=== PATIENT | female | born 1955 | race Caucasian/White ===

== ENCOUNTER 2020-08-11 02:09 | Outpatient (RCR) | payer MEDICARE, OTHER, SELFPAY ==
[2020-08-11] MEDS: COVID-19 VACC, MRNA(PFIZER)/PF 30 MCG/0.3 ML SYRINGE IM (18:42)
[2020-09-01] MEDS: COVID-19 VACC, MRNA(PFIZER)/PF 30 MCG/0.3 ML SYRINGE IM (18:24)
== END 2020-11-10 23:59 ==
LOC: IMMUN 02:09
PROVIDERS: PCP Nurse Practitioner Family; Visit Provider Family Medicine
DX: Z23 Encounter for immunization (principal)
CPT/HCPCS: 0001A; 0002A; 91300

== ENCOUNTER 2023-05-15 14:37 | Inpatient (IN) | payer MEDICARE, OTHER, SELFPAY ==
[2023-05-15 15:30] VITALS: BP 129/69; PULSE 67; RESP 18; TEMP 36.9; O2SAT 98; BMI 26.9
[2023-05-15] MEDS: Oxycodone/Apap 5/325 Tablet PO (18:23)
[2023-05-15 20:15] VITALS: O2SAT 97
[2023-05-15] MEDS: Senna/Docusate Sodium 1 Tablet 2 TABLET PO (21:06)
[2023-05-15] MEDS: Acetaminophen 325 MG Tablet 650 MG PO (21:08)
[2023-05-15 22:00] VITALS: BP 127/75; PULSE 72; RESP 18; TEMP 37.2; O2SAT 97
[2023-05-16] MEDS: Oxycodone/Apap 5/325 Tablet PO ×4 (02:22→21:43)
[2023-05-16 06:02] LABS: Absolute Lymphocyte Count 1.49 X10^3/uL (0.83-4.51); Absolute Neutrophil Count 4.4 X10^3/uL (2.0-7.7); Basophil# 0.04 X10^3/uL; Basophil% 0.5 % (0-1); Eosinophil# 0.51 X10^3/uL; Hematocrit 29.2 % (37-47); Hemoglobin 9.4 g/dL (12.0-15.0); Lymphocyte # 1.49 X10^3/ul (0.83-4.51); Lymphocyte % 20.4 % (19-41); Mean Corp Hgb Conc 32.2 g/dL (32-36); Mean Corpuscular Volume 93.3 fL (81-99); Mean Platelet Vol. 9.7 fl (6.2-12.0); Monocyte# 0.88 X10^3/uL; Monocyte% 12.1 % (0-10); NRBC Flagged by Analyzer 0 % (0-5); Neutrophil # 4.35 X10^3/uL (2.7-7.7); Neutrophil % 59.6 % (47-70); Platelet Count 296 K/mm3 (150-450); RBC Distribution Width CV 12.6 % (11.6-14.6); RBC Distribution Width SD 42.7 fl (35.1-43.9); Red Blood Count 3.13 M/mm3 (4.2-5.4); White Blood Count 7.3 K/mm3 (4.4-11.0)
--- NOTE | 2023-05-16 06:23 | NURSING ---
Dressing changed per order, cleansed with NS and DSD applied. 43 pb intact to surgical incision. No drainage or s/sx of infection noted at this time.
[2023-05-16 06:31] LABS: ALB/GLOB Ratio 0.6 RATIO (0.9-2.4); AST(SGOT) 53 U/L (15-37); Alanine Aminotransfer ALT/SGPT 48 U/L (13-56); Albumin, Serum 2.2 g/dL (3.2-5.0); Alkaline Phosphatase 60 U/L (45-117); Anion Gap 4 (5-15); BUN 19 mg/dL (7-18); BUN/Creat Ratio 28.4 RATIO (10-20); Calcium,Total 8.3 mg/dL (8.5-10.1); Chloride 106 mmol/L (98-107); Creatinine, Serum 0.67 mg/dL (0.55-1.02); EST Glomerular Filtration Rate 93 mL/min (>60); Est Glom Filt Rate - Afr Amer 112 mL/min (>60); Estimated Creatinine Clearance 54.71 ml/min; Globulin 3.5 g/dL (2.2-4.2); Glucose 96 mg/dL (74-106); Magnesium 2.3 mg/dL (1.6-2.6); Phosphorus 3.9 mg/dL (2.5-4.9); Potassium 4.1 mmol/L (3.5-5.1); Protein, Total 5.7 g/dL (6.4-8.2); Sodium Level 139 mmol/L (136-145)
[2023-05-16] MEDS: Acetaminophen 325 MG Tablet 650 MG PO ×2 (07:55→19:49)
[2023-05-16] MEDS: Losartan Potassium 50 MG Tablet PO (07:55)
[2023-05-16] MEDS: Venlafaxine XR 75 MG Capsule PO (07:55)
[2023-05-16] MEDS: Senna/Docusate Sodium 1 Tablet 2 TABLET PO ×2 (07:55→19:50)
[2023-05-16] MEDS: Multivitamins,Therapeutic Tablet 1 TABLET PO (07:55)
[2023-05-16 09:55] VITALS: BP 136/79; PULSE 63; RESP 18; TEMP 36.8; O2SAT 94
--- NOTE | 2023-05-16 10:14 | EX.PCM.HP.RE ---
HPI - General General Date of Admission: 05/15/23 Date of Service: 05/16/23 Chief Complaint: Debility - S/p Hemilaminectomy and fusion HPI Narrative FILIBERTO CORMIER, is a 68 F with PMH HTN, HLD, Anxiety who presents as a transfer from [facility] for physical and occupational therapy. The patient was admitted for an elective hemilaminectomy and fusion of her lumbar spine. The patient reports she has had problems with her back for about 15 years. She tried conservative therapy without improvement and her symptoms were progressively worsening, prompting surgery. The surgery was completed on 05/09, on the day of admission, which went well without complications. The patient clinically improved. Therapy saw the patient who felt she would benefit from rehab. Once stable, she was transferred to [facility] inpatient rehab for 3 hours of daily rehab and strengthening with a goal to return home with [facility]. The patient reports that she is feeling pretty good. She reports her left leg was hurting earlier, but the pain medications must have kicked in. She reports only mild aching in her back and leg currently. She reports her appetite is slowly improving and she is moving her bowels. She thought she did well with therapy this morning. [facility] Medical History Basal cell carcinoma COVID Endometriosis GERD (gastroesophageal reflux disease) IBS (irritable bowel syndrome) Migraine Scoliosis Smoker Home Medications atorvastatin 40 mg tablet 40 mg PO QHS cholesterol 05/15/23 [History Last Taken Unknown] ergocalciferol (vitamin D2) 1,250 mcg (50,000 unit) capsule 50,000 unit PO QMONTH supplement 05/15/23 [History Last Taken 05/09/23] multivitamin 1 tab PO DAILY supplement 05/15/23 [History Last Taken Unknown] oxycodone-acetaminophen 5 mg-325 mg tablet 2 tab PO Q6H PRN pain 05/15/23 [History Last Taken Unknown] valsartan 160 mg tablet 160 mg PO DAILY blood pressure 05/15/23 [History Last Taken Unknown] venlafaxine 75 mg capsule,extended release 24 hr (Effexor XR) 75 mg PO DAILY depression 05/15/23 [History Last Taken Unknown] Allergy/AdvReac Type Severity Reaction Status Date / Time No Known Allergies Allergy Verified 05/15/23 14:47 Family History (Updated 05/16/23 @ 11:[address] Evonne Bishop MD) Father Heart failure Family History no significant family his Surgical History (Updated 05/16/23 @ 11:[address] Evonne Bishop MD) Cataract extraction status History of appendectomy History of tonsillectomy S/P hemilaminotomy S/P ORIF (open reduction internal fixation) fracture Social History (Updated 05/16/23 @ 11:[address] Evonne Bishop MD) household members: none current occupational status: retired current occupation: Worked at [employer] pets and animals: Yes pets and animals: cat(s) and dog(s) Smoking Status: Current every day smoker tobacco type: cigarettes Smoking packs per day: 1.5 Smoking cigarettes per day: 30.0 Years smoked: 5 Smoking pack-years: 7.50 quit status: considering quitting alcohol intake: current alcohol intake frequency: 0-2 drinks per day Alcohol type: beer substance use type: does not use do you feel safe at home: Yes ROS Constitutional Constitutional: Reports weakness; Denies anorexia, change in weight or fever(s) Eyes Eyes: Denies blurry vision or change in vision ENT HEENT: Reports other Details: dry mouth ; Denies abnormal hearing, dizziness, headache(s), nasal congestion or sore throat Cardiovascular Cardiovascular: Reports lightheadedness; Denies abdominal pain, chest pain, dizziness, dyspnea, edema, irregular heart rhythm, leg edema, nausea, numbness in extremities, palpitations, pedal edema, pounding heartbeat, rapid heart rate, vomiting or weight gain Respiratory/Chest Respiratory/Chest: Denies chest tightness, cough or dyspnea Gastrointestinal Gastrointestinal: Denies abdominal pain, constipation, diarrhea, nausea, vomiting or weight changes Genitourinary Genitourinary: Denies burning urination, difficulty urinating or dysuria Musculoskeletal Musculoskeletal: Reports back pain; Denies joint swelling, numbness or tingling Integumentary Integumentary: Denies rash or wounds Neurologic Neurologic: Denies dizziness, frequent falls, headache(s), numbness, syncope, tingling or weakness Psychiatric Psychiatric: Denies anxiety, confusion, depression, suicidal ideation or suicidal thoughts Vital Signs Vital Signs Vital Signs: 05/15/23 15:30 05/15/23 23:00 05/15/23 22:00 Temperature 98.4 F 99.0 F Temperature Source Temporal Temporal Pulse Rate 67 72 Respiratory Rate 18 18 Respiratory Effort Respiratory Depth Respiratory Pattern Blood Pressure 129/69 H 127/75 H Blood Pressure Mean 89 92 Blood Pressure Source Monitor Monitor Blood Pressure Position Semi-Fowlers Semi-Fowlers Blood Pressure Location Left Arm Left Arm Pulse Ox 98 97 Oxygen Delivery Method Room Air Room Air Room Air 05/15/23 20:15 05/16/23 09:55 Temperature 98.3 F Temperature Source Temporal Pulse Rate 63 Respiratory Rate 18 Respiratory Effort Normal Non-Labored Respiratory Depth Normal Respiratory Pattern Normal Blood Pressure 136/79 H Blood Pressure Mean 98 Blood Pressure Source Monitor Blood Pressure Position Semi-Fowlers Blood Pressure Location Right Arm Pulse Ox 97 94 Oxygen Delivery Method Room Air Room Air Weight Weight: 182 lb 2 oz Body Mass Index (BMI) 26.9 Indicators for Scoring Admitted with or Primary Diagnosis of CVA/Stroke: No Hx of CVA/Stroke: No Physical Exam Const alert, oriented x3, no apparent distress and well nourished Constitutional Narrative: Laying in bed General Appearance: cooperative and comfortable; Negative for in distress, ill appearing or diaphoretic Orientation / Consciousness: awake, oriented to person, oriented to place and oriented to time Exam Limitations: Negative for altered mental status HEENT normocephalic, head/scalp atraumatic, moist oral mucous membranes and oropharynx normal Head and Scalp: normocephalic and atraumatic Face and Sinus: normal facial exam Eyes PERRL General Eye: normal appearance of both eyes Chest inspection of chest normal Chest: symmetrical chest wall rise Resp normal respiratory effort, normal air movement, no use of accessory muscles and clear to auscultation bilaterally Effort and Inspection: able to speak in complete sentences and symmetric chest movement; Negative for respiratory distress or audible wheezes Auscultation: clear to auscultation bilaterally Cardio regular rate, regular rhythm and no murmurs Rate: regular rate Rhythm: regular rhythm Heart Sounds: Negative for murmur GI normal to inspection, nondistended, normoactive bowel sounds, soft to palpation, non-tender and non-distended Auscultation: normoactive bowel sounds Palpation: soft; Negative for tender or guarding Back/Spine Back/Spine Narrative: Dressing in place, which is clean, dry and intact Extremity normal to inspection General Extremity: Negative for edema Skin no rashes or lesions noted General Skin Exam: no breakdown Lesions: no lesions Rashes: no rashes Neuro oriented x3 Sensorium / Orientation: awake, alert, oriented to person, oriented to place and oriented to time Speech: speech normal Psych mental status grossly normal, cooperative, affect normal and speech normal Appearance: grossly normal Attitude: calm Results Medical Records Data Attestation: I reviewed the patient's medical records Lab / Micro Data Attestation: I reviewed the patient's lab results. 05/16/23 05:12 05/16/23 05:12 Labs: Laboratory Results - last 24 hr 05/16/23 05:12: WBC 7.3, RBC 3.13 L, Hgb 9.4 L, Hct 29.2 L, MCV 93.3, MCH 30.0, MCHC 32.2, RDW Std Deviation 42.7, RDW Coeff of Lizzy 12.6, Plt Count 296, MPV 9.7, Immature Gran % (Auto) 0.400, Neut % (Auto) 59.6, Lymph % (Auto) 20.4, Flagler % (Auto) 12.1 H, Eos % (Auto) 7.0 H, Baso % (Auto) 0.5, Absolute Neuts (auto) 4.4, Absolute Lymphs (auto) 1.49, Nucleated RBC % 0, Sodium 139, Potassium 4.1, Chloride 106, Carbon Dioxide 29.0, Anion Gap 4 L, BUN 19 H, Creatinine 0.67, Estim Creat Clear Calc 54.71, Est GFR (MDRD) Af Amer 112, Est GFR (MDRD) Non-Af 93, BUN/Creatinine Ratio 28.4 H, Glucose 96, Calcium 8.3 L, Phosphorus 3.9, Magnesium 2.3, Total Bilirubin 0.30, AST 53 H, ALT 48, Alkaline Phosphatase 60, Total Protein 5.7 L, Albumin 2.2 L, Globulin 3.5, Albumin/Globulin Ratio 0.6 L Assessment & Plan Assessment/Plan (1) Debility: PLAN: Will admit to the inpatient rehab for physical and occupational therapy. Will continue with 3 hours of daily therapy for strengthening with a goal to return home with [facility]. Will continue with pain control as needed, a bowel regimen and fall precautions. DVT prophylaxis with ambulation and JAKOB hose. Patient will need to follow up with the spine surgeon upon discharge from rehab unit. (2) S/P hemilaminotomy: PLAN: As above. Patient will wear her brace when out of bed and dressing will be changed daily. Dressing can be removed 7-10 days post op. (3) Chronic back pain: QUALIFIERS: Back pain laterality: midline Back pain location: low back pain Sciatica presence: unspecified whether sciatica present Qualified Code(s): M54.50 - Low back pain, unspecified; G89.29 - Other chronic pain PLAN: As above. (4) Acute blood loss anemia: PLAN: Patient's hemoglobin level was 9.4 on arrival to the rehab unit. Her last hemoglobin at [facility] was 10.7 on 05/12. Will continue to monitor closely. (5) Essential hypertension: PLAN: Blood pressure shows good control. Will continue current management and monitor. (6) Mixed hyperlipidemia: PLAN: Stable. Will continue home medications. (7) Anxiety: PLAN: Stable. Will continue home medications. She denies any current concerns about her mental health nor any thoughts of suicide. (8) Vitamin D deficiency: PLAN: Patient takes monthly vitamin D supplements. Will continue current management. (9) Smokes cigarettes: PLAN: Patient declined nicotine patches. She reports she has been without cigarettes for a week since her hospitalization and hasn't had any cravings. She reports she may want patches upon discharge to ensure she doesn't return to them. Charges/Coding Visit Charges Inpatient E&M: 46758 Init Hosp L2
--- NOTE | 2023-05-16 11:13 | REHABEVAL_ITS ---
Admission Information Primary Diagnosis:: Debility - s/p Hemilaminectomy and fusion Actual Problem List:: Bleeding, Skin Intergrity, Pain, ALteration in Cmfrt, Mobility Impaired, Self Care Deficit and BP, Hypertension Potential Problem List:: DVT, Bleeding, Infection, UTI, Falls, Skin Integrity and Depression Risk of Complications DVT: JAKOB Hose and - (Ambulation) Bleeding: Monitor Lab Values Infection: Clinical Staff to Monitor for S/S of infection: and S/S of infection include fever, redness, warmth, etc. Urinary Tract Infection: Monitor for frequency, burning, discomfort, or incontinence. and Nursing will obtain urine sample for urinalysis and C&S when ordered. Falls: Patient will be evaluated for Fall Precautions and Patient will be placed on Fall Precautions as indicated per protocol. Skin Breakdown: Nursing will assess skin daily using assessment tool. and Nursing will place on Skin Breakdown Precautions as indicated. Pain: Clinical staff will assess patient's pain level per protocol. and Medications will be given, if needed, and the pain level reassessed. Plan of Care Patient needs Physical Therapy: For a minimum of 1 hour and At least 5 out of 7 days Patient needs Physical Therapy to improve:: Mobility, Strengthening, Transfers, ROM, Endurance, Stairs, Gait and Balance Patient needs Occupational Therapy: For a minimum of 1 hour and At least 5 out of 7 days Patient needs Occupational Therapy to improve ADL's incl.: Grooming, Bathing, Dressing, Toileting, Toilet transfers and Household tasks Patient requires 24/7 Rehabilitation Nursing for: Pain Issues, Identifying and preventing risk factors, Monitoring and reporting current medical conditions, Assisting with ambulation, transfer, and all ADL's, Teaching patients about disease process and medications, Family teaching, Providing safe environment, Skin integrity and Medication Management Patient needs Phlebotomy Program Coordinator/ Case Management for: Discharge Planning, Arranging Home Equipment or Services and Family Interventions Patient needs Dietary and Nutrition Services for: Adequate Nutrition Goals Patient will remain: free from falls and or injury at time of discharge. Patient will perform bed mobility at: MOD I level of assist. Patient will complete transfers from bed to chair at: MOD I level of assist. Patient will complete upper body dressing at: MOD I level of assist. Patient will complete lower body dressing at: MOD I level of assist. Patient will complete toileting at: MOD I level of assist. Patient will complete grooming at: MOD I level of assist. Patient's skin will: remain intact and free from infection. Patient will receive: adequate nutrition. Discharge Planning Pt Prognosis for Sig. Practical Improv. w/in Reasonable Time: Fair Estimated Length of stay (days): 7 Anticipated D/C Destination: Home with Home Health
--- NOTE | 2023-05-16 11:52 | CASEMGMT ---
Social Work Pt states has LW/POA, not on file here, in safe at home, not able to have them brought in. Alysia Moctezuma is pt's healthcare POA. OLI Alejandro
--- NOTE | 2023-05-16 12:02 | CASEMGMT ---
Social Work See assessment for full details, pt plans to return home at discharge, open to home health if needed, SW will continue to follow. OLI Alejandro
[2023-05-16 19:39] VITALS: BP 131/75; PULSE 58; RESP 17; TEMP 37.1; O2SAT 100
[2023-05-16] MEDS: Atorvastatin Calcium 40 MG Tablet PO (19:49)
[2023-05-17] MEDS: Acetaminophen 325 MG Tablet 650 MG PO (04:06)
[2023-05-17 07:12] VITALS: BP 152/85; PULSE 64; RESP 16; TEMP 36.7; O2SAT 99
[2023-05-17] MEDS: Losartan Potassium 50 MG Tablet PO (08:57)
[2023-05-17] MEDS: Venlafaxine XR 75 MG Capsule PO (08:57)
[2023-05-17] MEDS: Senna/Docusate Sodium 1 Tablet 2 TABLET PO ×2 (08:57→20:18)
--- NOTE | 2023-05-17 10:05 | EX.PCM.PN.RE ---
Subjective Subjective Patient was admitted for daily rehab following a hospital stay for an elective hemilaminectomy and fusion of her lumbar spine. No events overnight. She reports her back pain is pretty well controlled currently. She does request a different pain medication reporting the percocet seems to cause abnormal dreams for her. She reports some mild nausea without vomiting. She continues to eat well, but still notes a lot of food is not appealing. She is moving her bowels regularly. She has no other questions or concerns at this time. Objective Data Objective Data Vital Signs: Vital Signs Temp Pulse Resp BP Pulse Ox O2 Del Method 98.0 F 64 16 152/85 H 99 Room Air 05/17/23 07:12 05/17/23 07:12 05/17/23 07:12 05/17/23 07:12 05/17/23 07:12 05/17/23 07:12 Oxygen Delivery Method Room Air Weight: 182 lb 2 oz Body Mass Index (BMI) 26.9 Intake & Output: Intake and Output for Last 24 Hours 05/15/23 05/16/23 05/17/23 23:59 23:59 23:59 Intake Total 240 / 800 2080 / 2080 360 / 360 Balance 240 / 800 2080 / 2080 360 / 360 Lab / Micro Data Attestation: I reviewed the patient's lab results. 05/16/23 05:12 05/16/23 05:12 Indicators for Scoring Admitted with or Primary Diagnosis of CVA/Stroke: No Hx of CVA/Stroke: No Physical Exam Const alert, oriented x3, no apparent distress and well nourished Constitutional Narrative: Laying in bed General Appearance: cooperative and comfortable; Negative for in distress, ill appearing or diaphoretic Orientation / Consciousness: awake, oriented to person, oriented to place and oriented to time Exam Limitations: Negative for altered mental status HEENT normocephalic and head/scalp atraumatic Head and Scalp: normocephalic and atraumatic Face and Sinus: normal facial exam Eyes General Eye: normal appearance of both eyes Chest inspection of chest normal Chest: symmetrical chest wall rise Resp normal respiratory effort, normal air movement, no use of accessory muscles and clear to auscultation bilaterally Effort and Inspection: able to speak in complete sentences and symmetric chest movement; Negative for respiratory distress or audible wheezes Auscultation: clear to auscultation bilaterally Cardio regular rate, regular rhythm and no murmurs Rate: regular rate Rhythm: regular rhythm Heart Sounds: Negative for murmur GI normal to inspection, nondistended, normoactive bowel sounds, soft to palpation, non-tender and non-distended Auscultation: normoactive bowel sounds Palpation: soft; Negative for tender or guarding Extremity normal to inspection General Extremity: Negative for edema Skin no rashes or lesions noted General Skin Exam: no breakdown Lesions: no lesions Rashes: no rashes Neuro oriented x3 Sensorium / Orientation: awake, alert, oriented to person, oriented to place and oriented to time Speech: speech normal Psych mental status grossly normal, cooperative, affect normal and speech normal Appearance: grossly normal Attitude: calm Assessment & Plan Assessment/Plan (1) Debility: PLAN: Will continue with PT/OT and follow up on findings and recommendations. Continue with PRN pain management, bowel regimen and fall precautions. The patient is requesting a different pain medication, so will change to norco and monitor. (2) S/P hemilaminotomy: PLAN: As above. Patient will wear her brace when out of bed and dressing will be changed daily. Dressing can be removed 7-10 days post op. Patient will need to follow up with the spine surgeon upon discharge from rehab unit. (3) Chronic back pain: QUALIFIERS: Back pain laterality: midline Back pain location: low back pain Sciatica presence: unspecified whether sciatica present Qualified Code(s): M54.50 - Low back pain, unspecified; G89.29 - Other chronic pain PLAN: As above. (4) Acute blood loss anemia: PLAN: Patient's hemoglobin level was 9.4 on arrival to the rehab unit. Her last hemoglobin at [facility] was 10.7 on 05/12. Will continue to monitor closely and repeat on 05/22. (5) Essential hypertension: PLAN: Blood pressure shows good control. Will continue current management and monitor. (6) Mixed hyperlipidemia: PLAN: Stable. Will continue home medications. (7) Anxiety: PLAN: Stable. Will continue home medications. She denies any current concerns about her mental health nor any thoughts of suicide. (8) Vitamin D deficiency: PLAN: Patient takes monthly vitamin D supplements. Will continue current management. (9) Smokes cigarettes: PLAN: Patient declined nicotine patches. She reports she has been without cigarettes for a week since her hospitalization and hasn't had any cravings. She reports she may want patches upon discharge to ensure she doesn't return to them. Charges/Coding Visit Charges Inpatient E&M: 51678 Subs Hosp L1
[2023-05-17] MEDS: Multivitamins,Therapeutic Tablet 1 TABLET PO (11:58)
[2023-05-17] MEDS: HYDROcodone Bitartrate/Apap 5/325 Tablet PO ×2 (13:52→20:17)
[2023-05-17] MEDS: Atorvastatin Calcium 40 MG Tablet PO (20:18)
[2023-05-17 20:27] VITALS: BP 148/76; PULSE 60; RESP 17; TEMP 36.7; O2SAT 97
[2023-05-17 22:00] VITALS: PULSE 71; RESP 14; O2SAT 95
[2023-05-18] MEDS: Acetaminophen 325 MG Tablet 650 MG PO ×3 (00:34→15:32)
[2023-05-18] MEDS: HYDROcodone Bitartrate/Apap 5/325 Tablet PO ×3 (03:41→19:56)
[2023-05-18] MEDS: Senna/Docusate Sodium 1 Tablet 2 TABLET PO ×2 (07:58→20:19)
[2023-05-18] MEDS: Losartan Potassium 50 MG Tablet PO (07:58)
[2023-05-18] MEDS: Venlafaxine XR 75 MG Capsule PO (07:58)
[2023-05-18 08:12] VITALS: BP 172/78; PULSE 79; RESP 15; TEMP 36.2; O2SAT 96
--- NOTE | 2023-05-18 08:24 | PN.REHAB_ITS ---
Subjective Subjective Patient was admitted for daily rehab following a hospital stay for an elective hemilaminectomy and fusion of her lumbar spine. No events overnight. She was seen today on TEAM rounds. Per therapy, she is overall doing well. She requires min assist with bathing, although is noted to be impulsive and tries to bend, which she is not supposed to be doing. She is able to dress her upper body, but does require assistance with lower body dressing. She is at contact guard assist for toilet transfers and stand by assist for getting in/out of bed. Yesterday, the patient's pain medications were adjusted. She does think that it is doing better today and rates her pain 3/10 currently. She reports her nausea has resolved. She is eating well and moving her bowels. She has no other questions or concerns at this time. Objective Data Objective Data Vital Signs: Vital Signs Temp Pulse Resp BP Pulse Ox O2 Del Method 97.2 F L 79 15 172/78 H 96 Room Air 05/18/23 08:12 05/18/23 08:12 05/18/23 08:12 05/18/23 08:12 05/18/23 08:12 05/18/23 08:12 Oxygen Delivery Method Room Air Weight: 182 lb 2 oz Body Mass Index (BMI) 26.9 Intake & Output: Intake and Output for Last 24 Hours 05/16/23 05/17/23 05/18/23 23:59 23:59 23:59 Intake Total 2079 / 0 1100 / 1220 480 / 480 Output Total 600 / 800 400 / 400 Balance 2079 / 0 500 / 420 80 / 80 Lab / Micro Data Attestation: I reviewed the patient's lab results. 05/16/23 05:12 05/16/23 05:12 Indicators for Scoring Admitted with or Primary Diagnosis of CVA/Stroke: No Hx of CVA/Stroke: No Physical Exam Const alert, oriented x3, no apparent distress and well nourished Constitutional Narrative: Sitting up in the chair, working with therapy General Appearance: cooperative and comfortable; Negative for in distress, ill appearing or diaphoretic Orientation / Consciousness: awake, oriented to person, oriented to place and oriented to time Exam Limitations: Negative for altered mental status HEENT normocephalic and head/scalp atraumatic Head and Scalp: normocephalic and atraumatic Face and Sinus: normal facial exam Eyes General Eye: normal appearance of both eyes Chest inspection of chest normal Chest: symmetrical chest wall rise Resp normal respiratory effort, normal air movement, no use of accessory muscles and clear to auscultation bilaterally Effort and Inspection: able to speak in complete sentences and symmetric chest movement; Negative for respiratory distress or audible wheezes Auscultation: clear to auscultation bilaterally Cardio regular rate, regular rhythm and no murmurs Rate: regular rate Rhythm: regular rhythm Heart Sounds: Negative for murmur GI normal to inspection, nondistended, normoactive bowel sounds, soft to palpation, non-tender and non-distended Auscultation: normoactive bowel sounds Palpation: soft; Negative for tender or guarding Back/Spine Back/Spine Narrative: Back brace in place. Dressing was removed. Susan intact. Extremity normal to inspection General Extremity: Negative for edema Skin no rashes or lesions noted General Skin Exam: no breakdown Lesions: no lesions Rashes: no rashes Neuro oriented x3 Sensorium / Orientation: awake, alert, oriented to person, oriented to place and oriented to time Speech: speech normal Psych mental status grossly normal, cooperative, affect normal and speech normal Appearance: grossly normal Attitude: calm Assessment & Plan Assessment/Plan (1) Debility: PLAN: Will continue with PT/OT and follow up on findings and recommendations. Discharge is planned for 05/28 and will be either home with [facility] versus discharge to a SNF since she lives at home alone. Continue with PRN pain management, bowel regimen and fall precautions. (2) S/P hemilaminotomy: PLAN: As above. Patient will continue to wear her brace when out of bed. Patient will need to follow up with the spine surgeon upon discharge from inpatient rehab unit. (3) Chronic back pain: QUALIFIERS: Back pain laterality: midline Back pain location: low back pain Sciatica presence: unspecified whether sciatica present Qualified Code(s): M54.50 - Low back pain, unspecified; G89.29 - Other chronic pain PLAN: As above. (4) Acute blood loss anemia: PLAN: Patient's hemoglobin level was 9.4 on arrival to the rehab unit. [facility] at [facility] was 10.7 on 05/12. Will continue to monitor closely and repeat on 05/22. (5) Essential hypertension: PLAN: Blood pressure is quite elevated this morning. She denies any pain curre ntly, but nursing did report she complained of pain in her back earlier, which may be contributing. Will continue current management and monitor closely. If it remains elevated, will increase patient's losartan dosing. (6) Mixed hyperlipidemia: PLAN: Stable. Will continue home medications. (7) Anxiety: PLAN: Stable. Will continue home medications. She denies any current concerns about her mental health nor any thoughts of suicide. (8) Vitamin D deficiency: PLAN: Patient takes monthly vitamin D supplements. Will continue current management. (9) Smokes cigarettes: PLAN: Patient declined nicotine patches. She reports she has been without cigarettes for a week since her hospitalization and hasn't had any cravings. She reports she may want patches upon discharge to ensure she doesn't return to them. Charges/Coding Visit Charges Inpatient E&M: 57456 Subs Hosp L2
--- NOTE | 2023-05-18 09:05 | CASEMGMT ---
Social Work IDT met with patient for Team meeting. Offered to contact friend or family, but pt denied. DIscussed patient's progress in PT/OT/ST/SN. Educated to Medicare approval of 13 days with DC 05/28. Pt lives home alone and noted limited support. Pt stated she would hire someone to help her. SW provided and educated to [facility] resources. Also offered SNF stay, if needed at time of DC. Will ReTeam next week. SW will continue to follow for DC planning. MARIUSZ MorrellW
[2023-05-18] MEDS: Multivitamins,Therapeutic Tablet 1 TABLET PO (12:08)
[2023-05-18 20:15] VITALS: BP 141/76; PULSE 57; RESP 18; TEMP 36.2; O2SAT 98
[2023-05-18] MEDS: Atorvastatin Calcium 40 MG Tablet PO (20:19)
[2023-05-19] MEDS: HYDROcodone Bitartrate/Apap 5/325 Tablet PO ×3 (02:08→20:48)
--- NOTE | 2023-05-19 02:34 | NURSING ---
0212 pt was tearful and very painful in her back and hips, staff was unable to medicate until this time. pt had been requesting pain medication since 2299. pt had been medicated at the beginning of the shift for the same pain
[2023-05-19 06:00] VITALS: BMI 26.4
[2023-05-19 07:52] VITALS: BP 171/83; PULSE 65; RESP 17; TEMP 36.8; O2SAT 96
[2023-05-19] MEDS: Venlafaxine XR 75 MG Capsule PO (07:53)
[2023-05-19] MEDS: Senna/Docusate Sodium 1 Tablet 2 TABLET PO (07:53)
[2023-05-19] MEDS: Losartan Potassium 50 MG Tablet PO (07:53)
[2023-05-19] MEDS: Losartan Potassium 25 MG Tablet PO (09:47)
[2023-05-19] MEDS: Multivitamins,Therapeutic Tablet 1 TABLET PO (11:30)
[2023-05-19] MEDS: Acetaminophen 325 MG Tablet 650 MG PO (12:44)
[2023-05-19 20:40] VITALS: BP 128/89; PULSE 61; RESP 16; TEMP 36.9; O2SAT 96
[2023-05-19] MEDS: Atorvastatin Calcium 40 MG Tablet PO (20:49)
[2023-05-20] MEDS: HYDROcodone Bitartrate/Apap 5/325 Tablet PO ×4 (03:47→21:42)
[2023-05-20 07:00] VITALS: BP 169/56; PULSE 65; RESP 18; TEMP 36.4; O2SAT 100
[2023-05-20] MEDS: Venlafaxine XR 75 MG Capsule PO (10:01)
[2023-05-20] MEDS: Multivitamins,Therapeutic Tablet 1 TABLET PO (11:38)
[2023-05-20] MEDS: Losartan Potassium 25 MG Tablet 75 MG PO (11:38)
[2023-05-20] MEDS: Acetaminophen 325 MG Tablet 650 MG PO (13:50)
[2023-05-20 19:30] VITALS: BP 159/85; PULSE 64; RESP 15; TEMP 36.8; O2SAT 97
[2023-05-20] MEDS: Senna/Docusate Sodium 1 Tablet 2 TABLET PO (21:42)
[2023-05-20] MEDS: Atorvastatin Calcium 40 MG Tablet PO (21:42)
[2023-05-20 22:00] VITALS: PULSE 64; RESP 15; O2SAT 97
[2023-05-21] MEDS: Acetaminophen 325 MG Tablet 650 MG PO (01:58)
[2023-05-21] MEDS: HYDROcodone Bitartrate/Apap 5/325 Tablet PO ×4 (05:23→21:44)
[2023-05-21 07:24] VITALS: BP 161/80; PULSE 62; RESP 16; TEMP 36.3; O2SAT 95
[2023-05-21] MEDS: Senna/Docusate Sodium 1 Tablet 2 TABLET PO ×2 (09:02→21:45)
[2023-05-21] MEDS: Venlafaxine XR 75 MG Capsule PO (09:03)
[2023-05-21] MEDS: Losartan Potassium 25 MG Tablet 75 MG PO (09:03)
[2023-05-21] MEDS: Multivitamins,Therapeutic Tablet 1 TABLET PO (11:41)
[2023-05-21 19:39] VITALS: BP 168/82; PULSE 65; RESP 15; TEMP 37.1; O2SAT 99
[2023-05-21] MEDS: Atorvastatin Calcium 40 MG Tablet PO (21:45)
[2023-05-21 22:00] VITALS: PULSE 73; RESP 15; O2SAT 99
[2023-05-22] MEDS: Acetaminophen 325 MG Tablet 650 MG PO ×2 (03:20→19:43)
[2023-05-22 07:21] LABS: Hematocrit 34.9 % (37-47); Hemoglobin 11.1 g/dL (12.0-15.0)
[2023-05-22 08:04] VITALS: BP 152/84; PULSE 64; RESP 17; TEMP 36.8; O2SAT 98
[2023-05-22] MEDS: Losartan Potassium 25 MG Tablet 75 MG PO (08:07)
[2023-05-22] MEDS: Senna/Docusate Sodium 1 Tablet 2 TABLET PO (08:07)
[2023-05-22] MEDS: Venlafaxine XR 75 MG Capsule PO (08:07)
[2023-05-22] MEDS: HYDROcodone Bitartrate/Apap 5/325 Tablet PO ×3 (08:10→21:49)
--- NOTE | 2023-05-22 12:02 | PN.REHAB_ITS ---
Subjective Subjective Patient was admitted for daily rehab following a hospital stay for an elective hemilaminectomy and fusion of her lumbar spine. No events overnight. She reports her pain is pretty well controlled, rating it 2-3/10 currently, but does wonder if she is getting used to the pain medications. She just worked with therapy and thought she is did well, although states she is feeling tired now. She is eating well. She does report a bit of diarrhea from her IBS and is trying to avoid foods that trigger it in her diet. She has no questions or concerns at this time. Objective Data Objective Data Vital Signs: Vital Signs Temp Pulse Resp BP Pulse Ox O2 Del Method 98.3 F 64 17 152/84 H 98 Room Air 05/22/23 08:04 05/22/23 08:04 05/22/23 08:04 05/22/23 08:04 05/22/23 08:04 05/22/23 08:04 Oxygen Delivery Method Room Air Weight: 178 lb 8 oz Body Mass Index (BMI) 26.4 Intake & Output: Intake and Output for Last 24 Hours 05/20/23 05/21/23 05/22/23 23:59 23:59 23:59 Intake Total 1969 1380 / 1380 610 / 610 Output Total 750 / 750 Balance 1969 630 / 630 610 / 610 Lab / Micro Data Attestation: I reviewed the patient's lab results. 05/22/23 05:47 05/16/23 05:12 Labs: Laboratory Results - last 24 hr 05/22/23 05:47: Hgb 11.1 L, Hct 34.9 L Indicators for Scoring Admitted with or Primary Diagnosis of CVA/Stroke: No Hx of CVA/Stroke: No Physical Exam Const alert, oriented x3, no apparent distress and well nourished Constitutional Narrative: Sitting up in the wheelchair, working with therapy General Appearance: cooperative and comfortable; Negative for in distress, ill appearing or diaphoretic Orientation / Consciousness: awake, oriented to person, oriented to place and oriented to time Exam Limitations: Negative for altered mental status HEENT normocephalic and head/scalp atraumatic Head and Scalp: normocephalic and atraumatic Face and Sinus: normal facial exam Eyes General Eye: normal appearance of both eyes Chest inspection of chest normal Chest: symmetrical chest wall rise Resp normal respiratory effort, normal air movement, no use of accessory muscles and clear to auscultation bilaterally Effort and Inspection: able to speak in complete sentences and symmetric chest movement; Negative for respiratory distress or audible wheezes Auscultation: clear to auscultation bilaterally Cardio regular rate, regular rhythm and no murmurs Rate: regular rate Rhythm: regular rhythm Heart Sounds: Negative for murmur GI normal to inspection, nondistended, normoactive bowel sounds, soft to palpation, non-tender and non-distended Auscultation: normoactive bowel sounds Palpation: soft; Negative for tender or guarding Back/Spine Back/Spine Narrative: Back brace in place. Extremity normal to inspection General Extremity: Negative for edema Skin no rashes or lesions noted General Skin Exam: no breakdown Lesions: no lesions Rashes: no rashes Neuro oriented x3 Sensorium / Orientation: awake, alert, oriented to person, oriented to place and oriented to time Speech: speech normal Psych mental status grossly normal, cooperative, affect normal and speech normal Appearance: grossly normal Attitude: calm Assessment & Plan Assessment/Plan (1) Debility: PLAN: Will continue with PT/OT and follow up on findings and recommendations. Discharge is planned for 05/28 to a SNF. Continue with PRN pain management, bowel regimen and fall precautions. (2) S/P hemilaminotomy: PLAN: As above. Patient will continue to wear her brace when out of bed. Patient will need to follow up with the spine surgeon upon discharge from inpatient rehab unit. (3) Chronic back pain: QUALIFIERS: Back pain location: low back pain Back pain lat erality: midline Sciatica presence: unspecified whether sciatica present Qualified Code(s): M54.50 - Low back pain, unspecified; G89.29 - Other chronic pain PLAN: As above. (4) Acute blood loss anemia: PLAN: Resolved. Patient's hemoglobin level was 9.4 on arrival to the rehab unit. Repeat this am was 11.1. Will continue to monitor. (5) Essential hypertension: PLAN: Blood pressure remains slightly elevated, but is improved. Losartan dose was increased last week. Will continue current management and monitor closely. If it remains elevated, will increase patient's losartan dosing further. (6) Mixed hyperlipidemia: PLAN: Stable. Will continue home medications. (7) Anxiety: PLAN: Stable. Will continue home medications. She denies any current concerns about her mental health nor any thoughts of suicide. (8) Vitamin D deficiency: PLAN: Patient takes monthly vitamin D supplements. Will continue current management. (9) Smokes cigarettes: PLAN: Patient declined nicotine patches. She reports she has been without cigarettes for a week since her hospitalization and hasn't had any cravings. She reports she may want patches upon discharge to ensure she doesn't return to them. Charges/Coding Visit Charges Inpatient E&M: 21416 Subs Hosp L1
[2023-05-22] MEDS: Multivitamins,Therapeutic Tablet 1 TABLET PO (12:27)
--- NOTE | 2023-05-22 15:16 | CASEMGMT ---
Social Work SW spoke with pt to follow up on DC plans. Pt states d/t to no support, she would like to DC to a SNF short term. SW offered SNF list in area with quality and resource data but pt inquired about TCU. SW noted pt is INN with insurance and offered to make referral. Pt would prefer to stay in [facility] and agreeable to referral. SW phoned referral and TCU can accept. SW updated pt. Plan: DC 05/28 to TCU, skilled MARIUSZ MorrellW
[2023-05-22 19:28] VITALS: BP 142/88; PULSE 64; RESP 17; TEMP 37.2; O2SAT 99
[2023-05-22 19:51] VITALS: PULSE 64; RESP 17; O2SAT 99
[2023-05-22] MEDS: Atorvastatin Calcium 40 MG Tablet PO (21:50)
[2023-05-23] MEDS: HYDROcodone Bitartrate/Apap 5/325 Tablet PO ×3 (03:42→22:51)
[2023-05-23] MEDS: Losartan Potassium 25 MG Tablet 75 MG PO (07:41)
[2023-05-23] MEDS: Venlafaxine XR 75 MG Capsule PO (07:42)
[2023-05-23 07:49] VITALS: BP 141/81; PULSE 78; RESP 16; TEMP 36.6; O2SAT 96
[2023-05-23 08:51] VITALS: PULSE 78; O2SAT 96
--- NOTE | 2023-05-23 09:29 | NURSING ---
Contacted Dr Chappell's office to reschedule appt. Waiting for return call.
[2023-05-23] MEDS: Multivitamins,Therapeutic Tablet 1 TABLET PO (11:58)
[2023-05-23 14:18] VITALS: BP 124/70; PULSE 62; RESP 19; TEMP 36.1; O2SAT 97
[2023-05-23] MEDS: Acetaminophen 325 MG Tablet 650 MG PO (19:33)
[2023-05-23 22:00] VITALS: BP 124/70; PULSE 68; RESP 19; TEMP 36.1; O2SAT 97
[2023-05-23] MEDS: Atorvastatin Calcium 40 MG Tablet PO (22:51)
[2023-05-24] MEDS: HYDROcodone Bitartrate/Apap 5/325 Tablet PO ×3 (04:12→20:29)
[2023-05-24 08:08] VITALS: BP 161/80; PULSE 61; RESP 18; TEMP 36.8; O2SAT 97
[2023-05-24] MEDS: Losartan Potassium 25 MG Tablet 75 MG PO (08:24)
[2023-05-24] MEDS: Venlafaxine XR 75 MG Capsule PO (08:24)
--- NOTE | 2023-05-24 09:20 | EX.PCM.PN.RE ---
Subjective Subjective Patient was admitted for daily rehab following a hospital stay for an elective hemilaminectomy and fusion of her lumbar spine. No events overnight. She reports her pain is pretty well controlled, rating it 4/10 currently. She thinks the medications take a while to kick in, which does delay her ability to fall asleep. Once she falls asleep, however, she reports she sleeps well. She continues to feel that she is doing well with therapy and making progress. She is still eating well and moving her bowels, although didn't have a BM yesterday. She has no questions or concerns at this time. Objective Data Objective Data Vital Signs: Vital Signs Temp Pulse Resp BP Pulse Ox O2 Del Method 98.2 F 61 18 161/80 H 97 Room Air 05/24/23 08:08 05/24/23 08:08 05/24/23 08:08 05/24/23 08:08 05/24/23 08:08 05/24/23 08:08 Oxygen Delivery Method Room Air Weight: 178 lb 8 oz Body Mass Index (BMI) 26.4 Intake & Output: Intake and Output for Last 24 Hours 05/22/23 05/23/23 05/24/23 23:59 23:59 23:59 Intake Total 1850 / 1850 1340 / 1340 660 / 660 Output Total 800 / 800 Balance 1850 / 1850 540 / 540 660 / 660 Lab / Micro Data Attestation: I reviewed the patient's lab results. 05/22/23 05:47 05/16/23 05:12 Indicators for Scoring Admitted with or Primary Diagnosis of CVA/Stroke: No Hx of CVA/Stroke: No Physical Exam Const alert, oriented x3, no apparent distress and well nourished Constitutional Narrative: Laying in bed General Appearance: cooperative and comfortable; Negative for in distress, ill appearing or diaphoretic Orientation / Consciousness: awake, oriented to person, oriented to place and oriented to time Exam Limitations: Negative for altered mental status HEENT normocephalic and head/scalp atraumatic Head and Scalp: normocephalic and atraumatic Face and Sinus: normal facial exam Eyes General Eye: normal appearance of both eyes Chest inspection of chest normal Chest: symmetrical chest wall rise Resp normal respiratory effort, normal air movement, no use of accessory muscles and clear to auscultation bilaterally Effort and Inspection: able to speak in complete sentences and symmetric chest movement; Negative for respiratory distress or audible wheezes Auscultation: clear to auscultation bilaterally Cardio regular rate, regular rhythm and no murmurs Rate: regular rate Rhythm: regular rhythm Heart Sounds: Negative for murmur GI normal to inspection, nondistended, normoactive bowel sounds, soft to palpation, non-tender and non-distended Auscultation: normoactive bowel sounds Palpation: soft; Negative for tender or guarding Back/Spine Back/Spine Narrative: [place] in place with some scabbing over. Minimal erythema around incision/pb. Extremity normal to inspection General Extremity: Negative for edema Skin no rashes or lesions noted General Skin Exam: no breakdown Lesions: no lesions Rashes: no rashes Neuro oriented x3 Sensorium / Orientation: awake, alert, oriented to person, oriented to place and oriented to time Speech: speech normal Psych mental status grossly normal, cooperative, affect normal and speech normal Appearance: grossly normal Attitude: calm Assessment & Plan Assessment/Plan (1) Debility: PLAN: Will continue with PT/OT and follow up on findings and recommendations. Discharge is planned for 05/28 to a SNF. Continue with PRN pain management, bowel regimen and fall precautions. (2) S/P hemilaminotomy: PLAN: As above. Patient will continue to wear her brace when out of bed. Patient will need to follow up with the spine surgeon upon discharge from inpatient rehab unit. (3) Chronic back pain: QUALIFIERS: Back pain laterality: midline Back pain location: low back pain Sciatica presence: unspecified whether sciatica present Qualified Code(s): M54.50 - Low back pain, unspecified; G89.29 - Other chronic pain PLAN: As above. (4) Acute blood loss anemia: PLAN: Resolved. Patient's hemoglobin level was 9.4 on arrival to the rehab unit. Repeat yesterday was 11.1. Will continue to monitor. (5) Essential hypertension: PLAN: Blood pressure remains slightly elevated. Losartan dose was increased last week. Will continue current management and monitor closely. If it remains elevated, will increase patient's losartan dosing further. (6) Mixed hyperlipidemia: PLAN: Stable. Will continue home medications. (7) Anxiety: PLAN: Stable. Will continue home medications. She denies any current concerns about her mental health nor any thoughts of suicide. (8) Vitamin D deficiency: PLAN: Patient takes monthly vitamin D supplements. Will continue current management. (9) Smokes cigarettes: PLAN: Patient declined nicotine patches. She reports she has been without cigarettes for a week since her hospitalization and hasn't had any cravings. She reports she may want patches upon discharge to ensure she doesn't return to them. Charges/Coding Visit Charges Inpatient E&M: 51289 Subs Hosp L1
[2023-05-24] MEDS: Multivitamins,Therapeutic Tablet 1 TABLET PO (11:55)
[2023-05-24] MEDS: Senna/Docusate Sodium 1 Tablet 2 TABLET PO ×2 (11:56→20:26)
[2023-05-24 20:15] VITALS: BP 130/69; PULSE 73; RESP 12; TEMP 36.6; O2SAT 96
[2023-05-24] MEDS: Atorvastatin Calcium 40 MG Tablet PO (20:29)
[2023-05-25] MEDS: HYDROcodone Bitartrate/Apap 5/325 Tablet PO ×3 (02:59→19:49)
[2023-05-25] MEDS: Senna/Docusate Sodium 1 Tablet 2 TABLET PO ×2 (09:05→19:49)
[2023-05-25] MEDS: Venlafaxine XR 75 MG Capsule PO (09:05)
[2023-05-25] MEDS: Losartan Potassium 25 MG Tablet 75 MG PO (09:06)
[2023-05-25 09:11] VITALS: BP 111/67; PULSE 68; RESP 17; TEMP 36.3; O2SAT 98
[2023-05-25] MEDS: Multivitamins,Therapeutic Tablet 1 TABLET PO (11:13)
--- NOTE | 2023-05-25 13:15 | CASEMGMT ---
Social Work IDT met with patient for Team meeting. Discussed patient's progress in PT/OT/SN. Pt's f/u appt with the surgeon is scheduled for 06/09. D/t the holiday, pt is agreeable to DC to TCU on 05/27. Pt's goal is to DC home before f/u appt. No other issues noted. Plan: DC 05/27 to TCU MARIUSZ MorrellW
--- NOTE | 2023-05-25 14:11 | PN_ITS ---
Subjective Subjective Tran was seen on team rounds today. There was no family to participate. Afebrile VSS-occasionally mildly elevated blood pressure, most likely secondary to pain. Maintaining appropriate oxygen saturation on RA Oral intake is good Discussed with nursing - no problems that need addressed Reviewed the PT/OT notes Medication list reviewed. she is c/o not sleeping well at night due to uncontrolled pain. She has local pain around the incision that is exacerbated by lying on her back and by sitting in the chair. She also is having radicular pain in the BL anterior thighs. She tells me that the numbness in her legs and the pain was better almost immediately after surgery. Tran denies lightheadedness, vertigo, CP, SOB at rest, SOB with exertion, cough, nausea, vomiting, abd pain, diarrhea, constipati on, dysuria, calf pain and ankle swelling. Objective Data Objective Data Vital Signs: Vital Signs Temp Pulse Resp BP Pulse Ox O2 Del Method 97.4 F L 68 17 111/67 98 Room Air 05/25/23 09:11 05/25/23 09:11 05/25/23 09:11 05/25/23 09:11 05/25/23 09:11 05/25/23 09:11 Oxygen Delivery Method Room Air Weight: 178 lb 8 oz Body Mass Index (BMI) 26.4 Intake & Output: Intake and Output for Last 24 Hours 05/23/23 05/24/23 05/25/23 23:59 23:59 23:59 Intake Total 1340 / 1340 1300 / 1300 1040 / 1040 Output Total 800 / 800 Balance 540 / 540 1300 / 1300 1040 / 1040 Lab / Micro Data 05/22/23 05:47 05/16/23 05:12 Assessment & Plan Assessment/Plan (1) Debility: (2) S/P hemilaminotomy: (3) Acute blood loss anemia: (4) Radicular pain of both lower extremities: (5) Essential hypertension: (6) Mixed hyperlipidemia: (7) Anxiety: (8) Vitamin D deficiency: (9) Smokes cigarettes: PLAN: Plan 1. Continue therapy 2. And gabapentin 300 mg at 8 PM nightly to help with radicular pain in the anterior thighs that she has while sleeping that awakens her. Continue narcotics as previously ordered. 3. Plan discharge tomorrow to TCU. Patient lives alone and has no help available when she is discharged so additional therapy is recommended prior to discharge home. Charges/Coding Visit Charges Inpatient E&M: 76330 Subs Hosp L2
[2023-05-25] MEDS: Gabapentin 300 MG Capsule PO (19:49)
[2023-05-25] MEDS: Atorvastatin Calcium 40 MG Tablet PO (19:49)
[2023-05-25 19:50] VITALS: BP 145/81; PULSE 74; RESP 15; TEMP 36.7; O2SAT 94
[2023-05-26] MEDS: Acetaminophen 325 MG Tablet 650 MG PO (05:16)
[2023-05-26 08:01] VITALS: BP 179/85; PULSE 64; RESP 16; TEMP 36.3; O2SAT 97
[2023-05-26 08:02] VITALS: BMI 25.4
[2023-05-26] MEDS: Venlafaxine XR 75 MG Capsule PO (10:32)
[2023-05-26] MEDS: Losartan Potassium 25 MG Tablet 75 MG PO (10:32)
[2023-05-26] MEDS: Senna/Docusate Sodium 1 Tablet 2 TABLET PO ×2 (10:32→21:29)
[2023-05-26] MEDS: Multivitamins,Therapeutic Tablet 1 TABLET PO (10:33)
[2023-05-26] MEDS: HYDROcodone Bitartrate/Apap 5/325 Tablet PO ×2 (13:07→21:29)
--- NOTE | 2023-05-26 14:07 | TREXTCAR_ITS ---
Diet Diet Order/Speech Therapy: 05/15/23 15:04 low fat/cholesterol Routine Orders/Code Status Enema Type: Fleetz Enema Frequency: Daily PRN Suppository Type: Dulcolax 10mg Suppository Frequency: Daily PRN O2 Frequency: PRN Keep PO Greater than or Equal to (%): 90 Code Status: Full Code Wound(s) Back: Wound Type: Surgical Incision to the top rt of the incision: Wound Type: Surgical Incision Therapies Weight Bearing: Full weight bearing Extremity Affected:: Bilateral Lower Physical Therapy: Eval and Treat Occupational Therapy: Eval and Treat Problem/Diagnosis (1) Debility: Status: Acute Code(s): R53.81 - Other malaise (2) Hx of decompressive lumbar laminectomy: Status: Acute Code(s): Z98.890 - Other specified postprocedural states Comment: With fusion (3) Acute blood loss anemia: Status: Acute Code(s): D62 - Acute posthemorrhagic anemia (4) Radicular pain of both lower extremities: Status: Chronic Code(s): M54.10 - Radiculopathy, site unspecified (5) Essential hypertension: Status: Chronic Code(s): I10 - Essential (primary) hypertension (6) Mixed hyperlipidemia: Status: Chronic Code(s): E78.2 - Mixed hyperlipidemia (7) Anxiety: Status: Chronic Code(s): F41.9 - Anxiety disorder, unspecified (8) Vitamin D deficiency: Status: Chronic Code(s): E55.9 - Vitamin D deficiency, unspecified (9) Smokes cigarettes: Status: Chronic Code(s): F17.210 - Nicotine dependence, cigarettes, uncomplicated Plan Transfer to TCU tomorrow for additional therapy prior to returning home. She lives alone. Allergies/Procedures Done in Hospital Allergies No Known Allergies Allergy (Verified 05/15/23 14:47) Procedures: None Type of Care/Length of Stay Estimated LOS: Convalescent Care Less Than 30 days Type of Care Needed: Skilled Rehab Potential: Good Prognosis: Good Additional Orders/Day of Discharge H&P will serve as current which was dated: 05/16/23 Day of Discharge: 05/27/23 Dietary and Speech Recommendations Dietitian Recommendations/Changes: Continue Regular diet to optimize oral intakes. Follow Up Care Please follow up with your Primary Care Physician in: Following discharge from TCU. Please Follow Up With: J Luis Leon MD When: Following DC from TCU Discharge Plan Admission Admit Date/Time: 05/15/23 14:37 Primary Reason for Your Visit: Physical debility due to spinal stenosis with laminectomy/fusion LS spine Attending Provider: Ava Castle Primary Care Provider: Donte Woodson [employer] Providers: Kwan Lai Instructions Patient Instructions: Laminectomy, Laminectomy Dc, Caring for Your Incision Additional Instructions / Restrictions: 1. No bending, Lifting or twisting. 2. Do not sit or lie in bed for more than 1 hour during the day without getting up and taking a walk.......this will help with stiffness/pain and will also help to prevent blood clots in the legs. 3. It is going to take at least a few months before you are back to your baseline. You will fatigue more easily and will need more sleep than normal to allow your body to heal. 4. I have started you on Gabapentin at night to help with the nerve pain in your anterior thighs. I am hoping as the swelling decreases the nerve pain will go away. Discharge Orders/Prescriptions Prescriptions: New hydrocodone-acetaminophen 5-325 mg Tablet 1 - 2 tab PO Q6H PRN PRN (Reason: Pain Score 4-10) 1 Days Qty: 1 0RF Rx Instructions: 5 mg for pain 4-6 and 10 mg for pain 7 and above. hydrocodone-acetaminophen 5-325 mg Tablet 2 tab PO QHS 1 Days Qty: 2 0RF sennosides-docusate sodium [Stool Softener-Stimulant Laxat] 8.6-50 mg Tablet 2 tab PO BID Qty: 1 0RF magnesium hydroxide 400 mg/5 mL Suspension 30 ml PO X1 PRN (Reason: Constipation) Qty: 30 0RF bisacodyl 10 mg Suppository 10 mg [place] X1 PRN (Reason: Constipation) Qty: 1 0RF gabapentin 300 mg Capsule 300 mg PO 2000 Qty: 1 0RF losartan [Cozaar] 100 mg tablet 100 mg PO DAILY Qty: 1 0RF tizanidine 2 mg capsule 2 mg PO QHS Qty: 1 0RF Continued atorvastatin 40 mg tablet 40 mg PO QHS ergocalciferol (vitamin D2) 1,250 mcg (50,000 unit) capsule 50,000 unit PO QMONTH venlafaxine [Effexor XR] 75 mg capsule,extended release 24hr 75 mg PO DAILY No Action oxycodone-acetaminophen 5-325 mg tablet 2 tab PO Q6H PRN (Reason: pain) multivitamin Tablet 1 tab PO DAILY valsartan 160 mg tablet 160 mg PO DAILY Referrals / Follow Up: Rosie, Surgeon [Other] - 06/09/23 9:00 am ([phone] Lawson Environmental Health Nurse for all questions or appt changes ) Donte Woodson [employer], [employer] [Primary Care Provider] - Disposition Disposition (needs filled in before D/C Order can be placed): Retirement Facility
--- NOTE | 2023-05-26 15:10 | DS.PCM_ITS ---
Providers Date of Admission: 05/15/23 Date of Discharge: 05/27/23 Primary Care Physician: Donte Woodson, HEALTH DIRECTOR-C Dr. Kwan Lai Reason For Visit: Lumbar laminectomy and fusion Diagnosis Discharge Diagnosis (1) Debility: Status: Acute Code(s): R53.81 - Other malaise (2) Hx of decompressive lumbar laminectomy: Status: Acute Code(s): Z98.890 - Other specified postprocedural states Plan: At the [facility] on 05/09/[address] J Luis Leon (3) Acute blood loss anemia: Status: Acute Code(s): D62 - Acute posthemorrhagic anemia (4) Radicular pain of both lower extremities: Status: Chronic Code(s): M54.10 - Radiculopathy, site unspecified Plan: Anterior thighs and Left lateral knee. (5) Essential hypertension: Status: Chronic Code(s): I10 - Essential (primary) hypertension (6) Mixed hyperlipidemia: Status: Chronic Code(s): E78.2 - Mixed hyperlipidemia (7) Anxiety: Status: Chronic Code(s): F41.9 - Anxiety disorder, unspecified (8) Vitamin D deficiency: Status: Chronic Code(s): E55.9 - Vitamin D deficiency, unspecified (9) Smokes cigarettes: Status: Chronic Code(s): F17.210 - Nicotine dependence, cigarettes, uncomplicated Plan Transfer to TCU tomorrow for additional therapy prior to returning home. She lives alone. Medications at Discharge Home Medications atorvastatin 40 mg tablet 40 mg PO QHS cholesterol 05/15/23 ergocalciferol (vitamin D2) 1,250 mcg (50,000 unit) capsule 50,000 unit PO QMONTH supplement 05/15/23 multivitamin 1 tab PO DAILY supplement 05/15/23 venlafaxine 75 mg capsule,extended release 24 hr (Effexor XR) 75 mg PO DAILY depression 05/15/23 bisacodyl 10 mg rectal suppository 10 mg FL X1 PRN Constipation #1 ea 05/26/23 gabapentin 300 mg capsule 300 mg PO 2000 #1 cap 05/26/23 hydrocodone-acetaminophen 5-325mg 5mg-325mg 1 - 2 tab PO Q6H PRN PRN Pain Score 4-10 1 day #1 TAB 05/26/23 hydrocodone-acetaminophen 5-325mg 5mg-325mg 2 tab PO QHS 1 day #2 tabs 05/26/23 losartan 100 mg tablet (Cozaar) 100 mg PO DAILY #1 TAB 05/26/23 magnesium hydroxide 400 mg/5 mL oral suspension 30 ml PO X1 PRN Constipation #30 mL 05/26/23 sennosides 8.6 mg-docusate sodium 50 mg tablet (Stool Softener-Stimulant Laxative) 2 tab PO BID #1 TAB 05/26/23 tizanidine 2 mg capsule 2 mg PO QHS #1 cap 05/26/23 Hospital Course Operations - (Lumbar laminectomy/fusion at the [facility] on 05/09/[address] J Luis Leon ) Procedures None Summary of Care Provided Minutes Spent on Discharge: 40 Hospital Course: FILIBERTO CORMIER, is a 68 F with PMH of HTN, HLD, Anxiety, chronic back pain with radiculopathy to the BL extremities, vitamin D deficiency and tobacco dependence who underwent a lumbar laminectomy and fusion at the [facility] by Dr. J Luis Leon on 05/09/2023. There were no post surgical complications and she was transferred to the acute inpt rehab unit at [facility] on 05/15/23 for 3 hours of therapy daily. She lives alone. Lab at admission revealed a hemoglobin of 9.4 but a recheck on 05/22/2023 showed that it had increased to 11.1. CMP was unremarkable. At the time of DC from acute rehab Filiberto did not feel ready/safe to go home by herself and she has no one to help her at home. She is currently supervision/set up for eating, grooming, upper body dressing, lower body dressing, toileting and toilet transfer. She is standby assist for tub/shower transfer and needs minimal assistance with bathing. She is standby assist for ambulation with a front wheeled walker and she walked 150 feet x 2 on 05/26/2023. She is able to do 5 sit to stands using her upper extremities in 30 seconds. She completed the tug test and 25.62 seconds with a front wheeled walker at standby assist. She is able to ascend/descend 8 steps with 2 handrails at contact-guard assist using a step to pattern. Physical Exam Const alert, oriented x3 and no apparent distress Constitutional Narrative: Lying in bed at the time of my exam she appeared comfortable. She does tell me that she slept better last night with the addition of Neurontin to her drug regimen to control the anterior thigh pain. The anterior thigh pain is better but she still having some left lateral knee nerve pain. General Appearance: cooperative Resp clear to auscultation bilaterally Cardio regular rate, regular rhythm, no murmurs, no rub and no gallops Cardio Narrative: No ectopy GI normal to inspection, nondistended, normoactive bowel sounds, soft to palpation, non-tender and non-distended Extremity no calf tenderness General Extremity: Negative for edema Skin Rashes: no rashes Wound Narrative: The lumbar incision is intact and pb are still present. There is no dehiscence, no rubio-incisional erythema, no rubio-incisional edema and no discharge. Neuro CN's II-XII intact bilaterally and no focal motor deficits Speech: speech normal Psych affect normal Appearance: appropriate Attitude: No agitated Weight / BMI Weight Weight: 172 lb 2.896 oz Body Mass Index (BMI) 25.4 ABG / Lab / Microbiology Data 05/22/23 05:47 05/16/23 05:12 Microbiology: Microbiology 05/25/23 13:30 Nasal Secretion SARS-CoV-2 Antigen (Rapid) - Final D/C Instructions Please Follow Up With: J Luis Leon MD Meaningful Use Info Meaningful Use Diagnoses (Choose all that apply): None applicable Discharge Plan Admission Admit Date/Time: 05/15/23 14:37 Primary Reason for Your Visit: Physical debility due to spinal stenosis with laminectomy/fusion LS spine Attending Provider: Ava Castle Primary Care Provider: Donte Woodson HEALTH DIRECTOR Consulting Providers: Kwan Lai Instructions Patient Instructions: Laminectomy, Laminectomy Dc, Caring for Your Incision Additional Instructions / Restrictions: 1. No bending, Lifting or twisting. 2. Do not sit or lie in bed for more than 1 hour during the day without getting up and taking a walk.......this will help with stiffness/pain and will also help to prevent blood clots in the legs. 3. It is going to take at least a few months before you are back to your baseline. You will fatigue more easily and will need more sleep than normal to allow your body to heal. 4. I have started you on Gabapentin at night to help with the nerve pain in your anterior thighs. I am hoping as the swelling decreases the nerve pain will go away. Discharge Orders/Prescriptions Prescriptions: New hydrocodone-acetaminophen 5-325 mg Tablet 1 - 2 tab PO Q6H PRN PRN (Reason: Pain Score 4-10) 1 Days Qty: 1 0RF Rx Instructions: 5 mg for pain 4-6 and 10 mg for pain 7 and above. hydrocodone-acetaminophen 5-325 mg Tablet 2 tab PO QHS 1 Days Qty: 2 0RF sennosides-docusate sodium [Stool Softener-Stimulant Laxat] 8.6-50 mg Tablet 2 tab PO BID Qty: 1 0RF magnesium hydroxide 400 mg/5 mL Suspension 30 ml PO X1 PRN (Reason: Constipation) Qty: 30 0RF bisacodyl 10 mg Suppository 10 mg FL X1 PRN (Reason: Constipation) Qty: 1 0RF gabapentin 300 mg Capsule 300 mg PO 1999 Qty: 1 0RF losartan [Cozaar] 100 mg tablet 100 mg PO DAILY Qty: 1 0RF tizanidine 2 mg capsule 2 mg PO QHS Qty: 1 0RF Continued atorvastatin 40 mg tablet 40 mg PO QHS ergocalciferol (vitamin D2) 1,250 mcg (50,000 unit) capsule 50,000 unit PO QMONTH venlafaxine [Effexor XR] 75 mg capsule,extended release 24hr 75 mg PO DAILY Discontinued oxycodone-acetaminophen 5-325 mg tablet 2 tab PO Q6H PRN (Reason: pain) valsartan 160 mg tablet 160 mg PO DAILY No Action multivitamin Tablet 1 tab PO DAILY Referrals / Follow Up: Rosie, Surgeon [Other] - 06/09/23 9:00 am ([phone] Lawson Design Consultant for all questions or appt changes ) Donte Woodson HEALTH DIRECTOR, HEALTH DIRECTOR-C [Primary Care Provider] - Disposition Disposition (needs filled in before D/C Order can be placed): Jail Facility Charges/Coding Visit Charges Inpatient E&M: 27748 Disch Hosp >30min
[2023-05-26 20:13] VITALS: BP 143/88; PULSE 65; RESP 16; TEMP 37.1; O2SAT 100
[2023-05-26] MEDS: Gabapentin 300 MG Capsule PO (20:29)
[2023-05-26] MEDS: Atorvastatin Calcium 40 MG Tablet PO (21:29)
[2023-05-27 07:44] VITALS: BP 162/94; PULSE 63; RESP 16; TEMP 36.4; O2SAT 98
[2023-05-27] MEDS: Losartan Potassium 25 MG Tablet 75 MG PO (08:43)
[2023-05-27] MEDS: Venlafaxine XR 75 MG Capsule PO (08:44)
== END 2023-05-27 10:45 | disposition skilled nursing facility (03) | DRG 560 ==
PROVIDERS: Internal Medicine; Admitting Provider Internal Medicine; PCP Nurse Practitioner Family; Visit Provider Internal Medicine
DX: Z47.89 Encounter for other orthopedic aftercare (principal); D62 Acute posthemorrhagic anemia; I10 Essential (primary) hypertension; E55.9 Vitamin D deficiency, unspecified; F17.210 Nicotine dependence, cigarettes, uncomplicated; E78.2 Mixed hyperlipidemia; M41.9 Scoliosis, unspecified; F41.9 Anxiety disorder, unspecified; Z86.16 Personal history of COVID-19; Z98.1 Arthrodesis status; Z79.899 Other long term (current) drug therapy; G89.29 Other chronic pain
CPT/HCPCS: 36415; 80053; 83735; 84100; 85014; 85018; 85025; 87811; 94668; 97110; 97116; 97162; 97166; 97530; 97535; 97802; 99406

== ENCOUNTER 2023-05-27 10:50 | Inpatient (IN) | payer MEDICARE, OTHER, SELFPAY ==
[2023-05-27 11:12] VITALS: BP 149/81; PULSE 66; PULSE 78; RESP 18; RESP 21; TEMP 35.9; O2SAT 94; O2SAT 97; BMI 25.4
--- OUTSIDE RECORDS SUMMARY | 2023-05-27 11:17 | XMS RPT_ITS | CCD ---
Author Name Unknown Address [address] [place] [address] Organization [facility] Care Team Providers Care Broadcast Field Supervisor Name Role Phone REFERRING, MONTSE MANRIQUEZ Unavailable Unavailable NILECANDY Unavailable Unavailable NILE, CANDY Unavailable Unavailable NILE ELECTRIC TRUCK CRANE OPERATOR - PICKLE WATER PUMP OPERATOR, CANDY [facility] ELECTRIC TRUCK CRANE OPERATOR - PICKLE WATER PUMP OPERATOR, CANDY Radford Attending U navailable NILE ELECTRIC TRUCK CRANE OPERATOR - PICKLE WATER PUMP OPERATOR, CANDY Radford Primary Care U navailable NILE ELECTRIC TRUCK CRANE OPERATOR - PICKLE WATER PUMP OPERATOR, CANDY Radford Attending U navailable NILE ELECTRIC TRUCK CRANE OPERATOR - PICKLE WATER PUMP OPERATOR, CANDY Radford Primary Care U navailable NILE ELECTRIC TRUCK CRANE OPERATOR - PICKLE WATER PUMP OPERATOR, CANDY Radford Attending U navailable NILE ELECTRIC TRUCK CRANE OPERATOR - PICKLE WATER PUMP OPERATOR, CANDY Radford Primary Care U navailable NILE ELECTRIC TRUCK CRANE OPERATOR - PICKLE WATER PUMP OPERATOR, CANDY Radford Attending U navailable NILE ELECTRIC TRUCK CRANE OPERATOR - PICKLE WATER PUMP OPERATOR, CANDY Radford Primary Care U navailable FAHAD MENDEZ, DR WEBBER Attending Unavailabl e NILE ELECTRIC TRUCK CRANE OPERATOR - PICKLE WATER PUMP OPERATOR, CANDY Radford Primary Care U navailable NILE ELECTRIC TRUCK CRANE OPERATOR - PICKLE WATER PUMP OPERATOR, CANDY Radford Attending U navailable NILE ELECTRIC TRUCK CRANE OPERATOR - PICKLE WATER PUMP OPERATOR, CANDY Radford Primary Care U navailable Allergies Allergy Classification Reported Allergen(s) Allergy Type Date of Onset Reaction(s) Facility (4 sources) Azithromycin; Translations: [azithromycin] Drug Allergy Headache (finding), Dizziness (finding) [facility] Work Phone: (4 sources) Cephalexin; Translations: [cephalexin] Drug Allergy Diarrhea (finding) [facility] Work Phone: Medications Current Medications Medication Drug Class(es) Dates Sig (Normalized) Sig (Original) atorvastatin 40 mg oral tablet (4 sources) HMG-CoA Reductase Inhibitor Start: 11-22-2022 atorvastatin 40 mg oral tablet Dose : 40 mg = 1 tab(s), Oral, qDay, # 90 tab(s), 1 Refill(s), Pharmacy: [id number], Hyperlipidemia LDL goal Start Date: 11/22/22 Status: Ordered Problems Active Problems Problem Classification Problem Date Documented Da te Episodic/Chronic Anxiety disorders (5 sources) Generalized anxiety disorder; Translations: [Generalized anxiety disorder] 10-20-2020 Chronic Disorders of lipid metabolism (9 sources) Hyperlipidemia; Translations: [Hypertriglyceridemia] 04-23-2019 Chronic Essential hypertension (5 sources) Hypertensive disorder; Translations: [Essential hypertension] 04-23-2019 Chronic Fluid and electrolyte disorders (1 source) Hyperkalemia 03-16-2023 Episodic Heart valve disorders (8 sources) Mitral valve regurgitation; Translations: [Tricuspid valve regurgitation] 04-22-2019 Chronic Past or Other Problems Problem Classification Problem Date Documented Da te Episodic/Chronic Unclassified (1 source) MA MAMMOGRAM SCREENING BILATERAL W/CARLOS Onset: 12-08-2016 Results Test Name Value Interpretation Reference Range Facil ity Encounters Encounter Date Encounter Type Care Provider Facility Start: 03-21-2023 End: 03-22-2023 ambulatory CANDY DOWD ELECTRIC TRUCK CRANE OPERATOR - PICKLE WATER PUMP OPERATOR Facility:B Start: 03-21-2023 End: 03-21-2023 Patient encounter procedure CANDY DOWD ELECTRIC TRUCK CRANE OPERATOR - PICKLE WATER PUMP OPERATOR [facility] Start: 03-13-2023 End: 03-14-2023 ambulatory CANDY DOWD ELECTRIC TRUCK CRANE OPERATOR - PICKLE WATER PUMP OPERATOR Facility:[facility] Start: 11-15-2022 End: 11-16-2022 ambulatory CANDY DOWD ELECTRIC TRUCK CRANE OPERATOR - PICKLE WATER PUMP OPERATOR Facility:[facility] Start: 11-14-2022 End: 11-14-[address] LAWANDA VÁSQUEZ MD Facility:[facility] Start: 06-28-2022 End: 06-29-2022 ambulatory CANDY DOWD ELECTRIC TRUCK CRANE OPERATOR - PICKLE WATER PUMP OPERATOR Facility:[facility] Start: 06-28-2022 End: 06-28-2022 Patient encounter procedure CANDY DOWD ELECTRIC TRUCK CRANE OPERATOR - PICKLE WATER PUMP OPERATOR [facility] Start: 05-04-2022 End: 05-05-2022 ambulatory CANDY Radford NILE ELECTRIC TRUCK CRANE OPERATOR - PICKLE WATER PUMP OPERATOR Facility:B Start: 05-04-2022 End: 05-04-2022 Patient encounter procedure CANDY DOWD ELECTRIC TRUCK CRANE OPERATOR - PICKLE WATER PUMP OPERATOR [facility] Start: 04-22-2021 End: 04-22-2021 Patient encounter procedure CANDY DOWD ELECTRIC TRUCK CRANE OPERATOR - PICKLE WATER PUMP OPERATOR [facility] Start: 12-08-2016 End: 12-09-2016 Ambulatory PHY WO ID REFERRING Facility:[facility] Procedures Date Procedure Procedure Detail Performing Clinician Start: 05-02-2017 Bone density scan SAI GEMMA DOWD ELECTRIC TRUCK CRANE OPERATOR - PICKLE WATER PUMP OPERATOR Start: 06-05-2011 Colonoscopy CANYD TURNER ELECTRIC TRUCK CRANE OPERATOR - PICKLE WATER PUMP OPERATOR Immunizations Immunization Date Immunization Notes Care Provider Fa cility 03-06-2023 influenza, high dose seasonal, preservative-free; Translations: [Fluad Quadrivalent PF ] CANDY DOWD ELECTRIC TRUCK CRANE OPERATOR - PICKLE WATER PUMP OPERATOR [facility] 03-29-2022 influenza, high dose seasonal, preservative-free CANDY DOWD ELECTRIC TRUCK CRANE OPERATOR - PICKLE WATER PUMP OPERATOR [facility] 05-11-2021 influenza, high dose seasonal, preservative-free; Translations: [Fluad Quadrivalent PF ] CANDY DOWD ELECTRIC TRUCK CRANE OPERATOR - PICKLE WATER PUMP OPERATOR [facility] 04-08-2021 SARS-CoV-2 mRNA (tozinameran) vaccine CANDY DOWD ELECTRIC TRUCK CRANE OPERATOR - PICKLE WATER PUMP OPERATOR [facility] Payers Date Payer Category Payer Medicare [id number] 2022 Unknown [id number] 2004 Unknown [id number] 1953 Unknown [id number] 2.16.8 [id number] 1953 Unknown [id number] 2.16.8 [id number] 1953 Unknown [id number] 2.16.8 [id number] 1953 Unknown [id number] 2.16.8 [id number] 1953 Unknown [id number] 2.16.8 [id number] 1953 Unknown [id number] 2.16.8 [id number] Social History Date Type Detail Facility Start: 04-23-2019 Heavy tobacco smoker (f inding) [facility] Evaluation + Plan note Note Date & Type Note Facility Evaluation + Plan note Future Appointments Appointment Date:05/11/2021 09:00:00 AM Scheduled Provider:CANDY DOWD APRN, CNP Location:[facility] Appointment Type:PC OV Follow Up [facility] Evaluation + Plan note Laboratory Note Date & Type Note Facility Evaluation + Plan note Future Appointments Appointment Date:05/12/2022 10:20:00 AM Scheduled Provider:CANDY DOWD APRN, CNP Location:[facility] Appointment Type:PC OV Follow Up Future Scheduled TestsMicroalbumin Level Urine 02/09/22 [facility] Evaluation + Plan note Laboratory Note Date & Type Note Facility Evaluation + Plan note Future Appointments Appointment Date:11/10/2022 10:20:00 AM Scheduled Provider:CANDY DOWD APRN, CNP Location:[facility] Appointment Type:PC OV Follow Up Future Scheduled TestsLipid Profile 11/10/22Microalbumin Level Urine 02/09/22Microalbumin Level Urine 11/10/22Vitamin D Level 11/10/22Complete Metabolic Panel 11/10/22 [facility] Evaluation + Plan note Laboratory Note Date & Type Note Facility Evaluation + Plan note Future Appointments Appointment Date:05/09/2023 09:40:00 AM Scheduled Provider:CANDY DOWD APRN, CNP Location:[facility] Appointment Type:PC OV Follow Up Future Scheduled TestsComplete Blood Count 05/24/23Lipid Profile 05/24/23Albumin/Creatinine Ratio, Random Urine 05/24/23Vitamin D Level 05/24/23Complete Metabolic Panel 05/24/23 [facility] Hospital course Narrative Note Date & Type Note Facility Hospital course Narrative No data available for this section [facility] Hospital Discharge instructions Note Date & Type Note Facility Hospital Discharge instructions No data available for this section [facility] Progress note Note Date & Type Note Facility Progress note No data available for this section [facility] Summary Purpose Family History No Family History Records Found No data available for this section No Family History Records Found Advance Directives No Advanced Directives Records FoundNo Advanced Directives Records Found Additional Source Comments INFORMATION SOURCE (unrecogn ized section and content) DATE CREATED AUTHOR AUTHOR'S ORGANIZ ATION 04/06/2023 [facility] ([place]) Care Team (unrecognized sect ion and content) Care Team Personnel Name: CANDY DOWD APRN, CNP Position: P4 Advanced Practice Nurse Member Role: Primary Care Physician Address: Address: [address] [place] [address] Care Team Related Persons Name: NIDIA LEACH Care Team Personnel Name: CANDY DOWD APRN, CNP Position: P4 Advanced Practice Nurse Member Role: Primary Care Physician Address: Address: [address] [place] [address] Care Team Related Persons Name: NIDIA LEACH Patient Care team informatio n (unrecognized section and content) Care Team Personnel Name: CANDY DOWD APRN - WALDO Position: P4 Advanced Recycle Driver Member Role: Primary Care Physician Address: Address: [address] [place] [address]- Care Team Related Persons Name: NIDIA LEACH FOR RECORDS PERTAINING TO PATIENTS WHO ARE OR HAVE BEEN ENROLLED IN A CHEMICAL DEPENDENCY/SUBSTANCEABUSE PROGRAM, SOME INFORMATION MAY BE OMITTED. This clinical summary was aggregated from multiple sources. Caution should be exercised in using it in the provision of clinical care. This summary normalizes information from multiple sources, and as a consequence, information in this document may materially change the coding, format and clinical context of patient data. In addition, data may be omitted in some cases. CLINICAL DECISIONS SHOULD BE BASED ON THE PRIMARY CLINICAL RECORDS. [facility] [employer] [facility]. provides no warranty or guarantee of the accuracy or completeness of information in this document.
[2023-05-27] MEDS: HYDROcodone Bitartrate/Apap 5/325 Tablet PO ×3 (12:36→21:31)
[2023-05-27 14:46] VITALS: BMI 25.4
[2023-05-27 15:48] VITALS: BP 140/76; PULSE 69; RESP 19; TEMP 36.9; O2SAT 96
--- NOTE | 2023-05-27 21:21 | NURSING ---
Spoke w/ Dr. Kent via phone to update pt admitted to unit. He notes Dr. Castle will see tomorrow. No issues per nursing at this time. Will continue to monitor.
[2023-05-27] MEDS: Atorvastatin Calcium 40 MG Tablet PO (21:30)
[2023-05-27] MEDS: Gabapentin 300 MG Capsule PO (21:30)
[2023-05-27] MEDS: tiZANidine HCl 2 MG Tablet PO (21:30)
[2023-05-28 06:47] LABS: Absolute Lymphocyte Count 1.44 X10^3/uL (0.83-4.51); Absolute Neutrophil Count 3.2 X10^3/uL (2.0-7.7); Basophil# 0.04 X10^3/uL; Basophil% 0.7 % (0-1); Eosinophil# 0.26 X10^3/uL; Eosinophils% 4.7 % (0-5); Hematocrit 32.9 % (37-47); Lymphocyte # 1.44 X10^3/ul (0.83-4.51); Lymphocyte % 25.8 % (19-41); Mean Corp Hgb Conc 30.4 g/dL (32-36); Mean Corpuscular Hgb 28.8 pg (27.0-32.0); Mean Corpuscular Volume 94.8 fL (81-99); Monocyte# 0.67 X10^3/uL; NRBC Flagged by Analyzer 0 % (0-5); Neutrophil # 3.15 X10^3/uL (2.7-7.7); Neutrophil % 56.4 % (47-70); Platelet Count 430 K/mm3 (150-450); RBC Distribution Width CV 12.7 % (11.6-14.6); Red Blood Count 3.47 M/mm3 (4.2-5.4); White Blood Count 5.6 K/mm3 (4.4-11.0)
[2023-05-28] MEDS: HYDROcodone Bitartrate/Apap 5/325 Tablet PO ×3 (07:00→20:54)
[2023-05-28 07:16] LABS: Anion Gap 3 (5-15); BUN 18 mg/dL (7-18); BUN/Creat Ratio 26.6 RATIO (10-20); Calcium,Total 9.2 mg/dL (8.5-10.1); Chloride 106 mmol/L (98-107); Creatinine, Serum 0.68 mg/dL (0.55-1.02); EST Glomerular Filtration Rate 92 mL/min (>60); Est Glom Filt Rate - Afr Amer 111 mL/min (>60); Estimated Creatinine Clearance 54.71 ml/min; Glucose 95 mg/dL (74-106); Potassium 4.3 mmol/L (3.5-5.1); Sodium Level 137 mmol/L (136-145)
[2023-05-28] MEDS: Venlafaxine XR 75 MG Capsule PO (09:47)
[2023-05-28] MEDS: Losartan Potassium 100 MG Tablet PO (09:47)
[2023-05-28] MEDS: Tuberculin,Purif.prot.deriv. 50 TU/ML Vial 0.100000000000000006 ML ID (09:52)
[2023-05-28 15:14] VITALS: BP 124/76; PULSE 72; RESP 16; TEMP 36.6; O2SAT 97
[2023-05-28] MEDS: Atorvastatin Calcium 40 MG Tablet PO (20:54)
[2023-05-28] MEDS: Gabapentin 300 MG Capsule PO (20:54)
[2023-05-28] MEDS: Senna/Docusate Sodium 1 Tablet 2 TABLET PO (20:54)
[2023-05-28] MEDS: tiZANidine HCl 2 MG Tablet PO (20:54)
[2023-05-29] MEDS: HYDROcodone Bitartrate/Apap 5/325 Tablet PO ×3 (06:43→19:27)
[2023-05-29] MEDS: Senna/Docusate Sodium 1 Tablet 2 TABLET PO ×2 (08:57→19:31)
[2023-05-29] MEDS: Venlafaxine XR 75 MG Capsule PO (08:57)
[2023-05-29] MEDS: Losartan Potassium 100 MG Tablet PO (08:57)
--- NOTE | 2023-05-29 10:07 | HP.PCM_ITS ---
HPI - General General Date of Admission: 05/27/23 Date of Service: 05/29/23 Chief Complaint: Debility secondary to lumbar laminectomy/fusion. HPI Narrative FILIBERTO CORMIER, is a 68 F with a PMH of hypertension, hyperlipidemia, anxiety, chronic back pain, vitamin D deficiency and tobacco dependence who is well known to me from recent admission to acute rehab. She was admitted to acute rehab following a lumbar laminectomy and fusion on 05/09/23 for spinal canal stenosis. She lives alone and has no one to help her. She did not feel ready to be discharged home when her days in acute rehab and she was transferred to transitional care for additional therapy to strengthen prior to returning to her home. All lab drawn 05/28/2023 was personally reviewed and is stable. [facility] Medical History Basal cell carcinoma COVID Endometriosis GERD (gastroesophageal reflux disease) IBS (irritable bowel syndrome) Migraine Scoliosis Smoker Home Medications atorvastatin 40 mg tablet 40 mg PO QHS cholesterol 05/15/23 [History Last Taken Unknown] ergocalciferol (vitamin D2) 1,250 mcg (50,000 unit) capsule 50,000 unit PO QMONTH supplement 05/15/23 [History Last Taken 05/09/23] multivitamin 1 tab PO DAILY supplement 05/15/23 [History Last Taken Unknown] venlafaxine 75 mg capsule,extended release 24 hr (Effexor XR) 75 mg PO DAILY depression 05/15/23 [History Last Taken Unknown] bisacodyl 10 mg rectal suppository 10 mg MD X1 PRN Constipation #1 ea 05/26/23 [Rx Last Taken Unknown] gabapentin 300 mg capsule 300 mg PO 2000 #1 cap 05/26/23 [Rx Last Taken Unknown] hydrocodone-acetaminophen 5-325mg 5mg-325mg 1 - 2 tab PO Q6H PRN PRN Pain Score 4-10 1 day #1 TAB 05/26/23 [Rx Last Taken Unknown] hydrocodone-acetaminophen 5-325mg 5mg-325mg 2 tab PO QHS 1 day #2 tabs 05/26/23 [Rx Last Taken Unknown] losartan 100 mg tablet (Cozaar) 100 mg PO DAILY #1 TAB 05/26/23 [Rx Last Taken Unknown] magnesium hydroxide 400 mg/5 mL oral suspension 30 ml PO X1 PRN Constipation #30 mL 05/26/23 [Rx Last Taken Unknown] sennosides 8.6 mg-docusate sodium 50 mg tablet (Stool Softener-Stimulant Laxative) 2 tab PO BID #1 TAB 05/26/23 [Rx Last Taken Unknown] tizanidine 2 mg capsule 2 mg PO QHS #1 cap 05/26/23 [Rx Last Taken Unknown] Allergy/AdvReac Type Severity Reaction Status Date / Time No Known Allergies Allergy Verified 05/15/23 14:47 Family History Father Heart failure Surgical History Cataract extraction status History of appendectomy History of tonsillectomy S/P ORIF (open reduction internal fixation) fracture Social History household members: none current occupational status: retired current occupation: Worked at [employer] pets and animals: Yes pets and animals: cat(s) and dog(s) Smoking Status: Current every day smoker tobacco type: cigarettes quit status: considering quitting alcohol intake: current alcohol intake frequency: 0-2 drinks per day Alcohol type: beer substance use type: does not use do you feel safe at home: Yes ROS Constitutional Constitutional: Reports weakness; Denies anorexia, change in weight, chills, fatigue, fever(s) or night sweats Eyes Eyes: Denies blurry vision, change in vision, eye pain or loss of vision ENT HEENT: Denies abnormal hearing, dysphagia, headache(s), hearing loss, nasal congestion or sore throat Cardiovascular Cardiovascular: Denies chest pain, dyspnea on exertion, edema, lightheadedness, orthopnea, palpitations, paroxysmal nocturnal dyspnea or syncope Respiratory/Chest Respiratory/Chest: Denies cough, dyspnea, shortness of breath at rest, shortness of breath with exertion or wheezing Gastrointestinal Gastrointestinal: Denies abdominal pain, constipation, diarrhea, dyspepsia, hematemesis, hematochezia, nausea or vomiting Genitourinary Genitourinary: Denies dysuria, hematuria, nocturia, urinary frequency, urinary hesitancy, urinary incontinence or urinary urgency Musculoskeletal Musculoskeletal: Reports back pain and extremity pain; Denies joint pain, joint swelling or neck pain Neurologic Neurologic: Denies confusion, disequilibrium, dizziness, focal weakness, headache(s), paresthesias, seizures or tremor(s) Psychiatric Psychiatric: Denies anxiety, depression, homicidal ideation or suicidal ideation Endocrine Endocrinology: Denies change in body appearance, polydipsia or polyuria Hematologic/Lymphatic Hematologic/Lymphatic: Denies easy bleeding, easy bruising or lymphadenopathy Allergic/Immunologic Allergic/Immunologic: Denies rhinitis, eczemia or asthma Vital Signs Vital Signs Vital Signs: 05/28/23 15:14 Temperature 97.9 F Temperature Source Temporal Pulse Rate 72 Respiratory Rate 16 Blood Pressure 124/76 H Blood Pressure Mean 92 Pulse Ox 97 Oxygen Delivery Method Room Air Weight Weight: 174 lb 8.992 oz Body Mass Index (BMI) 25.4 Physical Exam Const alert, oriented x3 and no apparent distress Constitutional Narrative: Making good eye contact, appropriate General Appearance: cooperative and comfortable HEENT moist oral mucous membranes Neck no lymphadenopathy, supple, no JVD and no carotid bruits Resp normal respiratory effort, no use of accessory muscles and clear to auscultation bilaterally Resp Narrative: Not tachypneic and no conversational dyspnea. Cardio regular rate, regular rhythm, S1 normal heart sound, S2 normal heart sound, no murmurs, no rub and no gallops GI normal to inspection, nondistended, normoactive bowel sounds and non-tender GI Narrative: No guarding with palpation. Extremity no clubbing, cyanosis or edema Extremity Narrative: Negative Lucian's and Vasiliy's signs Skin Skin Narrative: No rashes, no skin breakdown. The incision is intact with no dehiscence, no pu rulent discharge and no rubio-incisional erythema. No significant swelling around the incision. Neuro oriented x3, CN's II-XII intact bilaterally and no focal motor deficits Motor Exam: strength 5/5 throughout Psych affect normal Psych Narrative: Appropriate, making good eye contact. Able to stay on topic and focus. No flight of ideas. Does not appear anxious or depressed. Conversant and relating well to staff. Results Lab / Micro Data 05/28/23 06:20 05/28/23 06:20 Assessment & Plan Assessment/Plan (1) Debility: (2) Hx of decompressive lumbar laminectomy: (3) Radicular pain of both lower extremities: (4) Acute blood loss anemia: (5) Chronic back pain: QUALIFIERS: Back pain location: low back pain Back pain laterality: midline Sciatica presence: unspecified whether sciatica present Qualified Code(s): M54.50 - Low back pain, unspecified; G89.29 - Other chronic pain (6) Essential hypertension: (7) Mixed hyperlipidemia: (8) Anxiety: (9) Vitamin D deficiency: (10) Smokes cigarettes: PLAN: Plan PLAN PT for gait stability OT for ADL's Analgesics as needed Bowel protocol Fall precautions Assess for Anxiety/Depression GI prophylaxis-patient is asymptomatic with no complaints of heartburn, nausea, vomiting or abdominal pain. DVT prophylaxis with JAKOB hose and ambulation. No pharmacologic prophylaxis for DVT per surgery. Follow up with surgery and PCP following DC from [facility] Rehab 1. Antipsychotic no [] 2. Antianxiety no [] 3. Antidepressant yes for treatment of chronic depression 4. Hypnotic no [] 5. Anticoagulant no [] 6. Antibiotic no [] 7. Diuretic no [] 8. Opioid yes for treatment of chronic back pain and acute postoperative pain. 9. Antiplatelet no [] 10. Hypoglycemic agent no [] Charges/Coding Visit Charges Inpatient E&M: 44889 SNF Init L2
[2023-05-29] MEDS: Magnesium Hydroxide 30 ML UDC PO (12:58)
[2023-05-29] MEDS: Gabapentin 100 MG Capsule PO ×2 (13:36→17:38)
[2023-05-29 13:52] VITALS: BMI 25.4
[2023-05-29 15:23] VITALS: BP 122/75; PULSE 65; RESP 16; TEMP 36.2; O2SAT 95
--- NOTE | 2023-05-29 16:24 | NURSING ---
Patient found repeatedly self transferring throughout shift. Patient was educated on importance of call light for safety. Patient still non compliant. Order for Alarm placed
[2023-05-29] MEDS: tiZANidine HCl 2 MG Tablet PO (19:31)
[2023-05-29] MEDS: Gabapentin 300 MG Capsule PO (19:31)
[2023-05-29] MEDS: Atorvastatin Calcium 40 MG Tablet PO (19:33)
[2023-05-29 21:26] VITALS: PULSE 65
[2023-05-30] MEDS: HYDROcodone Bitartrate/Apap 5/325 Tablet PO ×4 (04:24→20:20)
[2023-05-30] MEDS: Gabapentin 100 MG Capsule PO ×2 (08:29→16:18)
[2023-05-30] MEDS: Losartan Potassium 100 MG Tablet PO (08:30)
[2023-05-30] MEDS: Venlafaxine XR 75 MG Capsule PO (08:30)
[2023-05-30] MEDS: Senna/Docusate Sodium 1 Tablet 2 TABLET PO ×2 (08:30→20:19)
[2023-05-30 08:32] VITALS: BP 101/68; PULSE 93
--- NOTE | 2023-05-30 10:39 | NURSING ---
MESSAGE LEFT FOR DR ROSAS'S OFFICE TO CALL BACK AND GIVE CLARIFICATION ON STAPLE D/C DATE. PT SURGERY WAS 05/09/23, F/U APPT WAS SCHED FOR 05/26 BUT RESCHED FOR 06/09 PT WAS IN REHAB 05/26.
[2023-05-30 14:00] VITALS: BMI 25.8
--- NOTE | 2023-05-30 14:17 | CASEMGMT ---
Social Work: SW Assessment completed. Pt admitted from where ROXANE has been working with pt prior. Plan: DC home alone with support from friend and/or sister in law. ROXANE will continue for to follow for DC planning. CHUY Narayan
[2023-05-30 16:00] VITALS: BP 110/62; PULSE 68; RESP 16; TEMP 36.7
[2023-05-30] MEDS: Atorvastatin Calcium 40 MG Tablet PO (20:19)
[2023-05-30] MEDS: Gabapentin 300 MG Capsule PO (20:20)
[2023-05-30] MEDS: tiZANidine HCl 2 MG Tablet PO (20:20)
[2023-05-31] MEDS: HYDROcodone Bitartrate/Apap 5/325 Tablet PO ×3 (05:55→18:45)
[2023-05-31] MEDS: Venlafaxine XR 75 MG Capsule PO (09:05)
[2023-05-31] MEDS: Losartan Potassium 100 MG Tablet PO (09:05)
[2023-05-31] MEDS: Gabapentin 100 MG Capsule PO ×2 (09:05→17:09)
[2023-05-31] MEDS: Senna/Docusate Sodium 1 Tablet 2 TABLET PO ×2 (09:05→22:28)
[2023-05-31 09:53] VITALS: BP 112/66; PULSE 68
[2023-05-31 14:30] VITALS: BP 131/70; PULSE 69; RESP 16; TEMP 35.7; O2SAT 95
--- NOTE | 2023-05-31 15:40 | NURSING ---
Manager Clinical Research Note; Activity Asset: Deisi Mayfield is independent in her choice of daily activities. She welcomes visits from the instructor adjunct pharmacy technician and therapy dog when available. She will watch tv, read and enjoys all kinds of word puzzles and sudoku. Friends will come and visit and bring her items she may need. Staff will continue to remind her of daily activities and respect her right to say no.
[2023-05-31] MEDS: COVID VAC 23-24(12UP)(ANDU)/PF 50 MCG/0.5 ML SYRINGE IM (15:59)
--- NOTE | 2023-05-31 16:11 | PCM.PN.DRR ---
TCU RX Drug Regimen Review Subjective/Objective Subjective/Objective: Subjective: TCU Admission. 68 YOF admitted to acute rehab following a lumbar laminectomy and fusion on 05/09/23 for spinal canal stenosis. Admitted to TCU with debility for strengthening and rehabilitation. Objective: Allergies No Known Allergies Allergy (Verified 05/15/23 14:47) Current Medications Generic Name Dose Route Start Last Admin Trade Name Freq PRN Reason Stop Dose Admin Hydrocodone Bitart/Acetaminophen 2 tablet 05/27/23 22:00 05/30/23 20:20 Hydrocodone Bitartrate/Apap 5/325 Tablet PO 2 tablet HS JOEY Administration Hydrocodone Bitart/Acetaminophen 0 tablet 05/31/23 15:15 Hydrocodone Bitartrate/Apap 5/325 Tablet PO Q6H PRN PRN Pain Score 4-10 Atorvastatin Calcium 40 mg 05/27/23 22:00 05/30/23 20:19 Atorvastatin Calcium 40 Mg Tablet PO 40 mg QHS JOEY Administration Bisacodyl 10 mg 05/27/23 11:16 Bisacodyl 10 Mg Suppository RC DAILY PRN Constipation Ergocalciferol 1.25 mg 06/26/23 10:00 Ergocalciferol 1.25 Mg (50, 000 Unit) Capsule PO QMONTH@1000 JOEY Gabapentin 300 mg 05/27/23 22:00 05/30/23 20:20 Gabapentin 300 Mg Capsule PO 300 mg HS JOEY Administration Gabapentin 100 mg 05/29/23 13:30 05/31/23 09:05 Gabapentin 100 Mg Capsule PO 100 mg BIDCM JOEY Administration Losartan Potassium 100 mg 05/28/23 10:00 05/31/23 09:05 Losartan Potassium 100 Mg Tablet PO 100 mg DAILY JOEY Administration Protocol Magnesium Hydroxide 30 ml 05/27/23 11:26 05/29/23 12:58 Magnesium Hydroxide 30 Ml Udc PO 30 ml DAILY PRN Administration CONSTIPATION Senna/Docusate Sodium 2 tablet 05/27/23 22:00 05/31/23 09:05 Senna/Docusate Sodium 1 Tablet PO 2 tablet BID JOEY Administration Tizanidine HCl 2 mg 05/27/23 22:00 05/30/23 20:20 Tizanidine Hcl 2 Mg Tablet PO 2 mg HS JOEY Administration Tuberculin PPD 0.1 ml 06/04/23 10:00 Tuberculin,Purif.Prot.Deriv. 50 Tu/Ml Vial ID 06/04/23 10:01 X1 ONE Venlafaxine HCl 75 mg 05/28/23 10:00 05/31/23 09:05 Venlafaxine Xr 75 Mg Capsule PO 75 mg DAILY JOEY Administration Problem List (Updated 05/26/23 @ 14:[address] Ava Castle, DO) Hx of decompressive lumbar laminectomy (Acute) Radicular pain of both lower extremities (Chronic) Smokes cigarettes (Chronic) Vitamin D deficiency (Chronic) Anxiety (Chronic) Acute blood loss anemia (Acute) Mixed hyperlipidemia (Chronic) Essential hypertension (Chronic) Chronic back pain (Chronic) Debility (Acute) Vital Signs Temp Pulse Resp BP Pulse Ox O2 Del Method 96.3 F L 69 16 131/70 H 95 Room Air 05/31/23 14:30 05/31/23 14:30 05/31/23 14:30 05/31/23 14:30 05/31/23 14:30 05/31/23 14:30 Oxygen Delivery Method Room Air Weight: 80.422 kg Body Mass Index (BMI) 25.8 Sodium 137 mmol/L (136-145) 05/28/23 06:20 Potassium 4.3 mmol/L (3.5-5.1) 05/28/23 06:20 Chloride 106 mmol/L (98-107) 05/28/23 06:20 Carbon Dioxide 28.0 mmol/L (21.0-32.0) 05/28/23 06:20 Anion Gap 3 (5-15) L 05/28/23 06:20 BUN 18 mg/dL (7-18) 05/28/23 06:20 Creatinine 0.68 mg/dL (0.55-1.02) 05/28/23 06:20 Est GFR (MDRD) Af Amer 111 mL/min (>60) 05/28/23 06:20 Est GFR (MDRD) Non-Af 92 mL/min (>60) 05/28/23 06:20 BUN/Creatinine Ratio 26.6 RATIO (10-20) H 05/28/23 06:20 Glucose 95 mg/dL (74-106) 05/28/23 06:20 Assessment/Plan: 1. Pain (chronic back pain): [place] 5/325mg 2T PO QHS and 1-2T PO Q6H PRN pain 4-10, tizanidine 2mg PO QHS. Resident has not had any PRN doses. Please continue to monitor for increased pain, PRN usage, constipation, respiratory depression, hypotension, dry mouth and drowsiness. 2. Bowel: senna/docusate 2T PO BID, MOM 30mL PO daily PRN constipation and bisacodyl 10mg RC daily PRN constipation. Resident has had 1 dose of MOM and no doses of bisacodyl. Last documented bowel movement 05/26. Please continue to monitor for constipation and PRN usage. 3. Hyperlipidemia: atorvastatin 40mg PO QHS. Please consider adding a lipid panel as there is no panel in the chart. Thanks. Please continue to monitor LFTs (last 05/16/23) and muscle pain. 4. Hypertension: losartan 100mg PO daily. Please continue to monitor BP (last 131/70), potassium (last 4.3mmol/L) and renal function. 5. Vitamin D deficiency: ergocalciferol 1.25mg PO monthly. Please consider ordering a vitamin D level as there is no level in the chart. Thanks. Assessment/Plan for indications treated with psychotropic medications: 1. Back pain: gabapentin 100mg PO BIDCM and 300mg QHS. GDR not appropriate as this medication is being used for pain. Please continue to monitor for confusion, falls/fractures (BEERs medication) and renal function. 2. Anxiety: venlafaxine XR 75mg PO daily. Please consider a GDR by 11/2023 if clinically appropriate. Thanks. Please continue to monitor for suicidal ideation (black box warning), falls/fractures (BEERs medication) and sodium (last 137mmol/L). Medical chart and medication regimen reviewed. The following medication irregularities or issues were identified: 1. Atorvastatin 40mg PO QHS. Please consider adding a lipid panel as there is no panel in the chart. Thanks. 2. Ergocalciferol 1.25mg PO monthly. Please consider ordering a vitamin D level as there is no level in the chart. Thanks. 3. Venlafaxine XR 75mg PO daily. Please consider a GDR by 11/2023 if clinically appropriate. Thanks. Date Date of Note:: 05/31/23
--- NOTE | 2023-05-31 16:20 | CASEMGMT ---
Addendum entered by Praveena Sales 06/02/23 09:30: Pt presented to this worker's office requesting a hospital bed for home. SW reviewed dx and cannot guarantee insurance will cover cost. Inquired about pt paying OOP. Pt agreed to cost at [email or web address] quoted $150 for 10-12 mos, rent to own. 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 SW sent referral to [email or web address] via [employer]. Original Note: Social Work SW and SW trainee spoke with pt about DC plans. Pt is adlib in room and unit. Pt agreeable to DC 06/07 and requesting FWW and 3-in-1 commode. Therapy recommending outpatient PT and offered [facility] to coordinate with [facility] since pt is unable to drive and no consistent support. Pt agreeable. SW sent referral to [email or web address] via [employer] for DME. SW faxed referral to [facility] for PT and to coordinate with [facility]. Plan: DC home alone 06/07, [facility] PT, FWW, 3-in-1 commode Praveena Sales, MARIUSZ VICKW
--- NOTE | 2023-05-31 16:27 | NURSING ---
Spoke with Yue from [facility] and they were calling back to state that it is okay to remove pb today. No further orders.
--- NOTE | 2023-05-31 20:31 | NURSING ---
43 pb removed from surgical incision, pt jacque. removal well. DSD applied for protection. Incision site is well approximated with no s/sx of infection noted.
[2023-05-31] MEDS: tiZANidine HCl 2 MG Tablet PO (22:27)
[2023-05-31] MEDS: Atorvastatin Calcium 40 MG Tablet PO (22:28)
[2023-05-31] MEDS: Gabapentin 300 MG Capsule PO (22:28)
[2023-06-01] MEDS: HYDROcodone Bitartrate/Apap 5/325 Tablet PO ×4 (04:18→20:57)
[2023-06-01] MEDS: Losartan Potassium 100 MG Tablet PO (09:16)
[2023-06-01] MEDS: Gabapentin 100 MG Capsule PO ×2 (09:16→16:33)
[2023-06-01] MEDS: Senna/Docusate Sodium 1 Tablet 2 TABLET PO ×2 (09:22→20:57)
[2023-06-01] MEDS: Venlafaxine XR 75 MG Capsule PO (09:22)
[2023-06-01 10:21] VITALS: BP 101/69; PULSE 73; RESP 15; TEMP 37
--- NOTE | 2023-06-01 11:49 | NURSING ---
Spoke with Amparo with [facility] and updated her on the d/c date for pt.
[2023-06-01 16:00] VITALS: BP 127/59; PULSE 76; RESP 17; TEMP 37; O2SAT 96
[2023-06-01] MEDS: Atorvastatin Calcium 40 MG Tablet PO (20:57)
[2023-06-01] MEDS: Gabapentin 300 MG Capsule PO (20:57)
[2023-06-01] MEDS: tiZANidine HCl 2 MG Tablet PO (20:57)
[2023-06-02] MEDS: HYDROcodone Bitartrate/Apap 5/325 Tablet PO ×3 (06:53→20:09)
[2023-06-02] MEDS: Venlafaxine XR 75 MG Capsule PO (08:43)
[2023-06-02] MEDS: Senna/Docusate Sodium 1 Tablet 2 TABLET PO ×2 (08:43→20:10)
[2023-06-02] MEDS: Losartan Potassium 100 MG Tablet PO (08:43)
[2023-06-02] MEDS: Gabapentin 100 MG Capsule PO ×2 (08:45→16:48)
[2023-06-02 08:46] VITALS: BP 113/69; PULSE 83
--- NOTE | 2023-06-02 10:34 | MDS.RN ---
Pain assessment for mds completed.
[2023-06-02 16:00] VITALS: BP 132/76; PULSE 69; RESP 16; TEMP 36.5; O2SAT 96
--- NOTE | 2023-06-02 17:12 | PCM.PN.BLA ---
Progress Note Continues to c/o R buttock pain. No radiation down the R leg. Able to sleep at night when she gets 300 mg of Gabapentin. She is very alert today and denies any adverse effects with the Gabapentin. Will increase the dose to 20 mg BID and continue the 300 mg at HS. Patient is unable to access bathroom safely and requires a 3-in-1 commode. Patient is unsafe to use a cane and requires a walker for ambulation in the home and the community. Patient requires a hospital bed d/t (choose corresponding phrase: needing frequent changes in position to alleviate pain, prevent ongoing pressure areas, assist in healing of current pressure areas, prevent aspiration or d/t respiratory condition) that is not feasible in an ordinary bed. Related to Dx Lumbar fusion and laminectomy.
--- NOTE | 2023-06-02 17:36 | CASEMGMT ---
Social Work BIMS () and PHQ-2 () completed for MDS assessment. Praveena Sales MSW [employer] MACHINE OPERATOR
[2023-06-02 20:00] VITALS: PULSE 92; RESP 16; O2SAT 99
[2023-06-02] MEDS: Atorvastatin Calcium 40 MG Tablet PO (20:09)
[2023-06-02] MEDS: Gabapentin 300 MG Capsule PO (20:09)
[2023-06-02] MEDS: tiZANidine HCl 2 MG Tablet PO (20:10)
[2023-06-03] MEDS: HYDROcodone Bitartrate/Apap 5/325 Tablet PO ×3 (07:19→20:07)
[2023-06-03] MEDS: Gabapentin 100 MG Capsule 200 MG PO ×2 (07:19→16:59)
[2023-06-03] MEDS: Venlafaxine XR 75 MG Capsule PO (08:23)
[2023-06-03] MEDS: Senna/Docusate Sodium 1 Tablet 2 TABLET PO (08:23)
[2023-06-03] MEDS: Losartan Potassium 100 MG Tablet PO (08:23)
[2023-06-03 08:42] VITALS: PULSE 93; RESP 16; O2SAT 99
[2023-06-03 16:00] VITALS: BP 118/68; PULSE 68; RESP 16; TEMP 36.2; O2SAT 95
[2023-06-03] MEDS: Gabapentin 300 MG Capsule PO (20:07)
[2023-06-03] MEDS: Atorvastatin Calcium 40 MG Tablet PO (20:08)
[2023-06-03] MEDS: tiZANidine HCl 2 MG Tablet PO (20:09)
[2023-06-04] MEDS: HYDROcodone Bitartrate/Apap 5/325 Tablet PO ×4 (04:04→21:48)
[2023-06-04 05:18] LABS: Absolute Lymphocyte Count 1.52 X10^3/uL (0.83-4.51); Absolute Neutrophil Count 2.5 X10^3/uL (2.0-7.7); Basophil# 0.02 X10^3/uL; Basophil% 0.4 % (0-1); Eosinophil# 0.34 X10^3/uL; Eosinophils% 6.8 % (0-5); Hematocrit 30.9 % (37-47); Hemoglobin 9.7 g/dL (12.0-15.0); Lymphocyte # 1.52 X10^3/ul (0.83-4.51); Lymphocyte % 30.3 % (19-41); Mean Corp Hgb Conc 31.4 g/dL (32-36); Mean Corpuscular Hgb 29.1 pg (27.0-32.0); Mean Corpuscular Volume 92.8 fL (81-99); Mean Platelet Vol. 9.2 fl (6.2-12.0); Monocyte# 0.63 X10^3/uL; Monocyte% 12.5 % (0-10); NRBC Flagged by Analyzer 0 % (0-5); Neutrophil # 2.48 X10^3/uL (2.7-7.7); Neutrophil % 49.4 % (47-70); Platelet Count 295 K/mm3 (150-450); RBC Distribution Width CV 12.5 % (11.6-14.6); RBC Distribution Width SD 42.5 fl (35.1-43.9); Red Blood Count 3.33 M/mm3 (4.2-5.4)
[2023-06-04 05:33] LABS: Anion Gap 3 (5-15); BUN 19 mg/dL (7-18); BUN/Creat Ratio 25.1 RATIO (10-20); Calcium,Total 8.4 mg/dL (8.5-10.1); Chloride 107 mmol/L (98-107); Creatinine, Serum 0.76 mg/dL (0.55-1.02); EST Glomerular Filtration Rate 80 mL/min (>60); Est Glom Filt Rate - Afr Amer 97 mL/min (>60); Estimated Creatinine Clearance 54.71 ml/min; Glucose 91 mg/dL (74-106); Potassium 4.7 mmol/L (3.5-5.1); Sodium Level 139 mmol/L (136-145)
[2023-06-04 08:30] VITALS: BP 126/69; PULSE 88; RESP 18; TEMP 36.3; O2SAT 98
[2023-06-04] MEDS: Gabapentin 100 MG Capsule 200 MG PO ×2 (08:42→16:08)
[2023-06-04] MEDS: Losartan Potassium 100 MG Tablet PO (08:42)
[2023-06-04] MEDS: Venlafaxine XR 75 MG Capsule PO (08:42)
[2023-06-04] MEDS: Tuberculin,Purif.prot.deriv. 50 TU/ML Vial 0.100000000000000006 ML ID (10:05)
[2023-06-04 14:24] VITALS: BP 122/77; PULSE 71; RESP 14; TEMP 36.8; O2SAT 98
--- NOTE | 2023-06-04 20:15 | NURSING ---
Pt calls for hs medication. Informed pt d/t the various medications ordered at that time, they cannot be administered until after 2100. Pt also asks this nurse if she can have someone come out to the home when she discharges on 06/07, to give her medications a couple times per day. Informed pt that private pay aides are not permitted to administer medications in the home and this is not a skilled service provided in the home. Suggested she may wish to have a family member, neighbor, or friend who is trustworthy to assist. Also suggested to keep a log of all medications being administered on a daily basis to prevent incorrect dosing. Educated on side effects of [place], Gabapentin, and Zanaflex. Further education needed.
[2023-06-04] MEDS: Atorvastatin Calcium 40 MG Tablet PO (21:47)
[2023-06-04] MEDS: tiZANidine HCl 2 MG Tablet PO (21:47)
[2023-06-04] MEDS: Gabapentin 300 MG Capsule PO (21:47)
[2023-06-05] MEDS: HYDROcodone Bitartrate/Apap 5/325 Tablet PO ×4 (03:48→21:41)
--- NOTE | 2023-06-05 05:04 | NURSING ---
Addendum entered by Praveena Sales 06/06/23 08:58: SW received RN voicemail. Pt is progressing well that OP therapy is most appropriate, per IDT. However, d/t to new concerns with medications, SW referred pt to [facility] for possible assistance. Original Note: Left vm for Praveena BETTS, to update on conversation this nurse held w/ pt last hs re: additional care at home. Pt may benefit from skilled home health for SN and PT initially upon dc from TCU.
[2023-06-05] MEDS: Senna/Docusate Sodium 1 Tablet 2 TABLET PO ×2 (09:12→21:42)
[2023-06-05] MEDS: Losartan Potassium 100 MG Tablet PO (09:12)
[2023-06-05] MEDS: Gabapentin 100 MG Capsule 200 MG PO ×2 (09:12→16:37)
[2023-06-05] MEDS: Venlafaxine XR 75 MG Capsule PO (09:12)
[2023-06-05 09:15] VITALS: BP 123/82; PULSE 87
[2023-06-05 14:38] VITALS: BP 115/70; PULSE 66; RESP 17; TEMP 35.9; O2SAT 97
[2023-06-05] MEDS: Magnesium Hydroxide 30 ML UDC PO (18:35)
[2023-06-05] MEDS: Gabapentin 300 MG Capsule PO (21:40)
[2023-06-05] MEDS: tiZANidine HCl 2 MG Tablet PO (21:42)
[2023-06-05] MEDS: Atorvastatin Calcium 40 MG Tablet PO (21:42)
[2023-06-06] MEDS: HYDROcodone Bitartrate/Apap 5/325 Tablet PO ×3 (05:41→18:49)
[2023-06-06 05:47] VITALS: PULSE 68; RESP 16; O2SAT 98
[2023-06-06] MEDS: Losartan Potassium 100 MG Tablet PO (08:14)
[2023-06-06] MEDS: Senna/Docusate Sodium 1 Tablet 2 TABLET PO ×2 (08:14→21:53)
[2023-06-06] MEDS: Venlafaxine XR 75 MG Capsule PO (08:14)
[2023-06-06] MEDS: Gabapentin 100 MG Capsule 200 MG PO ×2 (08:14→16:20)
[2023-06-06 10:00] VITALS: BP 127/78; PULSE 81; RESP 18; TEMP 36.6; O2SAT 95
--- NOTE | 2023-06-06 10:32 | NURSING ---
Cleat Feeder Note; MDS for 06/03/2023 Complete
[2023-06-06 11:13] VITALS: BMI 26.4
--- NOTE | 2023-06-06 13:44 | DCINST_ITS ---
Discharge Instructions Diet Discharge Diet: No restrictions Activity Discharge Activity: May Not Drive, May Shower (No tub baths until okayed by Dr. Leon. ), Use Walker and - (Maintain back precautions: No bending, lifting more than 5 pounds or twisting.) Weight Bearing Status: Full weight bearing Keep extremity elevated above heart level: Legs Dressing / Incision Call your doctor if your incision/area has: Sudden Increased Bleeding, Increased Pain/ Swelling, Increased Redness, Foul Smelling Discharge, Swelling at the incision site and - (Examine the incision daily or have someone else look at it daily. If there is any separation of the incision, rubio-incisional redness with increased warmth, purulent or foul-smelling discharge please call the surgeon and get advice on what to do. ) Call your doctor if you observe: Fever of 101 or Higher, Numbness or Tingling, Inability to urinate, Inability to have a bowel movement, Shortness of breath, Dizziness, Fainting spells, Chest pain, Increased palpitations (irregular heartbeat), Calf discomfort and Uncontrolled pain Suture Line Care: Avoid Pulling/Pushing and Avoid Pinching/Bending Cleanse incision/area with: Soap & Water Additional Dressing/Incision Instructions:: No dressing is necessary unless the incision is open and then apply a dry dressing. If your clothes irritate the incision then you may cover the incision with a dry dressing no pad it. Follow Up Care Please Follow Up With: Dr. Velez Test Results: Test results from this visit will be discussed in further detail at your follow- up appointment, if applicable. Pending Tests Upon Discharge: none Discharge Plan Admission Admit Date/Time: 05/27/23 10:50 Primary Reason for Your Visit: Debility secondary to lumbar canal stenosis/lumbar laminectomy/fusion Attending Provider: Larry Kent Chi Primary Care Provider: Donte Woodson COURT STENOGRAPHER Instructions Patient Instructions: Caring for Your Incision, Managing Post-Op Pain at Home Additional Instructions / Restrictions: 1. No bending, no lifting and no twisting. 2. Do not sit for longer than 1 hours without getting up to take a walk. It helps with stiffness and pain control. If you get too stiff the pain will increase and then you won't want to get up and walk. 3. I do not want to increase the daytime Gabapentin dose yet because it has only been a few days and you have gotten somewhat better. This drug can cause sleepiness, lightheadedness, dysequilibrium and a slowing of thought processes and I do not want you to fall and potentially injure your back. 4. No driving. Riding in a car will be painful so try and limit car rides to 30 minutes or less. 5. You have done very well in therapy and I suspect you will continue to do well. you will need ongoing home health or outpatient therapy after discharge. OP therapy is better. 6. It has been a pleasure meeting you and if you ever need our services again will be here for you. If you have any questions after discharge please do not hesitate to call me. Happy new year. OFFICE: [phone] CELL: [phone] Discharge Orders/Prescriptions Prescriptions: New gabapentin 100 mg Capsule See Rx Instructions .ROUTE .COMPLEX 14 Days Qty: 75 1RF Rx Instructions: 200 mg (2 caps) orally twice daily and 300 mg (3 caps) at HS cyclobenzaprine 5 mg tablet 5 mg PO TID PRN (Reason: muscle spasm) Qty: 30 0RF Rx Instructions: 1 tab up to 3 times daily as needed for muscle spasm. Continued atorvastatin 40 mg tablet 40 mg PO QHS ergocalciferol (vitamin D2) 1,250 mcg (50,000 unit) capsule 50,000 unit PO QMONTH multivitamin Tablet 1 tab PO DAILY venlafaxine [Effexor XR] 75 mg capsule,extended release 24hr 75 mg PO DAILY losartan [Cozaar] 100 mg tablet 100 mg PO DAILY Qty: 1 0RF sennosides-docusate sodium [Stool Softener-Stimulant Laxat] 8.6-50 mg Tablet 2 tab PO BID Qty: 120 0RF magnesium hydroxide 400 mg/5 mL Suspension 30 ml PO X1 PRN (Reason: Constipation) Qty: 1 0RF Rx Instructions: This is an over the counter drug and not covered by insurance Changed hydrocodone-acetaminophen 5-325 mg Tablet 2 tab PO Q6H PRN (Reason: pain) 7 Days Qty: 42 0RF Rx Instructions: Take 1 tab for pain 3-6 and 2 tabs for pain > 6. Discontinued hydrocodone-acetaminophen 5-325 mg Tablet 1 - 2 tab PO Q6H PRN PRN (Reason: Pain Score 4-10) 1 Days Qty: 1 0RF Rx Instructions: 5 mg for pain 4-6 and 10 mg for pain 7 and above. bisacodyl 10 mg Suppository 10 mg ND X1 PRN (Reason: Constipation) Qty: 1 0RF gabapentin 300 mg Capsule 300 mg PO 1999 Qty: 1 0RF tizanidine 2 mg capsule 2 mg PO QHS Qty: 1 0RF Referrals / Follow Up: J Luis Leon MD [Non-Staff] - 06/09/23 9:00 am Donte Woodson NP, COURT STENOGRAPHER-C [Primary Care Provider] - (Tran to make this appointment) Disposition Disposition (needs filled in before D/C Order can be placed): Home, Self Care
--- NOTE | 2023-06-06 17:25 | DS.PCM_ITS ---
Providers Date of Admission: 05/27/23 Date of Discharge: 06/07/23 Primary Care Physician: Donte Woodson, [employer] Reason For Visit: LAMINECTOMY Diagnosis Discharge Diagnosis (1) Debility: Status: Acute Code(s): R53.81 - Other malaise (2) Hx of decompressive lumbar laminectomy: Status: Acute Code(s): Z98.890 - Other specified postprocedural states (3) Radicular pain of both lower extremities: Status: Chronic Code(s): M54.10 - Radiculopathy, site unspecified (4) Acute blood loss anemia: Status: Acute Code(s): D62 - Acute posthemorrhagic anemia (5) Chronic back pain: Status: Inactive Code(s): M54.9 - Dorsalgia, unspecified; G89.29 - Other chronic pain Qualifiers: Back pain location: low back pain Back pain laterality: midline Sciatica presence: unspecified whether sciatica present Qualified Code(s): M54.50 - Low back pain, unspecified; G89.29 - Other chronic pain (6) Essential hypertension: Status: Inactive Code(s): I10 - Essential (primary) hypertension (7) Mixed hyperlipidemia: Status: Inactive Code(s): E78.2 - Mixed hyperlipidemia (8) Anxiety: Status: Inactive Code(s): F41.9 - Anxiety disorder, unspecified (9) Vitamin D deficiency: Status: Inactive Code(s): E55.9 - Vitamin D deficiency, unspecified (10) Smokes cigarettes: Status: Inactive Code(s): F17.210 - Nicotine dependence, cigarettes, uncomplicated Plan 1. Discharge home with outpatient therapy at [facility] 2. Patient is unsafe to use a cane and requires a front wheeled walker for amb ulation in the home and in the community. 3. Patient requires a hospital bed due to needing frequent changes in position to alleviate pain that is not feasible in an ordinary bed. Diagnosis is lumbar canal stenosis with radiculopathy. 4. Patient is unable to access her bathroom safely with a front wheeled walker and requires a 3 in 1 commode. 5. She will follow up with Dr. Leon and with Dr. Shaw post DC Medications at Discharge Home Medications atorvastatin 40 mg tablet 40 mg PO QHS cholesterol 05/15/23 ergocalciferol (vitamin D2) 1,250 mcg (50,000 unit) capsule 50,000 unit PO QMONTH supplement 05/15/23 multivitamin 1 tab PO DAILY supplement 05/15/23 venlafaxine 75 mg capsule,extended release 24 hr (Effexor XR) 75 mg PO DAILY depression 05/15/23 losartan 100 mg tablet (Cozaar) 100 mg PO DAILY #1 TAB 05/26/23 cyclobenzaprine 5 mg tablet 5 mg PO TID PRN muscle spasm #30 tabs 06/06/23 gabapentin 100 mg capsule See Rx Instructions .Route .COMPLEX 14 days #75 caps 06/06/23 hydrocodone-acetaminophen 5-325mg 5mg-325mg 2 tab PO Q6H PRN pain 7 days #42 ta bs 06/06/23 magnesium hydroxide 400 mg/5 mL oral suspension 30 ml PO X1 PRN Constipation #1 mL 06/06/23 sennosides 8.6 mg-docusate sodium 50 mg tablet (Stool Softener-Stimulant Laxative) 2 tab PO BID #120 tabs 06/06/23 Hospital Course Operations TURP (Lumbar laminectomy and fusion on 05/09/2023 at the [facility] by Dr. Leon) Procedures None Summary of Care Provided Minutes Spent on Discharge: 35 Hospital Course: FILIBERTO CORMIER, is a 68 F with PMH of HTN, HLD, Anxiety, chronic back pain with radiculopathy to the BL extremities, vitamin D deficiency and tobacco dependence who underwent a lumbar laminectomy and fusion at the [facility] by Dr. J Luis Leon on 05/09/2023. There were no post surgical complications and she was transferred to the acute inpt rehab unit at [facility] on 05/15/23 for 3 hours of therapy daily. She lives alone. She will not be able to drive post discharge. At the time of DC from acute rehab Filiberto did not feel ready/safe to go home by herself and she has no one to help her at home. She was transferred to the transitional care unit at [facility] on 05/27/2023 for additional therapy prior to returning home. Hina had recurrent R buttock pain while on TCU and it was impairing her sleep. She was started on 300 mg of gabapentin at bedtime and her sleep i mproved significantly. She continued to complain of right buttock pain and 100 mg twice daily of gabapentin was added to the drug regimen. After several days the pain was a little better but she still had pain. The dose was increased to 200 mg twice daily and 300 mg at bedtime. On this regimen she has mild pain in her right buttock but it is tolerable and certainly much improved. She is now h aving some drowsiness during the day and I did not feel it was prudent to increase the daytime dose to 300 mg. She was discharged on 200 mg twice daily and 300 mg at bedtime and will discuss with Dr. J Luis Leon at her next visit. She is using 5 mg of [place] 5/325mg 2-3 times a day and 2 tabs at HS at the time of DC. The hemoglobin at discharge is 9.7 and stable. It was 9.4 at admission to acute rehab. Kidney function is stable but the BUN/creatinine ratio is always elevated above 20 and she has been encouraged to increase her fluid intake on multiple occasions. At the time of discharge from TCU she is independent with eating and supervision/set up for grooming. She is independent with upper body dressing and lower body dressing and supervision/set up for bathing. She is in dependent with toilet transfer and toileting and standby assist for tub/shower transfer. She has ambulated up to 400 feet with a wheeled walker independently and ascended/descended 13 steps with 2 handrails at standby assist/contact-guard assist. she is going to have continued PT/OT at [place] [facility] an OP at [facility] and the has arranged for the hospital van to transport her since she lives alone and is unable to drive currently. She will follow-up with Dr. Calderon her PCP and also with Dr. J Luis Leon, orthopedic surgeon. Physical Exam Const alert, oriented x3 and no apparent distress Constitutional Narrative: Making good eye contact, appropriate General Appearance: cooperative and comfortable HEENT moist oral mucous membranes Neck no lymphadenopathy, supple, no JVD and no carotid bruits Resp normal respiratory effort, no use of accessory muscles and clear to auscultation bilaterally Resp Narrative: Not tachypneic and no conversational dyspnea. Cardio regular rate, regular rhythm, S1 normal heart sound, S2 normal heart sound, no murmurs, no rub and no gallops GI normal to inspection, nondistended, normoactive bowel sounds and non-tender GI Narrative: No guarding with palpation. Extremity no clubbing, cyanosis or edema Extremity Narrative: Negative Lucian's and Vasiliy's signs Skin Skin Narrative: No rashes, no skin breakdown. The incision is intact with no dehiscence, no purulent discharge and no rubio-incisional erythema. No significant swelling around the incision. Neuro oriented x3, CN's II-XII intact bilaterally and no focal motor deficits Motor Exam: strength 5/5 throughout Psych affect normal Psych Narrative: Appropriate, making good eye contact. Able to stay on topic and focus. No flight of ideas. Does not appear anxious or depressed. Conversant and relating well to staff. Weight / BMI Weight Weight: 181 lb 8 oz Body Mass Index (BMI) 26.4 ABG / Lab / Microbiology Data 06/04/23 04:46 06/04/23 04:46 Microbiology: Microbiology 06/06/23 05:34 Nasal Secretion SARS-CoV-2 Antigen (Rapid) - Final 05/31/23 12:42 Nasal Secretion SARS-CoV-2 Antigen (Rapid) - Final D/C Instructions Discharge Diet: No restrictions Weight Bearing Status: Full weight bearing Keep extremity elevated above heart level: Legs Call your doctor if your incision/area has: Sudden Increased Bleeding, Increased Pain/ Swelling, Increased Redness, Foul Smelling Discharge, Swelling at the incision site and - (Examine the incision daily or have someone else look at it daily. If there is any separation of the incision, rubio-incisional redness with increased warmth, purulent or foul-smelling discharge please call the surgeon and get advice on what to do. ) Call your doctor if you observe: Fever of 101 or Higher, Numbness or Tingling, Inability to urinate, Inability to have a bowel movement, Shortness of breath, Dizziness, Fainting spells, Chest pain, Increased palpitations (irregular heartbeat), Calf discomfort and Uncontrolled pain Suture Line Care: Avoid Pulling/Pushing and Avoid Pinching/Bending Cleanse incision/area with: Soap & Water Additional Dressing/Incision Instructions: No dressing is necessary unless the incision is open and then apply a dry dressing. If your clothes irritate the incision then you may cover the incision with a dry dressing no pad it. Pending Tests Upon Discharge: none Please Follow Up With: Dr. Velez Meaningful Use Info Meaningful Use Diagnoses (Choose all that apply): None applicable Discharge Plan Admission Admit Date/Time: 05/27/23 10:50 Primary Reason for Your Visit: Debility secondary to lumbar canal atif nosis/lumbar laminectomy/fusion Attending Provider: Larry Kent Chi Primary Care Provider: Donte Woodson [employer] Instructions Patient Instructions: Caring for Your Incision, Managing Post-Op Pain at Home Additional Instructions / Restrictions: 1. No bending, no lifting and no twisting. 2. Do not sit for longer than 1 hours without getting up to take a walk. It helps with stiffness and pain control. If you get too stiff the pain will increase and then you won't want to get up and walk. 3. I do not want to increase the daytime Gabapentin dose yet because it has only been a few days and you have gotten somewhat better. This drug can cause sleepiness, lightheadedness, dysequilibrium and a slowing of thought processes and I do not want you to fall and potentially injure your back. 4. No driving. Riding in a car will be painful so try and limit car rides to 30 minutes or less. 5. You have done very well in therapy and I suspect you will continue to do well. you will need ongoing home health or outpatient therapy after discharge. OP therapy is better. 6. It has been a pleasure meeting you and if you ever need our services again will be here for you. If you have any questions after discharge please do not hesitate to call me. Happy new year. OFFICE: [phone] CELL: [phone] Discharge Orders/Prescriptions Prescriptions: New gabapentin 100 mg Capsule See Rx Instructions .ROUTE .COMPLEX 14 Days Qty: 75 1RF Rx Instructions: 200 mg (2 caps) orally twice daily and 300 mg (3 caps) at HS cyclobenzaprine 5 mg tablet 5 mg PO TID PRN (Reason: muscle spasm) Qty: 30 0RF Rx Instructions: 1 tab up to 3 times daily as needed for muscle spasm. Continued atorvastatin 40 mg tablet 40 mg PO QHS ergocalciferol (vitamin D2) 1,250 mcg (50,000 unit) capsule 50,000 unit PO QMONTH multivitamin Tablet 1 tab PO DAILY venlafaxine [Effexor XR] 75 mg capsule,extended release 24hr 75 mg PO DAILY losartan [Cozaar] 100 mg tablet 100 mg PO DAILY Qty: 1 0RF sennosides-docusate sodium [Stool Softener-Stimulant Laxat] 8.6-50 mg Tablet 2 tab PO BID Qty: 120 0RF magnesium hydroxide 400 mg/5 mL Suspension 30 ml PO X1 PRN (Reason: Constipation) Qty: 1 0RF Rx Instructions: This is an over the counter drug and not covered by insurance Changed hydrocodone-acetaminophen 5-325 mg Tablet 2 tab PO Q6H PRN (Reason: pain) 7 Days Qty: 42 0RF Rx Instructions: Take 1 tab for pain 3-6 and 2 tabs for pain > 6. Discontinued hydrocodone-acetaminophen 5-325 mg Tablet 1 - 2 tab PO Q6H PRN PRN (Reason: Pain Score 4-10) 1 Days Qty: 1 0RF Rx Instructions: 5 mg for pain 4-6 and 10 mg for pain 7 and above. bisacodyl 10 mg Suppository 10 mg MO X1 PRN (Reason: Constipation) Qty: 1 0RF gabapentin 300 mg Capsule 300 mg PO 2000 Qty: 1 0RF tizanidine 2 mg capsule 2 mg PO QHS Qty: 1 0RF Referrals / Follow Up: J Luis Leon MD [Non-Staff] - 06/09/23 9:00 am Donte Woodson NP, [employer] [Primary Care Provider] - (Filiberto to make this appointment) Disposition Disposition (needs filled in before D/C Order can be placed): Home, Self Care Charges/Coding Visit Charges Inpatient E&M: 81324 SNF Disch >30 Min
[2023-06-06] MEDS: Gabapentin 300 MG Capsule PO (21:52)
[2023-06-06] MEDS: tiZANidine HCl 2 MG Tablet PO (21:53)
[2023-06-06] MEDS: Atorvastatin Calcium 40 MG Tablet PO (21:53)
[2023-06-07 06:50] VITALS: PULSE 61; RESP 18; O2SAT 96
[2023-06-07] MEDS: HYDROcodone Bitartrate/Apap 5/325 Tablet PO (07:02)
[2023-06-07] MEDS: Losartan Potassium 100 MG Tablet PO (09:11)
[2023-06-07] MEDS: Venlafaxine XR 75 MG Capsule PO (09:11)
[2023-06-07] MEDS: Gabapentin 100 MG Capsule 200 MG PO (09:13)
[2023-06-07 11:00] VITALS: BP 128/87; PULSE 87; RESP 18; TEMP 36.4; O2SAT 97
--- NOTE | 2023-06-08 11:20 | MDS.RN ---
Information for the mds was obtained from review of the clinical record, interview of resident, staff, and direct observation of resident's care.
== END 2023-06-07 11:00 | disposition home or self-care (01) | DRG 561 ==
PROVIDERS: Internal Medicine; Admitting Provider Family Medicine Geriatric Medicine; PCP Nurse Practitioner Family; Visit Provider Family Medicine Geriatric Medicine
DX: Z47.89 Encounter for other orthopedic aftercare (principal); E55.9 Vitamin D deficiency, unspecified; I10 Essential (primary) hypertension; F32.A Depression, unspecified; F17.210 Nicotine dependence, cigarettes, uncomplicated; E78.2 Mixed hyperlipidemia; M48.061 Spinal stenosis, lumbar region without neurogenic claudication; G89.29 Other chronic pain; Z98.1 Arthrodesis status; Z79.899 Other long term (current) drug therapy; Z23 Encounter for immunization
CPT/HCPCS: 36415; 80048; 85025; 87811; 90480; 97110; 97116; 97150; 97162; 97165; 97530; 97535; 97802; 91322

== ENCOUNTER 2023-06-12 12:04 | Observation (INO) | payer MEDICARE, OTHER, SELFPAY ==
[2023-06-12 12:04] VITALS: BP 164/115; PULSE 108; RESP 20; TEMP 35.9; O2SAT 94
--- NOTE | 2023-06-12 12:26 | EDS_ITS ---
HPI <SCOOTER Valdes - Last Filed: 06/12/23 18:04> History of Present Illness Chief Complaint: Diarrhea Narrative Narrative: Patient is a 68-year-old female with history of chronic back pain who recently had back surgery in early May 2023, she was at the TCU to receive PT/OT, and returned home on June 07, 2023. Patient has been doing well at home, she does live alone and gets around by a wheeled walker. Patient states that over the last 3 days she has been having multiple episodes of diarrhea and feeling of increased weakness. Patient denies any fever or chills. Patient denies any significant pain. Patient has not been on any antibiotics. She is currently on gabapentin and Wolf. She states that she has 3-4 loose bowel movements and then will have a solid bowel movement throughout the day. She called her PCP who referred her to the emergency department for fluids, stool cultures as well as some laboratory values. She does state to have some dark stool however this could be related to the Pepto-Bismol that she did try. She denies any sick contacts. PFSH <SCOOTER Valdes - Last Filed: 06/12/23 18:04> PFSH Medical History Basal cell carcinoma COVID Endometriosis GERD (gastroesophageal reflux disease) IBS (irritable bowel syndrome) Migraine Scoliosis Smoker Home Medications atorvastatin 40 mg tablet 40 mg PO QHS CHOLESTEROL 05/15/23 [History Last Taken Unknown] ergocalciferol (vitamin D2) 1,250 mcg (50,000 unit) capsule 50,000 unit PO QMONTH SUPPLEMENT 05/15/23 [History Last Taken 05/09/23] multivitamin 1 tab PO DAILY HEALTH MAINTENACE 05/15/23 [History Last Taken Unknown] venlafaxine 75 mg capsule,extended release 24 hr (Effexor XR) 75 mg PO DAILY DEPRESSION 05/15/23 [History Last Taken Unknown] losartan 100 mg tablet (Cozaar) 100 mg PO DAILY BLOOD PRESSURE #1 TAB 05/26/23 [Rx Last Taken Unknown] sennosides 8.6 mg-docusate sodium 50 mg tablet (Stool Softener-Stimulant Laxative) 2 tab PO BID STOOL SOFTENER #120 tabs 06/06/23 [Rx Last Taken Unknown] cyclobenzaprine 5 mg tablet 5 mg PO TID PRN MUSCLE SPASMS 06/12/23 [History Last Taken Unknown] gabapentin 100 mg capsule 200 mg PO BID NERVE PAIN 06/12/23 [History Last Taken Unknown] gabapentin 100 mg capsule 300 mg PO QHS NERVE PAIN 06/12/23 [History Last Taken Unknown] hydrocodone-acetaminophen 5-325mg 5mg-325mg 1 - 2 tab PO Q6H PRN PAIN 06/12/23 [History Last Taken Unknown] magnesium hydroxide 400 mg/5 mL oral suspension 30 ml PO X1 PRN CONSTIPATION 06/12/23 [History Last Taken Unknown] Allergy/AdvReac Type Severity Reaction Status Date / Time No Known Allergies Allergy Verified 06/12/23 12:04 Family History Father Heart failure Surgical History Cataract extraction status History of appendectomy History of tonsillectomy S/P ORIF (open reduction internal fixation) fracture Social History household members: none current occupational status: retired current occupation: Worked at [employer] pets and animals: Yes pets and animals: cat(s) and dog(s) Smoking Status: Current some day smoker tobacco type: cigarettes quit status: considering quitting alcohol intake: current alcohol intake frequency: 0-2 drinks per day Alcohol type: beer substance use type: does not use do you feel safe at home: Yes ROS <SCOOTER Valdes - Last Filed: 06/12/23 18:04> ROS ED ROS Narrative Constitutional: Negative for fever, chills, weight loss. Positive for weakness Eyes: Negative for vision loss, vision change, double vision ENT: Negative for any sore throat, ear pain, congestion Cardiovascular: Negative for any chest pain, tightness, palpitations Respiratory: Negative for any cough, sputum production, hemoptysis, dyspnea, dyspnea on exertion, orthopnea Gastrointestinal: Negative for any nausea, vomiting, constipation, blood in stool, blood in vomit. Positive for abdominal cramping, positive for diarrhea : Negative for any urinary frequency, dysuria, retention, blood in urine Muscle skeletal: Negative for any myalgias, arthralgias, neck pain, back pain Neurological: Negative for any headache, syncope, paresthesias, dizziness Skin: Negative for any rashes, lumps, itching, abrasions, lacerations Psychiatric: Negative for any depression, anxiety, stress, suicidal ideation, homicidal ideation Hematologic: Negative for any easy bruising, excessive bruising, easy bleeding Allergies: Negative for any eczema, hives, rash EXAM <SCOOTER Valdes - Last Filed: 06/12/23 18:04> Physical Exam Narrative Exam Narrative: Vital signs reviewed. HEET: Head normocephalic atraumatic, TMs clear bilaterally. Posterior pharynx is clear, moist mucous membranes. Nares clear bilaterally. Neck: Supple with no lymphadenopathy or tenderness. No signs of meningismus. Cardiac: Regular rate and rhythm no murmurs gallops or rubs, equal peripheral pulses bilaterally. Respiratory: Lungs clear to auscultation bilaterally. No chest tenderness. Abdomen: Soft, nontender, nondistended. No abdominal bruit or pulsatile masses. No hepatosplenomegaly. Patient has active bowel sounds in all quadrants. Extremities: No peripheral edema, no signs of gross trauma or deformity. Active full range of motion of all extremities. Neuro: Cranial nerves II through XII intact, no focal neurological deficits. Skin: Clean dry and intact with no rash, purpura, petechiae, vesicles or pustules. Backs/flank: No CVA tenderness, no midline spinal tenderness, no deformity. Psych: Normal mood and affect. No SI, HI or acute psychosis. Const Vital Signs: 06/12/23 12:04 Temperature 96.6 F L Temperature Source Temporal Pulse Rate 108 H Respiratory Rate 20 H Blood Pressure 164/115 H Blood Pressure Mean 131 Pulse Ox 94 Oxygen Delivery Method Room Air Positive well nourished and well developed General Appearance ED: well developed <Dr. Ash Geller DO - Last Filed: 06/12/23 15:35> Physical Exam Const Vital Signs: 06/12/23 12:04 Temperature 96.6 F L Temperature Source Temporal Pulse Rate 108 H Respiratory Rate 20 H Blood Pressure 164/115 H Blood Pressure Mean 131 Pulse Ox 94 Oxygen Delivery Method Room Air MDM <SCOOTER Valdes - Last Filed: 06/12/23 18:04> [facility] Lab Data Labs: Laboratory Results - last 24 hr 06/12/23 06/12/23 12:30 14:05 WBC 6.8 RBC 4.19 L Hgb 12.0 Hct 37.3 MCV 89.0 MCH 28.6 MCHC 32.2 RDW Std Deviation 41.6 RDW Coeff of Lizzy 12.9 Plt Count 404 MPV 9.0 Immature Gran % (Auto) 0.400 Neut % (Auto) 78.9 H Lymph % (Auto) 12.3 L Archuleta % (Auto) 7.7 Eos % (Auto) 0.4 Baso % (Auto) 0.3 Absolute Neuts (auto) 5.3 Absolute Lymphs (auto) 0.83 Nucleated RBC % 0 Sodium 138 Potassium 3.7 Chloride 108 H Carbon Dioxide 25.0 Anion Gap 5 BUN 24 H Creatinine 1.02 Est GFR (MDRD) Af Amer 69 Est GFR (MDRD) Non-Af 57 L BUN/Creatinine Ratio 23.5 H Glucose 117 H Calcium 9.6 Urine Color Yellow Urine Clarity Sl. Cloudy Urine pH 5.0 Ur Specific [place] 1.020 Urine Protein 100 H Urine Glucose (UA) Normal Urine Ketones 5 H Urine Occult Blood 10 H Urine Nitrite Negative Urine Bilirubin Negative Urine Urobilinogen 1 H Ur Leukocyte Esterase 100 H Urine RBC 0-5 SEEN Urine WBC 10-25 SEEN Ur Squamous Epith Cells 10-25 SEEN Urine Bacteria 2+ Hyaline Casts 0-5 SEEN Urine Mucus 0 SEEN Treatment and Re-Evaluation :: Patient appears generally well, patient appears nontoxic, vital signs are stable. Presenting to the emergency department for complaints of abdominal cramping, diarrhea, generalized weakness. Differential diagnosis includes stool pathogen, viral syndromes, constipation secondary to chronic narcotic use. Physical examination yielded no red flag signs. Abdomen was soft nontender. Patient will be given IV fluids, Zofran, as well as basic laboratory values. I will order stool studies. I have low suspicion for any C. difficile as the patient has not had any antibiotics recently, patient also does not exhibit any infectious-like symptoms. Patient's laboratory values showed normal CBC, patient's chemistries were unremarkable. Patient was able to provide a stool sample. Urinalysis shows contamination however did show 2+ bacteria, 10-25 squamous cells, no nitrites, this will be sent for culture. At this time, I do not believe the patient requires any admission. However patient states that she is too weak to go home, and she would like to be evaluated further at rehab. I did have the patient be seen by social work, she did have a PT/OT evaluation. Per PT and OT, she did well and is stable for discharge. However patient is still uncomfortable going home secondary to living alone. There could be some possible depression secondary to the patient's loneliness. The social work will now go over self- pay options with the patient. The skilled nursing/rehab facility was unable to have a bed until tomorrow. I will without call for admission for observation for the patient. The patient feels unsafe going home and feels that she needs rehab. <Dr. Ash Geller, DO - Last Filed: 06/12/23 15:35> [facility] MDM Narrative Medical decision making narrative: I have personally performed a face to face assessment of the patient and have reviewed the [facility] Note. I performed a substantive portion of the visit including all aspects of the following. My de [place]ant[place] findings include: History: Patient presents with diarrhea that has been constant for the past 3 days. Patient states it came on gradually. Patient describes it as loose and watery. Patient states that intermittently she will have a solid bowel movement. Patient denies any melena or hematochezia. Patient denies any vomiting. Patient admits to decreased appetite. Patient also admits to some subjective chills and some general weakness. Patient states nothing makes her symptoms any better or worse. Exam: Vital signs are stable except for mild tachycardia of 108. Patient is in no acute distress. Patient is afebrile. Oral mucosa is pink and moist. Neck is supple. Trachea is midline. There is no JVD. Heart was regular rate and rh ythm. Lungs are clear and equal bilaterally. Abdomen is soft. Bowel sounds are normal. There is some mild left-sided tenderness. There is no rebound or guarding noted. Cranial nerves II through XII are intact. There are no focal motor or sensory deficits noted. Medical Decision Making: Differential diagnosis includes gastroenteritis, colitis, viral illness, dehydration, and electrolyte abnormality. CBC will be obtained to assess for leukocytosis and anemia. Basic metabolic profile will be obtained to assess for electrolyte abnormality and renal function. Urinalysis will be obtained to assess for urinary tract infection and hematuria. Stool will be sent for enteric pathogens. CBC was reviewed and was within normal limits. Basic metabolic profile was reviewed and was essentially within normal limits. Urinalysis was reviewed. There is a contaminated specimen with 10-25 epithelial cells and 10-25 white blood cells. There is 2+ bacteria. Urine cult ure will be ordered. Patient does not feel she is safe to go home. diversified crops i farmworker was in to evaluate the patient and states that the patient does qualify for rehab. She contacted the TCU. They stated that patient would need a PT/OT evaluation before they can accept her into their unit. diversified crops i farmworker is checking to see if this can be done in the emergency department or if she will need to be a 23-hour observation to have this done before she can go to the TCU. Patient and family understand and are agreeable with the plan. All questions were answered. Lab Data Labs: Laboratory Results - last 24 hr 06/12/23 06/12/23 12:30 14:05 WBC 6.8 RBC 4.19 L Hgb 12.0 Hct 37.3 MCV 89.0 MCH 28.6 MCHC 32.2 RDW Std Deviation 41.6 RDW Coeff of Lizzy 12.9 Plt Count 404 MPV 9.0 Immature Gran % (Auto) 0.400 Neut % (Auto) 78.9 H Lymph % (Auto) 12.3 L Archuleta % (Auto) 7.7 Eos % (Auto) 0.4 Baso % (Auto) 0.3 Absolute Neuts (auto) 5.3 Absolute Lymphs (auto) 0.83 Nucleated RBC % 0 Sodium 138 Potassium 3.7 Chloride 108 H Carbon Dioxide 25.0 Anion Gap 5 BUN 24 H Creatinine 1.02 Est GFR (MDRD) Af Amer 69 Est GFR (MDRD) Non-Af 57 L BUN/Creatinine Ratio 23.5 H Glucose 117 H Calcium 9.6 Urine Color Yellow Urine Clarity Sl. Cloudy Urine pH 5.0 Ur Specific [place] 1.020 Urine Protein 100 H Urine Glucose (UA) Normal Urine Ketones 5 H Urine Occult Blood 10 H Urine Nitrite Negative Urine Bilirubin Negative Urine Urobilinogen 1 H Ur Leukocyte Esterase 100 H Urine RBC 0-5 SEEN Urine WBC 10-25 SEEN Ur Squamous Epith Cells 10-25 SEEN Urine Bacteria 2+ Hyaline Casts 0-5 SEEN Urine Mucus 0 SEEN Discharge Plan Dx/Rx/DC Orders Clinical Impression: Adult failure to thrive, Debility, Hx of decompressive lumbar laminectomy, Diarrhea Disposition Disposition: Acute Care Hospital [facility]
[2023-06-12] MEDS: Ondansetron 4 MG/2 ML Vial IV (12:35)
[2023-06-12] MEDS: 0.9% Normal Saline (1000mL) 1,000 ML 1000 ML IV (12:36)
[2023-06-12 12:46] LABS: Absolute Lymphocyte Count 0.83 X10^3/uL (0.83-4.51); Absolute Neutrophil Count 5.3 X10^3/uL (2.0-7.7); Basophil# 0.02 X10^3/uL; Basophil% 0.3 % (0-1); Eosinophil# 0.03 X10^3/uL; Eosinophils% 0.4 % (0-5); Hematocrit 37.3 % (37-47); Lymphocyte # 0.83 X10^3/ul (0.83-4.51); Lymphocyte % 12.3 % (19-41); Mean Corp Hgb Conc 32.2 g/dL (32-36); Mean Corpuscular Hgb 28.6 pg (27.0-32.0); Monocyte# 0.52 X10^3/uL; Monocyte% 7.7 % (0-10); NRBC Flagged by Analyzer 0 % (0-5); Neutrophil # 5.33 X10^3/uL (2.7-7.7); Neutrophil % 78.9 % (47-70); Platelet Count 404 K/mm3 (150-450); RBC Distribution Width CV 12.9 % (11.6-14.6); RBC Distribution Width SD 41.6 fl (35.1-43.9); Red Blood Count 4.19 M/mm3 (4.2-5.4); White Blood Count 6.8 K/mm3 (4.4-11.0)
[2023-06-12 12:58] LABS: Anion Gap 5 (5-15); BUN 24 mg/dL (7-18); BUN/Creat Ratio 23.5 RATIO (10-20); Calcium,Total 9.6 mg/dL (8.5-10.1); Chloride 108 mmol/L (98-107); Creatinine, Serum 1.02 mg/dL (0.55-1.02); EST Glomerular Filtration Rate 57 mL/min (>60); Est Glom Filt Rate - Afr Amer 69 mL/min (>60); Glucose 117 mg/dL (74-106); Potassium 3.7 mmol/L (3.5-5.1); Sodium Level 138 mmol/L (136-145)
--- OUTSIDE RECORDS SUMMARY | 2023-06-12 13:19 | XMS RPT_ITS | CCD ---
Author Name Unknown Address [address] [place] [address] Organization [facility] Care Team Providers Care Book Shelver Name Role Phone REFERRING, MONTSE MANRIQUEZ Unavailable Unavailable NILECANDY Unavailable Unavailable NILE, CANDY Unavailable Unavailable NILE DISTRIBUTION LEAD - SILVERING APPLICATOR, CANDY [facility] NILE DISTRIBUTION LEAD - SILVERING APPLICATOR, CANDY Radford Attending U navailable NILE DISTRIBUTION LEAD - SILVERING APPLICATOR, CANDY [facility] Primary [facility] U navailable NILE DISTRIBUTION LEAD - SILVERING APPLICATOR, CANDY Radford Attending U navailable NILE DISTRIBUTION LEAD - SILVERING APPLICATOR, CANDY Radford Primary Care U navailable NILE DISTRIBUTION LEAD - SILVERING APPLICATOR, CANDY Radford Attending U navailable NILE DISTRIBUTION LEAD - SILVERING APPLICATOR, CANDY Radford Primary Care U navailable NILE DISTRIBUTION LEAD - SILVERING APPLICATOR, CANDY Radford Attending U navailable NILE DISTRIBUTION LEAD - SILVERING APPLICATOR, CANDY Radford Primary Care U navailable FAHAD MENDEZ, DR WEBBER Attending Unavailabl e NILE DISTRIBUTION LEAD - SILVERING APPLICATOR, CANDY [facility]ford [facility] U navailable NILE DISTRIBUTION LEAD - SILVERING APPLICATOR, CANDY Radford Attending U navailable NILE DISTRIBUTION LEAD - SILVERING APPLICATOR, CANDY Radford Primary Care U navailable Allergies Allergy Classification Reported Allergen(s) Allergy Type Date of Onset Reaction(s) Facility (4 sources) Azithromycin; Translations: [azithromycin] Drug Allergy Headache (finding), Dizziness (finding) [facility] Work Phone: (4 sources) Cephalexin; Translations: [cephalexin] Drug Allergy Diarrhea (finding) [facility] Work Phone: Medications Current Medications Medication Drug Class(es) Dates Sig (Normalized) Sig (Original) atorvastatin 40 mg oral tablet (4 sources) HMG-CoA Reductase Inhibitor Start: 11-22-2022 atorvastatin 40 mg oral tablet Dose : 40 mg = 1 tab(s), Oral, qDay, # 90 tab(s), 1 Refill(s), Pharmacy: [id number], Hyperlipidemia LDL goal Start Date: 11/22/22 [...] Start: 03-21-2023 End: 03-22-2023 ambulatory CANDY DOWD DISTRIBUTION LEAD - SILVERING APPLICATOR Facility:B Start: 03-21-2023 End: 03-21-2023 Patient encounter procedure CANDY DOWD DISTRIBUTION LEAD - SILVERING APPLICATOR [facility] Start: 03-13-2023 End: 03-14-2023 ambulatory CANDY DOWD DISTRIBUTION LEAD - SILVERING APPLICATOR Facility:[facility] Start: 11-15-2022 End: 11-16-2022 ambulatory CANDY DOWD DISTRIBUTION LEAD - SILVERING APPLICATOR Facility:[facility] Start: 11-14-2022 End: 11-14-[address] LAWANDA VÁSQUEZ MD Facility:[facility] Start: 06-28-2022 End: 06-29-2022 ambulatory CANDY DOWD DISTRIBUTION LEAD - SILVERING APPLICATOR Facility:[facility] Start: 06-28-2022 End: 06-28-2022 Patient encounter procedure CANDY DOWD DISTRIBUTION LEAD - SILVERING APPLICATOR [facility] Start: 05-04-2022 End: 05-05-2022 ambulatory CANDY Radford NILE DISTRIBUTION LEAD - SILVERING APPLICATOR Facility:[facility] Start: 05-04-2022 End: 05-04-2022 Patient encounter procedure CANDY DOWD DISTRIBUTION LEAD - SILVERING APPLICATOR [facility] Start: 04-22-2021 End: 04-22-2021 Patient encounter procedure CANDY DOWD DISTRIBUTION LEAD - SILVERING APPLICATOR [facility] Start: 12-08-2016 End: 12-09-2016 Ambulatory PHY WO ID REFERRING Facility:[facility] Procedures Date Procedure Procedure Detail Performing Clinician Start: 05-02-2017 Bone density scan SAI GEMMA DOWD DISTRIBUTION LEAD - SILVERING APPLICATOR Start: 06-05-2011 Colonoscopy CANDY TURNER DISTRIBUTION LEAD - SILVERING APPLICATOR Immunizations Immunization Date Immunization Notes Care Provider Fa cility 03-06-2023 influenza, high dose seasonal, preservative-free; Translations: [Fluad Quadrivalent PF ] CANDY DOWD DISTRIBUTION LEAD - SILVERING APPLICATOR [facility] 03-29-2022 influenza, high dose seasonal, preservative-free CANDY DOWD DISTRIBUTION LEAD - SILVERING APPLICATOR [facility] 05-11-2021 influenza, high dose seasonal, preservative-free; Translations: [Fluad Quadrivalent PF ] CANDY DOWD DISTRIBUTION LEAD - SILVERING APPLICATOR [facility] 04-08-2021 SARS-CoV-2 mRNA (tozinameran) vaccine CANDY DOWD DISTRIBUTION LEAD - SILVERING APPLICATOR [facility] Payers Date Payer Category Payer Medicare [id number] 2022 Unknown [id number] 2004 Unknown [id number] 1955 Unknown [id number] 2.16.8 [id number] 1953 Unknown [id number] 2.16.8 [id number] 1953 Unknown [id number] 2.16.8 [id number] 1953 Unknown [id number] 2.16.8 [id number] 1953 Unknown [id number] 2.16.8 [id number] 1953 Unknown [id number] [id number] [id number] Social History Date Type Detail Facility Start: 04-23-2019 Heavy tobacco smoker (f inding) [facility] Evaluation + Plan note Note Date & Type Note Facility Evaluation + Plan note Future Appointments Appointment Date:05/11/2021 09:00:00 AM Scheduled Provider:CANDY DOWD APRN, CNP Location:[facility] Appointment Type:PC OV Follow Up [facility] Evaluation + Plan note Laboratory Note Date & Type Note Facility Evaluation + Plan note Future Appointments Appointment Date:05/12/2022 10:20:00 AM Scheduled Provider:CANDY DOWD APRN, CNP Location:[facility] Appointment Type:PC OV Follow Up Future Scheduled TestsMicroalbumin Level Urine 02/09/22 [facility] Evaluation + Plan note Laboratory Note Date & Type Note Facility Evaluation + Plan note Future Appointments Appointment Date:11/10/2022 10:20:00 AM Scheduled Provider:CANDY DOWD APRN, CNP Location:[facility] Appointment Type:PC OV Follow Up Future Scheduled TestsLipid Profile 11/10/22Microalbumin Level Urine 02/09/22Microalbumin Level Urine 11/10/22Vitamin D Level 11/10/22Complete Metabolic Panel 11/10/22 [facility] Evaluation + Plan note Laboratory Note Date & Type Note Facility Evaluation + Plan note Future Appointments Appointment Date:05/09/2023 09:40:00 AM Scheduled Provider:CANDY DOWD APRN, CNP Location:[facility] Appointment Type:PC OV Follow Up Future Scheduled TestsComplete Blood Count 05/24/23Lipid Profile 05/24/23Albumin/Creatinine Ratio, Random Urine 05/24/23Vitamin D Level 05/24/23Complete Metabolic Panel 05/24/23 [facility] Hospital course Narrative Note Date & Type Note Facility Hospital course Narrative No data available for this section [facility] Hospital Discharge instructions Note Date & Type Note Facility Hospital Discharge instructions No data available for this section [facility] Progress note Note Date & Type Note Facility Progress note No data available for this section [facility] Summary Purpose Family History No Family History Records Found No data available for this section No Family History Records Found Advance Directives No Advanced Directives Records FoundNo Advanced Directives Records Found Additional Source Comments INFORMATION SOURCE (unrecogn ized section and content) DATE CREATED AUTHOR AUTHOR'S ORGANIZ ATION 04/06/2023 [facility] ([place]) Care Team (unrecognized sect ion and content) Care Team Personnel Name: CANDY DOWD APRN, CNP Position: P4 Advanced Practice Nurse Member Role: Primary Care Physician Address: Address: [address] [place] [address] Care Team Related Persons Name: NIDIA LEACH Care Team Personnel Name: CANDY DOWD APRN, CNP Position: P4 Advanced Practice Nurse Member Role: Primary Care Physician Address: Address: [address] [place] [address] Care Team Related Persons Name: NIDIA LEACH Patient Care team informatio n (unrecognized section and content) Care Team Personnel Name: CANDY DOWD APRN - WALDO Position: P4 Advanced Office Specialist Member Role: Primary Care Physician Address: Address: [address] [place] [address]- Care Team Related Persons Name: NIDIA LEACH [...] BE BASED ON THE PRIMARY CLINICAL RECORDS. [facility]. provides no warranty or guarantee of the accuracy or completeness of information in this document.
[2023-06-12 14:14] VITALS: BMI 26.2
[2023-06-12 14:14] LABS: Mucous, Urine 0 SEEN /hpf (<or=2+)
[2023-06-12 14:23] LABS: Color, Urine Yellow (Yellow); Glucose, Dipstick Normal (Normal); Ketone-Dipstick 5 mg/dl (Negative); Leukocyte Esterase-Dipstick 100 /ul (Negative); Nitrite-Dipstick Negative (Negative); Occult Blood-Urine 10 /ul (Negative); Protein-Dipstick 100 mg/dl (Negative); Urine Bilirubin Dipstick Negative (Negative); Urine Clarity Sl. Cloudy (Clear); Urine Urobilinogen 1 mg/dl (Normal)
[2023-06-12 14:35] LABS: Bacteria 2+ /hpf (None Seen); Hyaline Cast 0-5 SEEN /lpf (0-5); Red Blood Cells-Urine 0-5 SEEN /hpf (0-5); Squamous Epithelial Cells - UA 10-25 SEEN /hpf (5-10); White Blood Cells 10-25 SEEN /hpf (0-5)
[2023-06-12] MEDS: HYDROcodone Bitartrate/Apap 5/325 Tablet PO ×2 (14:52→18:27)
--- NOTE | 2023-06-12 17:19 | CM.ED ---
Social Work SW introduced self and role to patient. Pt reports feeling weak, not eating well, loss of appetite and difficulty caring for herself at home. Pt reports her sister in law is helping her as she is able but she has limitations and health concerns. Pt reports her friend that helps has RSV and is unable to help currently. Pt reports her has passed and she has no children. Pt discharged from TCU last week. Pt reports she spoke with Dr. Castle about her weakness today and she recommend her to come to the ED. Pt is requesting SNF placement and to return to TCU if possible. SW spoke with Ciera from TCU, PT/OT evaluations requested due to recent discharge and how well patient was doing physically at that time. PT/OT were able to come to evaluate in the ED. PT/OT reports patient is physically doing well. Pt is resistant to going home and reports being afraid to be home alone currently. Pt reports this has not been an issue in the past. Pt presents as depressed and reports she has had negative thoughts and difficulty making herself eat/no appetite. SW provided patient with home delivery meals info, private duty HHC list, private pay snf list, [employer] and [email or web address] day program information. SW reviewed that patient would not be skillable for TCU or other SNF. Pt reports she feels like she needs to go somewhere for a week or two and is insistent she cannot go home alone. Pt reviewed lists and would like to go to [facility] private pay. Pt would also like to set up meals and a home health aide for when she is home. SW spoke with [facility] and they report no room currently but that a room should be available tomorrow. Requested referral via [facility]. SW notified patient and ED providers. SW sending patient information via [employer] for review. Cristal Lomax MECHANICAL TEST ENGINEER, HOUSE MOVING SUPERVISOR
--- NOTE | 2023-06-12 17:53 | PCM.HP.STD ---
HPI - General General Date of Admission: 06/12/23 Date of Service: 06/12/23 Chief Complaint: Fatigue, weakness, loose stools. HPI Narrative The patient is a 68 y/o F w/ PMHx: GERD, Chronic migraines, Hx COVID, Tobacco use, HTN, HLD, Anxiety and Depression, Chronic back pain with bilateral lower extremity radiculopathy with recent back surgery specifically hemilaminectomy per record report 05/2023 with transition following to TCU with return to home 06/07/2023 initially doing well at home however she lives alone and does use a wheeled walker and over the last 3 days she has been having loose stools with increased weakness and debility not on any recent antibiotics with reportedly 3-4 loose bowel movements and then a solid bowel movement prompting call to her PCP who referred to the ED for IV fluids and stool cultures. She does report taking Pepto-Bismol and occasionally has had dark stools following this. She denies any recent ill contacts. She notes currently no diarrhea since this AM. She notes also pain in the lumbar spine dull aching, sharp with activity attempts, rated currently 5/10 in severity. She denies any recent fever, chills, URI symptoms, abdominal pain, nausea or emesis associated. Workup in the ED included T96.6, heart rate 108, BP 164/115, respiratory rate 20, 94% on room air, CBC with WBC 6.8, hemoglobin 12, platelet 404 without marked shift, BMP with chloride 108, BUN/creatinine 24/1.02, glucose 117, urinalysis noted to be cloudy with specific gravity 1.020, protein 100, ketone 5, occult blood 10, negative nitrite, leukocyte Estrace 100 with urine WBCs 10-25 however is a poor sample with squamous epithelial cells noted to be also 10-25 with 2+ urine bacteria. In the ED patient ministered 1 L normal saline, Zofran 4 mg IV x 1 as well as hydrocodone 1 tablet x 1. [facility] Medical History Anxiety Basal cell carcinoma Chronic back pain COVID Endometriosis Essential hypertension GERD (gastroesophageal reflux disease) IBS (irritable bowel syndrome) Migraine Mixed hyperlipidemia Scoliosis Smoker Smokes cigarettes Vitamin D deficiency Home Medications atorvastatin 40 mg tablet 40 mg PO QHS CHOLESTEROL 05/15/23 [History Last Taken Unknown] ergocalciferol (vitamin D2) 1,250 mcg (50,000 unit) capsule 50,000 unit PO QMONTH SUPPLEMENT 05/15/23 [History Last Taken 05/09/23] multivitamin 1 tab PO DAILY HEALTH MAINTENACE 05/15/23 [History Last Taken Unknown] venlafaxine 75 mg capsule,extended release 24 hr (Effexor XR) 75 mg PO DAILY DEPRESSION 05/15/23 [History Last Taken Unknown] losartan 100 mg tablet (Cozaar) 100 mg PO DAILY BLOOD PRESSURE #1 TAB 05/26/23 [Rx Last Taken Unknown] sennosides 8.6 mg-docusate sodium 50 mg tablet (Stool Softener-Stimulant Laxative) 2 tab PO BID STOOL SOFTENER #120 tabs 06/06/23 [Rx Last Taken Unknown] cyclobenzaprine 5 mg tablet 5 mg PO TID PRN MUSCLE SPASMS 06/12/23 [History Last Taken Unknown] gabapentin 100 mg capsule 200 mg PO BID NERVE PAIN 06/12/23 [History Last Taken Unknown] gabapentin 100 mg capsule 300 mg PO QHS NERVE PAIN 06/12/23 [History Last Taken Unknown] hydrocodone-acetaminophen 5-325mg 5mg-325mg 1 - 2 tab PO Q6H PRN PAIN 06/12/23 [History Last Taken Unknown] magnesium hydroxide 400 mg/5 mL oral suspension 30 ml PO X1 PRN CONSTIPATION 06/12/23 [History Last Taken Unknown] Allergy/AdvReac Type Severity Reaction Status Date / Time No Known Allergies Allergy Verified 06/12/23 12:04 Family History Father Heart failure Mother Kidney disease Alzheimer disease Surgical History (Updated 06/12/23 @ 19:[address] Jeri Burns MD) Cataract extraction status History of appendectomy History of hemilaminectomy History of tonsillectomy S/P ORIF (open reduction internal fixation) fracture Social History (Updated 06/12/23 @ 19:[address] Jeri Burns MD) household members: none current occupational status: retired current occupation: Worked at [employer] pets and animals: Yes pets and animals: cat(s) and dog(s) Smoking Status: Current some day smoker tobacco type: cigarettes quit status: considering quitting alcohol intake: current alcohol intake frequency: 0-2 drinks per day Alcohol type: beer substance use type: does not use do you feel safe at home: Yes ROS ROS Narrative Admission Review of Systems: CONSTITUTIONAL: No weight loss, fever, chills, + weakness or fatigue. HEENT: Eyes: No visual loss, blurred vision, double vision or yellow sclerae. Ears, Nose, Throat: No hearing loss, sneezing, congestion, runny nose or sore throat. SKIN: No rash or itching, lesions, wounds. CARDIOVASCULAR: No chest pain, chest pressure or chest discomfort, palpitations, edema, orthopnea, syncopal events. RESPIRATORY: No shortness of breath, cough or sputum, wheezing, hemoptysis. GASTROINTESTINAL: + Diarrhea. No anorexia, nausea, vomiting, abdominal pain, melena, BRBPR. GENITOURINARY: No dysuria, frequency, urgency or retention. NEUROLOGICAL: No headache, dizziness, syncope, paralysis, ataxia, numbness or tingling in the extremities, focal weakness, change in bowel or bladder control, seizure. MUSCULOSKELETAL: + muscle, back pain, joint pain or stiffness. HEMATOLOGIC: No anemia, bleeding or bruising. LYMPHATICS: No enlarged nodes. No history of splenectomy. PSYCHIATRIC: + history of depression or anxiety. ENDOCRINOLOGIC: No reports of sweating, cold or heat intolerance. No polyuria or polydipsia. ALLERGIES: No history of asthma, hives, eczema or rhinitis. Vital Signs Vital Signs Vital Signs: 06/12/23 12:04 Temperature 96.6 F L Temperature Source Temporal Pulse Rate 108 H Respiratory Rate 20 H Blood Pressure 164/115 H Blood Pressure Mean 131 Pulse Ox 94 Oxygen Delivery Method Room Air Weight Weight: 182 lb 8.684 oz Body Mass Index (BMI) 26.2 Physical Exam Narrative Physical Examination: General: Awake, alert, oriented x 3 and cooperative, laying in the ED bed, fatigued appearing, notes back discomfort currently 5/10 in severity. Skin: Normal color, normal turgor, no icterus, no cyanosis. HEENT: AT/NC, EOMI, PERRLA, mildly dry MM, no carotid bruits or JVD noted. Lungs: CTA bilaterally, moderate effort, mild decrease BL bases, no rales, ronchi or wheezing. Heart: Mildly tachycardic with regular rhythm; no gallop, rub audible. Abdomen: Soft, NTTP, ND, hyperactive BS, no HSM. Extremities: No cyanosis, clubbing, or edema. Neurological: Patient awake, alert, oriented as noted, cognitive function intact; pupils equally reactive to light and accommodation, cranial nerves grossly normal, moving all 4 extremities, no focal deficits, strength moderately to severely global decrease secondary to acute presentation complaints compounded by recent lumbar surgery. Psychiatric: Affect appears flat, fatigued, no acute evidence of depressive or anxiety feelings but does have underlying history. Results Lab / Micro Data 06/12/23 12:30 06/12/23 12:30 Labs: Laboratory Results - last 24 hr 06/12/23 12:30: WBC 6.8, RBC 4.19 L, Hgb 12.0, Hct 37.3, MCV 89.0, MCH 28.6, MCHC 32.2, RDW Std Deviation 41.6, RDW Coeff of Lizzy 12.9, Plt Count 404, MPV 9.0, Immature Gran % (Auto) 0.400, Neut % (Auto) 78.9 H, Lymph % (Auto) 12.3 L, [place] % (Auto) 7.7, Eos % (Auto) 0.4, Baso % (Auto) 0.3, Absolute Neuts (auto) 5.3, Absolute Lymphs (auto) 0.83, Nucleated RBC % 0, Sodium 138, Potassium 3.7, Chloride 108 H, Carbon Dioxide 25.0, Anion Gap 5, BUN 24 H, Creatinine 1.02, Est GFR (MDRD) Af Amer 69, Est GFR (MDRD) Non-Af 57 L, BUN/Creatinine Ratio 23.5 H, Glucose 117 H, Calcium 9.6 06/12/23 14:05: Urine Color Yellow, Urine Clarity Sl. Cloudy, Urine pH 5.0, Ur Specific [place] 1.020, Urine Protein 100 H, Urine Glucose (UA) Normal, Urine Ketones 5 H, Urine Occult Blood 10 H, Urine Nitrite Negative, Urine Bilirubin Negative, Urine Urobilinogen 1 H, Ur Leukocyte Esterase 100 H, Urine RBC 0-5 SEEN, Urine WBC 10-25 SEEN, Ur Squamous Epith Cells 10-25 SEEN, Urine Bacteria 2+, Hyaline Casts 0-5 SEEN, Urine Mucus 0 SEEN Assessment & Plan Assessment/Plan (1) Diarrhea: PLAN: Plan The patient is a 68 y/o F w/ PMHx: GERD, Chronic migraines, Hx COVID, Tobacco use, HTN, HLD, Anxiety and Depression, Chronic back pain with bilateral lower extremity radiculopathy with recent back surgery specifically hemilaminectomy per record report 05/2023 with transition following to TCU with return to home 06/07/2023 initially doing well at home however she lives alone and does use a wheeled walker and over the last 3 days she has been having loose stools with increased weakness and debility not on any recent antibiotics with reportedly 3-4 loose bowel movements and then a solid bowel movement prompting call to her PCP who referred to the ED for IV fluids and stool cultures. #1. Adult Failure to Thrive complicated by #2 with increase fatigue, weakness, difficulty caring for self in home: Will admit to medical surgical floor to be cautious, maintain on judicious IV fluids, assessing stools as noted, will monitor I&Os, maintain on fall precautions, PT/OT/case management consulted for discharge planning. Given the situation patient may potentially need repeat skilled facility placement temporarily. Procalcitonin requested. #2. Persistent loose stools, possible gastroenteritis: Will continue hydration, requested C. difficile and stool culture as well as respiratory viral panel. Will not start antibiotics at this time given unclear source pending stool studies as may be viral gastroenteritis or alternate etiology. #3. Chronic lumbar back pain with recent history of hemilaminectomy: Encourage positional changes, PT/OT/case management consulted for discharge planning, maintain on fall precautions, continue gabapentin as well as patient home hydrocodone regimen. #4. Anxiety and depression: We will continue patient home venlafaxine regimen. #5. Tobacco Abuse: Encouraged cessation, inpatient consultation per RT, NR if desired. #6. Hypertension: Continue home regimen including losartan, PRN hydralazine. #7. Hyperlipidemia: We will continue patient on statin therapy. #8. DVT prophylaxis: Lovenox. #9. CODE status: Patient HCPJOSE L is Phylicia Quiñonez her friend and living will is currently in place. Discussed CODE status at length including difference between FULL code, DNR-CCA and DNR-CC status. Following discussions about the differences in these status, requested Full Code status. Advanced Care Planning Face to Face Time: 16 minutes. Charges/Coding Visit Charges Inpatient E&M: 89610 Init Hosp L2 Procedures Hospitalists Procedures: 94325 Advncd Care Plan 30 Min
[2023-06-12 18:54] LABS: Magnesium 2.3 mg/dL (1.6-2.6); Phosphorus 3.8 mg/dL (2.5-4.9)
[2023-06-12 19:47] LABS: Procalcitonin 0.04 ng/mL (0.00-0.09)
[2023-06-12 20:00] VITALS: RESP 16
--- OUTSIDE RECORDS SUMMARY | 2023-06-12 20:32 | XMS RPT_ITS | CCD ---
Author Name Unknown Address [address] [place] [address] Organization [facility] Care Team Providers Care Afterschool Babysitter Name Role Phone REFERRING, MONTSE MANRIQUEZ Unavailable Unavailable NILECANDY Unavailable Unavailable NILE, CANDY Unavailable Unavailable NILE RETAIL FINANCIAL ANALYST - [employer], CANDY [place] [facility] NILE RETAIL FINANCIAL ANALYST - [employer], CANDY [place] Attending U navailable NILE RETAIL FINANCIAL ANALYST - [employer], CANDY [place] Primary Care U navailable NILE RETAIL FINANCIAL ANALYST - [employer], CANDY [place] Attending U navailable NILE RETAIL FINANCIAL ANALYST - [employer], CANDY [place] Primary Care U navailable NILE RETAIL FINANCIAL ANALYST - [employer], CANDY [place] Attending U navailable NILE RETAIL FINANCIAL ANALYST - [employer], CANDY [place] Primary Care U navailable NILE RETAIL FINANCIAL ANALYST - [employer], CANDY [place] Attending U navailable NILE RETAIL FINANCIAL ANALYST - [employer], CANDY [place] Primary Care U navailable FAHAD MENDEZ, DR WEBBER Attending Unavailabl e NILE RETAIL FINANCIAL ANALYST - [employer], CANDY [place] Primary Care U navailable NILE RETAIL FINANCIAL ANALYST - [employer], CANDY [place] Attending U navailable NILE RETAIL FINANCIAL ANALYST - [employer], CANDY [place] Primary Care U navailable Allergies Allergy Classification Reported Allergen(s) Allergy Type Date of Onset Reaction(s) Facility (4 sources) Azithromycin; Translations: [azithromycin] Drug Allergy Headache (finding), Dizziness (finding) [facility] Work Phone: (4 sources) Cephalexin; Translations: [cephalexin] Drug Allergy Diarrhea (finding) [facility] Work Phone: Medications Current Medications Medication Drug Class(es) Dates Sig (Normalized) Sig (Original) atorvastatin 40 mg oral tablet (4 sources) HMG-CoA Reductase Inhibitor Start: 11-22-2022 atorvastatin 40 mg oral tablet Dose : 40 mg = 1 tab(s), Oral, qDay, # 90 tab(s), 1 Refill(s), Pharmacy: [facility], Hyperlipidemia LDL goal Start Date: 11/22/22 [...] Start: 03-21-2023 End: 03-22-2023 ambulatory CANDY DOWD RETAIL FIN[employer]CIAL ANALYST - [employer] Facility:B Start: 03-21-2023 End: 03-21-2023 Patient encounter procedure CANDY DOWD RETAIL FIN[employer]CIAL ANALYST - [employer] [facility] Start: 03-13-2023 End: 03-14-2023 ambulatory CANDY DOWD RETAIL FIN[employer]CIAL ANALYST - [employer] Facility:[facility] Start: 11-15-2022 End: 11-16-2022 ambulatory CANDY DOWD RETAIL FIN[employer]CIAL ANALYST - [employer] Facility:[facility] Start: 11-14-2022 End: 11-14-[address] LAWANDA VÁSQUEZ MD Facility:[facility] Start: 06-28-2022 End: 06-29-2022 ambulatory CANDY DOWD RETAIL FIN[employer]CIAL ANALYST [employer] Facility:[facility] Start: 06-28-2022 End: 06-28-2022 Patient encounter procedure CANDY DOWD RETAIL FIN[employer]CIAL ANALYST - [employer] [facility] Start: 05-04-2022 End: 05-05-2022 ambulatory CANDY Radford NILE RETAIL FINANCIAL ANALYST - [employer] Facility:[facility] Start: 05-04-2022 End: 05-04-2022 Patient encounter procedure CANDY DOWD RETAIL [employer] ANA[employer] - [employer] [facility] Start: 04-22-2021 End: 04-22-2021 Patient encounter procedure CANDY DOWD RETAIL FIN[employer]CIAL ANALY[employer] - [employer] [facility] Start: 12-08-2016 End: 12-09-2016 Ambulatory PHY WO ID REFERRING Facility:[facility] [place] Procedures Date Procedure Procedure Detail Performing Clinician Start: 05-02-2017 Bone density scan SAI GEMMA DOWD RETAIL [employer] ANA[employer] Start: 06-05-2011 Colonoscopy CANDY TURNER RETAIL FIN[employer]CIAL ANALYST - [employer] Immunizations Immunization Date Immunization Notes Care Provider Fa cility 03-06-2023 influenza, high dose seasonal, preservative-free; Translations: [Fluad Quadrivalent PF ] CANDY DOWD RETAIL FIN[employer]CIAL ANALYST [employer] [facility] 03-29-2022 influenza, high dose seasonal, preservative-free CANDY DOWD RETAIL FINANCIAL ANALYST - [employer] [facility] 05-11-2021 influenza, high dose seasonal, preservative-free; Translations: [Fluad Quadrivalent PF ] CANDY DOWD RETAIL FINANCIAL ANALYST [employer] [facility] 04-08-2021 SARS-CoV-2 mRNA (tozinameran) vaccine CANDY DOWD RETAIL FINANCIAL ANALYST [employer] [facility] Payers Date Payer Category Payer Medicare [id number] 2022 Unknown [id number] 2004 Unknown [id number] 1955 Unknown [id number] 2.16.8 [id number] 1955 Unknown [id number] 2.16.8 [id number] 1953 Unknown [id number] 2.16.8 [id number] 1953 Unknown [id number] 2.16.8 [id number] 1953 Unknown [id number] 2.16.8 [id number] 1955 Unknown [id number] 2.16.8 [id number] Social History Date Type Detail Facility Start: 04-23-2019 Heavy tobacco smoker (f inding) [facility] Evaluation + Plan note Note Date & Type Note Facility Evaluation + Plan note Future Appointments Appointment Date:05/11/2021 09:00:00 AM Scheduled Provider:CANDY DOWD APRN, CNP Location:[facility] Appointment Type:PC OV Follow Up [facility] Evaluation + Plan note Laboratory Note Date & Type Note Facility Evaluation + Plan note Future Appointments Appointment Date:05/12/2022 10:20:00 AM Scheduled Provider:CANDY DOWD APRN, CNP Location:[facility] Appointment Type:PC OV Follow Up Future Scheduled TestsMicroalbumin Level Urine 02/09/22 [facility] Evaluation + Plan note Laboratory Note Date & Type Note Facility Evaluation + Plan note Future Appointments Appointment Date:11/10/2022 10:20:00 AM Scheduled Provider:CANDY DOWD APRN, CNP Location:[facility] Appointment Type:PC OV Follow Up Future Scheduled TestsLipid Profile 11/10/22Microalbumin Level Urine 02/09/22Microalbumin Level Urine 11/10/22Vitamin D Level 11/10/22Complete Metabolic Panel 11/10/22 [facility] Evaluation + Plan note Laboratory Note Date & Type Note Facility Evaluation + Plan note Future Appointments Appointment Date:05/09/2023 09:40:00 AM Scheduled Provider:CANDY DOWD APRN, CNP Location:[facility] Appointment Type:PC OV Follow Up Future Scheduled TestsComplete Blood Count 05/24/23Lipid Profile 05/24/23Albumin/Creatinine Ratio, Random Urine 05/24/23Vitamin D Level 05/24/23Complete Metabolic Panel 05/24/23 [facility] Hospital course Narrative Note Date & Type Note Facility Hospital course Narrative No data available for this section [facility] Hospital Discharge instructions Note Date & Type Note Facility Hospital Discharge instructions No data available for this section [facility] Progress note Note Date & Type Note Facility Progress note No data available for this section [facility] Summary Purpose Family History No Family History Records Found No data available for this section No Family History Records Found Advance Directives No Advanced Directives Records FoundNo Advanced Directives Records Found Additional Source Comments INFORMATION SOURCE (unrecogn ized section and content) DATE CREATED AUTHOR AUTHOR'S ORGANIZ ATION 04/06/2023 [facility] ([place]) Care Team (unrecognized sect ion and content) Care Team Personnel Name: CANDY DOWD APRN, CNP Position: P4 Advanced Practice Nurse Member Role: Primary Care Physician Address: Address: [address] [place] [address] Care Team Related Persons Name: NIDIA LEACH Care Team Personnel Name: CANDY DOWD APRN, CNP Position: P4 Advanced Practice Nurse Member Role: Primary Care Physician Address: Address: [address] [place] [address] Care Team Related Persons Name: NIDIA LEACH Patient Care team informatio n (unrecognized section and content) Care Team Personnel Name: CANDY DOWD APRN - WALDO Position: P4 Advanced Refresh Technician Member Role: Primary Care Physician Address: Address: [address] [place] [address]- Care Team Related Persons Name: NIDIA LEACH [...] BE BASED ON THE PRIMARY CLINICAL RECORDS. [facility]. provides no warranty or guarantee of the accuracy or completeness of information in this document.
--- OUTSIDE RECORDS SUMMARY | 2023-06-12 21:04 | XMS RPT_ITS | CCD ---
Author Name Unknown Address [address] [place] [address] Organization [facility] Care Team Providers Care [employer] Re[employer]er Name Role Phone REFERRING, MONTSE MANRIQUEZ Unavailable Unavailable NILECANDY Unavailable Unavailable NILE, CANDY Unavailable Unavailable NILE CLINICAL SECRETARY - ASSOCIATE SPA DIRECTOR, CANDY Radford [facility] NILE CLINICAL SECRETARY - ASSOCIATE SPA DIRECTOR, CANDY Radford Attending U navailable NILE CLINICAL SECRETARY - ASSOCIATE SPA DIRECTOR, CANDY Radford Primary Care U navailable NILE CLINICAL SECRETARY - ASSOCIATE SPA DIRECTOR, CANDY Radford Attending U navailable NILE CLINICAL SECRETARY - ASSOCIATE SPA DIRECTOR, CANDY Radford Primary Care U navailable NILE CLINICAL SECRETARY - ASSOCIATE SPA DIRECTOR, CANDY Radford Attending U navailable NILE CLINICAL SECRETARY - ASSOCIATE SPA DIRECTOR, CANDY Radford Primary Care U navailable NILE CLINICAL SECRETARY - ASSOCIATE SPA DIRECTOR, CANDY Radford Attending U navailable NILE CLINICAL SECRETARY - ASSOCIATE SPA DIRECTOR, CANDY Radford Primary Care U navailable FAHAD MENDEZ, DR WEBBER Attending Unavailabl e NILE CLINICAL SECRETARY - ASSOCIATE SPA DIRECTOR, CANDY Radford Primary Care U navailable NILE CLINICAL SECRETARY - ASSOCIATE SPA DIRECTOR, CANDY Radford Attending U navailable NILE CLINICAL SECRETARY - ASSOCIATE SPA DIRECTOR, CANDY Radford Primary Care U navailable Allergies Allergy Classification Reported Allergen(s) Allergy Type Date of Onset Reaction(s) Facility (4 sources) Azithromycin; Translations: [azithromycin] Drug Allergy Headache (finding), Dizziness (finding) [facility] Work Phone: (4 sources) Cephalexin; Translations: [cephalexin] Drug Allergy Diarrhea (finding) [facility] Work Phone: Medications Current Medications Medication Drug Class(es) Dates Sig (Normalized) Sig (Original) atorvastatin 40 mg oral tablet (4 sources) HMG-CoA Reductase Inhibitor Start: 11-22-2022 atorvastatin 40 mg oral tablet Dose : 40 mg = 1 tab(s), Oral, qDay, # 90 tab(s), 1 Refill(s), Pharmacy: [id number], Hyperlipidemia LDL goal Start Date: 11/22/22 [...] Start: 03-21-2023 End: 03-22-2023 ambulatory CANDY DOWD CLINICAL SECRETARY - ASSOCIATE SPA DIRECTOR Facility:B Start: 03-21-2023 End: 03-21-2023 Patient encounter procedure CANDY DOWD CLINICAL SECRETARY - ASSOCIATE SPA DIRECTOR [facility] Start: 03-13-2023 End: 03-14-2023 ambulatory CANDY DOWD CLINICAL SECRETARY - ASSOCIATE SPA DIRECTOR Facility:[facility] Start: 11-15-2022 End: 11-16-2022 ambulatory CANDY DOWD CLINICAL SECRETARY - ASSOCIATE SPA DIRECTOR Facility:[facility] Start: 11-14-2022 End: 11-14-[address] LAWANDA VÁSQUEZ MD Facility:[facility] Start: 06-28-2022 End: 06-29-2022 ambulatory CANDY DOWD CLINICAL SECRETARY - ASSOCIATE SPA DIRECTOR Facility:[facility] Start: 06-28-2022 End: 06-28-2022 Patient encounter procedure CANDY DOWD CLINICAL SECRETARY - ASSOCIATE SPA DIRECTOR [facility] Start: 05-04-2022 End: 05-05-2022 ambulatory CANDY Radford NILE CLINICAL SECRETARY - ASSOCIATE SPA DIRECTOR Facility:[facility] Start: 05-04-2022 End: 05-04-2022 Patient encounter procedure CANDY DOWD CLINICAL SECRETARY - ASSOCIATE SPA DIRECTOR [facility] Start: 04-22-2021 End: 04-22-2021 Patient encounter procedure CANDY DOWD CLINICAL SECRETARY - ASSOCIATE SPA DIRECTOR [facility] Start: 12-08-2016 End: 12-09-2016 Ambulatory PHY WO ID REFERRING Facility:[facility] Procedures Date Procedure Procedure Detail Performing Clinician Start: 05-02-2017 Bone density scan SAI GEMMA DOWD CLINICAL SECRETARY - ASSOCIATE SPA DIRECTOR Start: 06-05-2011 Colonoscopy CANDY TURNER CLINICAL SECRETARY - ASSOCIATE SPA DIRECTOR Immunizations Immunization Date Immunization Notes Care Provider Fa cility 03-06-2023 influenza, high dose seasonal, preservative-free; Translations: [Fluad Quadrivalent PF ] CANDY DOWD CLINICAL SECRETARY - ASSOCIATE SPA DIRECTOR [facility] 03-29-2022 influenza, high dose seasonal, preservative-free CANDY DOWD CLINICAL SECRETARY - ASSOCIATE SPA DIRECTOR [facility] 05-11-2021 influenza, high dose seasonal, preservative-free; Translations: [Fluad Quadrivalent PF ] CANDY DOWD CLINICAL SECRETARY - ASSOCIATE SPA DIRECTOR [facility] 04-08-2021 SARS-CoV-2 mRNA (tozinameran) vaccine CANDY DOWD CLINICAL SECRETARY - ASSOCIATE SPA DIRECTOR [facility] Payers Date Payer Category Payer Medicare [id number] 2022 Unknown [id number] 2004 Unknown [id number] 1955 Unknown [id number] 1955 Unknown [id number] [id number] [id number] 1953 Unknown [id number] [id number] [id number] 1953 Unknown [id number] [id number] [id number] 1953 Unknown [id number] [id number] [id number] 1953 Unknown [id number] [id number] Social History Date Type Detail Facility Start: 04-23-2019 Heavy tobacco smoker (f inding) [facility] Evaluation + Plan note Note Date & Type Note Facility Evaluation + Plan note Future Appointments Appointment Date:05/11/2021 09:00:00 AM Scheduled Provider:CANDY DOWD APRN, CNP Location:[facility] Appointment Type:PC OV Follow Up [facility] Evaluation + Plan note Laboratory Note Date & Type Note Facility Evaluation + Plan note Future Appointments Appointment Date:05/12/2022 10:20:00 AM Scheduled Provider:CANDY DOWD APRN, CNP Location:[facility] Appointment Type:PC OV Follow Up Future Scheduled TestsMicroalbumin Level Urine 02/09/22 [facility] Evaluation + Plan note Laboratory Note Date & Type Note Facility Evaluation + Plan note Future Appointments Appointment Date:11/10/2022 10:20:00 AM Scheduled Provider:CANDY DOWD APRN, CNP Location:[facility] Appointment Type:PC OV Follow Up Future Scheduled TestsLipid Profile 11/10/22Microalbumin Level Urine 02/09/22Microalbumin Level Urine 11/10/22Vitamin D Level 11/10/22Complete Metabolic Panel 11/10/22 [facility] Evaluation + Plan note Laboratory Note Date & Type Note Facility Evaluation + Plan note Future Appointments Appointment Date:05/09/2023 09:40:00 AM Scheduled Provider:CANDY DOWD APRN, CNP Location:[facility] Appointment Type:PC OV Follow Up Future Scheduled TestsComplete Blood Count 05/24/23Lipid Profile 05/24/23Albumin/Creatinine Ratio, Random Urine 05/24/23Vitamin D Level 05/24/23Complete Metabolic Panel 05/24/23 [facility] Hospital course Narrative Note Date & Type Note Facility Hospital course Narrative No data available for this section [facility] Hospital Discharge instructions Note Date & Type Note Facility Hospital Discharge instructions No data available for this section [facility] Progress note Note Date & Type Note Facility Progress note No data available for this section [facility] Summary Purpose Family History No Family [...] Member Role: Primary Care Physician Address: Address: [address] [place] [address] Care Team Related Persons Name: NIDIA LEACH Care Team Personnel Name: CANDY DOWD APRN, CNP Position: P4 Advanced Practice Nurse Member Role: Primary Care Physician Address: Address: [address] [place] [address] Care Team Related Persons Name: NIDIA LEACH Patient Care team informatio n (unrecognized section and content) Care Team Personnel Name: CANDY DOWD APRN - WALDO Position: P4 Advanced State Inspector Member Role: Primary Care Physician Address: Address: [address] [place] [address]- Care Team Related Persons Name: NIDIA LEACH [...] BE BASED ON THE PRIMARY CLINICAL RECORDS. [facility]. provides no warranty or guarantee of the accuracy or completeness of information in this document.
[2023-06-12 21:20] VITALS: BMI 25.9
[2023-06-12 21:22] VITALS: BP 176/100; PULSE 68; RESP 17; TEMP 36.6; O2SAT 98
[2023-06-12 21:40] VITALS: O2SAT 95
[2023-06-12 22:08] VITALS: BP 176/100; PULSE 68
[2023-06-12] MEDS: hydrALAZINE 20 MG/ML Vial 10 MG IV (22:08)
[2023-06-12] MEDS: 0.9% Saline Lock 10 ML Syringe IV (22:08)
[2023-06-12] MEDS: Gabapentin 300 MG Capsule PO (22:08)
[2023-06-12] MEDS: Atorvastatin Calcium 40 MG Tablet PO (22:08)
[2023-06-13] VITALS: BP 135/74; PULSE 67; RESP 16; TEMP 36.5; O2SAT 100
[2023-06-13 04:00] VITALS: BP 155/93; PULSE 66; RESP 16; TEMP 36.6; O2SAT 97
[2023-06-13 04:49] VITALS: BMI 26.0
[2023-06-13] MEDS: Gabapentin 100 MG Capsule 200 MG PO ×2 (05:27→14:33)
[2023-06-13] MEDS: HYDROcodone Bitartrate/Apap 5/325 Tablet PO (05:28)
[2023-06-13 07:39] VITALS: BP 133/86; PULSE 68; RESP 18; TEMP 36.3; O2SAT 98
[2023-06-13 07:56] LABS: Absolute Lymphocyte Count 1.35 X10^3/uL (0.83-4.51); Absolute Neutrophil Count 4.2 X10^3/uL (2.0-7.7); Basophil# 0.03 X10^3/uL; Basophil% 0.5 % (0-1); Eosinophil# 0.17 X10^3/uL; Eosinophils% 2.7 % (0-5); Hematocrit 31.5 % (37-47); Hemoglobin 10.1 g/dL (12.0-15.0); Lymphocyte # 1.35 X10^3/ul (0.83-4.51); Lymphocyte % 21.1 % (19-41); Mean Corp Hgb Conc 32.1 g/dL (32-36); Mean Corpuscular Hgb 28.7 pg (27.0-32.0); Mean Corpuscular Volume 89.5 fL (81-99); Mean Platelet Vol. 9.3 fl (6.2-12.0); Monocyte# 0.66 X10^3/uL; Monocyte% 10.3 % (0-10); NRBC Flagged by Analyzer 0 % (0-5); Neutrophil # 4.15 X10^3/uL (2.7-7.7); Neutrophil % 64.9 % (47-70); Platelet Count 348 K/mm3 (150-450); RBC Distribution Width SD 42.4 fl (35.1-43.9); Red Blood Count 3.52 M/mm3 (4.2-5.4); White Blood Count 6.4 K/mm3 (4.4-11.0)
[2023-06-13 08:33] LABS: ALB/GLOB Ratio 0.8 RATIO (0.9-2.4); AST(SGOT) 14 U/L (15-37); Alanine Aminotransfer ALT/SGPT 15 U/L (13-56); Albumin, Serum 2.7 g/dL (3.2-5.0); Alkaline Phosphatase 96 U/L (45-117); Anion Gap 6 (5-15); BUN 15 mg/dL (7-18); BUN/Creat Ratio 23.7 RATIO (10-20); Calcium,Total 8.6 mg/dL (8.5-10.1); Chloride 112 mmol/L (98-107); Creatinine, Serum 0.63 mg/dL (0.55-1.02); EST Glomerular Filtration Rate 99 mL/min (>60); Est Glom Filt Rate - Afr Amer 119 mL/min (>60); Estimated Creatinine Clearance 54.71 ml/min; Globulin 3.5 g/dL (2.2-4.2); Glucose 90 mg/dL (74-106); Potassium 3.7 mmol/L (3.5-5.1); Protein, Total 6.2 g/dL (6.4-8.2); Sodium Level 141 mmol/L (136-145)
[2023-06-13 09:10] VITALS: BP 141/81; PULSE 82; RESP 18; TEMP 37.1; O2SAT 99
[2023-06-13] MEDS: Multivitamins,Therapeutic Tablet 1 TABLET PO (09:12)
[2023-06-13] MEDS: Losartan Potassium 100 MG Tablet PO (09:12)
[2023-06-13] MEDS: Venlafaxine XR 75 MG Capsule PO (09:12)
[2023-06-13] MEDS: Enoxaparin 40 MG/0.4 ML Syringe SC (09:12)
--- NOTE | 2023-06-13 10:25 | PCM.PN.HOSP ---
Reason for Visit Reason for Visit: Diagnoses Diarrhea, unspecified (06/12/23) Objective Data Objective Data Vital Signs: Vital Signs Temp Pulse Resp BP Pulse Ox O2 Del Method 98.7 F 82 18 141/81 H 99 Room Air 06/13/23 09:10 06/13/23 09:10 06/13/23 09:10 06/13/23 09:10 06/13/23 09:10 06/13/23 09:10 Oxygen Delivery Method Room Air Weight: 175 lb 14.862 oz Body Mass Index (BMI) 26.0 Intake & Output: Intake and Output for Last 24 Hours 06/11/23 06/12/23 06/13/23 23:59 23:59 23:59 Intake Total 1000 / 1000 Balance 1000 / 1000 Lab / Micro Data 06/13/23 06:59 06/13/23 06:59 Labs: Laboratory Results - last 24 hr 06/12/23 12:30: WBC 6.8, RBC 4.19 L, Hgb 12.0, Hct 37.3, MCV 89.0, MCH 28.6, MCHC 32.2, RDW Std Deviation 41.6, RDW Coeff of Lizzy 12.9, Plt Count 404, MPV 9.0, Immature Gran % (Auto) 0.400, Neut % (Auto) 78.9 H, Lymph % (Auto) 12.3 L, [place] % (Auto) 7.7, Eos % (Auto) 0.4, Baso % (Auto) 0.3, Absolute Neuts (auto) 5.3, Absolute Lymphs (auto) 0.83, Nucleated RBC % 0, Sodium 138, Potassium 3.7, Chloride 108 H, Carbon Dioxide 25.0, Anion Gap 5, BUN 24 H, Creatinine 1.02, Est GFR (MDRD) Af Amer 69, Est GFR (MDRD) Non-Af 57 L, BUN/Creatinine Ratio 23.5 H, Glucose 117 H, Calcium 9.6, Phosphorus 3.8, Magnesium 2.3 06/12/23 14:05: Urine Color Yellow, Urine Clarity Sl. Cloudy, Urine pH 5.0, Ur Specific [place] 1.020, Urine Protein 100 H, Urine Glucose (UA) Normal, Urine Ketones 5 H, Urine Occult Blood 10 H, Urine Nitrite Negative, Urine Bilirubin Negative, Urine Urobilinogen 1 H, Ur Leukocyte Esterase 100 H, Urine RBC 0-5 SEEN, Urine WBC 10-25 SEEN, Ur Squamous Epith Cells 10-25 SEEN, Urine Bacteria 2+, Hyaline Casts 0-5 SEEN, Urine Mucus 0 SEEN 06/12/23 19:19: Procalcitonin 0.04 06/13/23 06:59: WBC 6.4, RBC 3.52 L, Hgb 10.1 L, Hct 31.5 L, MCV 89.5, MCH 28.7, MCHC 32.1, RDW Std Deviation 42.4, RDW Coeff of Lizzy 13.0, Plt Count 348, MPV 9.3, Immature Gran % (Auto) 0.500, Neut % (Auto) 64.9, Lymph % (Auto) 21.1, [place] % (Auto) 10.3 H, Eos % (Auto) 2.7, Baso % (Auto) 0.5, Absolute Neuts (auto) 4.2, Absolute Lymphs (auto) 1.35, Nucleated RBC % 0, Sodium 141, Potassium 3.7, Chloride 112 H, Carbon Dioxide 23.0, Anion Gap 6, BUN 15, Creatinine 0.63, Estim Creat Clear Calc 54.71, Est GFR (MDRD) Af Amer 119, Est GFR (MDRD) Non-Af 99, BUN/Creatinine Ratio 23.7 H, Glucose 90, Calcium 8.6, Total Bilirubin 0.40, AST 14 L, ALT 15, Alkaline Phosphatase 96, Total Protein 6.2 L, Albumin 2.7 L, Globulin 3.5, Albumin/Globulin Ratio 0.8 L Micro: Microbiology 06/12/23 18:48 Mucosa - Nasopharyngeal Respiratory Panel (PCR) - Final Physical Exam Narrative Seen and examined. Patient complained of diarrhea for 3 days. Patient's latest mostly liquid with some fecal content. Did not see any blood or mucus. Denies any change in the diet. Patient stool-based that hard to walk or move. Denies abdominal pain. Physical exam General: Alert, Oriented x3, Cooperative HEENT: Atraumatic, PERRLA, EOMI, Normocephalic Oral: No Gingival or Mucosal Lesions/ Ulcerations Neck: Supple, No JVD, Negative Carotid Bruits Lungs: Air entry diminished in bilateral lung bases. No crepitation/rhonchi Cardiovascular: Regular rate, Regular Rhythm, Normal S1, Normal S2, No murmurs Abdomen: Bowel Sounds Present, Soft, Non Tender, Non-Distended : No renal angle tenderness. No suprapubic tenderness. Extremities: No edema, Capillary Refill Less than 3 Seconds Skin: No rashes, No breakdown Musculoskeletal: No Tenderness to Palpation of Joints or Extremities Neurological: Cranial nerves II-XII grossly intact, DTR 2+/4. No acute focal neurological deficit. Psych/Mental Status: Normal Affect, Appropriate. Assessment & Plan Assessment/Plan (1) Diarrhea: PLAN: Plan The patient is a 68 y/o F with multiple comorbidities was admitted for multiple episodes of diarrhea feeling of generalized weakness for last 3 days. Denies abdominal pain. Not on antibiotics. She has chronic lower back pain with recent back surgery of hemilaminectomy in May 2023 by [facility]. #1. 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 Stool for enteric pathogen is negative. Stool for C. difficile negative negative for C. difficile PCR. Her diarrhea is improving and solidifying. She is unclear but said she might have IBS.Procalcitonin negative. Abdominal exam is benign with no tenderness/distention or guarding or rigidity. #2. Diarrhea as mentioned above, improving. #3. Chronic lumbar back pain with recent history of hemilaminectomy: Patient recently had back surgery in May 2023 outside and was on rehab at TCU and was discharged home on June 07, 2023. Usually gets around on wheeled walker but she felt too weak to get up. Encourage positional changes, PT/OT/case management consulted for discharge planning, maintain on fall precautions, continue gabapentin as well as patient home hydrocodone regimen. #4. Anxiety and depression: We will continue patient home venlafaxine regimen. #5. Tobacco Abuse: Encouraged cessation, inpatient consultation per RT, NR if desired. #6. Hypertension: Continue home regimen including losartan, PRN hydralazine. #7. Hyperlipidemia: We will continue patient on statin therapy. #8. DVT prophylaxis: Lovenox. #9. CODE status: Patient HCPOA is Phylicia Quiñonez her friend and living will is currently in place. Discussed CODE status at length including difference between FULL code, DNR-CCA and DNR-CC status. Following discussions about the differences in these status, requested Full Code status. Charges/Coding Visit Charges Inpatient E&M: 55732 Subs Hosp L2
--- NOTE | 2023-06-13 14:27 | CASEMGMT ---
Addendum entered by Praveena Sales 06/13/23 16:51: [facility] can accept pt 06/14. Pt is medically ready for DC. SW scheduled w/c transport through [place] for 1100. Pt to pay privately for transport. SW updated pt that [facility] is requesting two weeks of payment at admission as well as $20.32 for the [place] ride. PASRR completed. Plan: DC 06/14 to [facility], private pay, part B therapies, [place] transport Original Note: Social Work SW sent message to [facility] in [facility] requesting update. SW spoke with pt to follow up on DC plan status. Informed pt [facility] has not officially accepted yet. SW to update pt with outcome once known. SW inquired about how things were going at home and reason for hospitalization. Pt explained she was having bad diarrhea, poor appetite and felt herself getting weaker as a result. SW inquired if she had spoken to her PCP. Pt confirmed she called PCP first, then was instructed to call her most recent provider from her TCU/RU stay, then called Dr. Castle, whom recommended pt present to the ED noting she sounded weaker than at [place]. SW commended pt for contacting a provider for instruction. Inquired if there were any other issues at home. Pt expressed she felt there was an emotional component to being alone while she wasn't feeling well. Pt stated her BAYLEE did visit often, but still felt alone. SW discussed services like [facility], [facility] or a membership to [employer] for additional socialization. Pt denied stating, I dont feel I need that. Just 5-7 days at a facility to get stronger and then I will feel better . Pt stated she was interested in hiring a [employer]ATCH [employer]ER and MOW. SW agreed and offered to provide resources again. Pt agreed and appreciative. SW to keep pt updated on DC planning. Provided [place], [employer] and [employer] lists to pt. Plan: pending approval, private pay with part B therapies to [facility] Praveena Sales, [facility]
[2023-06-13 14:37] VITALS: BP 153/83; PULSE 76; RESP 18; TEMP 36.4; O2SAT 99
--- NOTE | 2023-06-13 16:23 | CASEMGMT ---
Spoke with?patient via phone to complete LYNN form. LYNN form explained to patient who voiced understanding. Original form placed in pt?s chart and copy provided to?patient. Kiki Cheng, Discharge Planning Asst
--- NOTE | 2023-06-13 18:08 | NURSING ---
per Saranya in lab, will try to run stool specimen ordered off of stool sent earlier
[2023-06-13 21:00] VITALS: BP 158/93; PULSE 73; RESP 16; TEMP 36.6; O2SAT 97
[2023-06-13] MEDS: Gabapentin 300 MG Capsule PO (21:15)
[2023-06-13] MEDS: Atorvastatin Calcium 40 MG Tablet PO (21:15)
[2023-06-13] MEDS: Acetaminophen 325 MG Tablet 650 MG PO (21:15)
[2023-06-14 02:04] VITALS: BP 148/91; PULSE 60; RESP 16; TEMP 36.6; O2SAT 97
[2023-06-14 03:22] VITALS: BMI 26.0
[2023-06-14] MEDS: Gabapentin 100 MG Capsule 200 MG PO (05:24)
[2023-06-14 07:34] LABS: Absolute Lymphocyte Count 1.19 X10^3/uL (0.83-4.51); Absolute Neutrophil Count 3.4 X10^3/uL (2.0-7.7); Basophil# 0.02 X10^3/uL; Basophil% 0.4 % (0-1); Eosinophil# 0.22 X10^3/uL; Eosinophils% 4.1 % (0-5); Hematocrit 32.9 % (37-47); Hemoglobin 10.7 g/dL (12.0-15.0); Lymphocyte # 1.19 X10^3/ul (0.83-4.51); Mean Corp Hgb Conc 32.5 g/dL (32-36); Mean Corpuscular Hgb 28.7 pg (27.0-32.0); Mean Corpuscular Volume 88.2 fL (81-99); Mean Platelet Vol. 9.3 fl (6.2-12.0); Monocyte# 0.58 X10^3/uL; Monocyte% 10.7 % (0-10); NRBC Flagged by Analyzer 0 % (0-5); Neutrophil # 3.38 X10^3/uL (2.7-7.7); Neutrophil % 62.4 % (47-70); Platelet Count 357 K/mm3 (150-450); RBC Distribution Width CV 13.1 % (11.6-14.6); RBC Distribution Width SD 42.3 fl (35.1-43.9); Red Blood Count 3.73 M/mm3 (4.2-5.4); White Blood Count 5.4 K/mm3 (4.4-11.0)
[2023-06-14 07:42] VITALS: O2SAT 95
[2023-06-14 08:07] LABS: Anion Gap 5 (5-15); BUN 16 mg/dL (7-18); BUN/Creat Ratio 23.8 RATIO (10-20); Chloride 111 mmol/L (98-107); Creatinine, Serum 0.67 mg/dL (0.55-1.02); EST Glomerular Filtration Rate 92 mL/min (>60); Est Glom Filt Rate - Afr Amer 112 mL/min (>60); Glucose 93 mg/dL (74-106); Sodium Level 141 mmol/L (136-145)
[2023-06-14 08:52] VITALS: BP 159/96; PULSE 69; RESP 18; TEMP 36.3; O2SAT 98
[2023-06-14] MEDS: Enoxaparin 40 MG/0.4 ML Syringe SC (08:55)
[2023-06-14] MEDS: Venlafaxine XR 75 MG Capsule PO (08:56)
[2023-06-14] MEDS: Multivitamins,Therapeutic Tablet 1 TABLET PO (08:56)
[2023-06-14] MEDS: Losartan Potassium 100 MG Tablet PO (08:56)
--- NOTE | 2023-06-14 10:08 | PCM.TXEXTCAR ---
Diet Diet Order/Speech Therapy: 06/12/23 21:10 Diet: Cardiac - Heart Healthy Food consistency:: Regular Liquid Consistency:: Regular/Thin Routine Orders/Code Status Suppository Type: Dulcolax 10mg Suppository Frequency: Daily PRN Code Status: Full Code Therapies Weight Bearing: Weight bearing as tolerated Extremity Affected:: Bilateral Lower Physical Therapy: Eval and Treat Occupational Therapy: Eval and Treat Speech Therapy: Eval and Treat Problem/Diagnosis (1) Diarrhea: Status: Acute Code(s): R19.7 - Diarrhea, unspecified Plan The patient is a 68 y/o F with multiple comorbidities was admitted for multiple episodes of diarrhea feeling of generalized weakness for last 3 days. Denies abdominal pain. Not on antibiotics. She has chronic lower back pain with recent back surgery of hemilaminectomy in May 2023 by [facility]. #1. 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 Stool for enteric pathogen is negative. Stool for C. difficile negative negative for C. difficile PCR. Her diarrhea is improving and solidifying. She is unclear but said she might have IBS.Procalcitonin negative. Abdominal exam is benign with no tenderness/distention or guarding or rigidity. #2. Diarrhea as mentioned above, improving. #3. Chronic lumbar back pain with recent history of hemilaminectomy: Patient recently had back surgery in May 2023 outside and was on rehab at TCU and was discharged home on June 07, 2023. Usually gets around on wheeled walker but she felt too weak to get up. Encourage positional changes, PT/OT/case management consulted for discharge planning, maintain on fall precautions, continue gabapentin as well as patient home hydrocodone regimen. #4. Anxiety and depression: We will continue patient home venlafaxine regimen. #5. Tobacco Abuse: Encouraged cessation, inpatient consultation per RT, NR if desired. #6. Hypertension: Continue home regimen including losartan, PRN hydralazine. #7. Hyperlipidemia: We will continue patient on statin therapy. #8. DVT prophylaxis: Lovenox. #9. CODE status: Patient HCPOA is Phylicia Quiñonez her friend and living will is currently in place. Discussed CODE status at length including difference between FULL code, DNR-CCA and DNR-CC status. Following discussions about the differences in these status, requested Full Code status. Allergies/Procedures Done in Hospital Allergies No Known Allergies Allergy (Verified 06/12/23 12:04) Type of Care/Length of Stay Estimated LOS: Convalescent Care Less Than 30 days Type of Care Needed: Intermediate Rehab Potential: Good Prognosis: Good Additional Orders/Day of Discharge Additional Orders: part B therapies Day of Discharge: 06/14/23 Discharge Plan Admission Admit Date/Time: 06/12/23 18:18 Primary Reason for Your Visit: Failure to thrive. Diarrhea resolved. Attending Provider: Adán Khalil Primary Care Provider: Donte Woodson NP Consulting Providers: Jeri Burns; Ken Lopez Discharge Orders/Prescriptions Prescriptions: Continued atorvastatin 40 mg tablet 40 mg PO QHS ergocalciferol (vitamin D2) 1,250 mcg (50,000 unit) capsule 50,000 unit PO QMONTH multivitamin Tablet 1 tab PO DAILY venlafaxine [Effexor XR] 75 mg capsule,extended release 24hr 75 mg PO DAILY losartan [Cozaar] 100 mg tablet 100 mg PO DAILY Qty: 1 0RF cyclobenzaprine 5 mg tablet 5 mg PO TID PRN (Reason: MUSCLE SPASMS) gabapentin 100 mg capsule 300 mg PO QHS Rx Instructions: TAKE TWO CAPSULES (200MG) BY MOUTH TWICE DAILY WELL THREE CAPSULES (300MG) AT BEDTIME. hydrocodone-acetaminophen 5-325 mg Tablet 1 - 2 tab PO Q6H PRN (Reason: PAIN ) Rx Instructions: TAKE ONE TABLET BY MOUTH EVERY 6 HOURS FOR A PAIN SCORE OF 3-6 AND TAKE TWO TABLETS FOR A PAIN SCORE >6 magnesium hydroxide 400 mg/5 mL Suspension 30 ml PO X1 PRN (Reason: CONSTIPATION ) gabapentin 100 mg Capsule 200 mg PO BID Rx Instructions: TAKE TWO CAPSULES (200MG) BY MOUTH TWICE DAILY WELL THREE CAPSULES (300MG) AT BEDTIME. Changed sennosides-docusate sodium [Stool Softener-Stimulant Laxat] 8.6-50 mg Tablet 2 tab PO BID PRN (Reason: STOOL SOFTENER) Qty: 120 0RF Referrals / Follow Up: Donte Woodson NP, [facility] [Primary Care Provider] - Disposition Disposition (needs filled in before D/C Order can be placed): NonSkilled NH/Intermed Care
--- NOTE | 2023-06-14 10:12 | DS.PCM_ITS ---
Providers Date of Admission: 06/12/23 Date of Discharge: 06/14/23 Primary Care Physician: Donte Woodson, AIRCRAFT MOTOR MECHANIC-C Reason For Visit: ADULT FTT, DIARRHEA Diagnosis Discharge Diagnosis (1) Diarrhea: Status: Acute Code(s): R19.7 - Diarrhea, unspecified Plan The patient is a 68 y/o F with multiple comorbidities was admitted for multiple episodes of diarrhea feeling of generalized weakness for last 3 days. Denies abdominal pain. Not on antibiotics. She has chronic lower back pain with recent back surgery of hemilaminectomy in May 2023 by [facility]. #1. Adult Failure to Thrive complicated by recent back surgery as mentioned below and diarrhea: [facility] Stool for enteric pathogen is negative. Stool for C. difficile negative negative for C. difficile PCR. Her diarrhea is improving and solidifying. She is unclear but said she might have IBS.Procalcitonin negative. Abdominal exam is benign with no tenderness/distention or guarding or rigidity. #2. Diarrhea as mentioned above, improving. 06/15: Diarrhea resolved.Enteric bacteriology panel negative. Diarrhea probably due to medication or food induced. #3. Chronic lumbar back pain with recent history of hemilaminectomy: Patient recently had back surgery in May 2023 outside and [facility] and was discharged home on June 07, 2023. Usually gets around on wheeled walker but she felt too weak to get up. Encourage positional changes, PT/OT/case management consulted for discharge planning, maintain on fall precautions, continue gabapentin as well as patient home hydrocodone regimen. #4. Anxiety and depression: We will continue patient home venlafaxine regimen. #5. Tobacco Abuse: Encouraged cessation, inpatient consultation per RT, NR if desired. #6. Hypertension: Continue home regimen including losartan, PRN hydralazine. #7. Hyperlipidemia: We will continue patient on statin therapy. #8. DVT prophylaxis: Lovenox. #9. CODE status: Patient POLO is Phylicia Quiñonez her friend and living will is currently in place. Discussed CODE status at length including difference between FULL code, DNR-CCA and DNR-CC status. Following discussions about the diffe rences in these status, requested Full Code status. Discharge medication reconciliation done. Discharge follow-up instructions completed. Discharge process discussed with the patient and all questions were answered to patient's satisfaction. Follow with PCP in 1 to 2 weeks Total time spent, exact 35 minutes on discharge meds reconciliation, examination, coordination of care with nurses and ancillary staff, review of imaging and blood test and discussion with the patient on follow-up inst ructions. Medications at Discharge Home Medications atorvastatin 40 mg tablet 40 mg PO QHS CHOLESTEROL 05/15/23 ergocalciferol (vitamin D2) 1,250 mcg (50,000 unit) capsule 50,000 unit PO QMONTH SUPPLEMENT 05/15/23 multivitamin 1 tab PO DAILY HEALTH MAINTENACE 05/15/23 venlafaxine 75 mg capsule,extended release 24 hr (Effexor XR) 75 mg PO DAILY DEPRESSION 05/15/23 losartan 100 mg tablet (Cozaar) 100 mg PO DAILY BLOOD PRESSURE #1 TAB 05/26/23 cyclobenzaprine 5 mg tablet 5 mg PO TID PRN MUSCLE SPASMS 06/12/23 gabapentin 100 mg capsule 200 mg PO BID NERVE PAIN 06/12/23 gabapentin 100 mg capsule 300 mg PO QHS NERVE PAIN 06/12/23 magnesium hydroxide 400 mg/5 mL oral suspension 30 ml PO X1 PRN CONSTIPATION 06/12/23 hydrocodone-acetaminophen 5-325mg 5mg-325mg 1 tab PO Q6H PRN pain 5 days #20 tabs 06/14/23 sennosides 8.6 mg-docusate sodium 50 mg tablet (Stool Softener-Stimulant Laxative) 2 tab PO BID PRN STOOL SOFTENER #120 tabs 06/14/23 Physical Exam Narrative Seen and examined. Diarrhea resolved. Stool consistency has solidified. Did not see any blood or mucus. Patient is hard to walk or move. Denies abdominal pain. Physical exam General: Alert, Oriented x3, Cooperative HEENT: Atraumatic, PERRLA, EOMI, Normocephalic Oral: No Gingival or Mucosal Lesions/ Ulcerations Neck: Supple, No JVD, Negative Carotid Bruits Lungs: Air entry diminished in bilateral lung bases. No crepitation/rhonchi Cardiovascular: Regular rate, Regular Rhythm, Normal S1, Normal S2, No murmurs Abdomen: Bowel Sounds Present, Soft, Non Tender, Non-Distended : No renal angle tenderness. No suprapubic tenderness. Extremities: No edema, Capillary Refill Less than 3 Seconds Skin: No rashes, No breakdown Musculoskeletal: No Tenderness to Palpation of Joints or Extremities Spine: Lumbar surgical spine incision has healed. No discharge. Mild restriction of lumbar spine movement. Neurological: Cranial nerves II-XII grossly intact, DTR 2+/4. No acute focal neurological deficit. Psych/Mental Status: Normal Affect, Appropriate. Weight / BMI Weight Weight: 175 lb 14.862 oz Body Mass Index (BMI) 26.0 ABG / Lab / Microbiology Data 06/14/23 06:45 06/14/23 06:45 Laboratory: Laboratory Results - last 24 hr 06/14/23 06:45: WBC 5.4, RBC 3.73 L, Hgb 10.7 L, Hct 32.9 L, MCV 88.2, MCH 28.7, MCHC 32.5, RDW Std Deviation 42.3, RDW Coeff of Lizzy 13.1, Plt Count 357, MPV 9.3, Immature Gran % (Auto) 0.400, Neut % (Auto) 62.4, Lymph % (Auto) 22.0, [place] % (Auto) 10.7 H, Eos % (Auto) 4.1, Baso % (Auto) 0.4, Absolute Neuts (auto) 3.4, Absolute Lymphs (auto) 1.19, Nucleated RBC % 0, Sodium 141, Potassium 4.0, Chloride 111 H, Carbon Dioxide 25.0, Anion Gap 5, BUN 16, Creatinine 0.67, Estim Creat Clear Calc 74.00, Est GFR (MDRD) Af Amer 112, Est GFR (MDRD) Non-Af 92, BUN/Creatinine Ratio 23.8 H, Glucose 93, Calcium 9.0 Microbiology: Microbiology 06/12/23 14:25 Urine, Clean Catch Urine Culture - Final Mixed Gram Pos & Gram Neg Org 06/13/23 11:10 Stool Enteric Bacteriology - Final 06/13/23 11:10 Stool Clostridioides difficile (PCR) - Final 06/12/23 18:48 Mucosa - Nasopharyngeal Respiratory Panel (PCR) - Final Meaningful Use Info Meaningful Use Diagnoses (Choose all that apply): None applicable Discharge Plan Admission Admit Date/Time: 06/12/23 18:18 Primary Reason for Your Visit: Failure to thrive. Diarrhea resolved. Attending Provider: Adán Khalil Primary Care Provider: Donte Woodson AIRCRAFT MOTOR MECHANIC Consulting Providers: Jeri Burns; Ken Lopez Discharge Orders/Prescriptions Prescriptions: Continued atorvastatin 40 mg tablet 40 mg PO QHS ergocalciferol (vitamin D2) 1,250 mcg (50,000 unit) capsule 50,000 unit PO QMONTH multivitamin Tablet 1 tab PO DAILY venlafaxine [Effexor XR] 75 mg capsule,extended release 24hr 75 mg PO DAILY losartan [Cozaar] 100 mg tablet 100 mg PO DAILY Qty: 1 0RF cyclobenzaprine 5 mg tablet 5 mg PO TID PRN (Reason: MUSCLE SPASMS) gabapentin 100 mg capsule 300 mg PO QHS Rx Instructions: TAKE TWO CAPSULES (200MG) BY MOUTH TWICE DAILY WELL THREE CAPSULES (300MG) AT BEDTIME. magnesium hydroxide 400 mg/5 mL Suspension 30 ml PO X1 PRN (Reason: CONSTIPATION ) gabapentin 100 mg Capsule 200 mg PO BID Rx Instructions: TAKE TWO CAPSULES (200MG) BY MOUTH TWICE DAILY WELL THREE CAPSULES (300MG) AT BEDTIME. Changed sennosides-docusate sodium [Stool Softener-Stimulant Laxat] 8.6-50 mg Tablet 2 tab PO BID PRN (Reason: STOOL SOFTENER) Qty: 120 0RF No Action hydrocodone-acetaminophen 5-325 mg tablet 1 tab PO Q6H PRN (Reason: pain) 5 Days Qty: 20 0RF Referrals / Follow Up: Donte Woodson NP, AIRCRA[employer] MOTOR MECHANIC-C [Primary Care Provider] - Disposition Disposition (needs filled in before D/C Order can be placed): NonSkilled NH/Intermed Care Charges/Coding Visit Charges Inpatient E&M: 18358 Disch Hosp >30min
--- NOTE | 2023-06-14 10:34 | CASEMGMT ---
Discharge Planning Discharge orders, signed med list, covid results, and transport time sent to [facility] via [facility]. Patient will be transported by [facility] at 11a. Kiki Cheng, Discharge Planning Asst.
--- NOTE | 2023-06-14 10:43 | PHA.DC_ITS ---
Pharmacy PA Med Reconciliation Pharmacy Service has performed discharge medication reconciliation for this patient. The patient's discharge medication list was reviewed for discrepancies and discrepancies were resolved. Medications at Discharge Home Medications atorvastatin 40 mg tablet 40 mg PO QHS CHOLESTEROL 05/15/23 ergocalciferol (vitamin D2) 1,250 mcg (50,000 unit) capsule 50,000 unit PO QMONTH SUPPLEMENT 05/15/23 multivitamin 1 tab PO DAILY HEALTH MAINTENACE 05/15/23 venlafaxine 75 mg capsule,extended release 24 hr (Effexor XR) 75 mg PO DAILY DEPRESSION 05/15/23 losartan 100 mg tablet (Cozaar) 100 mg PO DAILY BLOOD PRESSURE #1 TAB 05/26/23 cyclobenzaprine 5 mg tablet 5 mg PO TID PRN MUSCLE SPASMS 06/12/23 gabapentin 100 mg capsule 200 mg PO BID NERVE PAIN 06/12/23 gabapentin 100 mg capsule 300 mg PO QHS NERVE PAIN 06/12/23 hydrocodone-acetaminophen 5-325mg 5mg-325mg 1 - 2 tab PO Q6H PRN PAIN 06/12/23 magnesium hydroxide 400 mg/5 mL oral suspension 30 ml PO X1 PRN CONSTIPATION 06/12/23 sennosides 8.6 mg-docusate sodium 50 mg tablet (Stool Softener-Stimulant Laxat francisca) 2 tab PO BID PRN STOOL SOFTENER #120 tabs 06/14/23
--- NOTE | 2023-06-14 10:52 | CASEMGMT ---
Social Work SW met with pt and a family member in the room. Pt is aware that she will be discharging to [facility] today at 11am. All questions answered regarding discharge process and follow up care at [facility]. Pt concerned as she has appointment scheduled at [facility]. Phone call to [facility] PT and cancelled appointment. Pt can call and reschedule once home from [facility]. Pt updated and appreciative of information. DC environmental services assistant notified and will complete dc. Disposition: [facility], private pay. CHUY Vaughn
== END 2023-06-14 11:14 | disposition intermediate care facility (04) ==
LOC: ED 18:32 → MS3 21:02
PROVIDERS: Nurse Practitioner; Admitting Provider Family Medicine; Emergency Provider Emergency Medicine; PCP Nurse Practitioner Family; Visit Provider Internal Medicine
DX: R62.7 Adult failure to thrive (principal); R19.7 Diarrhea, unspecified; F41.9 Anxiety disorder, unspecified; F17.210 Nicotine dependence, cigarettes, uncomplicated; I10 Essential (primary) hypertension; E78.2 Mixed hyperlipidemia; R53.1 Weakness; R53.81 Other malaise; Z86.16 Personal history of COVID-19; K58.9 Irritable bowel syndrome, unspecified; K21.9 Gastro-esophageal reflux disease without esophagitis; Z79.899 Other long term (current) drug therapy; F32.A Depression, unspecified; E55.9 Vitamin D deficiency, unspecified
CPT/HCPCS: 36415; 80048; 80053; 81001; 83735; 84100; 84145; 85025; 87086; 87088; 87426; 87493; 87506; 87633; 94668; 96361; 96372; 96374; 96375; 97162; 97166; 99221; 99284; J7030; A4216; G0378; J2405

== ENCOUNTER → 2023-06-15 | Outpatient (REF) | payer MEDICARE, OTHER, SELFPAY ==
--- OUTSIDE RECORDS SUMMARY | 2023-06-15 04:56 | XMS RPT_ITS | CCD ---
Author Name Unknown Address [address] [place] [address] Organization [facility] Care Team Providers Care Event Management Consultant Name Role Phone REFERRING, MONTSE MANRIQUEZ Unavailable Unavailable NILECANDY Unavailable Unavailable NILE, CANDY Unavailable Unavailable NILE TOP TAPER MACHINE - COATER CARBON PAPER, CANDY [facility] TOP TAPER MACHINE - COATER CARBON PAPER, CANDY [place] Attending [facility] navailable NILE TOP TAPER MACHINE - COATER CARBON PAPER, ACNDY [facility] navailable NILE TOP TAPER MACHINE - COATER CARBON PAPER, CANDY [place] Attending [facility] navailable NILE TOP TAPER MACHINE - COATER CARBON PAPER, CANDY [facility] navailable NILE TOP TAPER MACHINE - COATER CARBON PAPER, CANDY [place] Attending [facility] navailable NILE TOP TAPER MACHINE - COATER CARBON PAPER, CANDY [facility] navailable NILE TOP TAPER MACHINE - COATER CARBON PAPER, CANDY [place] Attending [facility] navailable NILE TOP TAPER MACHINE - COATER CARBON PAPER, CANDY [facility] navailable FAHAD MENDEZ, DR WEBBER Attending Unavailabl e NILE TOP TAPER MACHINE - COATER CARBON PAPER, CANDY [facility] navailable NILE TOP TAPER MACHINE - COATER CARBON PAPER, CADNY [facility] Attending [facility] navailable NILE TOP TAPER MACHINE - COATER CARBON PAPER, CANDY [facility] navailable Allergies Allergy Classification Reported Allergen(s) Allergy Type Date of Onset Reaction(s) Facility (4 sources) Azithromycin; Translations: [azithromycin] Drug Allergy Headache (finding), Dizziness (finding) [facility] Work Phone: (4 sources) Cephalexin; Translations: [cephalexin] Drug Allergy Diarrhea (finding) [facility] Work Phone: Medications Current Medications Medication Drug Class(es) Dates Sig (Normalized) Sig (Original) atorvastatin 40 mg oral tablet (4 sources) HMG-CoA Reductase Inhibitor Start: 11-22-2022 atorvastatin 40 mg oral tablet Dose : 40 mg = 1 tab(s), Oral, qDay, # 90 tab(s), 1 Refill(s), Pharmacy: [id number], Hyperlipidemia LDL goal Start Date: 11/22/22 [...] Start: 03-21-2023 End: 03-22-2023 ambulatory CANDY DOWD TOP TAPER MACHINE - COATER CARBON PAPER Facility:[facility] Start: 03-21-2023 End: 03-21-2023 Patient encounter procedure CANDY DOWD TOP TAPER MACHINE - COATER CARBON PAPER [facility] Start: 03-13-2023 End: 03-14-2023 ambulatory CANDY DOWD TOP TAPER MACHINE - COATER CARBON PAPER Facility:[facility] Start: 11-15-2022 End: 11-16-2022 ambulatory CANDY DOWD TOP TAPER MACHINE - COATER CARBON PAPER Facility:[facility] Start: 11-14-2022 End: 11-14-[address] LAWANDA VÁSQUEZ MD Facility:[facility] Start: 06-28-2022 End: 06-29-2022 ambulatory CANDY DOWD TOP TAPER MACHINE - COATER CARBON PAPER Facility:[facility] Start: 06-28-2022 End: 06-28-2022 Patient encounter procedure CANDY DOWD TOP TAPER MACHINE - COATER CARBON PAPER [facility] Start: 05-04-2022 End: 05-05-2022 ambulatory CANDY Radford NILE TOP TAPER MACHINE - COATER CARBON PAPER Facility:[facility] Start: 05-04-2022 End: 05-04-2022 Patient encounter procedure CANDY DOWD TOP TAPER MACHINE - COATER CARBON PAPER [facility] Start: 04-22-2021 End: 04-22-2021 Patient encounter procedure CANDY DOWD TOP TAPER MACHINE - COATER CARBON PAPER [facility] Start: 12-08-2016 End: 12-09-2016 Ambulatory PHY WO ID REFERRING Facility:[facility] Procedures Date Procedure Procedure Detail Performing Clinician Start: 05-02-2017 Bone density scan SAI GEMMA DOWD TOP TAPER MACHINE - COATER CARBON PAPER Start: 06-05-2011 Colonoscopy CANDY TURNER TOP TAPER MACHINE - COATER CARBON PAPER Immunizations Immunization Date Immunization Notes Care Provider Fa cility 03-06-2023 influenza, high dose seasonal, preservative-free; Translations: [Fluad Quadrivalent PF ] CANDY DOWD TOP TAPER MACHINE - COATER CARBON PAPER [facility] 03-29-2022 influenza, high dose seasonal, preservative-free CANDY DOWD TOP TAPER MACHINE - COATER CARBON PAPER [facility] 05-11-2021 influenza, high dose seasonal, preservative-free; Translations: [Fluad Quadrivalent PF ] CANDY DOWD TOP TAPER MACHINE - COATER CARBON PAPER [facility] 04-08-2021 SARS-CoV-2 mRNA (tozinameran) vaccine CANDY DOWD TOP TAPER MACHINE - COATER CARBON PAPER [facility] Payers Date Payer Category Payer Medicare [id number] 2022 Unknown [id number] 2004 Unknown [id number] 1955 Unknown [id number] [id number] [id number] 1953 Unknown [id number] 2.16.8 [id number] 1953 Unknown [id number] 2.16.8 [id number] 1953 Unknown [id number] 2.16.8 [id number] 1953 Unknown [id number] 2.16.8 [id number] 1953 Unknown [id number] 2.16.8 [id number] Social History Date Type Detail Facility Start: 04-23-2019 Heavy tobacco smoker (f inding) [facility] Evaluation + Plan note Note Date & Type Note Facility Evaluation + Plan note Future Appointments Appointment Date:05/11/2021 09:00:00 AM Scheduled Provider:CANDY DOWD APRN, CNP Location:[facility] Appointment Type:PC OV Follow Up [facility] Evaluation + Plan note Laboratory Note Date & Type Note Facility Evaluation + Plan note Future Appointments Appointment Date:05/12/2022 10:20:00 AM Scheduled Provider:CANDY DOWD APRN, CNP Location:[facility] Appointment Type:PC OV Follow Up Future Scheduled TestsMicroalbumin Level Urine 02/09/22 [facility] Evaluation + Plan note Laboratory Note Date & Type Note Facility Evaluation + Plan note Future Appointments Appointment Date:11/10/2022 10:20:00 AM Scheduled Provider:CANDY DOWD APRN, CNP Location:[facility] Appointment Type:PC OV Follow Up Future Scheduled TestsLipid Profile 11/10/22Microalbumin Level Urine 02/09/22Microalbumin Level Urine 11/10/22Vitamin D Level 11/10/22Complete Metabolic Panel 11/10/22 [facility] Evaluation + Plan note Laboratory Note Date & Type Note Facility Evaluation + Plan note Future Appointments Appointment Date:05/09/2023 09:40:00 AM Scheduled Provider:CANDY DOWD APRN, CNP Location:[facility] Appointment Type:PC OV Follow Up Future Scheduled TestsComplete Blood Count 05/24/23Lipid Profile 05/24/23Albumin/Creatinine Ratio, Random Urine 05/24/23Vitamin D Level 05/24/23Complete Metabolic Panel 05/24/23 [facility] Hospital course Narrative Note Date & Type Note Facility Hospital course Narrative No data available for this section [facility] Discharge instructions Note Date & Type Note Facility Hospital Discharge instructions No data available for this section [facility] Progress note Note Date & Type Note Facility Progress note No data available for this section [facility] Summary Purpose Family History No Family History Records Found No data available for this section No Family History Records Found Advance Directives No Advanced Directives Records FoundNo Advanced Directives Records Found Additional Source Comments INFORMATION SOURCE (unrecogn ized section and content) DATE CREATED AUTHOR AUTHOR'S ORGANIZ ATION 04/06/2023 [facility] ([place]) Care Team (unrecognized sect ion and content) Care Team Personnel Name: CANDY DOWD APRN, CNP Position: P4 Advanced Practice Nurse Member Role: Primary Care Physician Address: Address: [address] [place] [address] Care Team Related Persons Name: NIDIA LEACH Care Team Personnel Name: CANDY DOWD APRN, CNP Position: P4 Advanced Practice Nurse Member Role: Primary Care Physician Address: Address: [address] [place] [address] Care Team Related Persons Name: NIDIA LEACH Patient Care team informatio n (unrecognized section and content) Care Team Personnel Name: CANDY DOWD APRN - WALDO Position: P4 Advanced Validation Specialist Member Role: Primary Care Physician Address: Address: [address] [place] [address]- Care Team Related Persons Name: NIDIA LEACH [...] BE BASED ON THE PRIMARY CLINICAL RECORDS. [facility] [employer] [facility] provides no warranty or guarantee of the accuracy or completeness of information in this document.
[2023-06-15 08:33] LABS: Absolute Lymphocyte Count 1.48 X10^3/uL (0.83-4.51); Absolute Neutrophil Count 3.6 X10^3/uL (2.0-7.7); Basophil# 0.02 X10^3/uL; Basophil% 0.3 % (0-1); Eosinophil# 0.15 X10^3/uL; Eosinophils% 2.6 % (0-5); Hematocrit 31.9 % (37-47); Hemoglobin 10.4 g/dL (12.0-15.0); Lymphocyte # 1.48 X10^3/ul (0.83-4.51); Lymphocyte % 25.2 % (19-41); Mean Corp Hgb Conc 32.6 g/dL (32-36); Mean Corpuscular Hgb 28.7 pg (27.0-32.0); Mean Corpuscular Volume 88.1 fL (81-99); Mean Platelet Vol. 9.5 fl (6.2-12.0); Monocyte# 0.65 X10^3/uL; Monocyte% 11.1 % (0-10); NRBC Flagged by Analyzer 0 % (0-5); Neutrophil # 3.56 X10^3/uL (2.7-7.7); Neutrophil % 60.5 % (47-70); Platelet Count 372 K/mm3 (150-450); RBC Distribution Width CV 13.2 % (11.6-14.6); RBC Distribution Width SD 42.2 fl (35.1-43.9); Red Blood Count 3.62 M/mm3 (4.2-5.4); White Blood Count 5.9 K/mm3 (4.4-11.0)
[2023-06-15 09:01] LABS: ALB/GLOB Ratio 0.7 RATIO (0.9-2.4); AST(SGOT) 13 U/L (15-37); Alanine Aminotransfer ALT/SGPT 15 U/L (13-56); Albumin, Serum 2.6 g/dL (3.2-5.0); Alkaline Phosphatase 97 U/L (45-117); Anion Gap 7 (5-15); BUN 16 mg/dL (7-18); BUN/Creat Ratio 21.6 RATIO (10-20); Calcium,Total 8.9 mg/dL (8.5-10.1); Chloride 110 mmol/L (98-107); Cholesterol 133 mg/dL (200); Creatinine, Serum 0.74 mg/dL (0.55-1.02); EST Glomerular Filtration Rate 82 mL/min (>60); Est Glom Filt Rate - Afr Amer 99 mL/min (>60); Globulin 3.9 g/dL (2.2-4.2); Glucose 85 mg/dL (74-106); High Density Lipoprotein 39 mg/dL; Potassium 4.1 mmol/L (3.5-5.1); Protein, Total 6.5 g/dL (6.4-8.2); Sodium Level 140 mmol/L (136-145); Triglycerides 114 mg/dL; Very Low Density Lipoprotein 23 mg/dL (5-40)
[2023-06-15 10:55] LABS: Vitamin D,25 Hydroxy 50.6 ng/mL
== END ==
LOC: OLS.WHLEAS 05:00
PROVIDERS: PCP Nurse Practitioner Family; Visit Provider Internal Medicine
DX: E78.5 Hyperlipidemia, unspecified (principal); E55.9 Vitamin D deficiency, unspecified; M54.16 Radiculopathy, lumbar region; F32.A Depression, unspecified
CPT/HCPCS: 36415; 80053; 80061; 82306; 85025

== ENCOUNTER → 2023-06-22 | Outpatient (REF) | payer MEDICARE, OTHER, SELFPAY ==
--- OUTSIDE RECORDS SUMMARY | 2023-06-22 04:22 | XMS RPT_ITS | CCD ---
Author Name Unknown Address [address] [place] [address] Organization [facility] Care Team Providers Care Auto Parker Name Role Phone REFERRING, MONTSE MANRIQUEZ Unavailable Unavailable NILECANDY Unavailable Unavailable NILE, CANDY Unavailable Unavailable NILE PLUNGER SCOOP OPERATOR - BUFFET ATTENDANT, CANDY [facility] NILE PLUNGER SCOOP OPERATOR - BUFFET ATTENDANT, CANDY Radford Attending U navailable NILE PLUNGER SCOOP OPERATOR - BUFFET ATTENDANT, CANDY [facility] NILE PLUNGER SCOOP OPERATOR - BUFFET ATTENDANT, CANDY Radford Attending U navailable NILE PLUNGER SCOOP OPERATOR - BUFFET ATTENDANT, CANDY [facility] NILE PLUNGER SCOOP OPERATOR - BUFFET ATTENDANT, CANDY Radford Attending U navailable NILE PLUNGER SCOOP OPERATOR - BUFFET ATTENDANT, CANDY [facility] NILE PLUNGER SCOOP OPERATOR - BUFFET ATTENDANT, CANDY Radford Attending U navailable NILE PLUNGER SCOOP OPERATOR - BUFFET ATTENDANT, CANDY [facility] navailable FAHAD MENDEZ, DR WEBBER Attending Unavailabl e NILE PLUNGER SCOOP OPERATOR - BUFFET ATTENDANT, CANDY [facility] NILE PLUNGER SCOOP OPERATOR - BUFFET ATTENDANT, CANDY Radford Attending U navailable NILE PLUNGER SCOOP OPERATOR - BUFFET ATTENDANT, CANDY [facility] Allergies Allergy Classification Reported Allergen(s) Allergy Type Date of Onset Reaction(s) Facility (4 sources) Azithromycin; Translations: [azithromycin] Drug Allergy Headache (finding), Dizziness (finding) [facility] Work Phone: (4 sources) Cephalexin; Translations: [cephalexin] Drug Allergy Diarrhea (finding) [facility] Work Phone: Medications Current Medications Medication Drug Class(es) Dates Sig (Normalized) Sig (Original) atorvastatin 40 mg oral tablet (4 sources) HMG-CoA Reductase Inhibitor Start: 11-22-2022 atorvastatin 40 mg oral tablet Dose : 40 mg = 1 tab(s), Oral, qDay, # 90 tab(s), 1 Refill(s), Pharmacy: [id number], Hyperlipidemia LDL goal Start Date: 11/22/22 [...] Start: 03-21-2023 End: 03-22-2023 ambulatory CANDY DOWD PLUNGER SCOOP OPERATOR - BUFFET ATTENDANT Facility:[facility] Start: 03-21-2023 End: 03-21-2023 Patient encounter procedure CANDY DOWD PLUNGER SCOOP OPERATOR - BUFFET ATTENDANT [facility] Start: 03-13-2023 End: 03-14-2023 ambulatory CANDY DOWD PLUNGER SCOOP OPERATOR - BUFFET ATTENDANT Facility:[facility] Start: 11-15-2022 End: 11-16-2022 ambulatory CANDY DOWD PLUNGER SCOOP OPERATOR - BUFFET ATTENDANT Facility:[facility] Start: 11-14-2022 End: 11-14-[address] LAWANDA VÁSQUEZ MD Facility:[facility] Start: 06-28-2022 End: 06-29-2022 ambulatory CANDY DOWD PLUNGER SCOOP OPERATOR - BUFFET ATTENDANT Facility:[facility] Start: 06-28-2022 End: 06-28-2022 Patient encounter procedure CANDY DOWD PLUNGER SCOOP OPERATOR - BUFFET ATTENDANT [facility] Start: 05-04-2022 End: 05-05-2022 ambulatory CANDY Radford NILE PLUNGER SCOOP OPERATOR - BUFFET ATTENDANT Facility:[facility] Start: 05-04-2022 End: 05-04-2022 Patient encounter procedure CANDY DOWD PLUNGER SCOOP OPERATOR - BUFFET ATTENDANT [facility] Start: 04-22-2021 End: 04-22-2021 Patient encounter procedure CANDY DOWD PLUNGER SCOOP OPERATOR - BUFFET ATTENDANT [facility] Start: 12-08-2016 End: 12-09-2016 Ambulatory PHY WO ID REFERRING Facility:[facility] Procedures Date Procedure Procedure Detail Performing Clinician Start: 05-02-2017 Bone density scan SAI GEMMA DOWD PLUNGER SCOOP OPERATOR - BUFFET ATTENDANT Start: 06-05-2011 Colonoscopy CANDY TURNER PLUNGER SCOOP OPERATOR - BUFFET ATTENDANT Immunizations Immunization Date Immunization Notes Care Provider Fa cility 03-06-2023 influenza, high dose seasonal, preservative-free; Translations: [Fluad Quadrivalent PF ] CANDY DOWD PLUNGER SCOOP OPERATOR - BUFFET ATTENDANT [facility] 03-29-2022 influenza, high dose seasonal, preservative-free CANDY DOWD PLUNGER SCOOP OPERATOR - BUFFET ATTENDANT [facility] 05-11-2021 influenza, high dose seasonal, preservative-free; Translations: [Fluad Quadrivalent PF ] CANDY DOWD PLUNGER SCOOP OPERATOR - BUFFET ATTENDANT [facility] 04-08-2021 SARS-CoV-2 mRNA (tozinameran) vaccine CANDY DOWD PLUNGER SCOOP OPERATOR - BUFFET ATTENDANT [facility] Payers Date Payer Category Payer Medicare [id number] 2022 Unknown [id number] 2004 Unknown [id number] 1955 Unknown [id number] [id number] 1955 Unknown [id number] 2.16.8 [id number] 1955 Unknown [id number] 2.16.8 [id number] 1953 Unknown [id number] 2.16.8 [id number] 1953 Unknown [id number] 2.16.8 [id number] 1955 Unknown [id number] 2.16.8 [id number] Social History Date Type Detail Facility Start: 04-23-2019 Heavy tobacco smoker (f inding) [facility] Evaluation + Plan note Note Date & Type Note Facility Evaluation + Plan note Future Appointments Appointment Date:05/11/2021 09:00:00 AM Scheduled Provider:CANDY DOWD APRN, CNP Location:[facility] Appointment Type:PC OV Follow Up [facility] Evaluation + Plan note Laboratory Note Date & Type Note Facility Evaluation + Plan note Future Appointments Appointment Date:05/12/2022 10:20:00 AM Scheduled Provider:CANDY DOWD APRN, CNP Location:[facility] Appointment Type:PC OV Follow Up Future Scheduled TestsMicroalbumin Level Urine 02/09/22 [facility] Evaluation + Plan note Laboratory Note Date & Type Note Facility Evaluation + Plan note Future Appointments Appointment Date:11/10/2022 10:20:00 AM Scheduled Provider:CANDY DOWD APRN, CNP Location:[facility] Appointment Type:PC OV Follow Up Future Scheduled TestsLipid Profile 11/10/22Microalbumin Level Urine 02/09/22Microalbumin Level Urine 11/10/22Vitamin D Level 11/10/22Complete Metabolic Panel 11/10/22 [facility] Evaluation + Plan note Laboratory Note Date & Type Note Facility Evaluation + Plan note Future Appointments Appointment Date:05/09/2023 09:40:00 AM Scheduled Provider:CANDY DOWD APRN, CNP Location:[facility] Appointment Type:PC OV Follow Up Future Scheduled TestsComplete Blood Count 05/24/23Lipid Profile 05/24/23Albumin/Creatinine Ratio, Random Urine 05/24/23Vitamin D Level 05/24/23Complete Metabolic Panel 05/24/23 [facility] Hospital course Narrative Note Date & Type Note Facility Hospital course Narrative No data available for this section [facility] Hospital Discharge instructions Note Date & Type Note Facility Hospital Discharge instructions No data available for this section [facility] Progress note Note Date & Type Note Facility Progress note No data available for this section [facility] Summary Purpose Family History No Family History Records Found No data available for this section No Family History Records Found Advance Directives No Advanced Directives Records FoundNo Advanced Directives Records Found Additional Source Comments INFORMATION SOURCE (unrecogn ized section and content) DATE CREATED AUTHOR AUTHOR'S ORGANIZ ATION 04/06/2023 [facility] ([place]) Care Team (unrecognized sect ion and content) Care Team Personnel Name: CANDY DOWD APRN, CNP Position: P4 Advanced Practice Nurse Member Role: Primary Care Physician Address: Address: [address] [place] [address] Care Team Related Persons Name: NIDIA LEACH Care Team Personnel Name: CANDY DOWD APRN, CNP Position: P4 Advanced Practice Nurse Member Role: Primary Care Physician Address: Address: [address] [place] [address] Care Team Related Persons Name: NIDIA LEACH Patient Care team informatio n (unrecognized section and content) Care Team Personnel Name: CANDY DOWD APRN - [place] Position: P4 Advanced Metal Box Maker Member Role: Primary Care Physician Address: Address: [address] [place] [address]- Care Team Related Persons Name: NIDIA LEACH [...] BE BASED ON THE PRIMARY CLINICAL RECORDS. [facility] [employer] [facility]. provides no warranty or guarantee of the accuracy or completeness of information in this document.
[2023-06-22 08:37] LABS: Absolute Lymphocyte Count 1.71 X10^3/uL (0.83-4.51); Absolute Neutrophil Count 2.6 X10^3/uL (2.0-7.7); Basophil# 0.03 X10^3/uL; Basophil% 0.6 % (0-1); Eosinophil# 0.17 X10^3/uL; Eosinophils% 3.3 % (0-5); Hematocrit 33.9 % (37-47); Hemoglobin 10.7 g/dL (12.0-15.0); Lymphocyte # 1.71 X10^3/ul (0.83-4.51); Lymphocyte % 33.5 % (19-41); Mean Corp Hgb Conc 31.6 g/dL (32-36); Mean Corpuscular Hgb 28.5 pg (27.0-32.0); Mean Corpuscular Volume 90.4 fL (81-99); Mean Platelet Vol. 9.9 fl (6.2-12.0); Monocyte# 0.63 X10^3/uL; Monocyte% 12.3 % (0-10); NRBC Flagged by Analyzer 0 % (0-5); Neutrophil # 2.55 X10^3/uL (2.7-7.7); Neutrophil % 49.9 % (47-70); Platelet Count 327 K/mm3 (150-450); RBC Distribution Width CV 13.2 % (11.6-14.6); RBC Distribution Width SD 43.4 fl (35.1-43.9); Red Blood Count 3.75 M/mm3 (4.2-5.4); White Blood Count 5.1 K/mm3 (4.4-11.0)
[2023-06-22 08:55] LABS: Anion Gap 4 (5-15); BUN 17 mg/dL (7-18); BUN/Creat Ratio 22.2 RATIO (10-20); Calcium,Total 9.1 mg/dL (8.5-10.1); Chloride 108 mmol/L (98-107); Creatinine, Serum 0.77 mg/dL (0.55-1.02); EST Glomerular Filtration Rate 79 mL/min (>60); Est Glom Filt Rate - Afr Amer 96 mL/min (>60); Glucose 88 mg/dL (74-106); Potassium 4.2 mmol/L (3.5-5.1); Sodium Level 138 mmol/L (136-145)
== END ==
LOC: OLS.WHLEAS 05:00
PROVIDERS: PCP Nurse Practitioner Family; Visit Provider Internal Medicine
DX: I10 Essential (primary) hypertension (principal); M54.16 Radiculopathy, lumbar region; K58.8 Other irritable bowel syndrome
CPT/HCPCS: 36415; 80048; 85025

== ENCOUNTER 2023-09-29 10:00 | Outpatient (RCR) | payer MEDICARE, OTHER, SELFPAY ==
--- NOTE | 2023-07-31 11:45 | HP.PTEVAL_ITS ---
Patient's Visit Information Visit Information Visit Information: FILIBERTO CORMIER is a 68 year old F referred to Physical Therapy by Dr. Ava Castle DO with a diagnosis of Decompressive Lumbar laminectomy 05/09/23. Date of Evaluation: 07/31/23 Physical Therapist: Sukhi Evans, PT, ATC Visit Plan Frequency: 2x /Week Duration: 4-6 Weeks Plan: B LE strengthening, LE stretching, core stab ex's, gait training, stair negotiation, nustep, and HEP Subjective Subjective: DOS: 05/09/23. Pt reports she had a lumbar laminectomy performed at that time. Pt reports she had severe LBP and R LE radiculopathy prior to her surgery. Pt reports she was in the [facility] for one week after surgery, then went to the rehab unit at the hospital for over a week staying in the rehab unit and TCU. Pt reports she went home at that time, but experienced a bowel issue and had to go to the ER and was then sent to [facility] for 10 days. Pt reports she has been home now for 5 weeks. No HEP at this time. Pt has been walking a lot and performing house chores such as cooking. Pt notes she has a bed up stairs at her house, and is able to negotiate her stairs one step at a time. Pt reports no LBP at this time, although she does have pain after sitting for a long period of time. No LE radiculopathy at this time. Pt notes she is glad she had the surgery at this time. Pt reports her pain ranges from 0-4/10 at this time. Pt reports she has a difficult time finding a comfortable position while trying to sleep at night. Pain LBP: Pain Intensity (Out of 10): 0 Pain Intensity Range: 4 Objective Objective: Neuro: B LE sensation is WNL to light touch. B patellar reflex= 2/3 ROM: Pt is significantly limited with L/S extension, and is moderately limited in all other planes at this time. MMT: B LE's are grossly rated at 4-/5 throughout Gait: Pt is able to ambulate 340 feet until needing to rest secondary to LE fatigue Balance/Special Test Scores Oswestry Low Back Score: 24 Goals Goal 1:: Decrease LBP x 50% to aid with sleep Goal Time Frame: 4-6 Weeks Goal 2:: Increase B LE strength x 1 grade to aid with stair negotiation Goal Time Frame: 4-6 Weeks Goal 3:: Pt will be able to ambulate greater than 1000 feet with LRD to aid with community ambulation Goal Time Frame: 4-6 Weeks Goal 4:: I with HEP Goal Time Frame: 4-6 Weeks Rehabilitation Potential Physical Therapy Diagnosis: Pt has LBP, LE weakness, and intolerance for prolonged ambulation secondary to L/S fusion Rehabilitation Potential: Good Anticipated Interventions Patient/Client Instruction: Educate patient on: Condition and Plan of Care For the Purpose of:: To improve self management Therapeutic Exercise to Include: Strength training, Endurance training, Postural training, Flexibilty training, Active ROM and Dynamic Lumbar Stabilization For the Purpose of:: To decrease pain, To increase ROM and To improve muscle performance and motor function Cryotherapy (ice pack, ice massage): Yes For the Purpose of:: To decrease pain Text: Thank you for the opportunity to evaluate your patient. For Medicare and Medicare HMO plans, please review the plan of care and approve it. It will need to be FAXED BACK to us at [phone] for Medicare purposes. For Medicare only, by signing this I certify the plan of care. Please let me know if there are questions or concerns regarding this plan of care. Physician Signature: Date:
--- NOTE | 2023-09-01 10:36 | HP.PTREVAL ---
Re-Evaluation Intro: Dr. Ava Castle, DO, It has been my pleasure to treat FILIBERTO CORMIER over the last 9 visits for Decompressive Lumbar laminectomy 05/09/23. Please see the progress note below for an update on the physical therapy plan of care! Subjective Subjective: I am getting better, but i am still very limited with house hold chores Objective Objective/Function: LBP ranges from 1-4/10 B LE MMT 4/5 throughout Pt is able to ambulate approximately 340 feet until needing to sit secondary to pain and fatigue Plan Plan Plan: Continue to progress with core and R LE strengthening at this time Balance/Gait/Functional tests Balance/Special Test Scores Oswestry Low Back Score: 16 Goals Goals Goal 1:: Decrease LBP x 50% to aid with sleep Goal Time Frame: 4-6 Weeks Goal Progress: Goal Met Goal 2:: Increase B LE strength x 1 grade to aid with stair negotiation Goal Time Frame: 4-6 Weeks Goal Progress: Progressing Goal 3:: Pt will be able to ambulate greater than 1000 feet with LRD to aid with community ambulation Goal Time Frame: 4-6 Weeks Goal Progress: Progressing Goal 4:: I with HEP Goal Time Frame: 4-6 Weeks Anticipated Interventions Anticipated Interventions Patient/Client Instruction: Educate patient on: Condition and Plan of Care For the Purpose of:: To improve self management Therapeutic Exercise to Include: Strength training, Endurance training, Postural training, Flexibilty training, Active ROM and Dynamic Lumbar Stabilization For the Purpose of:: To decrease pain, To increase ROM and To improve muscle performance and motor function Cryotherapy (ice pack, ice massage): Yes For the Purpose of:: To decrease pain Re-Evaluation Ending Re-evaluation ending: Please do not hesitate to contact me at [phone] by phone or if you have questions or concerns regarding this new plan of care! Sincerely, Sukhi Evans, PT, ATC
--- NOTE | 2024-01-09 10:04 | HP.PT.NRP ---
Patient Information Patient Information: FILIBERTO CORMIER was seen in my office for initial evaluation on 07/31/23. The following Plan of Care was established for this patient: POC Established Initial Frequency: 2x /Week Initial Duration: 4-6 Weeks Anticipated Interventions Patient/Client Instruction: Educate patient on: Condition and Plan of Care For the Purpose of:: To improve self management Therapeutic Exercise to Include: Strength training, Endurance training, Postural training, Flexibilty training, Active ROM and Dynamic Lumbar Stabilization For the Purpose of:: To decrease pain, To increase ROM and To improve muscle performance and motor function Cryotherapy (ice pack, ice massage): Yes For the Purpose of:: To decrease pain Last Seen Last Seen: This patient was last seen in our office . Pertinent comments regarding their Physical therapy will appear below: Pt was treated for 14 PT visits for low back pain through the date of 09/29/23. Pt has not returned through todays date and is discontinued at this time. At this point I will be discontinuing this patient from physical therapy. I would be happy to see this patient again in the future if found appropriate by the physician. Thank you! Sukhi Evans, PT, ATC Balance/Gait/Functional tests Balance/Special Test Scores Oswestry Low Back Score: 16
== END 2023-09-29 19:00 | disposition home or self-care (01) ==
LOC: PT 10:00
PROVIDERS: PCP Nurse Practitioner Family; Referring Provider Internal Medicine; Visit Provider Internal Medicine
DX: M96.1 Postlaminectomy syndrome, not elsewhere classified (principal)
CPT/HCPCS: 97110; 97161; 97164

== ENCOUNTER → 2023-10-20 | Outpatient (CLI) | payer MEDICARE, OTHER, SELFPAY ==
--- NOTE | 2023-10-20 14:17 | BI_ITS ---
MAMMOGRAPHY - BILATERAL DIAGNOSTIC REASON FOR EXAM: Female, 68 years old. Right breast lump. PERTINENT HISTORY: Non-contributory. TECHNIQUE: Digital bilateral breast mariano (3D mammographic acquisition) in the CC and MLO projections. 2-D mediolateral oblique (MLO) and craniocaudad (CC) views of both breasts were obtained. CAD: Full Field Digital Mammography with Computer Added Detection was performed. COMPARISON: Comparison is made with prior outside examination dated December 26, 2022. FINDINGS: Breast Composition: The breasts are heterogeneously dense, which may obscure small masses. There are no dominant masses or suspicious calcifications. No other significant abnormalities are identified. There has been no significant change since the prior study. BI/DIAG MAMM W/CAD, BILAT IMPRESSION: Negative diagnostic mammogram. With the patient''s history of a palpable lump in the inferior anterior medial aspect of the right breast, correlation with ultrasound is recommended. ASSESSMENT CATEGORY: BIRADS Category 0: Incomplete. Need additional imaging evaluation. A letter regarding these results will be sent to the patient by the facility within 30 days. Approximately 10% of breast cancers are not detected by mammography. A normal mammogram should not delay biopsy of a clinically suspicious abnormality. Electronically Signed: Yaniv Pitts MD at 15:04 EDT ,
--- NOTE | 2023-10-20 14:17 | US_ITS ---
STUDY: ULTRASOUND BREAST - RIGHT REASON FOR EXAM: Female, 68 years old. Palpable mass TECHNIQUE: Axial and longitudinal images of the RIGHT breast were performed with a high resolution ultrasound transducer. # OF IMAGES: 14 COMPARISON: Diagnostic mammogram earlier today FINDINGS: RIGHT Breast: Heterogeneous background echotexture. Multiple longitudinal and transverse ultrasound images of the inferior right breast in the area of the palpable abnormality do not demonstrate a discrete solid or cystic mass most consistent with normal breast parenchyma.: US/Breast Limited Unilateral IMPRESSION: Normal diagnostic mammogram and right breast ultrasound. However, biopsy of any palpable abnormality should be performed if clinically indicated. ASSESSMENT CATEGORY: BIRADS Category 1: Negative. A letter regarding these results will be sent to the patient by the facility within 30 days. Electronically Signed: Donte Tao MD at 11:16 EDT ,
== END | disposition home or self-care (01) ==
LOC: OPBI 14:15
PROVIDERS: PCP Nurse Practitioner Family; Referring Provider Nurse Practitioner Family; Visit Provider Nurse Practitioner Family
DX: R92.2 Inconclusive mammogram (principal); N63.10 Unspecified lump in the right breast, unspecified quadrant
CPT/HCPCS: 76642; 77062; 77066; G0279

== ENCOUNTER → 2024-08-19 | Outpatient (CLI) | payer MEDICARE, OTHER, SELFPAY ==
--- NOTE | 2024-08-19 12:17 | RAD_ITS ---
PROCEDURE: LUMBAR MYELOGRAM 08/19/2024 REASON FOR EXAM: LUMBAR BACK PAIN WITH RADICULOPAHTY Prior multilevel spinal fusion. TECHNIQUE: The procedure as well as the benefits and possible complications including infection and bleeding and headache were explained to the patient. Informed consent was obtained. The patient was in the prone position. The overlying skin was prepped and draped in usual sterile fashion. Following local anesthetic application and under direct fluoroscopic guidance, a lumbar puncture was performed at the L2-L3 level. Clear CSF was not visualized. 10 cc of Isovue M [address] scan will follow. Fluoroscopy time: 34 seconds 4 images were obtained. COMPARISON: None. FINDINGS: The patient is status post multilevel intrapedicular screw and urbano fixation. No evidence of nerve root impingement or spinal stenosis seen at this examination. The patient tolerated the procedure well. CT scan will follow. RAD/Lumbar Myelogram IMPRESSION: Successful lumbar puncture and myelogram. The patient tolerated the procedure well. CT we will follow. Reading Location: [facility]-
--- NOTE | 2024-08-19 12:17 | CT_ITS ---
PROCEDURE: SPINE LUMBAR WITH CONTRAST REASON FOR EXAM: BILATERAL LUMBAR RADICULOPATHY Prior multilevel laminectomy and fusion.. TECHNIQUE: Lumbar spine CT with intrathecal Isovue M 200 contrast. CONTRAST: Isovue M 200 VOLUME: 10mL One or more dose reduction techniques were used (e.g., Automated exposure control, adjustment of the mA and/or kV according to patient size, use of iterative reconstruction technique). RADIATION DOSE SUMMARY: CTDlvol: 15.14 mGy DLP: 531.77 mGycm COMPARISON: None. FINDINGS: Vertebrae: Normal lumbar vertebral body heights. No evidence of fracture. No spondylolysis. Alignment: Normal lumbar lordosis. L1-2: Marked degree of disc space narrowing. Prior laminectomy and intrapedicular screw fixation. There is evidence of facet joint osteoarthritis and hypertrophy with bilateral neural foraminal stenosis right greater than left and mild degree of central canal stenosis due to hypertrophy of the ligamentum flava and minimal retrolisthesis of L1 on L2. L2-3: Moderate degree of disc space narrowing. Prior laminectomy and fusion. No significant stenosis seen. L3-4: Mild degree of retrolisthesis of L3 on L4. Facet joint osteoarthritis and hypertrophy. Bilateral neural foraminal stenosis worse on the left side. L4-5: Moderate degree of disc space narrowing. Prior laminectomy and intrapedicular screw fixation. No significant stenosis seen. L5-S1: Marked degree of disc space narrowing. Spondylosis. Marked degree of bilateral neural foraminal and central canal stenosis. Sacrum: Unremarkable CT/Spine Lumbar WITH Contrast IMPRESSION: Multilevel laminectomy and fusion as described. Spinal stenosis at multiple le vels worse at the L5-S1 level. Reading Location: [place] [address]
[2024-08-19 12:32] VITALS: BP 184/108; PULSE 59; RESP 18; O2SAT 97; BMI 25.1
[2024-08-19 12:39] LABS: Absolute Lymphocyte Count 1.85 X10^3/uL (0.83-4.51); Absolute Neutrophil Count 4.8 X10^3/uL (2.0-7.7); Basophil# 0.02 X10^3/uL; Basophil% 0.3 % (0-1); Eosinophil# 0.07 X10^3/uL; Hematocrit 42.6 % (37-47); Lymphocyte # 1.85 X10^3/ul (0.83-4.51); Lymphocyte % 25.2 % (19-41); Mean Corp Hgb Conc 32.9 g/dL (32-36); Mean Corpuscular Hgb 30.6 pg (27.0-32.0); Mean Corpuscular Volume 93.2 fL (81-99); Mean Platelet Vol. 10.4 fl (6.2-12.0); Monocyte# 0.59 X10^3/uL; NRBC Flagged by Analyzer 0 % (0-5); Neutrophil # 4.78 X10^3/uL (2.7-7.7); Neutrophil % 65.1 % (47-70); Platelet Count 275 K/mm3 (150-450); RBC Distribution Width CV 14.3 % (11.6-14.6); RBC Distribution Width SD 49.1 fl (35.1-43.9); Red Blood Count 4.57 M/mm3 (4.2-5.4); White Blood Count 7.3 K/mm3 (4.4-11.0)
[2024-08-19 12:51] LABS: Prothrombin Time (Protime)PT. 13.1 SECONDS (11.7-14.9)
[2024-08-19 12:52] LABS: Partial Thromboplast Time 23.6 Seconds (24.1-36.2)
[2024-08-19] MEDS: Lidocaine 2% (5ml sdv) 5 ML VIAL.MPF INFILT (13:20)
[2024-08-19 13:35] VITALS: BP 198/107; PULSE 65; RESP 18; O2SAT 99
[2024-08-19 14:24] VITALS: BP 184/108; BP 186/98; PULSE 64; RESP 18; O2SAT 97
== END | disposition home or self-care (01) ==
PROVIDERS: Radiology Diagnostic Radiology; PCP Nurse Practitioner Family; Referring Provider Physician Assistant; Visit Provider Physician Assistant
DX: Z01.818 Encounter for other preprocedural examination (principal); M54.16 Radiculopathy, lumbar region; Z98.890 Other specified postprocedural states
CPT/HCPCS: 36415; 62304; 72132; 85025; 85610; 85730

== ENCOUNTER 2025-04-22 08:47 | Inpatient (IN) | payer MEDICARE, OTHER, SELFPAY ==
[2025-04-22] VITALS (24 sets, daily range): BP systolic 87–170; BP diastolic 62–108; PULSE 52–83; RESP 12–24; TEMP -17.7–36.8; O2SAT 92–100; BMI 26.7
--- NOTE | 2025-04-22 08:51 | EDS_ITS ---
HPI History of Present Illness Chief Complaint: Chest Pain Detail of Chief Complaint: Chest pressure that awoke patient from sleep at 0530 Informant: patient and EMS Onset/Context/Timing Onset: Today and Hours Context: Sudden Onset Timing: Continuous Quality: Pressure Location: Midsternal Current Severity: Moderate Maximum Severity: Severe Worsened by: Nothing Relieved by: Nothing Associated Symptoms Associated Symptoms: chest pain Narrative Narrative: Patient is a 70-year-old woman. She has a history of anemia due to blood loss, debility, hypertension, hyperlipidemia who arrived by ambulance. She was awakened from sleep at 0530 with substernal chest pressure. She was short of breath and sick to her stomach. Prehospital EKG reveals an acute anterolateral ST elevation AK. She does have premature ventricular beats noted as well. Prehospital blood pressures revealed no hemodynamic instability. She has no other complaints. Prior similar symptoms: No Recent Illness/Hospitalization: No PFSH PFS Medical History COVID Migraine Basal cell carcinoma IBS (irritable bowel syndrome) Smokes cigarettes Vitamin D deficiency Anxiety Mixed hyperlipidemia Essential hypertension Chronic back pain Scoliosis Endometriosis Smoker GERD (gastroesophageal reflux disease) Home Medications ?Medication ?Instructions ?Recorded ?Last Taken ?Type atorvastatin 40 mg tablet 40 mg PO QHS CHOLESTEROL 04/27 Unknown History ergocalciferol (vitamin D2) 1,250 50,000 unit PO QMONT H SUPPLEMENT 05/15/23 05/09/23 History mcg (50,000 unit) capsule venlafaxine 75 mg capsule,extended 75 mg PO DAILY DEPR ESSION 05/15/23 Unknown History release 24 hr (Effexor XR) losartan 100 mg tablet (Cozaar) 100 mg PO DAILY BLOOD PRESSURE #1 05/26/23 Unknown Rx TAB cyclobenzaprine 5 mg tablet 5 mg PO TID PRN MUSCLE SPA SMS 06/12/23 Unknown History magnesium hydroxide 400 mg/5 mL 30 ml PO X1 PRN CONSTI PATION 06/12/23 Unknown History oral suspension Allergy/AdvReac Type Severity Reaction Status Date / Time No Known Allergies Allergy Verified 06/12/23 12:04 Family History Father Heart failure Mother Kidney disease Alzheimer disease Surgical History History of hemilaminectomy Cataract extraction status S/P ORIF (open reduction internal fixation) fracture History of tonsillectomy History of appendectomy Social History household members: none current occupational status: retired current occupation: Worked at [employer] pets and animals: Yes pets and animals: cat(s) and dog(s) Smoking Status: Current some day smoker tobacco type: cigarettes quit status: considering quitting alcohol intake: current alcohol intake frequency: 0-2 drinks per day Alcohol type: beer substance use type: does not use do you feel safe at home: Yes ROS ROS ED Review of Systems ROS Unobtainable: other Details: STEMI, rapid exam/to [facility] Cardiovascular Cardiovascular: Reports chest pain and paroxysmal nocturnal dyspnea; Denies orthopnea Respiratory/Chest Respiratory/Chest: Reports dyspnea and paroxysmal nocturnal dyspnea; Denies orthopnea Gastrointestinal Gastrointestinal: Reports nausea EXAM Physical Exam Narrative Exam Narrative: Patient's initial blood pressure was 120 systolic. Repeat blood pressure 178/108. Heart rate is approximately 75. She is no respiratory distress. She appears pale. Const Positive well nourished and well developed General Appearance ED: well developed and pallor HEENT normocephalic and atraumatic Eyes PERRL and EOMs intact bilaterally General Eye ED: Negative for pale conjunctiva or scleral icterus Neck full ROM, no lymphadenopathy and no JVD Resp Resp Narrative: Lungs are clear to auscultation with symmetric breath sounds. Cardio regular rate, regular rhythm, S1 normal heart sound, S2 normal heart sound and no murmurs GI non-tender and non-distended Palpation: soft Extremity Extremity Narrative: Lower extremity exam. Normal. There is no mottling or cyanosis. Neuro oriented x3 and CN's II-XII intact bilaterally Sensorium / Orientation: alert Psych Mood & Affect: depressed Skin General Skin Exam: pallor MDM MDM MDM Narrative Medical decision making narrative: Patient with a prehospital ST elevation AK. This was called. Spoke with Dr. Baker and prior to patient's arrival. He was made aware of the EKG findings. EKG was sent to him. Verbal order to squad to administer Brilinta and heparin since they had already administered 4 baby aspirin. EKG Initial EKG: Attestation: I personally reviewed and interpreted this EKG as follows: Interpretation: Sinus Rhythm (Interpreted by me at 0828. Rate is 78. NV interval is 136 ms. QRS duration 396 ms. [place] is normal. Consistent with a acute ST elevation in anterior lateral AK.) Management Discussion w/another healthcare provider: Hospitalist (Hospitalist was paged to notify patient went to the [facility].) and [place] Department Supervisor (Spoke to policyholder information clerk and informed of EKG findings and reason for STEMI alert.) Treatment and Re-Evaluation Narrative: Orders for aspirin, heparin and Brilinta prehospital. Critical Care Time Critical Care Time: Yes Critical care time (excluding procedures): 30-74 minutes (15 minutes), Discussing w/Patient &/or Family/Application Security Engineer (To inform patient she was having a heart attack, obtain consent for emergent cardiac catheterization), Discussing w/Consultants (Hospitalist and policyholder information clerk) and Arranging Admission or Transfer Discharge Plan Dx/Rx/DC Orders Clinical Impression: Acute AK, anterolateral wall, initial episode of care, Hypertension, Dyslipidemia, Premature ventricular beats Disposition Disposition: Acute Care Hospital [facility]
--- NOTE | 2025-04-22 08:52 | ED.RN ---
Alexis Mackey notified of pt arrival.
[2025-04-22 08:58] LABS: Hematocrit 42.0 % (37-47); Hemoglobin 14.1 g/dL (12.0-15.0); Immature Granulocytes Count 0.040 X10^3/uL (0.0-0.0); Mean Corp Hgb Conc 33.6 g/dL (32-36); Mean Corpuscular Volume 91.9 fL (81-99); Mean Platelet Vol. 10.0 fl (6.2-12.0); NRBC Flagged by Analyzer 0 % (0-5); Platelet Count 316 K/mm3 (150-450); RBC Distribution Width CV 12.0 % (11.6-14.6); RBC Distribution Width SD 40.9 fl (35.1-43.9); Red Blood Count 4.57 M/mm3 (4.2-5.4); White Blood Count 9.2 K/mm3 (4.4-11.0)
[2025-04-22 09:08] LABS: Prothrombin Time (Protime)PT. 13.6 SECONDS (11.7-14.9)
[2025-04-22 09:09] LABS: Partial Thromboplast Time 26.8 Seconds (24.1-36.2)
[2025-04-22 09:15] LABS: Anion Gap 14 (5-15); BUN 21 mg/dL (4-19); BUN/Creat Ratio 24.2 RATIO (10-20); Calcium,Total 9.4 mg/dL (7.6-11.0); Carbon Dioxide 21.6 mmol/L (21.0-32.0); Chloride 104 mmol/L (98-108); Glucose 147 mg/dL (70-99); Potassium 4.7 mmol/L (3.3-5.1)
[2025-04-22 09:17] LABS: Troponin T High Sensitivity 156 ng/L (<=14)
--- OUTSIDE RECORDS SUMMARY | 2025-04-22 09:48 | XMS RPT_ITS | CCD ---
Author Organization [facility] Care Team Providers Care Pony Rougher Name Role Phone REFERRING, MONTSE WO ID Unavailable Unavailable CHINTAN, CANDY Unavailable Unavailable CHINTAN, CANDY Unavailable Unavailable CHINTAN CHACKO - WALDO, CANDY Radford Primary Care Phys ician Chintan WASH OIL PUMP OPERATOR HELPER, WASH OIL PUMP OPERATOR HELPER-C Candy Schwarz Primary Care Pr ovider Dr. Mavis Vásquez Admit Provider Dr. Mavis Vásquez Other Provider Dr. Evonne Bishop Attending Provider [phone] Evonne Bishop Other Provider Dr. Kwan Lai Other Provider Unavailable Dr. Ava Castle Attending Provider Dr. Ava Castle Other Provider Dr. Larry Kent Chi Admit Provider Dr. Larry Kent Chi Other Provider Dr. Ash Geller Emergency Provider Dr. Jeri Burns Attending Provider Dr. Jeri Burns Admit Provider Dr. Jeri Burns Other Provider Dr. Adán Khalil Attending Provider Dr. Adán Khalil Other Provider Dr. Ken Lopez Other Provider [phone] FAHAD MENDEZ, DR WEBBER Attending Unavailabl e CHINTAN DEVELOPMENT SYSTEM EFFICIENCY MANAGER - CANDY HAAS Primary Care U navailable [facility] [employer]ELOP[employer] SYSTEM EFFICIENCY MANAGER - PUBLIC SAFETY DISPATCHER, CANDY Radford Attending U navailable [facility]ELOP[employer] SYSTEM EFFICIENCY MANAGER - PUBLIC SAFETY DISPATCHER, CANDY Radford Primary Care U navailable [facility]ELOP[employer] SYSTEM EFFICIENCY MANAGER - PUBLIC SAFETY DISPATCHER, ACNDY Radford Attending U navailable [facility]ELOP[employer] SYSTEM EFFICIENCY MANAGER - PUBLIC SAFETY DISPATCHER, CANDY Radford Primary Care U navailable [employer]INTAN DEVELOPMENT SYSTEM EFFICIENCY MANAGER - PUBLIC SAFETY DISPATCHER, CANDY Radford Attending U navailable CHINTAN DEVELOPMENT SYSTEM EFFICIENCY MANAGER - PUBLIC SAFETY DISPATCHER, CANDY Radford Primary Care U navailable CHINTAN [employer]ELOP[employer] SYSTEM EFFICIENCY MANAGER - PUBLIC SAFETY DISPATCHER, CANDY Radford Attending U navailable CHINTAN [employer]ELOP[employer] SYSTEM EFFICIENCY MANAGER - PUBLIC SAFETY DISPATCHER, CANDY Radford Primary Care U navailable HELIO CASTILLO Attending Unavailab le [facility] [employer]EL[employer] SYSTEM EFFICIENCY MANAGER - PUBLIC SAFETY DISPATCHER, CANDY Radford Primary Care U navailable [employer]EL[employer] SYSTEM EFFICIENCY MANAGER - PUBLIC SAFETY DISPATCHER, CANDY Radford Primary Care U navailable HELIO CASTILLO Attending Unavailab le Chintan WASH OIL PUMP OPERATOR HELPER, Candy Schwarz Primary Care Unav ailYaniv Escobar Consulting Unavailable Danielle Castillo Referring Unavailable Jonathan, Danielle Perkins Attending Unavailable [place] WASH OIL PUMP OPERATOR HELPER, Candy Schwarz Primary Care Unav ailable Sementi, Ava Knox Referring Unavaila ble Sementi, Ava Knox Attending Unavaila ble Chintan WASH OIL PUMP OPERATOR HELPER, Candy Schwarz Primary Care Unav ailable Chintan WASH OIL PUMP OPERATOR HELPER, Candy Schwarz Referring Unav ailable [place] WASH OIL PUMP OPERATOR HELPER, Candy Schwarz Attending Unav ailable Chintan WASH OIL PUMP OPERATOR HELPER-C, Candy Schwarz Primary Care Provi melissa Danielle Castillo PA-C Attending Provider Danielle Castillo PA-C Referring Provider Gisselle MENDEZ, Dr. Purvis Other Provider Unava ilable CHINTAN DEVELOPMENT SYSTEM EFFICIENCY MANAGER - WALDO, CANDY Radford Attending U navailable CHINTAN DEVELOPMENT SYSTEM EFFICIENCY MANAGER - PUBLIC SAFETY DISPATCHER, CANDY Radford Primary Care U leonid PENA MD, MAUIRZIO Mcallister Attending Unavailable CHINTAN DEVELOPMENT SYSTEM EFFICIENCY MANAGER - PUBLIC SAFETY DISPATCHER, CNADY Radford Primary Care U navailable [place] DEVELOPMENT SYSTEM EFFICIENCY MANAGER - PUBLIC SAFETY DISPATCHER, CANDY Radford Primary Care U leonid PENA MD, MAURIZIO Mcallister Attending Unavailable CHINTAN DEVELOPMENT SYSTEM EFFICIENCY MANAGER - PUBLIC SAFETY DISPATCHER, CANDY Radford Primary Care U navailable CHINTAN [employer]ELOP[employer] SYSTEM EFFICIENCY MANAGER - PUBLIC SAFETY DISPATCHER, CANDY Radford Attending U MAURIZIO Camilo MD Attending Unavailable [facility]AN DEVELOPMENT SYSTEM EFFICIENCY MANAGER - PUBLIC SAFETY DISPATCHER, CANDY [facility]ford [facility] DEVELOPMENT SYSTEM EFFICIENCY MANAGER - PUBLIC SAFETY DISPATCHER, CANDY Radford [facility]AN DEVELOPMENT SYSTEM EFFICIENCY MANAGER - PUBLIC SAFETY DISPATCHER, CANDY Radford Primary Care U navailable CHINTAN DEVELOPMENT SYSTEM EFFICIENCY MANAGER - PUBLIC SAFETY DISPATCHER, CANDY Radford [facility]AN DEVELOPMENT SYSTEM EFFICIENCY MANAGER - PUBLIC SAFETY DISPATCHER, CANDY Radford [facility]AN DEVELOPMENT SYSTEM EFFICIENCY MANAGER - PUBLIC SAFETY DISPATCHER, CANDY Radford Attending [facility] CHINTAN DEVELOPMENT SYSTEM EFFICIENCY MANAGER - PUBLIC SAFETY DISPATCHER, CANDY Radford [facility]AN DEVELOPMENT SYSTEM EFFICIENCY MANAGER - PUBLIC SAFETY DISPATCHER, CANDY Radford Attending [facility] CH[facility]AN DEVELOPMENT SYSTEM EFFICIENCY MANAGER - PUBLIC SAFETY DISPATCHER, CANDY Radford [facility] CHINTAN DEVELOPMENT SYSTEM EFFICIENCY MANAGER - PUBLIC SAFETY DISPATCHER, CANDY Radford [facility]AN DEVELOPMENT SYSTEM EFFICIENCY MANAGER - PUBLIC SAFETY DISPATCHER, CANDY Radford Attending U leonid Unavailable Unavailable Unavailable Allergies Allergy Classification Reported Allergen(s) Allergy Type Date of Onset Reaction(s) Facility (14 sources) Azithromycin; Translations: [azithromycin] Drug Allergy Headache (finding), Dizziness (finding) [facility] (14 sources) Cephalexin; Translations: [cephalexin] Drug Allergy Diarrhea (finding) [facility] (8 sources) gabapentin; Translations: [gabapentin] Drug Allergy Nausea (finding) [facility] PM Medications Current Medications Medication Drug Class(es) Dates Sig (Normalized) Sig (Original) atorvastatin 40 mg oral tablet (16 sources) HMG-CoA Reductase Inhibitor Start: 12-10-2024 atorvastatin 40 mg oral tablet Dose : 40 mg = 1 tab(s), Oral, qDay, # 90 tab(s), 1 Refill(s), Pharmacy: [id number], Hyperlipidemia LDL goal Start Date: 12/10/24 Status: Ordered Medication Dispense Status: Completed Quantity: 90.0 Unit: tab(s) Total Allowed Fills: 2 Fills Dispensed: 0 Indications: Pure hyperglyceridemia; Hyperlipidemia, unspecified; Start: 05-05-2023 atorvastatin 4 0 mg oral tablet Dose : 40 mg = 1 tab(s), Oral, qDay, # 90 tab(s), 1 Refill(s), Pharmacy: [facility], Hyperlipidemia LDL goal Start Date: 04/30/24 Status: Ordered Quantity: 90.0 Unit: tab(s) Repeat number: 2 Indications: Pure hyperglyceridemia; Hyperlipidemia, unspecified; Start: 11-22-2022 atorvastatin 4 0 mg oral tablet Dose : 40 mg = 1 tab(s), Oral, qDay, # 90 tab(s), 1 Refill(s), Pharmacy: [facility], Hyperlipidemia LDL goal Start Date: 11/22/22 Status: Ordered Start: 05-12-2022 atorvastatin 4 0 mg oral tablet Dose : 40 mg = 1 tab(s), Oral, qDay, # 90 tab(s), 1 Refill(s), Pharmacy: [facility], Hyperlipidemia LDL goal Start Date: 05/12/22 Status: Ordered Start: 11-09-2021 End: 05-08-2022 atorvastatin 20 mg oral tabl et Dose : 20 mg = 1 tab(s), Oral, qDay, # 90 tab(s), 1 Refill(s), Pharmacy: [facility], Hyperlipidemia LDL goal Start Date: 11/09/21 Stop Date: 05/08/22 Status: Ordered Start: 10-20-2020 End: 07-17-2021 atorvastatin 20 mg oral tabl et Dose : 20 mg = 1 tab(s), Oral, qDay, # 90 tab(s), 2 Refill(s), Pharmacy: [facility], Hyperlipidemia LDL goal Start Date: 10/20/20 Stop Date: 07/17/21 Status: Ordered calcium carbonate 600 MG / ergocalciferol 200 UNT Oral Capsule (8 sources) Provitamin D2 Compound Start: 04-23-2019 take 1 capsule by mouth once daily calcium-vitamin D 600 mg-200 intl units oral capsule Dose = 1 cap(s), Oral, Daily, 0 Refill(s) Start Date: 04/23/19 Status: Ordered Repeat number: 1 Start: 04-23-2019 take 1 capsule by [facility] once daily calcium-vitamin D 600 mg-200 intl units oral capsule Dose = 1 cap(s), Oral, Daily, 0 Refill(s) Start Date: 04/23/19 Status: Ordered DME MISCellaneous (3 sources) Start: 11-20-2020 DME MISCellaneous See Instructions, Automated BP Cuff, # 1 EA, 0 Refill(s), HTN, goal below 140/90 Holosystolic murmur, 08/08, 82.2 Start Date: 11/20/20 Status: Ordered dorzolamide 20 mg/ml / timolol 5 mg/ml ophthalmic solution (2 sources) Carbonic Anhydrase Inhibitor, beta-Adrenergic Sean Start: 12-10-2024 dorzolamide hydrochloride-timolo l maleate 2.23%-0.68% (2%-0.5% base) ophthalmic solution 0 Refill(s) Start Date: 12/10/24 Status: Ordered Medication Dispense Status: Completed Total Allowed Fills: 1 Fills Dispensed: 0 ergocalciferol 1.25 mg oral capsule (16 sources) Provitamin D2 Compound Start: 12-10-2024 End: 06-08-2025 take 1 capsule by mouth once, then take 1 capsule by mouth every month ergocalciferol 50,000 intl units (1.25 mg) oral capsule Dose : 50,000 International_Unit = 1 cap(s), Oral, qmonth, # 4 cap(s), 1 Refill(s), Pharmacy: [facility], Vitamin D deficiency, 172, cm, 12/10/24 12:59:00 EDT, Height, kg, 12/10/24 12:59:00 EDT, Dosing Weight Start Date: 12/10/24 Stop Date: 06/08/25 Status: Ordered Medication Dispense Status: Completed Quantity: 4.0 Unit: cap(s) Total Allowed Fills: 2 Fills Dispensed: 0 Indications: Vitamin D deficiency, unspecified; Start: 04-30-2024 End: 10-27-2024 take 1 capsule by mouth once, then take 1 capsule by mouth every month ergocalciferol 50,000 intl units (1.25 mg) oral capsule Dose : 50,000 International_Unit = 1 cap(s), Oral, qmonth, # 4 cap(s), 1 Refill(s), Pharmacy: [facility], Vitamin D deficiency, 176, cm, 04/30/24 12:56:00 EST, Height, kg, 04/30/24 12:56:00 EST, Dosing Weight Start Date: 04/30/24 Stop Date: 10/27/24 Status: Ordered Quantity: 4.0 Unit: cap(s) Repeat number: 2 Indications: Vitamin D deficiency, unspecified; Start: 05-15-2023 Ergocalciferol (Vitamin D2) 1,250 mcg (50,000 unit) capsule Active 34121 U PO EVERY MONTH May 15, 2023 1:00am Start: 05-15-2023 take 96062 [IU] by m outh every month Ergocalciferol (Vitamin D2) Active 86472 UNIT PO EVERY MONTH May 15, 2023 12:00am Start: 05-05-2023 End: 04-09-2024 ergocalciferol 50,000 intl u nits (1.25 mg) oral capsule Dose : 50,000 International_Unit = 1 cap(s), Oral, qmonth, # 4 cap(s), 1 Refill(s), Pharmacy: [facility], Vitamin D deficiency, 176, cm, 10/12/23 8:49:00 EDT, Height, kg, 10/12/23 8:49:00 EDT, Dosing Weight Start Date: 10/12/23 Stop Date: 04/09/24 Status: Ordered Start: 11-22-2022 End: 05-21-2023 ergocalciferol 50,000 intl u nits (1.25 mg) oral capsule Dose : 50,000 International_Unit = 1 cap(s), Oral, qmonth, # 4 cap(s), 1 Refill(s), Pharmacy: [facility], Vitamin D deficiency, 173, cm, 11/22/22 10:23:00 EDT, Height, kg, 11/22/22 10:23:00 EDT, Dosing Weight Start Date: 11/22/22 Stop Date: 05/21/23 Status: Ordered Start: 05-12-2022 End: 11-08-2022 ergocalciferol 50,000 intl u nits (1.25 mg) oral capsule Dose : 50,000 International_Unit = 1 cap(s), Oral, qmonth, # 4 cap(s), 1 Refill(s), Pharmacy: [facility], Vitamin D deficiency, 173, cm, 05/12/22 10:31:00 EST, Height, kg, 05/12/22 10:31:00 EST, Dosing Weight Start Date: 05/12/22 Stop Date: 11/08/22 Status: Ordered Start: 11-09-2021 End: 05-08-2022 ergocalciferol 50,000 intl u nits (1.25 mg) oral capsule Dose : 50,000 International_Unit = 1 cap(s), Oral, qmonth, # 4 cap(s), 1 Refill(s), Pharmacy: [facility], Vitamin D deficiency, 175, cm, 11/09/21 9:03:00 EDT, Height, kg, 11/09/21 9:03:00 EDT, Dosing Weight Start Date: 11/09/21 Stop Date: 05/08/22 Status: Ordered Start: 10-20-2020 End: 07-17-2021 ergocalciferol 50,000 intl u nits (1.25 mg) oral capsule Dose : 50,000 International_Unit = 1 cap(s), Oral, qWeek, # 13 cap(s), 2 Refill(s), Pharmacy: [facility], Vitamin D deficiency, 175, cm, 10/20/20 10:15:00 EDT, Height, kg, 10/20/20 10:15:00 EDT, Dosing Weight Start Date: 10/20/20 Stop Date: 07/17/21 Status: Ordered gabapentin 100 mg oral capsule (20 sources) Anti-epileptic Agent Start: 03-19-2024 End: 05-18-2024 gabapentin 100 mg oral capsule Dose : 100 mg = 1 cap(s), Oral, TID, Fill Date: 03/19/2024, # 90 cap(s), 1 Refill(s), Pharmacy: [facility], Back pain with right-sided sciatica Spinal stenosis, 176, cm, 03/19/24 12:52:00 EDT, Height, 83.3, kg, 03/19/24 12:52:00 EDT, Dosing Weight Start Date: 03/19/24 Stop Date: 05/18/24 Status: Ordered Start: 06-29-2023 gabapentin 100 mg oral capsule Dose : 100 mg = 1 cap(s), Oral, BID, # 60 cap(s), 0 Refill(s), 80.7 Start Date: 06/29/23 Status: Ordered Start: 06-12-2023 take 2 capsules by m outh twice daily at bedtime, then take 3 capsules by mouth at bedtime Gabapentin Active 300 MG PO AT BEDTIME June 12, 2023 12:00am TAKE TWO CAPSULES (200MG) BY MOUTH TWICE DAILY WELL THREE CAPSULES (300MG) AT BEDTIME. Start: 06-12-2023 take 2 capsules by m outh twice daily, then take 3 capsules by mouth at bedtime Gabapentin Active 200 MG PO TWICE A DAY June 12, 2023 12:00am TAKE TWO CAPSULES (200MG) BY MOUTH TWICE DAILY WELL THREE CAPSULES (300MG) AT BEDTIME. Start: 06-06-2023 End: 08-19-2024 take 2 capsules by mouth twice daily at bedtime, then take 3 capsules by mouth at bedtime Gabapentin 100 mg capsule Discontinued 300 mg PO AT BEDTIME June 12, 2023 1:00am August 19, 2024 12:31pm TAKE TWO CAPSULES (200MG) BY MOUTH TWICE DAILY WELL THREE CAPSULES (300MG) AT BEDTIME. Start: 06-06-2023 End: 06-12-2023 Gabapentin Discontinued 0 .R OUTE .COMPLEX 75 June 06, 2023 12:00am June 12, 2023 4:19pm 200 mg (2 caps) orally twice daily and 300 mg (3 caps) at HS Start: 05-26-2023 End: 06-06-2023 Gabapentin 300 mg Capsule Discontinued 300 mg PO 1999 06May 26, 2023 1:00am June 06, 2023 6:05pm losartan potassium 100 mg oral tablet (6 sources) Angiotensin 2 Receptor Sean Start: 05-26-2023 take 1 tablet by mouth once daily Losartan (Cozaar) 100 mg tablet Active 100 mg PO DAILY May 26, 2023 1:00am Magnesium Hydroxide (17 sources) Start: 06-12-2023 take 1 mL by mouth once as needed for constipation Magnesium Hydroxide 400 mg/5 mL Suspension Active 30 mL PO ONE TIME as needed for CONSTIPATION June 12, 2023 1:00am Start: 06-12-2023 take 1 mL by mouth once Magnes ium Hydroxide Active 30 ML PO ONE TIME June 12, 2023 12:00am Start: 06-06-2023 End: 06-12-2023 take 1 mL by mouth once as needed for constipation Magnesium Hydroxide 400 mg/5 mL Suspension Discontinued 30 mL PO ONE TIME as needed for Constipation June 06, 2023 6:21pm June 12, 2023 5:19pm This is an over the counter drug and not covered by insurance Start: 06-06-2023 End: 06-12-2023 take 1 mL by mouth once Magnesium Hydroxide Disconti nued 30 ML PO ONE TIME June 06, 2023 5:21pm June 12, 2023 4:19pm This is an over the counter drug and not covered by insurance Start: 06-06-2023 take 1 mL by mouth once Magnes ium Hydroxide Active 30 ML PO ONE TIME June 06, 2023 5:21pm This is an over the counter drug and not covered by insurance Start: 05-26-2023 End: 06-06-2023 take 1 mL by mouth once as needed for constipation Magnesium Hydroxide 400 mg/5 mL Suspension Discontinued 30 mL PO ONE TIME as needed for Constipation May 26, 2023 1:00am June 06, 2023 6:22pm Start: 05-26-2023 End: 06-06-2023 take 1 mL by mouth once Magnesium Hydroxide Disconti nued 30 ML PO ONE TIME May 26, 2023 12:00am June 06, 2023 5:22pm 24 hr metoprolol succinate 25 mg extended release oral tablet (6 sources) beta-Adrenergic Sean Start: 12-10-2024 metopr olol succinate 25 mg oral TABLET extended release Dose : 25 mg = 1 tab(s), Oral, qDay, # 90 tab(s), 1 Refill(s), Pharmacy: [facility], Uncontrolled hypertension, 172, cm, 12/10/24 12:59:00 EDT, Height, kg, 12/10/24 12:59:00 EDT, Dosing Weight Start Date: 12/10/24 Status: Ordered Medication Dispense Status: Completed Quantity: 90.0 Unit: tab(s) Total Allowed Fills: 2 Fills Dispensed: 0 Indications: Essential (primary) hypertension; Start: 04-30-2024 metoprolol suc cinate 25 mg oral TABLET extended release Dose : 25 mg = 1 tab(s), Oral, qDay, # 90 tab(s), 1 Refill(s), Pharmacy: [facility], Uncontrolled hypertension, 176, cm, 04/30/24 12:56:00 EST, Height, kg, 04/30/24 12:56:00 EST, Dosing Weight Start Date: 04/30/24 Status: Ordered Quantity: 90.0 Unit: tab(s) Repeat number: 2 Indications: Essential (primary) hypertension; Start: 10-12-2023 metoprolol suc cinate 25 mg oral TABLET extended release Dose : 25 mg = 1 tab(s), Oral, qDay, # 90 tab(s), 1 Refill(s), Pharmacy: [facility], Uncontrolled hypertension, 176, cm, 10/12/23 8:49:00 EDT, Height, kg, 10/12/23 8:49:00 EDT, Dosing Weight Start Date: 10/12/23 Status: Ordered Start: 05-05-2023 metoprolol suc cinate 25 mg oral TABLET extended release Dose : 25 mg = 1 tab(s), Oral, qDay, # 30 tab(s), 1 Refill(s), Pharmacy: [facility], Uncontrolled hypertension, 176, cm, 05/05/23 14:38:00 EST, Height, kg, 05/05/23 14:38:00 EST, Dosing Weight Start Date: 05/05/23 Status: Ordered Misc Medication (5 sources) Start: 03-19-2024 Misc Medicatio n Provision, 0 Refill(s), 81.7 Start Date: 03/19/24 Status: Ordered Medication Dispense Status: Completed Total Allowed Fills: 1 Fills Dispensed: 0 Start: 03-19-2024 Misc Medicatio n Provision, 0 Refill(s), 81.7 Start Date: 03/19/24 Status: Ordered Repeat number: 1 Start: 03-19-2024 Misc Medicatio n Provision, 0 Refill(s), 81.7 Start Date: 03/19/24 Status: Ordered Multivitamin preparation (6 sources) Start: 05-15-2023 take 1 tablet by mouth once daily Multivitamin Active 1 TABLET PO DAILY May 15, 2023 12:00am Start: 04-23-2019 take 1 tablet by mikie th once daily Multivitamin Dose = 1 tab(s), Oral, Daily, 0 Refill(s) Start Date: 04/23/19 Status: Ordered ofloxacin 3 mg/ml ophthalmic solution (2 sources) Quinolone Antimicrobial Start: 02-23-2023 ofloxa bishop 0.3% ophthalmic solution 0 Refill(s) Start Date: 02/23/23 Status: Ordered ramipril 10 mg oral capsule (3 sources) Angiotensin Converting Enzyme Inhibitor Start: 12-10-2024 ramipril 10 mg oral capsule Dose : 10 mg = 1 cap(s), Oral, qDay, D/c Diovan, # 90 cap(s), 1 Refill(s), Pharmacy: [facility], HTN, goal below 140/90, 172, cm, 12/10/24 12:59:00 EDT, Height, kg, 12/10/24 12:59:00 EDT, Dosing Weight Start Date: 12/10/24 Status: Ordered Medication Dispense Status: Completed Quantity: 90.0 Unit: cap(s) Total Allowed Fills: 2 Fills Dispensed: 0 Indications: Essential (primary) hypertension; Start: 06-11-2024 End: 08-10-2024 ramipril 10 mg oral capsule Dose : 10 mg = 1 cap(s), Oral, qDay, D/c Diovan, # 90 cap(s), 1 Refill(s), Pharmacy: [facility], HTN, goal below 140/90, 176, cm, 06/11/24 12:52:00 EST, Height, kg, 06/11/24 12:52:00 EST, Dosing Weight Start Date: 06/11/24 Stop Date: 08/10/24 Status: Ordered Quantity: 90.0 Unit: cap(s) Repeat number: 2 Indications: Essential (primary) hypertension; traMADol hydrochloride 50 mg oral tablet (2 sources) Opioid Agonist Start: 04-02-2024 End: 06-01-2024 traMADol 50 mg oral tablet Dose : 50 mg = 1 tab(s), Oral, TID, Fill Date: 04/02/2024, X 30 day(s), # 90 tab(s), 1 Refill(s), 06/01/24 11:35:00 AM EST, Pharmacy: [facility], Back pain with right-sided sciatica Spinal stenosis, 170, cm, 04/02/24 10:59:00 EDT, Height, 83.3, kg, 04/02/24 10:59:00 EDT, Dosing Weight Start Date: 04/02/24 Stop Date: 06/01/24 Status: Ordered valsartan 160 mg oral tablet (13 sources) Angiotensin 2 Receptor Sean Start: 10-12-2023 Diovan 160 mg oral tablet Dose : 160 mg = 1 tab(s), Oral, qDay, # 90 tab(s), 1 Refill(s), Pharmacy: [facility], HTN, goal below 140/90, 176, cm, 10/12/23 8:49:00 EDT, Height, kg, 10/12/23 8:49:00 EDT, Dosing Weight Start Date: 10/12/23 Status: Ordered Start: 05-05-2023 End: 05-26-2023 take 1 tablet by mouth once daily Valsartan 160 mg tablet Discontinued 160 mg PO DAILY May 15, 2023 1:00am May 26, 2023 4:16pm Start: 11-22-2022 Diovan 160 mg oral tablet Dose : 160 mg = 1 tab(s), Oral, qDay, # 90 tab(s), 1 Refill(s), Pharmacy: [facility], HTN, goal below 140/90, 173, cm, 11/22/22 10:23:00 EDT, Height, kg, 11/22/22 10:23:00 EDT, Dosing Weight Start Date: 11/22/22 Status: Ordered Start: 05-12-2022 Diovan 160 mg oral tablet Dose : 160 mg = 1 tab(s), Oral, qDay, # 90 tab(s), 1 Refill(s), Pharmacy: [facility], HTN, goal below 140/90, 173, cm, 05/12/22 10:31:00 EST, Height Start Date: 05/12/22 Status: Ordered Start: 11-09-2021 End: 05-08-2022 Diovan 80 mg oral tablet Dos e : 80 mg = 1 tab(s), Oral, qDay, Discontinue the 40 mg Rx, # 90 tab(s), 1 Refill(s), Pharmacy: [facility], HTN, goal below 140/90, 175, cm, 11/09/21 9:03:00 EDT, Height, kg, 11/09/21 9:03:00 EDT, Dosing Weight Start Date: 11/09/21 Stop Date: 05/08/22 Status: Ordered Start: 10-20-2020 End: 07-17-2021 Diovan 80 mg oral tablet Dos e : 80 mg = 1 tab(s), Oral, qDay, Discontinue the 40 mg Rx, # 90 tab(s), 2 Refill(s), Pharmacy: [facility], HTN, goal below 140/90, 175, cm, 10/20/20 10:15:00 EDT, Height, kg, 10/20/20 10:15:00 EDT, Dosing Weight Start Date: 10/20/20 Stop Date: 07/17/21 Status: Ordered 24 hr venlafaxine 75 mg extended release oral capsule (16 sources) Serotonin and Norepinephrine Reuptake Inhibitor Start: 12-10-2024 End: 06-08-2025 venlafaxine 75 mg oral capsule, extended release Dose : 75 mg = 1 cap(s), Oral, qDay, # 90 cap(s), 1 Refill(s), Pharmacy: [facility], JOSÉ MIGUEL (generalized anxiety disorder), 172, cm, 12/10/24 12:59:00 EDT, Height, kg, 12/10/24 12:59:00 EDT, Dosing Weight Start Date: 12/10/24 Stop Date: 06/08/25 Status: Ordered Medication Dispense Status: Completed Quantity: 90.0 Unit: cap(s) Total Allowed Fills: 2 Fills Dispensed: 0 Indications: Generalized anxiety disorder; Start: 04-30-2024 End: 10-27-2024 venlafaxine 75 mg oral capsu le, extended release Dose : 75 mg = 1 cap(s), Oral, qDay, # 90 cap(s), 1 Refill(s), Pharmacy: [facility], JOSÉ MIGUEL (generalized anxiety disorder), 176, cm, 04/30/24 12:56:00 EST, Height, kg, 04/30/24 12:56:00 EST, Dosing Weight Start Date: 04/30/24 Stop Date: 10/27/24 Status: Ordered Quantity: 90.0 Unit: cap(s) Repeat number: 2 Indications: Generalized anxiety disorder; Start: 11-22-2022 End: 04-09-2024 take 1 capsule by mouth once daily Venlafaxine (Effexor Xr) 75 mg capsule,extended release 24hr Active 75 mg PO DAILY May 15, 2023 1:00am Start: 05-12-2022 End: 11-08-2022 venlafaxine 75 mg oral capsu le, extended release Dose : 75 mg = 1 cap(s), Oral, qDay, # 90 cap(s), 1 Refill(s), Pharmacy: [facility], JOSÉ MIGUEL (generalized anxiety disorder), 173, cm, 05/12/22 10:31:00 EST, Height, kg, 05/12/22 10:31:00 EST, Dosing Weight Start Date: 05/12/22 Stop Date: 11/08/22 Status: Ordered Start: 11-09-2021 End: 05-08-2022 venlafaxine 75 mg oral capsu le, extended release Dose : 75 mg = 1 cap(s), Oral, qDay, # 90 cap(s), 1 Refill(s), Pharmacy: [facility], JOSÉ MIGUEL (generalized anxiety disorder), 175, cm, 11/09/21 9:03:00 EDT, Height, kg, 11/09/21 9:03:00 EDT, Dosing Weight Start Date: 11/09/21 Stop Date: 05/08/22 Status: Ordered Start: 10-20-2020 End: 07-17-2021 venlafaxine 75 mg oral capsu le, extended release Dose : 75 mg = 1 cap(s), Oral, qDay, # 90 cap(s), 2 Refill(s), Pharmacy: [facility], JOSÉ MIGUEL (generalized anxiety disorder), 175, cm, 10/20/20 10:15:00 EDT, Height, kg, 10/20/20 10:15:00 EDT, Dosing Weight Start Date: 10/20/20 Stop Date: 07/17/21 Status: Ordered Completed/Discontinued Medications Medication Drug Class(es) Dates Sig (Normalized) Sig (Original) acetaminophen 325 mg / HYDROcodone bitartrate 5 mg oral tablet (20 sources) Opioid Agonist Start: 05-26-2023 End: 06-19-2023 Hydrocodone-Acetami nophen 5-325 mg tablet Discontinued 1 {tbl} PO EVERY 6 HOURS as needed for pain 22 10June 14, 2023 June 18, 2023 1:00am June 19, 2023 1:04am acetaminophen 325 mg / oxyCODONE hydrochloride 5 mg oral tablet (6 sources) Opioid Agonist Start: 05-15-2023 End: 05-26-2023 Oxycodone-Acetamino phen 5-325 mg tablet Discontinued 2 {tbl} PO EVERY 6 HOURS as needed for pain May 15, 2023 1:00am May 26, 2023 4:16pm Start: 05-15-2023 End: 05-26-2023 take 2 tablets by mouth every six hours Oxycodone-Acetaminophen Discontinued 2 TABLET PO EVERY 6 HOURS May 15, 2023 12:00am May 26, 2023 3:16pm bisacodyl 10 mg rectal suppository (6 sources) Stimulant Laxative Start: 05-26-2023 End: 06-06-2023 Bisacodyl 10 mg Suppository Discontinued 10 mg RC ONE TIME as needed for Constipation May 26, 2023 1:00am June 06, 2023 6:04pm Start: 05-26-2023 End: 06-06-2023 Bisacodyl Discontinued 10 MG RC ONE TIME May 26, 2023 12:00am June 06, 2023 5:04pm chlorhexidine gluconate 20 mg/ml topical solution (1 source) Start: 05-05-2023 End: 05-15-2023 apply 1 dose topically once daily chlorhexidine 2% topical liquid Dose = 1 eliseo, Topical, Daily, # 120 mL, 1 Refill(s), Pharmacy: [facility] #[id number], Pre-op evaluation, 176, cm, 05/05/23 14:38:00 EST, Height, kg, 05/05/23 14:38:00 EST, Dosing Weight Start Date: 05/05/23 Stop Date: 05/15/23 Status: Ordered cyclobenzaprine hydrochloride 5 mg oral tablet (12 sources) Muscle Relaxant Start: 06-06-2023 End: 07-12-2023 cyclobenzaprine 5 mg oral tablet Dose : 5 mg = 1 tab(s), Oral, TID, # 42 tab(s), 0 Refill(s) Start Date: 06/29/23 Stop Date: 07/12/23 Status: Ordered docusate sodium 50 mg / sennosides, residential 8.6 mg oral tablet (16 sources) Start: 05-26-2023 End: 08-19-2024 Sennosides-Docusate Sodium (Stool Softener-Stimulant Laxat) 8.6-50 mg Tablet Discontinued 2 {tbl} PO TWICE A DAY 120 June 06, 2023 6:21pm June 14, 2023 11:10am meloxicam 15 mg oral tablet (8 sources) Nonsteroidal Anti-inflammatory Drug Start: 11-19-2024 End: 01-18-2025 Mobic 15 mg oral tablet Dose : 15 mg = 1 tab(s), Oral, qDay, # 30 tab(s), 1 Refill(s), Pharmacy: [id number], Back pain with right-sided sciatica Spinal stenosis, 172, cm, 08/16/24 10:12:00 EDT, Height, kg, 08/16/24 10:12:00 EDT, Dosing Weight Start Date: 11/19/24 Stop Date: 01/18/25 Status: Ordered Medication Dispense Status: Completed Quantity: 30.0 Unit: tab(s) Total Allowed Fills: 2 Fills Dispensed: 0 Indications: Sciatica, right side; Spinal stenosis, site unspecified; Start: 04-02-2024 End: 06-01-2024 Mobic 15 mg oral tablet Dose : 15 mg = 1 tab(s), Oral, qDay, # 30 tab(s), 1 Refill(s), Pharmacy: [id number], Back pain with right-sided sciatica Spinal stenosis, 170, cm, 04/02/24 10:59:00 EDT, Height, kg, 04/02/24 10:59:00 EDT, Dosing Weight Start Date: 04/02/24 Stop Date: 06/01/24 Status: Ordered Start: 05-12-2022 End: 11-08-2022 meloxicam 15 mg oral tablet Dose : 15 mg = 1 tab(s), Oral, qDay, # 90 tab(s), 1 Refill(s), Pharmacy: [id number], Arthritis, 173, cm, 05/12/22 10:31:00 EST, Height, kg, 05/12/22 10:31:00 EST, Dosing Weight Start Date: 05/12/22 Stop Date: 11/08/22 Status: Ordered Start: 11-09-2021 End: 05-08-2022 meloxicam 15 mg oral tablet Dose : 15 mg = 1 tab(s), Oral, qDay, # 90 tab(s), 1 Refill(s), Pharmacy: [id number], Arthritis, 175, cm, 11/09/21 9:03:00 EDT, Height, kg, 11/09/21 9:03:00 EDT, Dosing Weight Start Date: 11/09/21 Stop Date: 05/08/22 Status: Ordered Start: 10-20-2020 End: 07-17-2021 meloxicam 15 mg oral tablet Dose : 15 mg = 1 tab(s), Oral, qDay, # 90 tab(s), 2 Refill(s), Pharmacy: [id number], Arthritis, 175, cm, 10/20/20 10:15:00 EDT, Height, kg, 10/20/20 10:15:00 EDT, Dosing Weight Start Date: 10/20/20 Stop Date: 07/17/21 Status: Ordered Multivitamin tablet (1 source) Start: 05-15-2023 End: 08-19-2024 Multivitamin tablet Disconti nued 1 {tbl} PO DAILY May 15, 2023 1:00am August 19, 2024 12:32pm pregabalin 50 mg oral capsul e (5 sources) Start: 08-09-2024 End: 11-07-2024 Lyrica 50 mg oral capsule Do se : 50 mg = 1 cap(s), Oral, BID, Fill Date: 08/09/2024, # 60 cap(s), 2 Refill(s), Pharmacy: [id number], Chronic back pain Back pain with right-sided sciatica, 176, cm, 08/09/24 10:01:00 EST, Height, 77, kg, 08/09/24 10:01:00 EST, Dosing Weight Start Date: 08/09/24 Stop Date: 11/07/24 Status: Ordered Medication Dispense Status: Completed Quantity: 60.0 Unit: cap(s) Total Allowed Fills: 3 Fills Dispensed: 0 Indications: Dorsalgia, unspecified; Sciatica, right side; Start: 04-19-2024 End: 07-18-2024 pregabalin 50 mg oral capsul e Dose : 50 mg = 1 cap(s), Oral, qDay, # 30 cap(s), 2 Refill(s), Pharmacy: [id number], Failed back surgical syndrome Arthritis of right hip, 177.8, cm, 04/19/24 9:12:00 EST, Height, 83, kg, 04/19/24 9:12:00 EST, Dosing Weight Start Date: 04/19/24 Stop Date: 07/18/24 Status: Ordered tiZANidine 2 mg oral capsule (6 sources) 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-2 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 Start: 05-26-2023 End: 06-06-2023 take 1 capsule by mouth at bedtime Tizanidine 2 mg capsule Discontinued 2 mg PO AT BEDTIME May 26, 2023 1:00am June 06, 2023 6:14pm Problems Active Problems Problem Classification Problem Date Documented Da te Episodic/Chronic Acute posthemorrhagic anemia (16 sources) Acute posthemorrhagic anemia; Translations: [Acute posthemorrhagic anemia] 06-04-2023 Episodic Anxiety disorders (20 sources) Generalized anxiety disorder; Translations: [Generalized anxiety disorder] 10-20-2020 Chronic Disorders of lipid metabolism (20 sources) Hyperlipidemia; Translations: [Hypertriglyceridemia ] 04-23-2019 Chronic Essential hypertension (20 sources) Hypertensive disorder; Translations: [Essential hypertension] 04-23-2019 Chronic Fluid and electrolyte disorders (12 sources) Hyperkalemia; Translations: [Dehydration] 03-16-2023 Episodic Heart valve disorders (20 sources) Mitral valve regurgitation; Translations: [Tricuspid valve regurgitation] 04-22-2019 Chronic Comment on above: 11/17/2020- Echocard iogram Summary: 1. Left ventricle: The cavity size is normal. Wall thickness is normal. Systolic function is normal. The estimated ejection fraction is 55-60%. Wall motion is normal; there are no regional wall motion abnormalities. Normal diastolic function. 2. Mitral valve: There is mild regurgitation. 3. Right ventricle: The RV systolic pressure by Doppler is 31 mm Hg. 4. Right atrium: The estimated right atrial pressure is 3 mm Hg. Heart valve disorders (14 sources) Pansystolic murmur 11-17-2020 Episodic Comment on above: Echocardiogram Summa ry (11/2020): 1. Left ventricle: The cavity size is normal. Wall thickness is normal. Systolic function is normal. The estimated ejection fraction is 55-60%. Wall motion is normal; there are no regional wall motion abnormalities. Normal diastolic function. 2. Mitral valve: There is mild regurgitation. 3. Right ventricle: The RV systolic pressure by Doppler is 31 mm Hg. 4. Right atrium: The estimated right atrial pressure is 3 mm Hg. Intestinal infection (8 sources) Infectious diarrheal disease 06-29-2023 Episodic Malaise and fatigue (20 sources) Asthenia; Translations: [Other malaise] 06-04-2023 Episodic Nonmalignant breast conditions (18 sources) Breast lump 10-12-2023 Episodic Comment on above: 10/20/2023 Ultrasoun d Breast RIGHT FINDINGS: Multiple longitudinal and transverse ultrasound images of the inferior right breast in the area of of the palpable abnormality do not demonstrate a discrete solid or cystic mass most consistent with normal breast parenchyma. IMPRESSION: 1. Normal diagnostic mammogram with right breast ultrasound. 2. However, biopsy of any palpable abnormality should be performed if clinically indicated. ASSESSMENT CATEGORY: BI-RADS Category 1 10/20/2023 Diagnosti c Bilateral Mammogram FINDINGS: Breast composition: The breasts are heterogeneously dense, with many obscure small masses. There is no dominant masses or suspicious calcifications. No other significant abnormalities are identified. There is been no significant change since last/prior study. IMPRESSION: 1. Negative diagnostic mammogram. 2. With the patient's history of palpable lump in the inferior anterior medial aspect of the right breast, correlation with ultrasound is recommended. ASSESSMENT CATEGORY: BI-RADS Category 0: Incomplete Nutritional deficiencies (20 sources) Vitamin D deficiency; Translations: [Vitamin D deficiency, unspecified] 04-22-2019 Chronic Osteoarthritis (18 sources) Arthritis; Translations: [Osteoarthritis] Onset: 05-23-2024 10-20-2020 Chronic Comment on above: OA (osteoarthritis) Other aftercare (1 source) Post-discharge follow-up 06-29-2023 Episodic Other connective tissue disease (1 source) Musculoskeletal test abnormal; Translations: [Other symptoms and signs involving the musculoskeletal system] Episodic Other connective tissue disease (1 source) Trochanteric bursitis 06-14-2024 Episodic Other gastrointestinal disorders (14 sources) Irritable bowel syndrome 04-22-2019 Chronic Other gastrointestinal disorders (10 sources) Diarrhea; Translations: [Diarrhea, unspecified] 06-12-2023 Episodic Other gastrointestinal disorders (4 sources) Diarrhea, unspecified; Translations: [Diarrhea] 06-12-2023 Episodic Other nervous system disorders (8 sources) Post-surgery back pain 04-19-2024 Episodic Comment on above: (11/17/2016 11:44 ED T XR Spine Lumbar W/Obliques 4 Views) FINDINGS: There is a mild dextroscoliosis of lumbar spine. 5 none rib-bearing lumbar vertebrae are demonstrated. Minimal retrolisthesis of L2 on L3 is noted. Remainder of lumbar vertebral bodies are normally aligned. There are no pars defects. Marginal osteophytes are present at several levels. Facet degenerative change is most severe in the lower lumbar spine. There appears to be vacuum disc phenomenon at the L2/3 level. IMPRESSION: 1. No compression deformity or significant listhesis. 2. Degenerative changes throughout the lumbar spine, as above. 01/03/2023 MRI Spine Lumbar without contrast: IMPRESSION: 1. Mild right-sided renal hydronephrosis. 2. Moderate lumbar scoliosis with multilevel lateral subluxation and retrolithiasis. 3. Advanced discogenic and facet degenerative changes with multilevel disc bulge. Slightly more focal small disc herniation on the right lateral recess L4-L5 and far laterally on the right at L5-S1. 4. Findings contributed to a moderate to severe spinal canal stenosis most pronounced at L3-L4. 5. Other moderate diffuse spinal canal stenosis noted throughout the lumbar spine. 6. There is advanced multilevel neuroforaminal narrowing which is severe on the left side at L2-L3 and L3-L4 and on the right side at L4-L5. Other significant foraminal stenosis also noted. (04/19/2024 10:31 EST XR Spine Lumbar Ap/Lat) FINDINGS: There is interval surgery in the thoracal lumbar spine. Multilevel laminectomy is present in the lower lumbar region and there are pedicle screws extending through the entire lumbar spine to the S1 level and also in to the T11 and T12 vertebra. There may be some lucency around the S1 screws on the AP view. No other hardware complication is seen. Disc space narrowing and endplate spurring at L5-S1 with other degenerative changes. No vertebral compression deformity or significant listhesis. IMPRESSION: 1. Degenerative and postop changes. 2. Question mild loosening of the S1 pedicle screws. Other non-epithelial cancer of skin (11 sources) Basal cell carcinoma of face 02-24-2023 Episodic Other non-traumatic joint disorders (8 sources) Arthritis of hip 04-19-2024 Chronic Comment on above: (06/14/2024 11:44 ES T XR Hip 2-3 Views Left) FINDINGS: There is no fracture or dislocation of the left hip. The left hip joint space is mildly narrowed. There is moderate acetabular spur formation. Left femoral head is normal in contour there is no sign of avascular necrosis. Trochanteric region is remarkable for mild enthesopathic spur formation. IMPRESSION: 1. [id number] osteoarthritis of the left hip. Other nutritional; endocrine; and metabolic disorders (5 sources) Adult failure to thrive syndrome; Translations: [Adult failure to thrive] 06-12-2023 Episodic Other nutritional; endocrine; and metabolic disorders (4 sources) Adult failure to thrive; Translations: [Adult failure to thrive] 06-12-2023 Episodic Other screening for suspected conditions (not mental disorders or infectious disease) (5 sources) Mammography abnormal; Translations: [Inconclusive mammogram] Onset: 11-01-2023 06-11-2024 Episodic Paralysis (7 sources) Monoparesis - leg 03-19-2024 Chronic Residual codes; unclassified (14 sources) Increased body mass index 10-20-2020 Episodic Residual codes; unclassified (14 sources) Postmenopausal state 04-22-2019 Episodic Residual codes; unclassified (11 sources) Chronic back pain 02-23-2023 Episodic Comment on above: (11/17/2016 11:44 ED T XR Spine Lumbar W/Obliques 4 Views) FINDINGS: There is a mild dextroscoliosis of lumbar spine. 5 none rib-bearing lumbar vertebrae are demonstrated. Minimal retrolisthesis of L2 on L3 is noted. Remainder of lumbar vertebral bodies are normally aligned. There are no pars defects. Marginal osteophytes are present at several levels. Facet degenerative change is most severe in the lower lumbar spine. There appears to be vacuum disc phenomenon at the L2/3 level. IMPRESSION: 1. No compression deformity or significant listhesis. 2. Degenerative changes throughout the lumbar spine, as above. 01/03/2023 MRI Spine Lumbar without contrast: IMPRESSION: 1. Mild right-sided renal hydronephrosis. 2. Moderate lumbar scoliosis with multilevel lateral subluxation and retrolithiasis. 3. Advanced discogenic and facet degenerative changes with multilevel disc bulge. Slightly more focal small disc herniation on the right lateral recess L4-L5 and far laterally on the right at L5-S1. 4. Findings contributed to a moderate to severe spinal canal stenosis most pronounced at L3-L4. 5. Other moderate diffuse spinal canal stenosis noted throughout the lumbar spine. 6. There is advanced multilevel neuroforaminal narrowing which is severe on the left side at L2-L3 and L3-L4 and on the right side at L4-L5. Other significant foraminal stenosis also noted. (04/19/2024 10:31 EST XR Spine Lumbar Ap/Lat) FINDINGS: There is interval surgery in the thoracal lumbar spine. Multilevel laminectomy is present in the lower lumbar region and there are pedicle screws extending through the entire lumbar spine to the S1 level and also in to the T11 and T12 vertebra. There may be some lucency around the S1 screws on the AP view. No other hardware complication is seen. Disc space narrowing and endplate spurring at L5-S1 with other degenerative changes. No vertebral compression deformity or significant listhesis. IMPRESSION: 1. Degenerative and postop changes. 2. Question mild loosening of the S1 pedicle screws. Residual codes; unclassified (14 sources) Other specified postprocedural states; Translations: [Other postprocedural status] 05-27-2023 Episodic Residual codes; unclassified (10 sources) H/O Spinal surgery 06-29-2023 Episodic Substance-related disorders (6 sources) Cigarette smoker ; Translations: [Nicotine dependence, cigarettes, uncomplicated] 06-04-2023 Chronic Syncope (2 sources) Near syncope 12-10-2024 Episodic Unclassified (1 source) Unknown / UNK(Unknown) Onset: 12-08-2016 Unclassified (20 sources) Patient encounter status 10-22-2019 Comment on above: 08/16/2024 Unclassified (9 sources) History of lumbar fusion 03-19-2024 Past or Other Problems Problem Classification Problem Date Documented Date Episodic/Chronic Spondylosis; intervertebral disc disorders; other back problems (20 sources) Spinal stenosis; Translations: [Radicular pain] Onset: 08-16-2024 02-23-2023 Episodic Comment on above: 01/03/2023 MRI Spine Lumbar without contrast: IMPRESSION: 1. Mild right-sided renal hydronephrosis. 2. Moderate lumbar scoliosis with multilevel lateral subluxation and retrolithiasis. 3. Advanced discogenic and facet degenerative changes with multilevel disc bulge. Slightly more focal small disc herniation on the right lateral recess L4-L5 and far laterally on the right at L5-S1. 4. Findings contributed to a moderate to severe spinal canal stenosis most pronounced at L3-L4. 5. Other moderate diffuse spinal canal stenosis noted throughout the lumbar spine. 6. There is advanced multilevel neuroforaminal narrowing which is severe on the left side at L2-L3 and L3-L4 and on the right side at L4-L5. Other significant foraminal stenosis also noted. (11/17/2016 11:44 ED T XR Spine Lumbar W/Obliques 4 Views) FINDINGS: There is a mild dextroscoliosis of lumbar spine. 5 none rib-bearing lumbar vertebrae are demonstrated. Minimal retrolisthesis of L2 on L3 is noted. Remainder of lumbar vertebral bodies are normally aligned. There are no pars defects. Marginal osteophytes are present at several levels. Facet degenerative change is most severe in the lower lumbar spine. There appears to be vacuum disc phenomenon at the L2/3 level. IMPRESSION: 1. No compression deformity or significant listhesis. 2. Degenerative changes throughout the lumbar spine, as above. (11/17/2016 11:44 ED T XR Spine Lumbar W/Obliques 4 Views) FINDINGS: There is a mild dextroscoliosis of lumbar spine. 5 none rib-bearing lumbar vertebrae are demonstrated. Minimal retrolisthesis of L2 on L3 is noted. Remainder of lumbar vertebral bodies are normally aligned. There are no pars defects. Marginal osteophytes are present at several levels. Facet degenerative change is most severe in the lower lumbar spine. There appears to be vacuum disc phenomenon at the L2/3 level. IMPRESSION: 1. No compression deformity or significant listhesis. 2. Degenerative changes throughout the lumbar spine, as above. 01/03/2023 MRI Spine Lumbar without contrast: IMPRESSION: 1. Mild right-sided renal hydronephrosis. 2. Moderate lumbar scoliosis with multilevel lateral subluxation and retrolithiasis. 3. Advanced discogenic and facet degenerative changes with multilevel disc bulge. Slightly more focal small disc herniation on the right lateral recess L4-L5 and far laterally on the right at L5-S1. 4. Findings contributed to a moderate to severe spinal canal stenosis most pronounced at L3-L4. 5. Other moderate diffuse spinal canal stenosis noted throughout the lumbar spine. 6. There is advanced multilevel neuroforaminal narrowing which is severe on the left side at L2-L3 and L3-L4 and on the right side at L4-L5. Other significant foraminal stenosis also noted. (04/19/2024 10:31 EST XR Spine Lumbar Ap/Lat) FINDINGS: There is interval surgery in the thoracal lumbar spine. Multilevel laminectomy is present in the lower lumbar region and there are pedicle screws extending through the entire lumbar spine to the S1 level and also in to the T11 and T12 vertebra. There may be some lucency around the S1 screws on the AP view. No other hardware complication is seen. Disc space narrowing and endplate spurring at L5-S1 with other degenerative changes. No vertebral compression deformity or significant listhesis. IMPRESSION: 1. Degenerative and postop changes. 2. Question mild loosening of the S1 pedicle screws. 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 Permanently stored images were reviewed. COMPARISON: 05/30/2024, 06/28/2022 HISTORY: Six-month follow-up right breast mass 5 o'clock FINDINGS: The 7 mm oval circumscribed hypoechoic mass in the right breast at 5 o'clock middle depth 6 cm from the nipple described on the previous ultrasound has not significantly changed. There are internal echoes. There is no vascularity present. IMPRESSION: The 7 mm mass in the right breast at 5 o'clock is most likely a complicated cyst and appears probably benign. A 6 month follow up ultrasound and diagnostic bilateral mammogram is recommended to demonstrate stability. BIRADS: BI-RADS: 3: Probably Benign RECALL: 6 month follow-up RECALL TYPE: Mammo+US LETTER SENT: Probably Benign BI-RADS 3 Interpreted by: Kwan Thomas MD Preliminary Report By: Kwan Thomas MD Electronically signed By Kwan Thomas MD Dictated Date: 12/26/2024 6:58:29 PM Prelim Date: 12/26/2024 7:00:43 PM Sign Date: 12/26/2024 7:00:43 PM Ordering Provider: CANDY WOODSON Paginator: TRACEY INIGUEZ RT(Howard)(M) RDVT letter sent: Probably Benign BI-RADS 3 Ultrasound BI-RADS: 3 Probably benign Normal [facility] .GFRon 12-03-2024 Estimated Glomerular Filtration Rate 64 ml/min/1.73sqm Normal [facility] Comment on above: Result Comment: Stages of Chronic Kidney Disease (CKD) Stage Description eGFR(ml/min/1.73 sq.m.) CKD 1 Normal kidney function or >=90 normal kindney function with possible kidney damage (ex. Proteinuria) CKD 2 Kidney damage with mild loss 60-89 of kidney function CKD 3a Mild to moderate loss of kidney 45-59 function CKD 3b Moderate to severe loss of 30-44 of kindey function CKD 4 Severe loss of kidney function 15-29 CKD 5 Kidney failure <15 Note: (go live 2024) the eGFR calculation was updated to the 2020 CKD-EPI creatinine equation without a race factor to calculate the eGFR results. Performed By: #### C MP, VIDH, GFR, LIPID ####[id number] [place], [place] [address] CMPon 12-03-2024 Albumin Level 3.4 G/dL Normal 3.4-4.8 [facility] Comment on above: Performed By: #### C MP, VIDH, GFR, LIPID ####[id number] [place], [place] [address] Albumin/Globulin [Mass ratio] 0.8 {ratio} Low 1.1-2.5 [facility] Comment on above: Performed By: #### C MP, VIDH, GFR, LIPID ####[id number] [place], [place] [address] ALP [Catalytic activity/Vol] 96 U/L Normal 40-135 [facility] Comment on above: Performed By: #### C MP, VIDH, GFR, LIPID ####[facility] [place], [place] [address] ALT [Catalytic activity/Vol] 29 U/L Normal 14-59 [facility] Comment on above: Performed By: #### C MP, VIDH, GFR, LIPID ####[id number] [place], [place] [address] AST [Catalytic activity/Vol] 21 U/L Normal 10-40 [facility] Comment on above: Performed By: #### C MP, VIDH, GFR, LIPID ####[id number] [place], [place] [address] Bili Total 0.3 mg/dL Normal 0.2-1.0 [facility] Comment on above: Result Comment: Use of this assay is not recommended for patients undergoing treatment with eltrombopag due to the potential for falsely elevated results. Performed By: #### C MP, VIDH, GFR, LIPID ####[address] [address] BUN/Creatinine Ratio 27 ratio Normal 7-27 [facility] Comment on above: Performed By: #### C MP, VIDH, GFR, LIPID ####[address] [address] Calcium [Mass/Vol] 8.8 mg/dL Normal 8.4-10.2 [facility] Comment on above: Performed By: #### C MP, VIDH, GFR, LIPID ####[address] [address] Chloride [Moles/Vol] 106 mmol/L Normal 98-107 [facility] Comment on above: Performed By: #### C MP, VIDH, GFR, LIPID ####[address] [address] CO2 [Moles/Vol] 26 mmol/L Normal 23-31 [facility] Comment on above: Performed By: #### C MP, VIDH, GFR, LIPID ####[address] [place], [place] [address] Creatinine [Mass/Vol] 0.95 mg/dL Normal 0.51-0.95 [facility] Comment on above: Performed By: #### C MP, VIDH, GFR, LIPID ####[id number] [place], [place] [address] Electrolyte Balance 8.0 mEq/L Normal 4.0-15.0 [facility] Comment on above: Performed By: #### C MP, VIDH, GFR, LIPID ####[address] [place], [place] [address] Globulin 4.0 G/dL Normal 2.7-4.4 [facility] Comment on above: Performed By: #### C MP, VIDH, GFR, LIPID ####[address] [place], [place] [address] Glucose [Mass/Vol] 77 mg/dL Low 83-110 [facility] Comment on above: Performed By: #### C MP, VIDH, GFR, LIPID ####[id number] [place], [place] [address] Potassium [Moles/Vol] 5.1 mmol/L Normal 3.5-5.1 [facility] Comment on above: Performed By: #### C MP, VIDH, GFR, LIPID ####[address] [place], [place] [address] Sodium [Moles/Vol] 140 mmol/L Normal 136-145 [facility] Comment on above: Performed By: #### C MP, VIDH, GFR, LIPID ####[address] [place], [place] [address] Total Protein 7.4 G/dL Normal 6.4-8.2 [facility] Comment on above: Performed By: #### C MP, VIDH, GFR, LIPID ####[address] [place], [place] [address] Urea nitrogen [Mass/Vol] 26 mg/dL High 7-18 [facility] Comment on above: Performed By: #### C MP, VIDH, GFR, LIPID ####[address] [place], [place] [address] LABORATORYOrdered By: SYSTEM SYSTEM on 12-03-2024 25-hydroxyvitamin D3 [Mass/Vol] 32.8 ng/mL Invalid Interpretation Code AO ADM SS Comment on above: Interpretive Data: I nterpretive Values Based on Total 25(OH) Vitamin D: Deficient <20 ng/mL Insufficient 20 - <30 ng/mL Sufficient 30-100 ng/mL Albumin BCP dye [Mass/Vol] 3.4 G/dL Normal 3.4 - 4.8 G/dL AO ADM SS Albumin/Globulin [Mass ratio] 0.8 {ratio} Low 1.1 - 2.5 ratio AO ADM SS ALP [Catalytic activity/Vol] 96 U/L Normal 40 - 135 U/L AO ADM SS ALT With P-5'-P [Catalytic activity/Vol] 29 U/L Normal 14 - 59 U/L AO ADM SS AST With P-5'-P [Catalytic activity/Vol] 21 U/L Normal 10 - 40 U/L AO ADM SS Bilirubin [Mass/Vol] 0.3 mg/dL Normal 0.2 - 1 .0 mg/dL AO ADM SS Comment on above: Interpretive Data: U se of this assay is not recommended for patients undergoing treatment with eltrombopag due to the potential for falsely elevated results. Calcium [Mass/Vol] 8.8 mg/dL Normal 8.4 - 10. 2 mg/dL AO ADM SS Chloride [Moles/Vol] 106 mmol/L Normal 98 - 10 7 mmol/L AO ADM SS CO2 [Moles/Vol] 26 mmol/L Normal 23 - 31 mmol/L AO ADM SS Creatinine [Mass/Vol] 0.95 mg/dL Normal 0.51 - 0.95 mg/dL AO ADM SS Electrolyte Balance 8.0 mEq/L Normal 4.0 - 15 .0 mEq/L AO ADM SS Estimated Glomerular Filtration Rate 64 ml/min/1.73sqm Invalid Interpretation Code AO Chemistry S Comment on above: Interpretive Data: Stages of Chronic Kidney Disease (CKD) Stage Description eGFR(ml/min/1.73 sq.m.) CKD 1 Normal kidney function or >=90 normal kindney function with possible kidney damage (ex. Proteinuria) CKD 2 Kidney damage with mild loss 60-89 of kidney function CKD 3a Mild to moderate loss of kidney 45-59 function CKD 3b Moderate to severe loss of 30-44 of kindey function CKD 4 Severe loss of kidney function 15-29 CKD 5 Kidney failure <15 Note: (go live 2024) the eGFR calculation was updated to the 2020 CKD-EPI creatinine equation without a race factor to calculate the eGFR results. Globulin 4.0 G/dL Normal 2.7 - 4.4 G/dL AO ADM SS Glucose [Mass/Vol] 77 mg/dL Low 83 - 110 mg/dL AO ADM SS Potassium [Moles/Vol] 5.1 mmol/L Normal 3.5 - 5.1 mmol/L AO ADM SS Protein [Mass/Vol] 7.4 G/dL Normal 6.4 - 8.2 G/dL AO ADM SS Sodium [Moles/Vol] 140 mmol/L Normal 136 - 145 mmol/L AO ADM SS Urea nitrogen [Mass/Vol] 26 mg/dL High 7 - 18 mg/d L AO ADM SS Urea nitrogen/Creatinine [Mass ratio] 27 ratio Normal 7 - 27 ratio AO ADM SS LABORATORYOrdered By: Eliseo Christensen on 12-03-2024 Cholesterol [Mass/Vol] 171 mg/dL Normal 0 - 2 00 mg/dL AO ADM SS Comment on above: Interpretive Data: C holesterol Reference Interval: Less than 200 Desirable 200-239 Borderline high risk 240 and above High risk Cholesterol in HDL [Mass/Vol] 49 mg/dL Normal 40 - 60 mg/dL AO ADM SS Cholesterol in LDL [Mass/Vol] 93 mg/dL Normal 0 - 130 mg/dL AO ADM SS Triglyceride [Mass/Vol] 144 mg/dL Normal 0 - 150 mg/dL AO ADM SS Comment on above: Interpretive Data: T riglyceride Reference Interval: Less than 150 Normal 150-199 Borderline high risk 200-499 High risk 500 or higher Very high risk LIPIDon 12-03-2024 Cholesterol [Mass/Vol] 171 mg/dL Normal 0-200 [facility] Comment on above: Result Comment: Chol esterol Reference Interval: Less than 200 Desirable 200-239 Borderline high risk 240 and above High risk Performed By: #### C NICOLE, VIDH, GFR, LIPID ####[address] [place], [place] [address] Cholesterol in HDL [Mass/Vol] 49 mg/dL Normal 40-60 [facility] Comment on above: Performed By: #### C NICOLE, VILORENA, GFR, LIPID ####[facility] [place], [place] [address] Cholesterol in LDL [Mass/Vol] 93 mg/dL Normal 0-130 [facility] Comment on above: Performed By: #### C NICOLE, VIDH, GFR, LIPID ####[address] [place], [place] [address] Triglyceride [Mass/Vol] 144 mg/dL Normal 0-150 [facility] Comment on above: Result Comment: Trig lyceride Reference Interval: Less than 150 Normal 150-199 Borderline high risk 200-499 High risk 500 or higher Very high risk Performed By: #### C MP, VIDH, GFR, LIPID ####[address] [place], [place] [address] VIDHon 12-03-2024 Vit. D 25-Hydroxy 32.8 ng/mL Normal [facility] Comment on above: Result Comment: Inte rpretive Values Based on Total 25([place]) Vitamin D: Deficient <20 ng/mL Insufficient 20 - <30 ng/mL Sufficient 30-100 ng/mL Performed By: #### C MP, VIDH, GFR, LIPID ####[address] [place], [place] [address] Absolute neutrophil countOrd ered By: Yaniv Pitts on 08-19-2024 Neutrophils (Bld) [#/Vol] 4.8 10*3/uL 2.0-7.7 [facility] Basophil percentageOrdered B y: Yaniv Pitts on 08-19-2024 Basophils/100 WBC (Bld) 0.3 % 0-1 [facility] CBC W/Diff, Automatedon 08-03 Absolute Lymph 1.85 X10 3/uL Normal 0.83-4.51 [facility] Comment on above: Performed By: #### L 300.3900, L100.0100, L300.4310 #### [facility] [address] [place], [address] Absolute Neut 4.8 X10 3/uL Normal 2.0-7.7 [facility] Comment on above: Performed By: #### L 300.3900, L100.0100, L300.4310 #### [facility] [address] [place], [address] Basophils/100 WBC (Bld) 0.3 % Normal 0-1 [facility] Comment on above: Performed By: #### L 300.3900, L100.0100, L300.4310 #### [facility] [address] [place], [address] Eosinophils/100 WBC (Bld) 1.0 % Normal 0-5 [facility] Comment on above: Performed By: #### L 300.3900, L100.0100, L300.4310 #### [facility] [address] [place], [address] Erythrocyte distribution width (RBC) [Ratio] 14.3 % Normal 11.6-14.6 [facility] Comment on above: Performed By: #### L 300.3900, L100.0100, L300.4310 #### [facility] [address] [place], [address] Hematocrit (Bld) [Volume fraction] 42.6 % Normal 37-47 [facility] Comment on above: Performed By: #### L 300.3900, L100.0100, L300.4310 #### [facility] [address] [place], [address] Hemoglobin (Bld) [Mass/Vol] 14.0 g/dL Normal 12.0-15.0 [facility] Comment on above: Performed By: #### L 300.3900, L100.0100, L300.4310 #### [facility] [address] [place], [address] IG% 0.400 Normal 0.0-0.9 [facility] Comment on above: Result Comment: IG% - Immature Granulocytes (promyelocytes, myelocytes and metamyelocytes) > 1% indicates that a LEFT SHIFT is Present. Performed By: #### L 300.3900, L100.0100, L300.4310 #### [facility] [address] [place], [address] Lymphocytes/100 WBC (Bld) 25.2 % Normal 19-41 [facility] Comment on above: Performed By: #### L 300.3900, L100.0100, L300.4310 #### [facility] [address] [place], [address] MCH (RBC) [Entitic mass] 30.6 pg Normal 27.0-32.0 [facility] Comment on above: Performed By: #### L 300.3900, L100.0100, L300.4310 #### [facility] [address] [place], [address] MCHC (RBC) [Mass/Vol] 32.9 g/dL Normal 32-36 [facility] Comment on above: Performed By: #### L 300.3900, L100.0100, L300.4310 #### [facility] [address] [place], [address] MCV (RBC) [Entitic vol] 93.2 fL Normal 81-99 [facility] Comment on above: Performed By: #### L 300.3900, L100.0100, L300.4310 #### [facility] [address] [place], [address] Monocytes/100 WBC (Bld) 8.0 % Normal 0-10 [facility] Comment on above: Performed By: #### L 300.3900, L100.0100, L300.4310 #### [facility] [address] [place], [address] Neutrophils/100 WBC (Bld) 65.1 % Normal 47-70 [facility] Comment on above: Performed By: #### L 300.3900, L100.0100, L300.4310 #### [facility] [address] [place], [address] Nucleated RBC (Bld) [#/Vol] 0 10*3/uL Normal 0-5 [facility] Comment on above: Performed By: #### L 300.3900, L100.0100, L300.4310 #### [facility] [address] [place], [address] Platelet mean volume (Bld) [Entitic vol] 10.4 fL Normal 6.2-12.0 [facility] Comment on above: Performed By: #### L 300.3900, L100.0100, L300.4310 #### [facility] [address] [place], [address] Platelets (Bld) [#/Vol] 275 10*3/uL Normal 150-450 [facility] Comment on above: Performed By: #### L 300.3900, L100.0100, L300.4310 #### [facility] [address] [place], [address] RBC (Bld) [#/Vol] 4.57 10*6/uL Normal 4.2-5.4 [facility] Comment on above: Performed By: #### L 300.3900, L100.0100, L300.4310 #### [facility] [address] [place], [address] RDW SD 49.1 fl High 35.1-43.9 [facility] Comment on above: Performed By: #### L 300.3900, L100.0100, L300.4310 #### [facility] [address] [place], [address] WBC (Bld) [#/Vol] 7.3 10*3/uL Normal 4.4-11.0 [facility] Comment on above: Performed By: #### L 300.3900, L100.0100, L300.4310 #### [facility] [address] [place], [address] Eosinophil percentageOrdered By: Yaniv Pitts on 08-19-2024 Eosinophils/100 WBC (Bld) 1.0 % 0-5 [facility] Erythrocyte distribution wid th ratioOrdered By: Yaniv Pitts on 08-19-2024 Erythrocyte distribution width (RBC) [Ratio] 14.3 % 11.6-14.6 [facility] Erythrocyte distribution wid th standard deviationOrdered By: Yaniv Pitts on 08-19-2024 Erythrocyte distribution width (RBC) [Entitic vol] 49.1 fL High 35.1-43.9 [facility] Hematocrit Auto (Bld) [Volum e fraction]Ordered By: Yaniv Pitts on 08-19-2024 Hematocrit (Bld) [Volume fraction] 42.6 % 37-47 [facility] Hemoglobin measurementOrdere d By: Yaniv Pitts on 08-19-2024 Hemoglobin (Bld) [Mass/Vol] 14.0 g/dL 12.0-15.0 [facility] Immature granulocytes/100 WB C Auto (Bld)Ordered By: Yaniv Pitts on 08-19-2024 Immature granulocytes/100 WBC (Bld) 0.400 % 0.0-0.9 [facility] Comment on above: IG% - Immature Granu locytes (promyelocytes, myelocytes and metamyelocytes) > 1% indicates that a LEFT SHIFT is Present. 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 TECHNIQUE: The procedure as well as the benefits and possible complications including infection and bleeding and headache were explained to the patient. Informed consent was obtained. The patient was in the prone position. The overlying skin was prepped and draped in usual sterile fashion. Following local anesthetic application and under direct fluoroscopic guidance, a lumbar puncture was performed at the L2-L3 level. Clear CSF was not visualized. 10 cc of Isovue M [address] scan will follow. Fluoroscopy time: 34 seconds 4 images were obtained. COMPARISON: None. FINDINGS: The patient is status post multilevel intrapedicular screw and urbano fixation. No evidence of nerve root impingement or spinal stenosis seen at this examination. The patient tolerated the procedure well. CT scan will follow. RAD/Lumbar Myelogram IMPRESSION: Successful lumbar puncture and myelogram. The patient tolerated the procedure well. CT we will follow. Reading Location: [place] [address] CC: WASH OIL PUMP OPERATOR HELPERСергей Woodson; HELIO Castillo Jr. Java Developer: Signed Normal [facility] Lymphocytes Auto (Unsp spec) [#/Vol]Ordered By: Yaniv Pitts on 08-19-2024 Lymphocytes (Bld) [#/Vol] 1.85 10*3/uL 0.83-4.51 [facility] Lymphocytes/100 WBC Auto (Un sp spec)Ordered By: Yaniv Pitts on 08-19-2024 Lymphocytes/100 WBC (Bld) 25.2 % 19-41 [facility] MCV (mean corpuscular volume ) determinationOrdered By: Yaniv Pitts on 08-19-2024 MCV (RBC) [Entitic vol] 93.2 fL 81-99 [facility] Mean corpuscular hemoglobin (MCH) determinationOrdered By: Yaniv Pitts on 08-19-2024 MCH (RBC) [Entitic mass] 30.6 pg 27.0-32.0 [facility] Mean corpuscular hemoglobin concentration (MCHC) determinationOrdered By: Yaniv Pitts on 08-19-2024 MCHC (RBC) [Mass/Vol] 32.9 g/dL 32-36 [facility] Mean platelet volume determi nationOrdered By: Yaniv Pitts on 08-19-2024 Platelet mean volume (Bld) [Entitic vol] 10.4 fL 6.2-12.0 [facility] Monocyte percentageOrdered B y: Yaniv Pitts on 08-19-2024 Monocytes/100 WBC (Bld) 8.0 % 0-10 [facility] Neutrophil percentageOrdered By: Yaniv Pitts on 08-19-2024 Neutrophils/100 WBC (Bld) 65.1 % 47-70 [facility] Nucleated red blood cell per centageOrdered By: Yaniv Pitts on 08-19-2024 Nucleated RBC/100 WBC (Bld) [Ratio] 0 % 0-5 [facility] Partial Thromboplast Timeon 08-19-2024 aPTT Coag (Bld) [Time] 23.6 s Low 24.1-36.2 [facility] Comment on above: Performed By: #### L 300.3900, L100.0100, L300.4310 #### [facility] [address] [facility] [place], [place], [id number] Platelet countOrdered By: Galindo Pitts on 08-19-2024 Platelets (Bld) [#/Vol] 275 10*3/uL 150-450 [facility] Prothrombin Time w/INRon INR Coag (PPP) [Relative time] 1.0 {INR} Normal [facility] Comment on above: Performed By: #### L 300.3900, L100.0100, L300.4310 #### [facility] [address] [place], [place], [id number] PT Coag (PPP) [Time] 13.1 s Normal 11.7-14.9 [facility] Comment on above: Performed By: #### L 300.3900, L100.0100, L300.4310 #### [facility] [address] [place], [address] Prothrombin timeOrdered By: Yaniv Pitts on 08-19-2024 PT Coag (PPP) [Time] 13.1 s 11.7-14.9 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 TECHNIQUE: Lumbar spine CT with intrathecal Isovue M 200 contrast. CONTRAST: Isovue M 200 VOLUME: 10mL One or more dose reduction techniques were used (e.g., Automated exposure control, adjustment of the mA and/or kV according to patient size, use of iterative reconstruction technique). RADIATION DOSE SUMMARY: CTDlvol: 15.14 mGy DLP: 531.77 mGycm COMPARISON: None. FINDINGS: Vertebrae: Normal lumbar vertebral body heights. No evidence of fracture. No spondylolysis. Alignment: Normal lumbar lordosis. L1-2: Marked degree of disc space narrowing. Prior laminectomy and intrapedicular screw fixation. There is evidence of facet joint osteoarthritis and hypertrophy with bilateral neural foraminal stenosis right greater than left and mild degree of central canal stenosis due to hypertrophy of the ligamentum flava and minimal retrolisthesis of L1 on L2. L2-3: Moderate degree of disc space narrowing. Prior laminectomy and fusion. No significant stenosis seen. L3-4: Mild degree of retrolisthesis of L3 on L4. Facet joint osteoarthritis and hypertrophy. Bilateral neural foraminal stenosis worse on the left side. L4-5: Moderate degree of disc space narrowing. Prior laminectomy and intrapedicular screw fixation. No significant stenosis seen. L5-S1: Marked degree of disc space narrowing. Spondylosis. Marked degree of bilateral neural foraminal and central canal stenosis. Sacrum: Unremarkable CT/Spine Lumbar WITH Contrast IMPRESSION: Multilevel laminectomy and fusion as described. Spinal stenosis at multiple levels worse at the L5- S1 level. Reading Location: [place] [address] CC: SCOOTER Woodson; HELIO Castillo Jr. Java Developer: Signed Normal [facility] White blood cell (WBC) count Ordered By: Yaniv Pitts on 08-19-2024 WBC (Bld) [#/Vol] 7.3 10*3/uL 4.4-11.0 [facility] aPTT Coag (PPP) [Time]Ordere d By: Yaniv Pitts on 08-19-2024 aPTT Coag (Bld) [Time] 23.6 s Low 24.1-36.2 [facility] UDRUGon 08-16-2024 Amphetamine (u) Negative Normal Negative [facility] Comment on above: Performed By: #### U DRUG #### [address] [address] Barbiturate (u) Negative Normal Negative [facility] Comment on above: Performed By: #### U DRUG #### [address] [address] Benzodiazepine (u) Negative Normal Negative [facility] Comment on above: Performed By: #### U DRUG #### [address] [address] Cannabinoid (u) Negative Normal Negative [facility] Comment on above: Performed By: #### U DRUG #### [address] [address] Cocaine Ql (U) Negative Normal Negative [facility] Comment on above: Performed By: #### U DRUG #### [address] [address] Methadone Ql (U) Negative Normal Negative [facility] Comment on above: Performed By: #### U DRUG #### [place] [address] Opiate (u) Negative Normal Negative [facility] Comment on above: Performed By: #### U DRUG #### [place] [address] PCP (u) Negative Normal Negative [facility] Comment on above: Performed By: #### U DRUG #### [place] [address] Urine Drugs screened: See Below Normal [facility] Comment on above: Result Comment: This drug screen is a presumptive screening only. No confirmation will be performed unless requested. Drugs screened include: Threshold Amphetamines/Methamphetamines 1,000 ng/mL Barbiturates 200 ng/mL Benzodiazepine metabolites 200 ng/mL Cannabinoids (THC metabolites) 50 ng/mL Cocaine 300 ng/mL Opiates 300 ng/mL Methadone 300 ng/mL Phencyclidine (PCP) 25 ng/mL Testing has been performed FOR MEDICAL PURPOSES ONLY. Performed By: #### U DRUG #### [place] [address] XR HIP 2-3 VIEWS LEFTon 06-05 XR HIP 2-3 VIEWS LEFT ORIGINAL EXAMINATION: 2 XRAY VIEWS OF THE LEFT HIP 06/14/2024 11:44 am COMPARISON: Right hip x-ray on 04/19/2024. HISTORY: ORDERING SYSTEM PROVIDED HISTORY: Reason for Exam: M16.12, pain lt sciatica radiating into hip thigh and knee FINDINGS: There is no fracture or dislocation of the left hip. The left hip joint space is mildly narrowed. There is moderate acetabular spur formation. Left femoral head is normal in contour there is no sign of avascular necrosis. Trochanteric region is remarkable for mild enthesopathic spur formation. IMPRESSION: [id number] osteoarthritis of the left hip. 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 2D standard and 3D tomosynthesis combination imaging performed. Current study was also evaluated with a Computer Aided Detection (CAD) system. COMPARISON: Prior mammography dated 06/28/2022, 11/17/2020, 10/25/2019. HISTORY: ORDERING SYSTEM PROVIDED HISTORY: Reason for Exam: Follow up 6 months continued monitoring of right breast mass to ensure stability FINDINGS: BREAST DENSITY: There are scattered areas of fibroglandular density. Stable scattered benign-appearing calcifications are seen of the breasts bilaterally. A 5 focal asymmetry within the left breast at the 9 o'clock position middle depth appears more prominent on CC view compared to priors however compresses into normal fibroglandular tissue on spot compression tomographic views. Spot-compression demographic views of the right breast at the area of palpable abnormality appears to demonstrate a persistent asymmetry on the right MLO spot compression views. The asymmetry measures 6 mm seen 6.4 cm from the nipple. IMPRESSION: Persistent 6 mm asymmetry of the right breast corresponding with the patient's palpable abnormality. An ultrasound will be performed today and will be reported separately. Johny Rojo risk calculations, generated with the history provided, report this patient's 10 year risk and lifetime risk for developing breast cancer at 3.7% and 5.4%, respectively. Based on this assessment tool, if the patient's calculated lifetime risk is below 20%, then the patient is considered at average risk for developing breast cancer. If the patient's calculated lifetime risk is at or above 20%, then the patient is considered high risk for developing breast cancer and may be a candidate for supplemental breast MRI screening in addition to annual mammographic screening per the [employer]. BIRADS: BI-RADS: 0: Incomplete: Need Additional Imaging Evaluation RECALL: immediate RECALL TYPE: US LETTER SENT: Abnormal-Needs additional work up BI-RADS 0 Interpreted by: Felisa De Leon MD Preliminary Report By: Felisa DeL eon MD Electronically signed By Felisa De Leon MD Dictated Date: 05/30/2024 9:15:15 AM Prelim Date: 05/30/2024 10:06:40 AM Sign Date: 05/30/2024 10:06:40 AM Ordering Provider: CANDY WOODSON CLINICAL: PALPABLE LUMP RIGHT BREAST. 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 Permanently stored images were reviewed. COMPARISON: Same day mammogram. HISTORY: ORDERING SYSTEM PROVIDED HISTORY: Reason for Exam: Follow up 6 months continued monitoring of right breast mass to ensure stability FINDINGS: Ultrasonographic evaluation of the right breast was performed. At the 5 o'clock position 6 cm from the nipple there is a 0.6 x 0.2 x 0.6 cm hypoechoic lesion that is wider than tall with a slightly lobular border. There are internal echogenicities. No internal vascularity is seen. There appears to be some posterior shadowing. Overall appearance is on the basis of a probably benign likely complex cyst, fibroadenoma, or possibly dilated duct. IMPRESSION: 0.6 cm probably benign likely complex cyst, fibroadenoma, or dilated duct as described above. A 6 month follow up right breast ultrasound is recommended to demonstrate stability. Tyrer Cuzick risk calculations, generated with the history provided, report this patient's 10 year risk and lifetime risk for developing breast cancer at 3.7% and 5.4%, respectively. Based on this assessment tool, if the patient's calculated lifetime risk is below 20%, then the patient is considered at average risk for developing breast cancer. If the patient's calculated lifetime risk is at or above 20%, then the patient is considered high risk for developing breast cancer and may be a candidate for supplemental breast MRI screening in addition to annual mammographic screening per the [employer]. BIRADS: BI-RADS: 3: Probably Benign RECALL: 6 month follow-up RECALL TYPE: US LETTER SENT: Probably Benign BI-RADS 3 Interpreted by: Felisa De Leon MD Preliminary Report By: Felisa De Leon MD Electronically signed By Felisa De Leon MD Dictated Date: 05/30/2024 10:06:53 AM Prelim Date: 05/30/2024 10:09:20 AM Sign Date: 05/30/2024 10:09:20 AM Ordering Provider: CANDY WOODSON CLINICAL: PALPABLE LUMP RIGHT BREAST. Paginator: TRACEY INIGUEZ RT(R)(M) RDMS letter sent: Probably Benign BI-RADS 3 Ultrasound BI-RADS: 3 Probably benign Normal [facility] XR HIP 2-3 VIEWS RIGHTon XR HIP 2-3 VIEWS RIGHT ORIGINAL EXAMINATION: 2 XRAY VIEWS OF THE RIGHT HIP 04/19/2024 10:30 am COMPARISON: None. 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 Acetabular over coverage versus remodeling at the superolateral joint space. There is some increased heterogeneous sclerosis of the femoral head which may be related to subchondral sclerosis and cystic change however underlying avascular necrosis cannot be excluded. No acute fracture. Degenerative changes of the partially visualized SI joint. Interpreted by: Stephenie Gómez Preliminary Report By: Stephenie Gómez Electronically signed By Stephenie Gómez Dictated Date: 04/19/2024 2:45:07 PM Prelim Date: 04/19/2024 2:46:28 PM Sign Date: 04/19/2024 2:46:28 PM Ordering Provider: MAURIZIO Shirley [facility] XR SPINE LUMBAR AP/LATon XR SPINE LUMBAR AP/LAT ORIGINAL EXAMINATION: AP and lateral 3 XRAY VIEWS OF THE LUMBAR SPINE04/19/2024 10:31 am COMPARISON: 11/17/2016 HISTORY: ORDERING SYSTEM PROVIDED HISTORY: Reason for Exam: M96.1, FINDINGS: There is interval surgery in the thoraco lumbar spine. Multilevel laminectomy is present in the lower lumbar region and there are pedicle screws extending through the entire lumbar spine to the S1 level and also in to the T11 and T12 vertebra. There may be some lucency around the S1 screws on the AP view. No other hardware complication is seen. Disc space narrowing and endplate spurring at L5-S1 with other degenerative changes. No vertebral compression deformity or significant listhesis. IMPRESSION: Degenerative and postop changes. Question mild loosening of the S1 pedicle screws. Interpreted by: Ayo Bajwa MD Preliminary Report By: Ayo Bajwa MD Electronically signed By Ayo Bajwa MD Dictated Date: 04/19/2024 2:51:11 PM Prelim Date: 04/19/2024 2:52:45 PM Sign Date: 04/19/2024 2:52:45 PM Ordering Provider: MAURIZIO Shirley [facility] .Auto Diffon 04-15-2024 Basophil, Absolute 0.0 10 3/mcL Normal 0.0-0.2 [facility] Comment on above: Performed By: #### C BC, GFR, ADIFF, LIPID, CMP, VIDH, ANEU #### [address] [address] Basophils/100 WBC (Bld) 0.5 % Normal 0.0-2.5 [facility] Comment on above: Performed By: #### C BC, GFR, ADIFF, LIPID, CMP, VIDH, ANEU #### [address] [address] Eosinophil, Absolute 0.3 10 3/mcL Normal 0.0-0.7 [facility] Comment on above: Performed By: #### C BC, GFR, ADIFF, LIPID, CMP, VIDH, ANEU #### [address] [address] Eosinophils/100 WBC (Bld) 4.1 % Normal 0.0-7.0 [facility] Comment on above: Performed By: #### C BC, GFR, ADIFF, LIPID, CMP, VIDH, ANEU #### [address] [address] Lymphocyte, Absolute 1.8 10 3/mcL Normal 0.9-4.3 [facility] Comment on above: Performed By: #### C BC, GFR, ADIFF, LIPID, CMP, VIDH, ANEU #### [address] [address] Lymphocytes/100 WBC (Bld) 23.4 % Normal 20.0-40.0 [facility] Comment on above: Performed By: #### C BC, GFR, ADIFF, LIPID, CMP, VIDH, ANEU #### [address] [address] Monocyte, Absolute 0.8 10 3/mcL Normal 0.1-1.4 [facility] Comment on above: Performed By: #### C BC, GFR, ADIFF, LIPID, CMP, VIDH, ANEU #### [address] [address] Monocytes/100 WBC (Bld) 10.1 % Normal 2.0-13.0 [facility] Comment on above: Performed By: #### C BC, GFR, ADIFF, LIPID, CMP, VIDH, ANEU #### [address] [address] Neutrophils/100 WBC (Bld) 61.9 % Normal 50.0-75.0 [facility] Comment on above: Performed By: #### C BC, GFR, ADIFF, LIPID, CMP, VIDH, ANEU #### [address] [address] .GFRon 04-15-2024 GFR 72 ml/min/1.73sqm Normal [facility] Comment on above: Result Comment: GFR Population mean for , Non- Americans Ages 20-29 = 116 mL/min/1.73 sq.m. Ages 30-39 = 107 mL/min/1.73 sq.m. Ages 40-49 = 99 mL/min/1.73 sq.m. Ages 50-59 = 93 mL/min/1.73 sq.m. Ages 60-69 = 85 mL/min/1.73 sq.m. Ages 70+ = 75 mL/min/1.73 sq.m. Chronic Kidney Disease: Less than 60 mL/min/1.73 square meters End Stage Renal Disease: Less than 15 mL/min/1.73 square meters Performed By: #### C BC, GFR, ADIFF, LIPID, CMP, VIDH, ANEU #### [address] [address] GFR Non- 60 ml/min/1.73sqm Normal [facility] Comment on above: Result Comment: GFR Population mean for , Non- Americans Ages 20-29 = 116 mL/min/1.73 sq.m. Ages 30-39 = 107 mL/min/1.73 sq.m. Ages 40-49 = 99 mL/min/1.73 sq.m. Ages 50-59 = 93 mL/min/1.73 sq.m. Ages 60-69 = 85 mL/min/1.73 sq.m. Ages 70+ = 75 mL/min/1.73 sq.m. Chronic Kidney Disease: Less than 60 mL/min/1.73 square meters End Stage Renal Disease: Less than 15 mL/min/1.73 square meters Performed By: #### C BC, GFR, ADIFF, LIPID, CMP, VIDH, ANEU #### [address] [address] .NEUABSon 04-15-2024 Neutrophil, Absolute 4.6 10 3/mcL Normal 2.3-8.1 [facility] Comment on above: Performed By: #### C BC, GFR, ADIFF, LIPID, CMP, VIDH, ANEU #### [address] [address] CBCon 04-15-2024 Erythrocyte distribution width (RBC) [Ratio] 14.2 % Normal 11.5-15.5 [facility] Comment on above: Performed By: #### C BC, GFR, ADIFF, LIPID, CMP, VIDH, ANEU #### [place] [address] Hematocrit (Bld) [Volume fraction] 40.2 % Normal 34.0-46.0 [facility] Comment on above: Performed By: #### C BC, GFR, ADIFF, LIPID, CMP, VIDH, ANEU #### [place] [id number] Hgb 13.4 G/dL Normal 12.0-16.0 [facility] Comment on above: Performed By: #### C BC, GFR, ADIFF, LIPID, CMP, VIDH, ANEU #### [place] [address] MCH (RBC) [Entitic mass] 30.7 pg Normal 27.0-33.0 [facility] Comment on above: Performed By: #### C BC, GFR, ADIFF, LIPID, CMP, VIDH, ANEU #### [address] [address] MCHC 33.2 G/dL Normal 32.0-36.0 [facility] Comment on above: Performed By: #### C BC, GFR, ADIFF, LIPID, CMP, VIDH, ANEU #### [address] [address] MCV (RBC) [Entitic vol] 92.5 fL Normal 80.0-99.0 [facility] Comment on above: Performed By: #### C BC, GFR, ADIFF, LIPID, CMP, VIDH, ANEU #### [address] [address] Platelet 290 10 3/mcL Normal 150-450 [facility] Comment on above: Performed By: #### C BC, GFR, ADIFF, LIPID, CMP, VIDH, ANEU #### [address] [address] Platelet mean volume (Bld) [Entitic vol] 8.4 fL Normal 6.6-10.5 [facility] Comment on above: Performed By: #### C BC, GFR, ADIFF, LIPID, CMP, VIDH, ANEU #### [address] [address] RBC 4.35 10 6/mcL Normal 4.10-5.30 [facility] Comment on above: Performed By: #### C BC, GFR, ADIFF, LIPID, CMP, VIDH, ANEU #### [address] [address] WBC 7.5 10 3/mcL Normal 4.5-10.8 [facility] Comment on above: Performed By: #### C BC, GFR, ADIFF, LIPID, CMP, VIDH, ANEU #### [address] [address] CMPon 04-15-2024 Albumin Level 3.6 G/dL Normal 3.4-4.8 [facility] Comment on above: Performed By: #### C BC, GFR, ADIFF, LIPID, CMP, VIDH, ANEU #### [address] [address] Albumin/Globulin [Mass ratio] 1.2 {ratio} Normal 1.1-2.5 [facility] Comment on above: Performed By: #### C BC, GFR, ADIFF, LIPID, CMP, VIDH, ANEU #### [address] [address] ALP [Catalytic activity/Vol] 117 U/L Normal 40-135 [facility] Comment on above: Performed By: #### C BC, GFR, ADIFF, LIPID, CMP, VIDH, ANEU #### [address] [address] ALT [Catalytic activity/Vol] 30 U/L Normal 14-59 [facility] Comment on above: Performed By: #### C BC, GFR, ADIFF, LIPID, CMP, VIDH, ANEU #### [place] [address] AST [Catalytic activity/Vol] 29 U/L Normal 10-40 [facility] Comment on above: Performed By: #### C BC, GFR, ADIFF, LIPID, CMP, VIDH, ANEU #### [address] [address] Bili Total 0.4 mg/dL Normal 0.2-1.0 [facility] Comment on above: Result Comment: Use of this assay is not recommended for patients undergoing treatment with eltrombopag due to the potential for falsely elevated results. Performed By: #### C BC, GFR, ADIFF, LIPID, CMP, VIDH, ANEU #### [address] [address] BUN/Creatinine Ratio 24 ratio Normal 7-27 [facility] Comment on above: Performed By: #### C BC, GFR, ADIFF, LIPID, CMP, VIDH, ANEU #### [address] [address] Calcium [Mass/Vol] 9.5 mg/dL Normal 8.4-10.2 [facility] Comment on above: Performed By: #### C BC, GFR, ADIFF, LIPID, CMP, VIDH, ANEU #### [address] [address] Chloride [Moles/Vol] 105 mmol/L Normal 98-107 [facility] Comment on above: Performed By: #### C BC, GFR, ADIFF, LIPID, CMP, VIDH, ANEU #### [address] [address] CO2 [Moles/Vol] 31 mmol/L Normal 23-31 [facility] Comment on above: Performed By: #### C BC, GFR, ADIFF, LIPID, CMP, VIDH, ANEU #### [place] [phone] Creatinine [Mass/Vol] 0.93 mg/dL Normal 0.55-1.02 [facility] Comment on above: Result Comment: Test ing performed on Siemens Dimension EXL analyzer using a modified kinetic Tish technique. Performed By: #### C BC, GFR, ADIFF, LIPID, CMP, VIDH, ANEU #### [address] [address] Electrolyte Balance 3.0 mEq/L Low 4.0-15.0 [facility] Comment on above: Performed By: #### C BC, GFR, ADIFF, LIPID, CMP, VIDH, ANEU #### [address] [address] Globulin 3.1 G/dL Normal [facility] Comment on above: Performed By: #### C BC, GFR, ADIFF, LIPID, CMP, VIDH, ANEU #### [address] [address] Glucose [Mass/Vol] 80 mg/dL Low 83-110 [facility] Comment on above: Performed By: #### C BC, GFR, ADIFF, LIPID, CMP, VIDH, ANEU #### [address] [address] Potassium [Moles/Vol] 6.0 mmol/L High 3.5-5.1 [facility] Comment on above: Performed By: #### C BC, GFR, ADIFF, LIPID, CMP, VIDH, ANEU #### [address] [address] Sodium [Moles/Vol] 139 mmol/L Normal 136-145 [facility] Comment on above: Performed By: #### C BC, GFR, ADIFF, LIPID, CMP, VIDH, ANEU #### [address] [address] Total Protein 6.7 G/dL Normal 6.4-8.2 [facility] Comment on above: Performed By: #### C BC, GFR, ADIFF, LIPID, CMP, VIDH, ANEU #### [address] [address] Urea nitrogen [Mass/Vol] 22 mg/dL High 7-18 [facility] Comment on above: Performed By: #### C BC, GFR, ADIFF, LIPID, CMP, VIDH, ANEU #### [address] [address] LABORATORYOrdered By: Susan Quinones on 04-15-2024 Albumin DL <= 20 mg/L (U) [Mass/Vol] 1495 mcg/dL Invalid Interpretation Code AO ADM SS Albumin/Creatinine DL <= 20 mg/L (U) [Mass ratio] 13 mcg/mg Normal 0 - 30 mcg/mg AO ADM SS Creatinine (U) [Mass/Vol] 113.3 mg/dL Normal 28.0 - 117.0 mg/dL AO ADM SS Cholesterol [Mass/Vol] 168 mg/dL Normal 0 - 2 00 mg/dL AO ADM SS Comment on above: Interpretive Data: C holesterol Reference Interval: Less than 200 Desirable 200-239 Borderline high risk 240 and above High risk Cholesterol in HDL [Mass/Vol] 49 mg/dL Normal 40 - 60 mg/dL AO ADM SS Cholesterol in LDL [Mass/Vol] 97 mg/dL Normal 0 - 130 mg/dL AO ADM SS Triglyceride [Mass/Vol] 112 mg/dL Normal 0 - 150 mg/dL AO ADM SS Comment on above: Interpretive Data: T riglyceride Reference Interval: Less than 150 Normal 150-199 Borderline high risk 200-499 High risk 500 or higher Very high risk LABORATORYOrdered By: SYSTEM SYSTEM on 04-15-2024 25-hydroxyvitamin D3 [Mass/Vol] 46.2 ng/mL Invalid Interpretation Code AO ADM SS Comment on above: Interpretive Data: I nterpretive Values Based on Total 25(OH) Vitamin D: Deficient <20 ng/mL Insufficient 20 - <30 ng/mL Sufficient 30-100 ng/mL Albumin BCP dye [Mass/Vol] 3.6 G/dL Normal 3.4 - 4.8 G/dL AO ADM SS Albumin/Globulin [Mass ratio] 1.2 {ratio} Normal 1.1 - 2.5 ratio AO ADM SS ALP [Catalytic activity/Vol] 117 U/L Normal 40 - 135 U/L AO ADM SS ALT With P-5'-P [Catalytic activity/Vol] 30 U/L Normal 14 - 59 U/L AO ADM SS AST With P-5'-P [Catalytic activity/Vol] 29 U/L Normal 10 - 40 U/L AO ADM SS Basophils (Bld) [#/Vol] 0.0 103/mcL Normal 0.0 - 0.2 10^3/mcL AO Workflow SS Basophils/100 WBC (Bld) 0.5 % Normal 0.0 - 2.5 % AO Workflow SS Bilirubin [Mass/Vol] 0.4 mg/dL Normal 0.2 - 1 .0 mg/dL AO ADM SS Comment on above: Interpretive Data: U se of this assay is not recommended for patients undergoing treatment with eltrombopag due to the potential for falsely elevated results. Calcium [Mass/Vol] 9.5 mg/dL Normal 8.4 - 10. 2 mg/dL AO ADM SS Chloride [Moles/Vol] 105 mmol/L Normal 98 - 10 7 mmol/L AO ADM SS CO2 [Moles/Vol] 31 mmol/L Normal 23 - 31 mmol/L AO ADM SS Creatinine [Mass/Vol] 0.93 mg/dL Normal 0.55 - 1.02 mg/dL AO ADM SS Comment on above: Interpretive Data: T esting performed on Siemens Dimension EXL analyzer using a modified kinetic Tish technique. Electrolyte Balance 3.0 mEq/L Low 4.0 - 15 .0 mEq/L AO ADM SS Eosinophil, Absolute 0.3 103/mcL Normal 0.0 - 0 .7 10^3/mcL AO Workflow SS Eosinophils/100 WBC (Bld) 4.1 % Normal 0.0 - 7.0 % AO Workflow SS Erythrocyte distribution width (RBC) [Ratio] 14.2 % Normal 11.5 - 15.5 % AO Workflow SS GFR/1.73 sq M.predicted among blacks MDRD (S/P/Bld) [Vol rate/Area] 72 ml/min/1.73sqm Invalid Interpretation Code AO Chemistry S Comment on above: Interpretive Data: GFR Population mean for , Non- Americans Ages 20-29 = 116 mL/min/1.73 sq.m. Ages 30-39 = 107 mL/min/1.73 sq.m. Ages 40-49 = 99 mL/min/1.73 sq.m. Ages 50-59 = 93 mL/min/1.73 sq.m. Ages 60-69 = 85 mL/min/1.73 sq.m. Ages 70+ = 75 mL/min/1.73 sq.m. Chronic Kidney Disease: Less than 60 mL/min/1.73 square meters End Stage Renal Disease: Less than 15 mL/min/1.73 square meters GFR/1.73 sq M.predicted among non-blacks MDRD (S/P/Bld) [Vol rate/Area] 60 ml/min/1.73sqm Invalid Interpretation Code AO Chemistry S Comment on above: Interpretive Data: GFR Population mean for , Non- Americans Ages 20-29 = 116 mL/min/1.73 sq.m. Ages 30-39 = 107 mL/min/1.73 sq.m. Ages 40-49 = 99 mL/min/1.73 sq.m. Ages 50-59 = 93 mL/min/1.73 sq.m. Ages 60-69 = 85 mL/min/1.73 sq.m. Ages 70+ = 75 mL/min/1.73 sq.m. Chronic Kidney Disease: Less than 60 mL/min/1.73 square meters End Stage Renal Disease: Less than 15 mL/min/1.73 square meters Globulin 3.1 G/dL Invalid Interpretation Code AO ADM SS Glucose [Mass/Vol] 80 mg/dL Low 83 - 110 mg/dL AO ADM SS Hematocrit (Bld) [Volume fraction] 40.2 % Normal 34.0 - 46.0 % AO Workflow SS Hemoglobin (Bld) [Mass/Vol] 13.4 G/dL Normal 12.0 - 16.0 G/dL AO Workflow SS Lymphocytes (Bld) [#/Vol] 1.8 103/mcL Normal 0.9 - 4.3 10^3/mcL AO Workflow SS Lymphocytes/100 WBC (Bld) 23.4 % Normal 20.0 - 40.0 % AO Workflow SS MCH (RBC) [Entitic mass] 30.7 pg Normal 27. 0 - 33.0 pg AO Workflow SS MCHC 33.2 G/dL Normal 32.0 - 36.0 G/dL AO Workflow SS MCV (RBC) [Entitic vol] 92.5 fL Normal 80.0 - 99.0 fL AO Workflow SS Monocytes (Bld) [#/Vol] 0.8 103/mcL Normal 0.1 - 1.4 10^3/mcL AO Workflow SS Monocytes/100 WBC (Bld) 10.1 % Normal 2.0 - 13.0 % AO Workflow SS Neutrophils (Bld) [#/Vol] 4.6 103/mcL Normal 2.3 - 8.1 10^3/mcL AO Workflow SS Neutrophils/100 WBC (Bld) 61.9 % Normal 50.0 - 75.0 % AO Workflow SS Platelet mean volume (Bld) [Entitic vol] 8.4 fL Normal 6.6 - 10.5 fL AO Workflow SS Platelets (Bld) [#/Vol] 290 103/mcL Normal 150 - 450 10^3/mcL AO Workflow SS Potassium [Moles/Vol] 6.0 mmol/L High 3.5 - 5.1 mmol/L AO ADM SS Protein [Mass/Vol] 6.7 G/dL Normal 6.4 - 8.2 G/dL AO ADM SS RBC (Bld) [#/Vol] 4.35 106/mcL Normal 4.10 - 5.3 0 10^6/mcL AO Workflow SS Sodium [Moles/Vol] 139 mmol/L Normal 136 - 145 mmol/L AO ADM SS Urea nitrogen [Mass/Vol] 22 mg/dL High 7 - 18 mg/d L AO ADM SS Urea nitrogen/Creatinine [Mass ratio] 24 ratio Normal 7 - 27 ratio AO ADM SS WBC (Bld) [#/Vol] 7.5 103/mcL Normal 4.5 - 10.8 10^3/mcL AO Workflow SS LIPIDon 04-15-2024 Cholesterol [Mass/Vol] 168 mg/dL Normal 0-200 [facility] Comment on above: Result Comment: Chol esterol Reference Interval: Less than 200 Desirable 200-239 Borderline high risk 240 and above High risk Performed By: #### C BC, GFR, ADIFF, LIPID, CMP, VIDH, ANEU #### [address] [address] Cholesterol in HDL [Mass/Vol] 49 mg/dL Normal 40-60 [facility] Comment on above: Performed By: #### C BC, GFR, ADIFF, LIPID, CMP, VIDH, ANEU #### [address] [address] Cholesterol in LDL [Mass/Vol] 97 mg/dL Normal 0-130 [facility] Comment on above: Performed By: #### C BC, GFR, ADIFF, LIPID, CMP, VIDH, ANEU #### [address] [address] Triglyceride [Mass/Vol] 112 mg/dL Normal 0-150 [facility] Comment on above: Result Comment: Trig lyceride Reference Interval: Less than 150 Normal 150-199 Borderline high risk 200-499 High risk 500 or higher Very high risk Performed By: #### C BC, GFR, ADIFF, LIPID, CMP, VIDH, ANEU #### [address] [address] MALBRon 04-15-2024 U Creatinine 113.3 mg/dL Normal 28.0-117.0 [facility] Comment on above: Performed By: #### M ALBR ####[address] [address] U Microalb 1495 mcg/dL Normal [facility] Comment on above: Performed By: #### M ALBR ####[address] [address] U Ratio Alb/Cre 13 mcg/mg Normal 0-30 [facility] Comment on above: Performed By: #### M ALBR ####[facility] [place], [place] [address] VIDHon 04-15-2024 Vit. D 25-Hydroxy 46.2 ng/mL Normal [facility] Comment on above: Result Comment: Inte rpretive Values Based on Total 25(OH) Vitamin D: Deficient <20 ng/mL Insufficient 20 - <30 ng/mL Sufficient 30-100 ng/mL Performed By: #### C BC, GFR, ADIFF, LIPID, CMP, VIDH, ANEU #### [facility] [address] [place], [place] [address] Breast Limited Unilateralon 10-20-2023 Breast Limited Unilateral [facility] Imaging Services [address] [place] [id number] Breast Limited Unilateral MR#: [id number] Acct: [id number] Name: FILIBERTO VALDIVIA Rep #: [id number] : 1955 F 68 From: Candy Tao MD PCP: SCOOTER Newton Status: [facility] CLI Study: Breast Limited Unilateral Date of Exam: Exam# [id number] Ordering Dr: Candy Woodson NP [employer] PU[employer] OPERATOR HELPER-C -[id number] STUDY: ULTRASOUND BREAST - RIGHT REASON FOR EXAM: Female, 68 years old. Palpable mass TECHNIQUE: Axial and longitudinal images of the RIGHT breast were performed with a high resolution ultrasound transducer. # OF IMAGES: 14 COMPARISON: Diagnostic mammogram earlier today FINDINGS: RIGHT Breast: Heterogeneous background echotexture. Multiple longitudinal and transverse ultrasound images of the inferior right breast in the area of the palpable abnormality do not demonstrate a discrete solid or cystic mass most consistent with normal breast parenchyma.: US/Breast Limited Unilateral IMPRESSION: Normal diagnostic mammogram and right breast ultrasound. However, biopsy of any palpable abnormality should be performed if clinically indicated. ASSESSMENT CATEGORY: BIRADS Category 1: Negative. A letter regarding these results will be sent to the patient by the facility within 30 days. Electronically Signed: Candy Tao MD at 11:16 EDT , CC: W[employer] PU[employer] OPERATOR HELPER-C Candy Woodson Jr. Java Developer: Signed Normal [facility] DIAG MAMM W/CAD, BILATon DIAG MAMM W/CAD, [facility] Imaging Services [address] [place] [address] DIAG MAMM W/CAD, BIL MR#: [id number] Acct: [id number] Name: FILIBERTO VALDIVIA Rep #: [id number] : 1955 F 68 From: Yaniv willams MD PCP: SCOOTER Newton Status: [facility] I Study: DIAG MAMM W/CAD, BILAT Date of Exam: 10/20/23 Exam# [id number] Ordering Dr: Candy Woodson NP -[id number] MAMMOGRAPHY - BILATERAL DIAGNOSTIC REASON FOR EXAM: Female, 68 years old. Right breast lump. PERTINENT HISTORY: Non-contributory. TECHNIQUE: Digital bilateral breast trav (3D mammographic acquisition) in the CC and MLO projections. 2-D mediolateral oblique (MLO) and craniocaudad (CC) views of both breasts were obtained. CAD: Full Field Digital Mammography with Computer Added Detection was performed. COMPARISON: Comparison is made with prior outside examination dated December 26, 2022. FINDINGS: Breast Composition: The breasts are heterogeneously dense, which may obscure small masses. There are no dominant masses or suspicious calcifications. No other significant abnormalities are identified. There has been no significant change since the prior study. BI/DIAG MAMM W/CAD, BILAT IMPRESSION: Negative diagnostic mammogram. With the patient''s history of a palpable lump in the inferior anterior medial aspect of the right breast, correlation with ultrasound is recommended. ASSESSMENT CATEGORY: BIRADS Category 0: Incomplete. Need additional imaging evaluation. A letter regarding these results will be sent to the patient by the facility within 30 days. Approximately 10% of breast cancers are not detected by mammography. A normal mammogram should not delay biopsy of a clinically suspicious abnormality. Electronically Signed: Yaniv Pitts MD at 15:04 EDT Reading Location ID and State: [facility] / [place] , Service support , CC: SCOOTER Wodoson Jr. Java Developer: Signed Normal [facility] .GFRon 10-06-2023 GFR 80 ml/min/1.73sqm Normal [facility] ([place]) Comment on above: Result Comment: GFR Population mean for , Non- Americans Ages 20-29 = 116 mL/min/1.73 sq.m. Ages 30-39 = 107 mL/min/1.73 sq.m. Ages 40-49 = 99 mL/min/1.73 sq.m. Ages 50-59 = 93 mL/min/1.73 sq.m. Ages 60-69 = 85 mL/min/1.73 sq.m. Ages 70+ = 75 mL/min/1.73 sq.m. Chronic Kidney Disease: Less than 60 mL/min/1.73 square meters End Stage Renal Disease: Less than 15 mL/min/1.73 square meters Performed By: #### C MP, LIPID, VIDH, GFR #### [address] [address] GFR Non- 66 ml/min/1.73sqm Normal [facility] ([place]) Comment on above: Result Comment: GFR Population mean for , Non- Americans Ages 20-29 = 116 mL/min/1.73 sq.m. Ages 30-39 = 107 mL/min/1.73 sq.m. Ages 40-49 = 99 mL/min/1.73 sq.m. Ages 50-59 = 93 mL/min/1.73 sq.m. Ages 60-69 = 85 mL/min/1.73 sq.m. Ages 70+ = 75 mL/min/1.73 sq.m. Chronic Kidney Disease: Less than 60 mL/min/1.73 square meters End Stage Renal Disease: Less than 15 mL/min/1.73 square meters Performed By: #### C MP, LIPID, VIDH, GFR #### [address] [address] CMPon 10-06-2023 Albumin Level 3.6 G/dL Normal 3.4-4.8 [facility] ([place]) Comment on above: Performed By: #### C MP, LIPID, VIDH, GFR #### [address] [address] Albumin/Globulin [Mass ratio] 1.0 {ratio} Low 1.1-2.5 [facility] ([place]) Comment on above: Performed By: #### C MP, LIPID, VIDH, GFR #### [address] [address] ALP [Catalytic activity/Vol] 132 U/L Normal 40-135 [facility] ([place]) Comment on above: Performed By: #### C MP, LIPID, VIDH, GFR #### [address] [address] ALT [Catalytic activity/Vol] 25 U/L Normal 14-59 [facility] ([place]) Comment on above: Performed By: #### C MP, LIPID, VIDH, GFR #### [address] [address] AST [Catalytic activity/Vol] 18 U/L Normal 10-40 [facility] ([place]) Comment on above: Performed By: #### C MP, LIPID, VIDH, GFR #### [address] [address] Bili Total 0.4 mg/dL Normal 0.2-1.0 [facility] ([place]) Comment on above: Result Comment: Use of this assay is not recommended for patients undergoing treatment with eltrombopag due to the potential for falsely elevated results. Performed By: #### C MP, LIPID, VIDH, GFR #### [place] [address] BUN/Creatinine Ratio 22 ratio Normal 7-27 [facility] ([place]) Comment on above: Performed By: #### C MP, LIPID, VIDH, GFR #### [address] [address] Calcium [Mass/Vol] 9.2 mg/dL Normal 8.4-10.2 [facility] ([place]) Comment on above: Performed By: #### C MP, LIPID, VIDH, GFR #### [address] [address] Chloride [Moles/Vol] 104 mmol/L Normal 98-107 [facility] ([place]) Comment on above: Performed By: #### C MP, LIPID, VIDH, GFR #### [address] [address] CO2 [Moles/Vol] 27 mmol/L Normal 23-31 [facility] ([place]) Comment on above: Performed By: #### C MP, LIPID, VIDH, GFR #### [address] [address] Creatinine [Mass/Vol] 0.85 mg/dL Normal 0.55-1.02 [facility] ([place]) Comment on above: Performed By: #### C MP, LIPID, VIDH, GFR #### [address] [address] Electrolyte Balance 11.0 mEq/L Normal 4.0-15.0 [facility] ([place]) Comment on above: Performed By: #### C MP, LIPID, VIDH, GFR #### [address] [address] Globulin 3.6 G/dL Normal [facility] ([place]) Comment on above: Performed By: #### C MP, LIPID, VIDH, GFR #### [address] [address] Glucose [Mass/Vol] 87 mg/dL Normal 83-110 [facility] ([place] Comment on above: Performed By: #### C MP, LIPID, VIDH, GFR #### [address] [address] Potassium [Moles/Vol] 4.9 mmol/L Normal 3.5-5.1 [facility] ([place]) Comment on above: Performed By: #### C MP, LIPID, VIDH, GFR #### [address] [address] Sodium [Moles/Vol] 142 mmol/L Normal 136-145 [facility] ([place] Comment on above: Performed By: #### C MP, LIPID, VIDH, GFR #### [address] [address] Total Protein 7.2 G/dL Normal 6.4-8.2 [facility] ([place]) Comment on above: Performed By: #### C MP, LIPID, VIDH, GFR #### [address] [address] Urea nitrogen [Mass/Vol] 19 mg/dL High 7-18 [facility] ([place]) Comment on above: Performed By: #### C MP, LIPID, VIDH, GFR #### [address] [address] LABORATORYOrdered By: SYSTEM SYSTEM on 10-06-2023 25-hydroxyvitamin D3 [Mass/Vol] 37.7 ng/mL Invalid Interpretation Code AO ADM SS Comment on above: Interpretive Data: I nterpretive Values Based on Total 25(OH) Vitamin D: Deficient <20 ng/mL Insufficient 20 - <30 ng/mL Sufficient 30-100 ng/mL Albumin BCP dye [Mass/Vol] 3.6 G/dL Normal 3.4 - 4.8 G/dL AO ADM SS Albumin/Globulin [Mass ratio] 1.0 {ratio} Low 1.1 - 2.5 ratio AO ADM SS ALP [Catalytic activity/Vol] 132 U/L Normal 40 - 135 U/L AO ADM SS ALT With P-5'-P [Catalytic activity/Vol] 25 U/L Normal 14 - 59 U/L AO ADM SS AST With P-5'-P [Catalytic activity/Vol] 18 U/L Normal 10 - 40 U/L AO ADM SS Bilirubin [Mass/Vol] 0.4 mg/dL Normal 0.2 - 1 .0 mg/dL AO ADM SS Comment on above: Interpretive Data: U se of this assay is not recommended for patients undergoing treatment with eltrombopag due to the potential for falsely elevated results. Calcium [Mass/Vol] 9.2 mg/dL Normal 8.4 - 10. 2 mg/dL AO ADM SS Chloride [Moles/Vol] 104 mmol/L Normal 98 - 10 7 mmol/L AO ADM SS CO2 [Moles/Vol] 27 mmol/L Normal 23 - 31 mmol/L AO ADM SS Creatinine [Mass/Vol] 0.85 mg/dL Normal 0.55 - 1.02 mg/dL AO ADM SS Electrolyte Balance 11.0 mEq/L Normal 4.0 - 15 .0 mEq/L AO ADM SS GFR/1.73 sq M.predicted among blacks MDRD (S/P/Bld) [Vol rate/Area] 80 ml/min/1.73sqm Invalid Interpretation Code AO Chemistry S Comment on above: Interpretive Data: GFR Population mean for , Non- Americans Ages 20-29 = 116 mL/min/1.73 sq.m. Ages 30-39 = 107 mL/min/1.73 sq.m. Ages 40-49 = 99 mL/min/1.73 sq.m. Ages 50-59 = 93 mL/min/1.73 sq.m. Ages 60-69 = 85 mL/min/1.73 sq.m. Ages 70+ = 75 mL/min/1.73 sq.m. Chronic Kidney Disease: Less than 60 mL/min/1.73 square meters End Stage Renal Disease: Less than 15 mL/min/1.73 square meters GFR/1.73 sq M.predicted among non-blacks MDRD (S/P/Bld) [Vol rate/Area] 66 ml/min/1.73sqm Invalid Interpretation Code AO Chemistry S Comment on above: Interpretive Data: GFR Population mean for , Non- Americans Ages 20-29 = 116 mL/min/1.73 sq.m. Ages 30-39 = 107 mL/min/1.73 sq.m. Ages 40-49 = 99 mL/min/1.73 sq.m. Ages 50-59 = 93 mL/min/1.73 sq.m. Ages 60-69 = 85 mL/min/1.73 sq.m. Ages 70+ = 75 mL/min/1.73 sq.m. Chronic Kidney Disease: Less than 60 mL/min/1.73 square meters End Stage Renal Disease: Less than 15 mL/min/1.73 square meters Globulin 3.6 G/dL Invalid Interpretation Code AO ADM SS Glucose [Mass/Vol] 87 mg/dL Normal 83 - 110 mg/dL AO ADM SS Potassium [Moles/Vol] 4.9 mmol/L Normal 3.5 - 5.1 mmol/L AO ADM SS Protein [Mass/Vol] 7.2 G/dL Normal 6.4 - 8.2 G/dL AO ADM SS Sodium [Moles/Vol] 142 mmol/L Normal 136 - 145 mmol/L AO ADM SS Urea nitrogen [Mass/Vol] 19 mg/dL High 7 - 18 mg/d L AO ADM SS Urea nitrogen/Creatinine [Mass ratio] 22 ratio Normal 7 - 27 ratio AO ADM SS LABORATORYOrdered By: Fatuma Gupta on 10-06-2023 Cholesterol [Mass/Vol] 195 mg/dL Normal 0 - 2 00 mg/dL AO ADM SS Comment on above: Interpretive Data: C holesterol Reference Interval: Less than 200 Desirable 200-239 Borderline high risk 240 and above High risk Cholesterol in HDL [Mass/Vol] 55 mg/dL Normal 40 - 60 mg/dL AO ADM SS Cholesterol in LDL [Mass/Vol] 104 mg/dL Normal 0 - 130 mg/dL AO ADM SS Triglyceride [Mass/Vol] 179 mg/dL High 0 - 150 mg/dL AO ADM SS Comment on above: Interpretive Data: T riglyceride Reference Interval: Less than 150 Normal 150-199 Borderline high risk 200-499 High risk 500 or higher Very high risk LIPIDon 10-06-2023 Cholesterol [Mass/Vol] 195 mg/dL Normal 0-200 [facility] ([place]) Comment on above: Result Comment: Chol esterol Reference Interval: Less than 200 Desirable 200-239 Borderline high risk 240 and above High risk Performed By: #### C MP, LIPID, VIDH, GFR #### [address] [address] Cholesterol in HDL [Mass/Vol] 55 mg/dL Normal 40-60 [facility] ([place]) Comment on above: Performed By: #### C MP, LIPID, VIDH, GFR #### [address] [address] Cholesterol in LDL [Mass/Vol] 104 mg/dL Normal 0-130 [facility] ([place]) Comment on above: Performed By: #### C MP, LIPID, VIDH, GFR #### [address] [address] Triglyceride [Mass/Vol] 179 mg/dL High 0-150 [facility] ([place]) Comment on above: Result Comment: Trig lyceride Reference Interval: Less than 150 Normal 150-199 Borderline high risk 200-499 High risk 500 or higher Very high risk Performed By: #### C MP, LIPID, VIDH, GFR #### [address] [address] VIDHon 10-06-2023 Vit. D 25-Hydroxy 37.7 ng/mL Normal [facility] ([place]) Comment on above: Result Comment: Inte rpretive Values Based on Total 25(OH) Vitamin D: Deficient <20 ng/mL Insufficient 20 - <30 ng/mL Sufficient 30-100 ng/mL Performed By: #### C MP, LIPID, VIDH, GFR #### [address] [address] Re-Evaluation - PT (1)on Re-Evaluation - PT (1) [facility] Physical Therapy [facility] [address] [place] [address] / REEVALUATION / MEDICARE RECERTIFICATION PHYSICAL THERAPY MR#: [id number] Acct: [id number] Name: FILIBERTO VALDIVIA Rep #: [id number] : 1955 68 From: Sukhi Evans PT, ATC Referring Dr.: Dr. Ava Castle DO Status: REG RCR Insurance: MEDICARE PART A B [facility] Re-Evaluation Intro: Dr. Ava Castle, , It has been my pleasure to treat FILIBERTO CORMIER over the last 9 visits for Decompressive Lumbar laminectomy 05/09/23. Please see the progress note below for an update on the physical therapy plan of care! Subjective Subjective: I am getting better, but i am still very limited with house hold chores Objective Objective/Function: LBP ranges from 1-4/10 B LE MMT 4/5 throughout Pt is able to ambulate approximately 340 feet until needing to sit secondary to pain and fatigue Plan Plan Plan: Continue to progress with core and R LE strengthening at this time Balance/Gait/Functi onal tests Balance/Special Test Scores Oswestry Low Back Score: 16 Goals Goals Goal 1:: Decrease LBP x 50% to aid with sleep Goal Time Frame: 4-6 Weeks Goal Progress: Goal Met Goal 2:: Increase B LE strength x 1 grade to aid with stair negotiation Goal Time Frame: 4-6 Weeks Goal Progress: Progressing Goal 3:: Pt will be able to ambulate greater than 1000 feet with LRD to aid with community ambulation Goal Time Frame: 4-6 Weeks Goal Progress: Progressing Goal 4:: I with HEP Goal Time Frame: 4-6 Weeks Anticipated Interventions Anticipated Interventions Patient/Client Instruction: Educate patient on: Condition and Plan of Care For the Purpose of:: To improve self management Therapeutic Exercise to Include: Strength training, Endurance training, Postural training, Flexibilty training, Active ROM and Dynamic Lumbar Stabilization For the Purpose of:: To decrease pain, To increase ROM and To improve muscle performance and motor function Cryotherapy (ice pack, ice massage): Yes For the Purpose of:: To decrease pain Re-Evaluation Ending Re-evaluation ending: Please do not hesitate to contact me at [phone] by phone or if you have questions or concerns regarding this new plan of care! Sincerely, Sukhi Evans, PT, ATC 09/01/23 1036 CC: SCOOTER Woodson; Dr. Ava Castle, [facility] Signed For Medicare only, by signing this I certify the plan of care. _ Physicians Signature Date Normal [facility] Absolute lymphocyte countOrd ered By: connerameskimberli Mark on 06-22-2023 Lymphocytes Auto (Unsp spec) [#/Vol] 1.71 10*3/uL 0.83-4.51 [facility] Automated lymphocyte count a s percentage of total leukocytesOrdered By: connerameskimberli Mark on 06-22-2023 Lymphocytes/100 WBC Auto (Unsp spec) 33.5 % 19-41 [facility] Basophil percentageOrdered B y: Jessica Mark on 06-22-2023 Basophils/100 WBC (Bld) 0.6 % 0-1 [facility] Chloride [Moles/Vol] 108 mmol/L 98-107 [facility] Eosinophils/100 WBC (Bld) 3.3 % 0-5 [facility] Glucose [Mass/Vol] 88 mg/dL 74-106 [facility] Hemoglobin (Bld) [Mass/Vol] 10.7 g/dL 12.0-15.0 [facility] Monocytes/100 WBC (Bld) 12.3 % 0-10 [facility] Neutrophils (Bld) [#/Vol] 2.6 10*3/uL 2.0-7.7 [facility] Neutrophils/100 WBC (Bld) 49.9 % 47-70 [facility] Potassium [Moles/Vol] 4.2 mmol/L 3.5-5.1 [facility] Sodium [Moles/Vol] 138 mmol/L 136-145 [facility] WBC (Bld) [#/Vol] 5.1 10*3/uL 4.4-11.0 [facility] Determination of erythrocyte mean corpuscular volume (MCV)Ordered By: Jessica Mark on 06-22-2023 MCV (RBC) [Entitic vol] 90.4 fL 81-99 [facility] Erythrocyte distribution wid th ratioOrdered By: [facility] on 06-22-2023 Erythrocyte distribution width (RBC) [Ratio] 13.2 % 11.6-14.6 [facility] Erythrocyte distribution wid th standard deviationOrdered By: Marco Aameskimberli [place] on 06-22-2023 Erythrocyte distribution width (RBC) [Entitic vol] 43.4 fL 35.1-43.9 [facility] Hematocrit Auto (Bld) [Volum e fraction]Ordered By: Jessica Mark on 06-22-2023 Hematocrit (Bld) [Volume fraction] 33.9 % 37-47 [facility] Immature granulocytes/100 WB C Auto (Bld)Ordered By: [facility] [place] on 06-22-2023 Immature granulocytes/100 WBC (Bld) 0.400 % 0.0-0.9 [facility] Comment on above: IG% - Immature Granu locytes (promyelocytes, myelocytes and metamyelocytes) > 1% indicates that a LEFT SHIFT is Present. Laboratory - Chemistry and C hemistry - challengeOrdered By: Jessica Mark on 06-22-2023 CO2 [Moles/Vol] 26.0 mmol/L 21.0-32.0 [facility] Urea nitrogen/Creatinine [Mass ratio] 22.2 mg/mg 10-20 [facility] Laboratory - Hematology and Cell countsOrdered By: Jessica Mark on 06-22-2023 MCH (RBC) [Entitic mass] 28.5 pg 27.0-32.0 [facility] MCHC (RBC) [Mass/Vol] 31.6 g/dL 32-36 [facility] Nucleated RBC/100 WBC (Bld) [Ratio] 0 % 0-5 [facility] Platelets (Bld) [#/Vol] 327 10*3/uL 150-450 [facility] No Panel InformationOrdered By: Jessica Mark on 06-22-2023 Estimated GFR (MDRD) Amer 96 mL/min >60 [facility] Comment on above: GFR Calc Estimated GFR (MDRD) Non-Af Amer 79 mL/min >60 [facility] Comment on above: Non- GFR Calc Platelet mean volume Navi-Ec ker (Bld) [Entitic vol]Ordered By: Jessica Mark on 06-22-2023 Platelet mean volume (Bld) [Entitic vol] 9.9 fL 6.2-12.0 [facility] RBC Auto (Bld) [#/Vol]Ordere d By: Jessica Mark on 06-22-2023 RBC (Bld) [#/Vol] 3.75 10*6/uL 4.2-5.4 [facility] Serum or plasma calcium marlon urement (mass/volume)Ordered By: Jessica Mark on 06-22-2023 Calcium [Mass/Vol] 9.1 mg/dL 8.5-10.1 [facility] Serum or plasma creatinine m easurement (mass/volume)Ordered By: Jessica Mark on 06-22-2023 Creatinine [Mass/Vol] 0.77 mg/dL 0.55-1.02 [facility] Comment on above: The validity of the calculated GFR & GFRAA in patients over 70 years has not been determined. Clinical correlation is essential. Serum or plasma urea nitroge n measurement (mass/volume)Ordered By: Jessica Mark on 06-22-2023 Urea nitrogen [Mass/Vol] 17 mg/dL 7-18 [facility] Thin prep Papanicolaou smear with manual screeningOrdered By: Jessica Mark on 06-22-2023 Thin prep Papanicolaou smear with manual screening 4 5-15 [facility] Absolute lymphocyte countOrd ered By: Jessica Mark on 06-15-2023 Lymphocytes Auto (Unsp spec) [#/Vol] 1.48 10*3/uL 0.83-4.51 [facility] Basophil percentageOrdered B y: Jessica Mark on 06-15-2023 Basophils/100 WBC (Bld) 0.3 % 0-1 [facility] Bilirubin [Mass/Vol] 0.40 mg/dL 0.20-1.00 [facility] Comment on above: For patients on eltr ombopag therapy, use of Dimension [place] TBIL is not recommended. Chloride [Moles/Vol] 110 mmol/L 98-107 [facility] Cholesterol [Mass/Vol] 133 mg/dL <200 [facility] Comment on above: <200 mg/dL Desirable 200-240 mg/dL Borderline >240 mg/dL High Risk Eosinophils/100 WBC (Bld) 2.6 % 0-5 [facility] Glucose [Mass/Vol] 85 mg/dL 74-106 [facility] Neutrophils (Bld) [#/Vol] 3.6 10*3/uL 2.0-7.7 [facility] Neutrophils/100 WBC (Bld) 60.5 % 47-70 [facility] Potassium [Moles/Vol] 4.1 mmol/L 3.5-5.1 [facility] Protein [Mass/Vol] 6.5 g/dL 6.4-8.2 [facility] Sodium [Moles/Vol] 140 mmol/L 136-145 [facility] Triglyceride [Mass/Vol] 114 mg/dL <199 [facility] Comment on above: The drugs N-Acetylcy steine and Metamizole may falsely depress this assay.Serum Triglycerides Reference Interval Normal <150 mg/dL Borderline high 150 - 199 mg/dL High 200 - 499 mg/dL Very High > or = 500 mg/dL WBC (Bld) [#/Vol] 5.9 10*3/uL 4.4-11.0 [facility] Blood erythrocytes count (nu mber/volume)Ordered By: Jessica Mark on 06-15-2023 RBC (Bld) [#/Vol] 3.62 10*6/uL 4.2-5.4 [facility] Blood hemoglobin measurement (mass/volume)Ordered By: Jessica Mark on 06-15-2023 Hemoglobin (Bld) [Mass/Vol] 10.4 g/dL 12.0-15.0 [facility] Blood lymphocytes/100 leukoc ytesOrdered By: naeem Mark on 06-15-2023 Lymphocytes/100 WBC (Bld) 25.2 % 19-41 [facility] Blood monocytes/100 leukocyt esOrdered By: [facility] on 06-15-2023 Monocytes/100 WBC (Bld) 11.1 % 0-10 [facility] Blood platelet mean volumeOr dered By: naeem Mark on 06-15-2023 Platelet mean volume (Bld) [Entitic vol] 9.5 fL 6.2-12.0 [facility] Determination of erythrocyte mean corpuscular volume (MCV)Ordered By: naeem Mark on 06-15-2023 MCV (RBC) [Entitic vol] 88.1 fL 81-99 [facility] Hematocrit Auto (Bld) [Volum e fraction]Ordered By: Jessica Mark on 06-15-2023 Hematocrit (Bld) [Volume fraction] 31.9 % 37-47 [facility] Laboratory - Chemistry and C hemistry - challengeOrdered By: Jessica Mark on 06-15-2023 ALP [Catalytic activity/Vol] 97 U/L 45-117 [facility] ALT [Catalytic activity/Vol] 15 U/L 13-56 [facility] CO2 [Moles/Vol] 23.0 mmol/L 21.0-32.0 [facility] Globulin (S) [Mass/Vol] 3.9 g/dL 2.2-4.2 [facility] Urea nitrogen/Creatinine [Mass ratio] 21.6 mg/mg 10-20 [facility] Laboratory - Hematology and Cell countsOrdered By: naeem Mark on 06-15-2023 Erythrocyte distribution width (RBC) [Entitic vol] 42.2 fL 35.1-43.9 [facility] Erythrocyte distribution width (RBC) [Ratio] 13.2 % 11.6-14.6 [facility] Immature granulocytes/100 WBC (Bld) 0.300 % 0.0-0.9 [facility] Comment on above: IG% - Immature Granu locytes (promyelocytes, myelocytes and metamyelocytes) > 1% indicates that a LEFT SHIFT is Present. MCH (RBC) [Entitic mass] 28.7 pg 27.0-32.0 [facility] Nucleated RBC/100 WBC (Bld) [Ratio] 0 % 0-5 [facility] MCHC Auto (RBC) [Mass/Vol]Or dered By: Jessica Mrak on 06-15-2023 MCHC (RBC) [Mass/Vol] 32.6 g/dL 32-36 [facility] No Panel InformationOrdered By: Jessica Mark on 06-15-2023 Estimated GFR (MDRD) Amer 99 mL/min >60 [facility] Comment on above: GFR Calc Estimated GFR (MDRD) Non-Af Amer 82 mL/min >60 [facility] Comment on above: Non- GFR Calc Vitamin D 25-Hydroxy 50.6 ng/mL [facility] Comment on above: Vitamin D 25(OH) Sta tus Range Deficiency <20 ng/mL (50nmol/L) Insufficiency 20 - 30 ng/mL (50 - 75 nmol/L) Sufficiency 30 - 100 ng/mL (75 - 250 nmol/L) Toxicity >100 ng/mL (>250 nmol/L) Platelets bldOrdered By: Mj Mark on 06-15-2023 Platelets (Bld) [#/Vol] 372 10*3/uL 150-450 [facility] Serum or plasma albumin marlon urement (mass/volume)Ordered By: Jessica Mark on 06-15-2023 Albumin [Mass/Vol] 2.6 g/dL 3.2-5.0 [facility] Serum or plasma albumin/glob ulin mass ratioOrdered By: Jessica Mark on 06-15-2023 Albumin/Globulin [Mass ratio] 0.7 {ratio} 0.9-2.4 [facility] Serum or plasma calcium marlon urement (mass/volume)Ordered By: Jessica Mark on 06-15-2023 Calcium [Mass/Vol] 8.9 mg/dL 8.5-10.1 [facility] Serum or plasma cholesterol in HDL measurement (mass/volume)Ordered By: Jessica Mark on 06-15-2023 Cholesterol in HDL [Mass/Vol] 39 mg/dL >40 [facility] Comment on above: The drugs N-Acetylcy steine and Metamizole may falsely depress this assay. Reference Range HDL <40 mg/dL Low HDL Cholesterol HDL >or= 60 mg/dL High HDL Cholesterol Serum or plasma cholesterol in VLDL measurement (mass/volume)Ordered By: Jessica Mark on 06-15-2023 Cholesterol in VLDL [Mass/Vol] 23 mg/dL 5-40 [facility] Serum or plasma creatinine m easurement (mass/volume)Ordered By: Jessica Mark on 06-15-2023 Creatinine [Mass/Vol] 0.74 mg/dL 0.55-1.02 [facility] Comment on above: The validity of the calculated GFR & GFRAA in patients over 70 years has not been determined. Clinical correlation is essential. Serum or plasma low density lipoprotein (LDL) cholesterol measurement (mass/volume)Ordered By: Jessica Mark on 06-15-2023 Cholesterol in LDL [Mass/Vol] 71 mg/dL 0-130 [facility] Serum or plasma urea nitroge n measurement (mass/volume)Ordered By: Jessica Mark on 06-15-2023 Urea nitrogen [Mass/Vol] 16 mg/dL 7-18 [facility] Thin prep Papanicolaou smear with manual screeningOrdered By: Jessica Mark on 06-15-2023 Thin prep Papanicolaou smear with manual screening 13 U/L 15-37 [facility] Thin prep Papanicolaou smear with manual screening 7 5-15 [facility] Absolute lymphocyte countOrd ered By: Adán Khalil on 06-14-2023 Lymphocytes Auto (Unsp spec) [#/Vol] 1.19 10*3/uL 0.83-4.51 [facility] Basophil percentageOrdered B y: Adán Khalil on 06-14-2023 Basophils/100 WBC (Bld) 0.4 % 0-1 [facility] Chloride [Moles/Vol] 111 mmol/L 98-107 [facility] Eosinophils/100 WBC (Bld) 4.1 % 0-5 [facility] Glucose [Mass/Vol] 93 mg/dL 74-106 [facility] Neutrophils (Bld) [#/Vol] 3.4 10*3/uL 2.0-7.7 [facility] Neutrophils/100 WBC (Bld) 62.4 % 47-70 [facility] Potassium [Moles/Vol] 4.0 mmol/L 3.5-5.1 [facility] Sodium [Moles/Vol] 141 mmol/L 136-145 [facility] WBC (Bld) [#/Vol] 5.4 10*3/uL 4.4-11.0 [facility] Blood erythrocytes count (nu mber/volume)Ordered By: Adán Khalil on 06-14-2023 RBC (Bld) [#/Vol] 3.73 10*6/uL 4.2-5.4 [facility] Blood hemoglobin measurement (mass/volume)Ordered By: Adán Khalil on 06-14-2023 Hemoglobin (Bld) [Mass/Vol] 10.7 g/dL 12.0-15.0 [facility] Blood lymphocytes/100 leukoc ytesOrdered By: Adán Khalil on 06-14-2023 Lymphocytes/100 WBC (Bld) 22.0 % 19-41 [facility] Blood monocytes/100 leukocyt esOrdered By: Adán Khalil on 06-14-2023 Monocytes/100 WBC (Bld) 10.7 % 0-10 [facility] Blood platelet mean volumeOr dered By: Adán Khalil on 06-14-2023 Platelet mean volume (Bld) [Entitic vol] 9.3 fL 6.2-12.0 [facility] COVID-19 virus antigen assay Ordered By: Adán Khalil on 06-14-2023 SARS-CoV-2 (COVID-19) Ag IA.rapid Ql (Resp) [facility] Determination of erythrocyte mean corpuscular volume (MCV)Ordered By: Adán Khalil on 06-14-2023 MCV (RBC) [Entitic vol] 88.2 fL 81-99 [facility] Hematocrit Auto (Bld) [Volum e fraction]Ordered By: Adán Khalil on 06-14-2023 Hematocrit (Bld) [Volume fraction] 32.9 % 37-47 [facility] Laboratory - Chemistry and C hemistry - challengeOrdered By: Adán Khalil on 06-14-2023 CO2 [Moles/Vol] 25.0 mmol/L 21.0-32.0 [facility] Urea nitrogen/Creatinine [Mass ratio] 23.8 mg/mg 10-20 [facility] Laboratory - Hematology and Cell countsOrdered By: Adán Khalil on 06-14-2023 Erythrocyte distribution width (RBC) [Entitic vol] 42.3 fL 35.1-43.9 [facility] Erythrocyte distribution width (RBC) [Ratio] 13.1 % 11.6-14.6 [facility] Immature granulocytes/100 WBC (Bld) 0.400 % 0.0-0.9 [facility] Comment on above: IG% - Immature Granu locytes (promyelocytes, myelocytes and metamyelocytes) > 1% indicates that a LEFT SHIFT is Present. MCH (RBC) [Entitic mass] 28.7 pg 27.0-32.0 [facility] Nucleated RBC/100 WBC (Bld) [Ratio] 0 % 0-5 [facility] MCHC Auto (RBC) [Mass/Vol]Or dered By: Adán Khalil on 06-14-2023 MCHC (RBC) [Mass/Vol] 32.5 g/dL 32-36 [facility] No Panel InformationOrdered By: Adán Khalil on 06-14-2023 Estimated Creatinine Clearance Calc 74.00 ml/min [facility] Estimated GFR (MDRD) Amer 112 mL/min >60 [facility] Comment on above: GFR Calc Estimated GFR (MDRD) Non-Af Amer 92 mL/min >60 [facility] Comment on above: Non- GFR Calc Platelets bldOrdered By: Sneha Khalil on 06-14-2023 Platelets (Bld) [#/Vol] 357 10*3/uL 150-450 [facility] Serum or plasma calcium marlon urement (mass/volume)Ordered By: Adán Khalil on 06-14-2023 Calcium [Mass/Vol] 9.0 mg/dL 8.5-10.1 [facility] Serum or plasma creatinine m easurement (mass/volume)Ordered By: Adán Khalil on 06-14-2023 Creatinine [Mass/Vol] 0.67 mg/dL 0.55-1.02 [facility] Comment on above: The validity of the calculated GFR & GFRAA in patients over 70 years has not been determined. Clinical correlation is essential. Serum or plasma urea nitroge n measurement (mass/volume)Ordered By: Adán Khalil on 06-14-2023 Urea nitrogen [Mass/Vol] 16 mg/dL 7-18 [facility] Thin prep Papanicolaou smear with manual screeningOrdered By: Adán Khalil on 06-14-2023 Thin prep Papanicolaou smear with manual screening 5 5-15 [facility] Basophil percentageOrdered B y: Jeri Burns on 06-13-2023 Bilirubin [Mass/Vol] 0.40 mg/dL 0.20-1.00 [facility] Comment on above: For patients on eltr ombopag therapy, use of Dimension [place] TBIL is not recommended. Protein [Mass/Vol] 6.2 g/dL 6.4-8.2 [facility] Laboratory - Chemistry and C hemistry - challengeOrdered By: Jeri Burns on 06-13-2023 ALP [Catalytic activity/Vol] 96 U/L 45-117 [facility] ALT [Catalytic activity/Vol] 15 U/L 13-56 [facility] Globulin (S) [Mass/Vol] 3.5 g/dL 2.2-4.2 [facility] Serum or plasma albumin marlon urement (mass/volume)Ordered By: Jeri Burns on 06-13-2023 Albumin [Mass/Vol] 2.7 g/dL 3.2-5.0 [facility] Serum or plasma albumin/glob ulin mass ratioOrdered By: Jeri Burns on 06-13-2023 Albumin/Globulin [Mass ratio] 0.8 {ratio} 0.9-2.4 [facility] Stool enteric pathogen panel by probe and target amplification methodOrdered By: Jabari Baig on 06-13-2023 Gastrointestinal pathogens panel VIKASH+probe (Stl) [facility] Thin prep Papanicolaou smear with manual screeningOrdered By: Jeri Burns on 06-13-2023 Thin prep Papanicolaou smear with manual screening 14 U/L 15-37 [facility] Absolute lymphocyte countOrd ered By: Jabari Baig on 06-12-2023 Lymphocytes Auto (Unsp spec) [#/Vol] 0.83 10*3/uL 0.83-4.51 [facility] Basophil percentageOrdered B y: Jabari Baig on 06-12-2023 Basophil percentage 10-25 SEEN /hpf 0-5 [facility] Basophils/100 WBC (Bld) 0.3 % 0-1 [facility] Chloride [Moles/Vol] 108 mmol/L 98-107 [facility] Eosinophils/100 WBC (Bld) 0.4 % 0-5 [facility] Glucose [Mass/Vol] 117 mg/dL 74-106 [facility] Comment on above: Fasting Glucose resu lt from 100 to 125 mg/dL suggests IMPAIRED HOMEOSTASIS per A.D.A. criteria. Neutrophils (Bld) [#/Vol] 5.3 10*3/uL 2.0-7.7 [facility] Neutrophils/100 WBC (Bld) 78.9 % 47-70 [facility] Potassium [Moles/Vol] 3.7 mmol/L 3.5-5.1 [facility] Sodium [Moles/Vol] 138 mmol/L 136-145 [facility] WBC (Bld) [#/Vol] 6.8 10*3/uL 4.4-11.0 [facility] Basophil percentageOrdered B y: Jeri White on 06-12-2023 Basophil percentage 3.8 mg/dL 2.5-4.9 [facility] Bilirubin Test strip Ql (U)O rdered By: Jabari Baig on 06-12-2023 Bilirubin Ql (U) Negative Negative [facility] Blood erythrocytes count (nu mber/volume)Ordered By: Jabari Baig on 06-12-2023 RBC (Bld) [#/Vol] 4.19 10*6/uL 4.2-5.4 [facility] Blood hemoglobin measurement (mass/volume)Ordered By: Jabari Baig on 06-12-2023 Hemoglobin (Bld) [Mass/Vol] 12.0 g/dL 12.0-15.0 [facility] Blood lymphocytes/100 leukoc ytesOrdered By: Jabari Baig on 06-12-2023 Lymphocytes/100 WBC (Bld) 12.3 % 19-41 [facility] Blood monocytes/100 leukocyt esOrdered By: Jabari Baig on 06-12-2023 Monocytes/100 WBC (Bld) 7.7 % 0-10 [facility] Blood platelet mean volumeOr dered By: Jabari Baig on 06-12-2023 Platelet mean volume (Bld) [Entitic vol] 9.0 fL 6.2-12.0 [facility] Culture, urineOrdered By: Yuniel Baig on 06-12-2023 Bacteria identified Cx Nom (U) Mixed Gram Pos & Gram Neg Org [facility] Determination of erythrocyte mean corpuscular volume (MCV)Ordered By: Jabari Baig on 06-12-2023 MCV (RBC) [Entitic vol] 89.0 fL 81-99 [facility] Hematocrit Auto (Bld) [Volum e fraction]Ordered By: Jabari Baig on 06-12-2023 Hematocrit (Bld) [Volume fraction] 37.3 % 37-47 [facility] Hyaline casts LM.LPF (Urine sed) [#/Area]Ordered By: Jabari Baig on 06-12-2023 Hyaline casts (Urine sed) [#/Area] 0 /[LPF] 0-5 [facility] Ketones Test strip Ql (U)Ord ered By: Jabari Baig on 06-12-2023 Ketones Ql (U) 5 mg/dl Negative [facility] Laboratory - Chemistry and C hemistry - challengeOrdered By: Jabari Baig on 06-12-2023 CO2 [Moles/Vol] 25.0 mmol/L 21.0-32.0 [facility] Urea nitrogen/Creatinine [Mass ratio] 23.5 mg/mg 10-20 [facility] Laboratory - Chemistry and C hemistry - challengeOrdered By: Jeri Burns on 06-12-2023 Magnesium [Mass/Vol] 2.3 mg/dL 1.6-2.6 [facility] Laboratory - Hematology and Cell countsOrdered By: Jabari Baig on 06-12-2023 Erythrocyte distribution width (RBC) [Entitic vol] 41.6 fL 35.1-43.9 [facility] Erythrocyte distribution width (RBC) [Ratio] 12.9 % 11.6-14.6 [facility] Immature granulocytes/100 WBC (Bld) 0.400 % 0.0-0.9 [facility] Comment on above: IG% - Immature Granu locytes (promyelocytes, myelocytes and metamyelocytes) > 1% indicates that a LEFT SHIFT is Present. MCH (RBC) [Entitic mass] 28.6 pg 27.0-32.0 [facility] Nucleated RBC/100 WBC (Bld) [Ratio] 0 % 0-5 [facility] MCHC Auto (RBC) [Mass/Vol]Or dered By: Jabari Baig on 06-12-2023 MCHC (RBC) [Mass/Vol] 32.2 g/dL 32-36 [facility] Mucus LM Ql (Urine sed)Order ed By: Jabari Baig on 06-12-2023 Mucus Ql (Urine sed) 0 SEEN /hpf [facility] Nitrite Test strip Ql (U)Ord ered By: Jabari Baig on 06-12-2023 Nitrite Ql (U) Negative Negative [facility] No Panel InformationOrdered By: Jabari Baig on 06-12-2023 Estimated GFR (MDRD) Amer 69 mL/min >60 [facility] Comment on above: GFR Calc Estimated GFR (MDRD) Non-Af Amer 57 mL/min >60 [facility] Comment on above: Non- GFR Calc Platelets bldOrdered By: Amanda Baig on 06-12-2023 Platelets (Bld) [#/Vol] 404 10*3/uL 150-450 [facility] Protein Test strip Ql (U)Ord ered By: Jabari Baig on 06-12-2023 Protein Ql (U) 100 mg/dl Negative [facility] Serum or plasma calcium marlon urement (mass/volume)Ordered By: Jabari Baig on 06-12-2023 Calcium [Mass/Vol] 9.6 mg/dL 8.5-10.1 [facility] Serum or plasma creatinine m easurement (mass/volume)Ordered By: Jabari Baig on 06-12-2023 Creatinine [Mass/Vol] 1.02 mg/dL 0.55-1.02 [facility] Comment on above: The validity of the calculated GFR & GFRAA in patients over 70 years has not been determined. Clinical correlation is essential. Serum or plasma urea nitroge n measurement (mass/volume)Ordered By: Jabari Baig on 06-12-2023 Urea nitrogen [Mass/Vol] 24 mg/dL 7-18 [facility] Serum procalcitonin measurem entOrdered By: Jeri Burns on 06-12-2023 Procalcitonin [Mass/Vol] 0.04 ng/mL 0.00-0.09 [facility] Comment on above: A procalcitonin (PCT ) level above 2.0 ng/mL on the first day of ICU admission is associated with a high risk for progression to severe sepsis and/or septic shock. A PCT level below 0.5 ng/mL on the first day of ICU admission is associated with a low risk for progression to severe and/or septic shock. Note: Concentrations <0.5 ng/mL do not exclude an infection on account of localized infections (without systemic signs) which can be associated with such low concentrations, or a systemic infection in its initial stages (<6 hours). Furthermore, increased procalcitonin can occur without infection. PCT concentrations between 0.5 and 2.0 ng/mL should be interpreted taking into account the patient's history. It is recommended to retest PCT within 6-24 hours if any concentrations <2 ng/mL are obtained. Squamous epithelial cells de tection in urine sediment by light microscopyOrdered By: Jabari Baig on 06-12-2023 Epithelial cells.squamous LM Ql (Urine sed) 10-25 SEEN /hpf 5-10 [facility] Thin prep Papanicolaou smear with manual screeningOrdered By: Jabair Baig on 06-12-2023 Thin prep Papanicolaou smear with manual screening 5 5-15 [facility] Urine blood detectionOrdered By: Jabari Baig on 06-12-2023 RBC Ql (U) 10 /ul Negative [facility] RBC Ql (U) 0-5 SEEN /hpf 0-5 [facility] Urine clarityOrdered By: Amanda Baig on 06-12-2023 Clarity (U) Sl. Cloudy Clear [facility] Urine color determinationOrd ered By: Jabari Baig on 06-12-2023 Color (U) Yellow Yellow [facility] Urine glucose detectionOrder ed By: Jabari Baig on 06-12-2023 Glucose Ql (U) Normal mg/dl Normal [facility] Urine leukocyte esterase det ection by dipstickOrdered By: Jabari Baig on 06-12-2023 Leukocyte esterase Test strip Ql (U) 100 /ul Negative [facility] Urine pHOrdered By: Jabari melissa on 06-12-2023 pH (U) 5.0 [pH] 5.0 - 8.0 [facility] Urine sediment bacteria coun t by microscopy (number/high power field)Ordered By: Jabari Baig on 06-12-2023 Bacteria LM.HPF (Urine sed) [#/Area] 2 /[HPF] None Seen [facility] Urine specific gravity measu rementOrdered By: Jabari Baig on 06-12-2023 Specific gravity (U) [Rel density] 1.020 1.002-1.030 [facility] Urobilinogen Auto test strip Ql (U)Ordered By: Jabari Baig on 06-12-2023 Urobilinogen Ql (U) 1 mg/dl Normal [facility] COVID-19 virus antigen assay Ordered By: Ava Castle on 06-06-2023 SARS-CoV-2 (COVID-19) Ag IA.rapid Ql (Resp) [facility] Absolute lymphocyte countOrd ered By: Ava Castle on 06-04-2023 Lymphocytes Auto (Unsp spec) [#/Vol] 1.52 10*3/uL 0.83-4.51 [facility] Basophil percentageOrdered B y: Ava Castle on 06-04-2023 Basophils/100 WBC (Bld) 0.4 % 0-1 [facility] Chloride [Moles/Vol] 107 mmol/L 98-107 [facility] Eosinophils/100 WBC (Bld) 6.8 % 0-5 [facility] Glucose [Mass/Vol] 91 mg/dL 74-106 [facility] Neutrophils (Bld) [#/Vol] 2.5 10*3/uL 2.0-7.7 [facility] Neutrophils/100 WBC (Bld) 49.4 % 47-70 [facility] Potassium [Moles/Vol] 4.7 mmol/L 3.5-5.1 [facility] Sodium [Moles/Vol] 139 mmol/L 136-145 [facility] WBC (Bld) [#/Vol] 5.0 10*3/uL 4.4-11.0 [facility] Blood erythrocytes count (nu mber/volume)Ordered By: Ava Castle on 06-04-2023 RBC (Bld) [#/Vol] 3.33 10*6/uL 4.2-5.4 [facility] Blood hemoglobin measurement (mass/volume)Ordered By: Ava Castle on 06-04-2023 Hemoglobin (Bld) [Mass/Vol] 9.7 g/dL 12.0-15.0 [facility] Blood lymphocytes/100 leukoc ytesOrdered By: Ava Castle on 06-04-2023 Lymphocytes/100 WBC (Bld) 30.3 % 19-41 [facility] Blood monocytes/100 leukocyt esOrdered By: Ava Castle on 06-04-2023 Monocytes/100 WBC (Bld) 12.5 % 0-10 [facility] Blood platelet mean volumeOr dered By: Ava Castle on 06-04-2023 Platelet mean volume (Bld) [Entitic vol] 9.2 fL 6.2-12.0 [facility] Determination of erythrocyte mean corpuscular volume (MCV)Ordered By: Ava Castle on 06-04-2023 MCV (RBC) [Entitic vol] 92.8 fL 81-99 [facility] Hematocrit Auto (Bld) [Volum e fraction]Ordered By: Ava Castle on 06-04-2023 Hematocrit (Bld) [Volume fraction] 30.9 % 37-47 [facility] Laboratory - Chemistry and C hemistry - challengeOrdered By: Ava Castle on 06-04-2023 CO2 [Moles/Vol] 29.0 mmol/L 21.0-32.0 [facility] Urea nitrogen/Creatinine [Mass ratio] 25.1 mg/mg 10-20 [facility] Laboratory - Hematology and Cell countsOrdered By: Ava Castle on 06-04-2023 Erythrocyte distribution width (RBC) [Entitic vol] 42.5 fL 35.1-43.9 [facility] Erythrocyte distribution width (RBC) [Ratio] 12.5 % 11.6-14.6 [facility] Immature granulocytes/100 WBC (Bld) 0.600 % 0.0-0.9 [facility] Comment on above: IG% - Immature Granu locytes (promyelocytes, myelocytes and metamyelocytes) > 1% indicates that a LEFT SHIFT is Present. MCH (RBC) [Entitic mass] 29.1 pg 27.0-32.0 [facility] Nucleated RBC/100 WBC (Bld) [Ratio] 0 % 0-5 [facility] MCHC Auto (RBC) [Mass/Vol]Or dered By: Ava Castle on 06-04-2023 MCHC (RBC) [Mass/Vol] 31.4 g/dL 32-36 [facility] No Panel InformationOrdered By: Ava Castle on 06-04-2023 Estimated Creatinine Clearance Calc 54.71 ml/min [facility] Estimated GFR (MDRD) Amer 97 mL/min >60 [facility] Comment on above: GFR Calc Estimated GFR (MDRD) Non-Af Amer 80 mL/min >60 [facility] Comment on above: Non- GFR Calc Platelets bldOrdered By: Yudy Castle on 06-04-2023 Platelets (Bld) [#/Vol] 295 10*3/uL 150-450 [facility] Serum or plasma calcium marlon urement (mass/volume)Ordered By: Ava Castle on 06-04-2023 Calcium [Mass/Vol] 8.4 mg/dL 8.5-10.1 [facility] Serum or plasma creatinine m easurement (mass/volume)Ordered By: Ava Castle on 06-04-2023 Creatinine [Mass/Vol] 0.76 mg/dL 0.55-1.02 [facility] Comment on above: The validity of the calculated GFR & GFRAA in patients over 70 years has not been determined. Clinical correlation is essential. Serum or plasma urea nitroge n measurement (mass/volume)Ordered By: Ava Castle on 06-04-2023 Urea nitrogen [Mass/Vol] 19 mg/dL 7-18 [facility] Thin prep Papanicolaou smear with manual screeningOrdered By: Ava Montanodelbert on 06-04-2023 Thin prep Papanicolaou smear with manual screening 3 5-15 [facility] COVID-19 virus antigen assay Ordered By: Ava Montanodelbert on 05-25-2023 SARS-CoV-2 (COVID-19) Ag IA.rapid Ql (Resp) [facility] Blood hemoglobin measurement (mass/volume)Ordered By: Evonne Bishop on 05-22-2023 Hemoglobin (Bld) [Mass/Vol] 11.1 g/dL 12.0-15.0 [facility] Hematocrit Auto (Bld) [Volum e fraction]Ordered By: Evonne Bishop on 05-22-2023 Hematocrit (Bld) [Volume fraction] 34.9 % 37-47 [facility] Absolute lymphocyte countOrd ered By: Mavis Vásquez on 05-16-2023 Lymphocytes Auto (Unsp spec) [#/Vol] 1.49 10*3/uL 0.83-4.51 [facility] Basophil percentageOrdered B y: Mavis Vásquez on 05-16-2023 Basophil percentage 3.9 mg/dL 2.5-4.9 [facility] Basophils/100 WBC (Bld) 0.5 % 0-1 [facility] Bilirubin [Mass/Vol] 0.30 mg/dL 0.20-1.00 [facility] Comment on above: For patients on eltr ombopag therapy, use of Dimension [place] TBIL is not recommended. Chloride [Moles/Vol] 106 mmol/L 98-107 [facility] Eosinophils/100 WBC (Bld) 7.0 % 0-5 [facility] Glucose [Mass/Vol] 96 mg/dL 74-106 [facility] Neutrophils (Bld) [#/Vol] 4.4 10*3/uL 2.0-7.7 [facility] Neutrophils/100 WBC (Bld) 59.6 % 47-70 [facility] Potassium [Moles/Vol] 4.1 mmol/L 3.5-5.1 [facility] Protein [Mass/Vol] 5.7 g/dL 6.4-8.2 [facility] Sodium [Moles/Vol] 139 mmol/L 136-145 [facility] WBC (Bld) [#/Vol] 7.3 10*3/uL 4.4-11.0 [facility] Blood erythrocytes count (nu mber/volume)Ordered By: Mavis Vásquez on 05-16-2023 RBC (Bld) [#/Vol] 3.13 10*6/uL 4.2-5.4 [facility] Blood lymphocytes/100 leukoc ytesOrdered By: Mavis Vásquez on 05-16-2023 Lymphocytes/100 WBC (Bld) 20.4 % 19-41 [facility] Blood monocytes/100 leukocyt esOrdered By: Mavis Vásquez on 05-16-2023 Monocytes/100 WBC (Bld) 12.1 % 0-10 [facility] Blood platelet mean volumeOr dered By: Mavis Vásquez on 05-16-2023 Platelet mean volume (Bld) [Entitic vol] 9.7 fL 6.2-12.0 [facility] Determination of erythrocyte mean corpuscular volume (MCV)Ordered By: Mavis Vásquez on 05-16-2023 MCV (RBC) [Entitic vol] 93.3 fL 81-99 [facility] Laboratory - Chemistry and C hemistry - challengeOrdered By: Mavis Vásquez on 05-16-2023 ALP [Catalytic activity/Vol] 60 U/L 45-117 [facility] ALT [Catalytic activity/Vol] 48 U/L 13-56 [facility] CO2 [Moles/Vol] 29.0 mmol/L 21.0-32.0 [facility] Globulin (S) [Mass/Vol] 3.5 g/dL 2.2-4.2 [facility] Magnesium [Mass/Vol] 2.3 mg/dL 1.6-2.6 [facility] Urea nitrogen/Creatinine [Mass ratio] 28.4 mg/mg 10-20 [facility] Laboratory - Hematology and Cell countsOrdered By: Mavis Vásquez on 05-16-2023 Erythrocyte distribution width (RBC) [Entitic vol] 42.7 fL 35.1-43.9 [facility] Erythrocyte distribution width (RBC) [Ratio] 12.6 % 11.6-14.6 [facility] Immature granulocytes/100 WBC (Bld) 0.400 % 0.0-0.9 [facility] Comment on above: IG% - Immature Granu locytes (promyelocytes, myelocytes and metamyelocytes) > 1% indicates that a LEFT SHIFT is Present. MCH (RBC) [Entitic mass] 30.0 pg 27.0-32.0 [facility] Nucleated RBC/100 WBC (Bld) [Ratio] 0 % 0-5 [facility] MCHC Auto (RBC) [Mass/Vol]Or dered By: Mavis Vásquez on 05-16-2023 MCHC (RBC) [Mass/Vol] 32.2 g/dL 32-36 [facility] No Panel InformationOrdered By: Mavis Vásquez on 05-16-2023 Estimated Creatinine Clearance Calc 54.71 ml/min [facility] Estimated GFR (MDRD) Amer 112 mL/min >60 [facility] Comment on above: GFR Calc Estimated GFR (MDRD) Non-Af Amer 93 mL/min >60 [facility] Comment on above: Non- GFR Calc Platelets bldOrdered By: Nohemy Vásquez on 05-16-2023 Platelets (Bld) [#/Vol] 296 10*3/uL 150-450 [facility] Serum or plasma albumin marlon urement (mass/volume)Ordered By: Mavis Vásquez on 05-16-2023 Albumin [Mass/Vol] 2.2 g/dL 3.2-5.0 [facility] Serum or plasma albumin/glob ulin mass ratioOrdered By: Mavis Vásquez on 05-16-2023 Albumin/Globulin [Mass ratio] 0.6 {ratio} 0.9-2.4 [facility] Serum or plasma calcium marlon urement (mass/volume)Ordered By: Mavis Vásquez on 05-16-2023 Calcium [Mass/Vol] 8.3 mg/dL 8.5-10.1 [facility] Serum or plasma creatinine m easurement (mass/volume)Ordered By: Mavis Vásquez on 05-16-2023 Creatinine [Mass/Vol] 0.67 mg/dL 0.55-1.02 [facility] Comment on above: The validity of the calculated GFR & GFRAA in patients over 70 years has not been determined. Clinical correlation is essential. Serum or plasma urea nitroge n measurement (mass/volume)Ordered By: Mavis Vásquez on 05-16-2023 Urea nitrogen [Mass/Vol] 19 mg/dL 12-20 [facility] Thin prep Papanicolaou smear with manual screeningOrdered By: Mavis Vásquez on 05-16-2023 Thin prep Papanicolaou smear with manual screening 53 U/L [facility] Thin prep Papanicolaou smear with manual screening 4 10-17 [facility] .GFRon 03-21-2023 GFR 102 ml/min/1.73sqm Normal [facility] ([place]) Comment on above: Result Comment: GFR Population mean for , Non- Americans Ages 20-29 = 116 mL/min/1.73 sq.m. Ages 30-39 = 107 mL/min/1.73 sq.m. Ages 40-49 = 99 mL/min/1.73 sq.m. Ages 50-59 = 93 mL/min/1.73 sq.m. Ages 60-69 = 85 mL/min/1.73 sq.m. Ages 70+ = 75 mL/min/1.73 sq.m. Chronic Kidney Disease: Less than 60 mL/min/1.73 square meters End Stage Renal Disease: Less than 15 mL/min/1.73 square meters Performed By: #### C MP, GFR #### [place] [id number] GFR Non- 84 ml/min/1.73sqm Normal [facility] ([place]) Comment on above: Result Comment: GFR Population mean for , Non- Americans Ages 20-29 = 116 mL/min/1.73 sq.m. Ages 30-39 = 107 mL/min/1.73 sq.m. Ages 40-49 = 99 mL/min/1.73 sq.m. Ages 50-59 = 93 mL/min/1.73 sq.m. Ages 60-69 = 85 mL/min/1.73 sq.m. Ages 70+ = 75 mL/min/1.73 sq.m. Chronic Kidney Disease: Less than 60 mL/min/1.73 square meters End Stage Renal Disease: Less than 15 mL/min/1.73 square meters Performed By: #### C MP, GFR #### [address] [address] CMPon 03-21-2023 Albumin Level 4.0 G/dL Normal 3.4-4.8 [facility] ([place]) Comment on above: Performed By: #### C MP, GFR #### [address] [address] Albumin/Globulin [Mass ratio] 1.1 {ratio} Normal 1.1-2.5 [facility] ([place]) Comment on above: Performed By: #### C MP, GFR #### [address] [address] ALP [Catalytic activity/Vol] 138 U/L High 40-135 [facility] ([place]) Comment on above: Performed By: #### C MP, GFR #### [address] [address] ALT [Catalytic activity/Vol] 21 U/L Normal 14-59 [facility] ([place]) Comment on above: Performed By: #### C MP, GFR #### [address] [address] AST [Catalytic activity/Vol] 19 U/L Normal 10-40 [facility] ([place]) Comment on above: Performed By: #### C MP, GFR #### [address] [address] Bili Total 0.5 mg/dL Normal 0.2-1.0 [facility] ([place]) Comment on above: Result Comment: Use of this assay is not recommended for patients undergoing treatment with eltrombopag due to the potential for falsely elevated results. Performed By: #### C MP, GFR #### [address] [address] BUN/Creatinine Ratio 29 ratio High 7-27 [facility] ([place]) Comment on above: Performed By: #### C MP, GFR #### [address] [address] Calcium [Mass/Vol] 9.2 mg/dL Normal 8.4-10.2 [facility] ([place]) Comment on above: Performed By: #### C MP, GFR #### [address] [address] Chloride [Moles/Vol] 102 mmol/L Normal 98-107 [facility] ([place]) Comment on above: Performed By: #### C MP, GFR #### [address] [address] CO2 [Moles/Vol] 27 mmol/L Normal 23-31 [facility] ([place]) Comment on above: Performed By: #### C MP, GFR #### [address] [address] Creatinine [Mass/Vol] 0.69 mg/dL Normal 0.55-1.02 [facility] ([place]) Comment on above: Performed By: #### C MP, GFR #### [address] [address] Electrolyte Balance 13.0 mEq/L Normal 4.0-15.0 [facility] ([place]) Comment on above: Performed By: #### C MP, GFR #### [address] [address] Globulin 3.8 G/dL Normal [facility] ([place]) Comment on above: Performed By: #### C MP, GFR #### [address] [address] Glucose [Mass/Vol] 94 mg/dL Normal 80-115 [facility] ([place]) Comment on above: Performed By: #### C MP, GFR #### [address] [address] Potassium [Moles/Vol] 4.8 mmol/L Normal 3.5-5.1 [facility] ([place]) Comment on above: Performed By: #### C MP, GFR #### [address] [address] Sodium [Moles/Vol] 142 mmol/L Normal 136-145 [facility] ([place]) Comment on above: Performed By: #### C MP, GFR #### [address] [address] Total Protein 7.8 G/dL Normal 6.4-8.2 [facility] ([place]) Comment on above: Performed By: #### C MP, GFR #### [address] [address] Urea nitrogen [Mass/Vol] 20 mg/dL High 7-18 [facility] ([place]) Comment on above: Performed By: #### C MP, GFR #### [address] [address] LABORATORYOrdered By: SYSTEM SYSTEM on 03-20-2023 Albumin BCP dye [Mass/Vol] 4.0 G/dL Invalid Interpretation Code 3.4 - 4.8 G/dL AO ADM SS Albumin/Globulin [Mass ratio] 1.1 {ratio} Invalid Interpretation Code 1.1 - 2.5 ratio AO ADM SS ALP [Catalytic activity/Vol] 138 U/L Invalid Interpretation Code 40 - 135 U/L AO ADM SS ALT With P-5'-P [Catalytic activity/Vol] 21 U/L Invalid Interpretation Code 14 - 59 U/L AO ADM SS AST With P-5'-P [Catalytic activity/Vol] 19 U/L Invalid Interpretation Code 10 - 40 U/L AO ADM SS Bilirubin [Mass/Vol] 0.5 mg/dL Invalid Interpretation Code 0.2 - 1.0 mg/dL AO ADM SS Comment on above: Interpretive Data: U se of this assay is not recommended for patients undergoing treatment with eltrombopag due to the potential for falsely elevated results. Calcium [Mass/Vol] 9.2 mg/dL Invalid Interpretation Code 8.4 - 10.2 mg/dL AO ADM SS Chloride [Moles/Vol] 102 mmol/L Invalid Interpretation Code 98 - 107 mmol/L AO ADM SS CO2 [Moles/Vol] 27 mmol/L Invalid Interpretation Code 23 - 31 mmol/L AO ADM SS Creatinine [Mass/Vol] 0.69 mg/dL Invalid Interpretation Code 0.55 - 1.02 mg/dL AO ADM SS Electrolyte Balance 13.0 mEq/L Invalid Interpretation Code 4.0 - 15.0 mEq/L AO ADM SS GFR/1.73 sq M.predicted among blacks MDRD (S/P/Bld) [Vol rate/Area] 102 ml/min/1.73sqm Invalid Interpretation Code AO Chemistry S Comment on above: Interpretive Data: GFR Population mean for , Non- Americans Ages 20-29 = 116 mL/min/1.73 sq.m. Ages 30-39 = 107 mL/min/1.73 sq.m. Ages 40-49 = 99 mL/min/1.73 sq.m. Ages 50-59 = 93 mL/min/1.73 sq.m. Ages 60-69 = 85 mL/min/1.73 sq.m. Ages 70+ = 75 mL/min/1.73 sq.m. Chronic Kidney Disease: Less than 60 mL/min/1.73 square meters End Stage Renal Disease: Less than 15 mL/min/1.73 square meters GFR/1.73 sq M.predicted among non-blacks MDRD (S/P/Bld) [Vol rate/Area] 84 ml/min/1.73sqm Invalid Interpretation Code AO Chemistry S Comment on above: Interpretive Data: GFR Population mean for , Non- Americans Ages 20-29 = 116 mL/min/1.73 sq.m. Ages 30-39 = 107 mL/min/1.73 sq.m. Ages 40-49 = 99 mL/min/1.73 sq.m. Ages 50-59 = 93 mL/min/1.73 sq.m. Ages 60-69 = 85 mL/min/1.73 sq.m. Ages 70+ = 75 mL/min/1.73 sq.m. Chronic Kidney Disease: Less than 60 mL/min/1.73 square meters End Stage Renal Disease: Less than 15 mL/min/1.73 square meters Globulin 3.8 G/dL Invalid Interpretation Code AO ADM SS Glucose [Mass/Vol] 94 mg/dL Invalid Interpretation Code 80 - 115 mg/dL AO ADM SS Potassium [Moles/Vol] 4.8 mmol/L Invalid Interpretation Code 3.5 - 5.1 mmol/L AO ADM SS Protein [Mass/Vol] 7.8 G/dL Invalid Interpretation Code 6.4 - 8.2 G/dL AO ADM SS Sodium [Moles/Vol] 142 mmol/L Invalid Interpretation Code 136 - 145 mmol/L AO ADM SS Urea nitrogen [Mass/Vol] 20 mg/dL Invalid Interpretation Code 7 - 18 mg/dL AO ADM SS Urea nitrogen/Creatinine [Mass ratio] 29 ratio Invalid Interpretation Code 7 - 27 ratio AO ADM SS .GFRon 03-13-2023 GFR 79 ml/min/1.73sqm Normal [facility] ([place]) Comment on above: Result Comment: GFR Population mean for , Non- Americans Ages 20-29 = 116 mL/min/1.73 sq.m. Ages 30-39 = 107 mL/min/1.73 sq.m. Ages 40-49 = 99 mL/min/1.73 sq.m. Ages 50-59 = 93 mL/min/1.73 sq.m. Ages 60-69 = 85 mL/min/1.73 sq.m. Ages 70+ = 75 mL/min/1.73 sq.m. Chronic Kidney Disease: Less than 60 mL/min/1.73 square meters End Stage Renal Disease: Less than 15 mL/min/1.73 square meters Performed By: #### G , CMP #### [address] [address] GFR Non- 65 ml/min/1.73sqm Normal [facility] ([place]) Comment on above: Result Comment: GFR Population mean for , Non- Americans Ages 20-29 = 116 mL/min/1.73 sq.m. Ages 30-39 = 107 mL/min/1.73 sq.m. Ages 40-49 = 99 mL/min/1.73 sq.m. Ages 50-59 = 93 mL/min/1.73 sq.m. Ages 60-69 = 85 mL/min/1.73 sq.m. Ages 70+ = 75 mL/min/1.73 sq.m. Chronic Kidney Disease: Less than 60 mL/min/1.73 square meters End Stage Renal Disease: Less than 15 mL/min/1.73 square meters Performed By: #### G FR, CMP #### [address] [address] CMPon 03-13-2023 Albumin Level 4.0 G/dL Normal 3.4-4.8 [facility] ([place]) Comment on above: Performed By: #### Smith RODRIGUEZ, CMP #### [address] [address] Albumin/Globulin [Mass ratio] 1.1 {ratio} Normal 1.1-2.5 [facility] ([place]) Comment on above: Performed By: #### Smith RODRIGUEZ, CMP #### [address] [address] ALP [Catalytic activity/Vol] 118 U/L Normal 40-135 [facility] ([place]) Comment on above: Performed By: #### Smith RODRIGUEZ, CMP #### [address] [address] ALT [Catalytic activity/Vol] 25 U/L Normal 14-59 [facility] ([place]) Comment on above: Performed By: #### Smith RODRIGUEZ, CMP #### [address] [address] AST [Catalytic activity/Vol] 22 U/L Normal 10-40 [facility] ([place]) Comment on above: Performed By: #### Smith RODRIGUEZ, CMP #### [address] [address] Bili Total 0.5 mg/dL Normal 0.2-1.0 [facility] ([place]) Comment on above: Result Comment: Use of this assay is not recommended for patients undergoing treatment with eltrombopag due to the potential for falsely elevated results. Performed By: #### Smith RODRIGUEZ, CMP #### [address] [address] BUN/Creatinine Ratio 26 ratio Normal 7-27 [facility] ([place]) Comment on above: Performed By: #### Smith RODRIGUEZ, CMP #### [address] [address] Calcium [Mass/Vol] 9.6 mg/dL Normal 8.4-10.2 [facility] ([place]) Comment on above: Performed By: #### Smith RODRIGUEZ, CMP #### [address] [address] Chloride [Moles/Vol] 101 mmol/L Normal 98-107 [facility] ([place]) Comment on above: Performed By: #### G FR, CMP #### [address] [address] CO2 [Moles/Vol] 26 mmol/L Normal 23-31 [facility] ([place]) Comment on above: Performed By: #### G , CMP #### [address] [address] Creatinine [Mass/Vol] 0.86 mg/dL Normal 0.55-1.02 [facility] ([place]) Comment on above: Performed By: #### Smith RODRIGUEZ, CMP #### [address] [address] Electrolyte Balance 9.0 mEq/L Normal 4.0-15.0 [facility] ([place]) Comment on above: Performed By: #### Smith RODRIGUEZ, CMP #### [address] [address] Globulin 3.7 G/dL Normal [facility] ([place]) Comment on above: Performed By: #### Smith RODRIGUEZ, CMP #### [address] [address] Glucose [Mass/Vol] 90 mg/dL Normal 80-115 [facility] ([place]) Comment on above: Performed By: #### G , CMP #### [address] [address] Potassium [Moles/Vol] 5.7 mmol/L High 3.5-5.1 [facility] ([place]) Comment on above: Performed By: #### G FR, CMP #### [address] [address] Sodium [Moles/Vol] 136 mmol/L Normal 136-145 [facility] ([place]) Comment on above: Performed By: #### G , CMP #### [address] [address] Total Protein 7.7 G/dL Normal 6.4-8.2 [facility] ([place]) Comment on above: Performed By: #### G , CMP #### [address] [address] Urea nitrogen [Mass/Vol] 22 mg/dL High 7-18 [facility] ([place]) Comment on above: Performed By: #### G , CMP #### [address] [address] .GFRon 11-15-2022 GFR 86 ml/min/1.73sqm Normal [facility] ([place]) Comment on above: Result Comment: GFR Population mean for , Non- Americans Ages 20-29 = 116 mL/min/1.73 sq.m. Ages 30-39 = 107 mL/min/1.73 sq.m. Ages 40-49 = 99 mL/min/1.73 sq.m. Ages 50-59 = 93 mL/min/1.73 sq.m. Ages 60-69 = 85 mL/min/1.73 sq.m. Ages 70+ = 75 mL/min/1.73 sq.m. Chronic Kidney Disease: Less than 60 mL/min/1.73 square meters End Stage Renal Disease: Less than 15 mL/min/1.73 square meters Performed By: #### G , CMP #### [address] [address] GFR Non- 71 ml/min/1.73sqm Normal [facility] ([place]) Comment on above: Result Comment: GFR Population mean for , Non- Americans Ages 20-29 = 116 mL/min/1.73 sq.m. Ages 30-39 = 107 mL/min/1.73 sq.m. Ages 40-49 = 99 mL/min/1.73 sq.m. Ages 50-59 = 93 mL/min/1.73 sq.m. Ages 60-69 = 85 mL/min/1.73 sq.m. Ages 70+ = 75 mL/min/1.73 sq.m. Chronic Kidney Disease: Less than 60 mL/min/1.73 square meters End Stage Renal Disease: Less than 15 mL/min/1.73 square meters Performed By: #### G FR, CMP #### [address] [address] CMPon 11-15-2022 Albumin Level 3.8 G/dL Normal 3.4-4.8 [facility] ([place]) Comment on above: Performed By: #### V IDH, LIPID, CMP, GFR #### [address] [address] Albumin/Globulin [Mass ratio] 1.3 {ratio} Normal 1.1-2.5 [facility] ([place]) Comment on above: Performed By: #### V IDH, LIPID, CMP, GFR #### [address] [address] ALP [Catalytic activity/Vol] 101 U/L Normal 40-135 [facility] ([place]) Comment on above: Performed By: #### V IDH, LIPID, CMP, GFR #### [address] [address] ALT [Catalytic activity/Vol] 25 U/L Normal 14-59 [facility] ([place]) Comment on above: Performed By: #### V IDH, LIPID, CMP, GFR #### [address] [address] AST [Catalytic activity/Vol] 23 U/L Normal 10-40 [facility] ([place]) Comment on above: Performed By: #### V IDH, LIPID, CMP, GFR #### [address] [address] Bili Total 0.5 mg/dL Normal 0.2-1.0 [facility] ([place]) Comment on above: Result Comment: Use of this assay is not recommended for patients undergoing treatment with eltrombopag due to the potential for falsely elevated results. Performed By: #### V IDH, LIPID, CMP, GFR #### [address] [address] BUN/Creatinine Ratio 25 ratio Normal 7-27 [facility] ([place]) Comment on above: Performed By: #### V IDH, LIPID, CMP, GFR #### [address] [address] Calcium [Mass/Vol] 8.7 mg/dL Normal 8.4-10.2 [facility] ([place]) Comment on above: Performed By: #### V IDH, LIPID, CMP, GFR #### [address] [address] Chloride [Moles/Vol] 106 mmol/L Normal 98-107 [facility] ([place]) Comment on above: Performed By: #### V IDH, LIPID, CMP, GFR #### [address] [address] CO2 [Moles/Vol] 29 mmol/L Normal 23-31 [facility] ([place]) Comment on above: Performed By: #### V IDH, LIPID, CMP, GFR #### [address] [address] Creatinine [Mass/Vol] 0.80 mg/dL Normal 0.55-1.02 [facility] ([place]) Comment on above: Performed By: #### V IDH, LIPID, CMP, GFR #### [address] [address] Electrolyte Balance 7.0 mEq/L Normal 4.0-15.0 [facility] ([place]) Comment on above: Performed By: #### V IDH, LIPID, CMP, GFR #### [address] [address] Globulin 2.9 G/dL Normal [facility] ([place]) Comment on above: Performed By: #### V IDH, LIPID, CMP, GFR #### [address] [address] Glucose [Mass/Vol] 80 mg/dL Normal 80-115 [facility] ([place]) Comment on above: Performed By: #### V IDH, LIPID, CMP, GFR #### [address] [address] Potassium [Moles/Vol] 5.0 mmol/L Normal 3.5-5.1 [facility] ([place]) Comment on above: Performed By: #### V IDH, LIPID, CMP, GFR #### [address] [address] Sodium [Moles/Vol] 142 mmol/L Normal 136-145 [facility] ([place]) Comment on above: Performed By: #### V IDH, LIPID, CMP, GFR #### [address] [address] Total Protein 6.7 G/dL Normal 6.4-8.2 [facility] ([place]) Comment on above: Performed By: #### V IDH, LIPID, CMP, GFR #### [address] [address] Urea nitrogen [Mass/Vol] 20 mg/dL High 7-18 [facility] ([place]) Comment on above: Performed By: #### V IDH, LIPID, CMP, GFR #### [address] [address] LIPIDon 11-15-2022 Cholesterol [Mass/Vol] 158 mg/dL Normal 0-200 [facility] ([place]) Comment on above: Result Comment: Chol esterol Reference Interval: Less than 200 Desirable 200-239 Borderline high risk 240 and above High risk Performed By: #### G FR, CMP #### [address] [address] Cholesterol in HDL [Mass/Vol] 53 mg/dL Normal 40-60 [facility] ([place]) Comment on above: Performed By: #### G FR, CMP #### [address] [address] Cholesterol in LDL [Mass/Vol] 83 mg/dL Normal 0-130 [facility] ([place]) Comment on above: Performed By: #### G FR, CMP #### [address] [address] Triglyceride [Mass/Vol] 111 mg/dL Normal 0-150 [facility] ([place]) Comment on above: Result Comment: Trig lyceride Reference Interval: Less than 150 Normal 150-199 Borderline high risk 200-499 High risk 500 or higher Very high risk Performed By: #### G FR, CMP #### [place] [id number] MALBRon 11-15-2022 U Creatinine 109.9 mg/dL Normal 28.0-117.0 [facility] ([place]) Comment on above: Performed By: #### G FR, CMP #### [address] [address] U Microalb 7702 mcg/dL Normal [facility] ([place]) Comment on above: Performed By: #### G FR, CMP #### [address] [address] U Ratio Alb/Cre 70 mcg/mg High 0-30 [facility] ([place]) Comment on above: Performed By: #### G , CMP #### [place] [address] VIDHon 11-15-2022 Vit. D 25-Hydroxy 52.1 ng/mL Normal [facility] ([place]) Comment on above: Result Comment: Inte rpretive Values Based on Total 25(OH) Vitamin D: Deficient <20 ng/mL Insufficient 20 - <30 ng/mL Sufficient 30-100 ng/mL Performed By: #### V IDH, LIPID, CMP, GFR #### [place] [address] LABORATORYOrdered By: Susan Quinones on 05-04-2022 Albumin BCP dye [Mass/Vol] 3.9 G/dL Invalid Interpretation Code 3.4 - 4.8 G/dL AO ADM SS Albumin/Globulin [Mass ratio] 1.1 {ratio} Invalid Interpretation Code 1.1 - 2.5 ratio AO ADM SS ALP [Catalytic activity/Vol] 109 U/L Invalid Interpretation Code 40 - 135 U/L AO ADM SS ALT With P-5'-P [Catalytic activity/Vol] 25 U/L Invalid Interpretation Code 14 - 59 U/L AO ADM SS AST With P-5'-P [Catalytic activity/Vol] 25 U/L Invalid Interpretation Code 10 - 40 U/L AO ADM SS Bilirubin [Mass/Vol] 0.4 mg/dL Invalid Interpretation Code 0.2 - 1.0 mg/dL AO ADM SS Calcium [Mass/Vol] 10.0 mg/dL Invalid Interpretation Code 8.4 - 10.2 mg/dL AO ADM SS Chloride [Moles/Vol] 105 mmol/L Invalid Interpretation Code 98 - 107 mmol/L AO ADM SS Cholesterol [Mass/Vol] 214 mg/dL Invalid Interpretation Code 0 - 200 mg/dL AO ADM SS Cholesterol in HDL [Mass/Vol] 58 mg/dL Invalid Interpretation Code 40 - 60 mg/dL AO ADM SS Cholesterol in LDL [Mass/Vol] 126 mg/dL Invalid Interpretation Code 0 - 130 mg/dL AO ADM SS CO2 [Moles/Vol] 29 mmol/L Invalid Interpretation Code 23 - 31 mmol/L AO ADM SS Creatinine [Mass/Vol] 0.85 mg/dL Invalid Interpretation Code 0.55 - 1.02 mg/dL AO ADM SS Electrolyte Balance 6.0 mEq/L Invalid Interpretation Code 4.0 - 15.0 mEq/L AO ADM SS Globulin 3.6 G/dL Invalid Interpretation Code AO ADM SS Glucose [Mass/Vol] 87 mg/dL Invalid Interpretation Code 80 - 115 mg/dL AO ADM SS Potassium [Moles/Vol] 5.8 mmol/L Invalid Interpretation Code 3.5 - 5.1 mmol/L AO ADM SS Protein [Mass/Vol] 7.5 G/dL Invalid Interpretation Code 6.4 - 8.2 G/dL AO ADM SS Sodium [Moles/Vol] 140 mmol/L Invalid Interpretation Code 136 - 145 mmol/L AO ADM SS Triglyceride [Mass/Vol] 150 mg/dL Invalid Interpretation Code 0 - 150 mg/dL AO ADM SS Urea nitrogen [Mass/Vol] 18 mg/dL Invalid Interpretation Code 7 - 18 mg/dL AO ADM SS Urea nitrogen/Creatinine [Mass ratio] 21 ratio Invalid Interpretation Code 7 - 27 ratio AO ADM SS Vit. D 25-Hydroxy 61.7 ng/mL Invalid Interpretation Code AO ADM SS LABORATORYOrdered By: SYSTEM SYSTEM on 05-04-2022 GFR 80 ml/min/1.73sqm Invalid Interpretation Code AO Chemistry S GFR Non- 66 ml/min/1.73sqm Inval id Interpretation Code AO Chemistry S LABORATORYOrdered By: Gavi Bennett on 04-22-2021 Albumin BCP dye [Mass/Vol] 3.9 G/dL Invalid Interpretation Code 3.4 - 4.8 G/dL AO ADM SS Albumin/Globulin [Mass ratio] 1.2 {ratio} Invalid Interpretation Code 1.1 - 2.5 ratio AO ADM SS ALP [Catalytic activity/Vol] 90 U/L Invalid Interpretation Code 40 - 135 U/L AO ADM SS ALT With P-5'-P [Catalytic activity/Vol] 27 U/L Invalid Interpretation Code 14 - 59 U/L AO ADM SS AST With P-5'-P [Catalytic activity/Vol] 23 U/L Invalid Interpretation Code 10 - 40 U/L AO ADM SS Bilirubin [Mass/Vol] 0.4 mg/dL Invalid Interpretation Code 0.2 - 1.0 mg/dL AO ADM SS Calcium [Mass/Vol] 9.5 mg/dL Invalid Interpretation Code 8.4 - 10.2 mg/dL AO ADM SS Chloride [Moles/Vol] 104 mmol/L Invalid Interpretation Code 98 - 107 mmol/L AO ADM SS Cholesterol [Mass/Vol] 180 mg/dL Invalid Interpretation Code 0 - 200 mg/dL AO ADM SS Cholesterol in HDL [Mass/Vol] 59 mg/dL Invalid Interpretation Code 40 - 60 mg/dL AO ADM SS Cholesterol in LDL [Mass/Vol] 104 mg/dL Invalid Interpretation Code 0 - 130 mg/dL AO ADM SS CO2 [Moles/Vol] 28 mmol/L Invalid Interpretation Code 23 - 31 mmol/L AO ADM SS Creatinine [Mass/Vol] 0.88 mg/dL Invalid Interpretation Code 0.55 - 1.02 mg/dL AO ADM SS Electrolyte Balance 9.0 mEq/L Invalid Interpretation Code AO ADM SS Globulin 3.2 G/dL Invalid Interpretation Code AO ADM SS Glucose [Mass/Vol] 86 mg/dL Invalid Interpretation Code 80 - 115 mg/dL AO ADM SS Potassium [Moles/Vol] 5.6 mmol/L Invalid Interpretation Code 3.5 - 5.1 mmol/L AO ADM SS Protein [Mass/Vol] 7.1 G/dL Invalid Interpretation Code 6.4 - 8.2 G/dL AO ADM SS Sodium [Moles/Vol] 141 mmol/L Invalid Interpretation Code 136 - 145 mmol/L AO ADM SS Triglyceride [Mass/Vol] 83 mg/dL Invalid Interpretation Code 0 - 150 mg/dL AO ADM SS Urea nitrogen [Mass/Vol] 21 mg/dL Invalid Interpretation Code 7 - 18 mg/dL AO ADM SS Urea nitrogen/Creatinine [Mass ratio] 24 ratio Invalid Interpretation Code 7 - 27 ratio AO ADM SS Vit. D 25-Hydroxy 96.4 ng/mL Invalid Interpretation Code AO ADM SS LABORATORYOrdered By: Susan Quinones on 04-22-2021 Basophil, Absolute 0.00 103/mcL Invalid Interpretation Code 0.00 - 0.19 10^3/mcL AO Auto Heme SS Basophils/100 WBC (Bld) 0.6 % Invalid Interpretation Code 0.0 - 2.5 % AO Auto Heme SS Eosinophil, Absolute 0.20 103/mcL Invalid Interpretation Code 0.00 - 0.40 10^3/mcL AO Auto Heme SS Eosinophils/100 WBC (Bld) 3.6 % Invalid Interpretation Code 0.0 - 7.0 % AO Auto Heme SS Erythrocyte distribution width (RBC) [Ratio] 13.3 % Invalid Interpretation Code 11.5 - 14.5 % AO Auto Heme SS Hematocrit (Bld) [Volume fraction] 42.4 % Invalid Interpretation Code 37.0 - 47.0 % AO Auto Heme SS Hemoglobin (Bld) [Mass/Vol] 14.2 G/dL Invalid Interpretation Code 12.0 - 16.0 G/dL AO Auto Heme SS Lymphocyte, Absolute 1.80 103/mcL Invalid Interpretation Code 0.77 - 3.85 10^3/mcL AO Auto Heme SS Lymphocytes/100 WBC (Bld) 30.2 % Invalid Interpretation Code 10.0 - 50.0 % AO Auto Heme SS MCH (RBC) [Entitic mass] 30.7 pg Invalid Interpretation Code 27.0 - 31.2 pg AO Auto Heme SS MCHC (RBC) [Mass/Vol] 33.4 G/dL Invalid Interpretation Code 33.0 - 37.0 G/dL AO Auto Heme SS MCV (RBC) [Entitic vol] 92.1 fL Invalid Interpretation Code 80.0 - 94.0 fL AO Auto Heme SS Monocyte, Absolute 0.60 103/mcL Invalid Interpretation Code 0.15 - 1.00 10^3/mcL AO Auto Heme SS Monocytes/100 WBC (Bld) 9.9 % Invalid Interpretation Code 1.7 - 13.0 % AO Auto Heme SS Neutrophil, Absolute 3.30 103/mcL Invalid Interpretation Code 2.85 - 6.16 10^3/mcL AO Auto Heme SS Neutrophils/100 WBC (Bld) 55.7 % Invalid Interpretation Code 37.0 - 80.0 % AO Auto Heme SS Platelet mean volume (Bld) [Entitic vol] 8.9 fL Invalid Interpretation Code 7.4 - 10.4 fL AO Auto Heme SS Platelets (Bld) [#/Vol] 279 103/mcL Invalid Interpretation Code 130 - 400 10^3/mcL AO Auto Heme SS RBC (Bld) [#/Vol] 4.60 106/mcL Invalid Interpretation Code 4.20 - 5.40 10^6/mcL AO Auto Heme SS WBC (Bld) [#/Vol] 6.00 103/mcL Invalid Interpretation Code 4.60 - 10.80 10^3/mcL AO Auto Heme SS LABORATORYOrdered By: SYSTEM SYSTEM on 04-22-2021 GFR 77 ml/min/1.73sqm Invalid Interpretation Code AO Chemistry S GFR Non- 64 ml/min/1.73sqm Inval id Interpretation Code AO Chemistry S MA MAMMOGRAM SCREENING BILAT ERAL W/TOMOon 12-08-2016 MA MAMMOGRAM SCREENING BILATERAL W/TRAV ORIGINALFROM:[address] [address]Gmjgr: [phone] PROCEDURE FOR:[id number] [place], [place] [address]Zyev: [phone]#: [id number]#: [id number]#: [id number]: 3Age: 61 TO:CANDY WOODSON [address] [place], [place] [address] #[id number] DIGITAL SCREENING MAMMOGRAM 3D/2D WITH CAD WITH MEDIOLATERAL OBLIQUE CRANIOCAUDAL: 12/08/2016Comparison is made to exams dated: 09/17/2015 mammogram and 09/09/2014 mammogram - [facility]. There are scattered fibroglandular elements in both breasts. Current study was also evaluated with a Computer Aided Detection (CAD) system. There are benign calcifications in both breasts. No significant masses, calcifications, or other findings are seen in either breast. There has been no significant interval change. IMPRESSION: BENIGNThere is no mammographic evidence of malignancy. A 1 year screening mammogram is recommended. HENNA padgett/cliff:12/09/2016 10:52:33 Paginator: MANUEL COLIN RT(R)(M)(CT) [facility] BI-RADS 1&2 Mammogram BI-RADS: 2 Benign Normal [facility] Vital Signs Date Time Vital Sign Value Performing Clinician Jorge Alberto rutlegde 08-19-2024 14:24-0400 Diastolic blood pressure 98 mm[Hg] Candy Chintan WASH OIL PUMP OPERATOR HELPER-C Work Phone: [facility] 08-19-2024 14:24-0400 Heart rate 64 /min Candy Chintan WASH OIL PU[employer] OPERATOR HELPER-C Work Phone: [facility] 08-19-2024 14:24-0400 Respiratory rate 18 /min Candy Stonewall WASH OIL PU[employer] OPERATOR HELPER-C Work Phone: [facility] 08-19-2024 14:24-0400 SaO2% (BldA) [Mass fraction] 97 % Candy Chintan WASH OIL PUMP OPERATOR HELPER-C Work Phone: [facility] 08-19-2024 14:24-0400 Systolic blood pressure 186 mm[Hg] Candy Chintan WASH OIL PUMP OPERATOR HELPER-C Work Phone: [facility] 08-19-2024 12:32-0400 Body height 175.26 cm Candy Chintan WASH OIL PU[employer] OPERATOR HELPER-C Work Phone: [facility] 08-19-2024 12:32-0400 Body mass index (BMI) [Ratio] 25.1 kg/m2 Candy Chintan WASH OIL PU[employer] OPERATOR HELPER-C Work Phone: [facility] 08-19-2024 12:32-0400 Body weight 77.11 kg Candy Stonewall WASH OIL PUMP OPERATOR HELPER-C Work Phone: [facility] 05-24-2024 10:29-0500 Body height 176 cm MAURIZIO PENA MD [facility] 05-24-2024 10:29-0500 Body weight 82.7 kg MAURIZIO PENA MD [facility] 05-24-2024 10:29-0500 Body weight 26.7 kg/m2 MAURIZIO PENA MD [facility] 05-24-2024 10:23-0500 Body height 176 cm MAURIZIO PENA MD [facility] 05-24-2024 10:23-0500 Body weight 82.7 kg MAURIZIO PENA MD [facility] 06-14-2023 08:52-0500 Body temperature 97.4 [degF] WASH OIL PUMP OPERATOR HELPER-C Candy Woodson WASH OIL PUMP OPERATOR HELPER Work Phone: [facility] 06-14-2023 08:52-0500 Diastolic blood pressure 96 mm[Hg] WASH OIL PUMP OPERATOR HELPER-C Candy Woodson WASH OIL PUMP OPERATOR HELPER Work Phone: [facility] 06-14-2023 08:52-0500 Heart rate 69 /min WASH OIL PUMP OPERATOR HELPER-C Candy Woodson WASH OIL PUMP OPERATOR HELPER Work Phone: [facility] 06-14-2023 08:52-0500 Respiratory rate 18 /min WASH OIL PUMP OPERATOR HELPER-C Candy Woodson WASH OIL PUMP OPERATOR HELPER Work Phone: [facility] 06-14-2023 08:52-0500 SaO2% (BldA) [Mass fraction] 98 % WASH OIL PUMP OPERATOR HELPER-C Candy Woodson WASH OIL PUMP OPERATOR HELPER Work Phone: [facility] 06-14-2023 08:52-0500 Systolic blood pressure 159 mm[Hg] WASH OIL PUMP OPERATOR HELPER-C Candy Woodson WASH OIL PUMP OPERATOR HELPER Work Phone: [facility] 06-14-2023 03:22-0500 Body mass index (BMI) [Ratio] 26 kg/m2 WASH OIL PUMP OPERATOR HELPER-C Candy Woodson WASH OIL PUMP OPERATOR HELPER Work Phone: [facility] 06-14-2023 03:22-0500 Body weight 79.8 kg WASH OIL PUMP OPERATOR HELPER-C Candy Woodson WASH OIL PUMP OPERATOR HELPER Work Phone: [facility] 06-12-2023 21:20-0500 Body height 175.26 cm WASH OIL PUMP OPERATOR HELPER-C Candy Woodson WASH OIL PUMP OPERATOR HELPER Work Phone: [facility] 06-12-2023 20:00-0500 Respiratory rate 16 /min WASH OIL PUMP OPERATOR HELPER-C Candy Woodson WASH OIL PUMP OPERATOR HELPER Work Phone: [facility] 06-12-2023 14:14-0500 Body mass index (BMI) [Ratio] 26.2 kg/m2 WASH OIL PUMP OPERATOR HELPER-C Candy Woodson WASH OIL PUMP OPERATOR HELPER Work Phone: [facility] 06-12-2023 14:14-0500 Body weight 82.8 kg WASH OIL PUMP OPERATOR HELPER-C Candy Woodson WASH OIL PUMP OPERATOR HELPER Work Phone: [facility] 06-12-2023 12:04-0500 Body height 177.8 cm WASH OIL PUMP OPERATOR HELPER-C Candy Woodson WASH OIL PUMP OPERATOR HELPER Work Phone: [facility] 06-12-2023 12:04-0500 Body temperature 96.6 [degF] WASH OIL PUMP OPERATOR HELPER-C Candy Woodson WASH OIL PUMP OPERATOR HELPER Work Phone: [facility] 06-12-2023 12:04-0500 Diastolic blood pressure 115 mm[Hg] WASH OIL PUMP OPERATOR HELPER-C Candy Woodson WASH OIL PUMP OPERATOR HELPER Work Phone: [facility] 06-12-2023 12:04-0500 Heart rate 108 /min WASH OIL PUMP OPERATOR HELPER-C Candy Woodson WASH OIL PUMP OPERATOR HELPER Work Phone: [facility] 06-12-2023 12:04-0500 SaO2% (BldA) [Mass fraction] 94 % WASH OIL PUMP OPERATOR HELPER-C Candy Woodson WASH OIL PUMP OPERATOR HELPER Work Phone: [facility] 06-12-2023 12:04-0500 Systolic blood pressure 164 mm[Hg] WASH OIL PUMP OPERATOR HELPER-C Candy Woodson WASH OIL PUMP OPERATOR HELPER Work Phone: [facility] 06-07-2023 11:00-0500 Body temperature 97.6 [degF] WASH OIL PUMP OPERATOR HELPER-C Candy Woodson WASH OIL PUMP OPERATOR HELPER Work Phone: [facility] 06-07-2023 11:00-0500 Diastolic blood pressure 87 mm[Hg] WASH OIL PUMP OPERATOR HELPER-C Candy Woodson WASH OIL PUMP OPERATOR HELPER Work Phone: [facility] 06-07-2023 11:00-0500 Heart rate 87 /min WASH OIL PUMP OPERATOR HELPER-C Candy Woodson WASH OIL PUMP OPERATOR HELPER Work Phone: [facility] 06-07-2023 11:00-0500 Respiratory rate 18 /min WASH OIL PUMP OPERATOR HELPER-C Candy Woodson WASH OIL PUMP OPERATOR HELPER Work Phone: [facility] 06-07-2023 11:00-0500 SaO2% (BldA) [Mass fraction] 97 % WASH OIL PUMP OPERATOR HELPER-C Candy Woodson WASH OIL PUMP OPERATOR HELPER Work Phone: [facility] 06-07-2023 11:00-0500 Systolic blood pressure 128 mm[Hg] WASH OIL PUMP OPERATOR HELPER-C Candy Woodson WASH OIL PUMP OPERATOR HELPER Work Phone: [facility] 06-06-2023 11:13-0500 Body mass index (BMI) [Ratio] 26.4 kg/m2 WASH OIL PUMP OPERATOR HELPER-C Candy Woodson WASH OIL PUMP OPERATOR HELPER Work Phone: [facility] 06-06-2023 11:13-0500 Body weight 82.32 kg WASH OIL PUMP OPERATOR HELPER-C Candy Woodson WASH OIL PUMP OPERATOR HELPER Work Phone: [facility] 05-31-2023 13:29-0500 Body height 176.53 cm WASH OIL PUMP OPERATOR HELPER-C Candy Woodson WASH OIL PUMP OPERATOR HELPER Work Phone: [facility] 05-27-2023 07:44-0500 Body temperature 97.6 [degF] WASH OIL PUMP OPERATOR HELPER-C Candy Woodson WASH OIL PUMP OPERATOR HELPER Work Phone: [facility] 05-27-2023 07:44-0500 Diastolic blood pressure 94 mm[Hg] WASH OIL PUMP OPERATOR HELPER-C Candy Woodson WASH OIL PUMP OPERATOR HELPER Work Phone: [facility] 05-27-2023 07:44-0500 Heart rate 63 /min WASH OIL PUMP OPERATOR HELPER-C Candy Woodson WASH OIL PUMP OPERATOR HELPER Work Phone: [facility] 05-27-2023 07:44-0500 Respiratory rate 16 /min WASH OIL PUMP OPERATOR HELPER-C Candy Woodson WASH OIL PUMP OPERATOR HELPER Work Phone: [facility] 05-27-2023 07:44-0500 SaO2% (BldA) [Mass fraction] 98 % WASH OIL PUMP OPERATOR HELPER-C Candy Woodson WASH OIL PUMP OPERATOR HELPER Work Phone: [facility] 05-27-2023 07:44-0500 Systolic blood pressure 162 mm[Hg] WASH OIL PUMP OPERATOR HELPER-C Candy Woodson WASH OIL PUMP OPERATOR HELPER Work Phone: [facility] 05-26-2023 08:02-0500 Body mass index (BMI) [Ratio] 25.4 kg/m2 WASH OIL PUMP OPERATOR HELPER-C Candy Woodson WASH OIL PUMP OPERATOR HELPER Work Phone: [facility] 05-26-2023 08:02-0500 Body weight 78.1 kg WASH OIL PUMP OPERATOR HELPER-C Candy Velasquezpkins WASH OIL PUMP OPERATOR HELPER Work Phone: [facility] Encounters Encounter Date Encounter Type Care Provider Facility Start: 04-09-2025 End: 04-09-2025 ambulatory CANDY WOODSON DEVELOPMENT SYSTEM EFFICIENCY MANAGER - PUBLIC SAFETY DISPATCHER Facility:[facility] Start: 04-09-2025 End: 04-09-2025 Patient encounter procedure CANDY ELLISKINS DEVELOPMENT SYSTEM EFFICIENCY MANAGER - PUBLIC SAFETY DISPATCHER [facility] Start: 12-26-2024 End: 12-26-2024 ambulatory CANDY WOODSON DEVELOPMENT SYSTEM EFFICIENCY MANAGER - PUBLIC SAFETY DISPATCHER Facility:[facility] Start: 12-26-2024 End: 12-26-2024 Patient encounter procedure CANDY WOODSON DEVELOPMENT SYSTEM EFFICIENCY MANAGER - PUBLIC SAFETY DISPATCHER [facility] Start: 12-03-2024 End: 12-03-2024 ambulatory CANDY WOODSON DEVELOPMENT SYSTEM EFFICIENCY MANAGER - PUBLIC SAFETY DISPATCHER Facility:[facility] Start: 12-03-2024 End: 12-03-2024 Patient encounter procedure CANDY WOODSON DEVELOPMENT SYSTEM EFFICIENCY MANAGER - PUBLIC SAFETY DISPATCHER [facility] Start: 08-28-2024 Encounter for other preprocedural examination Danielle Castillo [facility] Start: 08-19-2024 End: 08-19-2024 ambulatory Candy Woodson WASH OIL PUMP OPERATOR HELPER-C Work Phone: [facility] Work Phone: Start: 08-19-2024 End: 08-19-2024 Patient encounter procedure Danielle Castillo PA-C -Radiology, [facility] Work Phone: Start: 08-19-2024 End: 08-19-2024 ambulatory Candy Woodson WASH OIL PUMP OPERATOR HELPER Facility:[facility] Start: 08-16-2024 End: 08-20-2024 ambulatory CANDY WOODSON DEVELOPMENT SYSTEM EFFICIENCY MANAGER - PUBLIC SAFETY DISPATCHER Facility:[facility] Start: 07-15-2024 ambulatory HELIO CASTILLO Facility:[facility] Start: 07-05-2024 ambulatory CANDY SANDOVAL DEVELOPMENT SYSTEM EFFICIENCY MANAGER - PUBLIC SAFETY DISPATCHER Facility:[facility] Start: 06-14-2024 End: 06-14-2024 ambulatory MAURIZIO PENA MD Facility:[facility] Start: 06-14-2024 End: 06-14-2024 Patient encounter procedure MAURIZIO PENA MD [facility] Start: 06-13-2024 ambulatory CANDY Prabhakar VELASQUEZMimi JAIME DEVELOPMENT SYSTEM EFFICIENCY MANAGER - PUBLIC SAFETY DISPATCHER Facility:[facility] Start: 05-30-2024 End: 05-30-2024 ambulatory CANDY Radford CHINTAN DEVELOPMENT SYSTEM EFFICIENCY MANAGER - PUBLIC SAFETY DISPATCHER Facility:[facility] Start: 05-30-2024 End: 05-30-2024 Patient encounter procedure CANDY Prabhakar VELASQUEZCHINTAN DEVELOPMENT SYSTEM EFFICIENCY MANAGER - PUBLIC SAFETY DISPATCHER [facility] Start: 05-24-2024 End: 05-24-2024 ambulatory MAURIZIO PENA MD Facility:[facility] Start: 05-24-2024 End: 05-24-2024 SAME DAY STAY MAURIZIO PENA MD [facility] Start: 04-19-2024 End: 04-19-2024 ambulatory CANDY WOODSON DEVELOPMENT SYSTEM EFFICIENCY MANAGER - PUBLIC SAFETY DISPATCHER Facility:[facility] Start: 04-19-2024 End: 04-19-2024 Patient encounter procedure MAURIZIO PENA MD [facility] Start: 04-15-2024 End: 04-15-2024 ambulatory CANDY WOODSON DEVELOPMENT SYSTEM EFFICIENCY MANAGER - PUBLIC SAFETY DISPATCHER Facility:[facility] Start: 04-15-2024 End: 04-15-2024 Patient encounter procedure CANDY WOODSON DEVELOPMENT SYSTEM EFFICIENCY MANAGER - PUBLIC SAFETY DISPATCHER [facility] Start: 04-08-2024 End: 05-22-2024 Physical therapy management CANDY WOODSON DEVELOPMENT SYSTEM EFFICIENCY MANAGER - PUBLIC SAFETY DISPATCHER [facility] Start: 10-20-2023 End: 10-20-2023 ambulatory Candy Woodson WASH OIL PUMP OPERATOR HELPER Facility:[facility] Start: 10-06-2023 End: 10-07-2023 ambulatory CANDY WOODSON DEVELOPMENT SYSTEM EFFICIENCY MANAGER - PUBLIC SAFETY DISPATCHER Facility: Start: 10-06-2023 End: 10-06-2023 Patient encounter procedure CANDY WOODSON DEVELOPMENT SYSTEM EFFICIENCY MANAGER - PUBLIC SAFETY DISPATCHER [facility] Start: 09-29-2023 End: 09-29-2023 ambulatory Candy Woodson WASH OIL PUMP OPERATOR HELPER Facility:[facility] Start: 06-22-2023 End: 06-22-2023 ambulatory WASH OIL PUMP OPERATOR HELPER-C Candy Woodson WASH OIL PUMP OPERATOR HELPER Work Phone: [facility] Work Phone: Start: 06-22-2023 End: 06-22-2023 Departed Referred WASH OIL PUMP OPERATOR HELPER-C Candy Woodson WASH OIL PUMP OPERATOR HELPER Work Phone: [facility] Start: 06-22-2023 Registered Referred WASH OIL PUMP OPERATOR HELPER-C Sai Woodson WASH OIL PUMP OPERATOR HELPER Work Phone: [facility] Start: 06-15-2023 End: 06-15-2023 ambulatory WASH OIL PUMP OPERATOR HELPER-C Candy Woodson WASH OIL PUMP OPERATOR HELPER Work Phone: [facility] Work Phone: Start: 06-15-2023 End: 06-15-2023 Departed Referred WASH OIL PUMP OPERATOR HELPER-C Candy Velasquezpkins WASH OIL PUMP OPERATOR HELPER Work Phone: [facility] Start: 06-14-2023 Non-patient / Non-visit WASH OIL PUMP OPERATOR HELPER-C Howard Woodson WASH OIL PUMP OPERATOR HELPER Work Phone: [facility] Work Phone: Start: 06-13-2023 Non-patient / Non-visit WASH OIL PUMP OPERATOR HELPER-C Howard Woodson WASH OIL PUMP OPERATOR HELPER Work Phone: [facility] Work Phone: Start: 06-12-2023 Evaluation and manag ement of inpatient WASH OIL PUMP OPERATOR HELPER-C Candy Woodson WASH OIL PUMP OPERATOR HELPER [facility]: Start: 06-12-2023 observation encounter WASH OIL PUMP OPERATOR HELPER-C Antony kim Chong Chintan WASH OIL PUMP OPERATOR HELPER Work Phone: [facility] Work Phone: Start: 06-12-2023 End: 06-14-2023 Evaluation and management of inpatient WASH OIL PUMP OPERATOR HELPER-C Candy Chintan WASH OIL PUMP OPERATOR HELPER [facility] Work [facility]: Start: 06-12-2023 End: 06-14-2023 observation encounter WASH OIL PUMP OPERATOR HELPER-C Candy Chongalvaro VelasquezChintan WASH OIL PUMP OPERATOR HELPER Work Phone: [facility] Work Phone: Start: 06-12-2023 Non-patient / Non-visit WASH OIL PUMP OPERATOR HELPER-C Howard Woodson WASH OIL PUMP OPERATOR HELPER Work Phone: [facility] Work Phone: Start: 06-06-2023 Non-patient / Non-visit WASH OIL PUMP OPERATOR HELPER-C Howard Woodson WASH OIL PUMP OPERATOR HELPER Work Phone: [facility] Work Phone: Start: 06-02-2023 Non-patient / Non-visit WASH OIL PUMP OPERATOR HELPER-C R adeel Velasquezpkins WASH OIL PUMP OPERATOR HELPER Work Phone: [facility] Work Phone: Start: 05-29-2023 Non-patient / Non-visit WASH OIL PUMP OPERATOR HELPER-C R adeel Velasquezpkins WASH OIL PUMP OPERATOR HELPER Work Phone: [facility] Work Phone: Start: 05-27-2023 End: 06-07-2023 Evaluation and management of inpatient WASH OIL PUMP OPERATOR HELPER-C Candy Velasquezpkins WASH OIL PUMP OPERATOR HELPER [facility] Start: 05-26-2023 Non-patient / Non-visit WASH OIL PUMP OPERATOR HELPER-C R adeel Velasquezpkins WASH OIL PUMP OPERATOR HELPER Work Phone: [facility] Work Phone: Start: 05-25-2023 Non-patient / Non-visit WASH OIL PUMP OPERATOR HELPER-C R adeel Velasquezpkins WASH OIL PUMP OPERATOR HELPER Work Phone: [facility] Work Phone: Start: 05-24-2023 Non-patient / Non-visit WASH OIL PUMP OPERATOR HELPER-C R adeel Velasquezpkins WASH OIL PUMP OPERATOR HELPER Work Phone: [facility] Work Phone: Start: 05-22-2023 Non-patient / Non-visit WASH OIL PUMP OPERATOR HELPER-C R adeel Velasquezpkins WASH OIL PUMP OPERATOR HELPER Work Phone: [facility] Work Phone: Start: 05-18-2023 Non-patient / Non-visit WASH OIL PUMP OPERATOR HELPER-C R ichfrank Stonewall WASH OIL PUMP OPERATOR HELPER Work Phone: [facility] Work Phone: Start: 05-17-2023 Non-patient / Non-visit WASH OIL PUMP OPERATOR HELPER-C R ichfrank Stonewall WASH OIL PUMP OPERATOR HELPER Work Phone: [facility] Work Phone: Start: 05-16-2023 Non-patient / Non-visit WASH OIL PUMP OPERATOR HELPER-C Howard Woodson WASH OIL PUMP OPERATOR HELPER Work Phone: [facility] Work Phone: Start: 05-15-2023 End: 05-27-2023 Evaluation and management of inpatient WASH OIL PUMP OPERATOR HELPER-C Candy Woodson WASH OIL PUMP OPERATOR HELPER Work Phone: [facility] Work Phone: Start: 03-21-2023 End: 03-22-2023 ambulatory CANDY WOODSON DEVELOPMENT SYSTEM EFFICIENCY MANAGER - PUBLIC SAFETY DISPATCHER Facility:[facility] Start: 03-21-2023 End: 03-21-2023 Patient encounter procedure CANDY WOODSON DEVELOPMENT SYSTEM EFFICIENCY MANAGER - PUBLIC SAFETY DISPATCHER [facility] Start: 03-13-2023 End: 03-14-2023 ambulatory CANDY WOODSON DEVELOPMENT SYSTEM EFFICIENCY MANAGER - PUBLIC SAFETY DISPATCHER Facility:[facility] Start: 11-15-2022 End: 11-16-2022 ambulatory CANDY WOODSON DEVELOPMENT SYSTEM EFFICIENCY MANAGER - PUBLIC SAFETY DISPATCHER Facility:[facility] Start: 11-14-2022 End: 11-14-[address] LAWANDA VÁSQUEZ MD Facility:[facility] Start: 06-28-2022 End: 06-28-2022 Patient encounter procedure CANDY WOODSON DEVELOPMENT SYSTEM EFFICIENCY MANAGER - PUBLIC SAFETY DISPATCHER [facility] Start: 05-04-2022 End: 05-04-2022 Patient encounter procedure CANDY WOODSON DEVELOPMENT SYSTEM EFFICIENCY MANAGER - PUBLIC SAFETY DISPATCHER [facility] Start: 04-22-2021 End: 04-22-2021 Patient encounter procedure CANDY WOODSON DEVELOPMENT SYSTEM EFFICIENCY MANAGER - PUBLIC SAFETY DISPATCHER [facility] Start: 08-11-2020 End: 08-11-2020 Discharged Recurring [facility] Start: 12-08-2016 End: 12-09-2016 Ambulatory PHY WO ID REFERRING Facility[facility] Procedures Date Procedure Procedure Detail Performing Clinician Start: 08-19-2024 Computerized axial tomography of lumbar spine with contrast Candy Woodson WASH OIL PUMP OPERATOR HELPER-C Work Phone: Start: 08-19-2024 Myelogram Candy To mpkins WASH OIL PUMP OPERATOR HELPER-C Work Phone: Start: 05-24-2024 Case Cancelled in me Day 1 MAURIZIO PENA MD Comment on above: auto-populated from documented surgical case Start: 06-14-2023 Viral antigen assay WASH OIL PUMP OPERATOR HELPER- C Candy Woodson WASH OIL PUMP OPERATOR HELPER Work Phone: Start: 06-13-2023 Nucleic acid assay WASH OIL PUMP OPERATOR HELPER-C Candy Woodson WASH OIL PUMP OPERATOR HELPER Work Phone: Start: 06-12-2023 Urine culture WASH OIL PUMP OPERATOR HELPER-C Rich frank Woodson WASH OIL PUMP OPERATOR HELPER Work Phone: Start: 06-06-2023 Viral antigen assay WASH OIL PUMP OPERATOR HELPER- C Candy Woodson WASH OIL PUMP OPERATOR HELPER Work Phone: Start: 05-25-2023 Viral antigen assay WASH OIL PUMP OPERATOR HELPER- C Candy Woodson WASH OIL PUMP OPERATOR HELPER Work Phone: Start: 05-05-2023 Lumbar spine structu re (body structure) MAURIZIO PENA MD Start: 05-02-2017 Bone density scan SAI GEMMA WOODSON DEVELOPMENT SYSTEM EFFICIENCY MANAGER - PUBLIC SAFETY DISPATCHER Start: 06-05-2011 Colonoscopy CANDY TO MPKINS DEVELOPMENT SYSTEM EFFICIENCY MANAGER - PUBLIC SAFETY DISPATCHER Comment on above: 2021 Start: 06-05-1985 Colposcopy CANDY TO MPKINS DEVELOPMENT SYSTEM EFFICIENCY MANAGER - PUBLIC SAFETY DISPATCHER Start: 06-05-1961 Appendectomy CANDY TO MPKINS DEVELOPMENT SYSTEM EFFICIENCY MANAGER - PUBLIC SAFETY DISPATCHER History of excision of lamina of lumbar vertebra for decompression of spinal cord Hx of decompressive lumbar laminectomy WASH OIL PUMP OPERATOR HELPER-C Candy Woodson WASH OIL PUMP OPERATOR HELPER Work Phone: Comment on above: With fusion Plan of Treatment Date Care Activity Detail Author Start: 06-15-2023 Blood chemistry [facility] Start: 06-14-2023 Patient discharge [facility] Start: 06-13-2023 Measurement of occult blood in stool specimen using immunoassay [facility] Start: 06-13-2023 Protein measurement [facility] Start: 06-12-2023 Following clinical pathway protocol [facility] Start: 06-12-2023 Assessment of risk of venous thromboembolism [facility] Start: 06-12-2023 Fall prevention [facility] Start: 06-12-2023 Incentive spirometry [facility] Start: 06-12-2023 Inhalation therapy procedure [facility] Start: 06-12-2023 Insertion of catheter into peripheral vein [facility] Start: 06-12-2023 Introduction of urinary catheter [facility] Start: 06-12-2023 Measuring intake and output [facility] Start: 06-12-2023 Oxygen therapy [facility] Start: 06-12-2023 Providing care according to standard [facility] Start: 06-12-2023 Provision of activity privileges [facility] Start: 06-12-2023 Referral to occupational therapist [facility] Start: 06-12-2023 Referral to service [facility] Start: 06-12-2023 Tobacco use cessation education [facility] Start: 06-12-2023 [facility] Start: 06-12-2023 Verification routine [facility] Start: 06-12-2023 Admission procedure [facility] Start: 06-12-2023 Hospital admission, emergency, from emergency room, medical nature [facility] Start: 06-12-2023 Clostridioides difficile DNA [Presence] in Unspecified specimen by VIKASH with probe detection [facility] Start: 06-12-2023 Enteric precautions [facility] Start: 06-12-2023 Referral to occupational therapist [facility] Start: 06-12-2023 Referral to service [facility] Start: 06-12-2023 [facility] Start: 06-12-2023 Bacteria identified in Urine by Culture Urine Culture [facility] Start: 06-12-2023 Respiratory Panel (PCR) Respiratory Panel (PCR) [facility] Start: 06-06-2023 Patient discharge [facility] Start: 06-06-2023 Development of care plan [facility] Start: 05-31-2023 [facility] Start: 05-31-2023 Removal of device [facility] Start: 05-28-2023 Developing a treatment plan [facility] Start: 05-28-2023 Development of care plan [facility] Start: 05-28-2023 End: 05-29-2023 [facility] Start: 05-27-2023 Recommendation to continue with treatment [facility] Start: 05-27-2023 Admission procedure [facility] Start: 05-27-2023 Measuring intake and output [facility] Start: 05-27-2023 Patient referral to dietitian [facility] Start: 05-27-2023 Referral to occupational therapist [facility] Start: 05-27-2023 Referral to service [facility] Start: 05-27-2023 Vital signs measurements [facility] Start: 05-27-2023 [facility] Start: 05-27-2023 Referral to service [facility] Start: 05-27-2023 Referral to occupational therapist [facility] Start: 05-27-2023 Provision of activity privileges [facility] Start: 05-26-2023 Patient discharge [facility] Start: 05-15-2023 Recommendation to continue with treatment [facility] Start: 05-15-2023 Referral to service [facility] Start: 05-15-2023 Urinary bladder training [facility] Start: 05-15-2023 Wound care [facility] Start: 05-15-2023 Admission procedure [facility] Start: 05-15-2023 Patient referral to dietitian [facility] Start: 05-15-2023 Referral to occupational therapist [facility] Start: 05-15-2023 Vital signs measurements [facility] Start: 05-15-2023 End: 05-15-2023 [facility] Gastrointestinal pat [facility] panel - Stool by VIKASH with probe detection [facility] Giardia lamblia Ag [Presence] in Stool by Immunoassay [facility] Lactoferrin [Presenc e] in Stool by Immunoassay [facility] Patient Education [facility] Work Phone: Patient referral [facility] Work Phone: Respiratory pathogen s DNA and RNA panel - Respiratory specimen by VIKASH with probe detection [facility] Immunizations Immunization Date Immunization Notes Care Provider Rogelio carreon 03-19-2024 influenza, high dose seasonal, preservative-free; Translations: [Fluad PF Prefilled Syringe ] CANDY WOODSON DEVELOPMENT SYSTEM EFFICIENCY MANAGER - PUBLIC SAFETY DISPATCHER [facility] 05-31-2023 Covid (Spikevax) WASH OIL PUMP OPERATOR HELPER-C Rolando Woodson WASH OIL PUMP OPERATOR HELPER Work Phone: [facility] 03-06-2023 influenza, injectabl e, quadrivalent, preservative free WASH OIL PUMP OPERATOR HELPER-C Candy Woodson WASH OIL PUMP OPERATOR HELPER Work Phone: [facility] 03-06-2023 influenza, high dose seasonal, preservative-free; Translations: [Fluad Quadrivalent PF ] CANDY WOODSON DEVELOPMENT SYSTEM EFFICIENCY MANAGER - PUBLIC SAFETY DISPATCHER [facility] 05-05-2022 Covid Pfizer Bivalen t Booster WASH OIL PUMP OPERATOR HELPER-C Candy Woodson WASH OIL PUMP OPERATOR HELPER Work Phone: [facility] 03-29-2022 influenza, high dose seasonal, preservative-free CANDY WOODSON DEVELOPMENT SYSTEM EFFICIENCY MANAGER - PUBLIC SAFETY DISPATCHER [facility] 05-11-2021 influenza, high dose seasonal, preservative-free; Translations: [Fluad Quadrivalent PF ] CANDY WOODSON DEVELOPMENT SYSTEM EFFICIENCY MANAGER - PUBLIC SAFETY DISPATCHER [facility] 04-08-2021 SARS-CoV-2 mRNA (tozinameran) vaccine CANDY WOODSON DEVELOPMENT SYSTEM EFFICIENCY MANAGER - PUBLIC SAFETY DISPATCHER [facility] Comment on above: Result Comment: 2020: [id number] 09-01-2020 Covid (Pfizer) [facility] Work Phone: 08-11-2020 Covid (Pfizer) [facility] Work Phone: Comment on above: Result Comment: 2020: [id number] 2020 influenza, injectabl e, quadrivalent, preservative free; Translations: [Fluarix PF Quadrivalent ] CANDY ELLISKINS DEVELOPMENT SYSTEM EFFICIENCY MANAGER - PUBLIC SAFETY DISPATCHER [facility] 04-25-2019 influenza, injectabl e, quadrivalent, preservative free; Translations: [Fluarix PF Quadrivalent ] CANDY WOODSON DEVELOPMENT SYSTEM EFFICIENCY MANAGER - PUBLIC SAFETY DISPATCHER [facility] Comment on above: Early/Late Reason: O ther: 08-21-2018 pneumococcal conjuga te vaccine, 13 valent CANDY WOODSON DEVELOPMENT SYSTEM EFFICIENCY MANAGER - PUBLIC SAFETY DISPATCHER [facility] 04-17-2018 influenza virus vacc ine, unspecified formulation CANDY WOODSON DEVELOPMENT SYSTEM EFFICIENCY MANAGER - PUBLIC SAFETY DISPATCHER [facility] 04-20-2017 influenza virus vacc ine, unspecified formulation CANDY WOODSON DEVELOPMENT SYSTEM EFFICIENCY MANAGER - PUBLIC SAFETY DISPATCHER [facility] 06-09-2016 zoster vaccine, live CANDY WOODSON DEVELOPMENT SYSTEM EFFICIENCY MANAGER - PUBLIC SAFETY DISPATCHER [facility] 05-10-2016 influenza virus vacc ine, unspecified formulation CANDY WOODSON DEVELOPMENT SYSTEM EFFICIENCY MANAGER - PUBLIC SAFETY DISPATCHER [facility] 05-10-2016 pneumococcal polysaccharide vaccine, 23 valent CANDY WOODSON DEVELOPMENT SYSTEM EFFICIENCY MANAGER - PUBLIC SAFETY DISPATCHER [facility] 08-29-2013 tetanus toxoid, redu montrell diphtheria toxoid, and acellular pertussis vaccine, adsorbed CANDY WOODSON [employer]ELOP[employer] SYSTEM EFFICIENCY MANAGER - PUBLIC SAFETY DISPATCHER [facility] Payers Date Payer Category Payer Private Health Insurance [id number] 2023 Unknown [id number] 2023 Self-pay [id number] 2021 Unknown [id number] 2019 Medicare [id number] 2018 Medicare [id number] 2004 Unknown [id number] 1955 Unknown [id number] 2.16.8 40.1.863314.3.579.2.627 1953 Unknown [id number] 2.16.8 40.1.805322.3.579.2.62 1953 Unknown [id number] 2.16.8 40.1.608197.3.579.2.627 1953 Unknown [id number] 2.16.8 40.1.330616.3.579.2.627 1953 Unknown [id number] 2.16.8 40.1.606918.3.579.2.627 1953 Unknown [id number] 2.16.8 40.1.913904.3.579.2.627 1953 Unknown [id number] 2.16.8 40.1.688759.3.579.2.62 1953 Unknown [id number] 2.16. 840.1.205037.3.579.2.62 1953 Unknown [id number] 2.16. 840.1.657373.3.579.2. 1953 Unknown [id number] 2.16. 840.1.714312.3.579.2.62 1953 Unknown [id number] 2.16.8 40.1.386828.3.579.2. 1955 Unknown [id number] 2.16.8 40.1.230451.3.579.2. 1953 Unknown [id number] 2.16.8 40.1.277761.3.579.2. 1953 Unknown [id number] 2.16.8 40.1.350593.3.579.2.62 1953 Unknown [id number] 2.16.8 40.1.197265.3.579.2. 1953 Unknown [id number] 2.16.8 40.1.707190.3.579.2.627 1953 Unknown [id number] 2.16.8 40.1.850297.3.579.2.627 Unknown [id number] Unknown [id number] 2.16.8 40.1.963494.3.579.2.462 Unknown [id number] 2.16.8 40.1.319116.3.579.2.462 Unknown [id number] 2.16.8 40.1.169784.3.579.2.462 Social History Date Type Detail Facility [facility] Work Phone: Start: 1955 Sex Assigned At Female W [facility] Work Phone: Start: 04-23-2019 End: 12-10-2024 Heavy tobacco smoker (finding) [facility] Comment on above: Daily smoke exposure Start: 05-27-2023 End: 06-12-2023 Tobacco smoking status NHIS Unknown if ever smoked [facility] Start: 11-28-2018 End: 08-28-2024 Sex Female (finding) [facility] Start: 06-12-2023 Tobacco smoking stat us NHIS Current some day smoker [facility] Goals Date Patient Goal Desired Activity /State Functional Status Date Assessment Result Facility 05-24-2024 Functional Status Up to chair [facility] 06-14-2023 Functional status Ambulates [facility] Work Phone: 06-07-2023 Functional status Up ad olga [facility] Work Phone: 06-06-2023 Functional status Tolerates Activity Well [facility] Work Phone: 05-27-2023 Functional status Ambulates [facility] Work Phone: 05-26-2023 Functional status Tolerates Activity Well [facility] Work Phone: Mental Status Date Assessment Result Facility 08-19-2024 Cognitive function Level Of Cons ciousness Awake;Alert;Appropriate [facility] Work Phone: 08-19-2024 Cognitive function Patient Orien tation Person;Place;Time [facility] Work Phone: 05-24-2024 Mental Status Orientation Oriented x 4 [facility] 06-13-2023 Cognitive function Voice/Name [facility] Work Phone: 06-07-2023 Cognitive function Voice/Name [facility] Work Phone: 06-03-2023 Cognitive function Appropriate;Cooperdeepthi gama [facility] Work Phone: 05-27-2023 Cognitive function Voice/Name [facility] Work Phone: Clinical Notes 05-29-2023 to 08-19-2024 Note Date & Type Note Facility 08-19-2024 Radiology Diagnostic study note [facility] Imaging Services [address] [place] [address] Spine Lumbar WITH Contrast MR#: [id number] Acct: [id number] Name: FILIBERTO VALDIVIA Rep #: [id number] : 1955 F 69 From: Doc Pitts MD PCP: Candy Woodson NP-C Status: REG CLI Study:Spine Lumbar WITH Contrast Date of Exam : 08/19/24 Exam# [id number] Ordering Dr: Danielle Hong PA-C PROCEDURE: SPINE LUMBAR WITH CONTRAST REASON FOR EXAM: BILATERAL LUMBAR RADICULOPATHY Prior multilevel laminectomy and fusion.. TECHNIQUE: Lumbar spine CT with intrathecal Isovue M 200 contrast. CONTRAST: Isovue M 200 VOLUME: 10mL One or more dose reduction techniques were used (e.g., Automated exposure control, adjustment of the mA and/or kV according to patient size, use of iterative reconstruction technique). RADIATION DOSE SUMMARY: CTDlvol: 15.14 mGy DLP: 531.77 mGycm COMPARISON: None. FINDINGS: Vertebrae: Normal lumbar vertebral body heights. No evidence of fracture. No spondylolysis. Alignment: Normal lumbar lordosis. L1-2: Marked degree of disc space narrowing. Prior laminectomy and intrapedicular screw fixation. There is evidence of facet joint osteoarthritis and hypertrophy with bilateral neural foraminal stenosis right greater than left and mild degree of central canal stenosis due to hypertrophy of the ligamentum flava and minimal retrolisthesis of L1 on L2. L2-3: Moderate degree of disc space narrowing. Prior laminectomy and fusion. No significant stenosis seen. L3-4: Mild degree of retrolisthesis of L3 on L4. Facet joint osteoarthritis andhypertrophy. Bilateral neural foraminal stenosis worse on the left side. L4-5: Moderate degree of disc space narrowing. Prior laminectomy and intrapedicular screw fixation. No significant stenosis seen. L5-S1: Marked degree of disc space narrowing. Spondylosis. Marked degree of bilateral neural foraminal and central canal stenosis. Sacrum: Unremarkable CT/Spine Lumbar WITH Contrast IMPRESSION: Multilevel laminectomy and fusion as described. Spinal stenosis at multiple levels worse at the L5-S1 level. Reading Location: [facility] CC: SCOOTER Woodson; HELIO Castillo ~ Jr. Java Developer: Signed [facility] 08-19-2024 Radiology Diagnostic study note [facility] Imaging Services [address] [place] [address] Lumbar Myelogram MR#: [id number] Acct: [id number] Name: FILIBERTO VALDIVIA Rep #: [id number] : 1955 F 69 From: Doc Pitts MD PCP: SCOOTER Newton Status: REG CLI Study:Lumbar Myelogram Date of Exam: Exam# [id number] Ordering Dr: Danielle Hong PA-C PROCEDURE: LUMBAR MYELOGRAM 08/19/2024 REASON FOR EXAM: LUMBAR BACK PAIN WITH RADICULOPAHTY Prior multilevel spinal fusion. TECHNIQUE: The procedure as well as the benefits and possible complications including infection and bleeding and headache were explained to the patient. Informed consent was obtained. The patient was in the prone position. The overlying skin was prepped and draped in usual sterile fashion. Following local anesthetic application and under direct fluoroscopic guidance, a lumbar puncturewas performed at the L2-L3 level. Clear CSF was not visualized. 10 cc of Isovue M [address] scan willfollow. Fluoroscopy time: 34 seconds 4 images were obtained. COMPARISON: None. FINDINGS: The patient is status post multilevel intrapedicular screw and urbano fixation. Noevidence of nerve root impingement or spinal stenosis seen at this examination. The patient tolerated the procedure well. CT scan will follow. RAD/Lumbar Myelogram IMPRESSION: Successful lumbar puncture and myelogram. The patient tolerated the procedure well. CT we will follow. Reading Location: [place] [address] CC: SCOOTER Woodson; HELIO Castillo ~ Jr. Java Developer: Signed [facility] 06-14-2024 Note Exam Date Time Procedure Performing Provider Status 06/14/24 11:44 AM XR Hip 2-3 Views Left CURT RAPHAEL MD; Auth (Verified) [id number] ORIGINAL EXAMINATION: 2 XRAY VIEWS OF THE LEFT HIP 06/14/2024 11:44 am COMPARISON: Right hip x-ray on 04/19/2024. HISTORY: ORDERING SYSTEM PROVIDED HISTORY: Reason for Exam: M16.12, pain lt sciatica radiating into hip thigh and knee FINDINGS: There is no fracture or dislocation of the left hip. The left hip joint space is mildly narrowed. There is moderate acetabular spur formation. Left femoral head is normal in contour there is no sign of avascular necrosis. Trochanteric region is remarkable for mild enthesopathic spur formation. IMPRESSION: Gcca-oc-zyqpdhen osteoarthritis of the left hip. Interpreted by: Curt Raphael MD Preliminary Report By: Curt Raphael MD Electronically signed By Curt Raphael MD Dictated Date: 06/15/2024 12:22:47 AM Prelim Date: 06/15/2024 12:24:31 AM Sign Date: 06/15/2024 12:24:31 AM Ordering Provider: MAURIZIO PENA [facility]12-26-2024 Note* Exam Date Time Procedure Performing Provider Status 05/30/24 9:57 AM US Breast Right Limited FELISA DE LEON MD; Auth (Verified) [id number] ORIGINAL FROM: [address] [address] PROCEDURE FOR: FILIBERTO CORMIER [address] [place] [address] Home: PID#: [id number] Exam#: [id number] : 1955 Age: 69 TO: CANDY WOODSON DEVELOPMENT SYSTEM EFFICIENCY MANAGER [facility] [address] [place] [address] Fax: NO FAX EXAMINATION: ULTRASOUND OF THE RIGHT BREAST 05/30/2024 8:46 am TECHNIQUE: Color flow and vides scale targeted ultrasound of the right breast were performed. Permanently stored images were reviewed. COMPARISON: Same day mammogram. HISTORY: ORDERING SYSTEM PROVIDED HISTORY: Reason for Exam: Follow up 6 months continued monitoring of right breast mass to ensure stability FINDINGS: Ultrasonographic evaluation of the right breast was performed. At the 5 o'clock position 6 cm from the nipple there is a 0.6 x 0.2 x 0.6 cm hypoechoic lesion that is wider than tall with a slightly lobular border. There are internal echogenicities. No internal vascularity is seen. There appears to be some posterior shadowing. Overall appearance is on the basis of a probably benign likely complex cyst, fibroadenoma, or possibly dilated duct. IMPRESSION: 0.6 cm probably benign likely complex cyst, fibroadenoma, or dilated duct as described above. A 6 month follow up right breast ultrasound is recommended to demonstrate stability. Tyrer Cuzick risk calculations, generated with the history provided, report this patient's 10 year risk and lifetime risk for developing breast cancer at 3.7% and 5.4%, respectively. Based on this assessment tool, if the patient's calculated lifetime risk is below 20%, then the patient is considered at average risk for developing breast cancer. If the patient's calculated lifetime risk is at or above 20%, then the patient is considered high risk for developing breast cancer and may be a candidate for supplemental breast MRI screening in addition to annual mammographic screening per the [place] [employer]. BIRADS: BI-RADS: 3: Probably Benign RECALL: 6 month follow-up RECALL TYPE: US LETTER SENT: Probably Benign BI-RADS 3 Interpreted by: Felisa De Leon MD Preliminary Report By: Felisa De Leon MD Electronically signed By Felisa De Leon MD Dictated Date: 05/30/2024 10:06:53 AM Prelim Date: 05/30/2024 10:09:20 AM Sign Date: 05/30/2024 10:09:20 AM Ordering Provider: CANDY WOODSON CLINICAL: PALPABLE LUMP RIGHT BREAST. Paginator: TRACEY INIGUEZ RT(R)(M) RDMS letter sent: Probably Benign BI-RADS 3 Ultrasound BI-RADS: 3 Probably benign [facility]12-26-2024 Note* Exam Date Time Procedure Performing Provider Status 05/30/24 9:04 AM MA Mammo Diagnostic Bilateral w/FELISA Cifuentes MD; Auth (Verified) [id number] ORIGINAL FROM: [facility] [address] [place] [address] PROCEDURE FOR: FILIBERTO Lane CORMIER [address] [place] [address] Home: PID#: [id number] Exam#: [id number] : 1955 Age: 69 TO: CANDY WOODSON DEVELOPMENT SYSTEM EFFICIENCY MANAGER PUBLIC SAFETY DISPATCHER [address] [place] [phone] Fax: NO FAX EXAMINATION: DIAGNOSTIC BILATERAL MAMMOGRAM WITH TOMOSYNTHESIS, 05/30/2024 8:46 am TECHNIQUE: Tomosynthesis was performed as part of the diagnostic bilateral mammogram. 2D standard and 3D tomosynthesis combination imaging performed. Current study was also evaluated with a Computer Aided Detection (CAD) system. COMPARISON: Prior mammography dated 06/28/2022, 11/17/2020, 10/25/2019. HISTORY: ORDERING SYSTEM PROVIDED HISTORY: Reason for Exam: Follow up 6 months continued monitoring of right breast mass to ensure stability FINDINGS: BREAST DENSITY: There are scattered areas of fibroglandular density. Stable scattered benign-appearing calcifications are seen of the breasts bilaterally. A 5 focal asymmetry within the left breast at the 9 o'clock position middle depth appears more prominent on CC view compared to priors however compresses into normal fibroglandular tissue on spot compression tomographic views. Spot-compression demographic views of the right breast at the area of palpable abnormality appears to demonstrate a persistent asymmetry on the right MLO spot compression views. The asymmetry measures 6 mm seen 6.4 cm from the nipple. IMPRESSION: Persistent 6 mm asymmetry of the right breast corresponding with the patient's palpable abnormality. An ultrasound will be performed today and will be reported separately. Malachimarce Marsmanuelck risk calculations, generated with the history provided, report this patient's 10 year risk and lifetime risk for developing breast cancer at 3.7% and 5.4%, respectively. Based on this assessment tool, if the patient's calculated lifetime risk is below 20%, then the patient is considered at average risk for developing breast cancer. If the patient's calculated lifetime risk is at or above 20%, then the patient is considered high risk for developing breast cancer and may be a candidate for supplemental breast MRI screening in addition to annual mammographic screening per the [place] [employer]. BIRADS: BI-RADS: 0: Incomplete: Need Additional Imaging Evaluation RECALL: immediate RECALL TYPE: US LETTER SENT: Abnormal-Needs additional work up BI-RADS 0 Interpreted by: Felisa De Leon MD Preliminary Report By: Felisa De Leon MD Electronically signed By Felisa De Leon MD Dictated Date: 05/30/2024 9:15:15 AM Prelim Date: 05/30/2024 10:06:40 AM Sign Date: 05/30/2024 10:06:40 AM Ordering Provider: CANDY WOODSON CLINICAL: PALPABLE LUMP RIGHT BREAST. Paginator: MC YAÑEZ RT(R)(M)(CT) letter sent: Abnormal-Needs additional work up BI-RADS 0 Mammogram BI-RADS: 0 Indeterminate [facility]11-15-2024 Note ORIGINAL EXAMINATION: AP and lateral 3 XRAY VIEWS OF THE LUMBAR SPINE04/19/2024 10:31 am COMPARISON: 11/17/2016 HISTORY: ORDERING SYSTEM PROVIDED HISTORY: Reason for Exam: M96.1, FINDINGS: There is interval surgery in the thoraco lumbar spine. Multilevel laminectomy is present in the lower lumbar region and there are pedicle screws extending through the entire lumbar spine to the S1 level and also in to the T11 and T12 vertebra. There may be some lucency around the S1 screws on the AP view. No other hardware complication is seen. Disc space narrowing and endplate spurring at L5-S1 with other degenerative changes. No vertebral compression deformity or significant listhesis. IMPRESSION: Degenerative and postop changes. Question mild loosening of the S1 pedicle screws. Interpreted by: Ayo Bajwa MD Preliminary Report By: Ayo Bajwa MD Electronically signed By Ayo Bajwa MD Dictated Date: 04/19/2024 2:51:11 PM Prelim Date: 04/19/2024 2:52:45 PM Sign Date: 04/19/2024 2:52:45 PM Ordering Provider: [facility]11-15-2024 Note ORIGINAL EXAMINATION: 2 XRAY VIEWS OF THE RIGHT HIP 04/19/2024 10:30 am COMPARISON: None. 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 Acetabular over coverage versus remodeling at the superolateral joint space. There is some increased heterogeneous sclerosis of the femoral head which may be related to subchondral sclerosis and cystic change however underlying avascular necrosis cannot be excluded. No acute fracture. Degenerative changes of the partially visualized SI joint. Interpreted by: Stephenie Gómez Preliminary Report By: Stephenie Gómez Electronically signed By Stephenie Gómez Dictated Date: 04/19/2024 2:45:07 PM Prelim Date: 04/19/2024 2:46:28 PM Sign Date: 04/19/2024 2:46:28 PM Ordering Provider: [facility]01-09-2024 Progress note Author Adán Khalil [facility] June 13, 2023 5:05pm Note Date/Time June 13, 2023 10 :26am [facility] Medical Records Department [address] [place] [address] Progress Note - Hospitalist 06/13/23 1025 MR#: [id number] Acct: [id number] Name: FILIBERTO VALDIVIA Rep #: [id number] : 1955 68 From: Adán Radford PCP: SCOOTER Newton Sta tus:ADM TESS Location: [address] Reason for Visit Reason for Visit: Diagnoses Diarrhea, unspecified (06/12/23) Objective Data Objective Data Vital Signs: Vital Signs Temp Pulse Resp BP Pulse Ox O2 Del Method 98.7 F 82 18 141/81 H 99 Room Air 01/09/24 09:10 06/13/23 09:10 06/13/23 09:10 06/13/23 09:10 06/13/23 09:10 06/13/23 09:10 Oxygen Delivery Method Room Air Weight: 175 lb 14.862 oz Body Mass Index (BMI) 26.0 Intake & Output: Intake and Output for Last 24 Hours 06/11/23 06/12/23 06/13/23 23:59 23:59 23:59 Intake Total 1000 / 1000 Balance 1000 / 1000 Lab / Micro Data 06/13/23 06:59 06/13/23 06:59 Labs: Laboratory Results - last 24 hr 06/12/23 12:30: WBC 6.8, RBC 4.19 L, Hgb 12.0, Hct 37.3, MCV 89.0, MCH 28.6, MCHC 32.2, RDW Std Deviation 41.6, RDW Coeff of Lizzy 12.9, Plt Count 404, MPV 9.0, Immature Gran % (Auto) 0.400, Neut % (Auto) 78.9 H, Lymph % (Auto) 12.3 L, [place] % (Auto) 7.7, Eos % (Auto) 0.4, Baso % (Auto) 0.3, Absolute Neuts (auto) 5.3, Absolute Lymphs (auto) 0.83, Nucleated RBC % 0, Sodium 138, Potassium 3.7, Chloride 108 H, Carbon Dioxide 25.0, Anion Gap 5, BUN 24 H, Creatinine 1.02, EstGFR (MDRD) Af Amer 69, Est GFR (MDRD) Non-Af 57 L, BUN/Creatinine Ratio 23.5 H, Glucose 117 H, Calcium 9.6, Phosphorus 3.8, Magnesium 2.3 06/12/23 14:05: Urine Color Yellow, Urine Clarity Sl. Cloudy, Urine pH 5.0, Ur Specific [place] 1.020, Urine Protein 100 H, Urine Glucose (UA) Normal, Urine Ketones 5 H, Urine Occult Blood 10 H, Urine Nitrite Negative, Urine Bilirubin Negative, Urine Urobilinogen 1 H, Ur Leukocyte Esterase 100 H, Urine RBC 0-5 SEEN, Urine WBC 10- 25 SEEN, Ur Squamous Epith Cells 10-25 SEEN, Urine Bacteria 2+, Hyaline Casts 0-5 SEEN, Urine Mucus 0 SEEN 06/12/23 19:19: Procalcitonin 0.04 06/13/23 06:59: WBC 6.4, RBC 3.52 L, Hgb 10.1 L, Hct 31.5 L, MCV 89.5, MCH 28.7,MCHC 32.1, RDW Std Deviation 42.4, RDW Coeff of Lizzy 13.0, Plt Count 348, MPV 9.3, Immature Gran % (Auto) 0.500, Neut % (Auto) 64.9, Lymph % (Auto) 21.1, [place]% (Auto) 10.3 H, Eos % (Auto) 2.7, Baso % (Auto) 0.5, Absolute Neuts (auto) 4.2,Absolute Lymphs (auto) 1.35, Nucleated RBC % 0, Sodium 141, Potassium 3.7, Chloride 112 H, Carbon Dioxide 23.0, Anion Gap 6, BUN 15, Creatinine 0.63, EstimCreat Clear Calc 54.71, Est GFR (MDRD) Af Amer 119, Est GFR (MDRD) Non-Af 99, BUN/Creatinine Ratio 23.7 H, Glucose 90, Calcium 8.6, Total Bilirubin 0.40, AST 14 L, ALT 15, Alkaline Phosphatase 96, Total Protein 6.2 L, Albumin 2.7 L, Globulin 3.5, Albumin/Globulin Ratio 0.8 L Micro: Microbiology 06/12/23 18:48 Mucosa - Nasopharyngeal Respiratory Panel (PCR) - Final Physical Exam Narrative Seen and examined. Patient complained of diarrhea for 3 days. Patient's latest mostly liquid with some fecal content. Did not see any blood or mucus. Denies any change in the diet. Patient stool-based that hard to walk or move. Denies abdominal pain. Physical exam General: Alert, Oriented x3, Cooperative HEENT: Atraumatic, PERRLA, EOMI, Normocephalic Oral: No Gingival or Mucosal Lesions/ Ulcerations Neck: Supple, No JVD, Negative Carotid Bruits Lungs: Air entry diminished in bilateral lung bases. No crepitation/rhonchi Cardiovascular: Regular rate, Regular Rhythm, Normal S1, Normal S2, No murmurs Abdomen: Bowel Sounds Present, Soft, Non Tender, Non-Distended : No renal angle tenderness. No suprapubic tenderness. Extremities: No edema, Capillary Refill Less than 3 Seconds Skin: No rashes, No breakdown Musculoskeletal: No Tenderness to Palpation of Joints or Extremities Neurological: Cranial nerves II-XII grossly intact, DTR 2+/4. No acute focal neurological deficit. Psych/Mental Status: Normal Affect, Appropriate. Assessment & Plan Assessment/Plan (1) Diarrhea: PLAN: Plan The patient is a 68 y/o F with multiple comorbidities was admitted for multiple episodes of diarrhea feeling of generalized weakness for last 3 days. Denies abdominal pain. Not on antibiotics. She has chronic lower back pain with recent back surgery of hemilaminectomy in May 2023 by [facility]. #1. 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 Stool for enteric pathogen is negative. Stool for C. difficile negative negative for C. difficilePCR. Her diarrhea is improving and solidifying. She is unclear but said she might have IBS.Procalcitonin negative. Abdominal exam is benign with no tenderness/distention or guarding or rigidity. #2. Diarrhea as mentioned above, improving. #3. Chronic lumbar back pain with recent history of hemilaminectomy: Patient recently had back surgery in May 2023 outside and was on rehab at TCU and was discharged home on June 07, 2023. Usually gets around on wheeled walker but she felt too weak to get up. Encourage positional changes, PT/OT/case management consulted for discharge planning, maintain on fall precautions, continue gabapentin as well as patient home hydrocodone regimen. #4. Anxiety and depression: We will continue patient home venlafaxine regimen. #5. Tobacco Abuse: Encouraged cessation, inpatient consultation per RT, NR if desired. #6. Hypertension: Continue home regimen including losartan, PRN hydralazine. #7. Hyperlipidemia: We will continue patient on statin therapy. #8. DVT prophylaxis: Lovenox. #9. CODE status: Patient HCPOA is Beau Leach her friend and living will is currently in place. Discussed CODE status at length including difference betweenFULL code, DNR-CCA and DNR-CC status. Following discussions about the differences in these status, requested Full Code status. Charges/Coding Visit Charges Inpatient E&M: 22101 Subs Hosp L2 06/13/23 1916 <Electronically signed by Adán Khalil MD> Cosigner Signature (if applicable): CC: ~ Signed [facility] Work Phone: 1(520) 509-816701-09-2024 Discharge summary Author Ash Geller [facility] June 13, 2023 3:19pm Note Date/Time June 12, 2023 12 :29pm [facility] Medical Records Department [address] [place] [address] Emergency Department Summary 06/12/23 MR#: [id number] Acct: [id number] Name: FILIBERTO VALDIVIA Rep #: [id number] : 1955 68 From: Ash Cartagena PCP: SCOOTER Newton tus:ADM TESS Location: [place] [address]1 HPI <SCOOTER Valdes - Last Filed: 06/12/23 18:04> History of Present Illness Chief Complaint: Diarrhea Narrative Narrative: Patient is a 68-year-old female with history of chronic back pain who recently had back surgery in early May 2023, she was at the [facility]CU to receive PT/OT, and returned home on June 07, 2023. Patient has been doing well at home, she does live alone and gets around by a wheeled walker. Patient states that over the last 3 days she has been having multiple episodes of diarrhea and feeling ofincreased weakness. Patient denies any fever or chills. Patient denies any significant pain. Patient has not been on any antibiotics. She is currently ongabapentin and [place]. She states that she has 3-4 loose bowel movements and then will have a solid bowel movement throughout the day. She called her PCP who referred her to the emergency department for fluids, stool cultures as well as some laboratory values. She does state to have some dark stool however this could be related to the Pepto-Bismol that she did try. She denies any sick contacts. PFSH <SCOOTER Valdes - Last Filed: 06/12/23 18:04> PFS Medical History Basal cell carcinoma COVID Endometriosis GERD (gastroesophageal reflux disease) IBS (irritable bowel syndrome) Migraine Scoliosis Smoker Home Medications atorvastatin 40 mg tablet 40 mg PO QHS CHOLESTEROL 05/15/23 [History Last Taken Unknown] ergocalciferol (vitamin D2) 1,250 mcg (50,000 unit) capsule 50,000 unit PO QMONTH SUPPLEMENT 05/15/23 [History Last Taken 05/09/23] multivitamin 1 tab PO DAILY HEALTH MAINTENACE 05/15/23 [History Last Taken Unknown] venlafaxine 75 mg capsule,extended release 24 hr (Effexor XR) 75 mg PO DAILY DEPRESSION 05/15/23 [History Last Taken Unknown] losartan 100 mg tablet (Cozaar) 100 mg PO DAILY BLOOD PRESSURE #1 TAB 05/26/23 [Rx Last Taken Unknown] sennosides 8.6 mg-docusate sodium 50 mg tablet (Stool Softener-Stimulant Laxative) 2 tab PO BID STOOL SOFTENER #120 tabs 06/06/23 [Rx Last Taken Unknown] cyclobenzaprine 5 mg tablet 5 mg PO TID PRN MUSCLE SPASMS 06/12/23 [History Last Taken Unknown] gabapentin 100 mg capsule 200 mg PO BID NERVE PAIN 06/12/23 [History Last Taken Unknown] gabapentin 100 mg capsule 300 mg PO QHS NERVE PAIN 06/12/23 [History Last Taken Unknown] hydrocodone-acetaminophen 5-325mg 5mg-325mg 1 - 2 tab PO Q6H PRN PAIN 06/12/23 [History Last Taken Unknown] magnesium hydroxide 400 mg/5 mL oral suspension 30 ml PO X1 PRN CONSTIPATION 06/12/23 [History Last Taken Unknown] Allergy/AdvReac Type Severity Reaction Status Date / Time No Known Allergies Allergy Verified 06/12/23 12:04 Family History Father Heart failure Surgical History Cataract extraction status History of appendectomy History of tonsillectomy S/P ORIF (open reduction internal fixation) fracture Social History household members: none current occupational status: retired current occupation: Worked at [employer] pets and animals: Yes pets and animals: cat(s) and dog(s) Smoking Status: Current some day smoker tobacco type: cigarettes quit status: considering quitting alcohol intake: current alcohol intake frequency: 0-2 drinks per day Alcohol type: beer substance use type: does not use do you feel safe at home: Yes ROS <SCOOTER Valdes - Last Filed: 06/12/23 18:04> ROS ED ROS Narrative Constitutional: Negative for fever, chills, weight loss. Positive for weakness Eyes: Negative for vision loss, vision change, double vision ENT: Negative for any sore throat, ear pain, congestion Cardiovascular: Negative for any chest pain, tightness, palpitations Respiratory: Negative for any cough, sputum production, hemoptysis, dyspnea, dyspnea on exertion, orthopnea Gastrointestinal: Negative for any nausea, vomiting, constipation, blood in stool, blood in vomit. Positive for abdominal cramping, positive for diarrhea : Negative for any urinary frequency, dysuria, retention, blood in urine Muscle skeletal: Negative for any myalgias, arthralgias, neck pain, back pain Neurological: Negative for any headache, syncope, paresthesias, dizziness Skin: Negative for any rashes, lumps, itching, abrasions, lacerations Psychiatric: Negative for any depression, anxiety, stress, suicidal ideation, homicidal ideation Hematologic: Negative for any easy bruising, excessive bruising, easy bleeding Allergies: Negative for any eczema, hives, rash EXAM <SCOOTER Valdes - Last Filed: 06/12/23 18:04> Physical Exam Narrative Exam Narrative: Vital signs reviewed. HEET: Head normocephalic atraumatic, TMs clear bilaterally. Posterior pharynx is clear, moist mucous membranes. Nares clear bilaterally. Neck: Supple with no lymphadenopathy or tenderness. No signs of meningismus. Cardiac: Regular rate and rhythm no murmurs gallops or rubs, equal peripheral pulses bilaterally. Respiratory: Lungs clear to auscultation bilaterally. No chest tenderness. Abdomen: Soft, nontender, nondistended. No abdominal bruit or pulsatile masses. No hepatosplenomegaly. Patient has active bowel sounds in all quadrants. Extremities: No peripheral edema, no signs of gross trauma or deformity. Activefull range of motion of all extremities. Neuro: Cranial nerves II through XII intact, no focal neurological deficits. Skin: Clean dry and intact with no rash, purpura, petechiae, vesicles or pustules. Backs/flank: No CVA tenderness, no midline spinal tenderness, no deformity. Psych: Normal mood and affect. No SI, HI or acute psychosis. Const Vital Signs: 06/12/23 12:04 Temperature 96.6 F L Temperature Source Temporal Pulse Rate 108 H Respiratory Rate 20 H Blood Pressure 164/115 H Blood Pressure Mean 131 Pulse Ox 94 Oxygen Delivery Method Room Air Positive well nourished and well developed General Appearance ED: well developed <Dr. Ash Geller, DO - Last Filed: 06/12/23 15:35> Physical Exam Const Vital Signs: 06/12/23 12:04 Temperature 96.6 F L Temperature Source Temporal Pulse Rate 108 H Respiratory Rate 20 H Blood Pressure 164/115 H Blood Pressure Mean 131 Pulse Ox 94 Oxygen Delivery Method Room Air MDM <SCOOTER Valdes - Last Filed: 06/12/23 18:04> MDM Lab Data Labs: Laboratory Results - last 24 hr 06/12/23 06/12/23 12:30 14:05 WBC 6.8 RBC 4.19 L Hgb 12.0 Hct 37.3 MCV 89.0 MCH 28.6 MCHC 32.2 RDW Std Deviation 41.6 RDW Coeff of Lizzy 12.9 Plt Count 404 MPV 9.0 Immature Gran % (Auto) 0.400 Neut % (Auto) 78.9 H Lymph % (Auto) 12.3 L [place] % (Auto) 7.7 Eos % (Auto) 0.4 Baso % (Auto) 0.3 Absolute Neuts (auto) 5.3 Absolute Lymphs (auto) 0.83 Nucleated RBC % 0 Sodium 138 Potassium 3.7 Chloride 108 H Carbon Dioxide 25.0 Anion Gap 5 BUN 24 H Creatinine 1.02 Est GFR (MDRD) Af Amer 69 Est GFR (MDRD) Non-Af 57 L BUN/Creatinine Ratio 23.5 H Glucose 117 H Calcium 9.6 Urine Color Yellow Urine Clarity Sl. Cloudy Urine pH 5.0 Ur Specific [place] 1.020 Urine Protein 100 H Urine Glucose (UA) Normal Urine Ketones 5 H Urine Occult Blood 10 H Urine Nitrite Negative Urine Bilirubin Negative Urine Urobilinogen 1 H Ur Leukocyte Esterase 100 H Urine RBC 0-5 SEEN Urine WBC 10-25 SEEN Ur Squamous Epith Cells 10-25 SEEN Urine Bacteria 2+ Hyaline Casts 0-5 SEEN Urine Mucus 0 SEEN Treatment and Re-Evaluation :: Patient appears generally well, patient appears nontoxic, vital signs are stable. Presenting to the emergency department for complaints of abdominal cramping, diarrhea, generalized weakness. Differential diagnosis includes stoolpathogen, viral syndromes, constipation secondary to chronic narcotic use. Physical examination yielded no red flag signs. Abdomen was soft nontender. Patient will be given IV fluids, Zofran, as well as basic laboratory values. I will order stool studies. I have low suspicion for any C. difficile as the patient has not had any antibiotics recently, patient also does not exhibit any infectious-like symptoms. Patient's laboratory values showed normal CBC, patient's chemistries were unremarkable. Patient was able to provide a stool sample. Urinalysis shows contamination however did show 2+ bacteria, 10-25 squamous cells, no nitrites, this will be sent for culture. At this time, I do not believe the patient requires any admission. However patient states that she is too weak to go home,and she would like to be evaluated further at rehab. I did have the patient be seen by social work, she did have a PT/OT evaluation. Per PT and OT, she did well and is stable for discharge. However patient is still uncomfortable going home secondary to living alone. There could be some possible depression secondary to the patient's loneliness. The social work will now go over self-pay options with the patient. [facility] [place] [facility] unable to have a bed until tomorrow. I willwithout call for admission for observation for the patient. The patient feels unsafe going home and feels that she needs rehab. <Dr. Ash Geller, DO - Last Filed: 06/12/23 15:35> [facility] Narrative Medical decision making narrative: I have personally performed a face to face assessment of the patient and have reviewed the ELISEO Note. I performed a substantive portion of the visit including all aspects of the following. My [place] findings include: History: Patient presents with diarrhea that has been constant for the past 3 days. Patient states it came on gradually. Patient describes it as loose and watery. Patient states that intermittently she will have a solid bowel movement. Patient denies any melena or hematochezia. Patient denies any vomiting. Patient admits to decreased appetite. Patient also admits to some subjective chills and some general weakness. Patient states nothing makes her symptoms any better or worse. Exam: Vital signs are stable except for mild tachycardia of 108. Patient is in no acute distress. Patient is afebrile. Oral mucosa is pink and moist. Neck is supple. Trachea is midline. There is no JVD. Heart was regular rate and rhythm. Lungs are clear and equal bilaterally. Abdomen is soft. Bowel sounds are normal. There is some mild left-sided tenderness. There is no rebound or guarding noted. Cranial nerves II through XII are intact. There are no focal motor or sensory deficits noted. Medical Decision Making: Differential diagnosis includes gastroenteritis, colitis, viral illness, dehydration, and electrolyte abnormality. CBC will be obtained to assess for leukocytosis and anemia. Basic metabolic profile will beobtained to assess for electrolyte abnormality and renal function. Urinalysis will be obtained to assess for urinary tract infection and hematuria. Stool will be sent for enteric pathogens. CBC was reviewed and was within normal limits. Basic metabolic profile was reviewed and was essentially within normal limits. Urinalysis was reviewed. There is a contaminated specimen with 10-25 epithelial cells and 10-25 white blood cells. There is 2+ bacteria. Urine culture will be ordered. Patient does not feel she is safe to go home. mental health social worker was in to evaluate the patient and states that the patient does qualify for rehab. She contacted the TCU. They stated that patient would need a PT/OT evaluation before they can accept her into their unit. mental health social worker is checking to see if this can be done in the emergency department or if she will need to be a 23-hour observation to have this done before she can go to the TCU. Patient and family understand and are agreeable with the plan. All questions were answered. Lab Data Labs: Laboratory Results - last 24 hr 06/12/23 06/12/23 12:30 14:05 WBC 6.8 RBC 4.19 L Hgb 12.0 Hct 37.3 MCV 89.0 MCH 28.6 MCHC 32.2 RDW Std Deviation 41.6 RDW Coeff of Lizzy 12.9 Plt Count 404 MPV 9.0 Immature Gran % (Auto) 0.400 Neut % (Auto) 78.9 H Lymph % (Auto) 12.3 L [place] % (Auto) 7.7 Eos % (Auto) 0.4 Baso % (Auto) 0.3 Absolute Neuts (auto) 5.3 Absolute Lymphs (auto) 0.83 Nucleated RBC % 0 Sodium 138 Potassium 3.7 Chloride 108 H Carbon Dioxide 25.0 Anion Gap 5 BUN 24 H Creatinine 1.02 Est GFR (MDRD) Af Amer 69 Est GFR (MDRD) Non-Af 57 L BUN/Creatinine Ratio 23.5 H Glucose 117 H Calcium 9.6 Urine Color Yellow Urine Clarity Sl. Cloudy Urine pH 5.0 Ur Specific [place] 1.020 Urine Protein 100 H Urine Glucose (UA) Normal Urine Ketones 5 H Urine Occult Blood 10 H Urine Nitrite Negative Urine Bilirubin Negative Urine Urobilinogen 1 H Ur Leukocyte Esterase 100 H Urine RBC 0-5 SEEN Urine WBC 10-25 SEEN Ur Squamous Epith Cells 10-25 SEEN Urine Bacteria 2+ Hyaline Casts 0-5 SEEN Urine Mucus 0 SEEN Discharge Plan Dx/Rx/DC Orders Clinical Impression: Adult failure to thrive, Debility, Hx of decompressive lumbar laminectomy, Diarrhea Disposition Disposition: [facility] What to do if you have Problems For any increased pain, shortness of breath, bleeding, nausea or vomiting, chestpain, or any unexpected problems, contact your Primary Care Provider. Call [facility] ([phone]) or report to the closest Emergency Room. Call 911 if necessary. 06/13/23 1519 <Electronically signed by Ash Geller DO> Cosigner Signature (if applicable): 06/12/23 1804 <Electronically signed by Jabari HELMS> CC: SCOOTER Woodson ~ Signed [facility] Work Phone: 1(520) 930-967101-08-2024 History and physical note Author Jeri Burns [facility] June 12, 2023 7:18pm Note Date/Time June 12, 2023 5: 53pm [facility] Medical Records Department [address] [place] [address] H&P Exam - Hospitalist 06/12/23 1753 MR#: [id number] Acct: [id number] Name: FILIBERTO VALDIVIA Rep #: [id number] : 1955 68 From: Jeri Burns MD PCP: SCOOTER Newton Sta tus:REG ER Location: ED HPI - General General Date of Admission: 06/12/23 Date of Service: 06/12/23 Chief Complaint: Fatigue, weakness, loose stools. HPI Narrative The patient is a 68 y/o F w/ PMHx: GERD, Chronic migraines, Hx COVID, Tobacco use, HTN, HLD, Anxiety and Depression, Chronic back pain with bilateral lower extremity radiculopathy with recent back surgery specifically hemilaminectomy per record report 05/2023 with transition following to TCU with return to home 06/07/2023 initially doing well at home however she lives alone and does use a wheeled walker and over the last 3 days she has been having loose stools with increased weakness and debility not on any recent antibiotics with reportedly 3-4 loose bowel movements and then a solid bowel movement prompting call to her PCP who referred to the ED for IV fluids and stool cultures. She does report taking Pepto-Bismol and occasionally has had dark stools following this. She denies any recent ill contacts. She notes currently no diarrhea since this AM. She notes also pain in the lumbar spine dull aching, sharp with activity attempts, rated currently 5/10 in severity. She denies any recent fever, chills,URI symptoms, abdominal pain, nausea or emesis associated. Workup in the ED included T96.6, heart rate 108, BP 164/115, respiratory rate 20, 94% on room air, CBC with WBC 6.8, hemoglobin 12, platelet 404 without marked shift, BMP with chloride 108, BUN/creatinine 24/1.02, glucose 117, urinalysis noted to be cloudywith specific gravity 1.020, protein 100, ketone 5, occult blood 10, negative nitrite, leukocyte Estrace 100 with urine WBCs 10-25 however is a poor sample with squamous epithelial cells noted to be also 10-25 with 2+ urine bacteria. In the ED patient ministered 1 L normal saline, Zofran 4 mg IV x 1 as well as hydrocodone 1 tablet x 1. PFSH Medical History Anxiety Basal cell carcinoma Chronic back pain COVID Endometriosis Essential hypertension GERD (gastroesophageal reflux disease) IBS (irritable bowel syndrome) Migraine Mixed hyperlipidemia Scoliosis Smoker Smokes cigarettes Vitamin D deficiency Home Medications atorvastatin 40 mg tablet 40 mg PO QHS CHOLESTEROL 05/15/23 [History Last Taken Unknown] ergocalciferol (vitamin D2) 1,250 mcg (50,000 unit) capsule 50,000 unit PO QMONTH SUPPLEMENT 05/15/23 [History Last Taken 05/09/23] multivitamin 1 tab PO DAILY HEALTH MAINTENACE 05/15/23 [History Last Taken Unknown] venlafaxine 75 mg capsule,extended release 24 hr (Effexor XR) 75 mg PO DAILY DEPRESSION 05/15/23 [History Last Taken Unknown] losartan 100 mg tablet (Cozaar) 100 mg PO DAILY BLOOD PRESSURE #1 TAB 05/26/23 [Rx Last Taken Unknown] sennosides 8.6 mg-docusate sodium 50 mg tablet (Stool Softener-Stimulant Laxative) 2 tab PO BID STOOL SOFTENER #120 tabs 06/06/23 [Rx Last Taken Unknown] cyclobenzaprine 5 mg tablet 5 mg PO TID PRN MUSCLE SPASMS 06/12/23 [History Last Taken Unknown] gabapentin 100 mg capsule 200 mg PO BID NERVE PAIN 06/12/23 [History Last Taken Unknown] gabapentin 100 mg capsule 300 mg PO QHS NERVE PAIN 06/12/23 [History Last Taken Unknown] hydrocodone-acetaminophen 5-325mg 5mg-325mg 1 - 2 tab PO Q6H PRN PAIN 06/12/23 [History Last Taken Unknown] magnesium hydroxide 400 mg/5 mL oral suspension 30 ml PO X1 PRN CONSTIPATION 06/12/23 [History Last Taken Unknown] Allergy/AdvReac Type Severity Reaction Status Date / Time No Known Allergies Allergy Verified 06/12/23 12:04 Family History Father Heart failure Mother Kidney disease Alzheimer disease Surgical History (Updated 06/12/23 @ 19:[address] Jeri Burns MD) Cataract extraction status History of appendectomy History of hemilaminectomy History of tonsillectomy S/P ORIF (open reduction internal fixation) fracture Social History (Updated 06/12/23 @ 19:[address] Jeri Burns MD) household members: none current occupational status: retired current occupation: Worked at [employer] pets and animals: Yes pets and animals: cat(s) and dog(s) Smoking Status: Current some day smoker tobacco type: cigarettes quit status: considering quitting alcohol intake: current alcohol intake frequency: 0-2 drinks per day Alcohol type: beer substance use type: does not use do you feel safe at home: Yes ROS RUMA Narrative Admission Review of Systems: CONSTITUTIONAL: No weight loss, fever, chills, + weakness or fatigue. HEENT: Eyes: No visual loss, blurred vision, double vision or yellow sclerae. Ears, Nose, Throat: No hearing loss, sneezing, congestion, runny nose or sore throat. SKIN: No rash or itching, lesions, wounds. CARDIOVASCULAR: No chest pain, chest pressure or chest discomfort, palpitations,edema, orthopnea, syncopal events. RESPIRATORY: No shortness of breath, cough or sputum, wheezing, hemoptysis. GASTROINTESTINAL: + Diarrhea. No anorexia, nausea, vomiting, abdominal pain, melena, BRBPR. GENITOURINARY: No dysuria, frequency, urgency or retention. NEUROLOGICAL: No headache, dizziness, syncope, paralysis, ataxia, numbness or tingling in the extremities, focal weakness, change in bowel or bladder control, seizure. MUSCULOSKELETAL: + muscle, back pain, joint pain or stiffness. HEMATOLOGIC: No anemia, bleeding or bruising. LYMPHATICS: No enlarged nodes. No history of splenectomy. PSYCHIATRIC: + history of depression or anxiety. ENDOCRINOLOGIC: No reports of sweating, cold or heat intolerance. No polyuria orpolydipsia. ALLERGIES: No history of asthma, hives, eczema or rhinitis. Vital Signs Vital Signs Vital Signs: 06/12/23 12:04 Temperature 96.6 F L Temperature Source Temporal Pulse Rate 108 H Respiratory Rate 20 H Blood Pressure 164/115 H Blood Pressure Mean 131 Pulse Ox 94 Oxygen Delivery Method Room Air Weight Weight: 182 lb 8.684 oz Body Mass Index (BMI) 26.2 Physical Exam Narrative Physical Examination: General: Awake, alert, oriented x 3 and cooperative, laying in the ED bed, fatigued appearing, notes back discomfort currently 5/10 in severity. Skin: Normal color, normal turgor, no icterus, no cyanosis. HEENT: AT/NC, EOMI, PERRLA, mildly dry MM, no carotid bruits or JVD noted. Lungs: CTA bilaterally, moderate effort, mild decrease BL bases, no rales, ronchi or wheezing. Heart: Mildly tachycardic with regular rhythm; no gallop, rub audible. Abdomen: Soft, NTTP, ND, hyperactive BS, no HSM. Extremities: No cyanosis, clubbing, or edema. Neurological: Patient awake, alert, oriented as noted, cognitive function intact; pupils equally reactive to light and accommodation, cranial nerves grossly normal, moving all 4 extremities, no focal deficits, strength moderatelyto severely global decrease secondary to acute presentation complaints compounded by recent lumbar surgery. Psychiatric: Affect appears flat, fatigued, no acute evidence of depressive or anxiety feelings but does have underlying history. Results Lab / Micro Data 06/12/23 12:30 06/12/23 12:30 Labs: Laboratory Results - last 24 hr 06/12/23 12:30: WBC 6.8, RBC 4.19 L, Hgb 12.0, Hct 37.3, MCV 89.0, MCH 28.6, MCHC 32.2, RDW Std Deviation 41.6, RDW Coeff of Lizzy 12.9, Plt Count 404, MPV 9.0, Immature Gran % (Auto) 0.400, Neut % (Auto) 78.9 H, Lymph % (Auto) 12.3 L, [place] % (Auto) 7.7, Eos % (Auto) 0.4, Baso % (Auto) 0.3, Absolute Neuts (auto) 5.3, Absolute Lymphs (auto) 0.83, Nucleated RBC % 0, Sodium 138, Potassium 3.7, Chloride 108 H, Carbon Dioxide 25.0, Anion Gap 5, BUN 24 H, Creatinine 1.02, EstGFR (MDRD) Af Amer 69, Est GFR (MDRD) Non-Af 57 L, BUN/Creatinine Ratio 23.5 H, Glucose 117 H, Calcium 9.6 06/12/23 14:05: Urine Color Yellow, Urine Clarity Sl. Cloudy, Urine pH 5.0, Ur Specific [place] 1.020, Urine Protein 100 H, Urine Glucose (UA) Normal, Urine Ketones 5 H, Urine Occult Blood 10 H, Urine Nitrite Negative, Urine Bilirubin Negative, Urine Urobilinogen 1 H, Ur Leukocyte Esterase 100 H, Urine RBC 0-5 SEEN, Urine WBC 10- 25 SEEN, Ur Squamous Epith Cells 10-25 SEEN, Urine Bacteria 2+, Hyaline Casts 0-5 SEEN, Urine Mucus 0 SEEN Assessment & Plan Assessment/Plan (1) Diarrhea: PLAN: Plan The patient is a 68 y/o F w/ PMHx: GERD, Chronic migraines, Hx COVID, Tobacco use, HTN, HLD, Anxiety and Depression, Chronic back pain with bilateral lower extremity radiculopathy with recent back surgery specifically hemilaminectomy per record report 05/2023 with transition following to TCU with return to home 06/07/2023 initially doing well at home however she lives alone and does use a wheeled walker and over the last 3 days she has been having loose stools with increased weakness and debility not on any recent antibiotics with reportedly 3-4 loose bowel movements and then a solid bowel movement prompting call to her PCP who referred to the ED for IV fluids and stool cultures. #1. Adult Failure to Thrive complicated by #2 with increase fatigue, weakness, difficulty caring for self in home: Will admit to medical surgical floor to be cautious, maintain on judicious IV fluids, assessing stools as noted, will monitor I&Os, maintain on fall precautions, PT/OT/case management consulted for discharge planning. Given the situation patient may potentially need repeat skilled facility placement temporarily. Procalcitonin requested. #2. Persistent loose stools, possible gastroenteritis: Will continue hydration,requested C. difficile and stool culture as well as respiratory viral panel. Will not start antibiotics at this time given unclear source pending stool studies as may be viral gastroenteritis or alternate etiology. #3. Chronic lumbar back pain with recent history of hemilaminectomy: Encourage positional changes, PT/OT/case management consulted for discharge planning, maintain on fall precautions, continue gabapentin as well as patient home hydrocodone regimen. #4. Anxiety and depression: We will continue patient home venlafaxine regimen. #5. Tobacco Abuse: Encouraged cessation, inpatient consultation per RT, NR if desired. #6. Hypertension: Continue home regimen including losartan, PRN hydralazine. #7. Hyperlipidemia: We will continue patient on statin therapy. #8. DVT prophylaxis: Lovenox. #9. CODE status: Patient HCPOA is Beau Leach her friend and living will is currently in place. Discussed CODE status at length including difference betweenFULL code, DNR-CCA and DNR-CC status. Following discussions about the differences in these status, requested Full Code status. Advanced Care Planning Face to Face Time: 16 minutes. Charges/Coding Visit Charges Inpatient E&M: 60516 Init Hosp L2 Procedures Hospitalists Procedures: 44817 Advncd Care Plan 30 Min 06/12/231917 <Electronically signed by Jeri Burns MD> Cosigner Signature (if applicable): CC: SCOOTER Woodson; Dr. Jeri Burns MD~ Signed [facility] Work Phone: 1(279) 284-147401-08-2024 History and physical note Author Jeri Burns [facility] June 12, 2023 7:18pm Note Date/Time June 12, 2023 5: 53pm [facility] Medical Records Department [address] [place] [address] H&P Exam - Hospitalist 06/12/23 1753 MR#: [id number] Acct: [id number] Name: FILIBERTO VALDIVIA Rep #: [id number] : 1955 68 From: Jeri Burns MD PCP: SCOOTER Newton Sta tus:REG ER Location: ED HPI - General General Date of Admission: 06/12/23 Date of Service: 06/12/23 Chief Complaint: Fatigue, weakness, loose stools. HPI Narrative The patient is a 68 y/o F w/ PMHx: GERD, Chronic migraines, Hx COVID, Tobacco use, HTN, HLD, Anxiety and Depression, Chronic back pain with bilateral lower extremity radiculopathy with recent back surgery specifically hemilaminectomy per record report 05/2023 with transition following to TCU with return to home 06/07/2023 initially doing well at home however she lives alone and does use a wheeled walker and over the last 3 days she has been having loose stools with increased weakness and debility not on any recent antibiotics with reportedly 3-4 loose bowel movements and then a solid bowel movement prompting call to her PCP who referred to the ED for IV fluids and stool cultures. She does report taking Pepto-Bismol and occasionally has had dark stools following this. She denies any recent ill contacts. She notes currently no diarrhea since this AM. She notes also pain in the lumbar spine dull aching, sharp with activity attempts, rated currently 5/10 in severity. She denies any recent fever, chills,URI symptoms, abdominal pain, nausea or emesis associated. Workup in the ED included T96.6, heart rate 108, BP 164/115, respiratory rate 20, 94% on room air, CBC with WBC 6.8, hemoglobin 12, platelet 404 without marked shift, BMP with chloride 108, BUN/creatinine 24/1.02, glucose 117, urinalysis noted to be cloudywith specific gravity 1.020, protein 100, ketone 5, occult blood 10, negative nitrite, leukocyte Estrace 100 with urine WBCs 10-25 however is a poor sample with squamous epithelial cells noted to be also 10-25 with 2+ urine bacteria. In the ED patient ministered 1 L normal saline, Zofran 4 mg IV x 1 as well as hydrocodone 1 tablet x 1. [facility] Medical History Anxiety Basal cell carcinoma Chronic back pain COVID Endometriosis Essential hypertension GERD (gastroesophageal reflux disease) IBS (irritable bowel syndrome) Migraine Mixed hyperlipidemia Scoliosis Smoker Smokes cigarettes Vitamin D deficiency Home Medications atorvastatin 40 mg tablet 40 mg PO QHS CHOLESTEROL 05/15/23 [History Last Taken Unknown] ergocalciferol (vitamin D2) 1,250 mcg (50,000 unit) capsule 50,000 unit PO QMONTH SUPPLEMENT 05/15/23 [History Last Taken 05/09/23] multivitamin 1 tab PO DAILY HEALTH MAINTENACE 05/15/23 [History Last Taken Unknown] venlafaxine 75 mg capsule,extended release 24 hr (Effexor XR) 75 mg PO DAILY DEPRESSION 05/15/23 [History Last Taken Unknown] losartan 100 mg tablet (Cozaar) 100 mg PO DAILY BLOOD PRESSURE #1 TAB 05/26/23 [Rx Last Taken Unknown] sennosides 8.6 mg-docusate sodium 50 mg tablet (Stool Softener-Stimulant Laxative) 2 tab PO BID STOOL SOFTENER #120 tabs 06/06/23 [Rx Last Taken Unknown] cyclobenzaprine 5 mg tablet 5 mg PO TID PRN MUSCLE SPASMS 06/12/23 [History Last Taken Unknown] gabapentin 100 mg capsule 200 mg PO BID NERVE PAIN 06/12/23 [History Last Taken Unknown] gabapentin 100 mg capsule 300 mg PO QHS NERVE PAIN 06/12/23 [History Last Taken Unknown] hydrocodone-acetaminophen 5-325mg 5mg-325mg 1 - 2 tab PO Q6H PRN PAIN 06/12/23 [History Last Taken Unknown] magnesium hydroxide 400 mg/5 mL oral suspension 30 ml PO X1 PRN CONSTIPATION 06/12/23 [History Last Taken Unknown] Allergy/AdvReac Type Severity Reaction Status Date / Time No Known Allergies Allergy Verified 06/12/23 12:04 Family History Father Heart failure Mother Kidney disease Alzheimer disease Surgical History (Updated 06/12/23 @ 19:[address] Jeri Burns MD) Cataract extraction status History of appendectomy History of hemilaminectomy History of tonsillectomy S/P ORIF (open reduction internal fixation) fracture Social History (Updated 06/12/23 @ 19:[address] Jeri Burns MD) household members: none current occupational status: retired current occupation: Worked at [employer] pets and animals: Yes pets and animals: cat(s) and dog(s) Smoking Status: Current some day smoker tobacco type: cigarettes quit status: considering quitting alcohol intake: current alcohol intake frequency: 0-2 drinks per day Alcohol type: beer substance use type: does not use do you feel safe at home: Yes ROS ROS Narrative Admission Review of Systems: CONSTITUTIONAL: No weight loss, fever, chills, + weakness or fatigue. HEENT: Eyes: No visual loss, blurred vision, double vision or yellow sclerae. Ears, Nose, Throat: No hearing loss, sneezing, congestion, runny nose or sore throat. SKIN: No rash or itching, lesions, wounds. CARDIOVASCULAR: No chest pain, chest pressure or chest discomfort, palpitations,edema, orthopnea, syncopal events. RESPIRATORY: No shortness of breath, cough or sputum, wheezing, hemoptysis. GASTROINTESTINAL: + Diarrhea. No anorexia, nausea, vomiting, abdominal pain, melena, BRBPR. GENITOURINARY: No dysuria, frequency, urgency or retention. NEUROLOGICAL: No headache, dizziness, syncope, paralysis, ataxia, numbness or tingling in the extremities, focal weakness, change in bowel or bladder control, seizure. MUSCULOSKELETAL: + muscle, back pain, joint pain or stiffness. HEMATOLOGIC: No anemia, bleeding or bruising. LYMPHATICS: No enlarged nodes. No history of splenectomy. PSYCHIATRIC: + history of depression or anxiety. ENDOCRINOLOGIC: No reports of sweating, cold or heat intolerance. No polyuria orpolydipsia. ALLERGIES: No history of asthma, hives, eczema or rhinitis. Vital Signs Vital Signs Vital Signs: 06/12/23 12:04 Temperature 96.6 F L Temperature Source Temporal Pulse Rate 108 H Respiratory Rate 20 H Blood Pressure 164/115 H Blood Pressure Mean 131 Pulse Ox 94 Oxygen Delivery Method Room Air Weight Weight: 182 lb 8.684 oz Body Mass Index (BMI) 26.2 Physical Exam Narrative Physical Examination: General: Awake, alert, oriented x 3 and cooperative, laying in the ED bed, fatigued appearing, notes back discomfort currently 5/10 in severity. Skin: Normal color, normal turgor, no icterus, no cyanosis. HEENT: AT/NC, EOMI, PERRLA, mildly dry MM, no carotid bruits or JVD noted. Lungs: CTA bilaterally, moderate effort, mild decrease BL bases, no rales, ronchi or wheezing. Heart: Mildly tachycardic with regular rhythm; no gallop, rub audible. Abdomen: Soft, NTTP, ND, hyperactive BS, no HSM. Extremities: No cyanosis, clubbing, or edema. Neurological: Patient awake, alert, oriented as noted, cognitive function intact; pupils equally reactive to light and accommodation, cranial nerves grossly normal, moving all 4 extremities, no focal deficits, strength moderatelyto severely global decrease secondary to acute presentation complaints compounded by recent lumbar surgery. Psychiatric: Affect appears flat, fatigued, no acute evidence of depressive or anxiety feelings but does have underlying history. Results Lab / Micro Data 06/12/23 12:30 06/12/23 12:30 Labs: Laboratory Results - last 24 hr 06/12/23 12:30: WBC 6.8, RBC 4.19 L, Hgb 12.0, Hct 37.3, MCV 89.0, MCH 28.6, MCHC 32.2, RDW Std Deviation 41.6, RDW Coeff of Lizzy 12.9, Plt Count 404, MPV 9.0, Immature Gran % (Auto) 0.400, Neut % (Auto) 78.9 H, Lymph % (Auto) 12.3 L, [place] % (Auto) 7.7, Eos % (Auto) 0.4, Baso % (Auto) 0.3, Absolute Neuts (auto) 5.3, Absolute Lymphs (auto) 0.83, Nucleated RBC % 0, Sodium 138, Potassium 3.7, Chloride 108 H, Carbon Dioxide 25.0, Anion Gap 5, BUN 24 H, Creatinine 1.02, EstGFR (MDRD) Af Amer 69, Est GFR (MDRD) Non-Af 57 L, BUN/Creatinine Ratio 23.5 H, Glucose 117 H, Calcium 9.6 06/12/23 14:05: Urine Color Yellow, Urine Clarity Sl. Cloudy, Urine pH 5.0, Ur Specific [place] 1.020, Urine Protein 100 H, Urine Glucose (UA) Normal, Urine Ketones 5 H, Urine Occult Blood 10 H, Urine Nitrite Negative, Urine Bilirubin Negative, Urine Urobilinogen 1 H, Ur Leukocyte Esterase 100 H, Urine RBC 0-5 SEEN, Urine WBC 10- 25 SEEN, Ur Squamous Epith Cells 10-25 SEEN, Urine Bacteria 2+, Hyaline Casts 0-5 SEEN, Urine Mucus 0 SEEN Assessment & Plan Assessment/Plan (1) Diarrhea: PLAN: Plan The patient is a 68 y/o F w/ PMHx: GERD, Chronic migraines, Hx COVID, Tobacco use, HTN, HLD, Anxiety and Depression, Chronic back pain with bilateral lower extremity radiculopathy with recent back surgery specifically hemilaminectomy per record report 05/2023 with transition following to TCU with return to home 06/07/2023 initially doing well at home however she lives alone and does use a wheeled walker and over the last 3 days she has been having loose stools with increased weakness and debility not on any recent antibiotics with reportedly 3-4 loose bowel movements and then a solid bowel movement prompting call to her PCP who referred to the ED for IV fluids and stool cultures. #1. Adult Failure to Thrive complicated by #2 with increase fatigue, weakness, difficulty caring for self in home: Will admit to medical surgical floor to be cautious, maintain on judicious IV fluids, assessing stools as noted, will monitor I&Os, maintain on fall precautions, PT/OT/case management consulted for discharge planning. Given the situation patient may potentially need repeat skilled facility placement temporarily. Procalcitonin requested. #2. Persistent loose stools, possible gastroenteritis: Will continue hydration,requested C. difficile and stool culture as well as respiratory viral panel. Will not start antibiotics at this time given unclear source pending stool studies as may be viral gastroenteritis or alternate etiology. #3. Chronic lumbar back pain with recent history of hemilaminectomy: Encourage positional changes, PT/OT/case management consulted for discharge planning, maintain on fall precautions, continue gabapentin as well as patient home hydrocodone regimen. #4. Anxiety and depression: We will continue patient home venlafaxine regimen. #5. Tobacco Abuse: Encouraged cessation, inpatient consultation per RT, NR if desired. #6. Hypertension: Continue home regimen including losartan, PRN hydralazine. #7. Hyperlipidemia: We will continue patient on statin therapy. #8. DVT prophylaxis: Lovenox. #9. CODE status: Patient POLO is Beau Leach her friend and living will is currently in place. Discussed CODE status at length including difference betweenFULL code, DNR-CCA and DNR-CC status. Following discussions about the differences in these status, requested Full Code status. Advanced Care Planning Face to Face Time: 16 minutes. Charges/Coding Visit Charges Inpatient E&M: 15541 Init Hosp L2 Procedures Hospitalists Procedures: 28112 Advncd Care Plan 30 Min 06/12/231917 <Electronically signed by Jeri Burns MD> Cosigner Signature (if applicable): CC: SCOOTER Woodson; Dr. Jeri Burns MD~ Signed [facility] Work Phone: 1(982) 769-506201-02-2024 Discharge summary Author Ava Montanodelbert [facility] June 06, 2023 5:45pm Note Date/Time June 06, 2023 5: 45pm [facility] Medical Records Department [facility] [place] [address] Discharge Summary 06/06/23 1725 MR#: [id number] Acct: [id number] Name: FILIBERTO VALDIVIA Rep #: [id number] : 1955 68 From: Ava Castle DO PCP: SCOOTER Newton tus:ADM IN Location: [place] [id number] Providers Date of Admission: 05/27/23 Date of Discharge: 06/07/23 Primary Care Physician: SCOOTER Newton Reason For Visit: LAMINECTOMY Diagnosis Discharge Diagnosis (1) Debility: Status: Acute Code(s): R53.81 - Other malaise (2) Hx of decompressive lumbar laminectomy: Status: Acute Code(s): Z98.890 - Other specified postprocedural states (3) Radicular pain of both lower extremities: Status: Chronic Code(s): M54.10 - Radiculopathy, site unspecified (4) Acute blood loss anemia: Status: Acute Code(s): D62 - Acute posthemorrhagic anemia (5) Chronic back pain: Status: Inactive Code(s): M54.9 - Dorsalgia, unspecified; G89.29 - Other chronic pain Qualifiers: Back pain location: low back pain Back pain laterality: midline Sciatica presence: unspecified whether sciatica present Qualified Code(s): M54.50 - Low back pain, unspecified; G89.29 - Other chronic pain (6) Essential hypertension: Status: Inactive Code(s): I10 - Essential (primary) hypertension (7) Mixed hyperlipidemia: Status: Inactive Code(s): E78.2 - Mixed hyperlipidemia (8) Anxiety: Status: Inactive Code(s): F41.9 - Anxiety disorder, unspecified (9) Vitamin D deficiency: Status: Inactive Code(s): E55.9 - Vitamin D deficiency, unspecified (10) Smokes cigarettes: Status: Inactive Code(s): F17.210 - Nicotine dependence, cigarettes, uncomplicated Plan 1. Discharge home with outpatient therapy at [facility] 2. Patient is unsafe to use a cane and requires a front wheeled walker for ambulation in the home and in the community. 3. Patient requires a hospital bed due to needing frequent changes in position to alleviate pain that is not feasible in an ordinary bed. Diagnosis is lumbar canal stenosis with radiculopathy. 4. Patient is unable to access her bathroom safely with a front wheeled walker and requires a 3 in 1 commode. 5. She will follow up with Dr. Leon and with Dr. Shaw post DC Medications at Discharge Home Medications atorvastatin 40 mg tablet 40 mg PO QHS cholesterol 05/15/23 ergocalciferol (vitamin D2) 1,250 mcg (50,000 unit) capsule 50,000 unit PO QMONTH supplement 05/15/23 multivitamin 1 tab PO DAILY supplement 05/15/23 venlafaxine 75 mg capsule,extended release 24 hr (Effexor XR) 75 mg PO DAILY depression 05/15/23 losartan 100 mg tablet (Cozaar) 100 mg PO DAILY #1 TAB 05/26/23 cyclobenzaprine 5 mg tablet 5 mg PO TID PRN muscle spasm #30 tabs 06/06/23 gabapentin 100 mg capsule See Rx Instructions .Route .COMPLEX 14 days #75 caps 06/06/23 hydrocodone-acetaminophen 5-325mg 5mg-325mg 2 tab PO Q6H PRN pain 7 days #42 tabs 06/06/23 magnesium hydroxide 400 mg/5 mL oral suspension 30 ml PO X1 PRN Constipation #1 mL 06/06/23 sennosides 8.6 mg-docusate sodium 50 mg tablet (Stool Softener-Stimulant Laxative) 2 tab PO BID #120 tabs 06/06/23 Hospital Course Operations TURP (Lumbar laminectomy and fusion on 05/09/2023 at the [facility] by Dr. Leon) Procedures None Summary of Care Provided Minutes Spent on Discharge: 35 Hospital Course: FILIBERTO CORMIER, is a 68 F with PMH of HTN, HLD, Anxiety, chronic backpain with radiculopathy to the BL extremities, vitamin D deficiency and tobacco dependence who underwent a lumbar laminectomy and fusion at the [facility] by Dr. J Luis Leon on 05/09/2023. There were no post surgical complications and she was transferred to the acute inpt rehab unit at [facility] on 05/15/23 for 3 hours of therapy daily. She lives alone. She will not be able to drive post discharge. At the time of DC from acute rehab Filiberto did not feel ready/safe to go home by herself and she has no one to help her at home. She was transferred to the transitional care unit at [facility] on 05/27/2023 for additional therapy prior to returning home. Hina had recurrent R buttock pain while on TCU and it was impairing her sleep. She was started on 300 mg of gabapentin at bedtime and her sleep improved significantly. She continued to complain of right buttock pain and 100mg twice daily of gabapentin was added to the drug regimen. After several days the pain was a little better but she still had pain. The dose was increased to 200 mg twice daily and 300 mg at bedtime. On this regimen she has mild pain in her right buttock but it is tolerable and certainly much improved. She is now having some drowsiness during the day and I did not feel it was prudent to increase the daytime dose to 300 mg. She was discharged on 200 mg twice daily and 300 mg at bedtime and will discuss with Dr. J Luis Leon at her next visit. She is using 5 mg of [place] 5/325mg 2-3 times a day and 2 tabs at HS at the time of DC. The hemoglobin at discharge is 9.7 and stable. It was 9.4 at admission to acute rehab. Kidney function is stable but the BUN/creatinine ratio is always elevated above 20 and she has been encouraged to increase her fluid intake on multiple occasions. At the time of discharge from TCU she is independent with eating and supervision/set up for grooming. She is independent with upper body dressing and lower body dressing and supervision/set up for bathing. She is independent with toilet transfer and toileting and standby assist for tub/showertransfer. She has ambulated up to 400 feet with a wheeled walker independently and ascended/descended 13 steps with 2 handrails at standby assist/contact-guardassist. she is going to have continued PT/OT [place] an OP at [facility] and the has arranged for the hospital van to transport her since she lives alone and is unable to drive currently. She will follow-up with Dr. Calderon her PCP andalso with Dr. J Luis Leon, orthopedic surgeon. Physical Exam Const alert, oriented x3 and no apparent distress Constitutional Narrative: Making good eye contact, appropriate General Appearance: cooperative and comfortable HEENT moist oral mucous membranes Neck no lymphadenopathy, supple, no JVD and no carotid bruits Resp normal respiratory effort, no use of accessory muscles and clear to auscultationbilaterally Resp Narrative: Not tachypneic and no conversational dyspnea. Cardio regular rate, regular rhythm, S1 normal heart sound, S2 normal heart sound, no murmurs, no rub and no gallops GI normal to inspection, nondistended, normoactive bowel sounds and non-tender GI Narrative: No guarding with palpation. Extremity no clubbing, cyanosis or edema Extremity Narrative: Negative Lucian's and Vasiliy's signs Skin Skin Narrative: No rashes, no skin breakdown. The incision is intact with no dehiscence, no purulent discharge and no rubio-incisional erythema. No significant swelling around the incision. Neuro oriented x3, CN's II-XII intact bilaterally and no focal motor deficits Motor Exam: strength 5/5 throughout Psych affect normal Psych Narrative: Appropriate, making good eye contact. Able to stay on topic and focus. No flight of ideas. Does not appear anxious or depressed. Conversant and relating well to staff. Weight / BMI Weight Weight: 181 lb 8 oz Body Mass Index (BMI) 26.4 ABG / Lab / Microbiology Data 06/04/23 04:46 06/04/23 04:46 Microbiology: Microbiology 06/06/23 05:34 Nasal Secretion SARS-CoV-2 Antigen (Rapid) - Final 05/31/23 12:42 Nasal Secretion SARS-CoV-2 Antigen (Rapid) - Final D/C Instructions Discharge Diet: No restrictions Weight Bearing Status: Full weight bearing Keep extremity elevated above heart level: Legs Call your doctor if your incision/area has: Sudden Increased Bleeding, IncreasedPain/ Swelling, Increased Redness, Foul Smelling Discharge, Swelling at the incision site and - (Examine the incision daily or have someone else look at it daily. If there is any separation of the incision, rubio-incisional redness withincreased warmth, purulent or foul-smelling discharge please call the surgeon and get advice on what to do. ) Call your doctor if you observe: Fever of 101 or Higher, Numbness or Tingling, Inability to urinate, Inability to have a bowel movement, Shortness of breath, Dizziness, Fainting spells, Chest pain, Increased palpitations (irregular heartbeat), Calf discomfort and Uncontrolled pain Suture Line Care: Avoid Pulling/Pushing and Avoid Pinching/Bending Cleanse incision/area with: Soap & Water Additional Dressing/Incision Instructions: No dressing is necessary unless the incision is open and then apply a dry dressing. If your clothes irritate the incision then you may cover the incision with a dry dressing no pad it. Pending Tests Upon Discharge: none Please Follow Up With: Dr. Velez Meaningful Use Info Meaningful Use Diagnoses (Choose all that apply): None applicable Discharge Plan Admission Admit Date/Time: 12/23/23 10:50 Primary Reason for Your Visit: Debility secondary to lumbar canal stenosis/lumbar laminectomy/fusion Attending Provider: Larry Kent Chi Primary Care Provider: Candy Woodson WASH OIL PUMP OPERATOR HELPER Instructions Patient Instructions: Caring for Your Incision, Managing Post-Op Pain at Home Additional Instructions / Restrictions: 1. No bending, no lifting and no twisting. 2. Do not sit for longer than 1 hours without getting up to take a walk. It helps with stiffness and pain control. If you get too stiff the pain will increase and then you won't want to get up and walk. 3. I do not want to increase the daytime Gabapentin dose yet because it has only been a few days and you have gotten somewhat better. This drug can cause sleepiness, lightheadedness, dysequilibrium and a slowing of thought processes and I do not want you to fall and potentially injure your back. 4. No driving. Riding in a car will be painful so try and limit car rides to 30 minutes or less. 5. You have done very well in therapy and I suspect you will continue to do well. you will need ongoing home health or outpatient therapy after discharge. OP therapy is better. 6. It has been a pleasure meeting you and if you ever need our services again will be here for you. If you have any questions after discharge please do not hesitate to call me. Happy new year. OFFICE: [phone] CELL: [phone] Discharge Orders/Prescriptions Prescriptions: New gabapentin 100 mg Capsule See Rx Instructions .ROUTE .COMPLEX 14 Days Qty: 75 1RF Rx Instructions: 200 mg (2 caps) orally twice daily and 300 mg (3 caps) at HS cyclobenzaprine 5 mg tablet 5 mg PO TID PRN (Reason: muscle spasm) Qty: 30 0RF Rx Instructions: 1 tab up to 3 times daily as needed for muscle spasm. Continued atorvastatin 40 mg tablet 40 mg PO QHS ergocalciferol (vitamin D2) 1,250 mcg (50,000 unit) capsule 50,000 unit PO QMONTH multivitamin Tablet 1 tab PO DAILY venlafaxine [Effexor XR] 75 mg capsule,extended release 24hr 75 mg PO DAILY losartan [Cozaar] 100 mg tablet 100 mg PO DAILY Qty: 1 0RF sennosides-docusate sodium [Stool Softener-Stimulant Laxat] 8.6-50 mg Tablet 2 tab PO BID Qty: 120 0RF magnesium hydroxide 400 mg/5 mL Suspension 30 ml PO X1 PRN (Reason: Constipation) Qty: 1 0RF Rx Instructions: This is an over the counter drug and not covered by insurance Changed hydrocodone-acetaminophen 5-325 mg Tablet 2 tab PO Q6H PRN (Reason: pain) 7 Days Qty: 42 0RF Rx Instructions: Take 1 tab for pain 3-6 and 2 tabs for pain > 6. Discontinued hydrocodone-acetaminophen 5-325 mg Tablet 1 - 2 tab PO Q6H PRN PRN (Reason: Pain Score 4-10) 1 Days Qty: 1 0RF Rx Instructions: 5 mg for pain 4-6 and 10 mg for pain 7 and above. bisacodyl 10 mg Suppository 10 mg NM X1 PRN (Reason: Constipation) Qty: 1 0RF gabapentin 300 mg Capsule 300 mg PO 2000 Qty: 1 0RF tizanidine 2 mg capsule 2 mg PO QHS Qty: 1 0RF Referrals / Follow Up: J Luis Leon MD [Non-Staff] - 06/09/23 9:00 am Candy Woodson WASH OIL PUMP OPERATOR HELPER, WASH OIL PUMP OPERATOR HELPER-C [Primary Care Provider] - (Filiberto to make this appointment) Disposition Disposition (needs filled in before D/C Order can be placed): Home, Self Care Charges/Coding Visit Charges Inpatient E&M: 95683 SNF Disch >30 Min 06/06/23 4293 <Electronically signed by Ava Castle DO> Cosigner Signature (if applicable): CC: WASH OIL PUMP OPERATOR HELPER-C Candy Woodson; Dr. J Luis Leon MD; Dr. Ava Luque DO~ Signed [facility] Work Phone: 1(112) 594-296901-02-2024 Discharge summary Author Ava Castle [facility] June 06, 2023 5:25pm Note Date/Time June 06, 2023 1: 54pm [facility] Medical Records Department [address] [place] [address] Instructions for Home/Discharge Instructions 06/06/23 1344 MR#: [id number] Acct: [id number] Name: FILIBERTO VALDIVIA Rep #: [id number] : 1955 68 From: Ava Castle PCP: SCOOTER Newton tus:ADM IN Discharge Instructions Diet Discharge Diet: No restrictions Activity Discharge Activity: May Not Drive, May Shower (No tub baths until okayed by Dr. Leon. ), Use Walker and - (Maintain back precautions: No bending, lifting more than 5 pounds or twisting.) Weight Bearing Status: Full weight bearing Keep extremity elevated above heart level: Legs Dressing / Incision Call your doctor if your incision/area has: Sudden Increased Bleeding, IncreasedPain/ Swelling, Increased Redness, Foul Smelling Discharge, Swelling at the incision site and - (Examine the incision daily or have someone else look at it daily. If there is any separation of the incision, rubio-incisional redness withincreased warmth, purulent or foul-smelling discharge please call the surgeon and get advice on what to do. ) Call your doctor if you observe: Fever of 101 or Higher, Numbness or Tingling, Inability to urinate, Inability to have a bowel movement, Shortness of breath, Dizziness, Fainting spells, Chest pain, Increased palpitations (irregular heartbeat), Calf discomfort and Uncontrolled pain Suture Line Care: Avoid Pulling/Pushing and Avoid Pinching/Bending Cleanse incision/area with: Soap & Water Additional Dressing/Incision Instructions:: No dressing is necessary unless the incision is open and then apply a dry dressing. If your clothes irritate the incision then you may cover the incision with a dry dressing no pad it. Follow Up Care Please Follow Up With: Dr. Velez Test Results: Test results from this visit will be discussed in further detail at your follow- up appointment, if applicable. Pending Tests Upon Discharge: none Discharge Plan Admission Admit Date/Time: 05/27/23 10:50 Primary Reason for Your Visit: Debility secondary to lumbar canal stenosis/lumbar laminectomy/fusion Attending Provider: Larry Kent Chi Primary Care Provider: Candy Woodson NP Instructions Patient Instructions: Caring for Your Incision, Managing Post-Op Pain at Home Additional Instructions / Restrictions: 1. No bending, no lifting and no twisting. 2. Do not sit for longer than 1 hours without getting up to take a walk. It helps with stiffness and pain control. If you get too stiff the pain will increase and then you won't want to get up and walk. 3. I do not want to increase the daytime Gabapentin dose yet because it has only been a few days and you have gotten somewhat better. This drug can cause sleepiness, lightheadedness, dysequilibrium and a slowing of thought processes and I do not want you to fall and potentially injure your back. 4. No driving. Riding in a car will be painful so try and limit car rides to 30 minutes or less. 5. You have done very well in therapy and I suspect you will continue to do well. you will need ongoing home health or outpatient therapy after discharge. OP therapy is better. 6. It has been a pleasure meeting you and if you ever need our services again will be here for you. If you have any questions after discharge please do not hesitate to call me. Happy new year. OFFICE: [phone] CELL: [phone] Discharge Orders/Prescriptions Prescriptions: New gabapentin 100 mg Capsule See Rx Instructions .ROUTE .COMPLEX 14 Days Qty: 75 1RF Rx Instructions: 200 mg (2 caps) orally twice daily and 300 mg (3 caps) at HS cyclobenzaprine 5 mg tablet 5 mg PO TID PRN (Reason: muscle spasm) Qty: 30 0RF Rx Instructions: 1 tab up to 3 times daily as needed for muscle spasm. Continued atorvastatin 40 mg tablet 40 mg PO QHS ergocalciferol (vitamin D2) 1,250 mcg (50,000 unit) capsule 50,000 unit PO QMONTH multivitamin Tablet 1 tab PO DAILY venlafaxine [Effexor XR] 75 mg capsule,extended release 24hr 75 mg PO DAILY losartan [Cozaar] 100 mg tablet 100 mg PO DAILY Qty: 1 0RF sennosides-docusate sodium [Stool Softener-Stimulant Laxat] 8.6-50 mg Tablet 2 tab PO BID Qty: 120 0RF magnesium hydroxide 400 mg/5 mL Suspension 30 ml PO X1 PRN (Reason: Constipation) Qty: 1 0RF Rx Instructions: This is an over the counter drug and not covered by insurance Changed hydrocodone-acetaminophen 5-325 mg Tablet 2 tab PO Q6H PRN (Reason: pain) 7 Days Qty: 42 0RF Rx Instructions: Take 1 tab for pain 3-6 and 2 tabs for pain > 6. Discontinued hydrocodone-acetaminophen 5-325 mg Tablet 1 - 2 tab PO Q6H PRN PRN (Reason: Pain Score 4-10) 1 Days Qty: 1 0RF Rx Instructions: 5 mg for pain 4-6 and 10 mg for pain 7 and above. bisacodyl 10 mg Suppository 10 mg NM X1 PRN (Reason: Constipation) Qty: 1 0RF gabapentin 300 mg Capsule 300 mg PO 1999 Qty: 1 0RF tizanidine 2 mg capsule 2 mg PO QHS Qty: 1 0RF Referrals / Follow Up: J Luis Leon MD [Non-Staff] - 06/09/23 9:00 am Candy Woodson NP, [employer]PERATOR HELPER-[employer] [Primary Care Provider] - (Filiberto to make this appointment) Disposition Disposition (needs filled in before D/C Order can be placed): Home, Self Care 06/06/23 3160<Electronically signed by Ava Castle DO>Ava Castle DO CC: TWILAC Candy Woodson; Dr. J Luis Leon MD ~ Signed [facility] Work Phone: 1([phone]) 817-116212-29-2023 Progress note Author [facility] June 02, 2023 6:08pm Note Date/Time May 31, 2023 4:12pm [facility] Medical Records Department [address] [place] [address] Progress Note - Pharmacy 05/31/23 1611 MR#: [id number] Acct: [id number] Name: PATRIZIA CORMIERFILIBERTO RE Rep #: [id number] : 1955 68 From: Korin Matthew PCP: SCOOTER Newton Sta tus:ADM IN Location: TCU [facility] TCU RX Drug Regimen Review Subjective/Objective Subjective/Objective: Subjective: TCU Admission. 68 YOF admitted to acute rehab following a lumbar laminectomy and fusion on 05/09/23 for spinal canal stenosis. Admitted to TCU with debility for strengthening and rehabilitation. Objective: Allergies No Known Allergies Allergy (Verified 05/15/23 14:47) Current Medications Generic Name Dose Route Start Last Admin Trade Name Haider PRN Reason Stop Dose Admin Hydrocodone Bitart/Acetaminophen 2 tablet 05/27/23 22:00 05/30/23 20:20 Hydrocodone Bitartrate/Apap 5/325 Tablet PO 2 tablet HS JOEY Administration Hydrocodone Bitart/Acetaminophen 0 tablet 05/31/23 15:15 Hydrocodone Bitartrate/Apap 5/325 Tablet PO Q6H PRN PRN Pain Score 4-10 Atorvastatin Calcium 40 mg 05/27/23 22:00 05/30/23 20:19 Atorvastatin Calcium 40 Mg Tablet PO 40 mg QHS JOEY Administration Bisacodyl 10 mg 05/27/23 11:16 Bisacodyl 10 Mg Suppository RC DAILY PRN Constipation Ergocalciferol 1.25 mg 06/26/23 10:00 Ergocalciferol 1.25 Mg (50, 000 Unit) Capsule PO QMONTH@1000 JOEY Gabapentin 300 mg 05/27/23 22:00 05/30/23 20:20 Gabapentin 300 Mg Capsule PO 300 mg HS JOEY Administration Gabapentin 100 mg 05/29/23 13:30 05/31/23 09:05 Gabapentin 100 Mg Capsule PO 100 mg BIDCM JOEY Administration Losartan Potassium 100 mg 05/28/23 10:00 05/31/23 09:05 Losartan Potassium 100 Mg Tablet PO 100 mg DAILY JOEY Administration Protocol Magnesium Hydroxide 30 ml 05/27/23 11:26 05/29/23 12:58 Magnesium Hydroxide 30 Ml Udc PO 30 ml DAILY PRN Administration CONSTIPATION Senna/Docusate Sodium 2 tablet 05/27/23 22:00 05/31/23 09:05 Senna/Docusate Sodium 1 Tablet PO 2 tablet BID JOEY Administration Tizanidine HCl 2 mg 05/27/23 22:00 05/30/23 20:20 Tizanidine Hcl 2 Mg Tablet PO 2 mg HS JOEY Administration Tuberculin PPD 0.1 ml 06/04/23 10:00 Tuberculin,Purif.Prot.Deriv. 50 Tu/Ml Vial ID 06/04/23 10:01 X1 ONE Venlafaxine HCl 75 mg 05/28/23 10:00 05/31/23 09:05 Venlafaxine Xr 75 Mg Capsule PO 75 mg DAILY JOEY Administration Problem List (Updated 05/26/23 @ 14:[address] Chloe Sementi, DO) Hx of decompressive lumbar laminectomy (Acute) Radicular pain of both lower extremities (Chronic) Smokes cigarettes (Chronic) Vitamin D deficiency (Chronic) Anxiety (Chronic) Acute blood loss anemia (Acute) Mixed hyperlipidemia (Chronic) Essential hypertension (Chronic) Chronic back pain (Chronic) Debility (Acute) Vital Signs Temp Pulse Resp BP Pulse Ox O2 Del Method 96.3 F L 69 16 131/70 H 95 Room Air 05/31/23 14:30 05/31/23 14:30 05/31/23 14:30 05/31/23 14:30 05/31/23 14:30 05/31/23 14:30 Oxygen Delivery Method Room Air Weight: 80.422 kg Body Mass Index (BMI) 25.8 Sodium 137 mmol/L (136-145) 05/28/23 06:20 Potassium 4.3 mmol/L (3.5-5.1) 05/28/23 06:20 Chloride 106 mmol/L (98-107) 05/28/23 06:20 Carbon Dioxide 28.0 mmol/L (21.0-32.0) 05/28/23 06:20 Anion Gap 3 (5-15) L 05/28/23 06:20 BUN 18 mg/dL (7-18) 05/28/23 06:20 Creatinine 0.68 mg/dL (0.55-1.02) 05/28/23 06:20 Est GFR (MDRD) Af Amer 111 mL/min (>60) 05/28/23 06:20 Est GFR (MDRD) Non-Af 92 mL/min (>60) 05/28/23 06:20 BUN/Creatinine Ratio 26.6 RATIO (10-20) H 05/28/23 06:20 Glucose 95 mg/dL (74-106) 05/28/23 06:20 Assessment/Plan: 1. Pain (chronic back pain): [place] 5/325mg 2T PO QHS and 1-2T PO Q6H PRN pain 4- 10, tizanidine 2mg PO QHS. Resident has not had any PRN doses. Please continue to monitor for increased pain, PRN usage, constipation, respiratory depression, hypotension, dry mouth and drowsiness. 2. Bowel: senna/docusate 2T PO BID, MOM 30mL PO daily PRN constipation and bisacodyl 10mg RC daily PRN constipation. Resident has had 1 dose of MOM and no doses of bisacodyl. Last documented bowel movement 05/26. Please continue to monitor for constipation and PRN usage. 3. Hyperlipidemia: atorvastatin 40mg PO QHS. Please consider adding a lipid panel as there is no panel in the chart. Thanks. Please continue to monitor LFTs(last 05/16/23) and muscle pain. 4. Hypertension: losartan 100mg PO daily. Please continue to monitor BP (last 131/70), potassium (last 4.3mmol/L) and renal function. 5. Vitamin D deficiency: ergocalciferol 1.25mg PO monthly. Please consider ordering a vitamin D level as there is no level in the chart. Thanks. Assessment/Plan for indications treated with psychotropic medications: 1. Back pain: gabapentin 100mg PO BIDCM and 300mg QHS. GDR not appropriate as this medication is being used for pain. Please continue to monitor for confusion, falls/fractures (BEERs medication) and renal function. 2. Anxiety: venlafaxine XR 75mg PO daily. Please consider a GDR by 11/2023 if clinically appropriate. Thanks. Please continue to monitor for suicidal ideation(black box warning), falls/fractures (BEERs medication) and sodium (last 137mmol/L). Medical chart and medication regimen reviewed. The following medication irregularities or issues were identified: 1. Atorvastatin 40mg PO QHS. Please consider adding a lipid panel as there is nopanel in the chart. Thanks. 2. Ergocalciferol 1.25mg PO monthly. Please consider ordering a vitamin D level as there is no level in the chart. Thanks. 3. Venlafaxine XR 75mg PO daily. Please consider a GDR by 11/2023 if clinically appropriate. Thanks. Date Date of Note:: 05/31/23 05/31/23 1631 <Electronically signed by Korin Matthew> Korin Otero Signature (if applicable): 06/02/231807 <Electronically signed by Ava Castle DO> CC: ~ Signed [facility] Work Phone: 1(524) 502-607912-29-2023 Progress note Author Ava Castle [facility] June 02, 2023 5:15pm Note Date/Time June 02, 2023 5:15pm [facility] Medical Records Department [address] [place] [address] Progress Note 06/02/231711 MR#: [id number] Acct: [id number] Name: FILIBERTO VALDIVIA Rep #: [id number] : 1955 68 From: Ava Castle DO PCP: SCOOTER Newton tus:ADM IN Location: [place] 486983- Progress Note Continues to c/o R buttock pain. No radiation down the R leg. Able to sleep atnight when she gets 300 mg of Gabapentin. She is very alert today and denies any adverse effects with the Gabapentin. Will increase the dose to 20 mg BID andcontinue the 300 mg at HS. Patient is unable to access bathroom safely and requires a 3-in-1 commode. Patient is unsafe to use a cane and requires a walker for ambulation in the homeand the community. Patient requires a hospital bed d/t (choose corresponding phrase: needing frequent changes in position to alleviate pain, prevent ongoing pressure areas, assist in healing of current pressure areas, prevent aspiration or d/t respiratory condition) that is not feasible in an ordinary bed. Related to Dx Lumbar fusion and laminectomy. 06/02/231714 <Electronically signed by Ava Castle DO> Ava Castle DO Cosigner Signature (if applicable): CC: ~ Signed [facility] Work Phone: 1(380) 879-729812-25-2023 History and physical note Author Ava Montanodelbert [facility] May 29, 2023 2:58pm Note Date/Time May 29, 2023 10:30am [facility] Medical Records Department [address] [place] [address] History & Physical Exam 05/29/23 1007 MR#: [id number] Acct: [id number] Name: FILIBERTO VALDIVIA Rep #: [id number] : 1955 68 From: Ava Castle DO PCP: SCOOTER Newton tus:ADM IN Location: [place] [address] HPI - General General Date of Admission: 05/27/23 Date of Service: 05/29/23 Chief Complaint: Debility secondary to lumbar laminectomy/fusion. HPI Narrative FILIBERTO CORMIER, is a 68 F with a PMH of hypertension, hyperlipidemia, anxiety, chronic back pain, vitamin D deficiency and tobacco dependence who is well known to me from recent admission to acute rehab. She was admitted to acute rehab following a lumbar laminectomy and fusion on 05/09/23 for spinal canal stenosis. She lives alone and has no one to help her. She did not feel ready to be discharged home when her days in acute rehab and she was transferred to transitional care for additional therapy to strengthen prior to returning to her home. All lab drawn 05/28/2023 was personally reviewed and is stable. PFSH Medical History Basal cell carcinoma COVID Endometriosis GERD (gastroesophageal reflux disease) IBS (irritable bowel syndrome) Migraine Scoliosis Smoker Home Medications atorvastatin 40 mg tablet 40 mg PO QHS cholesterol 05/15/23 [History Last Taken Unknown] ergocalciferol (vitamin D2) 1,250 mcg (50,000 unit) capsule 50,000 unit PO QMONTH supplement 05/15/23 [History Last Taken 05/09/23] multivitamin 1 tab PO DAILY supplement 05/15/23 [History Last Taken Unknown] venlafaxine 75 mg capsule,extended release 24 hr (Effexor XR) 75 mg PO DAILY depression 05/15/23 [History Last Taken Unknown] bisacodyl 10 mg rectal suppository 10 mg NM X1 PRN Constipation #1 ea 05/26/23 [Rx Last Taken Unknown] gabapentin 300 mg capsule 300 mg PO 2000 #1 cap 05/26/23 [Rx Last Taken Unknown] hydrocodone-acetaminophen 5-325mg 5mg-325mg 1 - 2 tab PO Q6H PRN PRN Pain Score 4-10 1 day #1 TAB 05/26/23 [Rx Last Taken Unknown] hydrocodone-acetaminophen 5-325mg 5mg-325mg 2 tab PO QHS 1 day #2 tabs 05/26/23 [Rx Last Taken Unknown] losartan 100 mg tablet (Cozaar) 100 mg PO DAILY #1 TAB 05/26/23 [Rx Last Taken Unknown] magnesium hydroxide 400 mg/5 mL oral suspension 30 ml PO X1 PRN Constipation #30mL 05/26/23 [Rx Last Taken Unknown] sennosides 8.6 mg-docusate sodium 50 mg tablet (Stool Softener-Stimulant Laxative) 2 tab PO BID #1 TAB 05/26/23 [Rx Last Taken Unknown] tizanidine 2 mg capsule 2 mg PO QHS #1 cap 05/26/23 [Rx Last Taken Unknown] Allergy/AdvReac Type Severity Reaction Status Date / Time No Known Allergies Allergy Verified 05/15/23 14:47 Family History Father Heart failure Surgical History Cataract extraction status History of appendectomy History of tonsillectomy S/P ORIF (open reduction internal fixation) fracture Social History household members: none current occupational status: retired current occupation: Worked at [employer] pets and animals: Yes pets and animals: cat(s) and dog(s) Smoking Status: Current every day smoker tobacco type: cigarettes quit status: considering quitting alcohol intake: current alcohol intake frequency: 0-2 drinks per day Alcohol type: beer substance use type: does not use do you feel safe at home: Yes ROS Constitutional Constitutional: Reports weakness; Denies anorexia, change in weight, chills, fatigue, fever(s) or night sweats Eyes Eyes: Denies blurry vision, change in vision, eye pain or loss of vision ENT HEENT: Denies abnormal hearing, dysphagia, headache(s), hearing loss, nasal congestion or sore throat Cardiovascular Cardiovascular: Denies chest pain, dyspnea on exertion, edema, lightheadedness, orthopnea, palpitations, paroxysmal nocturnal dyspnea or syncope Respiratory/Chest Respiratory/Chest: Denies cough, dyspnea, shortness of breath at rest, shortnessof breath with exertion or wheezing Gastrointestinal Gastrointestinal: Denies abdominal pain, constipation, diarrhea, dyspepsia, hematemesis, hematochezia, nausea or vomiting Genitourinary Genitourinary: Denies dysuria, hematuria, nocturia, urinary frequency, urinary hesitancy, urinary incontinence or urinary urgency Musculoskeletal Musculoskeletal: Reports back pain and extremity pain; Denies joint pain, joint swelling or neck pain Neurologic Neurologic: Denies confusion, disequilibrium, dizziness, focal weakness, headache(s), paresthesias, seizures or tremor(s) Psychiatric Psychiatric: Denies anxiety, depression, homicidal ideation or suicidal ideation Endocrine Endocrinology: Denies change in body appearance, polydipsia or polyuria Hematologic/Lymphatic Hematologic/Lymphatic: Denies easy bleeding, easy bruising or lymphadenopathy Allergic/Immunologic Allergic/Immunologic: Denies rhinitis, eczemia or asthma Vital Signs Vital Signs Vital Signs: 05/28/23 15:14 Temperature 97.9 F Temperature Source Temporal Pulse Rate 72 Respiratory Rate 16 Blood Pressure 124/76 H Blood Pressure Mean 92 Pulse Ox 97 Oxygen Delivery Method Room Air Weight Weight: 174 lb 8.992 oz Body Mass Index (BMI) 25.4 Physical Exam Const alert, oriented x3 and no apparent distress Constitutional Narrative: Making good eye contact, appropriate General Appearance: cooperative and comfortable HEENT moist oral mucous membranes Neck no lymphadenopathy, supple, no JVD and no carotid bruits Resp normal respiratory effort, no use of accessory muscles and clear to auscultationbilaterally Resp Narrative: Not tachypneic and no conversational dyspnea. Cardio regular rate, regular rhythm, S1 normal heart sound, S2 normal heart sound, no murmurs, no rub and no gallops GI normal to inspection, nondistended, normoactive bowel sounds and non-tender GI Narrative: No guarding with palpation. Extremity no clubbing, cyanosis or edema Extremity Narrative: Negative Lucian's and Vasiliy's signs Skin Skin Narrative: No rashes, no skin breakdown. The incision is intact with no dehiscence, no purulent discharge and no rubio-incisional erythema. No significant swelling around the incision. Neuro oriented x3, CN's II-XII intact bilaterally and no focal motor deficits Motor Exam: strength 5/5 throughout Psych affect normal Psych Narrative: Appropriate, making good eye contact. Able to stay on topic and focus. No flight of ideas. Does not appear anxious or depressed. Conversant and relating well to staff. Results Lab / Micro Data 05/28/23 06:20 05/28/23 06:20 Assessment & Plan Assessment/Plan (1) Debility: (2) Hx of decompressive lumbar laminectomy: (3) Radicular pain of both lower extremities: (4) Acute blood loss anemia: (5) Chronic back pain: QUALIFIERS: Back pain location: low back pain Back pain laterality: midline Sciatica presence: unspecified whether sciatica present Qualified Code(s): M54.50 - Low back pain, unspecified; G89.29 - Other chronic pain (6) Essential hypertension: (7) Mixed hyperlipidemia: (8) Anxiety: (9) Vitamin D deficiency: (10) Smokes cigarettes: PLAN: Plan PLAN PT for gait stability OT for ADL's Analgesics as needed Bowel protocol Fall precautions Assess for Anxiety/Depression GI prophylaxis-patient is asymptomatic with no complaints of heartburn, nausea, vomiting or abdominal pain. DVT prophylaxis with JAKOB hose and ambulation. No pharmacologic prophylaxis for DVT per surgery. Follow up with surgery and PCP following DC from [facility] 1. Antipsychotic no [] 2. Antianxiety no [] 3. Antidepressant yes for treatment of chronic depression 4. Hypnotic no [] 5. Anticoagulant no [] 6. Antibiotic no [] 7. Diuretic no [] 8. Opioid yes for treatment of chronic back pain and acute postoperative pain. 9. Antiplatelet no [] 10. Hypoglycemic agent no [] Charges/Coding Visit Charges Inpatient E&M: 70350 SNF Init L2 05/29/23 1030 <Electronically signed by Ava Castle DO> Cosigner Signature (if applicable): CC: SCOOTER Woodson; Dr. Ava Castle DO~ Signed ADDENDUM by Dr. Aav Castle DO on 05/29/23 at 1254 Addendum Having Pain in the R sciatic notch. Will schedule Gabapentin 100 mg BID and continue 300 mg at HS. 05/29/23 1254<Electronically signed by Ava Castle DO> Cosigner Signature (if applicable): cc: SCOOTER Woodson; Dr. Ava Castle DO ~* Signed ADDENDUM by Dr. Ava Castle DO on 05/29/23 at 1458 Addendum 1. Antipsychotic no 2. Antianxiety no 3. Antidepressant yes-venlafaxine used for both chronic pain management and also for depression 4. Hypnotic no 5. Anticoagulant no -on SCDs and JAKOB hose for DVT prophylaxis 6. Antibiotic no no 7. Diuretic no 8. Opioid yes -hydrocodone and gabapentin for acute on chronic low back pain secondary to recent lumbar laminectomy and fusion 9. Antiplatelet no 10. Hypoglycemic agent no 05/29/23 1458<Electronically signed by Ava Castle DO> Cosigner Signature (if applicable): cc: SCOOTER Woodson; Dr. Ava Castle DO ~* Signed [facility] Work Phone: Consult note Author Korin Matthew [facility] June 14, 2023 10:43am Note Date/Time June 14, 2023 1 0:43am [facility] Medical Records Department [address] [place] [address] Counseling Note - Pharmacy 06/14/23 1043 MR#: [id number] Acct: [id number] Name: FILIBERTO VALDIVIA Rep #: [id number] : 1955 68 From: Korin Matthew PCP: SCOOTER Newton Sta tus:ADM TESS Y Location: [place] [address] Pharmacy [place] Med Reconciliation Pharmacy Service has performed discharge medication reconciliation for this patient. The patient's discharge medication list was reviewed for discrepancies and discrepancies were resolved. Medications at Discharge Home Medications atorvastatin 40 mg tablet 40 mg PO QHS CHOLESTEROL 05/15/23 ergocalciferol (vitamin D2) 1,250 mcg (50,000 unit) capsule 50,000 unit PO QMONTH SUPPLEMENT 05/15/23 multivitamin 1 tab PO DAILY HEALTH MAINTENACE 05/15/23 venlafaxine 75 mg capsule,extended release 24 hr (Effexor XR) 75 mg PO DAILY DEPRESSION 05/15/23 losartan 100 mg tablet (Cozaar) 100 mg PO DAILY BLOOD PRESSURE #1 TAB 05/26/23 cyclobenzaprine 5 mg tablet 5 mg PO TID PRN MUSCLE SPASMS 06/12/23 gabapentin 100 mg capsule 200 mg PO BID NERVE PAIN 06/12/23 gabapentin 100 mg capsule 300 mg PO QHS NERVE PAIN 06/12/23 hydrocodone-acetaminophen 5-325mg 5mg-325mg 1 - 2 tab PO Q6H PRN PAIN 06/12/23 magnesium hydroxide 400 mg/5 mL oral suspension 30 ml PO X1 PRN CONSTIPATION 06/12/23 sennosides 8.6 mg-docusate sodium 50 mg tablet (Stool Softener-Stimulant Laxative) 2 tab PO BID PRN STOOL SOFTENER #120 tabs 06/14/23 06/14/23 1043 <Electronically signed by Korin Matthew> Date _ Korin Matthew Cosigner Signature (if applicable): Date CC: ~ Signed [facility] Work Phone: Discharge summary Author Adán Khalil [facility] June 14, 2023 10:11am Note Date/Time June 14, 2023 1 0:09am [facility] Medical Records Department [address] [place] [id number] Transfer to [facility] MR#: [id number] Acct: [id number] Name: FILIBERTO VALDIVIA Rep #: [id number] : 1955 68 From: Adán Radford PCP: SCOOTER Newton tus:ADM TESS Certification of patient admission REQUIRED AT TIME OF ADMISSION. I CERTIFY THAT [facility] ARE REQUIRED TO BE GIVEN ON AN IN-PATIENT BASIS BECAUSE OF THE ABOVE NAMED PATIENT'S NEED FOR LONG TERM CARE ON A CONTINUING BASIS FOR THE CONDITION(S) FOR WHICH HE/SHE WAS RECEIVING IN-PATIENT HOSPITAL SERVICES PRIOR TO HIS/HER TRANSFER TO THE [facility]. 06/14/23 1011<Electronically signed by Adán Khalil MD> Diet Diet Order/Speech Therapy: 06/12/23 21:10 Diet: Cardiac - Heart Healthy Food consistency:: Regular Liquid Consistency:: Regular/Thin Routine Orders/Code Status Suppository Type: Dulcolax 10mg Suppository Frequency: Daily PRN Code Status: Full Code Therapies Weight Bearing: Weight bearing as tolerated Extremity Affected:: Bilateral Lower Physical Therapy: Eval and Treat Occupational Therapy: Eval and Treat Speech Therapy: Eval and Treat Problem/Diagnosis (1) Diarrhea: Status: Acute Code(s): R19.7 - Diarrhea, unspecified Plan The patient is a 68 y/o F with multiple comorbidities was admitted for multiple episodes of diarrhea feeling of generalized weakness for last 3 days. Denies abdominal pain. Not on antibiotics. She has chronic lower back pain with recent back surgery of hemilaminectomy in May 2023 by [facility]. #1. Adult Failure to Thrive complicated by recent back surgery as mentioned below and diarrhea: [facility] Stool for enteric pathogen is negative. Stool for C. difficile negative negative for C. difficilePCR. Her diarrhea is improving and solidifying. She is unclear but said she might have IBS.Procalcitonin negative. Abdominal exam is benign with no tenderness/distention or guarding or rigidity. #2. Diarrhea as mentioned above, improving. #3. Chronic lumbar back pain with recent history of hemilaminectomy: Patient recently had back surgery in May 2023 outside and was on rehab at [facility]CU and was discharged home on June 07, 2023. Usually gets around on wheeled walker but she felt too weak to get up. Encourage positional changes, PT/OT/case management consulted for discharge planning, maintain on fall precautions, continue gabapentin as well as patient home hydrocodone regimen. #4. Anxiety and depression: We will continue patient home venlafaxine regimen. #5. Tobacco Abuse: Encouraged cessation, inpatient consultation per RT, NR if desired. #6. Hypertension: Continue home regimen including losartan, PRN hydralazine. #7. Hyperlipidemia: We will continue patient on statin therapy. #8. DVT prophylaxis: Lovenox. #9. CODE status: Patient POLO is Beau Leach her friend and living will is currently in place. Discussed CODE status at length including difference betweenFULL code, DNR-CCA and DNR-CC status. Following discussions about the differences in these status, requested Full Code status. Allergies/Procedures Done in Hospital Allergies No Known Allergies Allergy (Verified 06/12/23 12:04) Type of Care/Length of Stay Estimated LOS: Convalescent Care Less Than 30 days Type of Care Needed: Intermediate Rehab Potential: Good Prognosis: Good Additional Orders/Day of Discharge Additional Orders: part B therapies Day of Discharge: 06/14/23 Discharge Plan Admission Admit Date/Time: 06/12/23 18:18 Primary Reason for Your Visit: Failure to thrive. Diarrhea resolved. Attending Provider: Adán Khalil Primary Care Provider: Candy Woodson WASH OIL PUMP OPERATOR HELPER Consulting Providers: Jeri Burns; Ken Lopez Discharge Orders/Prescriptions Prescriptions: Continued atorvastatin 40 mg tablet 40 mg PO QHS ergocalciferol (vitamin D2) 1,250 mcg (50,000 unit) capsule 50,000 unit PO QMONTH multivitamin Tablet 1 tab PO DAILY venlafaxine [Effexor XR] 75 mg capsule,extended release 24hr 75 mg PO DAILY losartan [Cozaar] 100 mg tablet 100 mg PO DAILY Qty: 1 0RF cyclobenzaprine 5 mg tablet 5 mg PO TID PRN (Reason: MUSCLE SPASMS) gabapentin 100 mg capsule 300 mg PO QHS Rx Instructions: TAKE TWO CAPSULES (200MG) BY MOUTH TWICE DAILY WELL THREE CAPSULES (300MG) AT BEDTIME. hydrocodone-acetaminophen 5-325 mg Tablet 1 - 2 tab PO Q6H PRN (Reason: PAIN ) Rx Instructions: TAKE ONE TABLET BY MOUTH EVERY 6 HOURS FOR A PAIN SCORE OF 3-6 AND TAKE TWO TABLETS FOR A PAIN SCORE >6 magnesium hydroxide 400 mg/5 mL Suspension 30 ml PO X1 PRN (Reason: CONSTIPATION ) gabapentin 100 mg Capsule 200 mg PO BID Rx Instructions: TAKE TWO CAPSULES (200MG) BY MOUTH TWICE DAILY WELL THREE CAPSULES (300MG) AT BEDTIME. Changed sennosides-docusate sodium [Stool Softener-Stimulant Laxat] 8.6-50 mg Tablet 2 tab PO BID PRN (Reason: STOOL SOFTENER) Qty: 120 0RF Referrals / Follow Up: Candy Woodson WASH OIL PUMP OPERATOR HELPER, WASH OIL PUMP OPERATOR HELPER-C [Primary Care Provider] - Disposition Disposition (needs filled in before D/C Order can be placed): NonSkilled NH/Intermed Care 06/14/23 1011 <Electronically signed by Adán Khalil MD> Cosigner Signature (if applicable): CC: SCOOTER Woodson; Dr. Ken Lopez, DO; Dr. Jeri Burns MD ~ [facility] Work Phone: Evaluation + Plan note Future Appointments Appointment Date:05/11/2021 09:00:00 AM Scheduled Provider:CANDY WOODSON APRN, CNP Location:[facility] [place] Appointment Type:PC OV Follow Up [facility] [employer] + Plan note Future Appointments Appointment Date:05/12/2022 10:20:00 AM Scheduled Provider:CANDY WOODSON APRN - [place] Location:[facility] [facility] [place] Appointment Type:PC OV Follow Up Future Scheduled Tests Laboratory* Microalbumin Level Urine 02/09/22 [facility] Evaluation + Plan note Future Appointments Appointment Date:11/10/2022 10:20:00 AM Scheduled Provider:CANDY WOODSON APRN - WALDO Location:[facility] [facility] [place] Appointment Type:PC OV Follow Up Future Scheduled Tests Laboratory* Lipid Profile 11/10/22 * Microalbumin Level Urine 02/09/22 * Microalbumin Level Urine 11/10/22 * Vitamin D Level 11/10/22 * Complete Metabolic Panel 11/10/22 [facility] [employer]uation + Plan note Future Appointments Appointment Date:05/09/2023 09:40:00 AM Scheduled Provider:CANDY WOODSON APRN - PUBLIC SAFETY DISPATCHER Location:[facility] [employer] [facility] [place] Appointment Type:PC OV Follow Up Future Scheduled Tests Laboratory* Complete Blood Count 05/24/23 * Lipid Profile 05/24/23 * Albumin/Creatinine Ratio, Random Urine 05/24/23 * Vitamin D Level 05/24/23 * Complete Metabolic Panel 05/24/23 [facility] [employer]uation + Plan note Future Appointments Appointment Date:10/12/2023 09:00:00 AM Scheduled Provider:CANDY WOODSON APRN - PUBLIC SAFETY DISPATCHER Location:[facility] [facility] [place] Appointment Type:PC OV Follow Up Future Scheduled Tests Laboratory* Complete Blood Count 05/24/23 * Lipid Profile 05/24/23 * Albumin/Creatinine Ratio, Random Urine 10/28/23 * Albumin/Creatinine Ratio, Random Urine 05/24/23 * Vitamin D Level 05/24/23 * Complete Metabolic Panel 05/24/23 [facility] Evaluation + Plan note Future Appointments Appointment Date:04/16/2024 10:30:00 AM Scheduled Provider: Location:[facility] Appointment Type:PT [facility] Appointment Date:04/18/2024 10:00:00 AM Scheduled Provider: Location:[facility] Appointment Type:PT [facility] Appointment Date:04/23/2024 10:30:00 AM Scheduled Provider: Location:[facility] Appointment Type:PT [facility] Appointment Date:04/23/2024 01:40:00 PM Scheduled Provider:CANDY WOODSON APRN, CNP Location:[facility] [place] Appointment Type:PC OV Follow Up Appointment Date:04/25/2024 11:00:00 AM Scheduled Provider: Location:[facility] Appointment Type:PT [facility] Appointment Date:04/30/2024 10:30:00 AM Scheduled Provider: Location:[facility] Appointment Type:PT [facility] Appointment Date:05/07/2024 10:30:00 AM Scheduled Provider: Location:[place] Appointment Type:PT [facility] Appointment Date:05/09/2024 10:30:00 AM Scheduled Provider: Location:[place] Appointment Type:[facility] Appointment Date:05/14/2024 10:30:00 AM Scheduled Provider: Location:[facility] Appointment Type:PT [facility] Future Scheduled Tests Laboratory* Lipid Profile 05/24/23 * Albumin/Creatinine Ratio, Random Urine 10/28/23 * Albumin/Creatinine Ratio, Random Urine 05/24/23 * Vitamin D Level 05/24/23 * Complete Metabolic Panel 05/24/23 Radiology* MA Mammo Diagnostic Right w/ Trav 05/04/24 * MA Mammo Diagnostic Right w/ Trav 10/13/23 * US Breast Right Complete 05/04/24 [facility] Evaluation + Plan note Future Appointments Appointment Date:04/23/2024 10:30:00 AM Scheduled Provider: Location:[facility] Appointment Type:[facility] Appointment Date:04/23/2024 01:40:00 PM Scheduled Provider:CANDY WOODSON APRN, CNP Location:[facility] [place] Appointment Type:PC OV Follow Up Appointment Date:04/25/2024 11:00:00 AM Scheduled Provider: Location:[facility] Appointment Type:PT Treatment - [place] Appointment Date:04/30/2024 10:30:00 AM Scheduled Provider: Location:[facility] Appointment Type:[facility] Appointment Date:05/07/2024 10:30:00 AM Scheduled Provider: Location:[facility] Appointment Type:[facility] Appointment Date:05/09/2024 10:30:00 AM Scheduled Provider: Location:[facility] Appointment Type:[facility] Appointment Date:05/10/2024 11:00:00 AM Scheduled Provider:MAURIZIO PENA MD Location:[facility] Appointment Type:PM OV Appointment Date:05/14/2024 10:30:00 AM Scheduled Provider: Location:[facility] Appointment Type:[facility] Future Scheduled Tests Laboratory* Lipid Profile 05/24/23 * Albumin/Creatinine Ratio, Random Urine 10/28/23 * Albumin/Creatinine Ratio, Random Urine 05/24/23 * Vitamin D Level 05/24/23 * Complete Metabolic Panel 05/24/23 Radiology* MA Mammo Diagnostic Right w/ Trav 05/04/24 * MA Mammo Diagnostic Right w/ Trav 10/13/23 * US Breast Right Complete 05/04/24 [facility] Evaluation + Plan note Future Appointments Appointment Date:05/24/2024 10:45:00 AM Scheduled Provider: Location:[facility] Pain Management Appointment Type:PM Major Joint Bursa Inj/Aspiration (AOH Appointment Date:05/27/2024 10:30:00 AM Scheduled Provider:[place] [id number] Location:[facility] Appointment Type:[facility] Appointment Date:05/30/2024 09:00:00 AM Scheduled Provider: Location:[facility] Appointment Type:[facility] Mammogram Diagnostic Right w/ Trav Appointment Date:05/30/2024 10:00:00 AM Scheduled Provider: Location:[facility] Appointment Type:US Breast Right Complete Appointment Date:06/11/2024 01:00:00 PM Scheduled Provider:CANDY WOODSON APRN - PUBLIC SAFETY DISPATCHER Location:[facility] [place] Appointment Type:PC OV Future Scheduled Tests Laboratory* Lipid Profile 10/28/24 * Lipid Profile 05/24/23 * Albumin/Creatinine Ratio, Random Urine 10/28/23 * Albumin/Creatinine Ratio, Random Urine 10/28/24 * Albumin/Creatinine Ratio, Random Urine 05/24/23 * Vitamin D Level 10/28/24 * Vitamin D Level 05/24/23 * Complete Metabolic Panel 10/28/24 * Complete Metabolic Panel 05/14/24 * Complete Metabolic Panel 05/24/23 Radiology* MA Mammo Diagnostic Right w/ Trav 05/30/24 * MA Mammo Diagnostic Right w/ Trav 10/13/23 * US Breast Right Complete 05/30/24 [facility] Evaluation + Plan note Future Appointments Appointment Date:05/27/2024 10:30:00 AM Scheduled Provider:[place] [id number] Location:[facility] Appointment Type:[facility] Appointment Date:05/30/2024 09:00:00 AM Scheduled Provider: Location:[facility] Appointment Type:[facility] Mammogram Diagnostic Right w/ Trav Appointment Date:05/30/2024 10:00:00 AM Scheduled Provider: Location:[facility] Appointment Type:US Breast Right Complete Appointment Date:06/11/2024 01:00:00 PM Scheduled Provider:CANDY WOODSON APRN - PUBLIC SAFETY DISPATCHER [facility] Appointment Type:PC OV Future Scheduled Tests Laboratory* Lipid Profile 10/28/24 * Lipid Profile 05/24/23 * Albumin/Creatinine Ratio, Random Urine 10/28/23 * Albumin/Creatinine Ratio, Random Urine 10/28/24 * Albumin/Creatinine Ratio, Random Urine 05/24/23 * Vitamin D Level 10/28/24 * Vitamin D Level 05/24/23 * Complete Metabolic Panel 10/28/24 * Complete Metabolic Panel 05/14/24 * Complete Metabolic Panel 05/24/23 Radiology* MA Mammo Diagnostic Right w/ Trav 05/30/24 * MA Mammo Diagnostic Right w/ Trav 10/13/23 * US Breast Right Complete 05/30/24 [facility] Evaluation + Plan note Future Appointments Appointment Date:06/11/2024 01:00:00 PM Scheduled Provider:CANDY WOODSON DEVELOPMENT SYSTEM EFFICIENCY MANAGER - PUBLIC SAFETY DISPATCHER Location:[facility] [place] Appointment Type:PC OV Future Scheduled Tests Laboratory* Lipid Profile 10/28/24 * Lipid Profile 05/24/23 * Albumin/Creatinine Ratio, Random Urine 10/28/23 * Albumin/Creatinine Ratio, Random Urine 10/28/24 * Albumin/Creatinine Ratio, Random Urine 05/24/23 * Vitamin D Level 10/28/24 * Vitamin D Level 05/24/23 * Complete Metabolic Panel 10/28/24 * Complete Metabolic Panel 05/14/24 * Complete Metabolic Panel 05/24/23 Radiology* MA Mammo Diagnostic Right w/ Trav 10/13/23 [facility] Evaluation + Plan note Future Appointments Appointment Date:06/18/2024 10:00:00 AM Scheduled Provider:[place] [id number] Location:[facility] Appointment Type:PT Outpatient Evaluation Appointment Date:12/10/2024 01:00:00 PM Scheduled Provider:CANDY WOODSON APRN, CNP Location:[facility] [place] Appointment Type:PC OV Future Scheduled Tests Laboratory* Lipid Profile 10/28/24 * Albumin/Creatinine Ratio, Random Urine 10/28/24 * Vitamin D Level 10/28/24 * Complete Metabolic Panel 10/28/24 Radiology* MA Mammo Diagnostic Right w/ Trav 12/09/24 * MA Mammo Diagnostic Right w/ Trav 10/13/23 * US Breast Right Complete 12/09/24 * US Breast Right Complete 06/06/24 [facility] Edfa[employer] + Plan note Future Appointments Appointment Date:12/10/2024 01:00:00 PM Scheduled Provider:CANDY WOODSON APRN, CNP Location:[facility] [place] Appointment Type:PC OV Future Scheduled Tests Laboratory* Albumin/Creatinine Ratio, Random Urine 10/28/24 Radiology* MA Mammo Diagnostic Right w/ Trav 12/09/24 * US Breast Right Complete 12/09/24 * US Breast Right Complete 06/06/24 [facility] Edfa[employer] + Plan note Future Appointments Appointment Date:06/10/2025 08:45:00 AM Scheduled Provider: [facility] Appointment Type:PC Nurse Lab Appointment Date:06/17/2025 01:00:00 PM Scheduled Provider:CANDY WOODSON APRN, CNP Location:[facility] [place] Appointment Type:PC OV Future Scheduled Tests Laboratory* Lipid Profile 06/12/25 * Albumin/Creatinine Ratio, Random Urine 10/28/24 * Albumin/Creatinine Ratio, Random Urine 06/12/25 * Vitamin D Level 06/12/25 * Complete Metabolic Panel 06/12/25 Radiology* US Breast Right Complete 06/06/24 [facility] Evaluation + Plan note Future Appointments Appointment Date:06/10/2025 08:45:00 AM Scheduled Provider: [facility] Appointment Type:PC Nurse Lab Appointment Date:06/17/2025 01:00:00 PM Scheduled Provider:CANDY WOODSON APRN, CNP Location:[facility] [place] Appointment Type:PC OV Future Scheduled Tests Laboratory* Lipid Profile 06/12/25 * Albumin/Creatinine Ratio, Random Urine 10/28/24 * Albumin/Creatinine Ratio, Random Urine 06/12/25 * Vitamin D Level 06/12/25 * Complete Metabolic Panel 06/12/25 Radiology* MA Mammo Diagnostic Bilateral w/Trav 06/29/25 * US Breast Bilateral Complete 06/29/25 * US Breast Right Complete 06/06/24 [facility] Evaluation note* Diagnosis Onset Date Resolution Status Acute blood loss anemia acut e Debility acute Hx of decompressive lumbar laminectomy acute Radicular pain of both lower extremities chronic Acute blood loss anemia acut e Debility acute Hx of decompressive lumbar laminectomy acute Radicular pain of both lower extremities chronic [facility] Work Phone: Evaluation note* Diagnosis Onset Date Resolution Status Acute blood loss anemia acut e Debility acute Hx of decompressive lumbar laminectomy acute Radicular pain of both lower extremities chronic Acute blood loss anemia acut e Debility acute Hx of decompressive lumbar laminectomy acute Radicular pain of both lower extremities chronic Adult failure to thrive acut e Debility acute Diarrhea acute Hx of decompressive lumbar laminectomy acute [facility] Work Phone: Evaluation note* Diagnosis Onset Date Resolution Status Acute blood loss anemia acut e Debility acute Hx of decompressive lumbar laminectomy acute Radicular pain of both lower extremities chronic Acute blood loss anemia acut e Debility acute Hx of decompressive lumbar laminectomy acute Radicular pain of both lower extremities chronic Adult failure to thrive acut e Debility acute Diarrhea resolved Hx of decompressive lumbar laminectomy acute [facility] Work Phone: Evaluation noteNo assessment information available [facility] Work Phone: Hospital course Narrative No data available for this section [facility] Hospital Discharge instructions No data available for this section [facility] Progress note No data available for this section [facility] Reason for referral (narrative)No reason for referral information [facility] Work Phone: Summary Purpose Family History No Family History Records Found Relationship Condition Age at Onset Recorded Date/T sarah father Heart failure Unknown Relationship Condition Age at Onset Recorded Date/T sarah father Heart failure Unknown mother Kidney disorder Unknown Alzheimer's disease Unknown Advance Directives No Advanced Directives Records Found Advance Directive Response Recorded Date/ Time Name of Medical Power of Display Designer Alysia Moctezuma May 16, 2023 11:54am Name of Medical Power of Display Designer MARIBEL Snider, in safe at home May 30, 2023 1:53pm Living Will Yes May 30 023 1:53pm Power of Display Designer Yes May 30, 2023 1:53pm Advance Directive Response Recorded Date/ Time Name of Medical Power of Display Designer Alysia Moctezuma May 16, 2023 11:54am Name of Medical Power of Display Designer BEAU LEACH June 12, 2023 12:38pm Living Will Yes June 12 12:38pm Power of Display Designer Yes June 12 024 12:38pm Name of Medical Power of Display Designer MARIBEL Snider, in safe at home May 30, 2023 1:53pm Advance Directive Response Recorded Date/ Time Name of Medical Power of Display Designer Alysia Moctezuma May 16, 2023 11:54am Name of Medical Power of Display Designer beau leach June 12, 2023 9:16pm Living Will Yes June 12 9:16pm Power of Display Designer Yes June 12 9:16pm Name of Medical Power of Display Designer MARIBEL Snider, in safe at home May 30, 2023 1:53pm Chief Complaint and Reason for Visit Chief Complaint PFIZER VACCINE Chief Complaint Lumbar laminectomy a nd fusion LAMINECTOMY LAMINECTOMY LAMINECTOMY LAMINECTOMY LAMINECTOMY LAMINECTOMY LAMINECTOMY LAMINECTOMY LAMINECTOMY LAMINECTOMY LAMINECTOMY Reason for Visit Acute blood loss ane matthew Debility Hx of decompressive lumbar laminectomy Radicular pain of both lower extremities Acute blood loss anemia Debility Hx of decompressive lumbar laminectomy Radicular pain of both lower extremities Chief Complaint Lumbar laminectomy a nd fusion LAMINECTOMY LAMINECTOMY LAMINECTOMY LAMINECTOMY LAMINECTOMY LAMINECTOMY LAMINECTOMY LAMINECTOMY LAMINECTOMY LAMINECTOMY LAMINECTOMY sob sob Reason for Visit Acute blood loss ane matthew Debility Hx of decompressive lumbar laminectomy Radicular pain of both lower extremities Acute blood loss anemia Debility Hx of decompressive lumbar laminectomy Radicular pain of both lower extremities Adult failure to thrive Debility Diarrhea Hx of decompressive lumbar laminectomy Chief Complaint Lumbar laminectomy a nd fusion LAMINECTOMY LAMINECTOMY LAMINECTOMY LAMINECTOMY LAMINECTOMY LAMINECTOMY LAMINECTOMY LAMINECTOMY LAMINECTOMY LAMINECTOMY LAMINECTOMY sob ADULT FTT, DIARRHEA ADULT FTT, DIARRHEA ADULT FTT, DIARRHEA Reason for Visit Acute blood loss ane matthew Debility Hx of decompressive lumbar laminectomy Radicular pain of both lower extremities Acute blood loss anemia Debility Hx of decompressive lumbar laminectomy Radicular pain of both lower extremities Adult failure to thrive Debility Diarrhea Hx of decompressive lumbar laminectomy Chief Complaint Lumbar laminectomy a nd fusion LAMINECTOMY LAMINECTOMY LAMINECTOMY LAMINECTOMY LAMINECTOMY LAMINECTOMY LAMINECTOMY LAMINECTOMY LAMINECTOMY LAMINECTOMY LAMINECTOMY sob ADULT FTT, DIARRHEA ADULT FTT, DIARRHEA ADULT FTT, DIARRHEA 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 Reason for Visit Acute blood loss ane matthew Debility Hx of decompressive lumbar laminectomy Radicular pain of both lower extremities Acute blood loss anemia Debility Hx of decompressive lumbar laminectomy Radicular pain of both lower extremities Adult failure to thrive Debility Diarrhea Hx of decompressive lumbar laminectomy Chief Complaint Lumbar laminectomy a nd fusion LAMINECTOMY LAMINECTOMY LAMINECTOMY LAMINECTOMY LAMINECTOMY LAMINECTOMY LAMINECTOMY LAMINECTOMY LAMINECTOMY LAMINECTOMY LAMINECTOMY sob ADULT FTT, DIARRHEA ADULT FTT, DIARRHEA ADULT FTT, DIARRHEA 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 Reason for Visit Acute blood loss ane matthew Debility Hx of decompressive lumbar laminectomy Radicular pain of both lower extremities Acute blood loss anemia Debility Hx of decompressive lumbar laminectomy Radicular pain of both lower extremities Adult failure to thrive Debility Diarrhea Hx of decompressive lumbar laminectomy Chief Complaint Admit Date LUMBAR RADICULOPATHY August 19, 2024 11 :39am Assessments No Assessments Information Available Additional Source Comments INFORMATION SOURCE (unrecogn ized section and content) DATE CREATED AUTHOR 11/29/2017 [facility] DATE CREATED AUTHOR AUTHOR'S ORGANIZ ATION 10/07/2023 [facility] ([place]) DATE CREATED AUTHOR AUTHOR'S ORGANIZ ATION 07/20/2024 [facility] DATE CREATED AUTHOR AUTHOR'S ORGANIZ ATION 08/29/2024 [facility] DATE CREATED AUTHOR AUTHOR'S ORGANIZ ATION 04/13/2025 [facility] Care Team (unrecognized sect ion and content) Care Team Personnel Name: CANDY WOODSON APRN PUBLIC SAFETY DISPATCHER Position: P4 Advanced Practice Nurse Member Role: Primary Care Physician Address: Address: [address] [place] [address] Care Team Related Persons Name: BEAU LEACH Care Team Personnel Name: CANDY WOODSON APRN PUBLIC SAFETY DISPATCHER Position: P4 Advanced Practice Nurse Member Role: Primary Care Physician Address: Address: [address] [place] [address] Care Team Related Persons Name: BEAU LEACH Patient Care team informatio n (unrecognized section and content) Team Status: Active Member Role Status Dates Dr. Kwan Rivera MD Family Provider Active Candy Woodson WASH OIL PUMP OPERATOR HELPER, WASH OIL PUMP OPERATOR HELPER-C Primary Care Provider Active Team Status: Active Member Role Status Dates Candy Woodson WASH OIL PUMP OPERATOR HELPER, WASH OIL PUMP OPERATOR HELPER-C Primary Care Provider Active Dr. Mavis Vásquez , Admit Provider, Other Provider Ac tive Dr. Evonne Bishop MD Attending Provider Active Team Status: Active Member Role Status Dates Candy Woodson WASH OIL PUMP OPERATOR HELPER, WASH OIL PUMP OPERATOR HELPER-C Primary Care Provider Active Dr. Mavis Vásquez , DO Admit Provider Active Dr. Evonne Bishop MD Attending Provider, Other Prov ider Active Dr. Kwan Lai MD Other Provider Active Team Status: Active Member Role Status Dates Candy Woodson WASH OIL PUMP OPERATOR HELPER, WASH OIL PUMP OPERATOR HELPER-C Primary Care Provider Active Dr. Mavis Vásquez , DO Admit Provider Active Dr. Kwan Lai MD Other Provider Active Dr. Ava Castle , DO Attending Provider, Ot her Provider Active Team Status: Active Member Role Status Dates Candy Woodson WASH OIL PUMP OPERATOR HELPER, WASH OIL PUMP OPERATOR HELPER-C Primary Care Provider Active Dr. Larry Kent MD Admit Provider, Other Provider A ctive Dr. Ava Castle , DO Attending Provider Act francisca Team Status: Inactive Member Role Status Dates Candy Woodson WASH OIL PUMP OPERATOR HELPER, WASH OIL PUMP OPERATOR HELPER-C Primary Care Provider Active Dr. Mavis Vásquez , DO Admit Provider Active Dr. Kwan Lai MD Other Provider Active Dr. Ava Castle , DO Attending Provider Act francisca Team Status: Inactive Member Role Status Dates Candy Woodson WASH OIL PUMP OPERATOR HELPER, WASH OIL PUMP OPERATOR HELPER-C Primary Care Provider Active Dr. Larry Kent MD Admit Provider, Attending Provid er Active Team Status: Active Member Role Status Dates Candy Woodson WASH OIL PUMP OPERATOR HELPER, WASH OIL PUMP OPERATOR HELPER-C Primary Care Provider Active Dr. Ash Geller , DO Emergency Provider Active Dr. Jeri Burns MD Attending Provider Active Team Status: Active Member Role Status Dates Candy Woodson WASH OIL PUMP OPERATOR HELPER, WASH OIL PUMP OPERATOR HELPER-C Primary Care Provider Active Dr. Ash Geller , DO Emergency Provider Active Dr. Jeri Burns MD Admit Provider, Attending Prov ider Active Team Status: Active Member Role Status Dates Candy Woodson WASH OIL PUMP OPERATOR HELPER, WASH OIL PUMP OPERATOR HELPER-C Primary Care Provider Active Dr. Ash Geller , DO Emergency Provider Active Dr. Jeri Burns MD Admit Provider, Other Provider Active Dr. Adán Khalil MD Attending Provider, Other Provi melissa Active Dr. Ken Lopez , DO Other Provider Active Team Status: Inactive Member Role Status Dates Candy Woodson WASH OIL PUMP OPERATOR HELPER, WASH OIL PUMP OPERATOR HELPER-C Primary Care Provider Active Dr. Ash Geller , DO Emergency Provider Active Dr. Jeri Burns MD Admit Provider, Other Provider Active Dr. Adán Khalil MD Attending Provider Active Dr. Ken Lopez DO Other Provider Active Team Status: Inactive Member Role Status Dates Candy Woodson WASH OIL PUMP OPERATOR HELPER, WASH OIL PUMP OPERATOR HELPER-C Primary Care Provider Active Jessica AVILES MD Attending Provider Active Team Status: Active Member Role Status Dates Candy Woodson WASH OIL PUMP OPERATOR HELPER, WASH OIL PUMP OPERATOR HELPER-C Primary Care Provider Active Jessica AVILES MD Attending Provider Active Team Status: Active Member Role Status Dates Candy Woodson WASH OIL PUMP OPERATOR HELPER, WASH OIL PUMP OPERATOR HELPER-C Primary Care Provider Active Team Status: Inactive Member Role Status Dates Candy Woodson WASH OIL PUMP OPERATOR HELPER, WASH OIL PUMP OPERATOR HELPER-C Primary Care Provider Active Start: August 19, 2024 End: August 19, 2024 Danielle Castillo PA-C Attending Provider Active Start: August 19, 2024 End: August 19, 2024 Danielle Castillo PA-C Referring Provider Active Start: August 19, 2024 End: August 19, 2024 Dr. Yaniv Pitts MD Other Provider Active Start: August 19, 2024 End: August 19, 2024 Goals (unrecognized section and content) Goals may be documented in a n alternate section FOR RECORDS PERTAINING TO PATIENTS WHO ARE [...] BE BASED ON THE PRIMARY CLINICAL RECORDS. [employer] provides no warranty or guarantee of the accuracy or completeness of information in this document.
--- NOTE | 2025-04-22 10:13 | PCM.CONS.C ---
Assessment & Plan Assessment/Plan (1) ST elevation myocardial infarction (STEMI) of anterior wall: PLAN: Emergent coronary angiography was performed. It showed total occlusion of the proximal LAD. Successful percutaneous revascularization was performed with balloon angioplasty, aspiration thrombectomy and placement of a 3.5 x 38 mm [place] drug-eluting stent. Excellent results were noted with denominational of EDSON-3 flow. Continue aspirin lifelong. P2 Y12 treatment for at least 6 months. (2) Coronary artery disease: PLAN: Patient is noted to have severe disease in the left circumflex and obtuse marginal branch. Will consider staged PCI as outpatient. (3) Ischemic cardiomyopathy: PLAN: Beta-blockers, ACEI, spironolactone, SGLT2 inhibitors. (4) Hypertension: PLAN: Beta-blockers and ACEI. (5) Dyslipidemia: PLAN: Atorvastatin. HPI Consult Data Date of Consult: 04/22/25 HPI Narrative Reason for Consultation: Acute anterior ST elevation myocardial infarction HPI Narrative: 70-year-old female with past medical history significant for hypertension and dyslipidemia. She developed anterior chest discomfort around 5:30 AM this morning. EMS was called. An ECG was done in the field. It showed changes consistent with acute anterior ST elevation myocardial infarction. Subsequently a STEMI alert was called. [facility] Medical History COVID Migraine Basal cell carcinoma IBS (irritable bowel syndrome) Smokes cigarettes Vitamin D deficiency Anxiety Mixed hyperlipidemia Essential hypertension Chronic back pain Scoliosis Endometriosis Smoker GERD (gastroesophageal reflux disease) Home Medications ?Medication ?Instructions ?Recorded ?Last Taken ?Type atorvastatin 40 mg tablet 40 mg PO QHS CHOLESTEROL 05/15/23 Unknown History ergocalciferol (vitamin D2) 1,250 50,000 unit PO QMONTH SUPPLEMENT 05/15/23 05/09/23 History mcg (50,000 unit) capsule venlafaxine 75 mg capsule,extended 75 mg PO DAILY DEPRESSION 05/15/23 Unknown History release 24 hr (Effexor XR) losartan 100 mg tablet (Cozaar) 100 mg PO DAILY BLOOD PRESSURE #1 05/26/23 Unknown Rx TAB cyclobenzaprine 5 mg tablet 5 mg PO TID PRN MUSCLE SPASMS 06/12/23 Unknown History magnesium hydroxide 400 mg/5 mL 30 ml PO X1 PRN CONSTIPATION 06/12/23 Unknown History oral suspension metoprolol succinate 25 mg 25 mg PO DAILY heart 04/22/25 Unknown History tablet,extended release 24 hr Allergy/AdvReac Type Severity Reaction Status Date / Time No Known Allergies Allergy Verified 04/22/25 09:00 Family History Father Heart failure Mother Kidney disease Alzheimer disease Surgical History History of hemilaminectomy Cataract extraction status S/P ORIF (open reduction internal fixation) fracture History of tonsillectomy History of appendectomy Social History household members: none current occupational status: retired current occupation: Worked at [email or web address] pets and animals: Yes pets and animals: cat(s) and dog(s) Smoking Status: Current some day smoker tobacco type: cigarettes quit status: considering quitting alcohol intake: current alcohol intake frequency: 0-2 drinks per day Alcohol type: beer substance use type: does not use do you feel safe at home: Yes Physical Exam Narrative Mildly anxious. Heart sounds 1 and 2 noted. Chest clear to auscultation bilaterally. Alert oriented x 3. No ankle edema. Objective Data Vital Signs: Vital Signs Temp Pulse Resp BP Pulse Ox 98.1 F 71 18 170/108 H 93 04/22/25 08:57 04/22/25 08:57 04/22/25 08:57 04/22/25 08:57 04/22/25 08:57 Lab / Micro Data 04/22/25 08:48 04/22/25 08:48 Labs: Laboratory Results - last 24 hr 04/22/25 08:48: WBC 9.2, RBC 4.57, Hgb 14.1, Hct 42.0, MCV 91.9, MCH 30.9, MCHC 33.6, RDW Std Deviation 40.9, RDW Coeff of Lizzy 12.0, Plt Count 316, MPV 10.0, Immature Gran % (Auto) 0.400, Neut % (Auto) 70.7 H, Lymph % (Auto) 20.6, [place] % (Auto) 7.1, Eos % (Auto) 1.0, Baso % (Auto) 0.2, Absolute Neuts (auto) 6.5, Absolute Lymphs (auto) 1.89, Nucleated RBC % 0, PT 13.6, INR 1.0, APTT 26.8, Sodium 139, Potassium 4.7, Chloride 104, Carbon Dioxide 21.6, Anion Gap 14, BUN 21 H, Creatinine 0.86, Est GFR (MDRD) Non-Af 72, BUN/Creatinine Ratio 24.2 H, Glucose 147 H, Calcium 9.4, Troponin T High Sens 156 H* Cardiology Labs/Tests 04/22/25 08:48: WBC 9.2, RBC 4.57, Hgb 14.1, Hct 42.0, MCV 91.9, MCH 30.9, MCHC 33.6, Plt Count 316, MPV 10.0, Immature Gran % (Auto) 0.400, Neut % (Auto) 70.7 H, Lymph % (Auto) 20.6, [place] % (Auto) 7.1, Eos % (Auto) 1.0, Baso % (Auto) 0.2, Absolute Neuts (auto) 6.5, Nucleated RBC % 0, PT 13.6, INR 1.0, APTT 26.8, Sodium 139, Potassium 4.7, Chloride 104, Carbon Dioxide 21.6, Anion Gap 14, BUN 21 H, Creatinine 0.86, Est GFR (MDRD) Non-Af 72, BUN/Creatinine Ratio 24.2 H, Glucose 147 H, Calcium 9.4 Rhythm: EKG: ECHO: Stress Test: Cardiac Cath: PCI: CT Surgery: Holter monitor: EPS: PPM: CXR: Chest CT Scan: EDSON Risk Score for UA/STEMI Assesmment (YES = 1) Risk Stratification Applicable: No
--- NOTE | 2025-04-22 10:30 | EKG12_ITS ---
Test Reason : post heart cath Blood Pressure : */* mmHG Vent. Rate : 59 BPM Atrial Rate : 59 BPM P-R Int : 134 ms QRS Dur : 84 ms QT Int : 482 ms P-R-T Axes : 17 62 68 degrees QTcB Int : 477 ms Sinus bradycardia Septal infarct , age undetermined Abnormal ECG No previous ECGs available Confirmed by NEVAEH MENDEZ, ARBEN ([id number]), acquisition editor XAVI AMARAL ([id number]) on 04/24/2025 6:31:49 AM Referred By: Sonya Longo Confirmed By: ARBEN HERRING MD
--- NOTE | 2025-04-22 10:44 | CL.I_ITS ---
Patient Name: FILIBERTO VALDIVIA Study Date: 04/22/2025 Performing: Sonya Longo MD Ht: 69 inches 175.26 cm : 1955 Wt: 182.2 lbs 82.55 kg Age: 70 Gender: female BSA: 1.98 PROCEDURE(S) PERFORMED DC01-(24453)LHC/COR/LV IC16-([id number])AMI, KAMAR OR PTCA, ARTERY/GRAFT, SINGLE VESSEL IC17-(26114)CORONARY MECHANICAL THROMBECTOMY (ANGIOJET,PENUMBRA) CLINICAL PROFILE AND CO-MORBIDITIES Indications: ACS <= 24 hrs Heart Failure: None CAD Presentations: STEMI. Symptom onset Date/Time: 04/22/2025 Time 5:30 am CONCLUSIONS Right Raidial Artery loop (straightened with 0.14 wire 100% Prox LAD 70% Mid LCX, 80% Prox OM1 50% Prox RCA LVEF 35% Successful Aspiration Thrombectomy/PTCA/KAMAR using [place] 3.5x38 mm RECOMMENDATIONS ASA Indefinitley P2Y12 inhibitors for atleast 6 months Staged PCI to LCX/OM DESCRIPTION OF PROCEDURE The patient arrived to the procedure lab. The risks and benefits of the procedure as well as a full description of our services here and lack of surgical backup were fully explained to the patient and/or their significant other prior to the catheterization. The Timeout was completed, verifying the correct patient and procedure. The patient's procedural site was prepped and draped in the usual fashion. Local anesthetic was given subcutaneously to right radial region with Lidocaine 2%. Using a modified Seldinger technique, arterial access was obtained via the right radial artery, a 6Fr sheath was inserted.. Left Coronary Artery selective angiography was performed in multiple views using a 5 Fr.. Right Coronary Artery selective angiography was then performed in multiple views using a 5 Fr. JR 4 catheterThe images were reviewed and options discussed. A decision was then made to proceed with an Intervention, IVUS or other adjunct procedure. xb3 Guide catheter was inserted and engaged into the LCA. runthrough Guide wire was advanced to the LAD. emerge 2.5 x 15 Balloon catheter was advanced across lesion in the LAD, proximal. PTCA balloon inflated at 6 atms for 5 secs. Angiogram performed post balloon dilatation. evie 3.5 x 38 Drug Eluting stent was advanced across the lesion in the LAD, proximal. Angiogram performed post stent deployment. runthrough Guide wire was advanced to the LAD. nc emerge 3.5 x 8 Balloon catheter was inserted post stent. Angiogram performed post balloon dilatation. The arterial sheath was pulled and a TR Band was applied for hemostasis CORONARY ANGIOGRAPHY DOMINANCE: Right Dominant LEFT HEART ASSESSMENT Left Ventricular Ejection Fraction: by LV Gram 35 % LVEDP: 28 mmHg Apical Dyskinesis LEFT MAIN: Angiographically normal LEFT ANTERIOR DESCENDING ARTERY: LAD: Complex 100% Proximal lesion in LAD OM 1: Tubular 80% Proximal lesion in MARG1 OM 2: Tubular 80% Proximal lesion in MARG1 RIGHT CORONARY ARTERY: RCA: Tubular 50% Proximal lesion in RCA INTERVENTION INFORMATION LESION SITE: LAD (Proximal) Lesion Complexity: High/C, thrombus present: Yes, lesion length: 36 mm, culprit lesion: Yes, In-stent restenosis: No Pre Stenosis: 100 % Pre intervention EDSON flow: 0 PROCEDURE: Aspiration Thrombectomy, Drug Eluting Stent with pre and post dilatation Post Stenosis: 0 % Post intervention EDSON flow: 3 Lesion Devices: Cordis 6 Fr XB3.0 100cm Guide Catheter Biodel 3.5 x 38 EVIE FRONTIER KAMAR Andrade Sci NC EMERGE MR 3.50x20 BALLOON Andrade Sci EMERGE MR 3.00x15 BALLOON Penumbra Penumbra engine canister Penumbra Indigo Penumbra CAT Rx 140cm large lumen Andrade Sci .014 182cm Choice Xtra Support wire Andrade Sci NC EMERGE MR 3.50x08 BALLOON COMPLICATIONS No Complications PROCEDURE MEDICATIONS Versed 2 mg IV Fentanyl 50 mcg IV Oxygen: 2 L/min via nasal cannula Amiodarone 150 mg/min @ 04/22/2025 09:16:34 Heparin 2000 unit(s) IV 04/22/2025 09:06:13 Heparin 2000 unit(s) IV 04/22/2025 09:06:13 Heparin 1000 unit(s) IV 04/22/2025 10:03:02 Verapamil 2.5mg, Ntg 200mcgs, given IA 04/22/2025 09:02:31 SUMMARY OF HEMODYNAMIC DATA Time AIR REST ECG 08:55:40 AO 170/106 (129) SA 09:06:31 LV 113/16, 25 09:59:13 LV 122/29, 36 09:59:39 LVp 127/22, 34 10:00:18 AOp 125/82 (102) 10:00:25 Signed By Sonya Longo MD On 04/22/2025 11:06:12 Sonya Longo MD
--- NOTE | 2025-04-22 11:14 | ECQM.STEMI ---
STEMI STEMI ED Door Time / Other REG STEMI EKG Time (1) Acute AL, anterolateral wall, initial episode of care: Acute 04/22/25 08:47 Balloon/Aspiration Date-Time Date of Balloon/Aspiration:: 04/22/25 Time of Balloon/Aspiration:: 09:13
[2025-04-22] MEDS: 0.9% Normal Saline (1000mL) 1,000 ML 75 ML IV (11:15)
--- NOTE | 2025-04-22 11:48 | HP.PCM.HOS_ITS ---
HPI - General General Date of Admission: 04/22/25 Date of Service: 04/22/25 Chief Complaint: chest pain. HPI Narrative FILIBERTO CORMIER, is a 70 F who presents with chest pain. Chest pain was midsternal, non-radiating. [place] like her reflux, but did not help with water. She presented to the ED and was found to have a STEMI. 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 She had 100% occlusion to the LAD and had stent placed. Afterwards, she felt better. Never had chest pain like this before. [ ] [facility] Medical History COVID Migraine Basal cell carcinoma IBS (irritable bowel syndrome) Smokes cigarettes Vitamin D deficiency Anxiety Mixed hyperlipidemia Essential hypertension Chronic back pain Scoliosis Endometriosis Smoker GERD (gastroesophageal reflux disease) Medical History unable to obtain Home Medications ?Medication ?Instructions ?Recorded ?Last Taken ?Type atorvastatin 40 mg tablet 40 mg PO QHS CHOLESTEROL 04/27 Unknown History ergocalciferol (vitamin D2) 1,250 50,000 unit PO QMONT H SUPPLEMENT 05/15/23 05/09/23 History mcg (50,000 unit) capsule venlafaxine 75 mg capsule,extended 75 mg PO DAILY DEPR ESSION 05/15/23 Unknown History release 24 hr (Effexor XR) cyclobenzaprine 5 mg tablet 5 mg PO TID PRN MUSCLE SPA SMS 06/12/23 Unknown History Held on 04/22/25. Instructions: Order Changed dorzolamide 22.3 mg-timolol 6.8 1 drp ophthalmic (eye) BID dr 04/22/25 Unknown History mg/mL eye drops ordered meloxicam 15 mg tablet 15 mg PO DAILY doctor prescr ibed 04/22/25 Unknown History metoprolol succinate 25 mg 25 mg PO DAILY heart Unknown History tablet,extended release 24 hr ramipril 10 mg capsule [address] ordered Unknown History vitamins A,C,T-kccq-bemlcr 2,[address] order ed 04/22/25 Unknown History mcg-113 mg-45 mg-17.4 mg tablet (Eye Multivitamin) Allergy/AdvReac Type Severity Reaction Status Date / Time No Known Allergies Allergy Verified 04/22/25 09:00 Family History Father Heart failure Mother Kidney disease Alzheimer disease Family History unable to obtain Surgical History History of hemilaminectomy Cataract extraction status S/P ORIF (open reduction internal fixation) fracture History of tonsillectomy History of appendectomy Surgical History unable to obtain Social History household members: none current occupational status: retired current occupation: Worked at [employer] pets and animals: Yes pets and animals: cat(s) and dog(s) Smoking Status: Current some day smoker tobacco type: cigarettes quit status: considering quitting alcohol intake: current alcohol intake frequency: 0-2 drinks per day Alcohol type: beer substance use type: does not use do you feel safe at home: Yes ROS ROS Narrative All review of systems were negative except as mentioned above in the history of present illness and the other review of systems. Vital Signs Vital Signs Vital Signs: 04/22/25 08:48 04/22/25 08:49 04/22/25 08:57 Temperature -17.7 C L 36.7 C Temperature Source Oral Pulse Rate 71 Respiratory Rate 18 18 Blood Pressure 170/108 H 170/108 H Blood Pressure Mean 128 Blood Pressure Source Blood Pressure Position Blood Pressure Location Pulse Ox 93 Oxygen Delivery Method Oxygen Flow Rate (L/min) 04/22/25 10:30 04/22/25 10:45 04/22/25 11:00 Temperature Temperature Source Pulse Rate 60 66 62 Respiratory Rate 16 18 22 H Blood Pressure 87/62 L 106/65 116/65 Blood Pressure Mean 70 78 82 Blood Pressure Source Monitor Monitor Monitor Blood Pressure Position Semi-Fowlers Semi-Fowlers Semi-Fowlers Blood Pressure Location Left Arm Left Arm Left Arm Pulse Ox 94 94 92 Oxygen Delivery Method Room Air Room Air Room Air Oxygen Flow Rate (L/min) 04/22/25 11:15 04/22/25 11:30 04/22/25 11:45 Temperature Temperature Source Pulse Rate 56 L 58 L 52 L Respiratory Rate 13 15 16 Blood Pressure 111/66 104/83 H 111/65 Blood Pressure Mean 81 90 80 Blood Pressure Source Monitor Monitor Monitor Blood Pressure Position Semi-Fowlers Semi-Fowlers Semi-Fowlers Blood Pressure Location Left Arm Left Arm Left Arm Pulse Ox 99 99 100 Oxygen Delivery Method Nasal Cannula Nasal Cannula Nasal Cannula Oxygen Flow Rate (L/min) 2 2 2 Weight Weight: 82 kg Body Mass Index (BMI) 26.7 Physical Exam Const alert and no apparent distress HEENT normocephalic and head/scalp atraumatic Resp normal respiratory effort, no retractions, no use of accessory muscles and clear to auscultation bilaterally Cardio regular rate, regular rhythm, S1 normal heart sound and S2 normal heart sound GI normal to inspection, nondistended, normoactive bowel sounds, soft to palpation, non-tender and non-distended Extremity normal to inspection and full ROM Neuro Sensorium / Orientation: awake and alert Psych affect normal Results Lab / Micro Data Attestation: I reviewed the patient's lab results. 04/22/25 08:48 04/22/25 08:48 Labs: Laboratory Results - last 24 hr 04/22/25 08:48: WBC 9.2, RBC 4.57, Hgb 14.1, Hct 42.0, MCV 91.9, MCH 30.9, MCHC 33.6, RDW Std Deviation 40.9, RDW Coeff of Lizzy 12.0, Plt Count 316, MPV 10.0, Immature Gran % (Auto) 0.400, Neut % (Auto) 70.7 H, Lymph % (Auto) 20.6, [place] % (Auto) 7.1, Eos % (Auto) 1.0, Baso % (Auto) 0.2, Absolute Neuts (auto) 6.5, Absolute Lymphs (auto) 1.89, Nucleated RBC % 0, PT 13.6, INR 1.0, APTT 26.8, Sodium 139, Potassium 4.7, Chloride 104, Carbon Dioxide 21.6, Anion Gap 14, BUN 21 H, Creatinine 0.86, Est GFR (MDRD) Non-Af 72, BUN/Creatinine Ratio 24.2 H, G lucose 147 H, Calcium 9.4, Troponin T High Sens 156 H* Assessment & Plan Assessment/Plan (1) ST elevation myocardial infarction (STEMI) of anterior wall: PLAN: s/p PCI to LAD. on ASA, Ticagrelo, carveidlol, lisinoppril, atorvastatin, empagliflozin, spironolactone follow up echo. PLAN: Plan cardiomyopathy: ischemic. meds as above. depression: venlafaxine VTE prophylaxis: LMWH. code status: full. Charges/Coding Visit Charges Inpatient E&M: 19985 Init Hosp L2
--- NOTE | 2025-04-22 13:47 | CASEMGMT ---
Social Work Pt informed SW that her HCPOA is her friend Phylicia Quiñonez listed in the demographics. She states Phylicia does not have a copy, and her copy is in her safe at home. She states that [facility] office would have them also if needed. SW reviewed chart in [employer], message left for medical records that the wrong HCPOA and LW are scanned into her chart. [facility] Alejandro
[2025-04-22 13:52] LABS: ACT Activated Clotting Time 250 sec (74-137)
[2025-04-22 13:52] LABS: ACT Activated Clotting Time 235 sec (74-137)
[2025-04-22 14:46] LABS: Cholesterol 174 mg/dL (<=200); Low Density Lipoprotein Calc. 97 mg/dL; Triglycerides 180 mg/dL; Very Low Density Lipoprotein 36 mg/dL (5-40); cholesterol:hdl ratio screen 3.82
--- NOTE | 2025-04-22 15:10 | CRPHASE1 ---
Patient Communication Patient Information Former Patient:: Phase I PHII Cardiac Rehab Discussed with Patient:: Yes Guide to Cardiac Rehab Given to Patient:: Yes Cardiac Rehab Facility Choice List Given to Patient:: Yes Communication to Cardiac Rehab Choice Program [facility] CR PHII:: Communication Given to CR and Refer to [facility] Choice Program Other:: Communication Given to CR Stem Setter:: Sonya Longo Phase II Cardiac Rehab:: Yes Sessions:: 36 sessions - 3 days/wk, 12 weeks Post Discharge Choice Letter Given to Patient:: Yes Guide to Cardiac Rehab Given by ICU Staff Prior to Discharge:: Yes PHII Cardiac Rehab Referral:: [facility] Phase I Charge:: Level I - Education Medical/Surgical History Medical History [place]:: Yes Angina:: Yes Cardiomyopathy:: Yes Hypertension:: Yes Dyslipidemia:: Yes CVA/TIA: Surgical History PTCA:: Yes Ambulation Ambulation Notes:: WALKS INDEPENDENTLY Cardiac Rehabilitation Info Program Information Cardiac Rehabilitation Program Information: Cardiac Rehab The cardiac rehab team at [facility] consists of highly skilled exercise physiologists, nurses, respiratory therapists and physicians working together with you. Our purpose is to help you have a full recovery and achieve the goals you set for yourself. Over the years many of our patients have returned to activities they assumed they would never do again! We can help restore your confidence and motivation to make lifestyle changes that can have a significant impact on your health and quality of life! We can help answer questions and concerns you may have about exercise, lifestyle, medications, diet, stress and anxiety which are common following a hospitalization. WE monitor ECG and vital signs during exercise and discuss your progress with you and report to your physician(s). Cardiac Rehab is proven to help reduce readmissions, improve functional capacity and lower recurrence of problems with your heart. Our Cardiac Rehab program is Certified by the [place] Association of Cardio-Vascular and Pulmonary Rehabilitation (AACVPR) and Accredited by the [place] [employer] of [employer] through our [facility]. You can contact us at . We invite you to call us with your questions or to get started in our program. If you have other questions or concerns be sure to ask your physician/provider during your follow-up visit. WE look forward to seeing you!
--- NOTE | 2025-04-22 15:12 | CRPH1.INSTRU ---
General Education Discussed with Patient CAD and cardiac anatomy and function:: Patient communicates acknowledgment Explanation of diagnoses and procedures:: Patient communicates acknowledgment Sign/Symptoms of AK:: Patient communicates acknowledgment Antiplatelet therapy: Patient communicates acknowledgment Proper use of NTG-SL: Patient communicates acknowledgment Emergency procedures and activation of EMS: Patient communicates acknowledgment Compliance of all prescribed medications: Patient communicates acknowledgment Smoking Risk Factors Patient Nicotine/Smoking Risk Factors Are:: Never smoked Response Code Nicotine/Smoking Response Code:: Not instructed Dyslipidemia Recommendations Recommendations Include:: Lipid profile not available Response Code Dyslipidemia Response Code:: Not instructed Overweight/Obesity Risk Factors Patient Overweight/Obesity Risk Factors Are:: Overweight = 26-29 (26.8) Recommendations Recommendations Include:: Weight loss of 5-10%, Reduced calorie diet and Exercise 5-7 times/week Response Code Overweight/Obesity:: Patient communicates acknowledgment Hypertension Recommendations Recommendations Include:: Maintain BP <130/85, DASH dietary guidelines and Decrease/maintain normal body weight Response Code Hypertension:: Patient communicates acknowledgment Heart Disease Risk Factors Patient Heart Disease Risk Factors Are:: Family history of heart disease < 65 years old Response Code Heart Disease Response Code:: Patient communicates acknowledgment Diabetes Risk Factors Patient Diabetes Risk Factors Are:: No documented hx of diabetes Response Code Diabetes:: Not instructed Metabolic Syndrome Risk Factors Patient Metabolic Syndrome Risk Factors Are [3 of 5]:: Hypertension Recommendations Recommendations Include:: Encouraged follow-up with Primary Care Physician Response Code Metabolic Syndrome Response Code:: Patient communicates acknowledgment Sedentary Risk Factors Patient Sedentary Risk Factors Are:: Lack of regular exercise Recommendations Recommendations Include:: Aerobic exercise 5-7 times/week for 20-30 minutes continuously, Benefits of regular exercise, Discussed home walking program and Monitored Outpatient Cardiac Rehab Response Code Sedentary Response Code:: Patient communicates acknowledgment Stress Risk Factors Patient Stress Risk Factors Are:: Patient denies stress as a risk factor Response Code Stress Response Code:: Not instructed
[2025-04-22] MEDS: TICAGRELOR 90 MG TABLET PO (21:23)
[2025-04-23] VITALS (24 sets, daily range): BP systolic 114–151; BP diastolic 70–112; PULSE 57–96; RESP 14–22; TEMP 36.4–36.8; O2SAT 93–100; BMI 26.0; BMI 25.9
[2025-04-23 03:30] LABS: Hematocrit 36.4 % (37-47); Hemoglobin 12.2 g/dL (12.0-15.0); Immature Granulocytes Count 0.030 X10^3/uL (0.0-0.0); Mean Corp Hgb Conc 33.5 g/dL (32-36); Mean Corpuscular Volume 91.5 fL (81-99); Mean Platelet Vol. 10.2 fl (6.2-12.0); NRBC Flagged by Analyzer 0 % (0-5); POSITIVE COUNT YES; RBC Distribution Width CV 12.1 % (11.6-14.6); RBC Distribution Width SD 40.6 fl (35.1-43.9); Red Blood Count 3.98 M/mm3 (4.2-5.4); White Blood Count 8.4 K/mm3 (4.4-11.0)
[2025-04-23 04:03] LABS: AST(SGOT) 234 U/L (<=31); Alanine Aminotransfer ALT/SGPT 25 U/L (<=34); Albumin, Serum 3.6 g/dL (3.4-4.8); Alkaline Phosphatase 107 U/L (35-104); Anion Gap 11 (5-15); BUN 23 mg/dL (4-19); BUN/Creat Ratio 22.6 RATIO (10-20); Calcium,Total 8.9 mg/dL (7.6-11.0); Carbon Dioxide 22.0 mmol/L (21.0-32.0); Chloride 107 mmol/L (98-108); Estimated Creatinine Clearance 55.45 ml/min (50-250); Globulin 3.0 g/dL (2.2-4.2); Glucose 95 mg/dL (70-99); Potassium 4.3 mmol/L (3.3-5.1)
[2025-04-23 04:29] LABS: Differential Indicated SCAN CRITERIA MET
--- NOTE | 2025-04-23 05:13 | EKG12_ITS ---
Test Reason : POST PCI Blood Pressure : */* mmHG Vent. Rate : 66 BPM Atrial Rate : 66 BPM P-R Int : 166 ms QRS Dur : 72 ms QT Int : 482 ms P-R-T Axes : 68 71 128 degrees QTcB Int : 505 ms Normal sinus rhythm with sinus arrhythmia Possible Left atrial enlargement Anteroseptal infarct , age undetermined ST & T wave abnormality, consider lateral ischemia Abnormal ECG No previous ECGs available Confirmed by NEVAEH MENDEZ, ARBEN ([id number]), deputy editor in chief XAVI AMARAL ([id number]) on 04/24/2025 6:30:41 AM Referred By: Sonya Longo Confirmed By: ARBEN HERRING MD
--- NOTE | 2025-04-23 06:44 | PN.HOSP_ITS ---
Reason for Visit Chief Complaint: chest pain. Subjective Subjective Feeling well. Objective Data Objective Data Vital Signs: Vital Signs Temp Pulse Resp BP Pulse Ox O2 Del Method O2 Flow Rate 36.6 C 61 14 151/97 H 96 Room Air 2 04/23/25 04:00 04/23/25 06:00 04/23/25 06:00 04/23/25 06:00 04/23/25 06:00 04/23/25 06:00 04/22/25 13:07 Oxygen Flow Rate (L/min) 2 Oxygen Delivery Method Room Air Weight: 79.7 kg Body Mass Index (BMI) 26.0 Intake & Output: Intake and Output for Last 24 Hours 04/21/25 04/22/25 04/23/25 23:59 23:59 23:59 Intake Total 1015 / 1015 Output Total 0 / 0 Balance 1015 / 1015 0 / 0 Lab / Micro Data 04/23/25 03:18 04/23/25 03:18 Labs: Laboratory Results - last 24 hr 04/22/25 08:48: WBC 9.2, RBC 4.57, Hgb 14.1, Hct 42.0, MCV 91.9, MCH 30.9, MCHC 33.6, RDW Std Deviation 40.9, RDW Coeff of Lizzy 12.0, Plt Count 316, MPV 10.0, Immature Gran % (Auto) 0.400, Neut % (Auto) 70.7 H, Lymph % (Auto) 20.6, [place] % (Auto) 7.1, Eos % (Auto) 1.0, Baso % (Auto) 0.2, Absolute Neuts (auto) 6.5, Absolute Lymphs (auto) 1.89, Nucleated RBC % 0, PT 13.6, INR 1.0, APTT 26.8, Sodium 139, Potassium 4.7, Chloride 104, Carbon Dioxide 21.6, Anion Gap 14, BUN 21 H, Creatinine 0.86, Est GFR (MDRD) Non-Af 72, BUN/Creatinine Ratio 24.2 H, G lucose 147 H, Calcium 9.4, Troponin T High Sens 156 H*, Triglycerides 180, Cholesterol 174, LDL Cholesterol, Calc 97, VLDL Cholesterol 36, HDL Cholesterol 46, Cholesterol/HDL Ratio 3.82 04/22/25 09:02: Activated Clotting Time 235 H 04/22/25 09:56: Activated Clotting Time 250 H 04/23/25 03:18: WBC 8.4, RBC 3.98 L, Hgb 12.2, Hct 36.4 L, MCV 91.5, MCH 30.7, MCHC 33.5, RDW Std Deviation 40.6, RDW Coeff of Lizzy 12.1, Plt Count Not Reportable, MPV 10.2, Immature Gran % (Auto) 0.400, Neut % (Auto) 64.2, Lymph % (Auto) 24.3, [place] % (Auto) 10.3 H, Eos % (Auto) 0.6, Baso % (Auto) 0.2, Absolute Neuts (auto) 5.4, Absolute Lymphs (auto) 2.04, Nucleated RBC % 0, Platelet Estimate SLT DEC, Sodium 139, Potassium 4.3, Chloride 107, Carbon Dioxide 22.0, Anion Gap 11, BUN 23 H, Creatinine 1.03, Estim Creat Clear Calc 55.45, Est GFR (MDRD) Non-Af 58 L, BUN/Creatinine Ratio 22.6 H, Glucose 95, Calcium 8.9, Total Bilirubin 0.37, AST 234 H, ALT 25, Alkaline Phosphatase 107 H, Total Protein 6.6, Albumin 3.6, Globulin 3.0, Albumin/Globulin Ratio 1.2 Physical Exam Const alert and no apparent distress HEENT head/scalp atraumatic and moist oral mucous membranes Resp normal respiratory effort, no retractions, no use of accessory muscles and clear to auscultation bilaterally Cardio regular rate, regular rhythm, S1 normal heart sound and S2 normal heart sound GI normal to inspection, nondistended, normoactive bowel sounds and soft to palpation Neuro Sensorium / Orientation: awake, alert, oriented to person, oriented to place and oriented to time Psych affect normal Assessment & Plan Assessment/Plan (1) ST elevation myocardial infarction (STEMI) of anterior wall: PLAN: s/p PCI to LAD. Noted also to have 70% stenosis mid LCx and 80% Prox OM1. EF 35% on LHC. on ASA, Ticagrelor, carvedilol, lisinopril, atorvastatin, empagliflozin, spironolactone Echo shows an EF 40-45%. Mild-mod GA. Mild AR. PLAN: Plan cardiomyopathy: ischemic. meds as above. depression: venlafaxine VTE prophylaxis: LMWH. code status: full. Charges/Coding Visit Charges Inpatient E&M: 22455 Subs Hosp L2
--- NOTE | 2025-04-23 07:20 | PN.CARD_ITS ---
Subjective Subjective Seen and evaluated. Doing much better this morning. No complaints. Objective Data Vital Signs: Vital Signs Temp Pulse Resp BP Pulse Ox O2 Del Method O2 Flow Rate 97.8 F 85 22 H 134/93 H 96 Room Air 2 04/23/25 04:00 04/23/25 07:00 04/23/25 07:00 04/23/25 07:00 04/23/25 07:00 04/23/25 07:00 04/22/25 13:07 Oxygen Flow Rate (L/min) 2 Oxygen Delivery Method Room Air Weight: 175 lb 11.335 oz Body Mass Index (BMI) 26.0 Intake & Output: Intake and Output for Last 24 Hours 04/21/25 04/22/25 04/23/25 23:59 23:59 23:59 Intake Total 1015 / 1015 Output Total 0 / 0 Balance 1015 / 1015 0 / 0 Lab / Micro Data 04/23/25 03:18 04/23/25 03:18 Labs: Laboratory Results - last 24 hr 04/22/25 08:48: WBC 9.2, RBC 4.57, Hgb 14.1, Hct 42.0, MCV 91.9, MCH 30.9, MCHC 33.6, RDW Std Deviation 40.9, RDW Coeff of Lizzy 12.0, Plt Count 316, MPV 10.0, Immature Gran % (Auto) 0.400, Neut % (Auto) 70.7 H, Lymph % (Auto) 20.6, [place] % (Auto) 7.1, Eos % (Auto) 1.0, Baso % (Auto) 0.2, Absolute Neuts (auto) 6.5, Absolute Lymphs (auto) 1.89, Nucleated RBC % 0, PT 13.6, INR 1.0, APTT 26.8, Sodium 139, Potassium 4.7, Chloride 104, Carbon Dioxide 21.6, Anion Gap 14, BUN 21 H, Creatinine 0.86, Est GFR (MDRD) Non-Af 72, BUN/Creatinine Ratio 24.2 H, G lucose 147 H, Calcium 9.4, Troponin T High Sens 156 H*, Triglycerides 180, Cholesterol 174, LDL Cholesterol, Calc 97, VLDL Cholesterol 36, HDL Cholesterol 46, Cholesterol/HDL Ratio 3.82 04/22/25 09:02: Activated Clotting Time 235 H 04/22/25 09:56: Activated Clotting Time 250 H 04/23/25 03:18: WBC 8.4, RBC 3.98 L, Hgb 12.2, Hct 36.4 L, MCV 91.5, MCH 30.7, MCHC 33.5, RDW Std Deviation 40.6, RDW Coeff of Lizzy 12.1, Plt Count Not Reportable, MPV 10.2, Immature Gran % (Auto) 0.400, Neut % (Auto) 64.2, Lymph % (Auto) 24.3, [place] % (Auto) 10.3 H, Eos % (Auto) 0.6, Baso % (Auto) 0.2, Absolute Neuts (auto) 5.4, Absolute Lymphs (auto) 2.04, Nucleated RBC % 0, Platelet Estimate SLT DEC, Sodium 139, Potassium 4.3, Chloride 107, Carbon Dioxide 22.0, Anion Gap 11, BUN 23 H, Creatinine 1.03, Estim Creat Clear Calc 55.45, Est GFR (MDRD) Non-Af 58 L, BUN/Creatinine Ratio 22.6 H, Glucose 95, Calcium 8.9, Total Bilirubin 0.37, AST 234 H, ALT 25, Alkaline Phosphatase 107 H, Total Protein 6.6, Albumin 3.6, Globulin 3.0, Albumin/Globulin Ratio 1.2 Cardiology Labs/Tests 04/22/25 08:48: WBC 9.2, RBC 4.57, Hgb 14.1, Hct 42.0, MCV 91.9, MCH 30.9, MCHC 33.6, Plt Count 316, MPV 10.0, Immature Gran % (Auto) 0.400, Neut % (Auto) 70.7 H, Lymph % (Auto) 20.6, [place] % (Auto) 7.1, Eos % (Auto) 1.0, Baso % (Auto) 0.2, Absolute Neuts (auto) 6.5, Nucleated RBC % 0, PT 13.6, INR 1.0, APTT 26.8, Sodium 139, Potassium 4.7, Chloride 104, Carbon Dioxide 21.6, Anion Gap 14, BUN 21 H, Creatinine 0.86, Est GFR (MDRD) Non-Af 72, BUN/Creatinine Ratio 24.2 H, G lucose 147 H, Calcium 9.4, Triglycerides 180, Cholesterol 174, VLDL Cholesterol 36, HDL Cholesterol 46, Cholesterol/HDL Ratio 3.82 04/23/25 03:18: WBC 8.4, RBC 3.98 L, Hgb 12.2, Hct 36.4 L, MCV 91.5, MCH 30.7, MCHC 33.5, Plt Count Not Reportable, MPV 10.2, Immature Gran % (Auto) 0.400, Neut % (Auto) 64.2, Lymph % (Auto) 24.3, [place] % (Auto) 10.3 H, Eos % (Auto) 0.6, Baso % (Auto) 0.2, Absolute Neuts (auto) 5.4, Nucleated RBC % 0, Sodium 139, Potassium 4.3, Chloride 107, Carbon Dioxide 22.0, Anion Gap 11, BUN 23 H, Creatinine 1.03, Est GFR (MDRD) Non-Af 58 L, BUN/Creatinine Ratio 22.6 H, Glucose 95, Calcium 8.9, Total Bilirubin 0.37 Rhythm: EKG: ECHO: Stress Test: Cardiac Cath: PCI: CT Surgery: Holter monitor: EPS: PPM: CXR: Chest CT Scan: Physical Exam Const alert and no apparent distress HEENT normocephalic and head/scalp atraumatic Resp normal respiratory effort, no retractions, no use of accessory muscles and clear to auscultation bilaterally Cardio regular rate, regular rhythm, S1 normal heart sound and S2 normal heart sound GI normal to inspection, nondistended, normoactive bowel sounds, soft to palpation, non-tender and non-distended Extremity normal to inspection and full ROM Neuro Sensorium / Orientation: awake and alert Psych affect normal Assessment & Plan Assessment/Plan (1) ST elevation myocardial infarction (STEMI) of anterior wall: PLAN: Patient presented with an acute ST elevation myocardial infarction. Underwent cardiac catheterization angioplasty and thrombectomy of the left anterior descending artery with placement of a 3.0 x 3.8 mm stent. Doing well this morning. * Enrolled in cardiac rehabilitation * Low-dose beta-prasanna * Aspirin * Ticagrelor * High intensity statin (2) Ischemic cardiomyopathy: PLAN: Patient with ischemic cardiomyopathy. * Will evaluate echocardiogram this morning * Continue current guideline directed medical therapy. (3) Hypertension: PLAN: Patient with a history of hypertension under good control at this particular time we will not make any major changes (4) Dyslipidemia: PLAN: Patient with a history of hyperlipidemia. Will start high intensity statin.
--- NOTE | 2025-04-23 08:00 | ECHOCS_ITS ---
Reason For Study Reason For Study: CHEST PAIN Procedure This was a 2D Doppler, Color Flow transthoracic echocardiogram. The patient was scanned supine. The study was technically difficult. Due to patient being restless. Contrast injection was performed. Exam performed portable in ICU/CCU. Left Ventricle Normal size and thickness. Apical akinesis. Severe mid to distal anterior hypokinesis. Estimated LVEF 40-45%. Stage I diastolic dysfunction. Right Ventricle Normal right ventricle. Atria The left and right atria are normal. Mitral Valve Mild-Moderate (1-2+) posteriorly directed mitral valve insufficiency. Tricuspid Valve Trivial tricuspid valve insufficiency. Right ventricular systolic pressure estimated to be 38 mmHg. Aortic Valve Mildly calcified aortic valve leaflets. Aortic valve sclerosis without stenosis. Mild aortic valve regurgitation. Pulmonic Valve The pulmonic valve is not well visualized. Great Vessels Normal sized aortic root. Pericardium/Pleural No pericardial effusion. MMode/2D Measurements & Calculations LVIDd: 5.3 cm IVSd: 1.0 cm Ao root diam: 3.1 cm LVIDs: 3.5 cm LVPWd: 1.1 cm RVDd: 2.8 cm FS: 34.8 % LAV(MOD-bp): 56.8 ml LVAd ap4: 36.4 cm2 LVAd ap2: 36.1 cm2 LAV(MOD-bp) Indexed: 29.4 ml/m2 LVLd ap4: 8.8 cm LVLd ap2: 8.5 cm LAV(MOD-sp2): 55.6 ml EDV(MOD-sp4): 125.9 ml EDV(MOD-sp2): 132.1 ml LAV(MOD-sp4): 55.3 ml EDV(sp4-el): 128.5 ml EDV(sp2-el): 130.7 ml LVAs ap4: 24.6 cm2 LVAs ap2: 24.8 cm2 LVLs ap4: 8.2 cm LVLs ap2: 7.1 cm ESV(MOD-sp4): 62.5 ml ESV(MOD-sp2): 71.6 ml ESV(sp4-el): 63.3 ml ESV(sp2-el): 72.8 ml EF(MOD-sp4): 50.4 % EF(MOD-sp2): 45.8 % EF(sp4-el): 50.7 % SV(MOD-sp4): 63.4 ml SV(MOD-sp2): 60.5 ml SV(sp4-el): 65.2 ml SI(MOD-sp4): 32.8 ml/m2 SI(MOD-sp2): 31.3 ml/m2 LA A4 area: 19.7 cm2 LA dimension(2D): 3.5 cm RA A4 area: 12.9 cm2 TAPSE: 2.6 cm Time Measurements MV dec time: 0.14 sec Doppler Measurements & Calculations MV E max fercho: 48.4 cm/sec Lat Peak E' Fercho: 4.3 cm/sec Med Peak E' Fercho: 10.2 cm/sec MV A max fercho: 71.6 cm/sec E/E' lat: 11.4 E/E' med: 4.7 MV E/A: 0.68 MV V2 max: 98.4 cm/sec MV P1/2t max fercho: 108.1 cm/sec Ao V2 max: 162.2 cm/sec MV max P.9 mmHg MV P1/2t: 36.0 msec Ao max P.5 mmHg MV V2 mean: 50.6 cm/sec Ao V2 mean: 105.2 cm/sec MV mean P.2 mmHg MV dec slope: 878.5 cm/sec2 Ao mean P.9 mmHg MV V2 VTI: 24.1 cm MVA(P1/2t): 6.1 cm2 Ao V2 VTI: 28.2 cm AV (velocity ratio): 0.74 AI max fercho: 382.7 cm/sec LV V1 max: 103.9 cm/sec PA V2 max: 106.7 cm/sec AI max P.6 mmHg LV V1 max P.3 mmHg LV V1 mean P.2 mmHg AI dec slope: 159.5 cm/sec2 LV V1 mean: 71.3 cm/sec AI P1/2t: 703.0 msec LV V1 VTI: 20.8 cm TR max fercho: 288.4 cm/sec TR max P.3 mmHg ECHO/Echo Complete W/ Contrast Interpretation Summary Apical akinesis. Severe mid to distal anterior hypokinesis. Estimated LVEF 40-4 5%. Stage I diastolic dysfunction. Mild-Moderate (1-2+) posteriorly directed mitral valve insufficiency. Mildly calcified aortic valve leaflets. Aortic valve sclerosis without stenosis . Mild aortic valve regurgitation. Ordering Physician: Sonya Longo Referring Physician: Donte Woodson Performed By: Sandra Duran RDCS, RVT
[2025-04-23] MEDS: Aspirin E.C. 81 MG Tablet PO (08:36)
[2025-04-23] MEDS: TICAGRELOR 90 MG TABLET PO ×2 (09:35→20:54)
[2025-04-23] MEDS: FLU VACCINE HIGH DOSE 25-26(65YR UP) 180 MCG/0.5 ML SYRINGE IM (11:07)
[2025-04-23] MEDS: Dorzolamide HCL/Timolol 10 ml Bottle 1 DRP OPHTHALMIC ×2 (11:36→20:54)
--- NOTE | 2025-04-23 16:06 | CASEMGMT ---
JUAN ALBERTO GRADY Assessment Face to Face with patient for initial transition planning/care coordination assessment. JUAN ALBERTO GRADY introduced self and role at [facility], pt voices understanding. Pt is A&Ox4 and is resting comfortably in bed and is calm. Care providers, pharmacy, and demographics verified. Admitting dx: STEMI LACE Strata: 2 PCP: Donte Woodson Specialists: David Mcclendon DO ([facility] in [facility]). Basali (PM) Preferred Pharmacy: [facility] [place]. Follow for P2Y Rx. Insurance: MCR A/B, MMO Prescription Benefit: Yes LNOK: Phylicia (Friend) Living Arrangements: Pt lives alone in a 2 story home with 5 steps to enter from the front or a ramp to enter from the back ADLs/IADLs: Indep, 6-Click score is 24 Transportation: Self, friends. denies concerns DME: Pt states that she has DME available from her but does not currently use any. Pt states that she has a WC, cane, FWW, and grab bars HHC/SNF: Reports hx at [facility]. Denies HH Pt?s goal: Home Plan: Home, follow for P2Y rx. Pt states that she feels safe returning home alone at the time of DC and denies the need for HH or OP Tx. Pt states that she does not have any further [place] needs or concerns at this time. Maddie Rojo RN, CM
[2025-04-24 03:00] VITALS: BP 132/82; PULSE 70; RESP 16; TEMP 36.6; O2SAT 98
--- NOTE | 2025-04-24 07:08 | PN.CARD_ITS ---
Subjective Subjective Patient seen and evaluated. Doing well this morning. No complaints. Has been walking around. No arrhythmias noted Objective Data Vital Signs: Vital Signs Temp Pulse Resp BP Pulse Ox O2 Del Method O2 Flow Rate 97.9 F 70 16 132/82 H 98 Room Air 2 04/24/25 03:00 04/24/25 03:00 04/24/25 03:00 04/24/25 03:00 04/24/25 03:00 04/24/25 03:00 04/22/25 13:07 Oxygen Flow Rate (L/min) 2 Oxygen Delivery Method Room Air Weight: 175 lb 4.28 oz Body Mass Index (BMI) 25.9 Intake & Output: Intake and Output for Last 24 Hours 04/22/25 04/23/25 04/24/25 23:59 23:59 23:59 Intake Total 1015 / 1015 340 / 340 Output Total 0 / 0 Balance 1015 / 1015 340 / 340 Lab / Micro Data 04/23/25 03:18 04/23/25 03:18 Cardiology Labs/Tests Rhythm: EKG: ECHO: Stress Test: Cardiac Cath: PCI: CT Surgery: Holter monitor: EPS: PPM: CXR: Chest CT Scan: Radiography Diagnostic Testing: Radiology Impression Echocardiogram 04/23/25 08:00 Interpretation Summary Apical akinesis. Severe mid to distal anterior hypokinesis. Estimated LVEF 40- 45%. Stage I diastolic dysfunction. Mild-Moderate (1-2+) posteriorly directed mitral valve insufficiency. Mildly calcified aortic valve leaflets. Aortic valve sclerosis without stenosis. Mild aortic valve regurgitation. Ordering Physician: Sonya Longo Referring Physician: Donte Woodson Performed By: Sandra Duran, KADEN, RVT Physical Exam Const alert and no apparent distress HEENT normocephalic and head/scalp atraumatic Resp normal respiratory effort, no retractions, no use of accessory muscles and clear to auscultation bilaterally Cardio regular rate, regular rhythm, S1 normal heart sound and S2 normal heart sound GI normal to inspection, nondistended, normoactive bowel sounds, soft to palpation, non-tender and non-distended Extremity normal to inspection and full ROM Neuro Sensorium / Orientation: awake and alert Psych affect normal Assessment & Plan Assessment/Plan (1) ST elevation myocardial infarction (STEMI) of anterior wall: PLAN: Patient presented with an acute ST elevation myocardial infarction. Underwent cardiac catheterization angioplasty and thrombectomy of the left anterior descending artery with placement of a 3.0 x 3.8 mm stent. Doing well this morning. * Enrolled in cardiac rehabilitation * Low-dose beta-prasanna * Aspirin * Ticagrelor * High intensity statin (2) Ischemic cardiomyopathy: PLAN: Patient with ischemic cardiomyopathy. * Will evaluate echocardiogram this morning * Continue current guideline directed medical therapy. (3) Hypertension: PLAN: Patient with a history of hypertension under good control at this particular time we will not make any major changes (4) Dyslipidemia: PLAN: Patient with a history of hyperlipidemia. Will start high intensity statin. PLAN: Plan From my standpoint patient appears to be stable for outpatient follow-up on guideline directed medical therapy.
[2025-04-24 08:21] VITALS: BP 141/98; PULSE 67; RESP 16; TEMP 36.2; O2SAT 99
[2025-04-24] MEDS: Dorzolamide HCL/Timolol 10 ml Bottle 1 DRP OPHTHALMIC (08:23)
[2025-04-24] MEDS: TICAGRELOR 90 MG TABLET PO (08:25)
[2025-04-24] MEDS: Aspirin E.C. 81 MG Tablet PO (08:25)
--- NOTE | 2025-04-24 10:37 | DS.PCM_ITS ---
Providers Date of Admission: 04/22/25 Primary Care Physician: Donte Woodson, [employer]BER-C Reason For Visit: stemi Diagnosis Discharge Diagnosis (1) ST elevation myocardial infarction (STEMI) of anterior wall: Status: Acute Code(s): I21.09 - ST elevation (STEMI) myocardial infarction involving other coronary artery of anterior wall Plan: s/p PCI to LAD. Noted also to have 70% stenosis mid LCx and 80% Prox OM1. EF 35% on LHC. on ASA, Ticagrelor, carvedilol, lisinopril, atorvastatin, empagliflozin, spironolactone Echo shows an EF 40-45%. Mild-mod [place]. Mild AR. (2) Ischemic cardiomyopathy: Status: Acute Code(s): I25.5 - Ischemic cardiomyopathy Plan cardiomyopathy: ischemic. meds as above. depression: venlafaxine VTE prophylaxis: LMWH. code status: full. Medications at Discharge Home Medications ergocalciferol (vitamin D2) 1,250 mcg (50,000 unit) capsule 50,000 unit PO QMONTH SUPPLEMENT 05/15/23 venlafaxine 75 mg capsule,extended release 24 hr (Effexor XR) 75 mg PO DAILY DEPRESSION 05/15/23 dorzolamide 22.3 mg-timolol 6.8 mg/mL eye drops 1 drp ophthalmic (eye) BID dr ordered 04/22/25 vitamins A,C,P-evxx-fdxzzw 2,148 mcg-113 mg-45 mg-17.4 mg tablet (Eye Multivitamin) [address] ordered 04/22/25 aspirin 81 mg tablet,delayed release 81 mg PO BREAKFAST #0 tabs 04/24/25 atorvastatin 80 mg tablet 80 mg PO QHS #30 tabs 04/24/25 carvedilol 3.125 mg tablet 3.125 mg PO BID #60 tabs 04/24/25 empagliflozin 10 mg tablet (Jardiance) 10 mg PO DAILY #30 tabs 04/24/25 lisinopril 2.5 mg tablet 2.5 mg PO DAILY #30 tabs 04/24/25 spironolactone 25 mg tablet 12.5 mg (1/2 x 25 mg) PO DAILY #30 tabs 04/24/25 ticagrelor 90 mg tablet 90 mg PO BID #60 tabs 04/24/25 Hospital Course Operations None Procedures 2-D Echocardiogram and Cardiac catheterization Physical Exam Const alert and no apparent distress HEENT normocephalic and head/scalp atraumatic Skin Skin Narrative: Ecchymosis of her right abdomen and right wrist. Weight / BMI Weight Weight: 79.5 kg Body Mass Index (BMI) 25.9 ABG / Lab / Microbiology Data 04/23/25 03:18 04/23/25 03:18 Radiography Diagnostic Testing: Radiology Impression Echocardiogram 04/23/25 08:00 Interpretation Summary Apical akinesis. Severe mid to distal anterior hypokinesis. Estimated LVEF 40- 45%. Stage I diastolic dysfunction. Mild-Moderate (1-2+) posteriorly directed mitral valve insufficiency. Mildly calcified aortic valve leaflets. Aortic valve sclerosis without stenosis. Mild aortic valve regurgitation. Ordering Physician: Sonya Longo Referring Physician: Donte Woodson Performed By: Sandra Duran, KADEN, RVT D/C Instructions DC O2, CPAP, BIPAP Needs Home O2 Discharge instructions: No Meaningful Use Info Meaningful Use Meaningful Use Diagnoses (Choose all that apply): AMI AMI/Post PCI/Angioplasty Aspirin given w/in 24hrs of arrival?: Yes ASA at discharge?: Yes Antiplatelet Therapy at Discharge:: Yes Statins at discharge?: Yes Dwayne/ARB at discharge?: Yes Beta Sean at discharge?: Yes Done w/ Acute OH measure.: Yes Documented LVEF (%): 45 Discharge Plan Admission Admit Date/Time: 04/22/25 10:13 Primary Reason for Your Visit: myocardial infarction. Attending Provider: Sonya Longo Primary Care Provider: Donte Woodson [employer] MEMBER Instructions Patient Instructions: Cardiac Catheterization Dc, Cardiac Cath Transradial Discharge Orders/Prescriptions Prescriptions: New atorvastatin 80 mg Tablet 80 mg PO QHS Qty: 30 0RF aspirin 81 mg Tablet,Delayed Release (Dr/Ec) 81 mg PO BREAKFAST Qty: 0 0RF spironolactone 25 mg Tablet 12.5 mg PO DAILY Qty: 30 0RF carvedilol 3.125 mg Tablet 3.125 mg PO BID Qty: 60 0RF lisinopril 2.5 mg Tablet 2.5 mg PO DAILY Qty: 30 0RF ticagrelor 90 mg Tablet 90 mg PO BID Qty: 60 0RF Jardiance 10 mg Tablet 10 mg PO DAILY Qty: 30 0RF Continued ergocalciferol (vitamin D2) 1,250 mcg (50,000 unit) capsule 50,000 unit PO QMONTH venlafaxine [Effexor XR] 75 mg capsule,extended release 24hr 75 mg PO DAILY dorzolamide-timolol 22.3-6.8 mg/mL drops 1 drp ophthalmic (eye) BID Eye Multivitamin 2,148 mcg-113 mg-45 mg-17.4mg tablet 2 tab PO BID Rx Instructions: administer with AM and PM meals Discontinued atorvastatin 40 mg tablet 40 mg PO QHS cyclobenzaprine 5 mg tablet 5 mg PO TID PRN (Reason: MUSCLE SPASMS) metoprolol succinate 25 mg tablet extended release 24 hr 25 mg PO DAILY meloxicam 15 mg tablet 15 mg PO DAILY ramipril 10 mg capsule 10 mg PO DAILY Referrals / Follow Up: [facility] [Provider Group] - Within 1 Month Donte Woodson NP, [employer] TE[employer] MEMBER-C [Primary Care Provider, Family Practice] - Within 2 Weeks Disposition Disposition (needs filled in before D/C Order can be placed): Home, Self Care Charges/Coding Visit Charges Inpatient E&M: 21233 Disch Hosp
[2025-04-24 11:31] VITALS: BP 114/77; PULSE 62; RESP 16; TEMP 36.3; O2SAT 97
--- NOTE | 2025-04-24 11:31 | PHA.DC_ITS ---
Pharmacy [facility] has performed discharge medication counseling for this patient. The patient was counseled on the following discharge medications and changes in medications for homegoing review. - Aspirin 81 mg tablet, Atorvastatin 80 mg tablet, Carvedilol 3.125 mg tablet, Jardiance 10 mg tablet, Lisinopril 2.5 mg tablet, Spironolactone 25 mg tablet, Ticagrelor 900 mg tablet. The Reason for Use, instructions for use, and potential side effects were reviewed for all new medications. The patient's questions regarding all of their medications were answered. The patient was able to verbally demonstrate an understanding of their discharge medications. Medications at Discharge Home Medications ergocalciferol (vitamin D2) 1,250 mcg (50,000 unit) capsule 50,000 unit PO QMONTH SUPPLEMENT 05/15/23 venlafaxine 75 mg capsule,extended release 24 hr (Effexor XR) 75 mg PO DAILY DEPRESSION 05/15/23 dorzolamide 22.3 mg-timolol 6.8 mg/mL eye drops 1 drp ophthalmic (eye) BID eye health 04/22/25 vitamins A,C,K-aqik-vllveq 2,148 mcg-113 mg-45 mg-17.4 mg tablet (Eye Multivitamin) 2 tab PO BID supplement 04/22/25 aspirin 81 mg tablet,delayed release 81 mg PO BREAKFAST #0 tabs 04/24/25 atorvastatin 80 mg tablet 80 mg PO QHS #30 tabs 04/24/25 carvedilol 3.125 mg tablet 3.125 mg PO BID #60 tabs 04/24/25 empagliflozin 10 mg tablet (Jardiance) 10 mg PO DAILY #30 tabs 04/24/25 lisinopril 2.5 mg tablet 2.5 mg PO DAILY #30 tabs 04/24/25 spironolactone 25 mg tablet 12.5 mg (1/2 x 25 mg) PO DAILY #30 tabs 04/24/25 ticagrelor 90 mg tablet 90 mg PO BID #60 tabs 04/24/25
--- NOTE | 2025-04-24 11:31 | CASEMGMT ---
Patient has order for discharge. Patient discharging on Jardiance and Brilinta. JUAN ALBERTO GRADY called [facility] Retail copay for Jardiance is $145.02. Per pharmacy, insurance only covers brand name Brilinta and cost is $173.09, generic out of pocket is $43.99. JUAN ALBERTO GRADY in to patient room to update regarding prescription cost. Patient would prefer to fill generic Brilinta and can afford medications. Patient denies further needs or concerns at discharge. Patient had no further questions. JUAN ALBERTO GRADY updated [facility] Retail Rx that patient would prefer generic Brilinta.
== END 2025-04-24 14:44 | disposition home or self-care (01) | DRG 360 ==
LOC: ED 08:49 → ICU 08:57 → PCU 04-23 19:16
PROVIDERS: Emergency Provider Emergency Medicine; PCP Nurse Practitioner Family; Referring Provider Internal Medicine Cardiovascular Disease; Visit Provider Internal Medicine Cardiovascular Disease
DX: I21.09 ST elevation (STEMI) myocardial infarction involving other coronary artery of anterior wall (principal); E55.9 Vitamin D deficiency, unspecified; I10 Essential (primary) hypertension; F32.A Depression, unspecified; E78.5 Hyperlipidemia, unspecified; F41.9 Anxiety disorder, unspecified; K21.9 Gastro-esophageal reflux disease without esophagitis; K58.9 Irritable bowel syndrome, unspecified; F17.210 Nicotine dependence, cigarettes, uncomplicated; I25.5 Ischemic cardiomyopathy; I25.10 Atherosclerotic heart disease of native coronary artery without angina pectoris; I49.3 Ventricular premature depolarization; Z79.899 Other long term (current) drug therapy; Z23 Encounter for immunization
CPT/HCPCS: 80048; 80053; 80061; 84484; 85025; 85347; 85610; 85730; 92941; 92973; 93005; 93306; 93458; 94762; 99152; 99153; 99282; 99406; C1757; C1887; C1894; Q9957; Q9967; C1725; C1769; C1874; C8929; C9606; J2405

== ENCOUNTER → 2025-05-19 | Outpatient (CLI) | payer MEDICARE, OTHER, SELFPAY ==
--- NOTE | 2025-05-19 11:20 | RAD_ITS ---
PROCEDURE: CHEST PA AND LATERAL 05/19/2025 REASON FOR EXAM: PRE-OPERATIVE: STAGED PCI TECHNIQUE: Procedure Code: RADCXR Modality: DX Procedure: CHEST PA AND LATERAL FINDINGS: No focal consolidation. No pleural effusion or pneumothorax. Cardiac silhouette is within normal limits. Calcified aortic arch. No acute fractures. Upper lumbar posterior fixation hardware. RAD/Chest PA and Lateral IMPRESSION: No focal consolidation. Reading Location: [id number]
[2025-05-19 12:22] LABS: Hematocrit 41.9 % (37-47); Hemoglobin 13.3 g/dL (12.0-15.0); Immature Granulocytes Count 0.030 X10^3/uL (0.0-0.0); Mean Corp Hgb Conc 31.7 g/dL (32-36); Mean Corpuscular Volume 93.3 fL (81-99); Mean Platelet Vol. 10.3 fl (6.2-12.0); NRBC Flagged by Analyzer 0 % (0-5); Platelet Count 368 K/mm3 (150-450); RBC Distribution Width CV 12.6 % (11.6-14.6); RBC Distribution Width SD 43.1 fl (35.1-43.9); Red Blood Count 4.49 M/mm3 (4.2-5.4); White Blood Count 8.1 K/mm3 (4.4-11.0)
[2025-05-19 13:23] LABS: Anion Gap 10 (5-15); BUN 20 mg/dL (4-19); BUN/Creat Ratio 18.2 RATIO (10-20); Calcium,Total 9.9 mg/dL (7.6-11.0); Carbon Dioxide 24.0 mmol/L (21.0-32.0); Chloride 106 mmol/L (98-108); Glucose 100 mg/dL (70-99); Potassium 6.3 mmol/L (3.3-5.1)
--- OUTSIDE RECORDS SUMMARY | 2025-05-19 16:37 | XMS RPT_ITS | CCD ---
Author Organization [facility] Care Team Providers Care Telescope Repairer Name Role Phone REFERRING, MONTSE WO ID Unavailable Unavailable CHINTAN, CANDY Unavailable Unavailable CHINTAN, CANDY Unavailable Unavailable CHINTAN CHACKO - WALDO, CANDY Radfrod Primary Care Phys ician Chintan FRAMING MILL OPERATOR HELPER, FRAMING MILL OPERATOR HELPER-C Candy Schwarz Primary Care Pr ovider Dr. Mavis Vásquez Admit Provider Dr. Mavis Vásquez Other Provider Dr. Evonne Bishop Attending Provider [phone] Evonne Bishop Other Provider Dr. Kwan [...] Provider Dr. Ken Lopez Other Provider [phone] FAHAD MENDEZ, DR WEBBER Attending Unavailabl e CHINTAN SHUTTLE PREPARATION SUPERVISOR - CANDY HAAS Primary Care U navailable CHINTAN SHUTTLE PREPARATION SUPERVISOR - GRATED 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, CANDY Radford Attending U navailable CHINTAN SHUTTLE PREPARATION SUPERVISOR - GRATED 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, CANDY Radford Primary Care U navailable CHINTAN SHUTTLE PREPARATION SUPERVISOR - GRATED 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, CANDY Radford Attending U navailable CHINTAN SHUTTLE PREPARATION SUPERVISOR - GRATED 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, CANDY Radford Primary Care U navailable CHINTAN SHUTTLE PREPARATION SUPERVISOR - GRATED 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, CANDY Radford Attending U navailable CHINTAN SHUTTLE PREPARATION SUPERVISOR - GRATED 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, CANDY Radford Primary Care U navailable CHINTAN SHUTTLE PREPARATION SUPERVISOR - GRATED 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, CANDY Radford Attending U navailable CHINTAN SHUTTLE PREPARATION SUPERVISOR - GRATED 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, CANDY Radford Primary Care U navailable HELIO CASTILLO Attending Unavailab le CHINATN SHUTTLE PREPARATION SUPERVISOR - GRATED 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, CANDY Radford Primary Care U navailable CHINTAN SHUTTLE PREPARATION SUPERVISOR - GRATED 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, CANDY Radford Primary Care U navailable HELIO CASTILLO Attending Unavailab le Chintan FRAMING MILL OPERATOR HELPER, Candy Schwarz Primary Care Unav ailYaniv Escobar Consulting Unavailable Danielle Castillo Referring Unavailable Jonathan, Danielle Perkins Attending Unavailable Dukes FRAMING MILL OPERATOR HELPER, Candy Schwarz Primary Care Unav ailable Sementi, Ava Knox Referring Unavaila ble Sementi, Ava Knox Attending Unavaila ble Chintan FRAMING MILL OPERATOR HELPER, Candy Schwarz Primary Care Unav ailable Chintan FRAMING MILL OPERATOR HELPER, Candy Schwarz Referring Unav ailable Dukes FRAMING MILL OPERATOR HELPER, Candy Schwarz Attending Unav ailable Chintan FRAMING MILL OPERATOR HELPER-C, Candy Schwarz Primary Care Provi melissa Danielle Castillo PA-C Attending Provider [phone] Danielle Castillo PA-C Referring Provider Gisselle MENDEZ, Dr. Purvis Other Provider Unava ilable CHINTAN SHUTTLE PREPARATION SUPERVISOR - WALDO, CANDY Radford Attending U navailable CHINTAN SHUTTLE PREPARATION SUPERVISOR - GRATED 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, CANDY Radford Primary Care U leonid PENA MD, MAURIZIO Mcallister Attending Unavailable CHINTAN SHUTTLE PREPARATION SUPERVISOR - GRATED 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, CANDY Radford Primary Care U navailable CHINTAN SHUTTLE PREPARATION SUPERVISOR - GRATED 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, CANDY Radford Primary Care U leonid PENA MD, MAURIZIO Mcallister Attending Unavailable CHINTAN SHUTTLE PREPARATION SUPERVISOR - GRATED 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, CANDY Radford Primary Care U navailable CHINTAN SHUTTLE PREPARATION SUPERVISOR - GRATED 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, CANDY Radford Attending U MAURIZIO Camilo MD Attending Unavailable CHINTAN SHUTTLE PREPARATION SUPERVISOR - GRATED 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, CANDY Radford [facility] CHINTAN SHUTTLE PREPARATION SUPERVISOR - GRATED 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, CANDY Radford Attending U [facility] CHINTAN SHUTTLE PREPARATION SUPERVISOR - GRATED 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, CANDY Radford Primary Care U navailable CHINTAN SHUTTLE PREPARATION SUPERVISOR - GRATED 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, CANDY Radford Attending [facility] CHINTAN SHUTTLE PREPARATION SUPERVISOR - GRATED 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, CANDY Radford [facility] CHINTAN SHUTTLE PREPARATION SUPERVISOR - GRATED 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, CANDY Radford Attending U [facility] CHINTAN SHUTTLE PREPARATION SUPERVISOR - GRATED 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, CANDY Radford Primary Care [facility] CHINTAN SHUTTLE PREPARATION SUPERVISOR - GRATED 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, CANDY Radford Attending U [facility] CHINTAN SHUTTLE PREPARATION SUPERVISOR - GRATED 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, CANDY Radford Primary [facility] CHINTAN SHUTTLE PREPARATION SUPERVISOR - GRATED 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, CANDY Radofrd Primary Care U [facility] CHINTAN SHUTTLE PREPARATION SUPERVISOR - GRATED 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, CANDY Radford Attending U leonid Unavailable Unavailable Unavailable Allergies Allergy Classification Reported Allergen(s) Allergy Type Date of Onset Reaction(s) Facility (14 sources) Azithromycin; Translations: [azithromycin] Drug Allergy Headache (finding), Dizziness (finding) [facility] (14 sources) Cephalexin; Translations: [cephalexin] Drug Allergy Diarrhea (finding) [facility] (8 sources) gabapentin; Translations: [gabapentin] Drug Allergy Nausea (finding) [facility] PM Medications Current Medications Medication Drug Class(es) Dates Sig (Normalized) Sig (Original) atorvastatin 40 mg oral tablet (16 sources) HMG-CoA Reductase Inhibitor Start: 12-10-2024 atorvastatin 40 mg oral tablet Dose : 40 mg = 1 tab(s), Oral, qDay, # 90 tab(s), 1 Refill(s), Pharmacy: [facility], Hyperlipidemia LDL goal Start Date: 12/10/24 Status: Ordered Medication Dispense Status: Completed Quantity: 90.0 Unit: tab(s) Total Allowed Fills: 2 Fills Dispensed: 0 Indications: Pure hyperglyceridemia; Hyperlipidemia, unspecified; Start: 05-05-2023 atorvastatin 4 0 mg oral tablet Dose : 40 mg = 1 tab(s), Oral, qDay, # 90 tab(s), 1 Refill(s), Pharmacy: [facility], Hyperlipidemia LDL goal Start Date: 04/30/24 Status: Ordered Quantity: 90.0 Unit: tab(s) Repeat number: 2 Indications: Pure hyperglyceridemia; Hyperlipidemia, unspecified; Start: 11-22-2022 atorvastatin 4 0 mg oral tablet Dose : 40 mg = 1 tab(s), Oral, qDay, # 90 tab(s), 1 Refill(s), Pharmacy: [facility], Hyperlipidemia LDL goal Start Date: 11/22/22 Status: Ordered Start: 05-12-2022 atorvastatin 4 0 mg oral tablet Dose : 40 mg = 1 tab(s), Oral, qDay, # 90 tab(s), 1 Refill(s), Pharmacy: [facility], Hyperlipidemia LDL goal Start Date: 05/12/22 Status: Ordered Start: 11-09-2021 End: 05-08-2022 atorvastatin 20 mg oral tabl et Dose : 20 mg = 1 tab(s), Oral, qDay, # 90 tab(s), 1 Refill(s), Pharmacy: [facility], Hyperlipidemia LDL goal Start Date: 11/09/21 Stop Date: 05/08/22 Status: Ordered Start: 10-20-2020 End: 07-17-2021 atorvastatin 20 mg oral tabl et Dose : 20 mg = 1 tab(s), Oral, qDay, # 90 tab(s), 2 Refill(s), Pharmacy: [facility], Hyperlipidemia LDL goal Start Date: 10/20/20 [...] Start: 04-23-2019 take 1 capsule by mo [facility] once daily calcium-vitamin D 600 [...] qmonth, # 4 cap(s), 1 Refill(s), Pharmacy: [facility], Vitamin D deficiency, 172, cm, 12/10/24 [...] qmonth, # 4 cap(s), 1 Refill(s), Pharmacy: [facility], Vitamin D deficiency, 176, cm, 04/30/24 12:56:00 EST, Height, kg, 04/30/24 12:56:00 EST, Dosing Weight Start Date: 04/30/24 Stop Date: 10/27/24 Status: Ordered Quantity: 4.0 Unit: cap(s) Repeat number: 2 Indications: Vitamin D deficiency, unspecified; Start: 05-15-2023 Ergocalciferol (Vitamin D2) 1,250 mcg (50,000 unit) capsule Active 24246 U PO EVERY MONTH May 15, 2023 1:00am Start: 05-15-2023 take 46215 [IU] by m outh every month Ergocalciferol (Vitamin D2) Active 14947 UNIT PO EVERY MONTH May 15, 2023 12:00am Start: 05-05-2023 End: 04-09-2024 ergocalciferol 50,000 intl u nits (1.25 mg) oral capsule Dose : 50,000 International_Unit = 1 cap(s), Oral, qmonth, # 4 cap(s), 1 Refill(s), Pharmacy: [facility], Vitamin D deficiency, 176, cm, 10/12/23 8:49:00 EDT, Height, kg, 10/12/23 8:49:00 EDT, Dosing Weight Start Date: 10/12/23 Stop Date: 04/09/24 Status: Ordered Start: 11-22-2022 End: 05-21-2023 ergocalciferol 50,000 intl u nits (1.25 mg) oral capsule Dose : 50,000 International_Unit = 1 cap(s), Oral, qmonth, # 4 cap(s), 1 Refill(s), Pharmacy: [facility], Vitamin D deficiency, 173, cm, 11/22/22 10:23:00 EDT, Height, kg, 11/22/22 10:23:00 EDT, Dosing Weight Start Date: 11/22/22 Stop Date: 05/21/23 Status: Ordered Start: 05-12-2022 End: 11-08-2022 ergocalciferol 50,000 intl u nits (1.25 mg) oral capsule Dose : 50,000 International_Unit = 1 cap(s), Oral, qmonth, # 4 cap(s), 1 Refill(s), Pharmacy: [facility], Vitamin D deficiency, 173, cm, 05/12/22 10:31:00 EST, Height, kg, 05/12/22 10:31:00 EST, Dosing Weight Start Date: 05/12/22 Stop Date: 11/08/22 Status: Ordered Start: 11-09-2021 End: 05-08-2022 ergocalciferol 50,000 intl u nits (1.25 mg) oral capsule Dose : 50,000 International_Unit = 1 cap(s), Oral, qmonth, # 4 cap(s), 1 Refill(s), Pharmacy: [facility], Vitamin D deficiency, 175, cm, 11/09/21 9:03:00 EDT, Height, kg, 11/09/21 9:03:00 EDT, Dosing Weight Start Date: 11/09/21 Stop Date: 05/08/22 Status: Ordered Start: 10-20-2020 End: 07-17-2021 ergocalciferol 50,000 intl u nits (1.25 mg) oral capsule Dose : 50,000 International_Unit = 1 cap(s), Oral, qWeek, # 13 cap(s), 2 Refill(s), Pharmacy: [facility], Vitamin D deficiency, 175, cm, 10/20/20 10:15:00 EDT, Height, kg, 10/20/20 10:15:00 EDT, Dosing Weight Start Date: 10/20/20 Stop Date: 07/17/21 Status: Ordered gabapentin 100 mg oral capsule (20 sources) Anti-epileptic Agent Start: 03-19-2024 End: 05-18-2024 gabapentin 100 mg oral capsule Dose : 100 mg = 1 cap(s), Oral, TID, Fill Date: 03/19/2024, # 90 cap(s), 1 Refill(s), Pharmacy: [facility], Back pain with right-sided sciatica Spinal [...] qDay, # 90 tab(s), 1 Refill(s), Pharmacy: [facility], Uncontrolled hypertension, 172, cm, 12/10/24 12:59:00 [...] qDay, # 90 tab(s), 1 Refill(s), Pharmacy: [facility], Uncontrolled hypertension, 176, cm, 04/30/24 12:56:00 EST, Height, kg, 04/30/24 12:56:00 EST, Dosing Weight Start Date: 04/30/24 Status: Ordered Quantity: 90.0 Unit: tab(s) Repeat number: 2 Indications: Essential (primary) hypertension; Start: 10-12-2023 metoprolol suc cinate 25 mg oral TABLET extended release Dose : 25 mg = 1 tab(s), Oral, qDay, # 90 tab(s), 1 Refill(s), Pharmacy: [facility], Uncontrolled hypertension, 176, cm, 10/12/23 8:49:00 EDT, Height, kg, 10/12/23 8:49:00 EDT, Dosing Weight Start Date: 10/12/23 Status: Ordered Start: 05-05-2023 metoprolol suc cinate 25 mg oral TABLET extended release Dose : 25 mg = 1 tab(s), Oral, qDay, # 30 tab(s), 1 Refill(s), Pharmacy: [facility], Uncontrolled hypertension, 176, cm, 05/05/23 14:38:00 [...] Diovan, # 90 cap(s), 1 Refill(s), Pharmacy: [facility], HTN, goal below 140/90, 172, cm, [...] Diovan, # 90 cap(s), 1 Refill(s), Pharmacy: [facility], HTN, goal below 140/90, 176, cm, [...] 1 Refill(s), 06/01/24 11:35:00 AM EST, Pharmacy: [facility], Back pain with right-sided sciatica Spinal stenosis, 170, cm, 04/02/24 10:59:00 EDT, Height, 83.3, kg, 04/02/24 10:59:00 EDT, Dosing Weight Start Date: 04/02/24 Stop Date: 06/01/24 Status: Ordered valsartan 160 mg oral tablet (13 sources) Angiotensin 2 Receptor Sean Start: 10-12-2023 Diovan 160 mg oral tablet Dose : 160 mg = 1 tab(s), Oral, qDay, # 90 tab(s), 1 Refill(s), Pharmacy: [facility], HTN, goal below 140/90, 176, cm, [...] qDay, # 90 tab(s), 1 Refill(s), Pharmacy: [facility], HTN, goal below 140/90, 173, cm, 11/22/22 10:23:00 EDT, Height, kg, 11/22/22 10:23:00 EDT, Dosing Weight Start Date: 11/22/22 Status: Ordered Start: 05-12-2022 Diovan 160 mg oral tablet Dose : 160 mg = 1 tab(s), Oral, qDay, # 90 tab(s), 1 Refill(s), Pharmacy: [facility], HTN, goal below 140/90, 173, cm, 05/12/22 10:31:00 EST, Height Start Date: 05/12/22 Status: Ordered Start: 11-09-2021 End: 05-08-2022 Diovan 80 mg oral tablet Dos e : 80 mg = 1 tab(s), Oral, qDay, Discontinue the 40 mg Rx, # 90 tab(s), 1 Refill(s), Pharmacy: [facility], HTN, goal below 140/90, 175, cm, 11/09/21 9:03:00 EDT, Height, kg, 11/09/21 9:03:00 EDT, Dosing Weight Start Date: 11/09/21 Stop Date: 05/08/22 Status: Ordered Start: 10-20-2020 End: 07-17-2021 Diovan 80 mg oral tablet Dos e : 80 mg = 1 tab(s), Oral, qDay, Discontinue the 40 mg Rx, # 90 tab(s), 2 Refill(s), Pharmacy: [facility], HTN, goal below 140/90, 175, cm, [...] qDay, # 90 cap(s), 1 Refill(s), Pharmacy: [facility], JOSÉ MIGUEL (generalized anxiety disorder), 172, [...] qDay, # 90 cap(s), 1 Refill(s), Pharmacy: [facility], JOSÉ MIGUEL (generalized anxiety disorder), 176, [...] qDay, # 90 cap(s), 1 Refill(s), Pharmacy: [facility], JOSÉ MIGUEL (generalized anxiety disorder), 173, cm, 05/12/22 10:31:00 EST, Height, kg, 05/12/22 10:31:00 EST, Dosing Weight Start Date: 05/12/22 Stop Date: 11/08/22 Status: Ordered Start: 11-09-2021 End: 05-08-2022 venlafaxine 75 mg oral capsu le, extended release Dose : 75 mg = 1 cap(s), Oral, qDay, # 90 cap(s), 1 Refill(s), Pharmacy: [facility], JOSÉ MIGUEL (generalized anxiety disorder), 175, cm, 11/09/21 9:03:00 EDT, Height, kg, 11/09/21 9:03:00 EDT, Dosing Weight Start Date: 11/09/21 Stop Date: 05/08/22 Status: Ordered Start: 10-20-2020 End: 07-17-2021 venlafaxine 75 mg oral capsu le, extended release Dose : 75 mg = 1 cap(s), Oral, qDay, # 90 cap(s), 2 Refill(s), Pharmacy: [facility], JOSÉ MIGUEL (generalized anxiety disorder), 175, [...] Daily, # 120 mL, 1 Refill(s), Pharmacy: [facility], Pre-op evaluation, 176, cm, 05/05/23 14:38:00 [...] Ordered docusate sodium 50 mg / sennosides, assisted 8.6 mg oral tablet (16 sources) Start: [...] qDay, # 30 tab(s), 1 Refill(s), Pharmacy: [facility], Back pain with right-sided sciatica Spinal [...] qDay, # 30 tab(s), 1 Refill(s), Pharmacy: [facility], Back pain with right-sided sciatica Spinal stenosis, 170, cm, 04/02/24 10:59:00 EDT, Height, kg, 04/02/24 10:59:00 EDT, Dosing Weight Start Date: 04/02/24 Stop Date: 06/01/24 Status: Ordered Start: 05-12-2022 End: 11-08-2022 meloxicam 15 mg oral tablet Dose : 15 mg = 1 tab(s), Oral, qDay, # 90 tab(s), 1 Refill(s), Pharmacy: [facility], Arthritis, 173, cm, 05/12/22 10:31:00 EST, Height, kg, 05/12/22 10:31:00 EST, Dosing Weight Start Date: 05/12/22 Stop Date: 11/08/22 Status: Ordered Start: 11-09-2021 End: 05-08-2022 meloxicam 15 mg oral tablet Dose : 15 mg = 1 tab(s), Oral, qDay, # 90 tab(s), 1 Refill(s), Pharmacy: [facility], Arthritis, 175, cm, 11/09/21 9:03:00 EDT, Height, kg, 11/09/21 9:03:00 EDT, Dosing Weight Start Date: 11/09/21 Stop Date: 05/08/22 Status: Ordered Start: 10-20-2020 End: 07-17-2021 meloxicam 15 mg oral tablet Dose : 15 mg = 1 tab(s), Oral, qDay, # 90 tab(s), 2 Refill(s), Pharmacy: [facility], Arthritis, 175, cm, 10/20/20 10:15:00 EDT, [...] 08/09/2024, # 60 cap(s), 2 Refill(s), Pharmacy: [facility], Chronic back pain Back pain with [...] qDay, # 30 cap(s), 2 Refill(s), Pharmacy: [facility], Failed back surgical syndrome Arthritis of [...] for mild enthesopathic spur formation. IMPRESSION: 1. [id number] osteoarthritis of the left hip. Other nutritional; [...] US BREAST RIGHT LIMITED [facility]IG[facility]AL FROM: [facility] [address], [place] [address] PROCEDURE FOR: FILIBERTO Sherman SHOSHANA [address] [place] [address] Home: PID#: [id number] Exam#: [id number] : 1955 Age: 69 TO: CANDY WOODSON SHUTTLE PREPARATION SUPERVISOR GRATED 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 [address] [place], [place] [address] Fax: NO FAX EXAMINATION: ULTRASOUND OF THE [...] 12/26/2024 7:00:43 PM Ordering Provider: CANDY WOODSON Advertising Assistant Manager: TRACEY INIGUEZ RT(Howard)(M) RDHI letter sent: Probably Benign BI-RADS 3 Ultrasound BI-RADS: 3 Probably benign Normal [facility] .GFRon 12-03-2024 Estimated Glomerular Filtration Rate 64 ml/min/1.73sqm Normal [facility] Comment on above: Result Comment: Stages of [...] #### C MP, VIDH, GFR, LIPID ####[address] [place], [place] [address] CMPon 12-03-2024 Albumin Level 3.4 G/dL Normal 3.4-4.8 [facility] Comment on above: Performed By: #### C MP, VIDH, GFR, LIPID ####[address] [place], [place] [address] Albumin/Globulin [Mass ratio] 0.8 {ratio} Low 1.1-2.5 [facility] Comment on above: Performed By: #### C MP, VIDH, GFR, LIPID ####[place] [address] [place], [place] [address] ALP [Catalytic activity/Vol] 96 U/L Normal 40-135 [facility] Comment on above: Performed By: #### C MP, VIDH, GFR, LIPID ####[facility] [place], [place] [address] ALT [Catalytic activity/Vol] 29 U/L Normal 14-59 [facility] Comment on above: Performed By: #### C MP, VIDH, GFR, LIPID ####[address] [place], [place] [address] AST [Catalytic activity/Vol] 21 U/L Normal 10-40 [facility] Comment on above: Performed By: #### C MP, VIDH, GFR, LIPID ####[address] [place], [place] [address] Bili Total 0.3 mg/dL Normal 0.2-1.0 [facility] Comment on above: Result Comment: Use of this assay is not recommended for patients undergoing treatment with eltrombopag due to the potential for falsely elevated results. Performed By: #### C MP, VIDH, GFR, LIPID ####[address] [address] BUN/Creatinine Ratio 27 ratio Normal 7-27 [facility] Comment on above: Performed By: #### C MP, VIDH, GFR, LIPID ####[address] [address] Calcium [Mass/Vol] 8.8 mg/dL Normal 8.4-10.2 [facility] Comment on above: Performed By: #### C MP, VIDH, GFR, LIPID ####[address] [address] Chloride [Moles/Vol] 106 mmol/L Normal 98-107 [facility] Comment on above: Performed By: #### C MP, VIDH, GFR, LIPID ####[address] [address] CO2 [Moles/Vol] 26 mmol/L Normal 23-31 [facility] Comment on above: Performed By: #### C MP, VIDH, GFR, LIPID ####[address] [place], [place] [address] Creatinine [Mass/Vol] 0.95 mg/dL Normal 0.51-0.95 [facility] Comment on above: Performed By: #### C MP, VIDH, GFR, LIPID ####[address] [place], [place] [address] Electrolyte Balance 8.0 mEq/L Normal 4.0-15.0 [facility] Comment on above: Performed By: #### C MP, VIDH, GFR, LIPID ####[address] [place], [place] [address] Globulin 4.0 G/dL Normal 2.7-4.4 [facility] Comment on above: Performed By: #### C MP, VIDH, GFR, LIPID ####[address] [place], [place] [address] Glucose [Mass/Vol] 77 mg/dL Low 83-110 [facility] Comment on above: Performed By: #### C MP, VIDH, GFR, LIPID ####[address] [place], [place] [address] Potassium [Moles/Vol] 5.1 mmol/L Normal 3.5-5.1 [facility] Comment on above: Performed By: #### C MP, VIDH, GFR, LIPID ####[address] [place], [place] [address] Sodium [Moles/Vol] 140 mmol/L Normal 136-145 [facility] Comment on above: Performed By: #### C MP, VIDH, GFR, LIPID ####[address] [place], [place] [address] Total Protein 7.4 G/dL Normal 6.4-8.2 [facility] Comment on above: Performed By: #### C MP, VIDH, GFR, LIPID ####[address] [place], [place] [address] Urea nitrogen [Mass/Vol] 26 mg/dL High 7-18 [facility] Comment on above: Performed By: #### C MP, VIDH, GFR, LIPID ####[address] [place], [place] [address] LABORATORYOrdered By: SYSTEM SYSTEM on 12-03-2024 25-hydroxyvitamin [...] 12-03-2024 Cholesterol [Mass/Vol] 171 mg/dL Normal 0-200 [facility] Comment on above: Result Comment: Chol esterol Reference Interval: Less than 200 Desirable 200-239 Borderline high risk 240 and above High risk Performed By: #### C NICOLE, VIDH, GFR, LIPID ####[address] [place], [place] [address] Cholesterol in HDL [Mass/Vol] 49 mg/dL Normal 40-60 [facility] Comment on above: Performed By: #### C NICOLE, VILORENA, GFR, LIPID ####[facility] [place], [place] [address] Cholesterol in LDL [Mass/Vol] 93 mg/dL Normal 0-130 [facility] Comment on above: Performed By: #### C NICOLE, VIDH, GFR, LIPID ####[address] [place], [place] [address] Triglyceride [Mass/Vol] 144 mg/dL Normal 0-150 [facility] Comment on above: Result Comment: Trig lyceride Reference Interval: Less than 150 Normal 150-199 Borderline high risk 200-499 High risk 500 or higher Very high risk Performed By: #### C MP, VIDH, GFR, LIPID ####[address] [place], [place] [address] VIDHon 12-03-2024 Vit. D 25-Hydroxy 32.8 ng/mL Normal [facility] Comment on above: Result Comment: Inte rpretive Values Based on Total 25(OH) Vitamin D: Deficient <20 ng/mL Insufficient 20 - <30 ng/mL Sufficient 30-100 ng/mL Performed By: #### C MP, VIDH, GFR, LIPID ####[address] [place], [place] [address] Absolute neutrophil countOrd ered By: Yaniv Pitts on 08-19-2024 Neutrophils (Bld) [#/Vol] 4.8 10*3/uL 2.0-7.7 [facility] Basophil percentageOrdered B y: Yaniv Pitts on 08-19-2024 Basophils/100 WBC (Bld) 0.3 % 0-1 [facility] CBC W/Diff, Automatedon 08-03 Absolute Lymph 1.85 X10 3/uL Normal 0.83-4.51 [facility] Comment on above: Performed By: #### L 300.3900, L100.0100, L300.4310 #### [facility] [address] [place], [address] Absolute Neut 4.8 X10 3/uL Normal 2.0-7.7 [facility] Comment on above: Performed By: #### L 300.3900, L100.0100, L300.4310 #### [facility] [address] [place], [address] Basophils/100 WBC (Bld) 0.3 % Normal 0-1 [facility] Comment on above: Performed By: #### L 300.3900, L100.0100, L300.4310 #### [facility] [address] [place], [address] Eosinophils/100 WBC (Bld) 1.0 % Normal 0-5 [facility] Comment on above: Performed By: #### L 300.3900, L100.0100, L300.4310 #### [facility] [address] [place], [address] Erythrocyte distribution width (RBC) [Ratio] 14.3 % Normal 11.6-14.6 [facility] Comment on above: Performed By: #### L 300.3900, L100.0100, L300.4310 #### [facility] [address] [place], [address] Hematocrit (Bld) [Volume fraction] 42.6 % Normal 37-47 [facility] Comment on above: Performed By: #### L 300.3900, L100.0100, L300.4310 #### [facility] [address] [place], [address] Hemoglobin (Bld) [Mass/Vol] 14.0 g/dL Normal 12.0-15.0 [facility] Comment on above: Performed By: #### L 300.3900, L100.0100, L300.4310 #### [facility] [address] [place], [address] IG% 0.400 Normal 0.0-0.9 [facility] Comment on above: Result Comment: IG% - Immature Granulocytes (promyelocytes, myelocytes and metamyelocytes) > 1% indicates that a LEFT SHIFT is Present. Performed By: #### L 300.3900, L100.0100, L300.4310 #### [facility] [address] [place], [address] Lymphocytes/100 WBC (Bld) 25.2 % Normal 19-41 [facility] Comment on above: Performed By: #### L 300.3900, L100.0100, L300.4310 #### [facility] [address] [place], [address] MCH (RBC) [Entitic mass] 30.6 pg Normal 27.0-32.0 [facility] Comment on above: Performed By: #### L 300.3900, L100.0100, L300.4310 #### [facility] [address] [place], [address] MCHC (RBC) [Mass/Vol] 32.9 g/dL Normal 32-36 [facility] Comment on above: Performed By: #### L 300.3900, L100.0100, L300.4310 #### [facility] [address] [place], [address] MCV (RBC) [Entitic vol] 93.2 fL Normal 81-99 [facility] Comment on above: Performed By: #### L 300.3900, L100.0100, L300.4310 #### [facility] [address] [place], [address] Monocytes/100 WBC (Bld) 8.0 % Normal 0-10 [facility] Comment on above: Performed By: #### L 300.3900, L100.0100, L300.4310 #### [facility] [address] [place], [address] Neutrophils/100 WBC (Bld) 65.1 % Normal 47-70 [facility] Comment on above: Performed By: #### L 300.3900, L100.0100, L300.4310 #### [facility] [address] [place], [address] Nucleated RBC (Bld) [#/Vol] 0 10*3/uL Normal 0-5 [facility] Comment on above: Performed By: #### L 300.3900, L100.0100, L300.4310 #### [facility] [address] [place], [address] Platelet mean volume (Bld) [Entitic vol] 10.4 fL Normal 6.2-12.0 [facility] Comment on above: Performed By: #### L 300.3900, L100.0100, L300.4310 #### [facility] [address] [place], [address] Platelets (Bld) [#/Vol] 275 10*3/uL Normal 150-450 [facility] Comment on above: Performed By: #### L 300.3900, L100.0100, L300.4310 #### [facility] [address] [place], [address] RBC (Bld) [#/Vol] 4.57 10*6/uL Normal 4.2-5.4 [facility] Comment on above: Performed By: #### L 300.3900, L100.0100, L300.4310 #### [facility] [address] [place], [address] RDW SD 49.1 fl High 35.1-43.9 [facility] Comment on above: Performed By: #### L 300.3900, L100.0100, L300.4310 #### [facility] [address] [place], [address] WBC (Bld) [#/Vol] 7.3 10*3/uL Normal 4.4-11.0 [facility] Comment on above: Performed By: #### L 300.3900, L100.0100, L300.4310 #### [facility] [address] [place], [address] Eosinophil percentageOrdered By: Yaniv Pitts on 08-19-2024 Eosinophils/100 WBC (Bld) 1.0 % 0-5 [facility] Erythrocyte distribution wid th ratioOrdered By: Yaniv Pitts on 08-19-2024 Erythrocyte distribution width (RBC) [Ratio] 14.3 % 11.6-14.6 [facility] Erythrocyte distribution wid th standard deviationOrdered By: Yaniv Pitts on 08-19-2024 Erythrocyte distribution width (RBC) [Entitic vol] 49.1 fL High 35.1-43.9 [facility] Hematocrit Auto (Bld) [Volum e fraction]Ordered By: Yaniv Pitts on 08-19-2024 Hematocrit (Bld) [Volume fraction] 42.6 % 37-47 [facility] Hemoglobin measurementOrdere d By: Yaniv Pitts on 08-19-2024 Hemoglobin (Bld) [Mass/Vol] 14.0 g/dL 12.0-15.0 [facility] Immature granulocytes/100 WB C Auto (Bld)Ordered By: Yaniv Pitts on 08-19-2024 Immature granulocytes/100 WBC (Bld) 0.400 % 0.0-0.9 [facility] Comment on above: IG% - Immature Granu locytes (promyelocytes, myelocytes and metamyelocytes) > 1% indicates that a LEFT SHIFT is Present. International normalized rat io (INR) calculationOrdered By: Yaniv Pitts on 08-19-2024 INR Coag (Bld) [Relative time] 1.0 {INR} [facility] Lumbar Myelogramon Lumbar Myelogram [facility] [address] [place], [place] [id number] Lumbar Myelogram MR#: [id number] Acct: [id number] Name: FILIBERTO VALDIVIA Rep #: [id number] : 1955 F 69 From: Yaniv willams MD PCP: Candy Woodson, FRAMING MILL OPERATOR HELPER-C Status: REG CLI Study: Lumbar Myelogram Date of Exam: 08/19/24 Exam# [id number] Ordering Dr: Danielle Castillo PROCEDURE: LUMBAR MYELOGRAM [...] well. CT we will follow. Reading Location: [place] [address] CC: FRAMING MILL OPERATOR HELPERСергей Woodson; HELIO Castillo Educational Fundraising Director: Signed Normal [facility] Lymphocytes Auto (Unsp spec) [#/Vol]Ordered By: Yaniv Pitts on 08-19-2024 Lymphocytes (Bld) [#/Vol] 1.85 10*3/uL 0.83-4.51 [facility] Lymphocytes/100 WBC Auto (Un sp spec)Ordered By: Yaniv Pitts on 08-19-2024 Lymphocytes/100 WBC (Bld) 25.2 % 19-41 [facility] MCV (mean corpuscular volume ) determinationOrdered By: Yaniv Pitts on 08-19-2024 MCV (RBC) [Entitic vol] 93.2 fL 81-99 [facility] Mean corpuscular hemoglobin (MCH) determinationOrdered By: Yaniv Pitts on 08-19-2024 MCH (RBC) [Entitic mass] 30.6 pg 27.0-32.0 [facility] Mean corpuscular hemoglobin concentration (MCHC) determinationOrdered By: Yaniv Pitts on 08-19-2024 MCHC (RBC) [Mass/Vol] 32.9 g/dL 32-36 [facility] Mean platelet volume determi nationOrdered By: Yaniv Pitts on 08-19-2024 Platelet mean volume (Bld) [Entitic vol] 10.4 fL 6.2-12.0 [facility] Monocyte percentageOrdered B y: Yaniv Pitts on 08-19-2024 Monocytes/100 WBC (Bld) 8.0 % 0-10 [facility] Neutrophil percentageOrdered By: Yaniv Pitts on 08-19-2024 Neutrophils/100 WBC (Bld) 65.1 % 47-70 [facility] Nucleated red blood cell per centageOrdered By: Yaniv Pitts on 08-19-2024 Nucleated RBC/100 WBC (Bld) [Ratio] 0 % 0-5 [facility] Partial Thromboplast Timeon 08-19-2024 aPTT Coag (Bld) [Time] 23.6 s Low 24.1-36.2 [facility] Comment on above: Performed By: #### L 300.3900, L100.0100, L300.4310 #### [facility] [address] [facility] [place], [place], [address] Platelet countOrdered By: Galindo Pitts on 08-19-2024 Platelets (Bld) [#/Vol] 275 10*3/uL 150-450 [facility] Prothrombin Time w/INRon INR Coag (PPP) [Relative time] 1.0 {INR} Normal [facility] Comment on above: Performed By: #### L 300.3900, L100.0100, L300.4310 #### [facility] [address] [place], [place], [address] PT Coag (PPP) [Time] 13.1 s Normal 11.7-14.9 [facility] Comment on above: Performed By: #### L 300.3900, L100.0100, L300.4310 #### [facility] [address] [place], [address] Prothrombin timeOrdered By: Yaniv Pitts on 08-19-2024 PT Coag (PPP) [Time] 13.1 s 11.7-14.9 [facility] RBC Auto (Bld) [#/Vol]Ordere d By: Yaniv Pitts on 08-19-2024 RBC (Bld) [#/Vol] 4.57 10*6/uL 4.2-5.4 [facility] Spine Lumbar WITH Contraston 08-19-2024 Spine Lumbar WITH Contrast [facility] [address] [place] [address] Spine Lumbar WITH Contrast MR#: [id number] Acct: [id number] Name: FILIBERTO VALDIVIA Rep #: [id number] : 1955 F 69 From: Yaniv willams MD PCP: Candy Woodson, FRAMING MILL OPERATOR HELPER-C Status: REG CLI Study: Spine Lumbar WITH Contrast Date of Exam: 08/19 Exam# [id number] Ordering Dr: Danielle Castillo PROCEDURE: SPINE LUMBAR [...] at the L5- S1 level. Reading Location: [place] [address] CC: SCOOTER Woodson; HELIO Castillo Educational Fundraising Director: Signed Normal [facility] White blood cell (WBC) count Ordered By: Yaniv Pitts on 08-19-2024 WBC (Bld) [#/Vol] 7.3 10*3/uL 4.4-11.0 [facility] aPTT Coag (PPP) [Time]Ordere d By: Yaniv Pitts on 08-19-2024 aPTT Coag (Bld) [Time] 23.6 s Low 24.1-36.2 [facility] UDRUGon 08-16-2024 Amphetamine (u) Negative Normal Negative [facility] Comment on above: Performed By: #### U DRUG #### [address] [address] Barbiturate (u) Negative Normal Negative [facility] Comment on above: Performed By: #### U DRUG #### [address] [address] Benzodiazepine (u) Negative Normal Negative [facility] Comment on above: Performed By: #### U DRUG #### [address] [address] Cannabinoid (u) Negative Normal Negative [facility] Comment on above: Performed By: #### U DRUG #### [address] [address] Cocaine Ql (U) Negative Normal Negative [facility] Comment on above: Performed By: #### U DRUG #### [address] [address] Methadone Ql (U) Negative Normal Negative [facility] Comment on above: Performed By: #### U DRUG #### [place] [address] Opiate (u) Negative Normal Negative [facility] Comment on above: Performed By: #### U DRUG #### [place] [address] PCP (u) Negative Normal Negative [facility] Comment on above: Performed By: #### U DRUG #### [place] [address] Urine Drugs screened: See Below Normal [facility] Comment on above: Result Comment: This drug [...] ONLY. Performed By: #### U DRUG #### [place] [id number] XR HIP 2-3 VIEWS LEFTon 06-05 XR [...] remarkable for mild enthesopathic spur formation. IMPRESSION: Xysv-mi-[id number] osteoarthritis of the left hip. 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 BIRADS: BI-RADS: 0: Incomplete: Need Additional Imaging Evaluation RECALL: immediate RECALL TYPE: US LETTER SENT: Abnormal-Needs additional work up BI-RADS 0 Interpreted by: Felisa De Leon MD Preliminary Report By: Felias De Leon MD Electronically signed By Felisa De Leon MD Dictated Date: 05/30/2024 9:15:15 AM Prelim Date: 05/30/2024 10:06:40 AM Sign Date: 05/30/2024 10:06:40 AM Ordering Provider: CANDY WOODSON CLINICAL: PALPABLE LUMP RIGHT BREAST. 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 BIRADS: BI-RADS: 3: Probably Benign [...] CANDY WOODSON CLINICAL: PALPABLE LUMP RIGHT BREAST. Advertising Assistant Manager: TRACEY INIGUEZ RT(R)(M) RDMS letter sent: Probably Benign BI-RADS 3 Ultrasound BI-RADS: 3 Probably benign Normal [facility] XR HIP 2-3 VIEWS RIGHTon XR HIP [...] 04/19/2024 2:46:28 PM Ordering Provider: MAURIZIO Shirley [facility] XR SPINE LUMBAR AP/LATon XR SPINE LUMBAR [...] 04/19/2024 2:52:45 PM Ordering Provider: MAURIZIO Shirley [facility] .Auto Diffon 04-15-2024 Basophil, Absolute 0.0 10 3/mcL Normal 0.0-0.2 [facility] Comment on above: Performed By: #### C BC, GFR, ADIFF, LIPID, CMP, VIDH, ANEU #### [address] [address] Basophils/100 WBC (Bld) 0.5 % Normal 0.0-2.5 [facility] Comment on above: Performed By: #### C BC, GFR, ADIFF, LIPID, CMP, VIDH, ANEU #### [address] [address] Eosinophil, Absolute 0.3 10 3/mcL Normal 0.0-0.7 [facility] Comment on above: Performed By: #### C BC, GFR, ADIFF, LIPID, CMP, VIDH, ANEU #### [address] [address] Eosinophils/100 WBC (Bld) 4.1 % Normal 0.0-7.0 [facility] Comment on above: Performed By: #### C BC, GFR, ADIFF, LIPID, CMP, VIDH, ANEU #### [address] [address] Lymphocyte, Absolute 1.8 10 3/mcL Normal 0.9-4.3 [facility] Comment on above: Performed By: #### C BC, GFR, ADIFF, LIPID, CMP, VIDH, ANEU #### [address] [address] Lymphocytes/100 WBC (Bld) 23.4 % Normal 20.0-40.0 [facility] Comment on above: Performed By: #### C BC, GFR, ADIFF, LIPID, CMP, VIDH, ANEU #### [address] [address] Monocyte, Absolute 0.8 10 3/mcL Normal 0.1-1.4 [facility] Comment on above: Performed By: #### C BC, GFR, ADIFF, LIPID, CMP, VIDH, ANEU #### [address] [address] Monocytes/100 WBC (Bld) 10.1 % Normal 2.0-13.0 [facility] Comment on above: Performed By: #### C BC, GFR, ADIFF, LIPID, CMP, VIDH, ANEU #### [address] [address] Neutrophils/100 WBC (Bld) 61.9 % Normal 50.0-75.0 [facility] Comment on above: Performed By: #### C BC, GFR, ADIFF, LIPID, CMP, VIDH, ANEU #### [address] [address] .GFRon 04-15-2024 GFR 72 ml/min/1.73sqm Normal [facility] Comment on above: Result Comment: GFR Population [...] GFR, ADIFF, LIPID, CMP, VIDH, ANEU #### [address] [address] GFR Non- 60 ml/min/1.73sqm Normal [facility] Comment on above: Result Comment: GFR Population [...] GFR, ADIFF, LIPID, CMP, VIDH, ANEU #### [address] [address] .NEUABSon 04-15-2024 Neutrophil, Absolute 4.6 10 3/mcL Normal 2.3-8.1 [facility] Comment on above: Performed By: #### C BC, GFR, ADIFF, LIPID, CMP, VIDH, ANEU #### [address] [address] CBCon 04-15-2024 Erythrocyte distribution width (RBC) [Ratio] 14.2 % Normal 11.5-15.5 [facility] Comment on above: Performed By: #### C BC, GFR, ADIFF, LIPID, CMP, VIDH, ANEU #### [place] [address] Hematocrit (Bld) [Volume fraction] 40.2 % Normal 34.0-46.0 [facility] Comment on above: Performed By: #### C BC, GFR, ADIFF, LIPID, CMP, VIDH, ANEU #### [place] [id number] Hgb 13.4 G/dL Normal 12.0-16.0 [facility] Comment on above: Performed By: #### C BC, GFR, ADIFF, LIPID, CMP, VIDH, ANEU #### [place] [address] MCH (RBC) [Entitic mass] 30.7 pg Normal 27.0-33.0 [facility] Comment on above: Performed By: #### C BC, GFR, ADIFF, LIPID, CMP, VIDH, ANEU #### [address] [address] MCHC 33.2 G/dL Normal 32.0-36.0 [facility] Comment on above: Performed By: #### C BC, GFR, ADIFF, LIPID, CMP, VIDH, ANEU #### [address] [address] MCV (RBC) [Entitic vol] 92.5 fL Normal 80.0-99.0 [facility] Comment on above: Performed By: #### C BC, GFR, ADIFF, LIPID, CMP, VIDH, ANEU #### [address] [address] Platelet 290 10 3/mcL Normal 150-450 [facility] Comment on above: Performed By: #### C BC, GFR, ADIFF, LIPID, CMP, VIDH, ANEU #### [address] [address] Platelet mean volume (Bld) [Entitic vol] 8.4 fL Normal 6.6-10.5 [facility] Comment on above: Performed By: #### C BC, GFR, ADIFF, LIPID, CMP, VIDH, ANEU #### [address] [address] RBC 4.35 10 6/mcL Normal 4.10-5.30 [facility] Comment on above: Performed By: #### C BC, GFR, ADIFF, LIPID, CMP, VIDH, ANEU #### [address] [address] WBC 7.5 10 3/mcL Normal 4.5-10.8 [facility] Comment on above: Performed By: #### C BC, GFR, ADIFF, LIPID, CMP, VIDH, ANEU #### [address] [address] CMPon 04-15-2024 Albumin Level 3.6 G/dL Normal 3.4-4.8 [facility] Comment on above: Performed By: #### C BC, GFR, ADIFF, LIPID, CMP, VIDH, ANEU #### [address] [address] Albumin/Globulin [Mass ratio] 1.2 {ratio} Normal 1.1-2.5 [facility] Comment on above: Performed By: #### C BC, GFR, ADIFF, LIPID, CMP, VIDH, ANEU #### [address] [address] ALP [Catalytic activity/Vol] 117 U/L Normal 40-135 [facility] Comment on above: Performed By: #### C BC, GFR, ADIFF, LIPID, CMP, VIDH, ANEU #### [address] [address] ALT [Catalytic activity/Vol] 30 U/L Normal 14-59 [facility] Comment on above: Performed By: #### C BC, GFR, ADIFF, LIPID, CMP, VIDH, ANEU #### [place] [address] AST [Catalytic activity/Vol] 29 U/L Normal 10-40 [facility] Comment on above: Performed By: #### C BC, GFR, ADIFF, LIPID, CMP, VIDH, ANEU #### [address] [address] Bili Total 0.4 mg/dL Normal 0.2-1.0 [facility] Comment on above: Result Comment: Use of this assay is not recommended for patients undergoing treatment with eltrombopag due to the potential for falsely elevated results. Performed By: #### C BC, GFR, ADIFF, LIPID, CMP, VIDH, ANEU #### [address] [address] BUN/Creatinine Ratio 24 ratio Normal 7-27 [facility] Comment on above: Performed By: #### C BC, GFR, ADIFF, LIPID, CMP, VIDH, ANEU #### [address] [address] Calcium [Mass/Vol] 9.5 mg/dL Normal 8.4-10.2 [facility] Comment on above: Performed By: #### C BC, GFR, ADIFF, LIPID, CMP, VIDH, ANEU #### [address] [address] Chloride [Moles/Vol] 105 mmol/L Normal 98-107 [facility] Comment on above: Performed By: #### C BC, GFR, ADIFF, LIPID, CMP, VIDH, ANEU #### [address] [address] CO2 [Moles/Vol] 31 mmol/L Normal 23-31 [facility] Comment on above: Performed By: #### C BC, GFR, ADIFF, LIPID, CMP, VIDH, ANEU #### [place] [id number] Creatinine [Mass/Vol] 0.93 mg/dL Normal 0.55-1.02 [facility] Comment on above: Result Comment: Test ing performed on Siemens Dimension EXL analyzer using a modified kinetic Tish technique. Performed By: #### C BC, GFR, ADIFF, LIPID, CMP, VIDH, ANEU #### [address] [address] Electrolyte Balance 3.0 mEq/L Low 4.0-15.0 [facility] Comment on above: Performed By: #### C BC, GFR, ADIFF, LIPID, CMP, VIDH, ANEU #### [address] [address] Globulin 3.1 G/dL Normal [facility] Comment on above: Performed By: #### C BC, GFR, ADIFF, LIPID, CMP, VIDH, ANEU #### [address] [address] Glucose [Mass/Vol] 80 mg/dL Low 83-110 [facility] Comment on above: Performed By: #### C BC, GFR, ADIFF, LIPID, CMP, VIDH, ANEU #### [address] [address] Potassium [Moles/Vol] 6.0 mmol/L High 3.5-5.1 [facility] Comment on above: Performed By: #### C BC, GFR, ADIFF, LIPID, CMP, VIDH, ANEU #### [address] [address] Sodium [Moles/Vol] 139 mmol/L Normal 136-145 [facility] Comment on above: Performed By: #### C BC, GFR, ADIFF, LIPID, CMP, VIDH, ANEU #### [address] [address] Total Protein 6.7 G/dL Normal 6.4-8.2 [facility] Comment on above: Performed By: #### C BC, GFR, ADIFF, LIPID, CMP, VIDH, ANEU #### [address] [address] Urea nitrogen [Mass/Vol] 22 mg/dL High 7-18 [facility] Comment on above: Performed By: #### C BC, GFR, ADIFF, LIPID, CMP, VIDH, ANEU #### [address] [address] LABORATORYOrdered By: Susan Quinones on 04-15-2024 Albumin [...] 04-15-2024 Cholesterol [Mass/Vol] 168 mg/dL Normal 0-200 [facility] Comment on above: Result Comment: Chol esterol Reference Interval: Less than 200 Desirable 200-239 Borderline high risk 240 and above High risk Performed By: #### C BC, GFR, ADIFF, LIPID, CMP, VIDH, ANEU #### [address] [address] Cholesterol in HDL [Mass/Vol] 49 mg/dL Normal 40-60 [facility] Comment on above: Performed By: #### C BC, GFR, ADIFF, LIPID, CMP, VIDH, ANEU #### [address] [address] Cholesterol in LDL [Mass/Vol] 97 mg/dL Normal 0-130 [facility] Comment on above: Performed By: #### C BC, GFR, ADIFF, LIPID, CMP, VIDH, ANEU #### [address] [address] Triglyceride [Mass/Vol] 112 mg/dL Normal 0-150 [facility] Comment on above: Result Comment: Trig lyceride Reference Interval: Less than 150 Normal 150-199 Borderline high risk 200-499 High risk 500 or higher Very high risk Performed By: #### C BC, GFR, ADIFF, LIPID, CMP, VIDH, ANEU #### [address] [address] MALBRon 04-15-2024 U Creatinine 113.3 mg/dL Normal 28.0-117.0 [facility] Comment on above: Performed By: #### M ALBR ####[address] [address] U Microalb 1495 mcg/dL Normal [facility] Comment on above: Performed By: #### M ALBR ####[address] [address] U Ratio Alb/Cre 13 mcg/mg Normal 0-30 [facility] Comment on above: Performed By: #### M ALBR ####[facility] [place], [place] [address] VIDHon 04-15-2024 Vit. D 25-Hydroxy 46.2 ng/mL Normal [facility] Comment on above: Result Comment: Inte rpretive Values Based on Total 25(OH) Vitamin D: Deficient <20 ng/mL Insufficient 20 - <30 ng/mL Sufficient 30-100 ng/mL Performed By: #### C BC, GFR, ADIFF, LIPID, CMP, VIDH, ANEU #### [facility] [address] [place], [place] [address] Breast Limited Unilateralon 10-20-2023 Breast Limited Unilateral [facility] [address] [place] [address] Breast Limited Unilateral MR#: [id number] Acct: [id number] Name: FILIBERTO VALDIVIA Rep #: [id number] : 1955 F 68 From: Candy Tao MD PCP: SCOOTER Newton Status: [facility] CLI Study: Breast Limited Unilateral Date of Exam: Exam# [id number] Ordering Dr: Candy Woodson NP FRAMING MILL OPERATOR HELPER-C -[id number] STUDY: ULTRASOUND BREAST - RIGHT REASON [...] Tao MD at 11:16 EDT , CC: FRAMING MILL OPERATOR HELPER-C Candy Woodson Educational Fundraising Director: Signed Normal [facility] DIAG MAMM W/CAD, BILATon DIAG MAMM W/CAD, [facility] Imaging Services [address] [place] [address] DIAG MAMM W/CAD, BIL MR#: [id number] Acct: [id number] Name: FILIBERTO VALDIVIA Rep #: [id number] : 1955 F 68 From: Yaniv willams MD PCP: SCOOTER Newton Status: REG I Study: DIAG MAMM W/CAD, BILAT Date of Exam: 10/20/23 Exam# [id number] Ordering Dr: Candy Woodson NP -[id number] MAMMOGRAPHY - BILATERAL DIAGNOSTIC REASON FOR [...] 15:04 EDT Reading Location ID and State: [facility] / [place] , Service support , CC: SCOOTER Woodson Educational Fundraising Director: Signed Normal [facility] .GFRon 10-06-2023 GFR 80 ml/min/1.73sqm Normal [facility] ([place]) Comment on above: Result Comment: GFR Population [...] #### C MP, LIPID, VIDH, GFR #### [address] [address] GFR Non- 66 ml/min/1.73sqm Normal [facility] ([place]) Comment on above: Result Comment: GFR Population [...] #### C MP, LIPID, VIDH, GFR #### [address] [address] CMPon 10-06-2023 Albumin Level 3.6 G/dL Normal 3.4-4.8 [facility] ([place]) Comment on above: Performed By: #### C MP, LIPID, VIDH, GFR #### [address] [address] Albumin/Globulin [Mass ratio] 1.0 {ratio} Low 1.1-2.5 [facility] ([place]) Comment on above: Performed By: #### C MP, LIPID, VIDH, GFR #### [address] [address] ALP [Catalytic activity/Vol] 132 U/L Normal 40-135 [facility] ([place]) Comment on above: Performed By: #### C MP, LIPID, VIDH, GFR #### [address] [address] ALT [Catalytic activity/Vol] 25 U/L Normal 14-59 [facility] ([place]) Comment on above: Performed By: #### C MP, LIPID, VIDH, GFR #### [address] [address] AST [Catalytic activity/Vol] 18 U/L Normal 10-40 [facility] ([place]) Comment on above: Performed By: #### C MP, LIPID, VIDH, GFR #### [address] [address] Bili Total 0.4 mg/dL Normal 0.2-1.0 [facility] ([place]) Comment on above: Result Comment: Use of this assay is not recommended for patients undergoing treatment with eltrombopag due to the potential for falsely elevated results. Performed By: #### C MP, LIPID, VIDH, GFR #### [place] [id number] BUN/Creatinine Ratio 22 ratio Normal 7-27 [facility] ([place]) Comment on above: Performed By: #### C MP, LIPID, VIDH, GFR #### [address] [address] Calcium [Mass/Vol] 9.2 mg/dL Normal 8.4-10.2 [facility] ([place]) Comment on above: Performed By: #### C MP, LIPID, VIDH, GFR #### [address] [address] Chloride [Moles/Vol] 104 mmol/L Normal 98-107 [facility] ([place]) Comment on above: Performed By: #### C MP, LIPID, VIDH, GFR #### [address] [address] CO2 [Moles/Vol] 27 mmol/L Normal 23-31 [facility] ([place]) Comment on above: Performed By: #### C MP, LIPID, VIDH, GFR #### [address] [address] Creatinine [Mass/Vol] 0.85 mg/dL Normal 0.55-1.02 [facility] ([place]) Comment on above: Performed By: #### C MP, LIPID, VIDH, GFR #### [address] [address] Electrolyte Balance 11.0 mEq/L Normal 4.0-15.0 [facility] ([place]) Comment on above: Performed By: #### C MP, LIPID, VIDH, GFR #### [address] [address] Globulin 3.6 G/dL Normal [facility] ([place]) Comment on above: Performed By: #### C MP, LIPID, VIDH, GFR #### [address] [address] Glucose [Mass/Vol] 87 mg/dL Normal 83-110 [facility] ([place]) Comment on above: Performed By: #### C MP, LIPID, VIDH, GFR #### [address] [address] Potassium [Moles/Vol] 4.9 mmol/L Normal 3.5-5.1 [facility] ([place]) Comment on above: Performed By: #### C MP, LIPID, VIDH, GFR #### [address] [address] Sodium [Moles/Vol] 142 mmol/L Normal 136-145 [facility] ([place]) Comment on above: Performed By: #### C MP, LIPID, VIDH, GFR #### [address] [address] Total Protein 7.2 G/dL Normal 6.4-8.2 [facility] ([place]) Comment on above: Performed By: #### C MP, LIPID, VIDH, GFR #### [address] [address] Urea nitrogen [Mass/Vol] 19 mg/dL High 7-18 [facility] ([place]) Comment on above: Performed By: #### C MP, LIPID, VIDH, GFR #### [address] [address] LABORATORYOrdered By: SYSTEM SYSTEM on 10-06-2023 25-hydroxyvitamin [...] 10-06-2023 Cholesterol [Mass/Vol] 195 mg/dL Normal 0-200 [facility] ([place]) Comment on above: Result Comment: Chol esterol Reference Interval: Less than 200 Desirable 200-239 Borderline high risk 240 and above High risk Performed By: #### C MP, LIPID, VIDH, GFR #### [address] [address] Cholesterol in HDL [Mass/Vol] 55 mg/dL Normal 40-60 [facility] ([place]) Comment on above: Performed By: #### C MP, LIPID, VIDH, GFR #### [address] [address] Cholesterol in LDL [Mass/Vol] 104 mg/dL Normal 0-130 [facility] ([place]) Comment on above: Performed By: #### C MP, LIPID, VIDH, GFR #### [address] [address] Triglyceride [Mass/Vol] 179 mg/dL High 0-150 [facility] ([place]) Comment on above: Result Comment: Trig lyceride Reference Interval: Less than 150 Normal 150-199 Borderline high risk 200-499 High risk 500 or higher Very high risk Performed By: #### C MP, LIPID, VIDH, GFR #### [address] [address] VIDHon 10-06-2023 Vit. D 25-Hydroxy 37.7 ng/mL Normal [facility] ([place]) Comment on above: Result Comment: Inte rpretive Values Based on Total 25(OH) Vitamin D: Deficient <20 ng/mL Insufficient 20 - <30 ng/mL Sufficient 30-100 ng/mL Performed By: #### C MP, LIPID, VIDH, GFR #### [address] [address] Re-Evaluation - PT (1)on Re-Evaluation - PT (1) [facility] [address] [place] [address] / REEVALUATION / MEDICARE RECERTIFICATION PHYSICAL THERAPY MR#: [id number] Acct: [id number] Name: FILIBERTO VALDIVIA Rep #: [id number] : 1955 68 From: Sukhi Evans PT, ATC Referring Dr.: Dr. Ava Castle DO Status: REG RCR Insurance: MEDICARE PART A B [facility] Re-Evaluation Intro: Dr. Ava Castle, , It [...] do not hesitate to contact me at [phone] by phone or if you have questions or concerns regarding this new plan of care! Sincerely, Sukhi Evans, PT, ATC 09/01/23 1036 CC: SCOOTER Woodson; Dr. Ava Castle, [facility] Signed For Medicare only, by signing this I certify the plan of care. _ Physicians Signature Date Normal [facility] Absolute lymphocyte countOrd ered By: connercentervillekimberli Mark on 06-22-2023 Lymphocytes Auto (Unsp spec) [#/Vol] 1.71 10*3/uL 0.83-4.51 [facility] Automated lymphocyte count a s percentage of total leukocytesOrdered By: connercentervillekimberli Mark on 06-22-2023 Lymphocytes/100 WBC Auto (Unsp spec) 33.5 % 19-41 [facility] Basophil percentageOrdered B y: Jessica Mark on 06-22-2023 Basophils/100 WBC (Bld) 0.6 % 0-1 [facility] Chloride [Moles/Vol] 108 mmol/L 98-107 [facility] Eosinophils/100 WBC (Bld) 3.3 % 0-5 [facility] Glucose [Mass/Vol] 88 mg/dL 74-106 [facility] Hemoglobin (Bld) [Mass/Vol] 10.7 g/dL 12.0-15.0 [facility] Monocytes/100 WBC (Bld) 12.3 % 0-10 [facility] Neutrophils (Bld) [#/Vol] 2.6 10*3/uL 2.0-7.7 [facility] Neutrophils/100 WBC (Bld) 49.9 % 47-70 [facility] Potassium [Moles/Vol] 4.2 mmol/L 3.5-5.1 [facility] Sodium [Moles/Vol] 138 mmol/L 136-145 [facility] WBC (Bld) [#/Vol] 5.1 10*3/uL 4.4-11.0 [facility] Determination of erythrocyte mean corpuscular volume (MCV)Ordered By: Jessica Mark on 06-22-2023 MCV (RBC) [Entitic vol] 90.4 fL 81-99 [facility] Erythrocyte distribution wid th ratioOrdered By: [facility] on 06-22-2023 Erythrocyte distribution width (RBC) [Ratio] 13.2 % 11.6-14.6 [facility] Erythrocyte distribution wid th standard deviationOrdered By: Marco Acentervillekimberli [place] on 06-22-2023 Erythrocyte distribution width (RBC) [Entitic vol] 43.4 fL 35.1-43.9 [facility] Hematocrit Auto (Bld) [Volum e fraction]Ordered By: Jessica Mark on 06-22-2023 Hematocrit (Bld) [Volume fraction] 33.9 % 37-47 [facility] Immature granulocytes/100 WB C Auto (Bld)Ordered By: [facility] [place] on 06-22-2023 Immature granulocytes/100 WBC (Bld) 0.400 % 0.0-0.9 [facility] Comment on above: IG% - Immature Granu locytes (promyelocytes, myelocytes and metamyelocytes) > 1% indicates that a LEFT SHIFT is Present. Laboratory - Chemistry and C hemistry - challengeOrdered By: Jessica Mark on 06-22-2023 CO2 [Moles/Vol] 26.0 mmol/L 21.0-32.0 [facility] Urea nitrogen/Creatinine [Mass ratio] 22.2 mg/mg 10-20 [facility] Laboratory - Hematology and Cell countsOrdered By: Jessica Mark on 06-22-2023 MCH (RBC) [Entitic mass] 28.5 pg 27.0-32.0 [facility] MCHC (RBC) [Mass/Vol] 31.6 g/dL 32-36 [facility] Nucleated RBC/100 WBC (Bld) [Ratio] 0 % 0-5 [facility] Platelets (Bld) [#/Vol] 327 10*3/uL 150-450 [facility] No Panel InformationOrdered By: Jessica Mark on 06-22-2023 Estimated GFR (MDRD) Amer 96 mL/min >60 [facility] Comment on above: GFR Calc Estimated GFR (MDRD) Non-Af Amer 79 mL/min >60 [facility] Comment on above: Non- GFR Calc Platelet mean volume Navi-Ec ker (Bld) [Entitic vol]Ordered By: Jessica Mark on 06-22-2023 Platelet mean volume (Bld) [Entitic vol] 9.9 fL 6.2-12.0 [facility] RBC Auto (Bld) [#/Vol]Ordere d By: Jessica Mark on 06-22-2023 RBC (Bld) [#/Vol] 3.75 10*6/uL 4.2-5.4 [facility] Serum or plasma calcium marlon urement (mass/volume)Ordered By: Jessica Mark on 06-22-2023 Calcium [Mass/Vol] 9.1 mg/dL 8.5-10.1 [facility] Serum or plasma creatinine m easurement (mass/volume)Ordered By: Jessica Mark on 06-22-2023 Creatinine [Mass/Vol] 0.77 mg/dL 0.55-1.02 [facility] Comment on above: The validity of the calculated GFR & GFRAA in patients over 70 years has not been determined. Clinical correlation is essential. Serum or plasma urea nitroge n measurement (mass/volume)Ordered By: Jessica Mark on 06-22-2023 Urea nitrogen [Mass/Vol] 17 mg/dL 7-18 [facility] Thin prep Papanicolaou smear with manual screeningOrdered By: Jessica Mark on 06-22-2023 Thin prep Papanicolaou smear with manual screening 4 5-15 [facility] Absolute lymphocyte countOrd ered By: Jessica Mark on 06-15-2023 Lymphocytes Auto (Unsp spec) [#/Vol] 1.48 10*3/uL 0.83-4.51 [facility] Basophil percentageOrdered B y: Jessica Mark on 06-15-2023 Basophils/100 WBC (Bld) 0.3 % 0-1 [facility] Bilirubin [Mass/Vol] 0.40 mg/dL 0.20-1.00 [facility] Comment on above: For patients on eltr ombopag therapy, use of Dimension [place] TBIL is not recommended. Chloride [Moles/Vol] 110 mmol/L 98-107 [facility] Cholesterol [Mass/Vol] 133 mg/dL <200 [facility] Comment on above: <200 mg/dL Desirable 200-240 mg/dL Borderline >240 mg/dL High Risk Eosinophils/100 WBC (Bld) 2.6 % 0-5 [facility] Glucose [Mass/Vol] 85 mg/dL 74-106 [facility] Neutrophils (Bld) [#/Vol] 3.6 10*3/uL 2.0-7.7 [facility] Neutrophils/100 WBC (Bld) 60.5 % 47-70 [facility] Potassium [Moles/Vol] 4.1 mmol/L 3.5-5.1 [facility] Protein [Mass/Vol] 6.5 g/dL 6.4-8.2 [facility] Sodium [Moles/Vol] 140 mmol/L 136-145 [facility] Triglyceride [Mass/Vol] 114 mg/dL <199 [facility] Comment on above: The drugs N-Acetylcy steine and Metamizole may falsely depress this assay.Serum Triglycerides Reference Interval Normal <150 mg/dL Borderline high 150 - 199 mg/dL High 200 - 499 mg/dL Very High > or = 500 mg/dL WBC (Bld) [#/Vol] 5.9 10*3/uL 4.4-11.0 [facility] Blood erythrocytes count (nu mber/volume)Ordered By: Jessica Mark on 06-15-2023 RBC (Bld) [#/Vol] 3.62 10*6/uL 4.2-5.4 [facility] Blood hemoglobin measurement (mass/volume)Ordered By: Jessica Mark on 06-15-2023 Hemoglobin (Bld) [Mass/Vol] 10.4 g/dL 12.0-15.0 [facility] Blood lymphocytes/100 leukoc ytesOrdered By: naeem Mark on 06-15-2023 Lymphocytes/100 WBC (Bld) 25.2 % 19-41 [facility] Blood monocytes/100 leukocyt esOrdered By: [facility] aMrk on 06-15-2023 Monocytes/100 WBC (Bld) 11.1 % 0-10 [facility] Blood platelet mean volumeOr dered By: naeem Mark on 06-15-2023 Platelet mean volume (Bld) [Entitic vol] 9.5 fL 6.2-12.0 [facility] Determination of erythrocyte mean corpuscular volume (MCV)Ordered By: naeem Mark on 06-15-2023 MCV (RBC) [Entitic vol] 88.1 fL 81-99 [facility] Hematocrit Auto (Bld) [Volum e fraction]Ordered By: Jessica Mark on 06-15-2023 Hematocrit (Bld) [Volume fraction] 31.9 % 37-47 [facility] Laboratory - Chemistry and C hemistry - challengeOrdered By: Jessica Mark on 06-15-2023 ALP [Catalytic activity/Vol] 97 U/L 45-117 [facility] ALT [Catalytic activity/Vol] 15 U/L 13-56 [facility] CO2 [Moles/Vol] 23.0 mmol/L 21.0-32.0 [facility] Globulin (S) [Mass/Vol] 3.9 g/dL 2.2-4.2 [facility] Urea nitrogen/Creatinine [Mass ratio] 21.6 mg/mg 10-20 [facility] - Hematology and Cell countsOrdered By: naeem Mark on 06-15-2023 Erythrocyte distribution width (RBC) [Entitic vol] 42.2 fL 35.1-43.9 [facility] Erythrocyte distribution width (RBC) [Ratio] 13.2 % 11.6-14.6 [facility] Immature granulocytes/100 WBC (Bld) 0.300 % 0.0-0.9 [facility] Comment on above: IG% - Immature Granu locytes (promyelocytes, myelocytes and metamyelocytes) > 1% indicates that a LEFT SHIFT is Present. MCH (RBC) [Entitic mass] 28.7 pg 27.0-32.0 [facility] Nucleated RBC/100 WBC (Bld) [Ratio] 0 % 0-5 [facility] MCHC Auto (RBC) [Mass/Vol]Or dered By: Jessica Mark on 06-15-2023 MCHC (RBC) [Mass/Vol] 32.6 g/dL 32-36 [facility] No Panel InformationOrdered By: Jessica Mark on 06-15-2023 Estimated GFR (MDRD) Amer 99 mL/min >60 [facility] Comment on above: GFR Calc Estimated GFR (MDRD) Non-Af Amer 82 mL/min >60 [facility] Comment on above: Non- GFR Calc Vitamin D 25-Hydroxy 50.6 ng/mL [facility] Comment on above: Vitamin D 25(OH) Sta tus Range Deficiency <20 ng/mL (50nmol/L) Insufficiency 20 - 30 ng/mL (50 - 75 nmol/L) Sufficiency 30 - 100 ng/mL (75 - 250 nmol/L) Toxicity >100 ng/mL (>250 nmol/L) Platelets bldOrdered By: Mj Mark on 06-15-2023 Platelets (Bld) [#/Vol] 372 10*3/uL 150-450 [facility] Serum or plasma albumin marlon urement (mass/volume)Ordered By: Jessica Mark on 06-15-2023 Albumin [Mass/Vol] 2.6 g/dL 3.2-5.0 [facility] Serum or plasma albumin/glob ulin mass ratioOrdered By: Jessica Mark on 06-15-2023 Albumin/Globulin [Mass ratio] 0.7 {ratio} 0.9-2.4 [facility] Serum or plasma calcium marlon urement (mass/volume)Ordered By: Jessica Mark on 06-15-2023 Calcium [Mass/Vol] 8.9 mg/dL 8.5-10.1 [facility] Serum or plasma cholesterol in HDL measurement (mass/volume)Ordered By: Jessica Mark on 06-15-2023 Cholesterol in HDL [Mass/Vol] 39 mg/dL >40 [facility] Comment on above: The drugs N-Acetylcy steine and Metamizole may falsely depress this assay. Reference Range HDL <40 mg/dL Low HDL Cholesterol HDL >or= 60 mg/dL High HDL Cholesterol Serum or plasma cholesterol in VLDL measurement (mass/volume)Ordered By: Jessica Mark on 06-15-2023 Cholesterol in VLDL [Mass/Vol] 23 mg/dL 5-40 [facility] Serum or plasma creatinine m easurement (mass/volume)Ordered By: Jessica Mark on 06-15-2023 Creatinine [Mass/Vol] 0.74 mg/dL 0.55-1.02 [facility] Comment on above: The validity of the calculated GFR & GFRAA in patients over 70 years has not been determined. Clinical correlation is essential. Serum or plasma low density lipoprotein (LDL) cholesterol measurement (mass/volume)Ordered By: Jessica Mark on 06-15-2023 Cholesterol in LDL [Mass/Vol] 71 mg/dL 0-130 [facility] Serum or plasma urea nitroge n measurement (mass/volume)Ordered By: Jessica Mark on 06-15-2023 Urea nitrogen [Mass/Vol] 16 mg/dL 7-18 [facility] Thin prep Papanicolaou smear with manual screeningOrdered By: Jessica Mark on 06-15-2023 Thin prep Papanicolaou smear with manual screening 13 U/L 15-37 [facility] Thin prep Papanicolaou smear with manual screening 7 5-15 [facility] Absolute lymphocyte countOrd ered By: Adán Khalil on 06-14-2023 Lymphocytes Auto (Unsp spec) [#/Vol] 1.19 10*3/uL 0.83-4.51 [facility] Basophil percentageOrdered B y: Adán Khalil on 06-14-2023 Basophils/100 WBC (Bld) 0.4 % 0-1 [facility] Chloride [Moles/Vol] 111 mmol/L 98-107 [facility] Eosinophils/100 WBC (Bld) 4.1 % 0-5 [facility] Glucose [Mass/Vol] 93 mg/dL 74-106 [facility] Neutrophils (Bld) [#/Vol] 3.4 10*3/uL 2.0-7.7 [facility] Neutrophils/100 WBC (Bld) 62.4 % 47-70 [facility] Potassium [Moles/Vol] 4.0 mmol/L 3.5-5.1 [facility] Sodium [Moles/Vol] 141 mmol/L 136-145 [facility] WBC (Bld) [#/Vol] 5.4 10*3/uL 4.4-11.0 [facility] Blood erythrocytes count (nu mber/volume)Ordered By: Adán Khalil on 06-14-2023 RBC (Bld) [#/Vol] 3.73 10*6/uL 4.2-5.4 [facility] Blood hemoglobin measurement (mass/volume)Ordered By: Adán Khalil on 06-14-2023 Hemoglobin (Bld) [Mass/Vol] 10.7 g/dL 12.0-15.0 [facility] Blood lymphocytes/100 leukoc ytesOrdered By: Adán Khalil on 06-14-2023 Lymphocytes/100 WBC (Bld) 22.0 % 19-41 [facility] Blood monocytes/100 leukocyt esOrdered By: Adán Khalil on 06-14-2023 Monocytes/100 WBC (Bld) 10.7 % 0-10 [facility] Blood platelet mean volumeOr dered By: Adán Khalil on 06-14-2023 Platelet mean volume (Bld) [Entitic vol] 9.3 fL 6.2-12.0 [facility] COVID-19 virus antigen assay Ordered By: Adán Khalil on 06-14-2023 SARS-CoV-2 (COVID-19) Ag IA.rapid Ql (Resp) [facility] Determination of erythrocyte mean corpuscular volume (MCV)Ordered By: Adán Khalil on 06-14-2023 MCV (RBC) [Entitic vol] 88.2 fL 81-99 [facility] Hematocrit Auto (Bld) [Volum e fraction]Ordered By: Adán Khalil on 06-14-2023 Hematocrit (Bld) [Volume fraction] 32.9 % 37-47 [facility] - Chemistry and C hemistry - challengeOrdered By: Adán Khalil on 06-14-2023 CO2 [Moles/Vol] 25.0 mmol/L 21.0-32.0 [facility] Urea nitrogen/Creatinine [Mass ratio] 23.8 mg/mg 10-20 [facility] - Hematology and Cell countsOrdered By: Adán Khalil on 06-14-2023 Erythrocyte distribution width (RBC) [Entitic vol] 42.3 fL 35.1-43.9 [facility] Erythrocyte distribution width (RBC) [Ratio] 13.1 % 11.6-14.6 [facility] Immature granulocytes/100 WBC (Bld) 0.400 % 0.0-0.9 [facility] Comment on above: IG% - Immature Granu locytes (promyelocytes, myelocytes and metamyelocytes) > 1% indicates that a LEFT SHIFT is Present. MCH (RBC) [Entitic mass] 28.7 pg 27.0-32.0 [facility] Nucleated RBC/100 WBC (Bld) [Ratio] 0 % 0-5 [facility] MCHC Auto (RBC) [Mass/Vol]Or dered By: Adán Khalil on 06-14-2023 MCHC (RBC) [Mass/Vol] 32.5 g/dL 32-36 [facility] No Panel InformationOrdered By: Adán Khalil on 06-14-2023 Estimated Creatinine Clearance Calc 74.00 ml/min [facility] Estimated GFR (MDRD) Amer 112 mL/min >60 [facility] Comment on above: GFR Calc Estimated GFR (MDRD) Non-Af Amer 92 mL/min >60 [facility] Comment on above: Non- GFR Calc Platelets bldOrdered By: Sneha Khalil on 06-14-2023 Platelets (Bld) [#/Vol] 357 10*3/uL 150-450 [facility] Serum or plasma calcium marlon urement (mass/volume)Ordered By: Adán Khalil on 06-14-2023 Calcium [Mass/Vol] 9.0 mg/dL 8.5-10.1 [facility] Serum or plasma creatinine m easurement (mass/volume)Ordered By: Adán Khalil on 06-14-2023 Creatinine [Mass/Vol] 0.67 mg/dL 0.55-1.02 [facility] Comment on above: The validity of the calculated GFR & GFRAA in patients over 70 years has not been determined. Clinical correlation is essential. Serum or plasma urea nitroge n measurement (mass/volume)Ordered By: Adán Khalil on 06-14-2023 Urea nitrogen [Mass/Vol] 16 mg/dL 7-18 [facility] Thin prep Papanicolaou smear with manual screeningOrdered By: Adán Khalil on 06-14-2023 Thin prep Papanicolaou smear with manual screening 5 5-15 [facility] Basophil percentageOrdered B y: Jeri Burns on 06-13-2023 Bilirubin [Mass/Vol] 0.40 mg/dL 0.20-1.00 [facility] Comment on above: For patients on eltr ombopag therapy, use of Dimension [place] TBIL is not recommended. Protein [Mass/Vol] 6.2 g/dL 6.4-8.2 [facility] Laboratory - Chemistry and C hemistry - challengeOrdered By: Jeri Burns on 06-13-2023 ALP [Catalytic activity/Vol] 96 U/L 45-117 [facility] ALT [Catalytic activity/Vol] 15 U/L 13-56 [facility] Globulin (S) [Mass/Vol] 3.5 g/dL 2.2-4.2 [facility] Serum or plasma albumin marlon urement (mass/volume)Ordered By: Jeri Burns on 06-13-2023 Albumin [Mass/Vol] 2.7 g/dL 3.2-5.0 [facility] Serum or plasma albumin/glob ulin mass ratioOrdered By: Jeri Burns on 06-13-2023 Albumin/Globulin [Mass ratio] 0.8 {ratio} 0.9-2.4 [facility] Stool enteric pathogen panel by probe and target amplification methodOrdered By: Jabari Baig on 06-13-2023 Gastrointestinal pathogens panel VIKASH+probe (Stl) [facility] Thin prep Papanicolaou smear with manual screeningOrdered By: Jeri Burns on 06-13-2023 Thin prep Papanicolaou smear with manual screening 14 U/L 15-37 [facility] Absolute lymphocyte countOrd ered By: Jabari Baig on 06-12-2023 Lymphocytes Auto (Unsp spec) [#/Vol] 0.83 10*3/uL 0.83-4.51 [facility] Basophil percentageOrdered B y: Jabari Baig on 06-12-2023 Basophil percentage 10-25 SEEN /hpf 0-5 [facility] Basophils/100 WBC (Bld) 0.3 % 0-1 [facility] Chloride [Moles/Vol] 108 mmol/L 98-107 [facility] Eosinophils/100 WBC (Bld) 0.4 % 0-5 [facility] Glucose [Mass/Vol] 117 mg/dL 74-106 [facility] Comment on above: Fasting Glucose resu lt from 100 to 125 mg/dL suggests IMPAIRED HOMEOSTASIS per A.D.A. criteria. Neutrophils (Bld) [#/Vol] 5.3 10*3/uL 2.0-7.7 [facility] Neutrophils/100 WBC (Bld) 78.9 % 47-70 [facility] Potassium [Moles/Vol] 3.7 mmol/L 3.5-5.1 [facility] Sodium [Moles/Vol] 138 mmol/L 136-145 [facility] WBC (Bld) [#/Vol] 6.8 10*3/uL 4.4-11.0 [facility] Basophil percentageOrdered B y: Jeri White on 06-12-2023 Basophil percentage 3.8 mg/dL 2.5-4.9 [facility] Bilirubin Test strip Ql (U)O rdered By: Jabari Baig on 06-12-2023 Bilirubin Ql (U) Negative Negative [facility] Blood erythrocytes count (nu mber/volume)Ordered By: Jabari Baig on 06-12-2023 RBC (Bld) [#/Vol] 4.19 10*6/uL 4.2-5.4 [facility] Blood hemoglobin measurement (mass/volume)Ordered By: Jabari Baig on 06-12-2023 Hemoglobin (Bld) [Mass/Vol] 12.0 g/dL 12.0-15.0 [facility] Blood lymphocytes/100 leukoc ytesOrdered By: Jabari Baig on 06-12-2023 Lymphocytes/100 WBC (Bld) 12.3 % 19-41 [facility] Blood monocytes/100 leukocyt esOrdered By: Jabari Baig on 06-12-2023 Monocytes/100 WBC (Bld) 7.7 % 0-10 [facility] Blood platelet mean volumeOr dered By: Jabari Baig on 06-12-2023 Platelet mean volume (Bld) [Entitic vol] 9.0 fL 6.2-12.0 [facility] Culture, urineOrdered By: Yuniel Baig on 06-12-2023 Bacteria identified Cx Nom (U) Mixed Gram Pos & Gram Neg Org [facility] Determination of erythrocyte mean corpuscular volume (MCV)Ordered By: Jabari Baig on 06-12-2023 MCV (RBC) [Entitic vol] 89.0 fL 81-99 [facility] Hematocrit Auto (Bld) [Volum e fraction]Ordered By: Jabari Baig on 06-12-2023 Hematocrit (Bld) [Volume fraction] 37.3 % 37-47 [facility] Hyaline casts LM.LPF (Urine sed) [#/Area]Ordered By: Jabari Baig on 06-12-2023 Hyaline casts (Urine sed) [#/Area] 0 /[LPF] 0-5 [facility] Ketones Test strip Ql (U)Ord ered By: Jabari Baig on 06-12-2023 Ketones Ql (U) 5 mg/dl Negative [facility] - Chemistry and C hemistry - challengeOrdered By: Jabari Baig on 06-12-2023 CO2 [Moles/Vol] 25.0 mmol/L 21.0-32.0 [facility] Urea nitrogen/Creatinine [Mass ratio] 23.5 mg/mg 10-20 [facility] - Chemistry and C hemistry - challengeOrdered By: Jeri Burns on 06-12-2023 Magnesium [Mass/Vol] 2.3 mg/dL 1.6-2.6 [facility] - Hematology and Cell countsOrdered By: Jabari Baig on 06-12-2023 Erythrocyte distribution width (RBC) [Entitic vol] 41.6 fL 35.1-43.9 [facility] Erythrocyte distribution width (RBC) [Ratio] 12.9 % 11.6-14.6 [facility] Immature granulocytes/100 WBC (Bld) 0.400 % 0.0-0.9 [facility] Comment on above: IG% - Immature Granu locytes (promyelocytes, myelocytes and metamyelocytes) > 1% indicates that a LEFT SHIFT is Present. MCH (RBC) [Entitic mass] 28.6 pg 27.0-32.0 [facility] Nucleated RBC/100 WBC (Bld) [Ratio] 0 % 0-5 [facility] MCHC Auto (RBC) [Mass/Vol]Or dered By: Jabari Baig on 06-12-2023 MCHC (RBC) [Mass/Vol] 32.2 g/dL 32-36 [facility] Mucus LM Ql (Urine sed)Order ed By: Jabari Baig on 06-12-2023 Mucus Ql (Urine sed) 0 SEEN /hpf [facility] Nitrite Test strip Ql (U)Ord ered By: Jabari Baig on 06-12-2023 Nitrite Ql (U) Negative Negative [facility] No Panel InformationOrdered By: Jabari Baig on 06-12-2023 Estimated GFR (MDRD) Amer 69 mL/min >60 [facility] Comment on above: GFR Calc Estimated GFR (MDRD) Non-Af Amer 57 mL/min >60 [facility] Comment on above: Non- GFR Calc Platelets bldOrdered By: Amanda Baig on 06-12-2023 Platelets (Bld) [#/Vol] 404 10*3/uL 150-450 [facility] Protein Test strip Ql (U)Ord ered By: Jabari Baig on 06-12-2023 Protein Ql (U) 100 mg/dl Negative [facility] Serum or plasma calcium marlon urement (mass/volume)Ordered By: Jabari Baig on 06-12-2023 Calcium [Mass/Vol] 9.6 mg/dL 8.5-10.1 [facility] Serum or plasma creatinine m easurement (mass/volume)Ordered By: Jabari Baig on 06-12-2023 Creatinine [Mass/Vol] 1.02 mg/dL 0.55-1.02 [facility] Comment on above: The validity of the calculated GFR & GFRAA in patients over 70 years has not been determined. Clinical correlation is essential. Serum or plasma urea nitroge n measurement (mass/volume)Ordered By: Jabari Baig on 06-12-2023 Urea nitrogen [Mass/Vol] 24 mg/dL 7-18 [facility] Serum procalcitonin measurem entOrdered By: Jeri Burns on 06-12-2023 Procalcitonin [Mass/Vol] 0.04 ng/mL 0.00-0.09 [facility] Comment on above: A procalcitonin (PCT [...] Ql (Urine sed) 10-25 SEEN /hpf 5-10 [facility] Thin prep Papanicolaou smear with manual screeningOrdered By: Jabari Baig on 06-12-2023 Thin prep Papanicolaou smear with manual screening 5 5-15 [facility] Urine blood detectionOrdered By: Jabari Baig on 06-12-2023 RBC Ql (U) 10 /ul Negative [facility] RBC Ql (U) 0-5 SEEN /hpf 0-5 [facility] Urine clarityOrdered By: Amanda Baig on 06-12-2023 Clarity (U) Sl. Cloudy Clear [facility] Urine color determinationOrd ered By: Jabari Baig on 06-12-2023 Color (U) Yellow Yellow [facility] Urine glucose detectionOrder ed By: Jabari Baig on 06-12-2023 Glucose Ql (U) Normal mg/dl Normal [facility] Urine leukocyte esterase det ection by dipstickOrdered By: Jabari Baig on 06-12-2023 Leukocyte esterase Test strip Ql (U) 100 /ul Negative [facility] Urine pHOrdered By: Jabari melissa on 06-12-2023 pH (U) 5.0 [pH] 5.0 - 8.0 [facility] Urine sediment bacteria coun t by microscopy (number/high power field)Ordered By: Jabari Baig on 06-12-2023 Bacteria LM.HPF (Urine sed) [#/Area] 2 /[HPF] None Seen [facility] Urine specific gravity measu rementOrdered By: Jabari Baig on 06-12-2023 Specific gravity (U) [Rel density] 1.020 1.002-1.030 [facility] Urobilinogen Auto test strip Ql (U)Ordered By: Jabari Baig on 06-12-2023 Urobilinogen Ql (U) 1 mg/dl Normal [facility] COVID-19 virus antigen assay Ordered By: Ava Castle on 06-06-2023 SARS-CoV-2 (COVID-19) Ag IA.rapid Ql (Resp) [facility] Absolute lymphocyte countOrd ered By: Ava Castle on 06-04-2023 Lymphocytes Auto (Unsp spec) [#/Vol] 1.52 10*3/uL 0.83-4.51 [facility] Basophil percentageOrdered B y: Ava Castle on 06-04-2023 Basophils/100 WBC (Bld) 0.4 % 0-1 [facility] Chloride [Moles/Vol] 107 mmol/L 98-107 [facility] Eosinophils/100 WBC (Bld) 6.8 % 0-5 [facility] Glucose [Mass/Vol] 91 mg/dL 74-106 [facility] Neutrophils (Bld) [#/Vol] 2.5 10*3/uL 2.0-7.7 [facility] Neutrophils/100 WBC (Bld) 49.4 % 47-70 [facility] Potassium [Moles/Vol] 4.7 mmol/L 3.5-5.1 [facility] Sodium [Moles/Vol] 139 mmol/L 136-145 [facility] WBC (Bld) [#/Vol] 5.0 10*3/uL 4.4-11.0 [facility] Blood erythrocytes count (nu mber/volume)Ordered By: Ava Castle on 06-04-2023 RBC (Bld) [#/Vol] 3.33 10*6/uL 4.2-5.4 [facility] Blood hemoglobin measurement (mass/volume)Ordered By: Ava Castle on 06-04-2023 Hemoglobin (Bld) [Mass/Vol] 9.7 g/dL 12.0-15.0 [facility] Blood lymphocytes/100 leukoc ytesOrdered By: Ava Castle on 06-04-2023 Lymphocytes/100 WBC (Bld) 30.3 % 19-41 [facility] Blood monocytes/100 leukocyt esOrdered By: Ava Castle on 06-04-2023 Monocytes/100 WBC (Bld) 12.5 % 0-10 [facility] Blood platelet mean volumeOr dered By: Ava Castle on 06-04-2023 Platelet mean volume (Bld) [Entitic vol] 9.2 fL 6.2-12.0 [facility] Determination of erythrocyte mean corpuscular volume (MCV)Ordered By: Ava Castle on 06-04-2023 MCV (RBC) [Entitic vol] 92.8 fL 81-99 [facility] Hematocrit Auto (Bld) [Volum e fraction]Ordered By: Ava Castle on 06-04-2023 Hematocrit (Bld) [Volume fraction] 30.9 % 37-47 [facility] - Chemistry and C hemistry - challengeOrdered By: Ava Castle on 06-04-2023 CO2 [Moles/Vol] 29.0 mmol/L 21.0-32.0 [facility] Urea nitrogen/Creatinine [Mass ratio] 25.1 mg/mg 10-20 [facility] - Hematology and Cell countsOrdered By: Ava Castle on 06-04-2023 Erythrocyte distribution width (RBC) [Entitic vol] 42.5 fL 35.1-43.9 [facility] Erythrocyte distribution width (RBC) [Ratio] 12.5 % 11.6-14.6 [facility] Immature granulocytes/100 WBC (Bld) 0.600 % 0.0-0.9 [facility] Comment on above: IG% - Immature Granu locytes (promyelocytes, myelocytes and metamyelocytes) > 1% indicates that a LEFT SHIFT is Present. MCH (RBC) [Entitic mass] 29.1 pg 27.0-32.0 [facility] Nucleated RBC/100 WBC (Bld) [Ratio] 0 % 0-5 [facility] MCHC Auto (RBC) [Mass/Vol]Or dered By: Ava Castle on 06-04-2023 MCHC (RBC) [Mass/Vol] 31.4 g/dL 32-36 [facility] No Panel InformationOrdered By: Ava Castle on 06-04-2023 Estimated Creatinine Clearance Calc 54.71 ml/min [facility] Estimated GFR (MDRD) Amer 97 mL/min >60 [facility] Comment on above: GFR Calc Estimated GFR (MDRD) Non-Af Amer 80 mL/min >60 [facility] Comment on above: Non- GFR Calc Platelets bldOrdered By: Yudy Castle on 06-04-2023 Platelets (Bld) [#/Vol] 295 10*3/uL 150-450 [facility] Serum or plasma calcium marlon urement (mass/volume)Ordered By: Ava Castle on 06-04-2023 Calcium [Mass/Vol] 8.4 mg/dL 8.5-10.1 [facility] Serum or plasma creatinine m easurement (mass/volume)Ordered By: Ava Castle on 06-04-2023 Creatinine [Mass/Vol] 0.76 mg/dL 0.55-1.02 [facility] Comment on above: The validity of the calculated GFR & GFRAA in patients over 70 years has not been determined. Clinical correlation is essential. Serum or plasma urea nitroge n measurement (mass/volume)Ordered By: Ava Castle on 06-04-2023 Urea nitrogen [Mass/Vol] 19 mg/dL 7-18 [facility] Thin prep Papanicolaou smear with manual screeningOrdered By: Ava Montanodelbert on 06-04-2023 Thin prep Papanicolaou smear with manual screening 3 5-15 [facility] COVID-19 virus antigen assay Ordered By: Ava Montanodelbert on 05-25-2023 SARS-CoV-2 (COVID-19) Ag IA.rapid Ql (Resp) [facility] Blood hemoglobin measurement (mass/volume)Ordered By: Evonne Bishop on 05-22-2023 Hemoglobin (Bld) [Mass/Vol] 11.1 g/dL 12.0-15.0 [facility] Hematocrit Auto (Bld) [Volum e fraction]Ordered By: Evonne Bishop on 05-22-2023 Hematocrit (Bld) [Volume fraction] 34.9 % 37-47 [facility] Absolute lymphocyte countOrd ered By: Mavis Vásquez on 05-16-2023 Lymphocytes Auto (Unsp spec) [#/Vol] 1.49 10*3/uL 0.83-4.51 [facility] Basophil percentageOrdered B y: Mavis Vásquez on 05-16-2023 Basophil percentage 3.9 mg/dL 2.5-4.9 [facility] Basophils/100 WBC (Bld) 0.5 % 0-1 [facility] Bilirubin [Mass/Vol] 0.30 mg/dL 0.20-1.00 [facility] Comment on above: For patients on eltr ombopag therapy, use of Dimension [place] TBIL is not recommended. Chloride [Moles/Vol] 106 mmol/L 98-107 [facility] Eosinophils/100 WBC (Bld) 7.0 % 0-5 [facility] Glucose [Mass/Vol] 96 mg/dL 74-106 [facility] Neutrophils (Bld) [#/Vol] 4.4 10*3/uL 2.0-7.7 [facility] Neutrophils/100 WBC (Bld) 59.6 % 47-70 [facility] Potassium [Moles/Vol] 4.1 mmol/L 3.5-5.1 [facility] Protein [Mass/Vol] 5.7 g/dL 6.4-8.2 [facility] Sodium [Moles/Vol] 139 mmol/L 136-145 [facility] WBC (Bld) [#/Vol] 7.3 10*3/uL 4.4-11.0 [facility] Blood erythrocytes count (nu mber/volume)Ordered By: Mavis Vásquez on 05-16-2023 RBC (Bld) [#/Vol] 3.13 10*6/uL 4.2-5.4 [facility] Blood lymphocytes/100 leukoc ytesOrdered By: Mavis Vásquez on 05-16-2023 Lymphocytes/100 WBC (Bld) 20.4 % 19-41 [facility] Blood monocytes/100 leukocyt esOrdered By: Mavis Vásquez on 05-16-2023 Monocytes/100 WBC (Bld) 12.1 % 0-10 [facility] Blood platelet mean volumeOr dered By: Mavis Vásquez on 05-16-2023 Platelet mean volume (Bld) [Entitic vol] 9.7 fL 6.2-12.0 [facility] Determination of erythrocyte mean corpuscular volume (MCV)Ordered By: Mavis Vásquez on 05-16-2023 MCV (RBC) [Entitic vol] 93.3 fL 81-99 [facility] - Chemistry and C hemistry - challengeOrdered By: Mavis Vásquez on 05-16-2023 ALP [Catalytic activity/Vol] 60 U/L 45-117 [facility] ALT [Catalytic activity/Vol] 48 U/L 13-56 [facility] CO2 [Moles/Vol] 29.0 mmol/L 21.0-32.0 [facility] Globulin (S) [Mass/Vol] 3.5 g/dL 2.2-4.2 [facility] Magnesium [Mass/Vol] 2.3 mg/dL 1.6-2.6 [facility] Urea nitrogen/Creatinine [Mass ratio] 28.4 mg/mg 10-20 [facility] - Hematology and Cell countsOrdered By: Mavis Vásquez on 05-16-2023 Erythrocyte distribution width (RBC) [Entitic vol] 42.7 fL 35.1-43.9 [facility] Erythrocyte distribution width (RBC) [Ratio] 12.6 % 11.6-14.6 [facility] Immature granulocytes/100 WBC (Bld) 0.400 % 0.0-0.9 [facility] Comment on above: IG% - Immature Granu locytes (promyelocytes, myelocytes and metamyelocytes) > 1% indicates that a LEFT SHIFT is Present. MCH (RBC) [Entitic mass] 30.0 pg 27.0-32.0 [facility] Nucleated RBC/100 WBC (Bld) [Ratio] 0 % 0-5 [facility] MCHC Auto (RBC) [Mass/Vol]Or dered By: Mavis Vásquez on 05-16-2023 MCHC (RBC) [Mass/Vol] 32.2 g/dL 32-36 [facility] No Panel InformationOrdered By: Mavis Vásquez on 05-16-2023 Estimated Creatinine Clearance Calc 54.71 ml/min [facility] Estimated GFR (MDRD) Amer 112 mL/min >60 [facility] Comment on above: GFR Calc Estimated GFR (MDRD) Non-Af Amer 93 mL/min >60 [facility] Comment on above: Non- GFR Calc Platelets bldOrdered By: Nohemy Vásquez on 05-16-2023 Platelets (Bld) [#/Vol] 296 10*3/uL 150-450 [facility] Serum or plasma albumin marlon urement (mass/volume)Ordered By: Mavis Vásquez on 05-16-2023 Albumin [Mass/Vol] 2.2 g/dL 3.2-5.0 [facility] Serum or plasma albumin/glob ulin mass ratioOrdered By: Mavis Vásquez on 05-16-2023 Albumin/Globulin [Mass ratio] 0.6 {ratio} 0.9-2.4 [facility] Serum or plasma calcium marlon urement (mass/volume)Ordered By: Mavis Vásquez on 05-16-2023 Calcium [Mass/Vol] 8.3 mg/dL 8.5-10.1 [facility] Serum or plasma creatinine m easurement (mass/volume)Ordered By: Mavis Vásquez on 05-16-2023 Creatinine [Mass/Vol] 0.67 mg/dL 0.55-1.02 [facility] Comment on above: The validity of the calculated GFR & GFRAA in patients over 70 years has not been determined. Clinical correlation is essential. Serum or plasma urea nitroge n measurement (mass/volume)Ordered By: Mavis Vásquez on 05-16-2023 Urea nitrogen [Mass/Vol] 19 mg/dL 12-20 [facility] Thin prep Papanicolaou smear with manual screeningOrdered By: Mavis Vásquez on 05-16-2023 Thin prep Papanicolaou smear with manual screening 53 U/L [facility] Thin prep Papanicolaou smear with manual screening 4 10-17 [facility] .GFRon 03-21-2023 GFR 102 ml/min/1.73sqm Normal [facility] ([place]) Comment on above: Result Comment: GFR Population [...] Performed By: #### C MP, GFR #### [place] [id number] GFR Non- 84 ml/min/1.73sqm Normal [facility] ([place] Comment on above: Result Comment: GFR Population [...] Performed By: #### C MP, GFR #### [address] [address] CMPon 03-21-2023 Albumin Level 4.0 G/dL Normal 3.4-4.8 [facility] ([place]) Comment on above: Performed By: #### C MP, GFR #### [address] [address] Albumin/Globulin [Mass ratio] 1.1 {ratio} Normal 1.1-2.5 [facility] ([place] Comment on above: Performed By: #### C MP, GFR #### [address] [address] ALP [Catalytic activity/Vol] 138 U/L High 40-135 [facility] ([place] Comment on above: Performed By: #### C MP, GFR #### [address] [address] ALT [Catalytic activity/Vol] 21 U/L Normal 14-59 [facility] ([place] Comment on above: Performed By: #### C MP, GFR #### [address] [address] AST [Catalytic activity/Vol] 19 U/L Normal 10-40 [facility] ([place] Comment on above: Performed By: #### C MP, GFR #### [address] [address] Bili Total 0.5 mg/dL Normal 0.2-1.0 [facility] ([place] Comment on above: Result Comment: Use of this assay is not recommended for patients undergoing treatment with eltrombopag due to the potential for falsely elevated results. Performed By: #### C MP, GFR #### [address] [address] BUN/Creatinine Ratio 29 ratio High 7-27 [facility] ([place]) Comment on above: Performed By: #### C MP, GFR #### [address] [address] Calcium [Mass/Vol] 9.2 mg/dL Normal 8.4-10.2 [facility] ([place]) Comment on above: Performed By: #### C MP, GFR #### [address] [address] Chloride [Moles/Vol] 102 mmol/L Normal 98-107 [facility] ([place] Comment on above: Performed By: #### C MP, GFR #### [address] [address] CO2 [Moles/Vol] 27 mmol/L Normal 23-31 [facility] ([place] Comment on above: Performed By: #### C MP, GFR #### [address] [address] Creatinine [Mass/Vol] 0.69 mg/dL Normal 0.55-1.02 [facility] ([place] Comment on above: Performed By: #### C MP, GFR #### [address] [address] Electrolyte Balance 13.0 mEq/L Normal 4.0-15.0 [facility] ([place]) Comment on above: Performed By: #### C MP, GFR #### [address] [address] Globulin 3.8 G/dL Normal [facility] ([place] Comment on above: Performed By: #### C MP, GFR #### [address] [address] Glucose [Mass/Vol] 94 mg/dL Normal 80-115 [facility] ([place] Comment on above: Performed By: #### C MP, GFR #### [address] [address] Potassium [Moles/Vol] 4.8 mmol/L Normal 3.5-5.1 [facility] ([place] Comment on above: Performed By: #### C MP, GFR #### [address] [address] Sodium [Moles/Vol] 142 mmol/L Normal 136-145 [facility] ([place] Comment on above: Performed By: #### C MP, GFR #### [address] [address] Total Protein 7.8 G/dL Normal 6.4-8.2 [facility] ([place] Comment on above: Performed By: #### C MP, GFR #### [address] [address] Urea nitrogen [Mass/Vol] 20 mg/dL High 7-18 [facility] ([place] Comment on above: Performed By: #### C MP, GFR #### [address] [address] LABORATORYOrdered By: SYSTEM SYSTEM on 03-20-2023 Albumin [...] SS .GFRon 03-13-2023 GFR 79 ml/min/1.73sqm Normal [facility] ([place] Comment on above: Result Comment: GFR Population [...] Performed By: #### G , CMP #### [address] [address] GFR Non- 65 ml/min/1.73sqm Normal [facility] ([place] Comment on above: Result Comment: GFR Population [...] Performed By: #### G FR, CMP #### [address] [address] CMPon 03-13-2023 Albumin Level 4.0 G/dL Normal 3.4-4.8 [facility] ([place] Comment on above: Performed By: #### Smith RODRIGUEZ, CMP #### [address] [address] Albumin/Globulin [Mass ratio] 1.1 {ratio} Normal 1.1-2.5 [facility] ([place] Comment on above: Performed By: #### Smith RODRIGUEZ, CMP #### [address] [address] ALP [Catalytic activity/Vol] 118 U/L Normal 40-135 [facility] ([place] Comment on above: Performed By: #### Smith RODRIGUEZ, CMP #### [address] [address] ALT [Catalytic activity/Vol] 25 U/L Normal 14-59 [facility] ([place] Comment on above: Performed By: #### Smith RODRIGUEZ, CMP #### [address] [address] AST [Catalytic activity/Vol] 22 U/L Normal 10-40 [facility] ([place] Comment on above: Performed By: #### Smith RODRIGUEZ, CMP #### [address] [address] Bili Total 0.5 mg/dL Normal 0.2-1.0 [facility] ([place] Comment on above: Result Comment: Use of this assay is not recommended for patients undergoing treatment with eltrombopag due to the potential for falsely elevated results. Performed By: #### Smith RODRIGUEZ, CMP #### [address] [address] BUN/Creatinine Ratio 26 ratio Normal 7-27 [facility] ([place] Comment on above: Performed By: #### Smith RODRIGUEZ, CMP #### [address] [address] Calcium [Mass/Vol] 9.6 mg/dL Normal 8.4-10.2 [facility] ([place] Comment on above: Performed By: #### Smith RODRIGUEZ, CMP #### [address] [address] Chloride [Moles/Vol] 101 mmol/L Normal 98-107 [facility] ([place] Comment on above: Performed By: #### G FR, CMP #### [address] [address] CO2 [Moles/Vol] 26 mmol/L Normal 23-31 [facility] ([place] Comment on above: Performed By: #### G , CMP #### [address] [address] Creatinine [Mass/Vol] 0.86 mg/dL Normal 0.55-1.02 [facility] ([place] Comment on above: Performed By: #### Smith RODRIGUEZ, CMP #### [address] [address] Electrolyte Balance 9.0 mEq/L Normal 4.0-15.0 [facility] ([place] Comment on above: Performed By: #### Smith RODRIGUEZ, CMP #### [address] [address] Globulin 3.7 G/dL Normal [facility] ([place] Comment on above: Performed By: #### Smith RODRIGUEZ, CMP #### [address] [address] Glucose [Mass/Vol] 90 mg/dL Normal 80-115 [facility] ([place] Comment on above: Performed By: #### G , CMP #### [address] [address] Potassium [Moles/Vol] 5.7 mmol/L High 3.5-5.1 [facility] ([place] Comment on above: Performed By: #### G FR, CMP #### [address] [address] Sodium [Moles/Vol] 136 mmol/L Normal 136-145 [facility] ([place] Comment on above: Performed By: #### G , CMP #### [address] [address] Total Protein 7.7 G/dL Normal 6.4-8.2 [facility] ([place] Comment on above: Performed By: #### G , CMP #### [address] [address] Urea nitrogen [Mass/Vol] 22 mg/dL High 7-18 [facility] ([place] Comment on above: Performed By: #### G , CMP #### [address] [address] .GFRon 11-15-2022 GFR 86 ml/min/1.73sqm Normal [facility] ([place] Comment on above: Result Comment: GFR Population [...] Performed By: #### G , CMP #### [address] [address] GFR Non- 71 ml/min/1.73sqm Normal [facility] ([place] Comment on above: Result Comment: GFR Population [...] Performed By: #### G FR, CMP #### [address] [address] CMPon 11-15-2022 Albumin Level 3.8 G/dL Normal 3.4-4.8 [facility] ([place] Comment on above: Performed By: #### V IDH, LIPID, CMP, GFR #### [address] [address] Albumin/Globulin [Mass ratio] 1.3 {ratio} Normal 1.1-2.5 [facility] ([place] Comment on above: Performed By: #### V IDH, LIPID, CMP, GFR #### [address] [address] ALP [Catalytic activity/Vol] 101 U/L Normal 40-135 [facility] ([place] Comment on above: Performed By: #### V IDH, LIPID, CMP, GFR #### [address] [address] ALT [Catalytic activity/Vol] 25 U/L Normal 14-59 [facility] ([place] Comment on above: Performed By: #### V IDH, LIPID, CMP, GFR #### [address] [address] AST [Catalytic activity/Vol] 23 U/L Normal 10-40 [facility] ([place] Comment on above: Performed By: #### V IDH, LIPID, CMP, GFR #### [address] [address] Bili Total 0.5 mg/dL Normal 0.2-1.0 [facility] ([place] Comment on above: Result Comment: Use of this assay is not recommended for patients undergoing treatment with eltrombopag due to the potential for falsely elevated results. Performed By: #### V IDH, LIPID, CMP, GFR #### [address] [address] BUN/Creatinine Ratio 25 ratio Normal 7-27 [facility] ([place] Comment on above: Performed By: #### V IDH, LIPID, CMP, GFR #### [address] [address] Calcium [Mass/Vol] 8.7 mg/dL Normal 8.4-10.2 [facility] ([place] Comment on above: Performed By: #### V IDH, LIPID, CMP, GFR #### [address] [address] Chloride [Moles/Vol] 106 mmol/L Normal 98-107 [facility] ([place] Comment on above: Performed By: #### V IDH, LIPID, CMP, GFR #### [address] [address] CO2 [Moles/Vol] 29 mmol/L Normal 23-31 [facility] ([place] Comment on above: Performed By: #### V IDH, LIPID, CMP, GFR #### [address] [address] Creatinine [Mass/Vol] 0.80 mg/dL Normal 0.55-1.02 [facility] ([place] Comment on above: Performed By: #### V IDH, LIPID, CMP, GFR #### [address] [address] Electrolyte Balance 7.0 mEq/L Normal 4.0-15.0 [facility] ([place] Comment on above: Performed By: #### V IDH, LIPID, CMP, GFR #### [address] [address] Globulin 2.9 G/dL Normal [facility] ([place] Comment on above: Performed By: #### V IDH, LIPID, CMP, GFR #### [address] [address] Glucose [Mass/Vol] 80 mg/dL Normal 80-115 [facility] ([place] Comment on above: Performed By: #### V IDH, LIPID, CMP, GFR #### [address] [address] Potassium [Moles/Vol] 5.0 mmol/L Normal 3.5-5.1 [facility] ([place] Comment on above: Performed By: #### V IDH, LIPID, CMP, GFR #### [address] [address] Sodium [Moles/Vol] 142 mmol/L Normal 136-145 [facility] ([place] Comment on above: Performed By: #### V IDH, LIPID, CMP, GFR #### [address] [address] Total Protein 6.7 G/dL Normal 6.4-8.2 [facility] ([place] Comment on above: Performed By: #### V IDH, LIPID, CMP, GFR #### [address] [address] Urea nitrogen [Mass/Vol] 20 mg/dL High 7-18 [facility] ([place] Comment on above: Performed By: #### V IDH, LIPID, CMP, GFR #### [address] [address] LIPIDon 11-15-2022 Cholesterol [Mass/Vol] 158 mg/dL Normal 0-200 [facility] ([place]) Comment on above: Result Comment: Chol esterol Reference Interval: Less than 200 Desirable 200-239 Borderline high risk 240 and above High risk Performed By: #### G FR, CMP #### [address] [address] Cholesterol in HDL [Mass/Vol] 53 mg/dL Normal 40-60 [facility] ([place] Comment on above: Performed By: #### G FR, CMP #### [address] [address] Cholesterol in LDL [Mass/Vol] 83 mg/dL Normal 0-130 [facility] ([place] Comment on above: Performed By: #### G FR, CMP #### [address] [address] Triglyceride [Mass/Vol] 111 mg/dL Normal 0-150 [facility] ([place]) Comment on above: Result Comment: Trig lyceride Reference Interval: Less than 150 Normal 150-199 Borderline high risk 200-499 High risk 500 or higher Very high risk Performed By: #### G FR, CMP #### [place] [id number] MALBRon 11-15-2022 U Creatinine 109.9 mg/dL Normal 28.0-117.0 [facility] ([place] Comment on above: Performed By: #### G FR, CMP #### [address] [address] U Microalb 7702 mcg/dL Normal [facility] ([place] Comment on above: Performed By: #### G FR, CMP #### [address] [address] U Ratio Alb/Cre 70 mcg/mg High 0-30 [facility] ([place] Comment on above: Performed By: #### G , CMP #### [place] [address] VIDHon 11-15-2022 Vit. D 25-Hydroxy 52.1 ng/mL Normal [facility] ([place] Comment on above: Result Comment: Inte rpretive Values Based on Total 25(OH) Vitamin D: Deficient <20 ng/mL Insufficient 20 - <30 ng/mL Sufficient 30-100 ng/mL Performed By: #### V IDH, LIPID, CMP, GFR #### [place] [address] LABORATORYOrdered By: Susan Quinones on 05-04-2022 Albumin [...] W/TOMOon 12-08-2016 MA MAMMOGRAM SCREENING BILATERAL W/TRAV ORIGINALFROM:[address] [address]Icorx: [phone] PROCEDURE FOR:FILIB[id number] [place], [place] [address]Neba: [phone]#: [id number]#: [id number]#: [id number]: 3Age: 61 TO:CANDY WOODSON [address] [place], [place] [address] #[id number] DIGITAL SCREENING MAMMOGRAM 3D/2D WITH CAD WITH MEDIOLATERAL OBLIQUE CRANIOCAUDAL: 12/08/2016Comparison is made to exams dated: 09/17/2015 mammogram and 09/09/2014 mammogram - [facility]. There are scattered fibroglandular elements in both breasts. Current study was also evaluated with a Computer Aided Detection (CAD) system. There are benign calcifications in both breasts. No significant masses, calcifications, or other findings are seen in either breast. There has been no significant interval change. IMPRESSION: BENIGNThere is no mammographic evidence of malignancy. A 1 year screening mammogram is recommended. HENNA padgett/lciff:12/09/2016 10:52:33 Advertising Assistant Manager: MANUEL COLIN RT(R)(M)(CT) [facility]letter sent: Normal BI-RADS 1&2 Mammogram BI-RADS: 2 Benign Normal [facility] Vital Signs Date Time Vital Sign Value Performing Clinician Jorge Alberto rutledge 08-19-2024 14:24-0400 Diastolic blood pressure 98 mm[Hg] Candy Chintan [employer] OPERATOR HELPER[employer]C Work Phone: [facility] 08-19-2024 14:24-0400 Heart rate 64 /min Candy Chintan [employer] OPER[employer] HELPER[employer]C Work Phone: [facility] 08-19-2024 14:24-0400 Respiratory rate 18 /min Candy Dukes [employer] OPER[employer] HELPER[employer]C Work Phone: [facility] 08-19-2024 14:24-0400 SaO2% (BldA) [Mass fraction] 97 % Candy Chintan [employer] OPERATOR HELPER-C Work Phone: [facility] 08-19-2024 14:24-0400 Systolic blood pressure 186 mm[Hg] Candy Chintan [employer] OPERATOR HELPER[employer]C Work Phone: [facility] 08-19-2024 12:32-0400 Body height 175.26 cm Candy Chintan [employer] OPERATOR HELPER-C Work Phone: [facility] 08-19-2024 12:32-0400 Body mass index (BMI) [Ratio] 25.1 kg/m2 Candy Chintan [employer] OPERATOR HELPER[employer]C Work Phone: [facility] 08-19-2024 12:32-0400 Body weight 77.11 kg Candy Dukes [employer] OPERATOR HELPER[employer]C Work Phone: [facility] 05-24-2024 10:29-0500 Body height 176 cm MAURIZIO PENA MD [facility] 05-24-2024 10:29-0500 Body weight 82.7 kg MAURIZIO PENA MD [facility] 05-24-2024 10:29-0500 Body weight 26.7 kg/m2 MAURIZIO PENA MD [facility] 05-24-2024 10:23-0500 Body height 176 cm MAURIZIO PENA MD [facility] 05-24-2024 10:23-0500 Body weight 82.7 kg MAURIZIO PENA MD [facility] 06-14-2023 08:52-0500 Body temperature 97.4 [degF] [employer] OPERATOR HELPER-C Candy Woodson FRAMING MILL OPERATOR HELPER Work Phone: [facility] 06-14-2023 08:52-0500 Diastolic blood pressure 96 mm[Hg] [employer] OPERATOR HELPER[employer]C Candy Woodson FR[employer]ING M[employer] OPERATOR HELPER Work Phone: [facility] 06-14-2023 08:52-0500 Heart rate 69 /min [employer] OPERATOR HELPER[employer]C Candy Woodson [employer]ING [employer] OPERATOR HELPER Work Phone: [facility] 06-14-2023 08:52-0500 Respiratory rate 18 /min FRAMING MILL OPERATOR HELPER-C Candy Woodson FRAMING MILL OPERATOR HELPER Work Phone: [facility] 06-14-2023 08:52-0500 SaO2% (BldA) [Mass fraction] 98 % FRAMING MILL OPERATOR HELPER-C Candy Woodson FRAMING MILL OPERATOR HELPER Work Phone: [facility] 06-14-2023 08:52-0500 Systolic blood pressure 159 mm[Hg] FRAMING MILL OPERATOR HELPER-C Candy Woodson FRAMING MILL OPERATOR HELPER Work Phone: [facility] 06-14-2023 03:22-0500 Body mass index (BMI) [Ratio] 26 kg/m2 FRAMING MILL OPERATOR HELPER-C Candy Woodson FRAMING MILL OPERATOR HELPER Work Phone: [facility] 06-14-2023 03:22-0500 Body weight 79.8 kg FRAMING MILL OPERATOR HELPER-C Candy Woodson FRAMING MILL OPERATOR HELPER Work Phone: [facility] 06-12-2023 21:20-0500 Body height 175.26 cm FRAMING MILL OPERATOR HELPER-C Candy Woodson FRAMING MILL OPERATOR HELPER Work Phone: [facility] 06-12-2023 20:00-0500 Respiratory rate 16 /min FRAMING MILL OPERATOR HELPER-C Candy Woodson FRAMING MILL OPERATOR HELPER Work Phone: [facility] 06-12-2023 14:14-0500 Body mass index (BMI) [Ratio] 26.2 kg/m2 FRAMING MILL OPERATOR HELPER-C Candy Woodson FRAMING MILL OPERATOR HELPER Work Phone: [facility] 06-12-2023 14:14-0500 Body weight 82.8 kg FRAMING MILL OPERATOR HELPER-C Candy Woodson FRAMING MILL OPERATOR HELPER Work Phone: [facility] 06-12-2023 12:04-0500 Body height 177.8 cm FRAMING MILL OPERATOR HELPER-C Candy Woodson FRAMING MILL OPERATOR HELPER Work Phone: [facility] 06-12-2023 12:04-0500 Body temperature 96.6 [degF] FRAMING MILL OPERATOR HELPER-C Candy Woodson FRAMING MILL OPERATOR HELPER Work Phone: [facility] 06-12-2023 12:04-0500 Diastolic blood pressure 115 mm[Hg] FRAMING MILL OPERATOR HELPER-C Candy Woodson FRAMING MILL OPERATOR HELPER Work Phone: [facility] 06-12-2023 12:04-0500 Heart rate 108 /min FRAMING MILL OPERATOR HELPER-C Candy Woodson FRAMING MILL OPERATOR HELPER Work Phone: [facility] 06-12-2023 12:04-0500 SaO2% (BldA) [Mass fraction] 94 % FRAMING MILL OPERATOR HELPER-C Candy Woodson FRAMING MILL OPERATOR HELPER Work Phone: [facility] 06-12-2023 12:04-0500 Systolic blood pressure 164 mm[Hg] FRAMING MILL OPERATOR HELPER-C Candy Woodson FRAMING MILL OPERATOR HELPER Work Phone: [facility] 06-07-2023 11:00-0500 Body temperature 97.6 [degF] FRAMING MILL OPERATOR HELPER-C Candy Woodson FRAMING MILL OPERATOR HELPER Work Phone: [facility] 06-07-2023 11:00-0500 Diastolic blood pressure 87 mm[Hg] FRAMING MILL OPERATOR HELPER-C Candy Woodson FRAMING MILL OPERATOR HELPER Work Phone: [facility] 06-07-2023 11:00-0500 Heart rate 87 /min FRAMING MILL OPERATOR HELPER-C Candy Woodson FRAMING MILL OPERATOR HELPER Work Phone: [facility] 06-07-2023 11:00-0500 Respiratory rate 18 /min FRAMING MILL OPERATOR HELPER-C Candy Woodson FRAMING MILL OPERATOR HELPER Work Phone: [facility] 06-07-2023 11:00-0500 SaO2% (BldA) [Mass fraction] 97 % FRAMING MILL OPERATOR HELPER-C Candy Woodson FRAMING MILL OPERATOR HELPER Work Phone: [facility] 06-07-2023 11:00-0500 Systolic blood pressure 128 mm[Hg] FRAMING MILL OPERATOR HELPER-C Candy Woodson FRAMING MILL OPERATOR HELPER Work Phone: [facility] 06-06-2023 11:13-0500 Body mass index (BMI) [Ratio] 26.4 kg/m2 FRAMING MILL OPERATOR HELPER-C Candy Woodson FRAMING MILL OPERATOR HELPER Work Phone: [facility] 06-06-2023 11:13-0500 Body weight 82.32 kg FRAMING MILL OPERATOR HELPER-C Candy Woodson FRAMING MILL OPERATOR HELPER Work Phone: [facility] 05-31-2023 13:29-0500 Body height 176.53 cm FRAMING MILL OPERATOR HELPER-C Candy Woodson FRAMING MILL OPERATOR HELPER Work Phone: [facility] 05-27-2023 07:44-0500 Body temperature 97.6 [degF] FRAMING MILL OPERATOR HELPER-C Candy Woodson FRAMING MILL OPERATOR HELPER Work Phone: [facility] 05-27-2023 07:44-0500 Diastolic blood pressure 94 mm[Hg] FRAMING MILL OPERATOR HELPER-C Candy Woodson FRAMING MILL OPERATOR HELPER Work Phone: [facility] 05-27-2023 07:44-0500 Heart rate 63 /min FRAMING MILL OPERATOR HELPER-C Candy Woodson FRAMING MILL OPERATOR HELPER Work Phone: [facility] 05-27-2023 07:44-0500 Respiratory rate 16 /min FRAMING MILL OPERATOR HELPER-C Candy Woodson FRAMING MILL OPERATOR HELPER Work Phone: [facility] 05-27-2023 07:44-0500 SaO2% (BldA) [Mass fraction] 98 % FRAMING MILL OPERATOR HELPER-C Candy Woodson FRAMING MILL OPERATOR HELPER Work Phone: [facility] 05-27-2023 07:44-0500 Systolic blood pressure 162 mm[Hg] FRAMING MILL OPERATOR HELPER-C Candy Woodson FRAMING MILL OPERATOR HELPER Work Phone: [facility] 05-26-2023 08:02-0500 Body mass index (BMI) [Ratio] 25.4 kg/m2 FRAMING MILL OPERATOR HELPER-C Candy Woodson FRAMING MILL OPERATOR HELPER Work Phone: [facility] 05-26-2023 08:02-0500 Body weight 78.1 kg FRAMING MILL OPERATOR HELPER-C Candy Velasquezpkins FRAMING MILL OPERATOR HELPER Work Phone: [facility] Encounters Encounter Date Encounter Type Care Provider Facility Start: 04-09-2025 End: 04-09-2025 ambulatory CANDY WOODSON SHUTTLE PREPARATION SUPERVISOR - GRATED 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 Facility:[facility] Start: 04-09-2025 End: 04-09-2025 Patient encounter procedure CANDY ELLISKINS SHUTTLE PREPARATION SUPERVISOR - GRATED 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 [facility] Start: 12-26-2024 End: 12-26-2024 ambulatory CANDY WOODSON SHUTTLE PREPARATION SUPERVISOR - GRATED 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 Facility:[facility] Start: 12-26-2024 End: 12-26-2024 Patient encounter procedure CANDY WOODSON SHUTTLE PREPARATION SUPERVISOR - GRATED 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 [facility] Start: 12-03-2024 End: 12-03-2024 ambulatory CANDY WOODSON SHUTTLE PREPARATION SUPERVISOR - GRATED 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 Facility:[facility] Start: 12-03-2024 End: 12-03-2024 Patient encounter procedure CANDY WOODSON SHUTTLE PREPARATION SUPERVISOR - GRATED 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 [facility] Start: 08-28-2024 Encounter for other preprocedural examination Danielle Castillo [facility] Start: 08-19-2024 End: 08-19-2024 ambulatory Candy Woodson FRAMING MILL OPERATOR HELPER-C Work Phone: [facility] Work Phone: Start: 08-19-2024 End: 08-19-2024 Patient encounter procedure Danielle Castillo PA-C -Radiology, [facility] Work Phone: Start: 08-19-2024 End: 08-19-2024 ambulatory Candy Woodson FRAMING MILL OPERATOR HELPER Facility:[facility] Start: 08-16-2024 End: 08-20-2024 ambulatory CANDY WOODSON SHUTTLE PREPARATION SUPERVISOR - GRATED 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 Facility:[facility] Start: 07-15-2024 ambulatory HELIO CASTILLO Facility:[facility] Start: 07-05-2024 ambulatory CANDY SANDOVAL SHUTTLE PREPARATION SUPERVISOR - GRATED 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 Facility:[facility] Start: 06-14-2024 End: 06-14-2024 ambulatory MAURIZIO PENA MD Facility:[facility] Start: 06-14-2024 End: 06-14-2024 Patient encounter procedure MAURIZIO PENA MD [facility] Start: 06-13-2024 ambulatory CANDY Prabhakar VELASQUEZMimi JAIME SHUTTLE PREPARATION 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 - 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 Facility:[facility] Start: 05-30-2024 End: 05-30-2024 ambulatory CANDY Radford CHINTAN SHUTTLE PREPARATION SUPERVISOR - GRATED 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 Facility:[facility] Start: 05-30-2024 End: 05-30-2024 Patient encounter procedure CANDY Prabhakar VELASQUEZCHINTAN SHUTTLE PREPARATION SUPERVISOR - GRATED 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 [facility] Start: 05-24-2024 End: 05-24-2024 ambulatory MAURIZIO PENA MD Facility[facility] Start: 05-24-2024 End: 05-24-2024 SAME DAY STAY MAURIZIO PENA MD [facility] Start: 04-19-2024 End: 04-19-2024 ambulatory CANDY WOODSON SHUTTLE PREPARATION SUPERVISOR - GRATED 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 Facility:[facility] Start: 04-19-2024 End: 04-19-2024 Patient encounter procedure MAURIZIO PENA MD [facility] Start: 04-15-2024 End: 04-15-2024 ambulatory CANDY WOODSON SHUTTLE PREPARATION SUPERVISOR - GRATED 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 Facility:[facility] Start: 04-15-2024 End: 04-15-2024 Patient encounter procedure CANDY WOODSON SHUTTLE PREPARATION SUPERVISOR - GRATED 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 [facility] Start: 04-08-2024 End: 05-22-2024 Physical therapy management CANDY WOODSON SHUTTLE PREPARATION SUPERVISOR - GRATED 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 [facility] Start: 10-20-2023 End: 10-20-2023 ambulatory Candy Woodson FRAMING MILL OPERATOR HELPER Facility:[facility] Start: 10-06-2023 End: 10-07-2023 ambulatory CANDY WOODSON SHUTTLE PREPARATION SUPERVISOR - GRATED 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 Facility: Start: 10-06-2023 End: 10-06-2023 Patient encounter procedure CANDY WOODSON SHUTTLE PREPARATION SUPERVISOR - GRATED 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 [facility] Start: 09-29-2023 End: 09-29-2023 ambulatory Candy Woodson FRAMING MILL OPERATOR HELPER Facility:[facility] Start: 06-22-2023 End: 06-22-2023 ambulatory FRAMING MILL OPERATOR HELPER-C Candy Woodson FRAMING MILL OPERATOR HELPER Work Phone: [facility] Work Phone: Start: 06-22-2023 End: 06-22-2023 Departed Referred FRAMING MILL OPERATOR HELPER-C Candy Woodson FRAMING MILL OPERATOR HELPER Work Phone: [facility] Start: 06-22-2023 Registered Referred FRAMING MILL OPERATOR HELPER-C Sai Woodson FRAMING MILL OPERATOR HELPER Work Phone: [facility] Start: 06-15-2023 End: 06-15-2023 ambulatory FRAMING MILL OPERATOR HELPER-C Candy Woodson FRAMING MILL OPERATOR HELPER Work Phone: [facility] Work Phone: Start: 06-15-2023 End: 06-15-2023 Departed Referred FRAMING MILL OPERATOR HELPER-C Candy Velasquezpkins FRAMING MILL OPERATOR HELPER Work Phone: [facility] Start: 06-14-2023 Non-patient / Non-visit FRAMING MILL OPERATOR HELPER-C Howard Woodson FRAMING MILL OPERATOR HELPER Work Phone: [facility] Work Phone: Start: 06-13-2023 Non-patient / Non-visit FRAMING MILL OPERATOR HELPER-C Howard Woodson FRAMING MILL OPERATOR HELPER Work Phone: [facility] Work Phone: Start: 06-12-2023 Evaluation and manag ement of inpatient FRAMING MILL OPERATOR HELPER-C Candy Woodson FRAMING MILL OPERATOR HELPER [facility] Work Phone: Start: 06-12-2023 observation encounter FRAMING MILL OPERATOR HELPER-C Antony kim Chong Chintan FRAMING MILL OPERATOR HELPER Work Phone: [facility] Work Phone: Start: 06-12-2023 End: 06-14-2023 Evaluation and management of inpatient FRAMING MILL OPERATOR HELPER-C Candy Chintan FRAMING MILL OPERATOR HELPER Work Phone: [facility] Work Phone: Start: 06-12-2023 End: 06-14-2023 observation encounter FRAMING MILL OPERATOR HELPER-C Candy Chongalvaro VelasquezChintan FRAMING MILL OPERATOR HELPER Work Phone: [facility] Work Phone: Start: 06-12-2023 Non-patient / Non-visit FRAMING MILL OPERATOR HELPER-C Howard Woodson FRAMING MILL OPERATOR HELPER Work Phone: [facility] Work Phone: Start: 06-06-2023 Non-patient / Non-visit FRAMING MILL OPERATOR HELPER-C Howard Woodson FRAMING MILL OPERATOR HELPER Work Phone: [facility] Work Phone: Start: 06-02-2023 Non-patient / Non-visit FRAMING MILL OPERATOR HELPER-C R adeel Velasquezpkins FRAMING MILL OPERATOR HELPER Work Phone: [facility] Work Phone: Start: 05-29-2023 Non-patient / Non-visit FRAMING MILL OPERATOR HELPER-C R adeel Velasquezpkins FRAMING MILL OPERATOR HELPER Work Phone: [facility] Work Phone: Start: 05-27-2023 End: 06-07-2023 Evaluation and management of inpatient FRAMING MILL OPERATOR HELPER-C Candy Velasquezpkins FRAMING MILL OPERATOR HELPER Work Phone: [facility] Start: 05-26-2023 Non-patient / Non-visit FRAMING MILL OPERATOR HELPER-C R adeel Velasquezpkins FRAMING MILL OPERATOR HELPER Work Phone: [facility] Work Phone: Start: 05-25-2023 Non-patient / Non-visit FRAMING MILL OPERATOR HELPER-C R adeel Velasquezpkins FRAMING MILL OPERATOR HELPER Work Phone: [facility] Work Phone: Start: 05-24-2023 Non-patient / Non-visit FRAMING MILL OPERATOR HELPER-C R adeel Velasquezpkins FRAMING MILL OPERATOR HELPER Work Phone: [facility] Work Phone: Start: 05-22-2023 Non-patient / Non-visit FRAMING MILL OPERATOR HELPER-C R adeel Velasquezpkins FRAMING MILL OPERATOR HELPER Work Phone: [facility] Work Phone: Start: 05-18-2023 Non-patient / Non-visit FRAMING MILL OPERATOR HELPER-C R ichfrank Dukes FRAMING MILL OPERATOR HELPER Work Phone: [facility] Work Phone: Start: 05-17-2023 Non-patient / Non-visit FRAMING MILL OPERATOR HELPER-C R ichfrank Dukes FRAMING MILL OPERATOR HELPER Work Phone: [facility] Work Phone: Start: 05-16-2023 Non-patient / Non-visit FRAMING MILL OPERATOR HELPER-C Howard Woodson FRAMING MILL OPERATOR HELPER Work Phone: [facility] Work Phone: Start: 05-15-2023 End: 05-27-2023 Evaluation and management of inpatient FRAMING MILL OPERATOR HELPER-C Candy Woodson FRAMING MILL OPERATOR HELPER Work Phone: [facility] Work Phone: Start: 03-21-2023 End: 03-22-2023 ambulatory CANDY WOODSON SHUTTLE PREPARATION SUPERVISOR - GRATED 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 Facility:[facility] Start: 03-21-2023 End: 03-21-2023 Patient encounter procedure CANDY WOODSON SHUTTLE PREPARATION SUPERVISOR - GRATED 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 [facility] Start: 03-13-2023 End: 03-14-2023 ambulatory CANDY WOODSON SHUTTLE PREPARATION SUPERVISOR - GRATED 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 Facility:[facility] Start: 11-15-2022 End: 11-16-2022 ambulatory CANDY WOODSON SHUTTLE PREPARATION SUPERVISOR - GRATED 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 Facility:[facility] Start: 11-14-2022 End: 11-14-[address] LAWANDA VÁSQUEZ MD Facility:[facility] Start: 06-28-2022 End: 06-28-2022 Patient encounter procedure CANDY WOODSON SHUTTLE PREPARATION SUPERVISOR - GRATED 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 [facility] Start: 05-04-2022 End: 05-04-2022 Patient encounter procedure CANDY WOODSON SHUTTLE PREPARATION SUPERVISOR - GRATED 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 [facility] Start: 04-22-2021 End: 04-22-2021 Patient encounter procedure CANDY WOODSON SHUTTLE PREPARATION SUPERVISOR - GRATED 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 [facility] Start: 08-11-2020 End: 08-11-2020 Discharged Recurring [facility] Start: 12-08-2016 End: 12-09-2016 Ambulatory PHY WO ID REFERRING Facility[facility] Procedures Date Procedure Procedure Detail Performing Clinician Start: 08-19-2024 Computerized axial tomography of lumbar spine with contrast Candy Woodson FRAMING MILL OPERATOR HELPER-C Work Phone: Start: 08-19-2024 Myelogram Candy To mpkins FRAMING MILL OPERATOR HELPER-C Work Phone: Start: 05-24-2024 Case Cancelled in me Day 1 MAURIZIO PENA MD Comment on above: auto-populated from documented surgical case Start: 06-14-2023 Viral antigen assay FRAMING MILL OPERATOR HELPER- C Candy Woodson FRAMING MILL OPERATOR HELPER Work Phone: Start: 06-13-2023 Nucleic acid assay FRAMING MILL OPERATOR HELPER-C Candy Woodson FRAMING MILL OPERATOR HELPER Work Phone: Start: 06-12-2023 Urine culture FRAMING MILL OPERATOR HELPER-C Rich frank Woodson FRAMING MILL OPERATOR HELPER Work Phone: Start: 06-06-2023 Viral antigen assay FRAMING MILL OPERATOR HELPER- C Candy Woodson FRAMING MILL OPERATOR HELPER Work Phone: Start: 05-25-2023 Viral antigen assay FRAMING MILL OPERATOR HELPER- C Candy Woodson FRAMING MILL OPERATOR HELPER Work Phone: Start: 05-05-2023 Lumbar spine structu re (body structure) MAURIZIO PENA MD Start: 05-02-2017 Bone density scan SAI GEMMA WOODSON SHUTTLE PREPARATION SUPERVISOR - GRATED 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 Start: 06-05-2011 Colonoscopy CANDY TO MPKINS SHUTTLE PREPARATION SUPERVISOR - GRATED 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 Comment on above: 2021 Start: 06-05-1985 Colposcopy CANDY TO MPKINS SHUTTLE PREPARATION SUPERVISOR - GRATED 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 Start: 06-05-1961 Appendectomy CANDY TO MPKINS SHUTTLE PREPARATION SUPERVISOR - GRATED 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 History of excision of lamina of lumbar vertebra for decompression of spinal cord Hx of decompressive lumbar laminectomy FRAMING MILL OPERATOR HELPER-C Candy Woodson FRAMING MILL OPERATOR HELPER Work Phone: Comment on above: With fusion Plan of Treatment Date Care Activity Detail Author Start: 06-15-2023 Blood chemistry [facility] Start: 06-14-2023 Patient discharge [facility] Start: 06-13-2023 Measurement of occult blood in stool specimen using immunoassay [facility] Start: 06-13-2023 Protein measurement [facility] Start: 06-12-2023 Following clinical pathway protocol [facility] Start: 06-12-2023 Assessment of risk of venous thromboembolism [facility] Start: 06-12-2023 Fall prevention [facility] Start: 06-12-2023 Incentive spirometry [facility] Start: 06-12-2023 Inhalation therapy procedure [facility] Start: 06-12-2023 Insertion of catheter into peripheral vein [facility] Start: 06-12-2023 Introduction of urinary catheter [facility] Start: 06-12-2023 Measuring intake and output [facility] Start: 06-12-2023 Oxygen therapy [facility] Start: 06-12-2023 Providing care according to standard [facility] Start: 06-12-2023 Provision of activity privileges [facility] Start: 06-12-2023 Referral to occupational therapist [facility] Start: 06-12-2023 Referral to service [facility] Start: 06-12-2023 Tobacco use cessation education [facility] Start: 06-12-2023 [facility] Start: 06-12-2023 Verification routine [facility] Start: 06-12-2023 Admission procedure [facility] Start: 06-12-2023 Hospital admission, emergency, from emergency room, medical nature [facility] Start: 06-12-2023 Clostridioides difficile DNA [Presence] in Unspecified specimen by VIKASH with probe detection [facility] Start: 06-12-2023 Enteric precautions [facility] Start: 06-12-2023 Referral to occupational therapist [facility] Start: 06-12-2023 Referral to service [facility] Start: 06-12-2023 [facility] Start: 06-12-2023 Bacteria identified in Urine by Culture Urine Culture [facility] Start: 06-12-2023 Respiratory Panel (PCR) Respiratory Panel (PCR) [facility] Start: 06-06-2023 Patient discharge [facility] Start: 06-06-2023 Development of care plan [facility] Start: 05-31-2023 [facility] Start: 05-31-2023 Removal of device [facility] Start: 05-28-2023 Developing a treatment plan [facility] Start: 05-28-2023 Development of care plan [facility] Start: 05-28-2023 End: 05-29-2023 [facility] Start: 05-27-2023 Recommendation to continue with treatment [facility] Start: 05-27-2023 Admission procedure [facility] Start: 05-27-2023 Measuring intake and output [facility] Start: 05-27-2023 Patient referral to dietitian [facility] Start: 05-27-2023 Referral to occupational therapist [facility] Start: 05-27-2023 Referral to service [facility] Start: 05-27-2023 Vital signs measurements [facility] Start: 05-27-2023 [facility] Start: 05-27-2023 Referral to service [facility] Start: 05-27-2023 Referral to occupational therapist [facility] Start: 05-27-2023 Provision of activity privileges [facility] Start: 05-26-2023 Patient discharge [facility] Start: 05-15-2023 Recommendation to continue with treatment [facility] Start: 05-15-2023 Referral to service [facility] Start: 05-15-2023 Urinary bladder training [facility] Start: 05-15-2023 Wound care [facility] Start: 05-15-2023 Admission procedure [facility] Start: 05-15-2023 Patient referral to dietitian [facility] Start: 05-15-2023 Referral to occupational therapist [facility] Start: 05-15-2023 Vital signs measurements [facility] Start: 05-15-2023 End: 05-15-2023 [facility] Gastrointestinal pat phaneuf hospital panel - Stool by VIKASH with probe detection [facility] Giardia lamblia Ag [Presence] in Stool by Immunoassay [facility] Lactoferrin [Presenc e] in Stool by Immunoassay [facility] Patient Education [facility] Work Phone: Patient referral [facility] Work Phone: Respiratory pathogen s DNA and RNA panel - Respiratory specimen by VIKASH with probe detection [facility] Immunizations Immunization Date Immunization Notes Care Provider Rogelio carreon 03-19-2024 influenza, high dose seasonal, preservative-free; Translations: [Fluad PF Prefilled Syringe ] CANDY WOODSON SHUTTLE PREPARATION SUPERVISOR - GRATED 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 [facility] 05-31-2023 Covid (Spikevax) FRAMING MILL OPERATOR HELPER-C Rolando Woodson FRAMING MILL OPERATOR HELPER Work Phone: [facility] 03-06-2023 influenza, injectabl e, quadrivalent, preservative free FRAMING MILL OPERATOR HELPER-C Candy Woodson FRAMING MILL OPERATOR HELPER Work Phone: [facility] 03-06-2023 influenza, high dose seasonal, preservative-free; Translations: [Fluad Quadrivalent PF ] CANDY WOODSON SHUTTLE PREPARATION SUPERVISOR - GRATED 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 [facility] 05-05-2022 Covid Pfizer Bivalen t Booster FRAMING MILL OPERATOR HELPER-C Candy Woodson FRAMING MILL OPERATOR HELPER Work Phone: [facility] 03-29-2022 influenza, high dose seasonal, preservative-free CANDY WOODSON SHUTTLE PREPARATION SUPERVISOR - GRATED 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 [facility] 05-11-2021 influenza, high dose seasonal, preservative-free; Translations: [Fluad Quadrivalent PF ] CANDY WOODSON SHUTTLE PREPARATION SUPERVISOR - GRATED 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 [facility] 04-08-2021 SARS-CoV-2 mRNA (tozinameran) vaccine CANDY WOODSON SHUTTLE PREPARATION SUPERVISOR - GRATED 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 [facility] Comment on above: Result Comment: 2020: [id number] 09-01-2020 Covid (Pfizer) [facility] Work Phone: 08-11-2020 Covid (Pfizer) [facility] Work Phone: Comment on above: Result Comment: 2020: [id number] 2020 influenza, injectabl e, quadrivalent, preservative free; Translations: [Fluarix PF Quadrivalent ] CANDY ELLISKINS SHUTTLE PREPARATION SUPERVISOR - GRATED 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 [facility] 04-25-2019 influenza, injectabl e, quadrivalent, preservative free; Translations: [Fluarix PF Quadrivalent ] CANDY WOODSON SHUTTLE PREPARATION SUPERVISOR - GRATED 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 [facility] Comment on above: Early/Late Reason: O ther: 08-21-2018 pneumococcal conjuga te vaccine, 13 valent CANDY WOODSON SHUTTLE PREPARATION SUPERVISOR - GRATED 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 [facility] 04-17-2018 influenza virus vacc ine, unspecified formulation CANDY WOODSON SHUTTLE PREPARATION SUPERVISOR - GRATED 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 [facility] 04-20-2017 influenza virus vacc ine, unspecified formulation CANDY WOODSON SHUTTLE PREPARATION SUPERVISOR - GRATED 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 [facility] 06-09-2016 zoster vaccine, live CANDY WOODSON SHUTTLE PREPARATION SUPERVISOR - GRATED 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 [facility] 05-10-2016 influenza virus vacc ine, unspecified formulation CANDY WOODSON SHUTTLE PREPARATION SUPERVISOR - GRATED 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 [facility] 05-10-2016 pneumococcal polysaccharide vaccine, 23 valent CANDY WOODSON SHUTTLE PREPARATION SUPERVISOR - GRATED 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 [facility] 08-29-2013 tetanus toxoid, redu montrell diphtheria toxoid, and acellular pertussis vaccine, adsorbed CANDY WOODSON SHUTTLE PREPARATION SUPERVISOR - GRATED 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 [facility] Payers Date Payer Category Payer Private Health Insurance [id number] 2023 Unknown [id number] 2023 [id number] [id number] 2021 Unknown [id number] 2019 Medicare [id number] 2018 Medicare [id number] 2004 Unknown [id number] 1955 Unknown [id number] 2.16.8 40.1.152694.3.579.2.627 1955 Unknown [id number] 2.16.8 40.1.955034.3.579.2.62 1955 Unknown [id number] 2.16.8 40.1.146155.3.579.2.627 1955 Unknown [id number] 2.16.8 40.1.454932.3.579.2.627 1955 Unknown [id number] 2.16.8 40.1.725358.3.579.2.627 1955 Unknown [id number] 2.16.8 40.1.599145.3.579.2.627 1955 Unknown [id number] 2.16.8 40.1.046501.3.579.2.62 1955 Unknown [id number] 2.16. 840.1.521149.3.579.2.62 1955 Unknown [id number] 2.16. 840.1.432339.3.579.2. 1955 Unknown [id number] 2.16. 840.1.243471.3.579.2.62 1955 Unknown [id number] 2.16.8 40.1.708485.3.579.2. 1955 Unknown [id number] 2.16.8 40.1.918881.3.579.2. 1955 Unknown [id number] 2.16.8 40.1.470632.3.579.2. 1955 Unknown [id number] 2.16.8 40.1.520734.3.579.2.62 1955 Unknown [id number] 2.16.8 40.1.807512.3.579.2. 1955 Unknown [id number] 2.16.8 40.1.132254.3.579.2.627 1955 Unknown [id number] 2.16.8 40.1.226854.3.579.2.627 Unknown [id number] Unknown [id number] 2.16.8 40.1.418025.3.579.2.462 Unknown [id number] 2.16.8 40.1.624517.3.579.2.462 Unknown [id number] 2.16.8 40.1.287613.3.579.2.462 Social History Date Type Detail Facility [facility] Work Phone: Start: 1955 Sex Assigned At Female [facility] Work Phone: Start: 04-23-2019 End: 12-10-2024 Heavy tobacco smoker (finding) [facility] Comment on above: Daily smoke exposure Start: 05-27-2023 End: 06-12-2023 Tobacco smoking status NHIS Unknown if ever smoked [facility] Sexual [facility] Start: 11-28-2018 End: 08-28-2024 Sex Female (finding) [facility] Start: 06-12-2023 Tobacco smoking stat us NHIS Current some day smoker [facility] Goals Date Patient Goal Desired Activity /State Functional Status Date Assessment Result Facility 05-24-2024 Functional Status Up to chair [facility] 06-14-2023 Functional status Ambulates [facility] Work Phone: 06-07-2023 Functional status Up ad olga [facility] Work Phone: 06-06-2023 Functional status Tolerates Activity Well [facility] Work Phone: 05-27-2023 Functional status Ambulates [facility] Work Phone: 05-26-2023 Functional status Tolerates Activity Well [facility] Work Phone: Mental Status Date Assessment Result Facility 08-19-2024 Cognitive function Level Of Cons ciousness Awake;Alert;Appropriate [facility] Work Phone: 08-19-2024 Cognitive function Patient Orien tation Person;Place;Time [facility] Work Phone: 05-24-2024 Mental Status Orientation Oriented x 4 [facility] 06-13-2023 Cognitive function Voice/Name [facility] Work Phone: 06-07-2023 Cognitive function Voice/Name [facility] Work Phone: 06-03-2023 Cognitive function Appropriate;Cooperdeepthi gama [facility] Work Phone: 05-27-2023 Cognitive function Voice/Name [facility] Work Phone: Clinical Notes 05-29-2023 to 08-19-2024 Note Date & Type Note Facility 08-19-2024 Radiology Diagnostic study note [facility] Imaging Services [address] [place] [address] Spine Lumbar WITH Contrast MR#: [id number] Acct: [id number] Name: FILIBERTO VALDIVIA Rep #: [id number] : 1955 F 69 From: Doc Pitts MD PCP: Candy Woodson NP-C Status: REG CLI Study:Spine Lumbar WITH Contrast Date of Exam : 08/19/24 Exam# [id number] Ordering Dr: Danielle Hong PA-C PROCEDURE: SPINE [...] worse at the L5-S1 level. Reading Location: [facility] CC: SCOOTER Woodson; HELIO Castillo ~ Educational Fundraising Director: Signed [facility] 08-19-2024 Radiology Diagnostic study note [facility] Imaging Services [address] [place] [address] Lumbar Myelogram MR#: [id number] Acct: [id number] Name: FILIBERTO VALDIVIA Rep #: [id number] : 1955 F 69 From: Doc Pitts MD PCP: SCOOTER Newton Status: REG CLI Study:Lumbar Myelogram Date of Exam: Exam# [id number] Ordering Dr: Danielle Hong PA-C PROCEDURE: LUMBAR [...] well. CT we will follow. Reading Location: [place] [address] CC: SCOOTER Woodson; HELIO Castillo ~ Educational Fundraising Director: Signed [facility] 06-14-2024 Note Exam Date Time Procedure Performing Provider Status 06/14/24 11:44 AM XR Hip 2-3 Views Left CURT RAPHAEL MD; Auth (Verified) [id number] ORIGINAL EXAMINATION: 2 XRAY VIEWS OF THE [...] remarkable for mild enthesopathic spur formation. IMPRESSION: Gfle-lp-kczskrns osteoarthritis of the left hip. Interpreted by: Curt Raphael MD Preliminary Report By: Curt Raphael MD Electronically signed By Curt Rapheal MD Dictated Date: 06/15/2024 12:22:47 AM Prelim Date: 06/15/2024 12:24:31 AM Sign Date: 06/15/2024 12:24:31 AM Ordering Provider: MAURIZIO PENA [facility]12-26-2024 Note* Exam Date Time Procedure Performing Provider Status 05/30/24 9:57 AM US Breast Right Limited FELISA DE LEON MD; Auth (Verified) [id number] ORIGINAL FROM: [address] [address] PROCEDURE FOR: FILIBERTO CORMIER [address] [place] [address] Home: PID#: [id number] Exam#: [id number] : 1955 Age: 69 TO: CANDY WOODSON SHUTTLE PREPARATION SUPERVISOR [facility] [address] [place] [address] Fax: NO FAX EXAMINATION: ULTRASOUND OF THE [...] addition to annual mammographic screening per the [place]. BIRADS: BI-RADS: 3: Probably Benign [...] CANDY WOODSON CLINICAL: PALPABLE LUMP RIGHT BREAST. Advertising Assistant Manager: TRACEY INIGUEZ RT(R)(M) RDMS letter sent: Probably Benign BI-RADS 3 Ultrasound BI-RADS: [address] [facility]12-26-2024 Note* Exam Date Time Procedure Performing Provider Status 05/30/24 9:04 AM MA Mammo Diagnostic Bilateral w/FELISA Cifuentes MD; Auth (Verified) [id number] ORIGINAL FROM: [facility] [address] [place] [address] PROCEDURE FOR: FILIBERTO Lane CORMIER [address] [place] [address] Home: PID#: [id number] Exam#: [id number] : 1955 Age: 69 TO: CANDY WOODSON SHUTTLE PREPARATION SUPERVISOR 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 [address] [facility] [address] [place] [phone] Fax: NO FAX EXAMINATION: DIAGNOSTIC BILATERAL MAMMOGRAM [...] addition to annual mammographic screening per the [place]. BIRADS: BI-RADS: 0: Incomplete: Need [...] CANDY WOODSON CLINICAL: PALPABLE LUMP RIGHT BREAST. Advertising Assistant Manager: MC YAÑEZ RT(R)(M)(CT) letter sent: Abnormal-Needs additional work up BI-RADS 0 Mammogram BI-RADS: [address] [facility]11-15-2024 Note ORIGINAL EXAMINATION: AP and lateral [...] Sign Date: 04/19/2024 2:52:45 PM Ordering Provider: [facility]11-15-2024 Note ORIGINAL EXAMINATION: 2 XRAY VIEWS [...] Sign Date: 04/19/2024 2:46:28 PM Ordering Provider: [facility]01-09-2024 Progress note Author Adán Khalil [facility] June 13, 2023 5:05pm Note Date/Time June 13, 2023 10 :26am [facility] Medical Records Department [address] [place] [address] Progress Note - Hospitalist 06/13/23 1025 MR#: [id number] Acct: [id number] Name: FILIBERTO VALDIVIA Rep #: [id number] : 1955 68 From: Adán Radford PCP: SCOOTER Newton Sta tus:ADM TESS Location: [address] Reason for Visit Reason for Visit: [...] 78.9 H, Lymph % (Auto) 12.3 L, [place] % (Auto) 7.7, Eos % (Auto) 0.4, [...] Sl. Cloudy, Urine pH 5.0, Ur Specific [place] 1.020, Urine Protein 100 H, Urine Glucose [...] % (Auto) 64.9, Lymph % (Auto) 21.1, [place]% (Auto) 10.3 H, Eos % (Auto) 2.7, [...] surgery of hemilaminectomy in May 2023 by [facility]. #1. 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 Charges/Coding Visit Charges Inpatient E&M: 96096 Subs Hosp L2 06/13/23 2662 <Electronically signed by Adán Khalil MD> Cosigner Signature (if applicable): CC: ~ Signed [facility] Work Phone: 1(960) 650-457501-09-2024 Discharge summary Author Ash Geller [facility] June 13, 2023 3:19pm Note Date/Time June 12, 2023 12 :29pm [facility] Medical Records Department [address] [place] [address] Emergency Department Summary 06/12/23 MR#: [id number] Acct: [id number] Name: FILIBERTO VALDIVIA Rep #: [id number] : 1955 68 From: Ash Cartagena PCP: SCOOTER Newton tus:ADM TESS Location: [place] [address]-1 HPI <SCOOTER Valdes - Last Filed: 06/12/23 [...] any antibiotics. She is currently ongabapentin and Russell. She states that she has 3-4 loose [...] occupational status: retired current occupation: Worked at [employer] pets and animals: Yes pets and animals: [...] 78.9 H Lymph % (Auto) 12.3 L [place] % (Auto) 7.7 Eos % (Auto) 0.4 [...] Sl. Cloudy Urine pH 5.0 Ur Specific [place] 1.020 Urine Protein 100 H Urine Glucose [...] over self-pay options with the patient. The retirement/rehab facility was unable to have a bed until tomorrow. I willwithout call for admission for observation for the patient. The patient feels unsafe going home and feels that she needs rehab. <Dr. Ash Geller, DO - Last Filed: 06/12/23 15:35> [facility] Narrative Medical decision making narrative: I have [...] feel she is safe to go home. rubber factory worker was in to evaluate the patient and states that the patient does qualify for rehab. She contacted the TCU. They stated that patient would need a PT/OT evaluation before they can accept her into their unit. rubber factory worker is checking to see if this [...] 78.9 H Lymph % (Auto) 12.3 L [place] % (Auto) 7.7 Eos % (Auto) 0.4 [...] Sl. Cloudy Urine pH 5.0 Ur Specific [place] 1.020 Urine Protein 100 H Urine Glucose [...] of decompressive lumbar laminectomy, Diarrhea Disposition Disposition: [facility] What to do if you have Problems For any increased pain, shortness of breath, bleeding, nausea or vomiting, chestpain, or any unexpected problems, contact your Primary Care Provider. Call [facility] ([phone]) or report to the closest Emergency Room. Call 911 if necessary. 06/13/23 1519 <Electronically signed by Ash Geller DO> Cosigner Signature (if applicable): 06/12/23 1804 <Electronically signed by Jabari HELMS> CC: SCOOTER Woodson ~ Signed [facility] Work Phone: 1(324) 853-610301-08-2024 History and physical note Author Jeri Burns [facility] June 12, 2023 7:18pm Note Date/Time June 12, 2023 5: 53pm [facility] Medical Records Department [address] [place] [address] H&P Exam - Hospitalist 06/12/23 1753 MR#: [id number] Acct: [id number] Name: FILIBERTO VALDIVIA Rep #: [id number] : 1955 68 From: Jeri Burns MD [...] occupational status: retired current occupation: Worked at [employer] pets and animals: Yes pets and animals: [...] 78.9 H, Lymph % (Auto) 12.3 L, [place] % (Auto) 7.7, Eos % (Auto) 0.4, [...] Sl. Cloudy, Urine pH 5.0, Ur Specific [place] 1.020, Urine Protein 100 H, Urine Glucose [...] 16 minutes. Charges/Coding Visit Charges Inpatient E&M: 51286 Init Hosp L2 Procedures Hospitalists Procedures: 26634 Advncd Care Plan 30 Min 06/12/231917 <Electronically signed by Jeri Burns MD> Cosigner Signature (if applicable): CC: SCOOTER Woodson; Dr. Jeri Burns MD~ Signed [facility] Work Phone: 1(321) 360-215501-08-2024 History and physical note Author Jeri Burns [facility] June 12, 2023 7:18pm Note Date/Time June 12, 2023 5: 53pm [facility] Medical Records Department [address] [place] [address] H&P Exam - Hospitalist 06/12/23 1753 MR#: [id number] Acct: [id number] Name: FILIBERTO VALDIVIA Rep #: [id number] : 1955 68 From: Jeri Burns MD [...] well as hydrocodone 1 tablet x 1. [facility] Medical History Anxiety Basal cell carcinoma Chronic [...] occupational status: retired current occupation: Worked at [employer] pets and animals: Yes pets and animals: [...] 78.9 H, Lymph % (Auto) 12.3 L, [place] % (Auto) 7.7, Eos % (Auto) 0.4, [...] Sl. Cloudy, Urine pH 5.0, Ur Specific [place] 1.020, Urine Protein 100 H, Urine Glucose [...] 16 minutes. Charges/Coding Visit Charges Inpatient E&M: 58236 Init Hosp L2 Procedures Hospitalists Procedures: 42495 Advncd Care Plan 30 Min 06/12/231917 <Electronically signed by Jeri Burns MD> Cosigner Signature (if applicable): CC: SCOOTER Woodson; Dr. Jeri Burns MD~ Signed [facility] Work Phone: 1(807) 541-738001-02-2024 Discharge summary Author Ava Montanodelbert [facility] June 06, 2023 5:45pm Note Date/Time June 06, 2023 5: 45pm [facility] Medical Records Department [facility] [place] [address] Discharge Summary 06/06/23 1725 MR#: [id number] Acct: [id number] Name: FILIBERTO VALDIVIA Rep #: [id number] : 1955 68 From: Ava Castle DO PCP: SCOOTER Newton tus:ADM IN Location: [place] [id number] Providers Date of Admission: 05/27/23 Date of [...] 1. Discharge home with outpatient therapy at [facility] 2. Patient is unsafe to use [...] laminectomy and fusion on 05/09/2023 at the [facility] by Dr. eLon) Procedures None Summary of Care Provided Minutes Spent on Discharge: 35 Hospital Course: FILIBERTO CORMIER, is a 68 F with PMH of HTN, HLD, Anxiety, chronic backpain with radiculopathy to the BL extremities, vitamin D deficiency and tobacco dependence who underwent a lumbar laminectomy and fusion at the [facility] by Dr. J Luis Leon on 05/09/2023. There were no post surgical complications and she was transferred to the acute inpt rehab unit at [facility] on 05/15/23 for 3 hours of therapy daily. She lives alone. She will not be able to drive post discharge. At the time of DC from acute rehab Filiberto did not feel ready/safe to go home by herself and she has no one to help her at home. She was transferred to the transitional care unit at [facility] on 05/27/2023 for additional therapy prior [...] visit. She is using 5 mg of Russell 5/325mg 2-3 times a day and 2 [...] is going to [place] at [facility] and the has arranged for the [...] [facility] Primary Care Provider: Candy Woodson FRAMING MILL OPERATOR HELPER Instructions Patient Instructions: Caring for [...] to call me. Happy new year. OFFICE: [phone] CELL: [phone] Discharge Orders/Prescriptions Prescriptions: New gabapentin 100 mg [...] above. bisacodyl 10 mg Suppository 10 mg IA X1 PRN (Reason: Constipation) Qty: 1 0RF gabapentin 300 mg Capsule 300 mg PO 2000 Qty: 1 0RF tizanidine 2 mg capsule 2 mg PO QHS Qty: 1 0RF Referrals / Follow Up: J Luis Leon MD [Non-Staff] - 06/09/23 9:00 am Candy Woodson FRAMING MILL OPERATOR HELPER, FRAMING MILL OPERATOR HELPER-C [Primary Care Provider] - (Filiberto to make this appointment) Disposition Disposition (needs filled in before D/C Order can be placed): Home, Self Care Charges/Coding Visit Charges Inpatient E&M: 57189 SNF Disch >30 Min 06/06/23 8843 <Electronically signed by Ava Castle DO> Cosigner Signature (if applicable): CC: FRAMING MILL OPERATOR HELPER-C Candy Woodson; Dr. J Luis Leon MD; Dr. Ava Luque DO~ Signed [facility] Work Phone: 1(494) 445-498901-02-2024 Discharge summary Author Ava Castle [facility] June 06, 2023 5:25pm Note Date/Time June 06, 2023 1: 54pm [facility] Medical Records Department [address] [place] [address] Instructions for Home/Discharge Instructions 06/06/23 1344 MR#: [id number] Acct: [id number] Name: FILIBERTO VALDIVIA Rep #: [id number] : 1955 68 From: Ava Castle PCP: SCOOTRE Newton tus:ADM IN Discharge Instructions Diet Discharge [...] to call me. Happy new year. OFFICE: [phone] CELL: [phone] Discharge Orders/Prescriptions Prescriptions: New gabapentin 100 mg [...] above. bisacodyl 10 mg Suppository 10 mg IA X1 PRN (Reason: Constipation) Qty: 1 0RF gabapentin 300 mg Capsule 300 mg PO 1999 Qty: 1 0RF tizanidine 2 mg capsule 2 mg PO QHS Qty: 1 0RF Referrals / Follow Up: J Luis Leon MD [Non-Staff] - 06/09/23 9:00 am Candy Woodson NP, FRAMING MILL OPERATOR HELPER-C [Primary Care Provider] - (Filiberto to make this appointment) Disposition Disposition (needs filled in before D/C Order can be placed): Home, Self Care 06/06/23 9259<Electronically signed by Ava Castle DO>Ava Castle DO CC: TWILAC Candy Woodson; Dr. J Luis Leon MD ~ Signed [facility] Work Phone: 1(154) 875-614112-29-2023 Progress note Author [facility] June 02, 2023 6:08pm Note Date/Time May 31, 2023 4:12pm [facility] Medical Records Department [address] [place] [address] Progress Note - Pharmacy 05/31/23 1611 MR#: [id number] Acct: [id number] Name: PATRIZIA CORMIERFILIBERTO RE Rep #: [id number] : 1955 68 From: Korin Matthew PCP: SCOOTER Newton Sta tus:ADM IN Location: [facility] TCU RX Drug Regimen Review Subjective/Objective Subjective/Objective: [...] 06:20 Assessment/Plan: 1. Pain (chronic back pain): Russell 5/325mg 2T PO QHS and 1-2T PO [...] by Ava Castle DO> CC: ~ Signed [facility] Work Phone: 1(937) 750-300412-29-2023 Progress note Author Ava Castle [facility] June 02, 2023 5:15pm Note Date/Time June 02, 2023 5:15pm [facility] Medical Records Department [address] [place] [address] Progress Note 06/02/231711 MR#: [id number] Acct: [id number] Name: FILIBERTO VALDIVIA Rep #: [id number] : 1955 68 From: Ava Castle DO PCP: SCOOTER Newton tus:ADM IN Location: [place] [address]- Progress Note Continues to c/o R buttock [...] <Electronically signed by Ava Castle DO> Ava aCstle DO Cosigner Signature (if applicable): CC: ~ Signed [facility] Work Phone: 1(866) 691-258312-25-2023 History and physical note Author Ava Montanodelbert [facility] May 29, 2023 2:58pm Note Date/Time May 29, 2023 10:30am [facility] Medical Records Department [address] [place] [address] History & Physical Exam 05/29/23 1007 MR#: [id number] Acct: [id number] Name: FILIBERTO VALDIVIA Rep #: [id number] : 1955 68 From: Ava Castle DO PCP: SCOOTER Newton tus:ADM IN Location: [place] [address] HPI - General General Date of Admission: [...] bisacodyl 10 mg rectal suppository 10 mg IA X1 PRN Constipation #1 ea 05/26/23 [Rx [...] occupational status: retired current occupation: Worked at [employer] pets and animals: Yes pets and animals: [...] no [] Charges/Coding Visit Charges Inpatient E&M: 37307 SNF Init L2 05/29/23 1030 <Electronically signed by Ava Castle DO> Cosigner Signature (if applicable): CC: SCOOTER Woodson; Dr. Ava Castle DO~ Signed ADDENDUM by Dr. Ava Castle DO on 05/29/23 at 1254 Addendum [...] Woodson; Dr. Ava Castle DO ~* Signed [facility] Work Phone: Consult note Author Korin Matthew [facility] June 14, 2023 10:43am Note Date/Time June 14, 2023 1 0:43am [facility] Medical Records Department [address] [place] [address] Counseling Note - Pharmacy 06/14/23 1043 MR#: [id number] Acct: [id number] Name: FILIBERTO VALDIVIA Rep #: [id number] : 1955 68 From: Korin Matthew PCP: SCOOTER Newton Sta tus:ADM TESS Y Location: [place] [address] Pharmacy [place] [facility] Reconciliation Pharmacy Service has performed discharge [...] Signature (if applicable): Date CC: ~ Signed [facility] Work Phone: Discharge summary Author Adán Khalil [facility] June 14, 2023 10:11am Note Date/Time June 14, 2023 1 0:09am [facility] Medical Records Department [address] [place] [address] Transfer to [facility] MR#: [id number] Acct: [id number] Name: FILIBERTO VALDIVIA Rep #: [id number] : 1955 68 From: Adán Radford PCP: SCOOTER Newton tus:ADM TESS Certification of patient admission REQUIRED AT TIME OF ADMISSION. I CERTIFY THAT POST-HOSPITAL [facility] SERVICES ARE REQUIRED TO BE GIVEN ON AN IN-PATIENT BASIS BECAUSE OF THE ABOVE NAMED PATIENT'S NEED FOR FPC CARE ON A CONTINUING BASIS FOR THE CONDITION(S) FOR WHICH HE/SHE WAS RECEIVING IN-PATIENT HOSPITAL SERVICES PRIOR TO HIS/HER TRANSFER TO THE [facility]. 06/14/23 1011<Electronically signed by Adán Khalil [...] surgery of hemilaminectomy in May 2023 by [facility]. #1. 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 Stool for enteric pathogen is [...] Adán Khalil Primary Care Provider: Candy Woodson FRAMING MILL OPERATOR HELPER Consulting Providers: Jeri Burns; Ken [...] 0RF Referrals / Follow Up: Candy Woodson FRAMING MILL OPERATOR HELPER, FRAMING MILL OPERATOR HELPER-C [Primary Care Provider] - Disposition Disposition (needs filled in before D/C Order can be placed): NonSkilled NH/Intermed Care 06/14/23 1011 <Electronically signed by Adán Khalil MD> Cosigner Signature (if applicable): CC: SCOOTER Woodson; Dr. Ken Lopez, DO; Dr. Jeri Burns MD ~ [facility] Work Phone: Evaluation + Plan note Future Appointments Appointment Date:05/11/2021 09:00:00 AM Scheduled Provider:CANDY WOODSON APRN, CNP Location:[facility] Appointment Type:PC OV Follow Up [facility] + Plan note Future Appointments Appointment Date:05/12/2022 10:20:00 AM Scheduled Provider:CANDY WOODSON APRN - [facility] Location:[facility] [place] Appointment Type:PC OV Follow Up Future Scheduled Tests Laboratory* Microalbumin Level Urine 02/09/22 [facility] Evaluation + Plan note Future Appointments Appointment Date:11/10/2022 10:20:00 AM Scheduled Provider:CANDY WOODSON APRN - [place] Location:[facility] [place] Appointment Type:PC OV Follow Up Future Scheduled Tests Laboratory* Lipid Profile 11/10/22 * Microalbumin Level Urine 02/09/22 * Microalbumin Level Urine 11/10/22 * Vitamin D Level 11/10/22 * Complete Metabolic Panel 11/10/22 [facility] + Plan note Future Appointments Appointment Date:05/09/2023 09:40:00 AM Scheduled Provider:CANDY WOODSON APRN - 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 Location:[facility] Appointment Type:PC OV Follow Up Future Scheduled Tests Laboratory* Complete Blood Count 05/24/23 * Lipid Profile 05/24/23 * Albumin/Creatinine Ratio, Random Urine 05/24/23 * Vitamin D Level 05/24/23 * Complete Metabolic Panel 05/24/23 [facility] + Plan note Future Appointments Appointment Date:10/12/2023 09:00:00 AM Scheduled Provider:CANDY WOODSON APRN - 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 Location:[facility] Appointment Type:PC OV Follow Up Future Scheduled Tests Laboratory* Complete Blood Count 05/24/23 * Lipid Profile 05/24/23 * Albumin/Creatinine Ratio, Random Urine 10/28/23 * Albumin/Creatinine Ratio, Random Urine 05/24/23 * Vitamin D Level 05/24/23 * Complete Metabolic Panel 05/24/23 [facility] Evaluation + Plan note Future Appointments Appointment Date:04/16/2024 10:30:00 AM Scheduled Provider: Location:[facility] Appointment Type:PT [facility] Appointment Date:04/18/2024 10:00:00 AM Scheduled Provider: Location:[facility] Appointment Type:PT [facility] Appointment Date:04/23/2024 10:30:00 AM Scheduled Provider: Location:[facility] Appointment Type:PT [facility] Appointment Date:04/23/2024 01:40:00 PM Scheduled Provider:CANDY WOODSON APRN, CNP Location:[facility] [place] Appointment Type:PC OV Follow Up Appointment Date:04/25/2024 11:00:00 AM Scheduled Provider: Location:[facility] Appointment Type:PT [facility] Appointment Date:04/30/2024 10:30:00 AM Scheduled Provider: Location:[facility] Appointment Type:PT [facility] Appointment Date:05/07/2024 10:30:00 AM Scheduled Provider: Location:[facility] Appointment Type:PT [facility] Appointment Date:05/09/2024 10:30:00 AM Scheduled Provider: Location:[facility] Appointment Type:[facility] Appointment Date:05/14/2024 10:30:00 AM Scheduled Provider: Location:[facility] Appointment Type:PT [facility] Future Scheduled Tests Laboratory* Lipid Profile 05/24/23 * Albumin/Creatinine Ratio, Random Urine 10/28/23 * Albumin/Creatinine Ratio, Random Urine 05/24/23 * Vitamin D Level 05/24/23 * Complete Metabolic Panel 05/24/23 Radiology* MA Mammo Diagnostic Right w/ Trav 05/04/24 * MA Mammo Diagnostic Right w/ Trav 10/13/23 * US Breast Right Complete 05/04/24 [facility] Evaluation + Plan note Future Appointments Appointment Date:04/23/2024 10:30:00 AM Scheduled Provider: Location:[facility] Appointment Type:[facility] Appointment Date:04/23/2024 01:40:00 PM Scheduled Provider:CANDY WOODSON APRN, CNP Location:[facility] Appointment Type:PC OV Follow Up Appointment Date:04/25/2024 11:00:00 AM Scheduled Provider: Location:[facility] Appointment Type:PT Treatment - [place] Appointment Date:04/30/2024 10:30:00 AM Scheduled Provider: Location:[facility] Appointment Type:[facility] Appointment Date:05/07/2024 10:30:00 AM Scheduled Provider: Location:[facility] Appointment Type:[facility] Appointment Date:05/09/2024 10:30:00 AM Scheduled Provider: Location:[facility] Appointment Type:[facility] Appointment Date:05/10/2024 11:00:00 AM Scheduled Provider:MAURIZIO PENA MD Location:[facility] [address] [facility] Appointment Type:PM OV Appointment Date:05/14/2024 10:30:00 AM Scheduled Provider: Location:[facility] Appointment Type:[facility] Future Scheduled Tests Laboratory* Lipid Profile 05/24/23 * Albumin/Creatinine Ratio, Random Urine 10/28/23 * Albumin/Creatinine Ratio, Random Urine 05/24/23 * Vitamin D Level 05/24/23 * Complete Metabolic Panel 05/24/23 Radiology* MA Mammo Diagnostic Right w/ Trav 05/04/24 * [place] Mammo Diagnostic Right w/ Trav 10/13/23 * US Breast Right Complete 05/04/24 [facility] Evaluation + Plan note Future Appointments Appointment Date:05/24/2024 10:45:00 AM Scheduled Provider: Location:[facility] Appointment Type:PM Major Joint Bursa Inj/Aspiration (AOH Appointment Date:05/27/2024 10:30:00 AM Scheduled Provider:[place] [id number] Location:[facility] Appointment Type:[facility] Appointment Date:05/30/2024 09:00:00 AM Scheduled Provider: Location:[facility] Appointment Type:[place] Mammogram Diagnostic Right w/ Trav Appointment Date:05/30/2024 10:00:00 AM Scheduled Provider: Location:[facility] Appointment Type:US Breast Right Complete Appointment Date:06/11/2024 01:00:00 PM Scheduled Provider:CANDY WOODSON APRN - GRATED 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 Location:[facility] Appointment Type:PC OV Future Scheduled Tests [...] 10/13/23 * US Breast Right Complete 05/30/24 [facility] Evaluation + Plan note Future Appointments Appointment Date:05/27/2024 10:30:00 AM Scheduled Provider:[place] [id number] Location:[facility] Appointment Type:[facility] Appointment Date:05/30/2024 09:00:00 AM Scheduled Provider: Location:[facility] Appointment Type:[place] Mammogram Diagnostic Right w/ Trav Appointment Date:05/30/2024 10:00:00 AM Scheduled Provider: Location:[facility] Appointment Type:US Breast Right Complete Appointment Date:06/11/2024 01:00:00 PM Scheduled Provider:CANDY WOODSON APRN - [employer]ATED 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 Location:[facility] Appointment Type:PC OV Future Scheduled Tests [...] 10/13/23 * US Breast Right Complete 05/30/24 [facility] Evaluation + Plan note Future Appointments Appointment Date:06/11/2024 01:00:00 PM Scheduled Provider:CANDY WOODSON SHUTTLE PREPARATION SUPERVISOR - 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 Location:[facility] Appointment Type:PC OV Future Scheduled [...] MA Mammo Diagnostic Right w/ Trav 10/13/23 [facility] Evaluation + Plan note Future Appointments Appointment Date:06/18/2024 10:00:00 AM Scheduled Provider:[place] [id number] Location:[facility] Appointment Type:PT Outpatient Evaluation Appointment Date:12/10/2024 01:00:00 PM Scheduled Provider:CANDY WOODSON APRN, CNP Location:[facility] Appointment Type:PC OV Future Scheduled Tests Laboratory* Lipid Profile 10/28/24 * Albumin/Creatinine Ratio, Random Urine 10/28/24 * Vitamin D Level 10/28/24 * Complete Metabolic Panel 10/28/24 Radiology* MA Mammo Diagnostic Right w/ Trav 12/09/24 * MA Mammo Diagnostic Right w/ Trav 10/13/23 * US Breast Right Complete 12/09/24 * US Breast Right Complete 06/06/24 [facility] + Plan note Future Appointments Appointment Date:12/10/2024 01:00:00 PM Scheduled Provider:CANDY WOODSON APRN, CNP Location:[facility] Appointment Type:PC OV Future Scheduled Tests Laboratory* Albumin/Creatinine Ratio, Random Urine 10/28/24 Radiology* MA Mammo Diagnostic Right w/ Trav 12/09/24 * US Breast Right Complete 12/09/24 * US Breast Right Complete 06/06/24 [facility] + Plan note Future Appointments Appointment Date:06/10/2025 08:45:00 AM Scheduled Provider: Location:[facility] Appointment Type:PC Nurse Lab Appointment Date:06/17/2025 01:00:00 PM Scheduled Provider:CANDY WOODSON APRN, CNP Location:[facility] Appointment Type:PC OV Future Scheduled Tests Laboratory* Lipid Profile 06/12/25 * Albumin/Creatinine Ratio, Random Urine 10/28/24 * Albumin/Creatinine Ratio, Random Urine 06/12/25 * Vitamin D Level 06/12/25 * Complete Metabolic Panel 06/12/25 Radiology* US Breast Right Complete 06/06/24 [facility] Evaluation + Plan note Future Appointments Appointment Date:06/10/2025 08:45:00 AM Scheduled Provider: Location:[facility] Appointment Type:PC Nurse Lab Appointment Date:06/17/2025 [...] 06/29/25 * US Breast Right Complete 06/06/24 [facility] Evaluation note* Diagnosis Onset Date Resolution Status Acute blood loss anemia acut e Debility acute Hx of decompressive lumbar laminectomy acute Radicular pain of both lower extremities chronic Acute blood loss anemia acut e Debility acute Hx of decompressive lumbar laminectomy acute Radicular pain of both lower extremities chronic [facility] Work Phone: Evaluation note* Diagnosis Onset [...] acute Hx of decompressive lumbar laminectomy acute [facility] Work Phone: Evaluation note* Diagnosis Onset [...] resolved Hx of decompressive lumbar laminectomy acute [facility] Work Phone: Evaluation noteNo assessment information available [facility] Work Phone: Hospital course Narrative No data available for this section [facility] Hospital Discharge instructions No data available for this section [facility] Progress note No data available for this section [facility] Reason for referral (narrative)No reason for [facility] Summary Purpose Family History No Family History Records Found Relationship Condition Age at Onset Recorded Date/T sarah father Heart failure Unknown Relationship Condition Age at Onset Recorded Date/T sarah father Heart failure Unknown mother Kidney disorder Unknown Alzheimer's disease Unknown Advance Directives No Advanced Directives Records Found Advance Directive Response Recorded Date/ Time Name of Medical Power of Tapering Machine Operator Alysia Moctezuma May 16, 2023 11:54am Name of Medical Power of Tapering Machine Operator MARIBEL Snider, in safe at home May 30, 2023 1:53pm Living Will Yes May 30 023 1:53pm Power of Tapering Machine Operator Yes May 30, 2023 1:53pm Advance Directive Response Recorded Date/ Time Name of Medical Power of Tapering Machine Operator Alysia Moctezuma May 16, 2023 11:54am Name of Medical Power of Tapering Machine Operator BEAU LEACH June 12, 2023 12:38pm Living Will Yes June 12 12:38pm Power of Tapering Machine Operator Yes June 12 024 12:38pm Name of Medical Power of Tapering Machine Operator MARIBEL Snider, in safe at home May 30, 2023 1:53pm Advance Directive Response Recorded Date/ Time Name of Medical Power of Tapering Machine Operator Alysia Moctezuma May 16, 2023 11:54am Name of Medical Power of Tapering Machine Operator baeu leach June 12, 2023 9:16pm Living Will Yes June 12 9:16pm Power of Tapering Machine Operator Yes June 12 9:16pm Name of Medical Power of Tapering Machine Operator MARIBEL Snider, in safe at home May [...] DIARRHEA ADULT FTT, DIARRHEA ADULT FTT, DIARRHEA [facility] WORK Reason for Visit Acute blood [...] DIARRHEA ADULT FTT, DIARRHEA ADULT FTT, DIARRHEA [facility] WORK [facility] Reason for Visit Acute blood [...] section and content) DATE CREATED AUTHOR 11/29/2017 [facility] DATE CREATED AUTHOR AUTHOR'S ORGANIZ ATION 10/07/2023 [facility] ([place]) DATE CREATED AUTHOR AUTHOR'S ORGANIZ ATION 07/20/2024 [facility] DATE CREATED AUTHOR AUTHOR'S ORGANIZ ATION 08/29/2024 [facility] DATE CREATED AUTHOR AUTHOR'S ORGANIZ ATION 04/13/2025 [facility] Care Team (unrecognized sect ion and content) Care Team Personnel Name: CANDY WOODSON APRN 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 Position: P4 Advanced Practice Nurse Member Role: Primary Care Physician Address: Address: [address] [place] [address] Care Team Related Persons Name: BEAU LEACH Care Team Personnel Name: CANDY WOODSON APRN [employer]ATED 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 Position: P4 Advanced Practice Nurse Member Role: Primary Care Physician Address: Address: [address] [place] [address] Care Team Related Persons Name: BEAU LEACH Patient Care team informatio n (unrecognized section and content) Team Status: Active Member Role Status Dates Dr. Kwan Rivera MD Family Provider Active Candy Woodson FRAMING MILL OPERATOR HELPER, FRAMING MILL OPERATOR HELPER-C Primary Care Provider Active Team Status: Active Member Role Status Dates Candy Woodson FRAMING MILL OPERATOR HELPER, FRAMING MILL OPERATOR HELPER-C Primary Care Provider Active Dr. Mavis Vásquez , Admit Provider, Other Provider Ac tive Dr. Evonne Bishop MD Attending Provider Active Team Status: Active Member Role Status Dates Candy Woodson FRAMING MILL OPERATOR HELPER, FRAMING MILL OPERATOR HELPER-C Primary Care Provider Active Dr. Mavis Vásquez , DO Admit Provider Active Dr. Evonne Bishop MD Attending Provider, Other Prov ider Active Dr. Kwan Lai MD Other Provider Active Team Status: Active Member Role Status Dates Candy Woodson FRAMING MILL OPERATOR HELPER, FRAMING MILL OPERATOR HELPER-C Primary Care Provider Active Dr. Mavis Vásquez , DO Admit Provider Active Dr. Kwan Lai MD Other Provider Active Dr. Ava Castle , DO Attending Provider, Ot her Provider Active Team Status: Active Member Role Status Dates Candy Woodson FRAMING MILL OPERATOR HELPER, FRAMING MILL OPERATOR HELPER-C Primary Care Provider Active Dr. Larry Kent MD Admit Provider, Other Provider A ctive Dr. Ava Castle , DO Attending Provider Act francisca Team Status: Inactive Member Role Status Dates Candy Woodson FRAMING MILL OPERATOR HELPER, FRAMING MILL OPERATOR HELPER-C Primary Care Provider Active Dr. Mavis Vásquez , DO Admit Provider Active Dr. Kwan Lai MD Other Provider Active Dr. Ava Castle , DO Attending Provider Act francisca Team Status: Inactive Member Role Status Dates Candy Woodson FRAMING MILL OPERATOR HELPER, FRAMING MILL OPERATOR HELPER-C Primary Care Provider Active Dr. Larry Kent MD Admit Provider, Attending Provid er Active Team Status: Active Member Role Status Dates Candy Woodson FRAMING MILL OPERATOR HELPER, FRAMING MILL OPERATOR HELPER-C Primary Care Provider Active Dr. Ash Geller , DO Emergency Provider Active Dr. Jeri Burns MD Attending Provider Active Team Status: Active Member Role Status Dates Candy Woodson FRAMING MILL OPERATOR HELPER, FRAMING MILL OPERATOR HELPER-C Primary Care Provider Active Dr. Ash Geller , DO Emergency Provider Active Dr. Jeri Burns MD Admit Provider, Attending Prov ider Active Team Status: Active Member Role Status Dates Candy Woodson FRAMING MILL OPERATOR HELPER, FRAMING MILL OPERATOR HELPER-C Primary Care Provider Active Dr. Ash Geller , DO Emergency Provider Active Dr. Jeri Burns MD Admit Provider, Other Provider Active Dr. Adán Khalil MD Attending Provider, Other Provi melissa Active Dr. Ken Lopez , DO Other Provider Active Team Status: Inactive Member Role Status Dates Candy Woodson FRAMING MILL OPERATOR HELPER, FRAMING MILL OPERATOR HELPER-C Primary Care Provider Active Dr. Ash Geller , DO Emergency Provider Active Dr. Jeri Burns MD Admit Provider, Other Provider Active Dr. Adán Khalil MD Attending Provider Active Dr. Ken Lopez DO Other Provider Active Team Status: Inactive Member Role Status Dates Candy Woodson FRAMING MILL OPERATOR HELPER, FRAMING MILL OPERATOR HELPER-C Primary Care Provider Active Jessica AVILES MD Attending Provider Active Team Status: Active Member Role Status Dates Candy Woodson FRAMING MILL OPERATOR HELPER, FRAMING MILL OPERATOR HELPER-C Primary Care Provider Active Jessica AVILES MD Attending Provider Active Team Status: Active Member Role Status Dates Candy Woodson FRAMING MILL OPERATOR HELPER, FRAMING MILL OPERATOR HELPER-C Primary Care Provider Active Team Status: Inactive Member Role Status Dates Candy Woodson FRAMING MILL OPERATOR HELPER, FRAMING MILL OPERATOR HELPER-C Primary Care Provider Active Start: [...] BE BASED ON THE PRIMARY CLINICAL RECORDS. [employer] provides no warranty or guarantee of the accuracy or completeness of information in this document.
== END | disposition home or self-care (01) ==
LOC: RAD 11:01
PROVIDERS: PCP Nurse Practitioner Family; Referring Provider Nurse Practitioner Family; Visit Provider Nurse Practitioner Family
DX: I10 Essential (primary) hypertension (principal); I25.5 Ischemic cardiomyopathy; E78.5 Hyperlipidemia, unspecified; Z95.5 Presence of coronary angioplasty implant and graft
CPT/HCPCS: 36415; 71046; 80048; 85025

== ENCOUNTER → 2025-05-23 | Outpatient (CLI) | payer MEDICARE, OTHER, SELFPAY ==
[2025-05-23 13:42] LABS: Anion Gap 10 (5-15); BUN 18 mg/dL (4-19); BUN/Creat Ratio 16.7 RATIO (10-20); Calcium,Total 9.4 mg/dL (7.6-11.0); Carbon Dioxide 25.1 mmol/L (21.0-32.0); Chloride 106 mmol/L (98-108); Glucose 98 mg/dL (70-99); Potassium 4.0 mmol/L (3.3-5.1)
== END | disposition home or self-care (01) ==
LOC: LAB 12:28
PROVIDERS: PCP Nurse Practitioner Family; Referring Provider Nurse Practitioner Family; Visit Provider Nurse Practitioner Family
DX: E87.5 Hyperkalemia (principal)
CPT/HCPCS: 36415; 80048

== ENCOUNTER 2025-05-27 18:38 | Emergency (ER) | payer MEDICARE, OTHER, SELFPAY ==
[2025-05-27 18:39] VITALS: BP 164/96; PULSE 77; RESP 14; TEMP 37.5; O2SAT 99; BMI 28.4
[2025-05-27] MEDS: Mixture 30 ML Bottle TOPICAL (18:56)
--- NOTE | 2025-05-27 18:59 | EX.ED.DYSGE1 ---
HPI History of Present Illness Chief Complaint: Nosebleed Detail of Chief Complaint: Nosebleed Informant: patient Narrative Narrative: Patient presents to the emergency department with a nosebleed that started around 5:20 PM. Patient states she went to blow her nose and started bleeding from the left side of the nose. Patient tells me she is on Brilinta and aspirin for a cardiac stent she had placed in April. Typically does not get a lot of nosebleeds. Patient tried pinching her nose and tilting her head back without resolution. [facility] Medical History (Updated 05/27/25 @ 19:[address] Luis Watters, DO) Ischemic cardiomyopathy Dyslipidemia Hypertension Coronary artery disease COVID Migraine Basal cell carcinoma IBS (irritable bowel syndrome) Smokes cigarettes Vitamin D deficiency Anxiety Mixed hyperlipidemia Essential hypertension Chronic back pain Scoliosis Endometriosis Smoker GERD (gastroesophageal reflux disease) Home Medications ?Medication ?Instructions ?Recorded ?Last Taken ?Type ergocalciferol (vitamin D2) 1,250 50,000 unit PO QMONTH SUPPLEMENT 05/15/23 05/09/23 History mcg (50,000 unit) capsule venlafaxine 75 mg capsule,extended 75 mg PO DAILY DEPRESSION 05/15/23 Unknown History release 24 hr (Effexor XR) dorzolamide 22.3 mg-timolol 6.8 1 drp ophthalmic (eye) BID eye 04/22/25 Unknown History mg/mL eye drops health vitamins A,C,O-[id number]-duwjpp 2,148 2 tab PO BID supplement 04/22/25 Unknown History mcg-113 mg-45 mg-17.4 mg tablet (Eye Multivitamin) aspirin 81 mg tablet,delayed 81 mg PO BREAKFAST #0 tabs 04/24/25 Unknown Rx release atorvastatin 80 mg tablet 80 mg PO QHS #90 tabs 05/19/25 Unknown Rx carvedilol 3.125 mg tablet 3.125 mg PO BID #180 tabs 05/19/25 Unknown Rx empagliflozin 10 mg tablet 10 mg PO DAILY #90 tabs 05/19/25 Unknown Rx (Jardiance) lisinopril 2.5 mg tablet 2.5 mg PO DAILY #90 tabs 05/19/25 Unknown Rx ticagrelor 90 mg tablet 90 mg PO BID #180 tabs 05/19/25 Unknown Rx sodium polystyrene sulfonate 15 60 ml PO DAILY Pt has hyperkalemia 05/21/25 Unknown Rx gram-sorbitol 20 gram/60 mL oral K+ 6.2 #120 mL susp Allergy/AdvReac Type Severity Reaction Status Date / Time No Known Allergies Allergy Verified 05/27/25 18:44 Family History Father Heart failure Mother Kidney disease Alzheimer disease Family History unable to obtain Surgical History Stented coronary artery (04/22/25) History of hemilaminectomy Cataract extraction status S/P ORIF (open reduction internal fixation) fracture History of tonsillectomy History of appendectomy Social History household members: none current occupational status: retired current occupation: Worked at [employer] pets and animals: Yes pets and animals: cat(s) and dog(s) Smoking Status: Current some day smoker tobacco type: cigarettes quit status: considering quitting alcohol intake: current alcohol intake frequency: 0-2 drinks per day Alcohol type: beer substance use type: does not use do you feel safe at home: Yes ROS ROS ED Review of Systems ROS Unobtainable: other Constitutional Constitutional ED: Reports lethargy; Denies chills, fever(s), sweats or weight loss Eyes Eyes: Denies blurry vision, change in vision or diplopia ENT ENT ED: Reports other Details: Left-sided nosebleed ; Denies rhinorrhea or sore throat Cardiovascular Cardiovascular: Denies chest pain, orthopnea or racing heartbeat Respiratory/Chest Respiratory/Chest: Denies cough, dyspnea, dyspnea on exertion, orthopnea or sputum Gastrointestinal Gastrointestinal: Denies abdominal pain, diarrhea, nausea or vomiting Genitourinary Genitourinary ED: Denies dysuria, hematuria or urinary frequency Musculoskeletal Musculoskeletal: Denies arthralgias, back pain, myalgias or neck pain Integumentary Denies abscess, Abrasions or rash Neurologic Neurologic: Denies headache(s) or weakness Psychiatric Psychiatric: Denies anxiety, depression or suicidal thoughts Endocrine Endocrinology: Denies polydipsia, polyphagia or polyuria Hematologic/Lymphatic Hematologic/Lymphatic: Denies easy bleeding, easy bruising or lymphadenopathy Allergic/Immunologic Allergic/Immunologic ED: Denies mouth swelling, tongue swelling or urticaria EXAM Physical Exam Const Vital Signs: 05/27/25 18:39 Temperature 99.5 F H Temperature Source Oral Pulse Rate 77 Respiratory Rate 14 Blood Pressure 164/96 H Blood Pressure Mean 118 Pulse Ox 99 Oxygen Delivery Method Room Air Positive well nourished and well developed General Appearance ED: well developed and NAD HEENT Reports TM's clear and moist mucous membranes HEENT Narrative: Patient had a small amount of clot in the left nasal vault. There was an area that I suspect may be the source of the bleed on the anterior septum but difficult to say initially. Minimal blood down the oropharynx. No evidence of bleeding from the right side of the nose. normocephalic and atraumatic; Negative for trauma or tenderness Tympanic Membrane ED: Yes TM's clear Eyes PERRL and EOMs intact bilaterally General Eye ED: Negative for pale conjunctiva or scleral icterus Neck no lymphadenopathy, supple and no JVD General: Negative for tenderness Chest Wall inspection of chest normal and palpation of chest normal Chest: Negative for tenderness Resp normal respiratory effort and clear to auscultation bilaterally Effort and Inspection: Negative for respiratory distress or pain with movement Auscultation: Negative for rhonchi, wheezes or diminished lung sounds Cardio regular rate, regular rhythm, S1 normal heart sound, S2 normal heart sound and no murmurs Peripheral Pulses: pulses 2+ throughout GI normal to inspection, nondistended, normoactive bowel sounds, soft to palpation, non-tender, non-distended and no masses Back/Spine no CVA tenderness and no thoracic nor lumbar tenderness Extremity normal to inspection General Extremety ED: Negative for edema General Extremity: Negative for edema Neuro oriented x3, CN's II-XII intact bilaterally, no sensory deficits noted and gait normal Sensorium / Orientation: awake, alert, oriented to person, oriented to place and oriented to time Motor Exam: strength 5/5 throughout and strength abnormal Psych mental status grossly normal Skin no rashes or lesions noted and no wounds MDM MDM MDM Narrative Medical decision making narrative: Patient presents with nosebleed from the left side of the nose. I used a cotton ball dipped in Michel solution that I placed in her left nasal vault and will have the patient hold pressure for 20 minutes and will reevaluate. Patient had the cotton pledget removed from the nose and she had no further bleeding. On the mid anterior septum there appears to be a small defect I suspect may be the source of the bleeding. There is no active bleeding currently. She was able to ambulate and she had no further bleeding. Patient on Brilinta and will have to remain on it as she is only had recent stent less than 2 months ago. Advised that if the bleeding should recur to hold constant pressure for 20 minutes and if it does not stop to return to the emergency department. Patient will be referred to ENT for follow-up. Discharge Plan Triage Chief Complaint: Nosebleed ED Provider: Luis Watters Dx/Rx/DC Orders Clinical Impression: Epistaxis Instructions: ED Epistaxis (Adult) Prescriptions: No Action atorvastatin 80 mg tablet 80 mg PO QHS Qty: 90 3RF carvedilol 3.125 mg tablet 3.125 mg PO BID Qty: 180 3RF Jardiance 10 mg tablet 10 mg PO DAILY Qty: 90 3RF lisinopril 2.5 mg tablet 2.5 mg PO DAILY Qty: 90 3RF ticagrelor 90 mg tablet 90 mg PO BID Qty: 180 3RF ergocalciferol (vitamin D2) 1,250 mcg (50,000 unit) capsule 50,000 unit PO QMONTH venlafaxine [Effexor XR] 75 mg capsule,extended release 24hr 75 mg PO DAILY dorzolamide-timolol 22.3-6.8 mg/mL drops 1 drp ophthalmic (eye) BID Eye Multivitamin 2,148 mcg-113 mg-45 mg-17.4mg tablet 2 tab PO BID Rx Instructions: administer with AM and PM meals aspirin 81 mg Tablet,Delayed Release (Dr/Ec) 81 mg PO BREAKFAST Qty: 0 0RF sodium polystyrene sulf-sorbtl 15-20 gram/60 mL suspension 60 ml PO DAILY Qty: 120 1RF Primary Care Provider: Donte Woodson NP Referrals: Nas Jurado MD [Med Staff - Active Staff, Ear Nose Throat (ENT)] - 3-5 Days Donte Woodson [employer], [employer] [Primary Care Provider, Family Practice] Print Language: Ukrainian Disposition Disposition: Home, Self Care
--- OUTSIDE RECORDS SUMMARY | 2025-05-27 19:14 | XMS RPT_ITS | CCD ---
Author Organization [facility] Care Team Providers [facility] Pricing Consultant Name Role Phone REFERRING, MONTSE WO ID Unavailable Unavailable CHINTAN, CANDY Unavailable Unavailable CHINTAN, CANDY Unavailable Unavailable CHINTAN CHACKO - WALDO, CANDY Radford Primary Care Phys ician Chintan VEHICLE CALIBRATION ENGINEER, VEHICLE CALIBRATION ENGINEER-C Candy Schwarz Primary Care Pr ovider Dr. Mavis Vásquez Admit Provider Dr. Mavis Vásquez Other Provider Dr. Evonne Bishop Attending Provider [phone] Evonne Bishop Other Provider Dr. Kwan [...] Provider Dr. Ken Lopez Other Provider [phone] FAHAD MENDEZ, DR WEBBER Attending Unavailabl e CHINTAN MANAGER RESPIRATORY CARE - CANDY HAAS Primary Care U navailable CHINTAN MANAGER RESPIRATORY CARE - INFORMATICS SCIENTIST, CANDY Radford Attending U navailable HCINTAN MANAGER RESPIRATORY CARE - INFORMATICS SCIENTIST, CANDY Radford Primary Care U navailable CHINTAN MANAGER RESPIRATORY CARE - INFORMATICS SCIENTIST, CANDY Radford Attending U navailable CHINTAN MANAGER RESPIRATORY CARE - INFORMATICS SCIENTIST, CANDY Radford Primary Care U navailable CHINTAN MANAGER RESPIRATORY CARE - INFORMATICS SCIENTIST, CANDY Radford Attending U navailable CHINTAN MANAGER RESPIRATORY CARE - INFORMATICS SCIENTIST, CANDY Radford Primary Care U navailable CHINTAN MANAGER RESPIRATORY CARE - INFORMATICS SCIENTIST, CANDY Radford Attending U navailable CHINTAN MANAGER RESPIRATORY CARE - INFORMATICS SCIENTIST, CANDY Radford Primary Care U navailable HELIO CASTILLO Attending Unavailab le CHINTAN MANAGER RESPIRATORY CARE - INFORMATICS SCIENTIST, CANDY Radford Primary Care U navailable CHINTAN MANAGER RESPIRATORY CARE - INFORMATICS SCIENTIST, CANDY Radford Primary Care U navailable HELIO CASTILLO Attending Unavailab le Chintan VEHICLE CALIBRATION ENGINEER, Candy Schwarz Primary Care Unav ailYaniv Escobar Consulting Unavailable Danielle Castillo Referring Unavailable Jonathan, Danielle Perkins Attending Unavailable [place] VEHICLE CALIBRATION ENGINEER, Candy Schwarz Primary Care Unav ailable Sementi, Ava Knox Referring Unavaila ble Sementi, Ava Knox Attending Unavaila ble Chintan VEHICLE CALIBRATION ENGINEER, Candy Schwarz Primary Care Unav ailable Chintan VEHICLE CALIBRATION ENGINEER, Candy Schwarz Referring Unav ailable [place] VEHICLE CALIBRATION ENGINEER, Candy Schwarz Attending Unav ailable Chintan VEHICLE CALIBRATION ENGINEER-C, Candy Schwarz Primary Care Provi melissa Danielle Castillo PA-C Attending Provider Danielle Castillo PA-C Referring Provider Gisselle MENDEZ, Dr. Purvis Other Provider Unava ilable CHINTAN MANAGER RESPIRATORY CARE - WALDO, CANDY Radford Attending U navailable CHINTAN MANAGER RESPIRATORY CARE - INFORMATICS SCIENTIST, CANDY Radford Primary Care U leonid PENA MD, MAURIZIO Mcallister Attending Unavailable CHINTAN MANAGER RESPIRATORY CARE - INFORMATICS SCIENTIST, CANDY Radford Primary Care U navailable CHINTAN MANAGER RESPIRATORY CARE - INFORMATICS SCIENTIST, CANDY Radford Primary Care U leonid PENA MD, MAURIZIO Mcallister Attending Unavailable CHINTAN MANAGER RESPIRATORY CARE - INFORMATICS SCIENTIST, CANDY Radford Primary Care U navailable CHINTAN MANAGER RESPIRATORY CARE - INFORMATICS SCIENTIST, CANDY Radford Attending U MAURIZIO Camilo MD Attending Unavailable CHINTAN MANAGER RESPIRATORY CARE - INFORMATICS SCIENTIST, CANDY Radford [facility] CHINTAN MANAGER RESPIRATORY CARE - INFORMATICS SCIENTIST, CANDY Radford Attending [facility] CHINTAN MANAGER RESPIRATORY CARE - INFORMATICS SCIENTIST, CANDY Radford Primary Care U navailable CHINTAN MANAGER RESPIRATORY CARE - INFORMATICS SCIENTIST, CANDY Radford Attending [facility] CHINTAN MANAGER RESPIRATORY CARE - INFORMATICS SCIENTIST, CANDY Radford Primary [facility] CHINTAN MANAGER RESPIRATORY CARE - INFORMATICS SCIENTIST, CANDY Radford Attending [facility] CHINTAN MANAGER RESPIRATORY CARE - INFORMATICS SCIENTIST, CANDY Radford Primary Care [facility] CHINTAN MANAGER RESPIRATORY CARE - INFORMATICS SCIENTIST, CANDY Radford Attending [facility] CHINTAN MANAGER RESPIRATORY CARE - INFORMATICS SCIENTIST, CANDY Radford Primary [facility] CHINTAN MANAGER RESPIRATORY CARE - INFORMATICS SCIENTIST, CANDY Radford Primary Care [facility] CHINTAN MANAGER RESPIRATORY CARE - INFORMATICS SCIENTIST, CANDY Radford Attending U leonid Unavailable Unavailable Unavailable Allergies Allergy Classification Reported Allergen(s) Allergy Type Date of Onset Reaction(s) Facility (14 sources) Azithromycin; Translations: [azithromycin] Drug Allergy Headache (finding), Dizziness (finding) [facility] (14 sources) Cephalexin; Translations: [cephalexin] Drug Allergy Diarrhea (finding) [facility] (8 sources) gabapentin; Translations: [gabapentin] Drug Allergy Nausea (finding) [facility] PM Medications Current Medications Medication Drug Class(es) Dates Sig (Normalized) Sig (Original) atorvastatin 40 mg oral tablet (16 sources) HMG-CoA Reductase Inhibitor Start: 12-10-2024 atorvastatin 40 mg oral tablet Dose : 40 mg = 1 tab(s), Oral, qDay, # 90 tab(s), 1 Refill(s), Pharmacy: [facility], Hyperlipidemia LDL goal Start Date: 12/10/24 Status: Ordered Medication Dispense Status: Completed Quantity: 90.0 Unit: tab(s) Total Allowed Fills: 2 Fills Dispensed: 0 Indications: Pure hyperglyceridemia; Hyperlipidemia, unspecified; Start: 05-05-2023 atorvastatin 4 0 mg oral tablet Dose : 40 mg = 1 tab(s), Oral, qDay, # 90 tab(s), 1 Refill(s), Pharmacy: [facility], Hyperlipidemia LDL goal Start Date: 04/30/24 Status: Ordered Quantity: 90.0 Unit: tab(s) Repeat number: 2 Indications: Pure hyperglyceridemia; Hyperlipidemia, unspecified; Start: 11-22-2022 atorvastatin 4 0 mg oral tablet Dose : 40 mg = 1 tab(s), Oral, qDay, # 90 tab(s), 1 Refill(s), Pharmacy: [facility], Hyperlipidemia LDL goal Start Date: 11/22/22 Status: Ordered Start: 05-12-2022 atorvastatin 4 0 mg oral tablet Dose : 40 mg = 1 tab(s), Oral, qDay, # 90 tab(s), 1 Refill(s), Pharmacy: [facility], Hyperlipidemia LDL goal Start Date: 05/12/22 Status: Ordered Start: 11-09-2021 End: 05-08-2022 atorvastatin 20 mg oral tabl et Dose : 20 mg = 1 tab(s), Oral, qDay, # 90 tab(s), 1 Refill(s), Pharmacy: [facility], Hyperlipidemia LDL goal Start Date: 11/09/21 Stop Date: 05/08/22 Status: Ordered Start: 10-20-2020 End: 07-17-2021 atorvastatin 20 mg oral tabl et Dose : 20 mg = 1 tab(s), Oral, qDay, # 90 tab(s), 2 Refill(s), Pharmacy: [facility], Hyperlipidemia LDL goal Start Date: 10/20/20 [...] Start: 04-23-2019 take 1 capsule by mo [facility] once daily calcium-vitamin D 600 mg-200 intl [...] qmonth, # 4 cap(s), 1 Refill(s), Pharmacy: [facility], Vitamin D deficiency, 172, cm, 12/10/24 [...] qmonth, # 4 cap(s), 1 Refill(s), Pharmacy: [facility], Vitamin D deficiency, 176, cm, 04/30/24 12:56:00 EST, Height, kg, 04/30/24 12:56:00 EST, Dosing Weight Start Date: 04/30/24 Stop Date: 10/27/24 Status: Ordered Quantity: 4.0 Unit: cap(s) Repeat number: 2 Indications: Vitamin D deficiency, unspecified; Start: 05-15-2023 Ergocalciferol (Vitamin D2) 1,250 mcg (50,000 unit) capsule Active 37453 U PO EVERY MONTH May 15, 2023 1:00am Start: 05-15-2023 take 99617 [IU] by m outh every month Ergocalciferol (Vitamin D2) Active 72177 UNIT PO EVERY MONTH May 15, 2023 12:00am Start: 05-05-2023 End: 04-09-2024 ergocalciferol 50,000 intl u nits (1.25 mg) oral capsule Dose : 50,000 International_Unit = 1 cap(s), Oral, qmonth, # 4 cap(s), 1 Refill(s), Pharmacy: [facility], Vitamin D deficiency, 176, cm, 10/12/23 8:49:00 EDT, Height, kg, 10/12/23 8:49:00 EDT, Dosing Weight Start Date: 10/12/23 Stop Date: 04/09/24 Status: Ordered Start: 11-22-2022 End: 05-21-2023 ergocalciferol 50,000 intl u nits (1.25 mg) oral capsule Dose : 50,000 International_Unit = 1 cap(s), Oral, qmonth, # 4 cap(s), 1 Refill(s), Pharmacy: [facility], Vitamin D deficiency, 173, cm, 11/22/22 10:23:00 EDT, Height, kg, 11/22/22 10:23:00 EDT, Dosing Weight Start Date: 11/22/22 Stop Date: 05/21/23 Status: Ordered Start: 05-12-2022 End: 11-08-2022 ergocalciferol 50,000 intl u nits (1.25 mg) oral capsule Dose : 50,000 International_Unit = 1 cap(s), Oral, qmonth, # 4 cap(s), 1 Refill(s), Pharmacy: [facility], Vitamin D deficiency, 173, cm, 05/12/22 10:31:00 EST, Height, kg, 05/12/22 10:31:00 EST, Dosing Weight Start Date: 05/12/22 Stop Date: 11/08/22 Status: Ordered Start: 11-09-2021 End: 05-08-2022 ergocalciferol 50,000 intl u nits (1.25 mg) oral capsule Dose : 50,000 International_Unit = 1 cap(s), Oral, qmonth, # 4 cap(s), 1 Refill(s), Pharmacy: [facility], Vitamin D deficiency, 175, cm, 11/09/21 9:03:00 EDT, Height, kg, 11/09/21 9:03:00 EDT, Dosing Weight Start Date: 11/09/21 Stop Date: 05/08/22 Status: Ordered Start: 10-20-2020 End: 07-17-2021 ergocalciferol 50,000 intl u nits (1.25 mg) oral capsule Dose : 50,000 International_Unit = 1 cap(s), Oral, qWeek, # 13 cap(s), 2 Refill(s), Pharmacy: [facility], Vitamin D deficiency, 175, cm, 10/20/20 10:15:00 EDT, Height, kg, 10/20/20 10:15:00 EDT, Dosing Weight Start Date: 10/20/20 Stop Date: 07/17/21 Status: Ordered gabapentin 100 mg oral capsule (20 sources) Anti-epileptic Agent Start: 03-19-2024 End: 05-18-2024 gabapentin 100 mg oral capsule Dose : 100 mg = 1 cap(s), Oral, TID, Fill Date: 03/19/2024, # 90 cap(s), 1 Refill(s), Pharmacy: [facility], Back pain with right-sided sciatica Spinal [...] qDay, # 90 tab(s), 1 Refill(s), Pharmacy: [facility], Uncontrolled hypertension, 172, cm, 12/10/24 12:59:00 [...] qDay, # 90 tab(s), 1 Refill(s), Pharmacy: [facility], Uncontrolled hypertension, 176, cm, 04/30/24 12:56:00 EST, Height, kg, 04/30/24 12:56:00 EST, Dosing Weight Start Date: 04/30/24 Status: Ordered Quantity: 90.0 Unit: tab(s) Repeat number: 2 Indications: Essential (primary) hypertension; Start: 10-12-2023 metoprolol suc cinate 25 mg oral TABLET extended release Dose : 25 mg = 1 tab(s), Oral, qDay, # 90 tab(s), 1 Refill(s), Pharmacy: [facility], Uncontrolled hypertension, 176, cm, 10/12/23 8:49:00 EDT, Height, kg, 10/12/23 8:49:00 EDT, Dosing Weight Start Date: 10/12/23 Status: Ordered Start: 05-05-2023 metoprolol suc cinate 25 mg oral TABLET extended release Dose : 25 mg = 1 tab(s), Oral, qDay, # 30 tab(s), 1 Refill(s), Pharmacy: [facility], Uncontrolled hypertension, 176, cm, 05/05/23 14:38:00 [...] Diovan, # 90 cap(s), 1 Refill(s), Pharmacy: [facility], HTN, goal below 140/90, 172, cm, [...] Diovan, # 90 cap(s), 1 Refill(s), Pharmacy: [facility], HTN, goal below 140/90, 176, cm, [...] 1 Refill(s), 06/01/24 11:35:00 AM EST, Pharmacy: [facility], Back pain with right-sided sciatica Spinal stenosis, 170, cm, 04/02/24 10:59:00 EDT, Height, 83.3, kg, 04/02/24 10:59:00 EDT, Dosing Weight Start Date: 04/02/24 Stop Date: 06/01/24 Status: Ordered valsartan 160 mg oral tablet (13 sources) Angiotensin 2 Receptor Sean Start: 10-12-2023 Diovan 160 mg oral tablet Dose : 160 mg = 1 tab(s), Oral, qDay, # 90 tab(s), 1 Refill(s), Pharmacy: [facility], HTN, goal below 140/90, 176, cm, [...] qDay, # 90 tab(s), 1 Refill(s), Pharmacy: [facility], HTN, goal below 140/90, 173, cm, 11/22/22 10:23:00 EDT, Height, kg, 11/22/22 10:23:00 EDT, Dosing Weight Start Date: 11/22/22 Status: Ordered Start: 05-12-2022 Diovan 160 mg oral tablet Dose : 160 mg = 1 tab(s), Oral, qDay, # 90 tab(s), 1 Refill(s), Pharmacy: [facility], HTN, goal below 140/90, 173, cm, 05/12/22 10:31:00 EST, Height Start Date: 05/12/22 Status: Ordered Start: 11-09-2021 End: 05-08-2022 Diovan 80 mg oral tablet Dos e : 80 mg = 1 tab(s), Oral, qDay, Discontinue the 40 mg Rx, # 90 tab(s), 1 Refill(s), Pharmacy: [facility], HTN, goal below 140/90, 175, cm, 11/09/21 9:03:00 EDT, Height, kg, 11/09/21 9:03:00 EDT, Dosing Weight Start Date: 11/09/21 Stop Date: 05/08/22 Status: Ordered Start: 10-20-2020 End: 07-17-2021 Diovan 80 mg oral tablet Dos e : 80 mg = 1 tab(s), Oral, qDay, Discontinue the 40 mg Rx, # 90 tab(s), 2 Refill(s), Pharmacy: [facility], HTN, goal below 140/90, 175, cm, [...] qDay, # 90 cap(s), 1 Refill(s), Pharmacy: [facility], JOSÉ MIGUEL (generalized anxiety disorder), 172, [...] qDay, # 90 cap(s), 1 Refill(s), Pharmacy: [facility], JOSÉ MIGUEL (generalized anxiety disorder), 176, [...] qDay, # 90 cap(s), 1 Refill(s), Pharmacy: [facility], JOSÉ MIGUEL (generalized anxiety disorder), 173, cm, 05/12/22 10:31:00 EST, Height, kg, 05/12/22 10:31:00 EST, Dosing Weight Start Date: 05/12/22 Stop Date: 11/08/22 Status: Ordered Start: 11-09-2021 End: 05-08-2022 venlafaxine 75 mg oral capsu le, extended release Dose : 75 mg = 1 cap(s), Oral, qDay, # 90 cap(s), 1 Refill(s), Pharmacy: [facility], JOSÉ MIGUEL (generalized anxiety disorder), 175, cm, 11/09/21 9:03:00 EDT, Height, kg, 11/09/21 9:03:00 EDT, Dosing Weight Start Date: 11/09/21 Stop Date: 05/08/22 Status: Ordered Start: 10-20-2020 End: 07-17-2021 venlafaxine 75 mg oral capsu le, extended release Dose : 75 mg = 1 cap(s), Oral, qDay, # 90 cap(s), 2 Refill(s), Pharmacy: [facility], JOSÉ MIGUEL (generalized anxiety disorder), 175, [...] Daily, # 120 mL, 1 Refill(s), Pharmacy: [facility], Pre-op evaluation, 176, cm, 05/05/23 14:38:00 [...] Ordered docusate sodium 50 mg / sennosides, fdc 8.6 mg oral tablet (16 sources) Start: [...] qDay, # 30 tab(s), 1 Refill(s), Pharmacy: [facility], Back pain with right-sided sciatica Spinal [...] qDay, # 30 tab(s), 1 Refill(s), Pharmacy: [facility], Back pain with right-sided sciatica Spinal stenosis, 170, cm, 04/02/24 10:59:00 EDT, Height, kg, 04/02/24 10:59:00 EDT, Dosing Weight Start Date: 04/02/24 Stop Date: 06/01/24 Status: Ordered Start: 05-12-2022 End: 11-08-2022 meloxicam 15 mg oral tablet Dose : 15 mg = 1 tab(s), Oral, qDay, # 90 tab(s), 1 Refill(s), Pharmacy: [facility], Arthritis, 173, cm, 05/12/22 10:31:00 EST, Height, kg, 05/12/22 10:31:00 EST, Dosing Weight Start Date: 05/12/22 Stop Date: 11/08/22 Status: Ordered Start: 11-09-2021 End: 05-08-2022 meloxicam 15 mg oral tablet Dose : 15 mg = 1 tab(s), Oral, qDay, # 90 tab(s), 1 Refill(s), Pharmacy: [facility], Arthritis, 175, cm, 11/09/21 9:03:00 EDT, Height, kg, 11/09/21 9:03:00 EDT, Dosing Weight Start Date: 11/09/21 Stop Date: 05/08/22 Status: Ordered Start: 10-20-2020 End: 07-17-2021 meloxicam 15 mg oral tablet Dose : 15 mg = 1 tab(s), Oral, qDay, # 90 tab(s), 2 Refill(s), Pharmacy: [facility], Arthritis, 175, cm, 10/20/20 10:15:00 EDT, [...] 08/09/2024, # 60 cap(s), 2 Refill(s), Pharmacy: [facility], Chronic back pain Back pain with [...] qDay, # 30 cap(s), 2 Refill(s), Pharmacy: [facility], Failed back surgical syndrome Arthritis of [...] for mild enthesopathic spur formation. IMPRESSION: 1. Ogap-pt-[id number] osteoarthritis of the left hip. Other nutritional; [...] US BREAST RIGHT LIMITED [facility] [address] [place], [place] [address] PROCEDURE FOR: FILIBERTO Sherman SHOSHANA [address] [place] [address] Home: PID#: [id number] Exam#: [id number] : 1955 Age: 69 TO: CANDY WOODSON MANAGER RESPIRATORY CARE INFORMATICS SCIENTIST [address] [place], [place] [address] Fax: NO FAX EXAMINATION: ULTRASOUND OF THE [...] 12/26/2024 7:00:43 PM Ordering Provider: CANDY WOODSON Retail Business Analyst: TRACEY INIGUEZ RT(Howard)(M) RDLA letter sent: Probably Benign BI-RADS 3 Ultrasound BI-RADS: 3 Probably benign Normal [facility] .GFRon 12-03-2024 Estimated Glomerular Filtration Rate 64 ml/min/1.73sqm Normal [facility] Comment on above: Result Comment: Stages of [...] #### C MP, VIDH, GFR, LIPID ####[address] [place], [place] [address] CMPon 12-03-2024 Albumin Level 3.4 G/dL Normal 3.4-4.8 [facility] Comment on above: Performed By: #### C MP, VIDH, GFR, LIPID ####[address] [place], [place] [address] Albumin/Globulin [Mass ratio] 0.8 {ratio} Low 1.1-2.5 [facility] Comment on above: Performed By: #### C MP, VIDH, GFR, LIPID ####[place] [address] [place], [place] [address] ALP [Catalytic activity/Vol] 96 U/L Normal 40-135 [facility] Comment on above: Performed By: #### C MP, VIDH, GFR, LIPID ####[facility] [place], [place] [address] ALT [Catalytic activity/Vol] 29 U/L Normal 14-59 [facility] Comment on above: Performed By: #### C MP, VIDH, GFR, LIPID ####[address] [place], [place] [address] AST [Catalytic activity/Vol] 21 U/L Normal 10-40 [facility] Comment on above: Performed By: #### C MP, VIDH, GFR, LIPID ####[address] [place], [place] [address] Bili Total 0.3 mg/dL Normal 0.2-1.0 [facility] Comment on above: Result Comment: Use of this assay is not recommended for patients undergoing treatment with eltrombopag due to the potential for falsely elevated results. Performed By: #### C MP, VIDH, GFR, LIPID ####[address] [address] BUN/Creatinine Ratio 27 ratio Normal 7-27 [facility] Comment on above: Performed By: #### C MP, VIDH, GFR, LIPID ####[address] [address] Calcium [Mass/Vol] 8.8 mg/dL Normal 8.4-10.2 [facility] Comment on above: Performed By: #### C MP, VIDH, GFR, LIPID ####[address] [address] Chloride [Moles/Vol] 106 mmol/L Normal 98-107 [facility] Comment on above: Performed By: #### C MP, VIDH, GFR, LIPID ####[address] [address] CO2 [Moles/Vol] 26 mmol/L Normal 23-31 [facility] Comment on above: Performed By: #### C MP, VIDH, GFR, LIPID ####[address] [place], [place] [address] Creatinine [Mass/Vol] 0.95 mg/dL Normal 0.51-0.95 [facility] Comment on above: Performed By: #### C MP, VIDH, GFR, LIPID ####[address] [place], [place] [address] Electrolyte Balance 8.0 mEq/L Normal 4.0-15.0 [facility] Comment on above: Performed By: #### C MP, VIDH, GFR, LIPID ####[address] [place], [place] [address] Globulin 4.0 G/dL Normal 2.7-4.4 [facility] Comment on above: Performed By: #### C MP, VIDH, GFR, LIPID ####[address] [place], [place] [address] Glucose [Mass/Vol] 77 mg/dL Low 83-110 [facility] Comment on above: Performed By: #### C MP, VIDH, GFR, LIPID ####[address] [place], [place] [address] Potassium [Moles/Vol] 5.1 mmol/L Normal 3.5-5.1 [facility] Comment on above: Performed By: #### C MP, VIDH, GFR, LIPID ####[address] [place], [place] [address] Sodium [Moles/Vol] 140 mmol/L Normal 136-145 [facility] Comment on above: Performed By: #### C MP, VIDH, GFR, LIPID ####[address] [place], [place] [address] Total Protein 7.4 G/dL Normal 6.4-8.2 [facility] Comment on above: Performed By: #### C MP, VIDH, GFR, LIPID ####[address] [place], [place] [address] Urea nitrogen [Mass/Vol] 26 mg/dL High 7-18 [facility] Comment on above: Performed By: #### C MP, VIDH, GFR, LIPID ####[address] [place], [place] [address] LABORATORYOrdered By: SYSTEM SYSTEM on 12-03-2024 25-hydroxyvitamin [...] 12-03-2024 Cholesterol [Mass/Vol] 171 mg/dL Normal 0-200 [facility] Comment on above: Result Comment: Chol esterol Reference Interval: Less than 200 Desirable 200-239 Borderline high risk 240 and above High risk Performed By: #### C NICOLE, VIDH, GFR, LIPID ####[address] [place], [place] [address] Cholesterol in HDL [Mass/Vol] 49 mg/dL Normal 40-60 [facility] Comment on above: Performed By: #### C NICOLE, VILORENA, GFR, LIPID ####[facility] [place], [place] [address] Cholesterol in LDL [Mass/Vol] 93 mg/dL Normal 0-130 [facility] Comment on above: Performed By: #### C NICOLE, VIDH, GFR, LIPID ####[place] [address] [place], [place] [address] Triglyceride [Mass/Vol] 144 mg/dL Normal 0-150 [facility] Comment on above: Result Comment: Trig lyceride Reference Interval: Less than 150 Normal 150-199 Borderline high risk 200-499 High risk 500 or higher Very high risk Performed By: #### C MP, VIDH, GFR, LIPID ####[address] [place], [place] [address] VIDHon 12-03-2024 Vit. D 25-Hydroxy 32.8 ng/mL Normal [facility] Comment on above: Result Comment: Inte rpretive Values Based on Total 25([place]) Vitamin D: Deficient <20 ng/mL Insufficient 20 - <30 ng/mL Sufficient 30-100 ng/mL Performed By: #### C MP, VIDH, GFR, LIPID ####[address] [place], [place] [address] Absolute neutrophil countOrd ered By: Yaniv Pitts on 08-19-2024 Neutrophils (Bld) [#/Vol] 4.8 10*3/uL 2.0-7.7 [facility] Basophil percentageOrdered B y: Yaniv Pitts on 08-19-2024 Basophils/100 WBC (Bld) 0.3 % 0-1 [facility] CBC W/Diff, Automatedon 08-03 Absolute Lymph 1.85 X10 3/uL Normal 0.83-4.51 [facility] Comment on above: Performed By: #### L 300.3900, L100.0100, L300.4310 #### [facility] [address] [place], [address] Absolute Neut 4.8 X10 3/uL Normal 2.0-7.7 [facility] Comment on above: Performed By: #### L 300.3900, L100.0100, L300.4310 #### [facility] [address] [place], [address] Basophils/100 WBC (Bld) 0.3 % Normal 0-1 [facility] Comment on above: Performed By: #### L 300.3900, L100.0100, L300.4310 #### [facility] [address] [place], [address] Eosinophils/100 WBC (Bld) 1.0 % Normal 0-5 [facility] Comment on above: Performed By: #### L 300.3900, L100.0100, L300.4310 #### [facility] [address] [place], [address] Erythrocyte distribution width (RBC) [Ratio] 14.3 % Normal 11.6-14.6 [facility] Comment on above: Performed By: #### L 300.3900, L100.0100, L300.4310 #### [facility] [address] [place], [address] Hematocrit (Bld) [Volume fraction] 42.6 % Normal 37-47 [facility] Comment on above: Performed By: #### L 300.3900, L100.0100, L300.4310 #### [facility] [address] [place], [address] Hemoglobin (Bld) [Mass/Vol] 14.0 g/dL Normal 12.0-15.0 [facility] Comment on above: Performed By: #### L 300.3900, L100.0100, L300.4310 #### [facility] [address] [place], [address] IG% 0.400 Normal 0.0-0.9 [facility] Comment on above: Result Comment: IG% - Immature Granulocytes (promyelocytes, myelocytes and metamyelocytes) > 1% indicates that a LEFT SHIFT is Present. Performed By: #### L 300.3900, L100.0100, L300.4310 #### [facility] [address] [place], [address] Lymphocytes/100 WBC (Bld) 25.2 % Normal 19-41 [facility] Comment on above: Performed By: #### L 300.3900, L100.0100, [id number] #### [facility] [address] [place], [address] MCH (RBC) [Entitic mass] 30.6 pg Normal 27.0-32.0 [facility] Comment on above: Performed By: #### L 300.3900, L100.0100, [id number] #### [facility] [address] [place], [address] MCHC (RBC) [Mass/Vol] 32.9 g/dL Normal 32-36 [facility] Comment on above: Performed By: #### L 300.3900, L100.0100, L300.4310 #### [facility] [facility] [address] [place], [address] MCV (RBC) [Entitic vol] 93.2 fL Normal 81-99 [facility] Comment on above: Performed By: #### L 300.3900, L100.0100, L300.4310 #### [facility] [address] [place], [address] Monocytes/100 WBC (Bld) 8.0 % Normal 0-10 [facility] Comment on above: Performed By: #### L 300.3900, L100.0100, L300.4310 #### [facility] [address] [place], [address] Neutrophils/100 WBC (Bld) 65.1 % Normal 47-70 [facility] Comment on above: Performed By: #### L 300.3900, L100.0100, L300.4310 #### [facility] [address] [place], [address] Nucleated RBC (Bld) [#/Vol] 0 10*3/uL Normal 0-5 [facility] Comment on above: Performed By: #### L 300.3900, L100.0100, L300.4310 #### [facility] [address] [place], [address] Platelet mean volume (Bld) [Entitic vol] 10.4 fL Normal 6.2-12.0 [facility] Comment on above: Performed By: #### L 300.3900, L100.0100, L300.4310 #### [facility] [address] [place], [address] Platelets (Bld) [#/Vol] 275 10*3/uL Normal 150-450 [facility] Comment on above: Performed By: #### L 300.3900, L100.0100, L300.4310 #### [facility] [address] [place], [address] RBC (Bld) [#/Vol] 4.57 10*6/uL Normal 4.2-5.4 [facility] Comment on above: Performed By: #### L 300.3900, L100.0100, L300.4310 #### [facility] [address] [place], [address] RDW SD 49.1 fl High 35.1-43.9 [facility] Comment on above: Performed By: #### L 300.3900, L100.0100, L300.4310 #### [facility] [address] [place], [address] WBC (Bld) [#/Vol] 7.3 10*3/uL Normal 4.4-11.0 [facility] Comment on above: Performed By: #### L 300.3900, L100.0100, L300.4310 #### [facility] [address] [place], [address] Eosinophil percentageOrdered By: Yaniv Pitts on 08-19-2024 Eosinophils/100 WBC (Bld) 1.0 % 0-5 [facility] Erythrocyte distribution wid th ratioOrdered By: Yaniv Pitts on 08-19-2024 Erythrocyte distribution width (RBC) [Ratio] 14.3 % 11.6-14.6 [facility] Erythrocyte distribution wid th standard deviationOrdered By: Yaniv Pitts on 08-19-2024 Erythrocyte distribution width (RBC) [Entitic vol] 49.1 fL High 35.1-43.9 [facility] Hematocrit Auto (Bld) [Volum e fraction]Ordered By: Yaniv Pitts on 08-19-2024 Hematocrit (Bld) [Volume fraction] 42.6 % 37-47 [facility] Hemoglobin measurementOrdere d By: Yaniv Pitts on 08-19-2024 Hemoglobin (Bld) [Mass/Vol] 14.0 g/dL 12.0-15.0 [facility] Immature granulocytes/100 WB C Auto (Bld)Ordered By: Yaniv Pitts on 08-19-2024 Immature granulocytes/100 WBC (Bld) 0.400 % 0.0-0.9 [facility] Comment on above: IG% - Immature Granu locytes (promyelocytes, myelocytes and metamyelocytes) > 1% indicates that a LEFT SHIFT is Present. International normalized rat io (INR) calculationOrdered By: Yaniv Pitts on 08-19-2024 INR Coag (Bld) [Relative time] 1.0 {INR} [facility] Lumbar Myelogramon Lumbar Myelogram [facility] Imaging Services [address] [place], [place] [id number] Lumbar Myelogram MR#: [id number] Acct: [id number] Name: FILIBERTO VALDIVIA Rep #: [id number] : 1955 F 69 From: Yaniv willams MD PCP: Candy Woodson, VEHICLE CALIBRATION ENGINEER-C Status: REG CLI Study: Lumbar Myelogram Date of Exam: 08/19/24 Exam# [id number] Ordering Dr: Danielle Castillo PROCEDURE: LUMBAR MYELOGRAM [...] well. CT we will follow. Reading Location: [place] [address] CC: VEHICLE CALIBRATION ENGINEERСергей Woodson; HELIO Castillo Environmental Programs Specialist: Signed Normal [facility] Lymphocytes Auto (Unsp spec) [#/Vol]Ordered By: Yaniv Pitts on 08-19-2024 Lymphocytes (Bld) [#/Vol] 1.85 10*3/uL 0.83-4.51 [facility] Lymphocytes/100 WBC Auto (Un sp spec)Ordered By: Yaniv Pitts on 08-19-2024 Lymphocytes/100 WBC (Bld) 25.2 % 19-41 [facility] MCV (mean corpuscular volume ) determinationOrdered By: Yaniv Pitts on 08-19-2024 MCV (RBC) [Entitic vol] 93.2 fL 81-99 [facility] Mean corpuscular hemoglobin (MCH) determinationOrdered By: Yaniv Pitts on 08-19-2024 MCH (RBC) [Entitic mass] 30.6 pg 27.0-32.0 [facility] Mean corpuscular hemoglobin concentration (MCHC) determinationOrdered By: Yaniv Pitts on 08-19-2024 MCHC (RBC) [Mass/Vol] 32.9 g/dL 32-36 [facility] Mean platelet volume determi nationOrdered By: Yaniv Pitts on 08-19-2024 Platelet mean volume (Bld) [Entitic vol] 10.4 fL 6.2-12.0 [facility] Monocyte percentageOrdered B y: Yaniv Pitts on 08-19-2024 Monocytes/100 WBC (Bld) 8.0 % 0-10 [facility] Neutrophil percentageOrdered By: Yaniv Pitts on 08-19-2024 Neutrophils/100 WBC (Bld) 65.1 % 47-70 [facility] Nucleated red blood cell per centageOrdered By: Yaniv Pitts on 08-19-2024 Nucleated RBC/100 WBC (Bld) [Ratio] 0 % 0-5 [facility] Partial Thromboplast Timeon 08-19-2024 aPTT Coag (Bld) [Time] 23.6 s Low 24.1-36.2 [facility] Comment on above: Performed By: #### L 300.3900, L100.0100, L300.4310 #### [facility] [address] [facility] [place], [place], [address] Platelet countOrdered By: Galindo Pitts on 08-19-2024 Platelets (Bld) [#/Vol] 275 10*3/uL 150-450 [facility] Prothrombin Time w/INRon INR Coag (PPP) [Relative time] 1.0 {INR} Normal [facility] Comment on above: Performed By: #### L 300.3900, L100.0100, L300.4310 #### [facility] [address] [place], [place], [address] PT Coag (PPP) [Time] 13.1 s Normal 11.7-14.9 [facility] Comment on above: Performed By: #### L 300.3900, L100.0100, L300.4310 #### [facility] [address] [place], [address] Prothrombin timeOrdered By: Yaniv Pitts on 08-19-2024 PT Coag (PPP) [Time] 13.1 s 11.7-14.9 [facility] RBC Auto (Bld) [#/Vol]Ordere d By: Yaniv Pitts on 08-19-2024 RBC (Bld) [#/Vol] 4.57 10*6/uL 4.2-5.4 [facility] Spine Lumbar WITH Contraston 08-19-2024 Spine Lumbar WITH Contrast [facility] Imaging Services [address] [place] [address] Spine Lumbar WITH Contrast MR#: [id number] Acct: [id number] Name: FILIBERTO VALDIVIA Rep #: [id number] : 1955 F 69 From: Yaniv willams MD PCP: Candy Woodson, VEHICLE CALIBRATION ENGINEER-C Status: REG CLI Study: Spine Lumbar WITH Contrast Date of Exam: 08/19 Exam# [id number] Ordering Dr: Danielle Castillo PROCEDURE: SPINE LUMBAR [...] at the L5- S1 level. Reading Location: [place] [address] CC: SCOOTER Woodson; HELIO Castillo Environmental Programs Specialist: Signed Normal [facility] White blood cell (WBC) count Ordered By: Yaniv Pitts on 08-19-2024 WBC (Bld) [#/Vol] 7.3 10*3/uL 4.4-11.0 [facility] aPTT Coag (PPP) [Time]Ordere d By: Yaniv Pitts on 08-19-2024 aPTT Coag (Bld) [Time] 23.6 s Low 24.1-36.2 [facility] UDRUGon 08-16-2024 Amphetamine (u) Negative Normal Negative [facility] Comment on above: Performed By: #### U DRUG #### [address] [address] Barbiturate (u) Negative Normal Negative [facility] Comment on above: Performed By: #### U DRUG #### [address] [address] Benzodiazepine (u) Negative Normal Negative [facility] Comment on above: Performed By: #### U DRUG #### [address] [address] Cannabinoid (u) Negative Normal Negative [facility] Comment on above: Performed By: #### U DRUG #### [address] [address] Cocaine Ql (U) Negative Normal Negative [facility] Comment on above: Performed By: #### U DRUG #### [address] [address] Methadone Ql (U) Negative Normal Negative [facility] Comment on above: Performed By: #### U DRUG #### [place] [address] Opiate (u) Negative Normal Negative [facility] Comment on above: Performed By: #### U DRUG #### [place] [address] PCP (u) Negative Normal Negative [facility] Comment on above: Performed By: #### U DRUG #### [place] [address] Urine Drugs screened: See Below Normal [facility] Comment on above: Result Comment: This drug [...] ONLY. Performed By: #### U DRUG #### [place] [address] XR HIP 2-3 VIEWS LEFTon 06-05 XR [...] remarkable for mild enthesopathic spur formation. IMPRESSION: [id number] osteoarthritis of the left hip. Interpreted by: Curt Raphael MD Preliminary Report By: Curt Raphael MD Electronically signed By Curt Raphael MD Dictated Date: 06/15/2024 12:22:47 AM Prelim Date: 06/15/2024 12:24:31 AM Sign Date: 06/15/2024 12:24:31 AM Ordering Provider: MAURIZIO Shirley [facility] MA MAMMOGRAM DIAGNOSTIC BILA TERAL W/TOMOon 05-30-2024 MA MAMMOGRAM DIAGNOSTIC BILATERAL W/TRAV ORIGINAL FROM: [address] [address] PROCEDURE FOR: FILIBERTO CORMIER [address] [place] [address] Home: PID#: [id number] Exam#: [id number] : 1955 Age: 69 TO: CANDY WOODSON MANAGER RESPIRATORY CARE INFORMATICS SCIENTIST [address] [place] [phone] Fax: NO FAX EXAMINATION: DIAGNOSTIC BILATERAL MAMMOGRAM [...] addition to annual mammographic screening per the [employer]. BIRADS: BI-RADS: 0: Incomplete: Need [...] CANDY WOODSON CLINICAL: PALPABLE LUMP RIGHT BREAST. Retail Business Analyst: MC YAÑEZ RT(R)(M)(CT) letter sent: Abnormal-Needs additional work up BI-RADS 0 Mammogram BI-RADS: 0 Indeterminate Normal [facility] US BREAST RIGHT LIMITEDon US BREAST RIGHT LIMITED ORIGINAL FROM: [facility] [address] [place], [place] [address] PROCEDURE FOR: FILIBERTO CORMIER [address] [place] [address] Home: PID#: [id number] Exam#: [id number] : 1955 Age: 69 TO: CANDY WOODSON MANAGER RESPIRATORY CARE INFORMATICS SCIENTIST [address] [facility] [address] [place], [place] [address] Fax: NO FAX EXAMINATION: ULTRASOUND OF THE [...] addition to annual mammographic screening per the [employer]. BIRADS: BI-RADS: 3: Probably Benign [...] CANDY WOODSON CLINICAL: PALPABLE LUMP RIGHT BREAST. Retail Business Analyst: TRACEY INIGUEZ RT(R)(M) RDMS letter sent: Probably Benign BI-RADS 3 Ultrasound BI-RADS: 3 Probably benign Normal [facility] XR HIP 2-3 VIEWS RIGHTon XR HIP [...] 04/19/2024 2:46:28 PM Ordering Provider: MAURIZIO Shirley [facility] XR SPINE LUMBAR AP/LATon XR SPINE LUMBAR [...] 04/19/2024 2:52:45 PM Ordering Provider: MAURIZIO Shirley [facility] .Auto Diffon 04-15-2024 Basophil, Absolute 0.0 10 3/mcL Normal 0.0-0.2 [facility] Comment on above: Performed By: #### C BC, GFR, ADIFF, LIPID, CMP, VIDH, ANEU #### [address] [address] Basophils/100 WBC (Bld) 0.5 % Normal 0.0-2.5 [facility] Comment on above: Performed By: #### C BC, GFR, ADIFF, LIPID, CMP, VIDH, ANEU #### [address] [address] Eosinophil, Absolute 0.3 10 3/mcL Normal 0.0-0.7 [facility] Comment on above: Performed By: #### C BC, GFR, ADIFF, LIPID, CMP, VIDH, ANEU #### [address] [address] Eosinophils/100 WBC (Bld) 4.1 % Normal 0.0-7.0 [facility] Comment on above: Performed By: #### C BC, GFR, ADIFF, LIPID, CMP, VIDH, ANEU #### [address] [address] Lymphocyte, Absolute 1.8 10 3/mcL Normal 0.9-4.3 [facility] Comment on above: Performed By: #### C BC, GFR, ADIFF, LIPID, CMP, VIDH, ANEU #### [address] [address] Lymphocytes/100 WBC (Bld) 23.4 % Normal 20.0-40.0 [facility] Comment on above: Performed By: #### C BC, GFR, ADIFF, LIPID, CMP, VIDH, ANEU #### [address] [address] Monocyte, Absolute 0.8 10 3/mcL Normal 0.1-1.4 [facility] Comment on above: Performed By: #### C BC, GFR, ADIFF, LIPID, CMP, VIDH, ANEU #### [address] [address] Monocytes/100 WBC (Bld) 10.1 % Normal 2.0-13.0 [facility] Comment on above: Performed By: #### C BC, GFR, ADIFF, LIPID, CMP, VIDH, ANEU #### [address] [address] Neutrophils/100 WBC (Bld) 61.9 % Normal 50.0-75.0 [facility] Comment on above: Performed By: #### C BC, GFR, ADIFF, LIPID, CMP, VIDH, ANEU #### [address] [address] .GFRon 04-15-2024 GFR 72 ml/min/1.73sqm Normal [facility] Comment on above: Result Comment: GFR Population [...] GFR, ADIFF, LIPID, CMP, VIDH, ANEU #### [address] [address] GFR Non- 60 ml/min/1.73sqm Normal [facility] Comment on above: Result Comment: GFR Population [...] GFR, ADIFF, LIPID, CMP, VIDH, ANEU #### [address] [address] .NEUABSon 04-15-2024 Neutrophil, Absolute 4.6 10 3/mcL Normal 2.3-8.1 [facility] Comment on above: Performed By: #### C BC, GFR, ADIFF, LIPID, CMP, VIDH, ANEU #### [address] [address] CBCon 04-15-2024 Erythrocyte distribution width (RBC) [Ratio] 14.2 % Normal 11.5-15.5 [facility] Comment on above: Performed By: #### C BC, GFR, ADIFF, LIPID, CMP, VIDH, ANEU #### [place] [address] Hematocrit (Bld) [Volume fraction] 40.2 % Normal 34.0-46.0 [facility] Comment on above: Performed By: #### C BC, GFR, ADIFF, LIPID, CMP, VIDH, ANEU #### [place] [id number] Hgb 13.4 G/dL Normal 12.0-16.0 [facility] Comment on above: Performed By: #### C BC, GFR, ADIFF, LIPID, CMP, VIDH, ANEU #### [place] [address] MCH (RBC) [Entitic mass] 30.7 pg Normal 27.0-33.0 [facility] Comment on above: Performed By: #### C BC, GFR, ADIFF, LIPID, CMP, VIDH, ANEU #### [address] [address] MCHC 33.2 G/dL Normal 32.0-36.0 [facility] Comment on above: Performed By: #### C BC, GFR, ADIFF, LIPID, CMP, VIDH, ANEU #### [address] [address] MCV (RBC) [Entitic vol] 92.5 fL Normal 80.0-99.0 [facility] Comment on above: Performed By: #### C BC, GFR, ADIFF, LIPID, CMP, VIDH, ANEU #### [address] [address] Platelet 290 10 3/mcL Normal 150-450 [facility] Comment on above: Performed By: #### C BC, GFR, ADIFF, LIPID, CMP, VIDH, ANEU #### [address] [address] Platelet mean volume (Bld) [Entitic vol] 8.4 fL Normal 6.6-10.5 [facility] Comment on above: Performed By: #### C BC, GFR, ADIFF, LIPID, CMP, VIDH, ANEU #### [address] [address] RBC 4.35 10 6/mcL Normal 4.10-5.30 [facility] Comment on above: Performed By: #### C BC, GFR, ADIFF, LIPID, CMP, VIDH, ANEU #### [address] [address] WBC 7.5 10 3/mcL Normal 4.5-10.8 [facility] Comment on above: Performed By: #### C BC, GFR, ADIFF, LIPID, CMP, VIDH, ANEU #### [address] [address] CMPon 04-15-2024 Albumin Level 3.6 G/dL Normal 3.4-4.8 [facility] Comment on above: Performed By: #### C BC, GFR, ADIFF, LIPID, CMP, VIDH, ANEU #### [address] [address] Albumin/Globulin [Mass ratio] 1.2 {ratio} Normal 1.1-2.5 [facility] Comment on above: Performed By: #### C BC, GFR, ADIFF, LIPID, CMP, VIDH, ANEU #### [address] [address] ALP [Catalytic activity/Vol] 117 U/L Normal 40-135 [facility] Comment on above: Performed By: #### C BC, GFR, ADIFF, LIPID, CMP, VIDH, ANEU #### [address] [address] ALT [Catalytic activity/Vol] 30 U/L Normal 14-59 [facility] Comment on above: Performed By: #### C BC, GFR, ADIFF, LIPID, CMP, VIDH, ANEU #### [place] [address] AST [Catalytic activity/Vol] 29 U/L Normal 10-40 [facility] Comment on above: Performed By: #### C BC, GFR, ADIFF, LIPID, CMP, VIDH, ANEU #### [address] [address] Bili Total 0.4 mg/dL Normal 0.2-1.0 [facility] Comment on above: Result Comment: Use of this assay is not recommended for patients undergoing treatment with eltrombopag due to the potential for falsely elevated results. Performed By: #### C BC, GFR, ADIFF, LIPID, CMP, VIDH, ANEU #### [address] [address] BUN/Creatinine Ratio 24 ratio Normal 7-27 [facility] Comment on above: Performed By: #### C BC, GFR, ADIFF, LIPID, CMP, VIDH, ANEU #### [address] [address] Calcium [Mass/Vol] 9.5 mg/dL Normal 8.4-10.2 [facility] Comment on above: Performed By: #### C BC, GFR, ADIFF, LIPID, CMP, VIDH, ANEU #### [address] [address] Chloride [Moles/Vol] 105 mmol/L Normal 98-107 [facility] Comment on above: Performed By: #### C BC, GFR, ADIFF, LIPID, CMP, VIDH, ANEU #### [address] [address] CO2 [Moles/Vol] 31 mmol/L Normal 23-31 [facility] Comment on above: Performed By: #### C BC, GFR, ADIFF, LIPID, CMP, VIDH, ANEU #### [place] [id number] Creatinine [Mass/Vol] 0.93 mg/dL Normal 0.55-1.02 [facility] Comment on above: Result Comment: Test ing performed on Siemens Dimension EXL analyzer using a modified kinetic Tish technique. Performed By: #### C BC, GFR, ADIFF, LIPID, CMP, VIDH, ANEU #### [address] [address] Electrolyte Balance 3.0 mEq/L Low 4.0-15.0 [facility] Comment on above: Performed By: #### C BC, GFR, ADIFF, LIPID, CMP, VIDH, ANEU #### [address] [address] Globulin 3.1 G/dL Normal [facility] Comment on above: Performed By: #### C BC, GFR, ADIFF, LIPID, CMP, VIDH, ANEU #### [address] [address] Glucose [Mass/Vol] 80 mg/dL Low 83-110 [facility] Comment on above: Performed By: #### C BC, GFR, ADIFF, LIPID, CMP, VIDH, ANEU #### [address] [address] Potassium [Moles/Vol] 6.0 mmol/L High 3.5-5.1 [facility] Comment on above: Performed By: #### C BC, GFR, ADIFF, LIPID, CMP, VIDH, ANEU #### [address] [address] Sodium [Moles/Vol] 139 mmol/L Normal 136-145 [facility] Comment on above: Performed By: #### C BC, GFR, ADIFF, LIPID, CMP, VIDH, ANEU #### [address] [address] Total Protein 6.7 G/dL Normal 6.4-8.2 [facility] Comment on above: Performed By: #### C BC, GFR, ADIFF, LIPID, CMP, VIDH, ANEU #### [address] [address] Urea nitrogen [Mass/Vol] 22 mg/dL High 7-18 [facility] Comment on above: Performed By: #### C BC, GFR, ADIFF, LIPID, CMP, VIDH, ANEU #### [address] [address] LABORATORYOrdered By: Susan Quinones on 04-15-2024 Albumin [...] 04-15-2024 Cholesterol [Mass/Vol] 168 mg/dL Normal 0-200 [facility] Comment on above: Result Comment: Chol esterol Reference Interval: Less than 200 Desirable 200-239 Borderline high risk 240 and above High risk Performed By: #### C BC, GFR, ADIFF, LIPID, CMP, VIDH, ANEU #### [address] [address] Cholesterol in HDL [Mass/Vol] 49 mg/dL Normal 40-60 [facility] Comment on above: Performed By: #### C BC, GFR, ADIFF, LIPID, CMP, VIDH, ANEU #### [address] [address] Cholesterol in LDL [Mass/Vol] 97 mg/dL Normal 0-130 [facility] Comment on above: Performed By: #### C BC, GFR, ADIFF, LIPID, CMP, VIDH, ANEU #### [address] [address] Triglyceride [Mass/Vol] 112 mg/dL Normal 0-150 [facility] Comment on above: Result Comment: Trig lyceride Reference Interval: Less than 150 Normal 150-199 Borderline high risk 200-499 High risk 500 or higher Very high risk Performed By: #### C BC, GFR, ADIFF, LIPID, CMP, VIDH, ANEU #### [address] [address] MALBRon 04-15-2024 U Creatinine 113.3 mg/dL Normal 28.0-117.0 [facility] Comment on above: Performed By: #### M ALBR ####[address] [address] U Microalb 1495 mcg/dL Normal [facility] Comment on above: Performed By: #### M ALBR ####[address] [address] U Ratio Alb/Cre 13 mcg/mg Normal 0-30 [facility] Comment on above: Performed By: #### M ALBR ####[facility] [place], [place] [address] VIDHon 04-15-2024 Vit. D 25-Hydroxy 46.2 ng/mL Normal [facility] Comment on above: Result Comment: Inte rpretive Values Based on Total 25([place]) Vitamin D: Deficient <20 ng/mL Insufficient 20 - <30 ng/mL Sufficient 30-100 ng/mL Performed By: #### C BC, GFR, ADIFF, LIPID, CMP, VIDH, ANEU #### [facility] [address] [place], [place] [address] Breast Limited Unilateralon 10-20-2023 Breast Limited Unilateral [facility] Imaging Services [address] [place] [id number] Breast Limited Unilateral MR#: [id number] Acct: [id number] Name: FILIBERTO VALDIVIA Rep #: [id number] : 1955 F 68 From: Candy Tao MD PCP: SCOOTER Newton Status: [facility] CLI Study: Breast Limited Unilateral Date of Exam: Exam# [id number] Ordering Dr: Candy Woodson NP VEHICLE CALIBRATION ENGINEER-C -[id number] STUDY: ULTRASOUND BREAST - RIGHT REASON [...] Tao MD at 11:16 EDT , CC: VEHICLE CALIBRATION ENGINEER-C Candy Woodson Environmental Programs Specialist: Signed Normal [facility] DIAG MAMM W/CAD, BILATon DIAG MAMM W/CAD, [facility] Imaging Services [address] [place] [address] DIAG MAMM W/CAD, BIL MR#: [id number] Acct: [id number] Name: FILIBERTO VALDIVIA Rep #: [id number] : 1955 F 68 From: Yaniv willams MD PCP: SCOOTER Newton Status: REG I Study: DIAG MAMM W/CAD, BILAT Date of Exam: 10/20/23 Exam# [id number] Ordering Dr: Candy Woodson NP -[id number] MAMMOGRAPHY - BILATERAL DIAGNOSTIC REASON FOR [...] 15:04 EDT Reading Location ID and State: [facility] / [place] , Service support , CC: SCOOTER Woodson Environmental Programs Specialist: Signed Normal [facility] .GFRon 10-06-2023 GFR 80 ml/min/1.73sqm Normal [facility] ([place]) Comment on above: Result Comment: GFR Population [...] #### C MP, LIPID, VIDH, GFR #### [address] [address] GFR Non- 66 ml/min/1.73sqm Normal [facility] ([place]) Comment on above: Result Comment: GFR Population [...] #### C MP, LIPID, VIDH, GFR #### [address] [address] CMPon 10-06-2023 Albumin Level 3.6 G/dL Normal 3.4-4.8 [facility] ([place]) Comment on above: Performed By: #### C MP, LIPID, VIDH, GFR #### [address] [address] Albumin/Globulin [Mass ratio] 1.0 {ratio} Low 1.1-2.5 [facility] ([place]) Comment on above: Performed By: #### C MP, LIPID, VIDH, GFR #### [address] [address] ALP [Catalytic activity/Vol] 132 U/L Normal 40-135 [facility] ([place]) Comment on above: Performed By: #### C MP, LIPID, VIDH, GFR #### [address] [address] ALT [Catalytic activity/Vol] 25 U/L Normal 14-59 [facility] ([place]) Comment on above: Performed By: #### C MP, LIPID, VIDH, GFR #### [address] [id number] AST [Catalytic activity/Vol] 18 U/L Normal 10-40 Formerly [facility], [facility] ([place]) Comment on above: Performed By: #### C MP, LIPID, VIDH, GFR #### [address] [address] Bili Total 0.4 mg/dL Normal 0.2-1.0 Formerly [facility], [facility] ([place] Comment on above: Result Comment: Use of this assay is not recommended for patients undergoing treatment with eltrombopag due to the potential for falsely elevated results. Performed By: #### C MP, LIPID, VIDH, GFR #### [place] [id number] BUN/Creatinine Ratio 22 ratio Normal 7-27 Formerly [facility], [facility] ([place]) Comment on above: Performed By: #### C MP, LIPID, VIDH, GFR #### [address] [address] Calcium [Mass/Vol] 9.2 mg/dL Normal 8.4-10.2 [facility] ([place]) Comment on above: Performed By: #### C MP, LIPID, VIDH, GFR #### [address] [address] Chloride [Moles/Vol] 104 mmol/L Normal 98-107 [facility], [facility] ([place] Comment on above: Performed By: #### C MP, LIPID, VIDH, GFR #### [address] [address] CO2 [Moles/Vol] 27 mmol/L Normal 23-31 [facility]ly [facility], [facility] ([place] Comment on above: Performed By: #### C MP, LIPID, VIDH, GFR #### [address] [address] Creatinine [Mass/Vol] 0.85 mg/dL Normal 0.55-1.02 [facility] ([place]) Comment on above: Performed By: #### C MP, LIPID, VIDH, GFR #### [address] [address] Electrolyte Balance 11.0 mEq/L Normal 4.0-15.0 [facility] ([place]) Comment on above: Performed By: #### C MP, LIPID, VIDH, GFR #### [address] [address] Globulin 3.6 G/dL Normal [facility], [facility] ([place] Comment on above: Performed By: #### C MP, LIPID, VIDH, GFR #### [address] [address] Glucose [Mass/Vol] 87 mg/dL Normal 83-110 [facility] ([place]) Comment on above: Performed By: #### C MP, LIPID, VIDH, GFR #### [address] [address] Potassium [Moles/Vol] 4.9 mmol/L Normal 3.5-5.1 [facility] ([place] Comment on above: Performed By: #### C MP, LIPID, VIDH, GFR #### [address] [address] Sodium [Moles/Vol] 142 mmol/L Normal 136-145 [facility] ([place]) Comment on above: Performed By: #### C MP, LIPID, VIDH, GFR #### [address] [address] Total Protein 7.2 G/dL Normal 6.4-8.2 [facility], [facility] ([place] Comment on above: Performed By: #### C MP, LIPID, VIDH, GFR #### [address] [address] Urea nitrogen [Mass/Vol] 19 mg/dL High 7-18 [facility], [facility] ([place] Comment on above: Performed By: #### C MP, LIPID, VIDH, GFR #### [address] [address] LABORATORYOrdered By: SYSTEM SYSTEM on 10-06-2023 25-hydroxyvitamin [...] 10-06-2023 Cholesterol [Mass/Vol] 195 mg/dL Normal 0-200 [facility] ([place]) Comment on above: Result Comment: Chol esterol Reference Interval: Less than 200 Desirable 200-239 Borderline high risk 240 and above High risk Performed By: #### C MP, LIPID, VIDH, GFR #### [address] [address] Cholesterol in HDL [Mass/Vol] 55 mg/dL Normal 40-60 [facility], [facility] ([place] Comment on above: Performed By: #### C MP, LIPID, VIDH, GFR #### [address] [address] Cholesterol in LDL [Mass/Vol] 104 mg/dL Normal 0-130 [facility], [facility] ([place] Comment on above: Performed By: #### C MP, LIPID, VIDH, GFR #### [address] [address] Triglyceride [Mass/Vol] 179 mg/dL High 0-150 [facility] ([place]) Comment on above: Result Comment: Trig lyceride Reference Interval: Less than 150 Normal 150-199 Borderline high risk 200-499 High risk 500 or higher Very high risk Performed By: #### C MP, LIPID, VIDH, GFR #### [address] [address] VIDHon 10-06-2023 Vit. D 25-Hydroxy 37.7 ng/mL Normal [facility] ([place] Comment on above: Result Comment: Inte rpretive Values Based on Total 25(OH) Vitamin D: Deficient <20 ng/mL Insufficient 20 - <30 ng/mL Sufficient 30-100 ng/mL Performed By: #### C MP, LIPID, VIDH, GFR #### [address] [address] Re-Evaluation - PT (1)on Re-Evaluation - PT (1) [facility] Physical Therapy [facility] [address] [place] [address] / REEVALUATION / MEDICARE RECERTIFICATION PHYSICAL THERAPY MR#: [id number] Acct: [id number] Name: FILIBERTO VALDIVIA Rep #: [id number] : 1955 68 From: Sukhi Evans PT, ATC Referring Dr.: Dr. Ava Castle DO Status: REG RCR Insurance: MEDICARE PART A B [facility] Re-Evaluation Intro: Dr. Ava Castle, , It [...] do not hesitate to contact me at [phone] by phone or if you have questions or concerns regarding this new plan of care! Sincerely, Sukhi Evans, PT, ATC 09/01/23 1036 CC: SCOOTER Woodson; Dr. Ava Castle, [facility] Signed For Medicare only, by signing this I certify the plan of care. _ Physicians Signature Date Normal [facility] Absolute lymphocyte countOrd ered By: connersan marcoskimberli Mark on 06-22-2023 Lymphocytes Auto (Unsp spec) [#/Vol] 1.71 10*3/uL 0.83-4.51 [facility] Automated lymphocyte count a s percentage of total leukocytesOrdered By: connersan marcoskimberli Mark on 06-22-2023 Lymphocytes/100 WBC Auto (Unsp spec) 33.5 % 19-41 [facility] Basophil percentageOrdered B y: Jessica Mark on 06-22-2023 Basophils/100 WBC (Bld) 0.6 % 0-1 [facility] Chloride [Moles/Vol] 108 mmol/L 98-107 [facility] Eosinophils/100 WBC (Bld) 3.3 % 0-5 [facility] Glucose [Mass/Vol] 88 mg/dL 74-106 [facility] Hemoglobin (Bld) [Mass/Vol] 10.7 g/dL 12.0-15.0 [facility] Monocytes/100 WBC (Bld) 12.3 % 0-10 [facility] Neutrophils (Bld) [#/Vol] 2.6 10*3/uL 2.0-7.7 [facility] Neutrophils/100 WBC (Bld) 49.9 % 47-70 [facility] Potassium [Moles/Vol] 4.2 mmol/L 3.5-5.1 [facility] Sodium [Moles/Vol] 138 mmol/L 136-145 [facility] WBC (Bld) [#/Vol] 5.1 10*3/uL 4.4-11.0 [facility] Determination of erythrocyte mean corpuscular volume (MCV)Ordered By: Jessica Mark on 06-22-2023 MCV (RBC) [Entitic vol] 90.4 fL 81-99 [facility] Erythrocyte distribution wid th ratioOrdered By: [facility] Region[facility]imberli Mark on 06-22-2023 Erythrocyte distribution width (RBC) [Ratio] 13.2 % 11.6-14.6 [facility] Erythrocyte distribution wid th standard deviationOrdered By: Marco Asan marcoskimberli [place] on 06-22-2023 Erythrocyte distribution width (RBC) [Entitic vol] 43.4 fL 35.1-43.9 [facility] Hematocrit Auto (Bld) [Volum e fraction]Ordered By: Jessica Mark on 06-22-2023 Hematocrit (Bld) [Volume fraction] 33.9 % 37-47 [facility] Immature granulocytes/100 WB C Auto (Bld)Ordered By: [facility]berli [place] on 06-22-2023 Immature granulocytes/100 WBC (Bld) 0.400 % 0.0-0.9 [facility] Comment on above: IG% - Immature Granu locytes (promyelocytes, myelocytes and metamyelocytes) > 1% indicates that a LEFT SHIFT is Present. Laboratory - Chemistry and C hemistry - challengeOrdered By: Jessica Mark on 06-22-2023 CO2 [Moles/Vol] 26.0 mmol/L 21.0-32.0 [facility] Urea nitrogen/Creatinine [Mass ratio] 22.2 mg/mg 10-20 [facility] Laboratory - Hematology and Cell countsOrdered By: Jessica Mark on 06-22-2023 MCH (RBC) [Entitic mass] 28.5 pg 27.0-32.0 [facility] MCHC (RBC) [Mass/Vol] 31.6 g/dL 32-36 [facility] Nucleated RBC/100 WBC (Bld) [Ratio] 0 % 0-5 [facility] Platelets (Bld) [#/Vol] 327 10*3/uL 150-450 [facility] No Panel InformationOrdered By: Jessica Mark on 06-22-2023 Estimated GFR (MDRD) Amer 96 mL/min >60 [facility] Comment on above: GFR Calc Estimated GFR (MDRD) Non-Af Amer 79 mL/min >60 [facility] Comment on above: Non- GFR Calc Platelet mean volume Navi-Ec ker (Bld) [Entitic vol]Ordered By: Jessica Mark on 06-22-2023 Platelet mean volume (Bld) [Entitic vol] 9.9 fL 6.2-12.0 [facility] RBC Auto (Bld) [#/Vol]Ordere d By: Jessica Mark on 06-22-2023 RBC (Bld) [#/Vol] 3.75 10*6/uL 4.2-5.4 [facility] Serum or plasma calcium marlon urement (mass/volume)Ordered By: Jessica Mark on 06-22-2023 Calcium [Mass/Vol] 9.1 mg/dL 8.5-10.1 [facility] Serum or plasma creatinine m easurement (mass/volume)Ordered By: Jesisca Mark on 06-22-2023 Creatinine [Mass/Vol] 0.77 mg/dL 0.55-1.02 [facility] Comment on above: The validity of the calculated GFR & GFRAA in patients over 70 years has not been determined. Clinical correlation is essential. Serum or plasma urea nitroge n measurement (mass/volume)Ordered By: Jessica Mark on 06-22-2023 Urea nitrogen [Mass/Vol] 17 mg/dL 7-18 [facility] Thin prep Papanicolaou smear with manual screeningOrdered By: Jessica Mark on 06-22-2023 Thin prep Papanicolaou smear with manual screening 4 5-15 [facility] Absolute lymphocyte countOrd ered By: Jessica Mark on 06-15-2023 Lymphocytes Auto (Unsp spec) [#/Vol] 1.48 10*3/uL 0.83-4.51 [facility] Basophil percentageOrdered B y: Jessica Mark on 06-15-2023 Basophils/100 WBC (Bld) 0.3 % 0-1 [facility] Bilirubin [Mass/Vol] 0.40 mg/dL 0.20-1.00 [facility] Comment on above: For patients on eltr ombopag therapy, use of Dimension Maury TBIL is not recommended. Chloride [Moles/Vol] 110 mmol/L 98-107 [facility] Cholesterol [Mass/Vol] 133 mg/dL <200 [facility] Comment on above: <200 mg/dL Desirable 200-240 mg/dL Borderline >240 mg/dL High Risk Eosinophils/100 WBC (Bld) 2.6 % 0-5 [facility] Glucose [Mass/Vol] 85 mg/dL 74-106 [facility] Neutrophils (Bld) [#/Vol] 3.6 10*3/uL 2.0-7.7 [facility] Neutrophils/100 WBC (Bld) 60.5 % 47-70 [facility] Potassium [Moles/Vol] 4.1 mmol/L 3.5-5.1 [facility] Protein [Mass/Vol] 6.5 g/dL 6.4-8.2 [facility] Sodium [Moles/Vol] 140 mmol/L 136-145 [facility] Triglyceride [Mass/Vol] 114 mg/dL <199 [facility] Comment on above: The drugs N-Acetylcy steine and Metamizole may falsely depress this assay.Serum Triglycerides Reference Interval Normal <150 mg/dL Borderline high 150 - 199 mg/dL High 200 - 499 mg/dL Very High > or = 500 mg/dL WBC (Bld) [#/Vol] 5.9 10*3/uL 4.4-11.0 [facility] Blood erythrocytes count (nu mber/volume)Ordered By: Jessica Mark on 06-15-2023 RBC (Bld) [#/Vol] 3.62 10*6/uL 4.2-5.4 [facility] Blood hemoglobin measurement (mass/volume)Ordered By: Jessica Mark on 06-15-2023 Hemoglobin (Bld) [Mass/Vol] 10.4 g/dL 12.0-15.0 [facility] Blood lymphocytes/100 leukoc ytesOrdered By: naeem Mark on 06-15-2023 Lymphocytes/100 WBC (Bld) 25.2 % 19-41 [facility] Blood monocytes/100 leukocyt esOrdered By: [facility] Mark on 06-15-2023 Monocytes/100 WBC (Bld) 11.1 % 0-10 [facility] Blood platelet mean volumeOr dered By: naeem Mark on 06-15-2023 Platelet mean volume (Bld) [Entitic vol] 9.5 fL 6.2-12.0 [facility] Determination of erythrocyte mean corpuscular volume (MCV)Ordered By: naeem Mark on 06-15-2023 MCV (RBC) [Entitic vol] 88.1 fL 81-99 [facility] Hematocrit Auto (Bld) [Volum e fraction]Ordered By: Jessica Mark on 06-15-2023 Hematocrit (Bld) [Volume fraction] 31.9 % 37-47 [facility] Laboratory - Chemistry and C hemistry - challengeOrdered By: Jessica Mark on 06-15-2023 ALP [Catalytic activity/Vol] 97 U/L 45-117 [facility] ALT [Catalytic activity/Vol] 15 U/L 13-56 [facility] CO2 [Moles/Vol] 23.0 mmol/L 21.0-32.0 [facility] Globulin (S) [Mass/Vol] 3.9 g/dL 2.2-4.2 [facility] Urea nitrogen/Creatinine [Mass ratio] 21.6 mg/mg 10-20 [facility] Laboratory - Hematology and Cell countsOrdered By: naeem Mark on 06-15-2023 Erythrocyte distribution width (RBC) [Entitic vol] 42.2 fL 35.1-43.9 [facility] Erythrocyte distribution width (RBC) [Ratio] 13.2 % 11.6-14.6 [facility] Immature granulocytes/100 WBC (Bld) 0.300 % 0.0-0.9 [facility] Comment on above: IG% - Immature Granu locytes (promyelocytes, myelocytes and metamyelocytes) > 1% indicates that a LEFT SHIFT is Present. MCH (RBC) [Entitic mass] 28.7 pg 27.0-32.0 [facility] Nucleated RBC/100 WBC (Bld) [Ratio] 0 % 0-5 [facility] MCHC Auto (RBC) [Mass/Vol]Or dered By: Jessica Mark on 06-15-2023 MCHC (RBC) [Mass/Vol] 32.6 g/dL 32-36 [facility] No Panel InformationOrdered By: Jessica Mark on 06-15-2023 Estimated GFR (MDRD) Amer 99 mL/min >60 [facility] Comment on above: GFR Calc Estimated GFR (MDRD) Non-Af Amer 82 mL/min >60 [facility] Comment on above: Non- GFR Calc Vitamin D 25-Hydroxy 50.6 ng/mL [facility] Comment on above: Vitamin D 25(OH) Sta tus Range Deficiency <20 ng/mL (50nmol/L) Insufficiency 20 - 30 ng/mL (50 - 75 nmol/L) Sufficiency 30 - 100 ng/mL (75 - 250 nmol/L) Toxicity >100 ng/mL (>250 nmol/L) Platelets bldOrdered By: Mj Mark on 06-15-2023 Platelets (Bld) [#/Vol] 372 10*3/uL 150-450 [facility] Serum or plasma albumin marlon urement (mass/volume)Ordered By: Jessica Mark on 06-15-2023 Albumin [Mass/Vol] 2.6 g/dL 3.2-5.0 [facility] Serum or plasma albumin/glob ulin mass ratioOrdered By: Jessica Mark on 06-15-2023 Albumin/Globulin [Mass ratio] 0.7 {ratio} 0.9-2.4 [facility] Serum or plasma calcium marlon urement (mass/volume)Ordered By: Jessica Mark on 06-15-2023 Calcium [Mass/Vol] 8.9 mg/dL 8.5-10.1 [facility] Serum or plasma cholesterol in HDL measurement (mass/volume)Ordered By: Jessica Mark on 06-15-2023 Cholesterol in HDL [Mass/Vol] 39 mg/dL >40 [facility] Comment on above: The drugs N-Acetylcy steine and Metamizole may falsely depress this assay. Reference Range HDL <40 mg/dL Low HDL Cholesterol HDL >or= 60 mg/dL High HDL Cholesterol Serum or plasma cholesterol in VLDL measurement (mass/volume)Ordered By: Jessica Mark on 06-15-2023 Cholesterol in VLDL [Mass/Vol] 23 mg/dL 5-40 [facility] Serum or plasma creatinine m easurement (mass/volume)Ordered By: Jessica Mark on 06-15-2023 Creatinine [Mass/Vol] 0.74 mg/dL 0.55-1.02 [facility] Comment on above: The validity of the calculated GFR & GFRAA in patients over 70 years has not been determined. Clinical correlation is essential. Serum or plasma low density lipoprotein (LDL) cholesterol measurement (mass/volume)Ordered By: Jessica Mark on 06-15-2023 Cholesterol in LDL [Mass/Vol] 71 mg/dL 0-130 [facility] Serum or plasma urea nitroge n measurement (mass/volume)Ordered By: Jessica Mark on 06-15-2023 Urea nitrogen [Mass/Vol] 16 mg/dL 7-18 [facility] Thin prep Papanicolaou smear with manual screeningOrdered By: Jessica Mark on 06-15-2023 Thin prep Papanicolaou smear with manual screening 13 U/L 15-37 [facility] Thin prep Papanicolaou smear with manual screening 7 5-15 [facility] Absolute lymphocyte countOrd ered By: Adán Khalil on 06-14-2023 Lymphocytes Auto (Unsp spec) [#/Vol] 1.19 10*3/uL 0.83-4.51 [facility] Basophil percentageOrdered B y: Adán Khalil on 06-14-2023 Basophils/100 WBC (Bld) 0.4 % 0-1 [facility] Chloride [Moles/Vol] 111 mmol/L 98-107 [facility] Eosinophils/100 WBC (Bld) 4.1 % 0-5 [facility] Glucose [Mass/Vol] 93 mg/dL 74-106 [facility] Neutrophils (Bld) [#/Vol] 3.4 10*3/uL 2.0-7.7 [facility] Neutrophils/100 WBC (Bld) 62.4 % 47-70 [facility] Potassium [Moles/Vol] 4.0 mmol/L 3.5-5.1 [facility] Sodium [Moles/Vol] 141 mmol/L 136-145 [facility] WBC (Bld) [#/Vol] 5.4 10*3/uL 4.4-11.0 [facility] Blood erythrocytes count (nu mber/volume)Ordered By: Adán Khalil on 06-14-2023 RBC (Bld) [#/Vol] 3.73 10*6/uL 4.2-5.4 [facility] Blood hemoglobin measurement (mass/volume)Ordered By: Adán Khalil on 06-14-2023 Hemoglobin (Bld) [Mass/Vol] 10.7 g/dL 12.0-15.0 [facility] Blood lymphocytes/100 leukoc ytesOrdered By: Adán Khalil on 06-14-2023 Lymphocytes/100 WBC (Bld) 22.0 % 19-41 [facility] Blood monocytes/100 leukocyt esOrdered By: Adán Khalil on 06-14-2023 Monocytes/100 WBC (Bld) 10.7 % 0-10 [facility] Blood platelet mean volumeOr dered By: Adán Khalil on 06-14-2023 Platelet mean volume (Bld) [Entitic vol] 9.3 fL 6.2-12.0 [facility] COVID-19 virus antigen assay Ordered By: Adán Khalil on 06-14-2023 SARS-CoV-2 (COVID-19) Ag IA.rapid Ql (Resp) [facility] Determination of erythrocyte mean corpuscular volume (MCV)Ordered By: Adán Khalil on 06-14-2023 MCV (RBC) [Entitic vol] 88.2 fL 81-99 [facility] Hematocrit Auto (Bld) [Volum e fraction]Ordered By: Adán Khalil on 06-14-2023 Hematocrit (Bld) [Volume fraction] 32.9 % 37-47 [facility] Laboratory - Chemistry and C hemistry - challengeOrdered By: Adán Khalil on 06-14-2023 CO2 [Moles/Vol] 25.0 mmol/L 21.0-32.0 [facility] Urea nitrogen/Creatinine [Mass ratio] 23.8 mg/mg 10-20 [facility] Laboratory - Hematology and Cell countsOrdered By: Adán Khalil on 06-14-2023 Erythrocyte distribution width (RBC) [Entitic vol] 42.3 fL 35.1-43.9 [facility] Erythrocyte distribution width (RBC) [Ratio] 13.1 % 11.6-14.6 [facility] Immature granulocytes/100 WBC (Bld) 0.400 % 0.0-0.9 [facility] Comment on above: IG% - Immature Granu locytes (promyelocytes, myelocytes and metamyelocytes) > 1% indicates that a LEFT SHIFT is Present. MCH (RBC) [Entitic mass] 28.7 pg 27.0-32.0 [facility] Nucleated RBC/100 WBC (Bld) [Ratio] 0 % 0-5 [facility] MCHC Auto (RBC) [Mass/Vol]Or dered By: Adán Khalil on 06-14-2023 MCHC (RBC) [Mass/Vol] 32.5 g/dL 32-36 [facility] No Panel InformationOrdered By: Adán Khalil on 06-14-2023 Estimated Creatinine Clearance Calc 74.00 ml/min [facility] Estimated GFR (MDRD) Amer 112 mL/min >60 [facility] Comment on above: GFR Calc Estimated GFR (MDRD) Non-Af Amer 92 mL/min >60 [facility] Comment on above: Non- GFR Calc Platelets bldOrdered By: Sneha Khalil on 06-14-2023 Platelets (Bld) [#/Vol] 357 10*3/uL 150-450 [facility] Serum or plasma calcium marlon urement (mass/volume)Ordered By: Adán Khalil on 06-14-2023 Calcium [Mass/Vol] 9.0 mg/dL 8.5-10.1 [facility] Serum or plasma creatinine m easurement (mass/volume)Ordered By: Adán Khlail on 06-14-2023 Creatinine [Mass/Vol] 0.67 mg/dL 0.55-1.02 [facility] Comment on above: The validity of the calculated GFR & GFRAA in patients over 70 years has not been determined. Clinical correlation is essential. Serum or plasma urea nitroge n measurement (mass/volume)Ordered By: Adán Khalil on 06-14-2023 Urea nitrogen [Mass/Vol] 16 mg/dL 7-18 [facility] Thin prep Papanicolaou smear with manual screeningOrdered By: Adán Khalil on 06-14-2023 Thin prep Papanicolaou smear with manual screening 5 5-15 [facility] Basophil percentageOrdered B y: Jeri Burns on 06-13-2023 Bilirubin [Mass/Vol] 0.40 mg/dL 0.20-1.00 [facility] Comment on above: For patients on eltr ombopag therapy, use of Dimension Maury TBIL is not recommended. Protein [Mass/Vol] 6.2 g/dL 6.4-8.2 [facility] Laboratory - Chemistry and C hemistry - challengeOrdered By: Jeri Burns on 06-13-2023 ALP [Catalytic activity/Vol] 96 U/L 45-117 [facility] ALT [Catalytic activity/Vol] 15 U/L 13-56 [facility] Globulin (S) [Mass/Vol] 3.5 g/dL 2.2-4.2 [facility] Serum or plasma albumin marlon urement (mass/volume)Ordered By: Jeri Burns on 06-13-2023 Albumin [Mass/Vol] 2.7 g/dL 3.2-5.0 [facility] Serum or plasma albumin/glob ulin mass ratioOrdered By: Jeri Burns on 06-13-2023 Albumin/Globulin [Mass ratio] 0.8 {ratio} 0.9-2.4 [facility] Stool enteric pathogen panel by probe and target amplification methodOrdered By: Jabari Baig on 06-13-2023 Gastrointestinal pathogens panel VIKASH+probe (Stl) [facility] Thin prep Papanicolaou smear with manual screeningOrdered By: Jeri Burns on 06-13-2023 Thin prep Papanicolaou smear with manual screening 14 U/L 15-37 [facility] Absolute lymphocyte countOrd ered By: Jabari Baig on 06-12-2023 Lymphocytes Auto (Unsp spec) [#/Vol] 0.83 10*3/uL 0.83-4.51 [facility] Basophil percentageOrdered B y: Jabari Baig on 06-12-2023 Basophil percentage 10-25 SEEN /hpf 0-5 [facility] Basophils/100 WBC (Bld) 0.3 % 0-1 [facility] Chloride [Moles/Vol] 108 mmol/L 98-107 [facility] Eosinophils/100 WBC (Bld) 0.4 % 0-5 [facility] Glucose [Mass/Vol] 117 mg/dL 74-106 [facility] Comment on above: Fasting Glucose resu lt from 100 to 125 mg/dL suggests IMPAIRED HOMEOSTASIS per A.D.A. criteria. Neutrophils (Bld) [#/Vol] 5.3 10*3/uL 2.0-7.7 [facility] Neutrophils/100 WBC (Bld) 78.9 % 47-70 [facility] Potassium [Moles/Vol] 3.7 mmol/L 3.5-5.1 [facility] Sodium [Moles/Vol] 138 mmol/L 136-145 [facility] WBC (Bld) [#/Vol] 6.8 10*3/uL 4.4-11.0 [facility] Basophil percentageOrdered B y: Jeri White on 06-12-2023 Basophil percentage 3.8 mg/dL 2.5-4.9 [facility] Bilirubin Test strip Ql (U)O rdered By: Jabari Baig on 06-12-2023 Bilirubin Ql (U) Negative Negative [facility] Blood erythrocytes count (nu mber/volume)Ordered By: Jabari Baig on 06-12-2023 RBC (Bld) [#/Vol] 4.19 10*6/uL 4.2-5.4 [facility] Blood hemoglobin measurement (mass/volume)Ordered By: Jabari Baig on 06-12-2023 Hemoglobin (Bld) [Mass/Vol] 12.0 g/dL 12.0-15.0 [facility] Blood lymphocytes/100 leukoc ytesOrdered By: Jabari Baig on 06-12-2023 Lymphocytes/100 WBC (Bld) 12.3 % 19-41 [facility] Blood monocytes/100 leukocyt esOrdered By: Jabari Baig on 06-12-2023 Monocytes/100 WBC (Bld) 7.7 % 0-10 [facility] Blood platelet mean volumeOr dered By: Jabari Baig on 06-12-2023 Platelet mean volume (Bld) [Entitic vol] 9.0 fL 6.2-12.0 [facility] Culture, urineOrdered By: Yuniel Baig on 06-12-2023 Bacteria identified Cx Nom (U) Mixed Gram Pos & Gram Neg Org [facility] Determination of erythrocyte mean corpuscular volume (MCV)Ordered By: Jabari Baig on 06-12-2023 MCV (RBC) [Entitic vol] 89.0 fL 81-99 [facility] Hematocrit Auto (Bld) [Volum e fraction]Ordered By: Jabari Baig on 06-12-2023 Hematocrit (Bld) [Volume fraction] 37.3 % 37-47 [facility] Hyaline casts LM.LPF (Urine sed) [#/Area]Ordered By: Jabari Baig on 06-12-2023 Hyaline casts (Urine sed) [#/Area] 0 /[LPF] 0-5 [facility] Ketones Test strip Ql (U)Ord ered By: Jabari Baig on 06-12-2023 Ketones Ql (U) 5 mg/dl Negative [facility] Laboratory - Chemistry and C hemistry - challengeOrdered By: Jabari Baig on 06-12-2023 CO2 [Moles/Vol] 25.0 mmol/L 21.0-32.0 [facility] Urea nitrogen/Creatinine [Mass ratio] 23.5 mg/mg 10-20 [facility] Laboratory - Chemistry and C hemistry - challengeOrdered By: Jeri Burns on 06-12-2023 Magnesium [Mass/Vol] 2.3 mg/dL 1.6-2.6 [facility] Laboratory - Hematology and Cell countsOrdered By: Jabari Baig on 06-12-2023 Erythrocyte distribution width (RBC) [Entitic vol] 41.6 fL 35.1-43.9 [facility] Erythrocyte distribution width (RBC) [Ratio] 12.9 % 11.6-14.6 [facility] Immature granulocytes/100 WBC (Bld) 0.400 % 0.0-0.9 [facility] Comment on above: IG% - Immature Granu locytes (promyelocytes, myelocytes and metamyelocytes) > 1% indicates that a LEFT SHIFT is Present. MCH (RBC) [Entitic mass] 28.6 pg 27.0-32.0 [facility] Nucleated RBC/100 WBC (Bld) [Ratio] 0 % 0-5 [facility] MCHC Auto (RBC) [Mass/Vol]Or dered By: Jabair Baig on 06-12-2023 MCHC (RBC) [Mass/Vol] 32.2 g/dL 32-36 [facility] Mucus LM Ql (Urine sed)Order ed By: Jabari Baig on 06-12-2023 Mucus Ql (Urine sed) 0 SEEN /hpf [facility] Nitrite Test strip Ql (U)Ord ered By: Jabari Baig on 06-12-2023 Nitrite Ql (U) Negative Negative [facility] No Panel InformationOrdered By: Jabari Baig on 06-12-2023 Estimated GFR (MDRD) Amer 69 mL/min >60 [facility] Comment on above: GFR Calc Estimated GFR (MDRD) Non-Af Amer 57 mL/min >60 [facility] Comment on above: Non- GFR Calc Platelets bldOrdered By: Amanda Baig on 06-12-2023 Platelets (Bld) [#/Vol] 404 10*3/uL 150-450 [facility] Protein Test strip Ql (U)Ord ered By: Jabari Baig on 06-12-2023 Protein Ql (U) 100 mg/dl Negative [facility] Serum or plasma calcium marlon urement (mass/volume)Ordered By: Jabari Baig on 06-12-2023 Calcium [Mass/Vol] 9.6 mg/dL 8.5-10.1 [facility] Serum or plasma creatinine m easurement (mass/volume)Ordered By: Jabari Baig on 06-12-2023 Creatinine [Mass/Vol] 1.02 mg/dL 0.55-1.02 [facility] Comment on above: The validity of the calculated GFR & GFRAA in patients over 70 years has not been determined. Clinical correlation is essential. Serum or plasma urea nitroge n measurement (mass/volume)Ordered By: Jabari Baig on 06-12-2023 Urea nitrogen [Mass/Vol] 24 mg/dL 7-18 [facility] Serum procalcitonin measurem entOrdered By: Jeri Burns on 06-12-2023 Procalcitonin [Mass/Vol] 0.04 ng/mL 0.00-0.09 [facility] Comment on above: A procalcitonin (PCT ) [...] Ql (Urine sed) 10-25 SEEN /hpf 5-10 [facility] Thin prep Papanicolaou smear with manual screeningOrdered By: Jabari Baig on 06-12-2023 Thin prep Papanicolaou smear with manual screening 5 5-15 [facility] Urine blood detectionOrdered By: Jabari Baig on 06-12-2023 RBC Ql (U) 10 /ul Negative [facility] RBC Ql (U) 0-5 SEEN /hpf 0-5 [facility] Urine clarityOrdered By: Amanda Baig on 06-12-2023 Clarity (U) Sl. Cloudy Clear [facility] Urine color determinationOrd ered By: Jabari Baig on 06-12-2023 Color (U) Yellow Yellow [facility] Urine glucose detectionOrder ed By: Jabari Baig on 06-12-2023 Glucose Ql (U) Normal mg/dl Normal [facility] Urine leukocyte esterase det ection by dipstickOrdered By: Jabari Baig on 06-12-2023 Leukocyte esterase Test strip Ql (U) 100 /ul Negative [facility] Urine pHOrdered By: Jabari melissa on 06-12-2023 pH (U) 5.0 [pH] 5.0 - 8.0 [facility] Urine sediment bacteria coun t by microscopy (number/high power field)Ordered By: Jabari Baig on 06-12-2023 Bacteria LM.HPF (Urine sed) [#/Area] 2 /[HPF] None Seen [facility] Urine specific gravity measu rementOrdered By: Jabari Baig on 06-12-2023 Specific gravity (U) [Rel density] 1.020 1.002-1.030 [facility] Urobilinogen Auto test strip Ql (U)Ordered By: Jabari Baig on 06-12-2023 Urobilinogen Ql (U) 1 mg/dl Normal [facility] COVID-19 virus antigen assay Ordered By: Ava Castle on 06-06-2023 SARS-CoV-2 (COVID-19) Ag IA.rapid Ql (Resp) [facility] Absolute lymphocyte countOrd ered By: Ava Castle on 06-04-2023 Lymphocytes Auto (Unsp spec) [#/Vol] 1.52 10*3/uL 0.83-4.51 [facility] Basophil percentageOrdered B y: Ava Castle on 06-04-2023 Basophils/100 WBC (Bld) 0.4 % 0-1 [facility] Chloride [Moles/Vol] 107 mmol/L 98-107 [facility] Eosinophils/100 WBC (Bld) 6.8 % 0-5 [facility] Glucose [Mass/Vol] 91 mg/dL 74-106 [facility] Neutrophils (Bld) [#/Vol] 2.5 10*3/uL 2.0-7.7 [facility] Neutrophils/100 WBC (Bld) 49.4 % 47-70 [facility] Potassium [Moles/Vol] 4.7 mmol/L 3.5-5.1 [facility] Sodium [Moles/Vol] 139 mmol/L 136-145 [facility] WBC (Bld) [#/Vol] 5.0 10*3/uL 4.4-11.0 [facility] Blood erythrocytes count (nu mber/volume)Ordered By: Ava Castle on 06-04-2023 RBC (Bld) [#/Vol] 3.33 10*6/uL 4.2-5.4 [facility] Blood hemoglobin measurement (mass/volume)Ordered By: Ava Castle on 06-04-2023 Hemoglobin (Bld) [Mass/Vol] 9.7 g/dL 12.0-15.0 [facility] Blood lymphocytes/100 leukoc ytesOrdered By: Ava Castle on 06-04-2023 Lymphocytes/100 WBC (Bld) 30.3 % 19-41 [facility] Blood monocytes/100 leukocyt esOrdered By: Ava Castle on 06-04-2023 Monocytes/100 WBC (Bld) 12.5 % 0-10 [facility] Blood platelet mean volumeOr dered By: Ava Castle on 06-04-2023 Platelet mean volume (Bld) [Entitic vol] 9.2 fL 6.2-12.0 [facility] Determination of erythrocyte mean corpuscular volume (MCV)Ordered By: Ava Castle on 06-04-2023 MCV (RBC) [Entitic vol] 92.8 fL 81-99 [facility] Hematocrit Auto (Bld) [Volum e fraction]Ordered By: Ava Castle on 06-04-2023 Hematocrit (Bld) [Volume fraction] 30.9 % 37-47 [facility] Laboratory - Chemistry and C hemistry - challengeOrdered By: Ava Castle on 06-04-2023 CO2 [Moles/Vol] 29.0 mmol/L 21.0-32.0 [facility] Urea nitrogen/Creatinine [Mass ratio] 25.1 mg/mg 10-20 [facility] Laboratory - Hematology and Cell countsOrdered By: Ava Castle on 06-04-2023 Erythrocyte distribution width (RBC) [Entitic vol] 42.5 fL 35.1-43.9 [facility] Erythrocyte distribution width (RBC) [Ratio] 12.5 % 11.6-14.6 [facility] Immature granulocytes/100 WBC (Bld) 0.600 % 0.0-0.9 [facility] Comment on above: IG% - Immature Granu locytes (promyelocytes, myelocytes and metamyelocytes) > 1% indicates that a LEFT SHIFT is Present. MCH (RBC) [Entitic mass] 29.1 pg 27.0-32.0 [facility] Nucleated RBC/100 WBC (Bld) [Ratio] 0 % 0-5 [facility] MCHC Auto (RBC) [Mass/Vol]Or dered By: Ava Castle on 06-04-2023 MCHC (RBC) [Mass/Vol] 31.4 g/dL 32-36 [facility] No Panel InformationOrdered By: Ava Castle on 06-04-2023 Estimated Creatinine Clearance Calc 54.71 ml/min [facility] Estimated GFR (MDRD) Amer 97 mL/min >60 [facility] Comment on above: GFR Calc Estimated GFR (MDRD) Non-Af Amer 80 mL/min >60 [facility] Comment on above: Non- GFR Calc Platelets bldOrdered By: Yudy Castle on 06-04-2023 Platelets (Bld) [#/Vol] 295 10*3/uL 150-450 [facility] Serum or plasma calcium marlon urement (mass/volume)Ordered By: Ava Castle on 06-04-2023 Calcium [Mass/Vol] 8.4 mg/dL 8.5-10.1 [facility] Serum or plasma creatinine m easurement (mass/volume)Ordered By: Ava Castle on 06-04-2023 Creatinine [Mass/Vol] 0.76 mg/dL 0.55-1.02 [facility] Comment on above: The validity of the calculated GFR & GFRAA in patients over 70 years has not been determined. Clinical correlation is essential. Serum or plasma urea nitroge n measurement (mass/volume)Ordered By: Ava Castle on 06-04-2023 Urea nitrogen [Mass/Vol] 19 mg/dL 7-18 [facility] Thin prep Papanicolaou smear with manual screeningOrdered By: Ava Montanodelbert on 06-04-2023 Thin prep Papanicolaou smear with manual screening 3 5-15 [facility] COVID-19 virus antigen assay Ordered By: Ava Montanodelbert on 05-25-2023 SARS-CoV-2 (COVID-19) Ag IA.rapid Ql (Resp) [facility] Blood hemoglobin measurement (mass/volume)Ordered By: Evonne Bishop on 05-22-2023 Hemoglobin (Bld) [Mass/Vol] 11.1 g/dL 12.0-15.0 [facility] Hematocrit Auto (Bld) [Volum e fraction]Ordered By: Evonne Bishop on 05-22-2023 Hematocrit (Bld) [Volume fraction] 34.9 % 37-47 [facility] Absolute lymphocyte countOrd ered By: Mavis Vásquez on 05-16-2023 Lymphocytes Auto (Unsp spec) [#/Vol] 1.49 10*3/uL 0.83-4.51 [facility] Basophil percentageOrdered B y: Mavis Vásquez on 05-16-2023 Basophil percentage 3.9 mg/dL 2.5-4.9 [facility] Basophils/100 WBC (Bld) 0.5 % 0-1 [facility] Bilirubin [Mass/Vol] 0.30 mg/dL 0.20-1.00 [facility] Comment on above: For patients on eltr ombopag therapy, use of Dimension Maury TBIL is not recommended. Chloride [Moles/Vol] 106 mmol/L 98-107 [facility] Eosinophils/100 WBC (Bld) 7.0 % 0-5 [facility] Glucose [Mass/Vol] 96 mg/dL 74-106 [facility] Neutrophils (Bld) [#/Vol] 4.4 10*3/uL 2.0-7.7 [facility] Neutrophils/100 WBC (Bld) 59.6 % 47-70 [facility] Potassium [Moles/Vol] 4.1 mmol/L 3.5-5.1 [facility] Protein [Mass/Vol] 5.7 g/dL 6.4-8.2 [facility] Sodium [Moles/Vol] 139 mmol/L 136-145 [facility] WBC (Bld) [#/Vol] 7.3 10*3/uL 4.4-11.0 [facility] Blood erythrocytes count (nu mber/volume)Ordered By: Mavis Vásquez on 05-16-2023 RBC (Bld) [#/Vol] 3.13 10*6/uL 4.2-5.4 [facility] Blood lymphocytes/100 leukoc ytesOrdered By: Mavis Vásquez on 05-16-2023 Lymphocytes/100 WBC (Bld) 20.4 % 19-41 [facility] Blood monocytes/100 leukocyt esOrdered By: Mavis Vásquez on 05-16-2023 Monocytes/100 WBC (Bld) 12.1 % 0-10 [facility] Blood platelet mean volumeOr dered By: Mavis Vásquez on 05-16-2023 Platelet mean volume (Bld) [Entitic vol] 9.7 fL 6.2-12.0 [facility] Determination of erythrocyte mean corpuscular volume (MCV)Ordered By: Mavis Vásquez on 05-16-2023 MCV (RBC) [Entitic vol] 93.3 fL 81-99 [facility] Laboratory - Chemistry and C hemistry - challengeOrdered By: Mavis Vásquez on 05-16-2023 ALP [Catalytic activity/Vol] 60 U/L 45-117 [facility] ALT [Catalytic activity/Vol] 48 U/L 13-56 [facility] CO2 [Moles/Vol] 29.0 mmol/L 21.0-32.0 [facility] Globulin (S) [Mass/Vol] 3.5 g/dL 2.2-4.2 [facility] Magnesium [Mass/Vol] 2.3 mg/dL 1.6-2.6 [facility] Urea nitrogen/Creatinine [Mass ratio] 28.4 mg/mg 10-20 [facility] Laboratory - Hematology and Cell countsOrdered By: Mavis Vásquez on 05-16-2023 Erythrocyte distribution width (RBC) [Entitic vol] 42.7 fL 35.1-43.9 [facility] Erythrocyte distribution width (RBC) [Ratio] 12.6 % 11.6-14.6 [facility] Immature granulocytes/100 WBC (Bld) 0.400 % 0.0-0.9 [facility] Comment on above: IG% - Immature Granu locytes (promyelocytes, myelocytes and metamyelocytes) > 1% indicates that a LEFT SHIFT is Present. MCH (RBC) [Entitic mass] 30.0 pg 27.0-32.0 [facility] Nucleated RBC/100 WBC (Bld) [Ratio] 0 % 0-5 [facility] MCHC Auto (RBC) [Mass/Vol]Or dered By: Mavis Vásquez on 05-16-2023 MCHC (RBC) [Mass/Vol] 32.2 g/dL 32-36 [facility] No Panel InformationOrdered By: Mavis Vásquez on 05-16-2023 Estimated Creatinine Clearance Calc 54.71 ml/min [facility] Estimated GFR (MDRD) Amer 112 mL/min >60 [facility] Comment on above: GFR Calc Estimated GFR (MDRD) Non-Af Amer 93 mL/min >60 [facility] Comment on above: Non- GFR Calc Platelets bldOrdered By: Nohemy Vásquez on 05-16-2023 Platelets (Bld) [#/Vol] 296 10*3/uL 150-450 [facility] Serum or plasma albumin marlon urement (mass/volume)Ordered By: Mavis Vásquez on 05-16-2023 Albumin [Mass/Vol] 2.2 g/dL 3.2-5.0 [facility] Serum or plasma albumin/glob ulin mass ratioOrdered By: Mavis Vásquez on 05-16-2023 Albumin/Globulin [Mass ratio] 0.6 {ratio} 0.9-2.4 [facility] Serum or plasma calcium marlon urement (mass/volume)Ordered By: Mavis Vásquez on 05-16-2023 Calcium [Mass/Vol] 8.3 mg/dL 8.5-10.1 [facility] Serum or plasma creatinine m easurement (mass/volume)Ordered By: Mavis Vásquez on 05-16-2023 Creatinine [Mass/Vol] 0.67 mg/dL 0.55-1.02 [facility] Comment on above: The validity of the calculated GFR & GFRAA in patients over 70 years has not been determined. Clinical correlation is essential. Serum or plasma urea nitroge n measurement (mass/volume)Ordered By: Mavis Vásquez on 05-16-2023 Urea nitrogen [Mass/Vol] 19 mg/dL 12-20 [facility] Thin prep Papanicolaou smear with manual screeningOrdered By: Mavis Vásqeuz on 05-16-2023 Thin prep Papanicolaou smear with manual screening 53 U/L [facility] Thin prep Papanicolaou smear with manual screening 4 10-17 [facility] .GFRon 03-21-2023 GFR 102 ml/min/1.73sqm Normal [facility] ([place]) Comment on above: Result Comment: GFR Population [...] Performed By: #### C MP, GFR #### [place] [id number] GFR Non- 84 ml/min/1.73sqm Normal [facility] ([place] Comment on above: Result Comment: GFR Population [...] Performed By: #### C MP, GFR #### [address] [address] CMPon 03-21-2023 Albumin Level 4.0 G/dL Normal 3.4-4.8 [facility] ([place] Comment on above: Performed By: #### C MP, GFR #### [address] [address] Albumin/Globulin [Mass ratio] 1.1 {ratio} Normal 1.1-2.5 [facility] ([place] Comment on above: Performed By: #### C MP, GFR #### [address] [address] ALP [Catalytic activity/Vol] 138 U/L High 40-135 [facility] ([place] Comment on above: Performed By: #### C MP, GFR #### [address] [address] ALT [Catalytic activity/Vol] 21 U/L Normal 14-59 [facility] ([place] Comment on above: Performed By: #### C MP, GFR #### [address] [address] AST [Catalytic activity/Vol] 19 U/L Normal 10-40 [facility] ([place] Comment on above: Performed By: #### C MP, GFR #### [address] [address] Bili Total 0.5 mg/dL Normal 0.2-1.0 [facility] ([place] Comment on above: Result Comment: Use of this assay is not recommended for patients undergoing treatment with eltrombopag due to the potential for falsely elevated results. Performed By: #### C MP, GFR #### [address] [address] BUN/Creatinine Ratio 29 ratio High 7-27 [facility] ([place]) Comment on above: Performed By: #### C MP, GFR #### [address] [address] Calcium [Mass/Vol] 9.2 mg/dL Normal 8.4-10.2 [facility] ([place]) Comment on above: Performed By: #### C MP, GFR #### [address] [address] Chloride [Moles/Vol] 102 mmol/L Normal 98-107 [facility] ([place]) Comment on above: Performed By: #### C MP, GFR #### [address] [address] CO2 [Moles/Vol] 27 mmol/L Normal 23-31 [facility] ([place] Comment on above: Performed By: #### C MP, GFR #### [address] [address] Creatinine [Mass/Vol] 0.69 mg/dL Normal 0.55-1.02 [facility] ([place]) Comment on above: Performed By: #### C MP, GFR #### [address] [address] Electrolyte Balance 13.0 mEq/L Normal 4.0-15.0 [facility] ([place]) Comment on above: Performed By: #### C MP, GFR #### [address] [address] Globulin 3.8 G/dL Normal [facility] ([place] Comment on above: Performed By: #### C MP, GFR #### [address] [address] Glucose [Mass/Vol] 94 mg/dL Normal 80-115 [facility] ([place]) Comment on above: Performed By: #### C MP, GFR #### [address] [address] Potassium [Moles/Vol] 4.8 mmol/L Normal 3.5-5.1 [facility] ([place] Comment on above: Performed By: #### C MP, GFR #### [address] [address] Sodium [Moles/Vol] 142 mmol/L Normal 136-145 [facility] ([place]) Comment on above: Performed By: #### C MP, GFR #### [address] [address] Total Protein 7.8 G/dL Normal 6.4-8.2 [facility] ([place] Comment on above: Performed By: #### C MP, GFR #### [address] [address] Urea nitrogen [Mass/Vol] 20 mg/dL High 7-18 [facility] ([place] Comment on above: Performed By: #### C MP, GFR #### [address] [address] LABORATORYOrdered By: SYSTEM SYSTEM on 03-20-2023 Albumin [...] SS .GFRon 03-13-2023 GFR 79 ml/min/1.73sqm Normal [facility] ([place] Comment on above: Result Comment: GFR Population [...] Performed By: #### G , CMP #### [address] [address] GFR Non- 65 ml/min/1.73sqm Normal [facility] ([place] Comment on above: Result Comment: GFR Population [...] Performed By: #### G FR, CMP #### [address] [address] CMPon 03-13-2023 Albumin Level 4.0 G/dL Normal 3.4-4.8 [facility] ([place] Comment on above: Performed By: #### Smith RODRIGUEZ, CMP #### [address] [address] Albumin/Globulin [Mass ratio] 1.1 {ratio} Normal 1.1-2.5 [facility] ([place] Comment on above: Performed By: #### Smith RODRIGUEZ, CMP #### [address] [address] ALP [Catalytic activity/Vol] 118 U/L Normal 40-135 [facility] ([place] Comment on above: Performed By: #### Smith RODRIGUEZ, CMP #### [address] [address] ALT [Catalytic activity/Vol] 25 U/L Normal 14-59 [facility] ([place] Comment on above: Performed By: #### Smith RODRIGUEZ, CMP #### [address] [address] AST [Catalytic activity/Vol] 22 U/L Normal 10-40 [facility] ([place] Comment on above: Performed By: #### Smith RODRIGUEZ, CMP #### [address] [address] Bili Total 0.5 mg/dL Normal 0.2-1.0 [facility] ([place] Comment on above: Result Comment: Use of this assay is not recommended for patients undergoing treatment with eltrombopag due to the potential for falsely elevated results. Performed By: #### Smith RODRIGUEZ, CMP #### [address] [address] BUN/Creatinine Ratio 26 ratio Normal 7-27 [facility] ([place] Comment on above: Performed By: #### Smith RODRIGUEZ, CMP #### [address] [address] Calcium [Mass/Vol] 9.6 mg/dL Normal 8.4-10.2 [facility] ([place]) Comment on above: Performed By: #### Smith RODRIGUEZ, CMP #### [address] [address] Chloride [Moles/Vol] 101 mmol/L Normal 98-107 [facility] ([place] Comment on above: Performed By: #### G FR, CMP #### [address] [address] CO2 [Moles/Vol] 26 mmol/L Normal 23-31 [facility] ([place] Comment on above: Performed By: #### G , CMP #### [address] [address] Creatinine [Mass/Vol] 0.86 mg/dL Normal 0.55-1.02 [facility] ([place]) Comment on above: Performed By: #### Smith RODRIGUEZ, CMP #### [address] [address] Electrolyte Balance 9.0 mEq/L Normal 4.0-15.0 [facility] ([place]) Comment on above: Performed By: #### Smith RODRIGUEZ, CMP #### [address] [address] Globulin 3.7 G/dL Normal [facility] ([place] Comment on above: Performed By: #### Smith RODRIGUEZ, CMP #### [address] [address] Glucose [Mass/Vol] 90 mg/dL Normal 80-115 [facility] ([place]) Comment on above: Performed By: #### G , CMP #### [address] [address] Potassium [Moles/Vol] 5.7 mmol/L High 3.5-5.1 [facility] ([place]) Comment on above: Performed By: #### G FR, CMP #### [address] [address] Sodium [Moles/Vol] 136 mmol/L Normal 136-145 [facility] ([place]) Comment on above: Performed By: #### G , CMP #### [address] [address] Total Protein 7.7 G/dL Normal 6.4-8.2 [facility]ly [facility], [facility] ([place] Comment on above: Performed By: #### G , CMP #### [address] [address] Urea nitrogen [Mass/Vol] 22 mg/dL High 7-18 [facility] ([place] Comment on above: Performed By: #### G , CMP #### [address] [address] .GFRon 11-15-2022 GFR 86 ml/min/1.73sqm Normal [facility] ([place] Comment on above: Result Comment: GFR Population [...] Performed By: #### G , CMP #### [address] [address] GFR Non- 71 ml/min/1.73sqm Normal [facility] ([place] Comment on above: Result Comment: GFR Population [...] Performed By: #### G FR, CMP #### [address] [address] CMPon 11-15-2022 Albumin Level 3.8 G/dL Normal 3.4-4.8 [facility] ([place] Comment on above: Performed By: #### V IDH, LIPID, CMP, GFR #### [address] [address] Albumin/Globulin [Mass ratio] 1.3 {ratio} Normal 1.1-2.5 [facility] ([place] Comment on above: Performed By: #### V IDH, LIPID, CMP, GFR #### [address] [address] ALP [Catalytic activity/Vol] 101 U/L Normal 40-135 [facility] ([place] Comment on above: Performed By: #### V IDH, LIPID, CMP, GFR #### [address] [address] ALT [Catalytic activity/Vol] 25 U/L Normal 14-59 [facility] ([place] Comment on above: Performed By: #### V IDH, LIPID, CMP, GFR #### [address] [address] AST [Catalytic activity/Vol] 23 U/L Normal 10-40 [facility] ([place] Comment on above: Performed By: #### V IDH, LIPID, CMP, GFR #### [address] [address] Bili Total 0.5 mg/dL Normal 0.2-1.0 [facility] ([place] Comment on above: Result Comment: Use of this assay is not recommended for patients undergoing treatment with eltrombopag due to the potential for falsely elevated results. Performed By: #### V IDH, LIPID, CMP, GFR #### [address] [address] BUN/Creatinine Ratio 25 ratio Normal 7-27 [facility]ly [facility], [facility] ([place] Comment on above: Performed By: #### V IDH, LIPID, CMP, GFR #### [address] [address] Calcium [Mass/Vol] 8.7 mg/dL Normal 8.4-10.2 [facility] ([place]) Comment on above: Performed By: #### V IDH, LIPID, CMP, GFR #### [address] [address] Chloride [Moles/Vol] 106 mmol/L Normal 98-107 [facility] ([place] Comment on above: Performed By: #### V IDH, LIPID, CMP, GFR #### [address] [address] CO2 [Moles/Vol] 29 mmol/L Normal 23-31 [facility] ([place] Comment on above: Performed By: #### V IDH, LIPID, CMP, GFR #### [address] [address] Creatinine [Mass/Vol] 0.80 mg/dL Normal 0.55-1.02 [facility] ([place]) Comment on above: Performed By: #### V IDH, LIPID, CMP, GFR #### [address] [address] Electrolyte Balance 7.0 mEq/L Normal 4.0-15.0 [facility] ([place]) Comment on above: Performed By: #### V IDH, LIPID, CMP, GFR #### [address] [address] Globulin 2.9 G/dL Normal [facility] ([place] Comment on above: Performed By: #### V IDH, LIPID, CMP, GFR #### [address] [address] Glucose [Mass/Vol] 80 mg/dL Normal 80-115 [facility] ([place] Comment on above: Performed By: #### V IDH, LIPID, CMP, GFR #### [address] [address] Potassium [Moles/Vol] 5.0 mmol/L Normal 3.5-5.1 [facility] ([place] Comment on above: Performed By: #### V IDH, LIPID, CMP, GFR #### [address] [address] Sodium [Moles/Vol] 142 mmol/L Normal 136-145 [facility] ([place]) Comment on above: Performed By: #### V IDH, LIPID, CMP, GFR #### [address] [address] Total Protein 6.7 G/dL Normal 6.4-8.2 [facility] ([place] Comment on above: Performed By: #### V IDH, LIPID, CMP, GFR #### [address] [address] Urea nitrogen [Mass/Vol] 20 mg/dL High 7-18 [facility] ([place] Comment on above: Performed By: #### V IDH, LIPID, CMP, GFR #### [address] [address] LIPIDon 11-15-2022 Cholesterol [Mass/Vol] 158 mg/dL Normal 0-200 [facility] ([place]) Comment on above: Result Comment: Chol esterol Reference Interval: Less than 200 Desirable 200-239 Borderline high risk 240 and above High risk Performed By: #### G FR, CMP #### [address] [address] Cholesterol in HDL [Mass/Vol] 53 mg/dL Normal 40-60 [facility] ([place] Comment on above: Performed By: #### G FR, CMP #### [address] [address] Cholesterol in LDL [Mass/Vol] 83 mg/dL Normal 0-130 [facility] ([place] Comment on above: Performed By: #### G FR, CMP #### [address] [address] Triglyceride [Mass/Vol] 111 mg/dL Normal 0-150 [facility] ([place]) Comment on above: Result Comment: Trig lyceride Reference Interval: Less than 150 Normal 150-199 Borderline high risk 200-499 High risk 500 or higher Very high risk Performed By: #### G FR, CMP #### [place] [id number] MALBRon 11-15-2022 U Creatinine 109.9 mg/dL Normal 28.0-117.0 [facility] ([place] Comment on above: Performed By: #### G FR, CMP #### [address] [address] U Microalb 7702 mcg/dL Normal [facility] ([place] Comment on above: Performed By: #### G FR, CMP #### [address] [address] U Ratio Alb/Cre 70 mcg/mg High 0-30 [facility] ([place] Comment on above: Performed By: #### G , CMP #### [place] [address] VIDHon 11-15-2022 Vit. D 25-Hydroxy 52.1 ng/mL Normal [facility] ([place] Comment on above: Result Comment: Inte rpretive Values Based on Total 25(OH) Vitamin D: Deficient <20 ng/mL Insufficient 20 - <30 ng/mL Sufficient 30-100 ng/mL Performed By: #### V IDH, LIPID, CMP, GFR #### [place] [address] LABORATORYOrdered By: Susan Quinones on 05-04-2022 Albumin [...] W/TOMOon 12-08-2016 MA MAMMOGRAM SCREENING BILATERAL W/TRAV ORIGINALFROM:[address] [address]Kfmzn: [phone] PROCEDURE FOR:FILIBERTO [id number] [place], [place] [address]Nncm: [phone]#: [id number]#: [id number]#: [id number]: 3Age: 61 TO:CANDY WOODSON [address] [place], [place] [address] #[id number] DIGITAL SCREENING MAMMOGRAM 3D/2D WITH CAD WITH MEDIOLATERAL OBLIQUE CRANIOCAUDAL: 12/08/2016Comparison is made to exams dated: 09/17/2015 mammogram and 09/09/2014 mammogram - [facility]. There are scattered fibroglandular elements in both [...] screening mammogram is recommended. HENNA padgett/cliff:12/09/2016 10:52:33 Retail Business Analyst: MANUEL COLIN RT(R)(M)(CT) [facility]: Normal BI-RADS 1&2 Mammogram BI-RADS: 2 Benign Normal [facility] Vital Signs Date Time Vital Sign Value Performing Clinician Jorge Alberto rutledge 08-19-2024 14:24-0400 Diastolic blood pressure 98 mm[Hg] Candy Chintan VEHICLE CALIBRATION ENGINEER-C Work Phone: [facility] 08-19-2024 14:24-0400 Heart rate 64 /min Candy Chintan VEHICLE CALIBRATION ENGINEER-C Work Phone: [facility] 08-19-2024 14:24-0400 Respiratory rate 18 /min Candy [place] VEHICLE CALIBRATION ENGINEER-C Work Phone: [facility] 08-19-2024 14:24-0400 SaO2% (BldA) [Mass fraction] 97 % Candy Chintan VEHICLE CALIBRATION ENGINEER-C Work Phone: [facility] 08-19-2024 14:24-0400 Systolic blood pressure 186 mm[Hg] Candy Chintan VEHICLE CALIBRATION ENGINEER-C Work Phone: [facility] 08-19-2024 12:32-0400 Body height 175.26 cm Candy Chintan VEHICLE CALIBRATION ENGINEER-C Work Phone: [facility] 08-19-2024 12:32-0400 Body mass index (BMI) [Ratio] 25.1 kg/m2 Candy Chintan VEHICLE CALIBRATION ENGINEER-C Work Phone: [facility] 08-19-2024 12:32-0400 Body weight 77.11 kg Candy [place] VEHICLE CALIBRATION ENGINEER-C Work Phone: [facility] 05-24-2024 10:29-0500 Body height 176 cm MAURIZIO PENA MD [facility] 05-24-2024 10:29-0500 Body weight 82.7 kg MAURIZIO PENA MD [facility] 05-24-2024 10:29-0500 Body weight 26.7 kg/m2 MAURIZIO PENA MD [facility] 05-24-2024 10:23-0500 Body height 176 cm MAURIZIO PENA MD [facility] 05-24-2024 10:23-0500 Body weight 82.7 kg MAURIZIO PENA MD [facility] 06-14-2023 08:52-0500 Body temperature 97.4 [degF] VEHICLE CALIBRATION ENGINEER-C Candy Woodson VEHICLE CALIBRATION ENGINEER Work Phone: [facility] 06-14-2023 08:52-0500 Diastolic blood pressure 96 mm[Hg] VEHICLE CALIBRATION ENGINEER-C Candy Woodson VEHICLE CALIBRATION ENGINEER Work Phone: [facility] 06-14-2023 08:52-0500 Heart rate 69 /min VEHICLE CALIBRATION ENGINEER-C Candy Woodson VEHICLE CALIBRATION ENGINEER Work Phone: [facility] 06-14-2023 08:52-0500 Respiratory rate 18 /min VEHICLE CALIBRATION ENGINEER-C Candy Woodson VEHICLE CALIBRATION ENGINEER Work Phone: [facility] 06-14-2023 08:52-0500 SaO2% (BldA) [Mass fraction] 98 % VEHICLE CALIBRATION ENGINEER-C Candy Woodson VEHICLE CALIBRATION ENGINEER Work Phone: [facility] 06-14-2023 08:52-0500 Systolic blood pressure 159 mm[Hg] VEHICLE CALIBRATION ENGINEER-C Candy Woodson VEHICLE CALIBRATION ENGINEER Work Phone: [facility] 06-14-2023 03:22-0500 Body mass index (BMI) [Ratio] 26 kg/m2 VEHICLE CALIBRATION ENGINEER-C Candy Woodson VEHICLE CALIBRATION ENGINEER Work Phone: [facility] 06-14-2023 03:22-0500 Body weight 79.8 kg VEHICLE CALIBRATION ENGINEER-C Candy Woodson VEHICLE CALIBRATION ENGINEER Work Phone: [facility] 06-12-2023 21:20-0500 Body height 175.26 cm VEHICLE CALIBRATION ENGINEER-C Candy Woodson VEHICLE CALIBRATION ENGINEER Work Phone: [facility] 06-12-2023 20:00-0500 Respiratory rate 16 /min VEHICLE CALIBRATION ENGINEER-C Candy Woodson VEHICLE CALIBRATION ENGINEER Work Phone: [facility] 06-12-2023 14:14-0500 Body mass index (BMI) [Ratio] 26.2 kg/m2 VEHICLE CALIBRATION ENGINEER-C Candy Woodson VEHICLE CALIBRATION ENGINEER Work Phone: [facility] 06-12-2023 14:14-0500 Body weight 82.8 kg VEHICLE CALIBRATION ENGINEER-C Candy Woodson VEHICLE CALIBRATION ENGINEER Work Phone: [facility] 06-12-2023 12:04-0500 Body height 177.8 cm VEHICLE CALIBRATION ENGINEER-C Candy Woodson VEHICLE CALIBRATION ENGINEER Work Phone: [facility] 06-12-2023 12:04-0500 Body temperature 96.6 [degF] VEHICLE CALIBRATION ENGINEER-C Candy Woodson VEHICLE CALIBRATION ENGINEER Work Phone: [facility] 06-12-2023 12:04-0500 Diastolic blood pressure 115 mm[Hg] VEHICLE CALIBRATION ENGINEER-C Candy Woodson VEHICLE CALIBRATION ENGINEER Work Phone: [facility] 06-12-2023 12:04-0500 Heart rate 108 /min VEHICLE CALIBRATION ENGINEER-C Candy Woodson VEHICLE CALIBRATION ENGINEER Work Phone: [facility] 06-12-2023 12:04-0500 SaO2% (BldA) [Mass fraction] 94 % VEHICLE CALIBRATION ENGINEER-C Candy Woodson VEHICLE CALIBRATION ENGINEER Work Phone: [facility] 06-12-2023 12:04-0500 Systolic blood pressure 164 mm[Hg] VEHICLE CALIBRATION ENGINEER-C Candy Woodson VEHICLE CALIBRATION ENGINEER Work Phone: [facility] 06-07-2023 11:00-0500 Body temperature 97.6 [degF] VEHICLE CALIBRATION ENGINEER-C Candy Woodson VEHICLE CALIBRATION ENGINEER Work Phone: [facility] 06-07-2023 11:00-0500 Diastolic blood pressure 87 mm[Hg] VEHICLE CALIBRATION ENGINEER-C Candy Woodson VEHICLE CALIBRATION ENGINEER Work Phone: [facility] 06-07-2023 11:00-0500 Heart rate 87 /min VEHICLE CALIBRATION ENGINEER-C Candy Woodson VEHICLE CALIBRATION ENGINEER Work Phone: [facility] 06-07-2023 11:00-0500 Respiratory rate 18 /min VEHICLE CALIBRATION ENGINEER-C Candy Woodson VEHICLE CALIBRATION ENGINEER Work Phone: [facility] 06-07-2023 11:00-0500 SaO2% (BldA) [Mass fraction] 97 % VEHICLE CALIBRATION ENGINEER-C Candy Woodson VEHICLE CALIBRATION ENGINEER Work Phone: [facility] 06-07-2023 11:00-0500 Systolic blood pressure 128 mm[Hg] VEHICLE CALIBRATION ENGINEER-C Candy Woodson VEHICLE CALIBRATION ENGINEER Work Phone: [facility] 06-06-2023 11:13-0500 Body mass index (BMI) [Ratio] 26.4 kg/m2 VEHICLE CALIBRATION ENGINEER-C Candy Woodson VEHICLE CALIBRATION ENGINEER Work Phone: [facility] 06-06-2023 11:13-0500 Body weight 82.32 kg VEHICLE CALIBRATION ENGINEER-C Candy Woodson VEHICLE CALIBRATION ENGINEER Work Phone: [facility] 05-31-2023 13:29-0500 Body height 176.53 cm VEHICLE CALIBRATION ENGINEER-C Candy Woodson VEHICLE CALIBRATION ENGINEER Work Phone: [facility] 05-27-2023 07:44-0500 Body temperature 97.6 [degF] VEHICLE CALIBRATION ENGINEER-C Candy Woodson VEHICLE CALIBRATION ENGINEER Work Phone: [facility] 05-27-2023 07:44-0500 Diastolic blood pressure 94 mm[Hg] VEHICLE CALIBRATION ENGINEER-C Candy Woodson VEHICLE CALIBRATION ENGINEER Work Phone: [facility] 05-27-2023 07:44-0500 Heart rate 63 /min VEHICLE CALIBRATION ENGINEER-C Candy Woodson VEHICLE CALIBRATION ENGINEER Work Phone: [facility] 05-27-2023 07:44-0500 Respiratory rate 16 /min VEHICLE CALIBRATION ENGINEER-C Candy Woodson VEHICLE CALIBRATION ENGINEER Work Phone: [facility] 05-27-2023 07:44-0500 SaO2% (BldA) [Mass fraction] 98 % VEHICLE CALIBRATION ENGINEER-C Candy Woodson VEHICLE CALIBRATION ENGINEER Work Phone: [facility] 05-27-2023 07:44-0500 Systolic blood pressure 162 mm[Hg] VEHICLE CALIBRATION ENGINEER-C Candy Woodson VEHICLE CALIBRATION ENGINEER Work Phone: [facility] 05-26-2023 08:02-0500 Body mass index (BMI) [Ratio] 25.4 kg/m2 VEHICLE CALIBRATION ENGINEER-C Candy Woodson VEHICLE CALIBRATION ENGINEER Work Phone: [facility] 05-26-2023 08:02-0500 Body weight 78.1 kg VEHICLE CALIBRATION ENGINEER-C Candy Velasquezpkins VEHICLE CALIBRATION ENGINEER Work Phone: [facility] Encounters Encounter Date Encounter Type Care Provider Facility Start: 04-09-2025 End: 04-09-2025 ambulatory CANDY WOODSON MANAGER RESPIRATORY CARE - INFORMATICS SCIENTIST Facility:[facility] Start: 04-09-2025 End: 04-09-2025 Patient encounter procedure CANDY ELLISKINS MANAGER RESPIRATORY CARE - INFORMATICS SCIENTIST [facility] Start: 12-26-2024 End: 12-26-2024 ambulatory CANDY WOODSON MANAGER RESPIRATORY CARE - INFORMATICS SCIENTIST Facility:[facility] Start: 12-26-2024 End: 12-26-2024 Patient encounter procedure CANDY WOODSON MANAGER RESPIRATORY CARE - INFORMATICS SCIENTIST [facility] Start: 12-03-2024 End: 12-03-2024 ambulatory CANDY WOODSON MANAGER RESPIRATORY CARE - INFORMATICS SCIENTIST Facility:[facility] Start: 12-03-2024 End: 12-03-2024 Patient encounter procedure CANDY WOODSON MANAGER RESPIRATORY CARE - INFORMATICS SCIENTIST [facility] Start: 08-28-2024 Encounter for other preprocedural examination Danielle Castillo [facility] Start: 08-19-2024 End: 08-19-2024 ambulatory Candy Woodson VEHICLE CALIBRATION ENGINEER-C Work Phone: [facility] Work Phone: Start: 08-19-2024 End: 08-19-2024 Patient encounter procedure Danielle Castillo PA-C -Radiology, [facility] Work Phone: Start: 08-19-2024 End: 08-19-2024 ambulatory Candy Woodson VEHICLE CALIBRATION ENGINEER Facility:[facility] Start: 08-16-2024 End: 08-20-2024 ambulatory CANDY WOODSON MANAGER RESPIRATORY CARE - INFORMATICS SCIENTIST Facility:[facility] Start: 07-15-2024 ambulatory HELIO CASTILLO Facility:A Start: 07-05-2024 ambulatory CANDY SANDOVAL MANAGER RESPIRATORY CARE - INFORMATICS SCIENTIST Facility:[facility] Start: 06-14-2024 End: 06-14-2024 ambulatory MAURIZIO PENA MD Facility:[facility] Start: 06-14-2024 End: 06-14-2024 Patient encounter procedure MAURIZIO PENA MD [facility] Start: 06-13-2024 ambulatory CANDY Prabhakar VELASQUEZMimi JAIME MANAGER RESPIRATORY CARE - INFORMATICS SCIENTIST Facility:[facility] Start: 05-30-2024 End: 05-30-2024 ambulatory CANDY Radford CHINTAN MANAGER RESPIRATORY CARE - INFORMATICS SCIENTIST Facility:[facility] Start: 05-30-2024 End: 05-30-2024 Patient encounter procedure CANDY Prabhakar VELASQUEZCHINTAN MANAGER RESPIRATORY CARE - INFORMATICS SCIENTIST [facility] Start: 05-24-2024 End: 05-24-2024 ambulatory MAURIZIO PENA MD Facility:[facility] Start: 05-24-2024 End: 05-24-2024 SAME DAY STAY MARUIZIO PENA MD [facility] Start: 04-19-2024 End: 04-19-2024 ambulatory CANDY WOODSON MANAGER RESPIRATORY CARE - INFORMATICS SCIENTIST Facility:[facility] Start: 04-19-2024 End: 04-19-2024 Patient encounter procedure MAURIZIO PENA MD [facility] Start: 04-15-2024 End: 04-15-2024 ambulatory CANDY WOODSON MANAGER RESPIRATORY CARE - INFORMATICS SCIENTIST Facility:[facility] Start: 04-15-2024 End: 04-15-2024 Patient encounter procedure CANDY WOODSON MANAGER RESPIRATORY CARE - INFORMATICS SCIENTIST [facility] Start: 04-08-2024 End: 05-22-2024 Physical therapy management CANDY WOODSON MANAGER RESPIRATORY CARE - INFORMATICS SCIENTIST [facility] Start: 10-20-2023 End: 10-20-2023 ambulatory Candy Woodson VEHICLE CALIBRATION ENGINEER Facility:[facility] Start: 10-06-2023 End: 10-07-2023 ambulatory CANDY WOODSON MANAGER RESPIRATORY CARE - INFORMATICS SCIENTIST Facility: Start: 10-06-2023 End: 10-06-2023 Patient encounter procedure CANDY WOODSON MANAGER RESPIRATORY CARE - INFORMATICS SCIENTIST [facility] Start: 09-29-2023 End: 09-29-2023 ambulatory Candy Woodson VEHICLE CALIBRATION ENGINEER Facility:[facility] Start: 06-22-2023 End: 06-22-2023 ambulatory VEHICLE CALIBRATION ENGINEER-C Candy Woodson VEHICLE CALIBRATION ENGINEER Work Phone: [facility] Work Phone: Start: 06-22-2023 End: 06-22-2023 Departed Referred VEHICLE CALIBRATION ENGINEER-C Candy Woodson VEHICLE CALIBRATION ENGINEER Work Phone: [facility] Start: 06-22-2023 Registered Referred VEHICLE CALIBRATION ENGINEER-C Sai Woodson VEHICLE CALIBRATION ENGINEER Work Phone: [facility] Start: 06-15-2023 End: 06-15-2023 ambulatory VEHICLE CALIBRATION ENGINEER-C Candy Woodson VEHICLE CALIBRATION ENGINEER Work Phone: [facility] Work Phone: Start: 06-15-2023 End: 06-15-2023 Departed Referred VEHICLE CALIBRATION ENGINEER-C Candy Velasquezpkins VEHICLE CALIBRATION ENGINEER Work Phone: [facility] Start: 06-14-2023 Non-patient / Non-visit VEHICLE CALIBRATION ENGINEER-C Howard Woodson VEHICLE CALIBRATION ENGINEER Work Phone: [facility] Work Phone: Start: 06-13-2023 Non-patient / Non-visit VEHICLE CALIBRATION ENGINEER-C Howard Woodson VEHICLE CALIBRATION ENGINEER Work Phone: [facility] Work Phone: Start: 06-12-2023 Evaluation and manag ement of inpatient VEHICLE CALIBRATION ENGINEER-C Candy Woodson VEHICLE CALIBRATION ENGINEER [facility] Work Phone: Start: 06-12-2023 observation encounter VEHICLE CALIBRATION ENGINEER-C Antony kim Chong Chintan VEHICLE CALIBRATION ENGINEER Work Phone: [facility] Work Phone: Start: 06-12-2023 End: 06-14-2023 Evaluation and management of inpatient VEHICLE CALIBRATION ENGINEER-C Candy Chintan VEHICLE CALIBRATION ENGINEER [facility] Work Phone: Start: 06-12-2023 End: 06-14-2023 observation encounter VEHICLE CALIBRATION ENGINEER-C Candy Chongalvaro VelasquezChintan VEHICLE CALIBRATION ENGINEER Work Phone: [facility] Work Phone: Start: 06-12-2023 Non-patient / Non-visit VEHICLE CALIBRATION ENGINEER-C Howard Woodson VEHICLE CALIBRATION ENGINEER Work Phone: [facility] Work Phone: Start: 06-06-2023 Non-patient / Non-visit VEHICLE CALIBRATION ENGINEER-C Howard Woodson VEHICLE CALIBRATION ENGINEER Work Phone: [facility] Work Phone: Start: 06-02-2023 Non-patient / Non-visit VEHICLE CALIBRATION ENGINEER-C R adeel Velasquezpkins VEHICLE CALIBRATION ENGINEER Work Phone: [facility] Work Phone: Start: 05-29-2023 Non-patient / Non-visit VEHICLE CALIBRATION ENGINEER-C R adeel Velasquezpkins VEHICLE CALIBRATION ENGINEER Work Phone: [facility] Work Phone: Start: 05-27-2023 End: 06-07-2023 Evaluation and management of inpatient VEHICLE CALIBRATION ENGINEER-C Candy Velasquezpkins VEHICLE CALIBRATION ENGINEER [facility] Start: 05-26-2023 Non-patient / Non-visit VEHICLE CALIBRATION ENGINEER-C R adeel Velasquezpkins VEHICLE CALIBRATION ENGINEER Work Phone: [facility] Work Phone: Start: 05-25-2023 Non-patient / Non-visit VEHICLE CALIBRATION ENGINEER-C R adeel Velasquezpkins VEHICLE CALIBRATION ENGINEER Work Phone: [facility] Work Phone: Start: 05-24-2023 Non-patient / Non-visit VEHICLE CALIBRATION ENGINEER-C R adeel Velasquezpkins VEHICLE CALIBRATION ENGINEER Work Phone: [facility] Work Phone: Start: 05-22-2023 Non-patient / Non-visit VEHICLE CALIBRATION ENGINEER-C R adeel Velasquezpkins VEHICLE CALIBRATION ENGINEER Work Phone: [facility] Work Phone: Start: 05-18-2023 Non-patient / Non-visit VEHICLE CALIBRATION ENGINEER-C R ichfrank [place] VEHICLE CALIBRATION ENGINEER Work Phone: [facility] Work Phone: Start: 05-17-2023 Non-patient / Non-visit VEHICLE CALIBRATION ENGINEER-C R ichfrank [place] VEHICLE CALIBRATION ENGINEER Work Phone: [facility] Work Phone: Start: 05-16-2023 Non-patient / Non-visit VEHICLE CALIBRATION ENGINEER-C Howard Woodson VEHICLE CALIBRATION ENGINEER Work Phone: [facility] Work Phone: Start: 05-15-2023 End: 05-27-2023 Evaluation and management of inpatient VEHICLE CALIBRATION ENGINEER-C Candy Woodson VEHICLE CALIBRATION ENGINEER [facility] Phone[facility] [facility] Work Phone: Start: 03-21-2023 End: 03-22-2023 ambulatory CNADY WOODSON MANAGER RESPIRATORY CARE - INFORMATICS SCIENTIST Facility:B Start: 03-21-2023 End: 03-21-2023 Patient encounter procedure CANDY WOODSON MANAGER RESPIRATORY CARE - INFORMATICS SCIENTIST [facility] Start: 03-13-2023 End: 03-14-2023 ambulatory CANDY WOODSON MANAGER RESPIRATORY CARE - INFORMATICS SCIENTIST Facility:B Start: 11-15-2022 End: 11-16-2022 ambulatory CANDY WOODSON MANAGER RESPIRATORY CARE - INFORMATICS SCIENTIST Facility:B Start: 11-14-2022 End: 11-14-[address] LAWANDA VÁSQUEZ MD Facility:B Start: 06-28-2022 End: 06-28-2022 Patient encounter procedure CANDY WOODSON MANAGER RESPIRATORY CARE - INFORMATICS SCIENTIST [facility] Start: 05-04-2022 End: 05-04-2022 Patient encounter procedure CANDY WOODSON MANAGER RESPIRATORY CARE - INFORMATICS SCIENTIST [facility] Start: 04-22-2021 End: 04-22-2021 Patient encounter procedure CANDY WOODSON MANAGER RESPIRATORY CARE - INFORMATICS SCIENTIST [facility] Start: 08-11-2020 End: 08-11-2020 Discharged Recurring [facility] Start: 12-08-2016 End: 12-09-2016 Ambulatory PHY WO ID REFERRING Facility:[facility] Procedures Date Procedure Procedure Detail Performing Clinician Start: 08-19-2024 Computerized axial tomography of lumbar spine with contrast Candy Woodson VEHICLE CALIBRATION ENGINEER-C Work Phone: Start: 08-19-2024 Myelogram Candy To mpkins VEHICLE CALIBRATION ENGINEER-C Work Phone: Start: 05-24-2024 Case Cancelled in me Day 1 MAURIZIO PENA MD Comment on above: auto-populated from documented surgical case Start: 06-14-2023 Viral antigen assay VEHICLE CALIBRATION ENGINEER- C Candy Woodson VEHICLE CALIBRATION ENGINEER Work Phone: Start: 06-13-2023 Nucleic acid assay VEHICLE CALIBRATION ENGINEER-C Candy Woodson VEHICLE CALIBRATION ENGINEER Work Phone: Start: 06-12-2023 Urine culture VEHICLE CALIBRATION ENGINEER-C Rich frank Woodson VEHICLE CALIBRATION ENGINEER Work Phone: Start: 06-06-2023 Viral antigen assay VEHICLE CALIBRATION ENGINEER- C Candy Woodson VEHICLE CALIBRATION ENGINEER Work Phone: Start: 05-25-2023 Viral antigen assay VEHICLE CALIBRATION ENGINEER- C Candy Woodson VEHICLE CALIBRATION ENGINEER Work Phone: Start: 05-05-2023 Lumbar spine structu re (body structure) MAURIZIO PENA MD Start: 05-02-2017 Bone density scan SAI GEMMA WOODSON MANAGER RESPIRATORY CARE - INFORMATICS SCIENTIST Start: 06-05-2011 Colonoscopy CANDY TO MPKINS MANAGER RESPIRATORY CARE - INFORMATICS SCIENTIST Comment on above: 2021 Start: 06-05-1985 Colposcopy CANDY TO MPKINS MANAGER RESPIRATORY CARE - INFORMATICS SCIENTIST Start: 06-05-1961 Appendectomy CANDY TO MPKINS MANAGER RESPIRATORY CARE - INFORMATICS SCIENTIST History of excision of lamina of lumbar vertebra for decompression of spinal cord Hx of decompressive lumbar laminectomy VEHICLE CALIBRATION ENGINEER-C Candy Woodson VEHICLE CALIBRATION ENGINEER Work Phone: Comment on above: With fusion Plan of Treatment Date Care Activity Detail Author Start: 06-15-2023 Blood chemistry [facility] Start: 06-14-2023 Patient discharge [facility] Start: 06-13-2023 Measurement of occult blood in stool specimen using immunoassay [facility] Start: 06-13-2023 Protein measurement [facility] Start: 06-12-2023 Following clinical pathway protocol [facility] Start: 06-12-2023 Assessment of risk of venous thromboembolism [facility] Start: 06-12-2023 Fall prevention [facility] Start: 06-12-2023 Incentive spirometry [facility] Start: 06-12-2023 Inhalation therapy procedure [facility] Start: 06-12-2023 Insertion of catheter into peripheral vein [facility] Start: 06-12-2023 Introduction of urinary catheter [facility] Start: 06-12-2023 Measuring intake and output [facility] Start: 06-12-2023 Oxygen therapy [facility] Start: 06-12-2023 Providing care according to standard [facility] Start: 06-12-2023 Provision of activity privileges [facility] Start: 06-12-2023 Referral to occupational therapist [facility] Start: 06-12-2023 Referral to service [facility] Start: 06-12-2023 Tobacco use cessation education [facility] Start: 06-12-2023 [facility] Start: 06-12-2023 Verification routine [facility] Start: 06-12-2023 Admission procedure [facility] Start: 06-12-2023 Hospital admission, emergency, from emergency room, medical nature [facility] Start: 06-12-2023 Clostridioides difficile DNA [Presence] in Unspecified specimen by VIKASH with probe detection [facility] Start: 06-12-2023 Enteric precautions [facility] Start: 06-12-2023 Referral to occupational therapist [facility] Start: 06-12-2023 Referral to service [facility] Start: 06-12-2023 [facility] Start: 06-12-2023 Bacteria identified in Urine by Culture Urine Culture [facility] Start: 06-12-2023 Respiratory Panel (PCR) Respiratory Panel (PCR) [facility] Start: 06-06-2023 Patient discharge [facility] Start: 06-06-2023 Development of care plan [facility] Start: 05-31-2023 [facility] Start: 05-31-2023 Removal of device [facility] Start: 05-28-2023 Developing a treatment plan [facility] Start: 05-28-2023 Development of care plan [facility] Start: 05-28-2023 End: 05-29-2023 [facility] Start: 05-27-2023 Recommendation to continue with treatment [facility] Start: 05-27-2023 Admission procedure [facility] Start: 05-27-2023 Measuring intake and output [facility] Start: 05-27-2023 Patient referral to dietitian [facility] Start: 05-27-2023 Referral to occupational therapist [facility] Start: 05-27-2023 Referral to service [facility] Start: 05-27-2023 Vital signs measurements [facility] Start: 05-27-2023 [facility] Start: 05-27-2023 Referral to service [facility] Start: 05-27-2023 Referral to occupational therapist [facility] Start: 05-27-2023 Provision of activity privileges [facility] Start: 05-26-2023 Patient discharge [facility] Start: 05-15-2023 Recommendation to continue with treatment [facility] Start: 05-15-2023 Referral to service [facility] Start: 05-15-2023 Urinary bladder training [facility] Start: 05-15-2023 Wound care [facility] Start: 05-15-2023 Admission procedure [facility] Start: 05-15-2023 Patient referral to dietitian [facility] Start: 05-15-2023 Referral to occupational therapist [facility] Start: 05-15-2023 Vital signs measurements [facility] Start: 05-15-2023 End: 05-15-2023 [facility] Gastrointestinal pat [facility] panel - Stool by VIKASH with probe detection [facility] Giardia lamblia Ag [Presence] in Stool by Immunoassay [facility] Lactoferrin [Presenc e] in Stool by Immunoassay [facility] Patient Education [facility] Work Phone: Patient referral [facility] Work Phone: Respiratory pathogen s DNA and RNA panel - Respiratory specimen by VIKASH with probe detection [facility] Immunizations Immunization Date Immunization Notes Care Provider Rogelio carreon 03-19-2024 influenza, high dose seasonal, preservative-free; Translations: [Fluad PF Prefilled Syringe ] CANDY WOODSON MANAGER RESPIRATORY CARE - INFORMATICS SCIENTIST [facility] 05-31-2023 Covid (Spikevax) VEHICLE CALIBRATION ENGINEER-C Rolando Woodson VEHICLE CALIBRATION ENGINEER Work Phone: [facility] 03-06-2023 influenza, injectabl e, quadrivalent, preservative free VEHICLE CALIBRATION ENGINEER-C Candy Woodson VEHICLE CALIBRATION ENGINEER Work Phone: [facility] 03-06-2023 influenza, high dose seasonal, preservative-free; Translations: [Fluad Quadrivalent PF ] CANDY WOODSON MANAGER RESPIRATORY CARE - INFORMATICS SCIENTIST [facility] 05-05-2022 Covid Pfizer Bivalen t Booster VEHICLE CALIBRATION ENGINEER-C Candy Woodson VEHICLE CALIBRATION ENGINEER Work Phone: [facility] 03-29-2022 influenza, high dose seasonal, preservative-free CANDY WOODSON MANAGER RESPIRATORY CARE - INFORMATICS SCIENTIST [facility] 05-11-2021 influenza, high dose seasonal, preservative-free; Translations: [Fluad Quadrivalent PF ] CANDY WOODSON MANAGER RESPIRATORY CARE - INFORMATICS SCIENTIST [facility] 04-08-2021 SARS-CoV-2 mRNA (tozinameran) vaccine CANDY WOODSON MANAGER RESPIRATORY CARE - INFORMATICS SCIENTIST [facility] Comment on above: Result Comment: 2020: [id number] 09-01-2020 Covid (Pfizer) [facility] Work Phone: 08-11-2020 Covid (Pfizer) [facility] Work Phone: Comment on above: Result Comment: 2020: [id number] 2020 influenza, injectabl e, quadrivalent, preservative free; Translations: [Fluarix PF Quadrivalent ] CANDY ELLISKINS MANAGER RESPIRATORY CARE - INFORMATICS SCIENTIST [facility] 04-25-2019 influenza, injectabl e, quadrivalent, preservative free; Translations: [Fluarix PF Quadrivalent ] CANDY WOODSON MANAGER RESPIRATORY CARE - INFORMATICS SCIENTIST [facility] Comment on above: Early/Late Reason: O ther: 08-21-2018 pneumococcal conjuga te vaccine, 13 valent CANDY WOODSON MANAGER RESPIRATORY CARE - INFORMATICS SCIENTIST [facility] 04-17-2018 influenza virus vacc ine, unspecified formulation CANDY WOODSON MANAGER RESPIRATORY CARE - INFORMATICS SCIENTIST [facility] 04-20-2017 influenza virus vacc ine, unspecified formulation CANDY WOODSON MANAGER RESPIRATORY CARE - INFORMATICS SCIENTIST [facility] 06-09-2016 zoster vaccine, live CANDY WOODSON MANAGER RESPIRATORY CARE - INFORMATICS SCIENTIST [facility] 05-10-2016 influenza virus vacc ine, unspecified formulation CANDY WOODSON MANAGER RESPIRATORY CARE - INFORMATICS SCIENTIST [facility] 05-10-2016 pneumococcal polysaccharide vaccine, 23 valent CANDY WOODSON MANAGER RESPIRATORY CARE - INFORMATICS SCIENTIST [facility] 08-29-2013 tetanus toxoid, redu montrell diphtheria toxoid, and acellular pertussis vaccine, adsorbed CANDY WOODSON MANAGER RESPIRATORY CARE - INFORMATICS SCIENTIST [facility] Payers Date Payer Category Payer Private Health Insurance [id number] 2023 Unknown [id number] 2023 Self-pay [id number] 2021 Unknown [id number] 2019 Medicare [id number] 2018 Medicare [id number] 2004 Unknown [id number] 1953 Unknown [id number] 2.16.8 40.1.410519.3.579.2.627 1953 Unknown [id number] 2.16.8 40.1.556596.3.579.2.62 1953 Unknown [id number] 2.16.8 40.1.521529.3.579.2.627 1953 Unknown [id number] 2.16.8 40.1.815030.3.579.2.627 1953 Unknown [id number] 2.16.8 40.1.264366.3.579.2.627 1953 Unknown [id number] 2.16.8 40.1.411111.3.579.2.627 1953 Unknown [id number] 2.16.8 40.1.405023.3.579.2.62 1953 Unknown [id number] 2.16. 840.1.530927.3.579.2.62 1953 Unknown [id number] 2.16. 840.1.182821.3.579.2. 1953 Unknown [id number] 2.16. 840.1.793250.3.579.2.62 1953 Unknown [id number] 2.16.8 40.1.355222.3.579.2. 1955 Unknown [id number] 2.16.8 40.1.631835.3.579.2. 1953 Unknown [id number] 2.16.8 40.1.423840.3.579.2. 1953 Unknown [id number] 2.16.8 40.1.891219.3.579.2.62 1953 Unknown [id number] 2.16.8 40.1.741030.3.579.2. 1953 Unknown [id number] 2.16.8 40.1.236572.3.579.2.627 1953 Unknown [id number] 2.16.8 40.1.042107.3.579.2.627 Unknown [id number] Unknown [id number] 2.16.8 40.1.306328.3.579.2.462 Unknown [id number] 2.16.8 40.1.477882.3.579.2.462 Unknown [id number] 2.16.8 40.1.140906.3.579.2.462 Social History Date Type Detail Facility [facility] Work Phone: Start: 1955 Sex Assigned At Female [facility] Work Phone: Start: 04-23-2019 End: 12-10-2024 Heavy tobacco smoker (finding) [facility] Comment on above: Daily smoke exposure Start: 05-27-2023 End: 06-12-2023 Tobacco smoking status NHIS Unknown if ever smoked [facility] Start: 11-28-2018 End: 08-28-2024 Sex Female (finding) [facility] Start: 06-12-2023 Tobacco smoking stat us NHIS Current some day smoker [facility] Goals Date Patient Goal Desired Activity /State Functional Status Date Assessment Result Facility 05-24-2024 Functional Status Up to chair [facility] 06-14-2023 Functional status Ambulates [facility] Work Phone: 06-07-2023 Functional status Up ad olga [facility] Work Phone: 06-06-2023 Functional status Tolerates Activity Well [facility] Work Phone: 05-27-2023 Functional status Ambulates [facility] Work Phone: 05-26-2023 Functional status Tolerates Activity Well [facility] Work Phone: Mental Status Date Assessment Result Facility 08-19-2024 Cognitive function Level Of Cons ciousness Awake;Alert;Appropriate [facility] Work Phone: 08-19-2024 Cognitive function Patient Orien tation Person;Place;Time [facility] Work Phone: 05-24-2024 Mental Status Orientation Oriented x 4 [facility] 06-13-2023 Cognitive function Voice/Name [facility] Work Phone: 06-07-2023 Cognitive function Voice/Name [facility] Work Phone: 06-03-2023 Cognitive function Appropriate;Cooperdeepthi gmaa [facility] Work Phone: 05-27-2023 Cognitive function Voice/Name [facility] Work Phone: Clinical Notes 05-29-2023 to 08-19-2024 Note Date & Type Note Facility 08-19-2024 Radiology Diagnostic study note [facility] Imaging Services [address] [place] [address] Spine Lumbar WITH Contrast MR#: [id number] Acct: [id number] Name: FILIBERTO VALDIVIA Rep #: [id number] : 1955 F 69 From: Doc Pitts MD PCP: Candy Woodson NP-C Status: REG CLI Study:Spine Lumbar WITH Contrast Date of Exam : 08/19/24 Exam# [id number] Ordering Dr: Danielle Hong PA-C PROCEDURE: SPINE [...] worse at the L5-S1 level. Reading Location: [facility] CC: SCOOTER Woodson; HELIO Castillo ~ Environmental Programs Specialist: Signed [facility] 08-19-2024 Radiology Diagnostic study note [facility] Imaging Services [address] [place] [address] Lumbar Myelogram MR#: [id number] Acct: [id number] Name: FILIBERTO VALDIVIA Rep #: [id number] : 1955 F 69 From: Doc Pitts MD PCP: SCOOTER Newton Status: REG CLI Study:Lumbar Myelogram Date of Exam: Exam# [id number] Ordering Dr: Danielle Hong PA-C PROCEDURE: LUMBAR [...] well. CT we will follow. Reading Location: [place] [address] CC: SCOOTER Woodson; HELIO Castillo ~ Environmental Programs Specialist: Signed [facility] 06-14-2024 Note Exam Date Time Procedure Performing Provider Status 06/14/24 11:44 AM XR Hip 2-3 Views Left CURT RAPHAEL MD; Auth (Verified) [id number] ORIGINAL EXAMINATION: 2 XRAY VIEWS OF THE [...] remarkable for mild enthesopathic spur formation. IMPRESSION: Dalz-ij-maqnkxve osteoarthritis of the left hip. Interpreted by: Curt Raphael MD Preliminary Report By: Curt Raphael MD Electronically signed By Curt Raphael MD Dictated Date: 06/15/2024 12:22:47 AM Prelim Date: 06/15/2024 12:24:31 AM Sign Date: 06/15/2024 12:24:31 AM Ordering Provider: MAURIZIO PENA [facility]12-26-2024 Note* Exam Date Time Procedure Performing Provider Status 05/30/24 9:57 AM US Breast Right Limited FELISA DE LEON MD; Auth (Verified) [id number] ORIGINAL FROM: [address] [address] PROCEDURE FOR: FILIBERTO CORMIER [address] [place] [address] Home: PID#: [id number] Exam#: [id number] : 1955 Age: 69 TO: CANDY WOODSON MANAGER RESPIRATORY CARE [facility] [address] [place] [address] Fax: NO FAX EXAMINATION: ULTRASOUND OF THE [...] addition to annual mammographic screening per the [employer]. BIRADS: BI-RADS: 3: Probably Benign [...] CANDY WOODSON CLINICAL: PALPABLE LUMP RIGHT BREAST. Retail Business Analyst: TRACEY INIGUEZ RT(R)(M) RDMS letter sent: Probably Benign BI-RADS 3 Ultrasound BI-RADS: 3 Probably benign [facility]12-26-2024 Note* Exam Date Time Procedure Performing Provider Status 05/30/24 9:04 AM MA Mammo Diagnostic Bilateral w/FELISA Cifuentes MD; Auth (Verified) [id number] ORIGINAL FROM: [facility] [address] [place] [id number] PROCEDURE FOR: FILIBERTO [address] CORMIER [address] [place] [address] Home: PID#: [id number] Exam#: [id number] : 1955 Age: 69 TO: CANDY WOODSON MANAGER RESPIRATORY CARE INFORMATICS SCIENTIST [address] [place] [phone] Fax: NO FAX EXAMINATION: DIAGNOSTIC BILATERAL MAMMOGRAM [...] addition to annual mammographic screening per the [employer]. BIRADS: BI-RADS: 0: Incomplete: Need [...] CANDY WOODSON CLINICAL: PALPABLE LUMP RIGHT BREAST. Retail Business Analyst: MC YAÑEZ RT(R)(M)(CT) letter sent: Abnormal-Needs additional work up BI-RADS 0 Mammogram BI-RADS: 0 Indeterminate [facility]11-15-2024 Note ORIGINAL EXAMINATION: AP and lateral 3 [...] Sign Date: 04/19/2024 2:52:45 PM Ordering Provider: [facility]11-15-2024 Note ORIGINAL EXAMINATION: 2 XRAY VIEWS OF [...] Sign Date: 04/19/2024 2:46:28 PM Ordering Provider: [facility]01-09-2024 Progress note Author Adán Khalil [facility] June 13, 2023 5:05pm Note Date/Time June 13, 2023 10 :26am [facility] Medical Records Department [address] [place] [address] Progress Note - Hospitalist 06/13/23 1025 MR#: [id number] Acct: [id number] Name: FILIBERTO VALDIVIA Rep #: [id number] : 1955 68 From: Adán Radford PCP: SCOOTER Newton Sta tus:ADM TESS Location: [address] Reason for Visit Reason for Visit: [...] 78.9 H, Lymph % (Auto) 12.3 L, [place] % (Auto) 7.7, Eos % (Auto) 0.4, [...] Sl. Cloudy, Urine pH 5.0, Ur Specific [place] 1.020, Urine Protein 100 H, Urine Glucose [...] % (Auto) 64.9, Lymph % (Auto) 21.1, Prairie% (Auto) 10.3 H, Eos % (Auto) 2.7, [...] surgery of hemilaminectomy in May 2023 by [facility]. #1. 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 Charges/Coding Visit Charges Inpatient E&M: 89973 Subs Hosp L2 06/13/23 8637 <Electronically signed by Adán Khalil MD> Cosigner Signature (if applicable): CC: ~ Signed [facility] Work Phone: 1(597) 578-747501-09-2024 Discharge summary Author Ash Geller [facility] June 13, 2023 3:19pm Note Date/Time June 12, 2023 12 :29pm [facility] Medical Records Department [address] [place] [address] Emergency Department Summary 06/12/23 MR#: [id number] Acct: [id number] Name: FILIBERTO VALDIVIA Rep #: [id number] : 1955 68 From: Ash Cartagena PCP: SCOOTER Newton tus:ADM TESS Location: [place] [address]-1 HPI <SCOOTER Valdes - Last Filed: 06/12/23 [...] any antibiotics. She is currently ongabapentin and [place]. She states that she has 3-4 loose [...] occupational status: retired current occupation: Worked at [employer] pets and animals: Yes pets and animals: [...] 78.9 H Lymph % (Auto) 12.3 L [place] % (Auto) 7.7 Eos % (Auto) 0.4 [...] Sl. Cloudy Urine pH 5.0 Ur Specific [place] 1.020 Urine Protein 100 H Urine Glucose [...] over self-pay options with the patient. The fpc/rehab facility was unable to have a bed until tomorrow. I willwithout call for admission for observation for the patient. The patient feels unsafe going home and feels that she needs rehab. <Dr. Ash Geller, DO - Last Filed: 06/12/23 15:35> [facility] Narrative Medical decision making narrative: I have [...] feel she is safe to go home. forestry workers was in to evaluate the patient and states that the patient does qualify for rehab. She contacted the TCU. They stated that patient would need a PT/OT evaluation before they can accept her into their unit. forestry workers is checking to see if this can [...] 78.9 H Lymph % (Auto) 12.3 L [place] % (Auto) 7.7 Eos % (Auto) 0.4 [...] Sl. Cloudy Urine pH 5.0 Ur Specific [place] 1.020 Urine Protein 100 H Urine Glucose [...] of decompressive lumbar laminectomy, Diarrhea Disposition Disposition: [facility] What to do if you have Problems For any increased pain, shortness of breath, bleeding, nausea or vomiting, chestpain, or any unexpected problems, contact your Primary Care Provider. Call [facility] ([phone]) or report to the closest Emergency Room. Call 911 if necessary. 06/13/23 1519 <Electronically signed by Ash Geller DO> Cosigner Signature (if applicable): 06/12/23 1804 <Electronically signed by Jabari HELMS> CC: SCOOTER Woodson ~ Signed [facility] Work Phone: 1(750) 865-860701-08-2024 History and physical note Author Jeri Burns [facility] June 12, 2023 7:18pm Note Date/Time June 12, 2023 5: 53pm [facility] Medical Records Department [address] [place] [address] H&P Exam - Hospitalist 06/12/23 1753 MR#: [id number] Acct: [id number] Name: FILIBERTO VALDIVIA Rep #: [id number] : 1955 68 From: Jeri Burns MD [...] occupational status: retired current occupation: Worked at [employer] pets and animals: Yes pets and animals: [...] 78.9 H, Lymph % (Auto) 12.3 L, [place] % (Auto) 7.7, Eos % (Auto) 0.4, [...] Sl. Cloudy, Urine pH 5.0, Ur Specific [place] 1.020, Urine Protein 100 H, Urine Glucose [...] 16 minutes. Charges/Coding Visit Charges Inpatient E&M: 32411 Init Hosp L2 Procedures Hospitalists Procedures: 58351 Advncd Care Plan 30 Min 06/12/231917 <Electronically signed by Jeri Burns MD> Cosigner Signature (if applicable): CC: SCOOTER Woodson; Dr. Jeri Burns MD~ Signed [facility] Work Phone: 1(692) 606-181301-08-2024 History and physical note Author Jeri Burns [facility] June 12, 2023 7:18pm Note Date/Time June 12, 2023 5: 53pm [facility] Medical Records Department [address] [place] [address] H&P Exam - Hospitalist 06/12/23 1753 MR#: [id number] Acct: [id number] Name: FILIBERTO VALDIVIA Rep #: [id number] : 1955 68 From: Jeri Burns MD [...] well as hydrocodone 1 tablet x 1. [facility] Medical History Anxiety Basal cell [...] occupational status: retired current occupation: Worked at [employer] pets and animals: Yes pets and animals: [...] 78.9 H, Lymph % (Auto) 12.3 L, Prairie % (Auto) 7.7, Eos % (Auto) 0.4, [...] Sl. Cloudy, Urine pH 5.0, Ur Specific [place] 1.020, Urine Protein 100 H, Urine Glucose [...] 16 minutes. Charges/Coding Visit Charges Inpatient E&M: 08085 Init Hosp L2 Procedures Hospitalists Procedures: 27373 Advncd Care Plan 30 Min 06/12/231917 <Electronically signed by Jeri Burns MD> Cosigner Signature (if applicable): CC: SCOOTER Woodson; Dr. Jeri Burns MD~ Signed [facility] Work Phone: 1(429) 368-953701-02-2024 Discharge summary Author Ava Montanodelbert [facility] June 06, 2023 5:45pm Note Date/Time June 06, 2023 5: 45pm [facility] Medical Records Department [facility] [place] [address] Discharge Summary 06/06/23 1725 MR#: [id number] Acct: [id number] Name: FILIBERTO VALDIVIA Rep #: [id number] : 1955 68 From: Ava Castle DO PCP: SCOOTER Newton tus:ADM IN Location: [place] [id number] Providers Date of Admission: 05/27/23 Date of [...] 1. Discharge home with outpatient therapy at [facility] 2. Patient is unsafe to use a [...] laminectomy and fusion on 05/09/2023 at the [facility] by Dr. Leon) Procedures None Summary of Care Provided Minutes Spent on Discharge: 35 Hospital Course: FILIBERTO CORMIER, is a 68 F with PMH of HTN, HLD, Anxiety, chronic backpain with radiculopathy to the BL extremities, vitamin D deficiency and tobacco dependence who underwent a lumbar laminectomy and fusion at the [facility] by Dr. J Luis Leon on 05/09/2023. There were no post surgical complications and she was transferred to the acute inpt rehab unit at [facility] on 05/15/23 for 3 hours of therapy daily. She lives alone. She will not be able to drive post discharge. At the time of DC from acute rehab Filiberto did not feel ready/safe to go home by herself and she has no one to help her at home. She was transferred to the transitional care unit at [facility] on 05/27/2023 for additional therapy prior to [...] visit. She is using 5 mg of [place] 5/325mg 2-3 times a day and 2 [...] is going to have continued PT/OT at [place] as an OP at [facility] and the has arranged for the hospital [...] [facility] Primary Care Provider: Candy Woodson VEHICLE CALIBRATION ENGINEER Instructions Patient Instructions: Caring for Your Incision, [...] to call me. Happy new year. OFFICE: [phone] CELL: [phone] Discharge Orders/Prescriptions Prescriptions: New gabapentin 100 mg [...] [Non-Staff] - 06/09/23 9:00 am Candy Woodson VEHICLE CALIBRATION ENGINEER, VEHICLE CALIBRATION ENGINEER-C [Primary Care Provider] - (Filiberto to make this appointment) Disposition Disposition (needs filled in before D/C Order can be placed): Home, Self Care Charges/Coding Visit Charges Inpatient E&M: 05155 SNF Disch >30 Min 06/06/23 2038 <Electronically signed by Ava Castle DO> Cosigner Signature (if applicable): CC: VEHICLE CALIBRATION ENGINEER-C Candy Woodson; Dr. J Luis Leon MD; Dr. Ava Luque DO~ Signed [facility] Work Phone: 1(427) 523-225101-02-2024 Discharge summary Author Ava Castle [facility] June 06, 2023 5:25pm Note Date/Time June 06, 2023 1: 54pm [facility] Medical Records Department [address] [place] [address] Instructions for Home/Discharge Instructions 06/06/23 1344 MR#: [id number] Acct: [id number] Name: FILIBERTO VALDIVIA Rep #: [id number] : 1955 68 From: Ava Castle PCP: [...] to call me. Happy new year. OFFICE: [phone] CELL: [phone] Discharge Orders/Prescriptions Prescriptions: New gabapentin 100 mg [...] - 06/09/23 9:00 am Candy Woodson NP, VEHICLE CALIBRATION ENGINEER-C [Primary Care Provider] - (Filiberto to make this appointment) Disposition Disposition (needs filled in before D/C Order can be placed): Home, Self Care 06/06/23 3398<Electronically signed by Ava Castle DO>Ava Castle DO CC: TWILAC Candy Woodson; Dr. J Luis Leon MD ~ Signed [facility] Work Phone: [phone] 516-157812-29-2023 Progress note Author [facility] June 02, 2023 6:08pm Note Date/Time May 31, 2023 4:12pm [facility] Medical Records Department [address] [place] [address] Progress Note - Pharmacy 05/31/23 1611 MR#: [id number] Acct: [id number] Name: PATRIZIA CORMIERFILIBERTO RE Rep #: [id number] : 1955 68 From: Korin Matthew PCP: SCOOTER Newton Sta tus:ADM IN Location: [facility] TCU RX Drug Regimen Review Subjective/Objective [...] 06:20 Assessment/Plan: 1. Pain (chronic back pain): Kingsville 5/325mg 2T PO QHS and 1-2T PO [...] by Ava Castle DO> CC: ~ Signed [facility] Work Phone: [phone]) 197-598512-29-2023 Progress note Author Ava Castle [facility] June 02, 2023 5:15pm Note Date/Time June 02, 2023 5:15pm [facility] Medical Records Department [address] [place] [address] Progress Note 06/02/231711 MR#: [id number] Acct: [id number] Name: FILIBERTO VALDIVIA Rep #: [id number] : 1955 68 From: Ava Castle DO PCP: SCOOTER Newton tus:ADM IN Location: [place] [address]503- Progress Note Continues to c/o R buttock [...] Cosigner Signature (if applicable): CC: ~ Signed [facility] Work Phone: 1(261) 894-768512-25-2023 History and physical note Author Ava Montanodelbert [facility] May 29, 2023 2:58pm Note Date/Time May 29, 2023 10:30am [facility] Medical Records Department [address] [place] [address] History & Physical Exam 05/29/23 1007 MR#: [id number] Acct: [id number] Name: FILIBERTO VALDIVIA Rep #: [id number] : 1955 68 From: Ava Castle DO PCP: SCOOTER Newton tus:ADM IN Location: [place] [address] HPI - General General Date of Admission: [...] occupational status: retired current occupation: Worked at [employer] pets and animals: Yes pets and animals: [...] no [] Charges/Coding Visit Charges Inpatient E&M: 89288 SNF Init L2 05/29/23 1030 <Electronically signed [...] Woodson; Dr. Ava Castle DO ~* Signed [facility] Work Phone: Consult note Author Korin Matthew [facility] June 14, 2023 10:43am Note Date/Time June 14, 2023 1 0:43am [facility] Medical Records Department [address] [place] [address] Counseling Note - Pharmacy 06/14/23 1043 MR#: [id number] Acct: [id number] Name: FILIBERTO VALDIVIA Rep #: [id number] : 1955 68 From: Korin Matthew PCP: SCOOTER Newton Sta tus:ADM TESS Y Location: [place] [address] Pharmacy [place] Med Reconciliation Pharmacy Service has performed discharge [...] Signature (if applicable): Date CC: ~ Signed [facility] Work Phone: Discharge summary Author Adán Khalil [facility] June 14, 2023 10:11am Note Date/Time June 14, 2023 1 0:09am [facility] Medical Records Department [address] [place] [address] [facility] MR#: [id number] Acct: [id number] Name: FILIBERTO VALDIVIA Rep #: [id number] : 1955 68 From: Adán Radford PCP: SCOOTER Newton tus:ADM TESS Certification of patient admission REQUIRED AT TIME OF ADMISSION. I CERTIFY THAT POST-HOSPITAL [facility] SERVICES ARE REQUIRED TO BE GIVEN ON AN IN-PATIENT BASIS BECAUSE OF THE ABOVE NAMED PATIENT'S NEED FOR DETENTION CARE ON A CONTINUING BASIS FOR THE CONDITION(S) FOR WHICH HE/SHE WAS RECEIVING IN-PATIENT HOSPITAL SERVICES PRIOR TO HIS/HER TRANSFER TO THE [facility]. 06/14/23 1011<Electronically signed by Adán Khalil MD> [...] surgery of hemilaminectomy in May 2023 by [facility]. #1. 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 Stool for enteric pathogen is negative. [...] Adán Khalil Primary Care Provider: Candy Woodson VEHICLE CALIBRATION ENGINEER Consulting Providers: Jeri Burns; Ken Lopez Discharge [...] 0RF Referrals / Follow Up: Candy Woodson VEHICLE CALIBRATION ENGINEER, VEHICLE CALIBRATION ENGINEER-C [Primary Care Provider] - Disposition Disposition (needs filled in before D/C Order can be placed): NonSkilled NH/Intermed Care 06/14/23 1011 <Electronically signed by Adán Khalil MD> Cosigner Signature (if applicable): CC: SCOOTER Woodson; Dr. Ken Lopez, DO; Dr. Jeri Burns MD ~ [facility] Work Phone: Evaluation + Plan note Future Appointments Appointment Date:05/11/2021 09:00:00 AM Scheduled Provider:CANDY WOODSON APRN, CNP Location:[facility] [place] Appointment Type:PC OV Follow Up [facility] Pharmaron Holdingaluation + Plan note Future Appointments Appointment Date:05/12/2022 10:20:00 AM Scheduled Provider:CANDY WOODSON APRN - [place] Location:[facility] [place] Appointment Type:PC OV Follow Up Future Scheduled Tests Laboratory* Microalbumin Level Urine 02/09/22 [facility] Evaluation + Plan note Future Appointments Appointment Date:11/10/2022 10:20:00 AM Scheduled Provider:CANDY WOODSON APRN - [place] Location:[facility] [place] Appointment Type:PC OV Follow Up Future Scheduled Tests Laboratory* Lipid Profile 11/10/22 * Microalbumin Level Urine 02/09/22 * Microalbumin Level Urine 11/10/22 * Vitamin D Level 11/10/22 * Complete Metabolic Panel 11/10/22 [facility] Pharmaron Holdingaluation + Plan note Future Appointments Appointment Date:05/09/2023 09:40:00 AM Scheduled Provider:CANDY WOODSON APRN - INFORMATICS SCIENTIST Location:[facility] [place] Appointment Type:PC OV Follow Up Future Scheduled Tests Laboratory* Complete Blood Count 05/24/23 * Lipid Profile 05/24/23 * Albumin/Creatinine Ratio, Random Urine 05/24/23 * Vitamin D Level 05/24/23 * Complete Metabolic Panel 05/24/23 [facility] Pharmaron Holdingaluation + Plan note Future Appointments Appointment Date:10/12/2023 09:00:00 AM Scheduled Provider:CANDY WOODSON APRN - INFORMATICS SCIENTIST Location:[facility] [place] Appointment Type:PC OV Follow Up Future Scheduled Tests Laboratory* Complete Blood Count 05/24/23 * Lipid Profile 05/24/23 * Albumin/Creatinine Ratio, Random Urine 10/28/23 * Albumin/Creatinine Ratio, Random Urine 05/24/23 * Vitamin D Level 05/24/23 * Complete Metabolic Panel 05/24/23 [facility] Evaluation + Plan note Future Appointments Appointment Date:04/16/2024 10:30:00 AM Scheduled Provider: Location:[facility] Appointment Type:PT [facility] Appointment Date:04/18/2024 10:00:00 AM Scheduled Provider: Location:[facility] Appointment Type:PT [facility] Appointment Date:04/23/2024 10:30:00 AM Scheduled Provider: Location:[facility] Appointment Type:PT [facility] Appointment Date:04/23/2024 01:40:00 PM Scheduled Provider:CANDY WOODSON APRN, CNP Location:[facility] [place] Appointment Type:PC OV Follow Up Appointment Date:04/25/2024 11:00:00 AM Scheduled Provider: Location:[facility] Appointment Type:PT [facility] Appointment Date:04/30/2024 10:30:00 AM Scheduled Provider: Location:[facility] Appointment Type:PT [facility] Appointment Date:05/07/2024 10:30:00 AM Scheduled Provider: Location:[place] Appointment Type:PT [facility] Appointment Date:05/09/2024 10:30:00 AM Scheduled Provider: Location:[place] Appointment Type:[facility] Appointment Date:05/14/2024 10:30:00 AM Scheduled Provider: Location:[facility] Appointment Type:PT [facility] Future Scheduled Tests Laboratory* Lipid Profile 05/24/23 * Albumin/Creatinine Ratio, Random Urine 10/28/23 * Albumin/Creatinine Ratio, Random Urine 05/24/23 * Vitamin D Level 05/24/23 * Complete Metabolic Panel 05/24/23 Radiology* MA Mammo Diagnostic Right w/ Trav 05/04/24 * MA Mammo Diagnostic Right w/ Trav 10/13/23 * US Breast Right Complete 05/04/24 [facility] Evaluation + Plan note Future Appointments Appointment Date:04/23/2024 10:30:00 AM Scheduled Provider: Location:[facility] Appointment Type:[facility] Appointment Date:04/23/2024 01:40:00 PM Scheduled Provider:CANDY WOODSON APRN, CNP Location:[facility] [place] Appointment Type:PC OV Follow Up Appointment Date:04/25/2024 11:00:00 AM Scheduled Provider: Location:[facility] Appointment Type:PT Treatment - [place] Appointment Date:04/30/2024 10:30:00 AM Scheduled Provider: Location:[facility] Appointment Type:[facility] Appointment Date:05/07/2024 10:30:00 AM Scheduled Provider: Location:[facility] Appointment Type:[facility] Appointment Date:05/09/2024 10:30:00 AM Scheduled Provider: Location:[facility] Appointment Type:[facility] Appointment Date:05/10/2024 11:00:00 AM Scheduled Provider:MAURIZIO PENA MD Location:[facility] Appointment Type:PM OV Appointment Date:05/14/2024 10:30:00 AM Scheduled Provider: Location:[facility] Appointment Type:[facility] Future Scheduled Tests Laboratory* Lipid Profile 05/24/23 * Albumin/Creatinine Ratio, Random Urine 10/28/23 * Albumin/Creatinine Ratio, Random Urine 05/24/23 * Vitamin D Level 05/24/23 * Complete Metabolic Panel 05/24/23 Radiology* MA Mammo Diagnostic Right w/ Trav 05/04/24 * MA Mammo Diagnostic Right w/ Trav 10/13/23 * US Breast Right Complete 05/04/24 [facility] Evaluation + Plan note Future Appointments Appointment Date:05/24/2024 10:45:00 AM Scheduled Provider: Location:[facility] Appointment Type:PM Major Joint Bursa Inj/Aspiration ([facility] Appointment Date:05/27/2024 10:30:00 AM Scheduled [place] [id number] Location:[facility] Appointment Type:[facility] Appointment Date:05/30/2024 09:00:00 AM Scheduled Provider: Location:[facility] Appointment Type:MA Mammogram Diagnostic Right w/ Trav Appointment Date:05/30/2024 10:00:00 AM Scheduled Provider: Location:[facility] Appointment Type:US Breast Right Complete Appointment Date:06/11/2024 01:00:00 PM Scheduled Provider:CANDY WOODSON APRN - INFORMATICS SCIENTIST Location:[facility] Appointment Type:PC OV Future Scheduled Tests [...] 10/13/23 * US Breast Right Complete 05/30/24 [facility] Evaluation + Plan note Future Appointments Appointment Date:05/27/2024 10:30:00 AM Scheduled Provider:[place] [id number] Location:[facility] Appointment Type:[facility] Appointment Date:05/30/2024 09:00:00 AM Scheduled Provider: Location:[facility] Appointment Type:MA Mammogram Diagnostic Right w/ Trav Appointment Date:05/30/2024 10:00:00 AM Scheduled Provider: Location:[facility] Appointment Type:US Breast Right Complete Appointment Date:06/11/2024 01:00:00 PM Scheduled Provider:CANDY WOODSON APRN - INFORMATICS SCIENTIST Location:[facility] Appointment Type:PC OV Future Scheduled Tests [...] 10/13/23 * US Breast Right Complete 05/30/24 [facility] Evaluation + Plan note Future Appointments Appointment Date:06/11/2024 01:00:00 PM Scheduled Provider:CANDY WOODSON MANAGER RESPIRATORY CARE - INFORMATICS SCIENTIST Location:[facility] Appointment Type:PC OV Future Scheduled [...] MA Mammo Diagnostic Right w/ Trav 10/13/23 [facility] Evaluation + Plan note Future Appointments Appointment Date:06/18/2024 10:00:00 AM Scheduled Provider:[place] [id number] Location:[facility] Appointment Type:PT Outpatient Evaluation Appointment Date:12/10/2024 01:00:00 PM Scheduled Provider:CANDY WOODSON APRN, CNP Location:[facility] [place] Appointment Type:PC OV Future Scheduled Tests Laboratory* Lipid Profile 10/28/24 * Albumin/Creatinine Ratio, Random Urine 10/28/24 * Vitamin D Level 10/28/24 * Complete Metabolic Panel 10/28/24 Radiology* MA Mammo Diagnostic Right w/ Trav 12/09/24 * MA Mammo Diagnostic Right w/ Trav 10/13/23 * US Breast Right Complete 12/09/24 * US Breast Right Complete 06/06/24 [facility] Hitsbook + Plan note Future Appointments Appointment Date:12/10/2024 01:00:00 PM Scheduled Provider:CANDY WOODSON APRN, CNP Location:[facility] [place] Appointment Type:PC OV Future Scheduled Tests Laboratory* Albumin/Creatinine Ratio, Random Urine 10/28/24 Radiology* MA Mammo Diagnostic Right w/ Trav 12/09/24 * US Breast Right Complete 12/09/24 * US Breast Right Complete 06/06/24 [facility] Hitsbook + Plan note Future Appointments Appointment Date:06/10/2025 08:45:00 AM Scheduled Provider: Location:[facility] Appointment Type:PC Nurse Lab Appointment Date:06/17/2025 01:00:00 PM Scheduled Provider:CANDY WOODSON APRN, CNP Location:[facility] Appointment Type:PC OV Future Scheduled Tests Laboratory* Lipid Profile 06/12/25 * Albumin/Creatinine Ratio, Random Urine 10/28/24 * Albumin/Creatinine Ratio, Random Urine 06/12/25 * Vitamin D Level 06/12/25 * Complete Metabolic Panel 06/12/25 Radiology* US Breast Right Complete 06/06/24 [facility] Evaluation + Plan note Future Appointments Appointment Date:06/10/2025 08:45:00 AM Scheduled Provider: Location:[facility] Appointment Type:PC Nurse Lab Appointment Date:06/17/2025 [...] 06/29/25 * US Breast Right Complete 06/06/24 [facility] Evaluation note* Diagnosis Onset Date Resolution Status Acute blood loss anemia acut e Debility acute Hx of decompressive lumbar laminectomy acute Radicular pain of both lower extremities chronic Acute blood loss anemia acut e Debility acute Hx of decompressive lumbar laminectomy acute Radicular pain of both lower extremities chronic [facility] Work Phone: Evaluation note* Diagnosis Onset Date [...] acute Hx of decompressive lumbar laminectomy acute [facility] Work Phone: Evaluation note* Diagnosis Onset Date [...] resolved Hx of decompressive lumbar laminectomy acute [facility] Work Phone: Evaluation noteNo assessment information available [facility] Work Phone: Hospital course Narrative No data available for this section [facility] Hospital Discharge instructions No data available for this section [facility] Progress note No data available for this section [facility] Reason for referral (narrative)No reason for referral [facility] Work Phone: Summary Purpose Family History No Family History Records Found Relationship Condition Age at Onset Recorded Date/T sarah father Heart failure Unknown Relationship Condition Age at Onset Recorded Date/T sarah father Heart failure Unknown mother Kidney disorder Unknown Alzheimer's disease Unknown Advance Directives No Advanced Directives Records Found Advance Directive Response Recorded Date/ Time Name of Medical Power of Motion Study Engineer Alysia Moctezuma May 16, 2023 11:54am Name of Medical Power of Motion Study Engineer MARIBEL Snider, in safe at home May 30, 2023 1:53pm Living Will Yes May 30 023 1:53pm Power of Motion Study Engineer Yes May 30, 2023 1:53pm Advance Directive Response Recorded Date/ Time Name of Medical Power of Motion Study Engineer Alysia Moctezuma May 16, 2023 11:54am Name of Medical Power of Motion Study Engineer BEAU LEACH June 12, 2023 12:38pm Living Will Yes June 12 12:38pm Power of Motion Study Engineer Yes June 12 024 12:38pm Name of Medical Power of Motion Study Engineer MARIBEL Snider, in safe at home May 30, 2023 1:53pm Advance Directive Response Recorded Date/ Time Name of Medical Power of Motion Study Engineer Alysia Moctezuma May 16, 2023 11:54am Name of Medical Power of Motion Study Engineer beau leach June 12, 2023 9:16pm Living Will Yes June 12 9:16pm Power of Motion Study Engineer Yes June 12 9:16pm Name of Medical Power of Motion Study Engineer AMRIBEL Snider, in safe at home May 30, [...] DIARRHEA ADULT FTT, DIARRHEA ADULT FTT, DIARRHEA DETENTION LAB WORK Reason for Visit Acute blood [...] DIARRHEA ADULT FTT, DIARRHEA ADULT FTT, DIARRHEA DETENTION LAB WORK DETENTION LAB WORK Reason for Visit Acute blood [...] section and content) DATE CREATED AUTHOR 11/29/2017 [facility] DATE CREATED AUTHOR AUTHOR'S ORGANIZ ATION 10/07/2023 [facility] ([place]) DATE CREATED AUTHOR AUTHOR'S ORGANIZ ATION 07/20/2024 [facility] DATE CREATED AUTHOR AUTHOR'S ORGANIZ ATION 08/29/2024 [facility] DATE CREATED AUTHOR AUTHOR'S ORGANIZ ATION 04/13/2025 [facility] Care Team (unrecognized sect ion and content) Care Team Personnel Name: CANDY WOODSON APRN INFORMATICS SCIENTIST Position: P4 Advanced Practice Nurse Member Role: Primary Care Physician Address: Address: [address] [place] [address] Care Team Related Persons Name: BEAU LEACH Care Team Personnel Name: CANDY WOODSON APRN INFORMATICS SCIENTIST Position: P4 Advanced Practice Nurse Member Role: Primary Care Physician Address: Address: [address] [place] [address] Care Team Related Persons Name: BEAU LEACH Patient Care team informatio n (unrecognized section and content) Team Status: Active Member Role Status Dates Dr. Kwan Rivera MD Family Provider Active Candy Woodson VEHICLE CALIBRATION ENGINEER, VEHICLE CALIBRATION ENGINEER-C Primary Care Provider Active Team Status: Active Member Role Status Dates Candy Woodson VEHICLE CALIBRATION ENGINEER, VEHICLE CALIBRATION ENGINEER-C Primary Care Provider Active Dr. Mavis Vásquez , Admit Provider, Other Provider Ac tive Dr. Evonne Bishop MD Attending Provider Active Team Status: Active Member Role Status Dates Candy Woodson VEHICLE CALIBRATION ENGINEER, VEHICLE CALIBRATION ENGINEER-C Primary Care Provider Active Dr. Mavis Vásquez , DO Admit Provider Active Dr. Evonne Bishop MD Attending Provider, Other Prov ider Active Dr. Kwan Lai MD Other Provider Active Team Status: Active Member Role Status Dates Candy Woodson VEHICLE CALIBRATION ENGINEER, VEHICLE CALIBRATION ENGINEER-C Primary Care Provider Active Dr. Mavis Vásquez , DO Admit Provider Active Dr. Kwan Lai MD Other Provider Active Dr. Ava Castle , DO Attending Provider, Ot her Provider Active Team Status: Active Member Role Status Dates Candy Woodson VEHICLE CALIBRATION ENGINEER, VEHICLE CALIBRATION ENGINEER-C Primary Care Provider Active Dr. Larry Kent MD Admit Provider, Other Provider A ctive Dr. Ava Castle , DO Attending Provider Act francisca Team Status: Inactive Member Role Status Dates Candy Woodson VEHICLE CALIBRATION ENGINEER, VEHICLE CALIBRATION ENGINEER-C Primary Care Provider Active Dr. Mavis Vásquez , DO Admit Provider Active Dr. Kwan Lai MD Other Provider Active Dr. Ava Castle , DO Attending Provider Act francisca Team Status: Inactive Member Role Status Dates Candy Woodson VEHICLE CALIBRATION ENGINEER, VEHICLE CALIBRATION ENGINEER-C Primary Care Provider Active Dr. Larry Kent MD Admit Provider, Attending Provid er Active Team Status: Active Member Role Status Dates Candy Woodson VEHICLE CALIBRATION ENGINEER, VEHICLE CALIBRATION ENGINEER-C Primary Care Provider Active Dr. Ash Geller , DO Emergency Provider Active Dr. Jeri Burns MD Attending Provider Active Team Status: Active Member Role Status Dates Candy Woodson VEHICLE CALIBRATION ENGINEER, VEHICLE CALIBRATION ENGINEER-C Primary Care Provider Active Dr. Ash Geller , DO Emergency Provider Active Dr. Jeri Burns MD Admit Provider, Attending Prov ider Active Team Status: Active Member Role Status Dates Candy Woodson VEHICLE CALIBRATION ENGINEER, VEHICLE CALIBRATION ENGINEER-C Primary Care Provider Active Dr. Ash Geller , DO Emergency Provider Active Dr. Jeri Burns MD Admit Provider, Other Provider Active Dr. Adán Khalil MD Attending Provider, Other Provi melissa Active Dr. Ken Lopez , DO Other Provider Active Team Status: Inactive Member Role Status Dates Candy Woodson VEHICLE CALIBRATION ENGINEER, VEHICLE CALIBRATION ENGINEER-C Primary Care Provider Active Dr. Ash Geller , DO Emergency Provider Active Dr. Jeri Burns MD Admit Provider, Other Provider Active Dr. Adán Khalil MD Attending Provider Active Dr. Ken Lopez DO Other Provider Active Team Status: Inactive Member Role Status Dates Candy Woodson VEHICLE CALIBRATION ENGINEER, VEHICLE CALIBRATION ENGINEER-C Primary Care Provider Active Jessica AVILES MD Attending Provider Active Team Status: Active Member Role Status Dates Candy Woodson VEHICLE CALIBRATION ENGINEER, VEHICLE CALIBRATION ENGINEER-C Primary Care Provider Active Jessica AVILES MD Attending Provider Active Team Status: Active Member Role Status Dates Candy Woodson VEHICLE CALIBRATION ENGINEER, VEHICLE CALIBRATION ENGINEER-C Primary Care Provider Active Team Status: Inactive Member Role Status Dates Candy Woodson VEHICLE CALIBRATION ENGINEER, VEHICLE CALIBRATION ENGINEER-C Primary Care Provider Active Start: August 19, [...] BE BASED ON THE PRIMARY CLINICAL RECORDS. [employer] provides no warranty or guarantee of the accuracy or completeness of information in this document.
[2025-05-27 19:55] VITALS: BP 144/99; PULSE 72; RESP 16; TEMP 37.1; O2SAT 98
== END 2025-05-27 19:59 | disposition home or self-care (01) ==
PROVIDERS: Emergency Provider Emergency Medicine; PCP Nurse Practitioner Family; Visit Provider Emergency Medicine
DX: R04.0 Epistaxis (principal); Z79.82 Long term (current) use of aspirin; I10 Essential (primary) hypertension; Z79.02 Long term (current) use of antithrombotics/antiplatelets; Z95.5 Presence of coronary angioplasty implant and graft; E78.2 Mixed hyperlipidemia; I25.10 Atherosclerotic heart disease of native coronary artery without angina pectoris; K21.9 Gastro-esophageal reflux disease without esophagitis
CPT/HCPCS: 30901; 99284